=== PATIENT | female | born 1955 | race Caucasian/White ===

== ENCOUNTER 2020-09-29 21:40 | Emergency (ER) | payer MEDICARE, SELFPAY ==
--- NOTE | ~2020-09-29 | CT_ITS ---
EXAMINATION: CT ABDOMEN AND PELVIS WITHOUT CONTRAST CLINICAL INFORMATION: Lower abdominal pain. Review of prior studies indicates the history of ovarian cancer. COMPARISON: 01/20/2012. TECHNIQUE: Contiguous axial thin section helical images of the abdomen and pelvis were performed without oral or IV contrast. The data set was reformatted in the coronal and sagittal planes and reviewed on an independent workstation. DLP: 343 mGy-cm. FINDINGS: The visualized lung bases are clear. The visualized portions of the heart are unremarkable. The liver is of normal size and attenuation without focal lesions nor intrahepatic biliary ductal dilation. The patient is status post cholecystectomy. Surgical clips are present. The spleen, pancreas, adrenal glands are unremarkable. Both kidneys are of normal size and attenuation without hydronephrosis or nephrolithiasis. There is no abdominal free fluid. There is no retroperitoneal lymphadenopathy. Within the lower mesentery, there is an approximately 19 x 9 mm oval soft tissue focus. Within the lower quadrant just adjacent to the ascending colon, there is a similar appearing 14 by 8mm oval soft tissue focus. There is sigmoid diverticulosis without evidence of diverticulitis; otherwise, unremarkable unopacified loops of small and large bowel are identified. There is no pelvic free fluid. The urinary bladder is unremarkable. There is neither pelvic nor inguinal lymphadenopathy. Bone windows: Neither sclerotic nor lytic bone lesions are identified. CT/CT abdomen pelvis wo con IMPRESSION: Hydronephrosis nor nephrolithiasis. Two oval soft tissue lesions within the mesentery as stated above. The appearance could be enrollment representative of mesenteric adenitis, though these lesions are nonspecific. In consideration of the stated history of ovarian cancer, the appearance cannot be excluded as being enrollment representative of metastatic disease. Recommendation is for correlation with PET/CT for further tissue characterization. Automated exposure control (Care Dose) Adjustment of the mA and/or kv according to patient size (this includes techniques or standardized protocols for targeted exams where dose is matched to indication / reason for exam; i.e. extremities or head).
[2020-09-29 22:20] VITALS: BP 148/51; PULSE 84; RESP 18; TEMP 36.6; O2SAT 99; BMI 21.9
[2020-09-29 23:29] LABS: Glucose Urine UA 500 MG/DL (NEG); Leukocyte Esterase Urine NEG (NEG); Nitrite Urine NEG (NEG); PH 5.5 (5.0-8.0); Specific Gravity - Urine 1.025 (1.005-1.025); Urine Blood 3+ (NEG); Urine Ketones NEG (NEG); Urine Protein 2+ MG/DL (NEG-TRACE)
[2020-09-29 23:33] LABS: Appearance Urine TURBID; Color Urine RED
[2020-09-29 23:47] LABS: RBC Urine TNTC /HPF (0); Squamous Epithelial Cell Urine TRACE /LPF; WBC Urine 0-2 /HPF (0-4)
--- NOTE | 2020-09-30 00:47 | PC.NURSE ---
PT TO ROOM WITH C/O DIFFICULTY URINATING WITH PELVIC PAIN. PT CHG INTO GOWN AND MD AT BEDSIDE WITH PT. AWAITING FURTHER ORDERS.
--- NOTE | 2020-09-30 01:12 | ED.FEMALEGU ---
HPI - Female Genitourinary General Chief complaint: Urogenital-Female Stated complaint: trouble urinating Time Seen by Provider: 09/30/20 00:34 Source: patient Mode of arrival: ambulatory History of Present Illness HPI Narrative: This is a 65-year-old female with history of diabetes and ovarian cancer (2013) who states that she was recently told that she may have recurrence of her cancer and was scheduled to start chemotherapy this coming . She states that she has had a decrease in appetite and fatigue but denies any fevers, chills, nausea, vomiting, diarrhea, but then started having lower pelvic discomfort with an inability to pass urine this afternoon. She then states that when she did urinate it was ?all blood?. She says that earlier in the day she had spoken with her ?cancer doctor? in [place] but at that time she was not having the urinary symptoms that developed later. Related Data Allergies Allergy/AdvReac Type Severity Reaction Status Date / Time Iodinated Contrast Media Allergy Severe DIFF.BREATH Unverified 05/04/20 16:02 [IV Dye, Iodine Containing] ING Penicillins AdvReac Mild PASSED OUT Unverified 05/04/20 16:02 Environmental Allergy Mild ITCHY Uncoded 05/04/20 16:02 EYES/RUNNY NOSE DYE Allergy Unknown Uncoded 11/24/18 00:00 PENICILLIN G Allergy Unknown Uncoded 11/24/18 00:00 Review of Systems Review of Systems: Pertinent positives and negatives as stated in HPI and 10 point review of systems is otherwise negative. PMFSH Past Medical History Source: nursing notes reviewed Medical History Arthritis Diabetes Osteoporosis Pelvic cancer Surgical History History of colon resection Hx of cholecystectomy Social History Social History Advance Directives: No Physical Exam Vital Signs: Vital Signs: Last Vital Signs Temp 97.8 F 09/29/20 22:20 Pulse 75 09/30/20 02:00 Resp 18 09/30/20 02:00 BP 116/48 L 09/30/20 02:00 Pulse Ox 98 09/30/20 02:00 Body Mass Index 21.9 VITAL SIGNS: Reviewed. GENERAL: Well developed, well nourished, in no acute distress. HEAD: Normocephalic/atraumatic, EYES: PERRLA, EOMI OROPHARYNX: no oral lesions noted, posterior pharynx clear NECK: Supple, no adenopathy LUNGS: Normal breath sounds. SpO2<99> CARDIOVASCULAR: Regular rate and rhythm without noted murmurs ABDOMEN: Soft, tenderness along lower abdomen without rebound, non-distended with bowel sounds. NEUROLOGIC: Alert and oriented x 4. Course Course Course Narrative: This is a 65-year-old female with history and clinical presentation of recurrent cancer and now developing significant lower abdominal/pelvic pain with difficulty urinating and gross hematuria. On review of all investigations there are no acute findings as comparison lab work is from 2019. Although there is a noted anemia it is normocytic in nature. CT scan reported unremarkable bladder, however IV contrast was not used. Given that there was no evidence of hydronephrosis patient's stated complaint of an inability to urinate was likely secondary to not having a full bladder. On re-evaluation patient denies any further gross hematuria. She was discharged home in stable condition with strict instructions to follow-up with her primary care provider and discuss a referral to Urology as indicated. MDM - Female Genitourinary Lab Data Result diagrams: 09/30/20 00:58 09/30/20 00:58 Labs: Lab Results 09/29/20 09/30/20 09/30/20 Range/Units 22:32 00:58 00:58 WBC 8.1 (4.8-10.8) X10*3/uL RBC 4.09 L (4.20-5.50) X10*6/uL Hgb 11.5 L (12.0-16.0) g/dl Hct 35.2 L (37-47) % MCV 86.1 (80-98) fL MCH 28.1 (27.0-33.0) pg MCHC 32.7 (31.0-35.0) g/dl RDW 13.2 (11.0-16.0) % Plt Count 230 (160-400) X10*3/uL MPV 11.8 (9.4-12.3) fL Immature Gran % (Auto) 0.2 (0.0-0.4) % Neut % (Auto) 47.7 (45-73) % Lymph % (Auto) 42.7 H (20-40) % [place] % (Auto) 8.3 (2-11) % Eos % (Auto) 0.7 (0-4) % Baso % (Auto) 0.4 (0-2) % Lymph # (Auto) 3.4 (1.2-4.9) X10*3/uL [place] # (Auto) 0.7 (0.1-1.2) X10*3/uL Eos # (Auto) 0.1 (0.0-0.4) X10*3/uL Baso # (Auto) 0.0 (0.0-0.2) X10*3/uL Abs Immat Gran (auto) 0.02 (0.00-0.03) X10*3/uL Absolute Neuts (auto) 3.8 (2.0-8.3) X10*3/uL Absolute Nucleated RBC 0.000 (0.0-0.012) X10*3/uL Nucleated RBC % (auto) 0.0 (0.0-0.2) /100WBC Sodium 140 (135-145) mmol/L Potassium 4.0 (3.3-5.1) mmol/L Chloride 104 (96-108) mmol/L Carbon Dioxide 29 (22-29) mmol/L Anion Gap 11 L (12-20) BUN 11 (9-16) mg/dL Creatinine 0.69 (0.5-1.4) mg/dL Estim Creat Clear Calc 58.3 Estimated GFR > 60 Random Glucose 124 H (60-115) mg/dL Calcium 8.4 (8.4-10.2) mg/dL Total Bilirubin 0.3 (0.0-1.0) mg/dL AST 15 (5-31) U/L ALT 17 (0-31) U/L Alkaline Phosphatase 73 (39-117) U/L Total Protein 7.2 (6.5-8.0) g/dL Albumin 3.9 (3.5-5.0) g/dL Urine Color RED Urine Appearance TURBID Urine pH 5.5 (5.0-8.0) Ur Specific [place] 1.025 (1.005-1.025) Urine Protein 2+ H (NEG-TRACE) MG/DL Urine Glucose (UA) 500 H (NEG) MG/DL Urine Ketones NEG (NEG) MG/DL Urine Blood 3+ H (NEG) Urine Nitrite NEG (NEG) Ur Leukocyte Esterase NEG (NEG) Urine RBC TNTC H (0) /HPF Urine WBC 0-2 (0-4) /HPF Ur Squamous Epith Cells TRACE /LPF Urine Bacteria NONE /LPF Discharge Plan Discharge Clinical Impression: Acute urinary retention Hematuria Qualifiers: Hematuria type: gross Qualified Code(s): R31.0 - Gross hematuria Patient Disposition: Home, Self-Care Instructions: Hematuria (ED), Acute Urinary Retention in Women (ED) Additional Instructions: 1. Reanude todos los medicamentos caseros seg?n lo prescrito. 2. Lalito un seguimiento con dwyer proveedor de atenci?n primaria y analice alphonse posible derivaci?n a Urolog?a para dwyer hematuria. 3. Incrementar la hidrataci?n de los fluidos especialmente con agua. Regrese al departamento de emergencias si experimenta un empeoramiento vinnie de ej s?ntomas. Referrals: Katalina Larson MD [Primary Care Provider] - 2 days (For evaluation after seen in the emergency department for hematuria.)
--- NOTE | 2020-09-30 01:23 | PC.NURSE ---
BLADDER SCAN REVEALED 20ML OF URINE IN BLADDER, MD AWARE. IV PLACED TO LAC, LABS DRAWN TO LAB. NS UP AND RUNNING W/O, SITE INTACT. WILL CONTINUE TO MONITOR PT.
[2020-09-30] MEDS: 0.9 % Sodium Chloride 2,000 ML 999 ML IV (01:35)
[2020-09-30 01:37] LABS: Basophils Percent Auto 0.4 % (0-2); Eosinophils Absolute Auto 0.1 X10*3/uL (0.0-0.4); Eosinophils Percent Auto 0.7 % (0-4); Hematocrit 35.2 % (37-47); Hemoglobin 11.5 g/dl (12.0-16.0); Imm Gran Abs Auto 0.02 X10*3/uL (0.00-0.03); Imm Gran Pct Auto 0.2 % (0.0-0.4); Lymphocytes Absolute Auto 3.4 X10*3/uL (1.2-4.9); Lymphocytes Percent Auto 42.7 % (20-40); MANUAL DIFF FLAG NO; Mean Corpuscular HGB Conc 32.7 g/dl (31.0-35.0); Mean Corpuscular Hemoglobin 28.1 pg (27.0-33.0); Mean Corpuscular Volume 86.1 fL (80-98); Mean Platelet Volume 11.8 fL (9.4-12.3); Monocytes Absolute Auto 0.7 X10*3/uL (0.1-1.2); Monocytes Percent Auto 8.3 % (2-11); Neutrophils Absolute Auto 3.8 X10*3/uL (2.0-8.3); Neutrophils Percent Auto 47.7 % (45-73); Platelet Count 230 X10*3/uL (160-400); Red Blood Count 4.09 X10*6/uL (4.20-5.50); Red Cell Distribution Width 13.2 % (11.0-16.0); White Blood Count 8.1 X10*3/uL (4.8-10.8)
[2020-09-30 02:00] VITALS: BP 116/48; PULSE 75; RESP 18; O2SAT 98
[2020-09-30 02:19] LABS: Alanine Aminotransferase 17 U/L (0-31); Albumin Level 3.9 g/dL (3.5-5.0); Alkaline Phosphatase 73 U/L (39-117); Anion Gap 11 (12-20); Aspartate Amino Transferase 15 U/L (5-31); Bilirubin Total 0.3 mg/dL (0.0-1.0); Blood Urea Nitrogen 11 mg/dL (9-16); Calcium 8.4 mg/dL (8.4-10.2); Carbon Dioxide 29 mmol/L (22-29); Chloride 104 mmol/L (96-108); Creatinine Clr Calc Pharmacy 58.3; Estimated Glomerular Filt Rate > 60; Glucose Random 124 mg/dL (60-115); Sodium 140 mmol/L (135-145); Total Protein 7.2 g/dL (6.5-8.0)
[2020-09-30 05:16] LABS: Glucose Urine UA NEG (NEG); Leukocyte Esterase Urine NEG (NEG); Nitrite Urine NEG (NEG); Specific Gravity - Urine 1.015 (1.005-1.025); Urine Blood 1+ (NEG); Urine Ketones NEG (NEG); Urine Protein NEG (NEG-TRACE)
[2020-09-30 05:17] LABS: Appearance Urine CLEAR; Color Urine COLORLESS
[2020-09-30 05:40] LABS: Bacteria Urine TRACE /LPF; Squamous Epithelial Cell Urine TRACE /LPF; WBC Urine 0-2 /HPF (0-4)
== END 2020-09-30 05:14 | disposition home or self-care (01) ==
PROVIDERS: Emergency Provider Student in an Organized Health Care Education/Training Program; PCP Pediatrics
DX: R33.9 Retention of urine, unspecified (principal); R31.0 Gross hematuria; C76.3 Malignant neoplasm of pelvis; E11.9 Type 2 diabetes mellitus without complications; Z90.49 Acquired absence of other specified parts of digestive tract
CPT/HCPCS: 36415; 51798; 74176; 80053; 81001; 85025; 96360; 99284

== ENCOUNTER 2021-03-18 10:00 | Emergency (ER) | payer MEDICARE, SELFPAY ==
--- NOTE | ~2021-03-18 | CT_ITS ---
EXAMINATION: CT ABDOMEN AND PELVIS WITHOUT CONTRAST CLINICAL INFORMATION: Abdominal pain, on feeding tube COMPARISON: 09/30/2020 TECHNIQUE: Multidetector volumetric imaging was performed from the superior aspect of the liver through the pubic symphysis. Sagittal and coronal reformatted images were obtained on the technologist's workstation. This CT examination was performed using dose optimization techniques as appropriate, variously including the following: *Automated exposure control *Adjustment of mA and/or kV according to patient size (this includes techniques or standardized protocols for targeted exams where dose is matched to indication/reason for exam; i.e. extremities or head) *Use of iterative reconstruction technique DLP: 274 mGy-cm FINDINGS: LUNG BASES: Small, 0.3 cm noncalcified nodule in the posterior right lower lobe is new compared to 09/30/2020 (image 43, series 4). No pulmonary consolidation or pleural effusion at either lung base. LIVER: Mild, diffuse steatosis of the liver. No focal hepatic lesions are detected on this noncontrast examination. GALLBLADDER AND BILIARY TREE: Gallbladder is surgically absent. No intrahepatic or extrahepatic bile duct dilatation. PANCREAS: Normal. No edema, pancreatic ductal dilatation or mass. SPLEEN: Normal. ADRENAL GLANDS: Normal. KIDNEYS AND URETERS: The kidneys have normal size and cortical thickness. No mass or perinephric fluid collection. No urolithiasis or hydroureteronephrosis. BLADDER: Urinary bladder is nearly completely empty and suboptimally evaluated. No bladder calculi. BOWEL AND PERITONEUM: Stomach is underdistended. No dilated bowel loops. The evaluation of bowel is limited on this examination performed without either oral or intravenous contrast. Compared to 09/30/2020, there has been interval surgery of small bowel with new anastomotic suture lines seen along small bowel in the lower abdomen/pelvis. The loop of bowel extending between the region of anastomoses is collapsed and appears to have a thickened wall, and there is surrounding mesenteric fat stranding. However, no evidence of an organized fluid collection/abscess or pneumoperitoneum. No evidence of a hyperdense hematoma in the mesentery in this area. There is an intact anastomosis of the sigmoid colon in the left lower pelvis. ABDOMINAL WALL: Mild haziness around tissues of the midline postoperative wound of the abdominal wall. No abdominal wall fluid collection or hernia. VASCULATURE: Mild atherosclerosis of the abdominal aorta without aneurysm. LYMPH NODES: No pathologic sized lymph nodes in the abdomen or pelvis. No inguinal lymphadenopathy. PELVIC VISCERA: The uterus is absent. No adnexal mass or pelvic free fluid. SKELETAL: Bones are diffusely osteopenic. No suspicious osseous lesions. CT/CT abdomen pelvis wo con IMPRESSION: * Small, 0.3 cm nodule in the posterior right lower lobe is new compared to 09/30/2020. Based on Fleischner Society guidelines, follow-up is not recommended in a low-risk patient and would be considered optional at 12 months in a high risk patient. However, if the patient has history of carcinoma, then noncontrast study chest CT follow up at a shorter time interval may be warranted. * Diffuse hepatic steatosis. * Findings are suspicious for a focal enteritis, however, correlation with details from recent surgery would be helpful. There is mesenteric fat stranding in the area of small bowel surgery. The bowel lundberg in the region of surgery appear to be thickened, inflamed, and there is a collapsed segment of small bowel extending between the areas of bowel anastomosis. However, no abnormally dilated loops. No bowel obstruction. There is no mesenteric abscess. Note that evaluation of bowel is suboptimal due to the noncontrast nature of this test.
[2021-03-18 10:05] VITALS: BP 108/66; BP 111/52; PULSE 101; PULSE 110; TEMP 36.6; O2SAT 100; O2SAT 98; BMI 18.3
--- NOTE | 2021-03-18 10:44 | ED.FEMALEGU ---
HPI - Female Genitourinary General Chief complaint: Urogenital-Female Stated complaint: BLOOD IN URINE,ABD PAIN H/O OVARIAN CANCER Time Seen by Provider: 03/18/21 10:17 Source: patient Mode of arrival: ambulatory Limitations: no limitations History of Present Illness HPI Narrative: 66-year-old female status post hist and ovarian removal patient on chemotherapy has been having hematuria and clots with her urine. Patient complaining of belly pain. Patient has been able eat for the past 2 months she gets all her care at [facility] but states that when she was there recently she had surgery the closed up and then they did nothing for her. Patient denies fevers falls she denies nausea vomiting or diarrhea. Related Data Previous Rx's Medication Instructions Recorded levofloxacin 500 mg tablet 500 mg PO DAILY #7 tab 03/18/21 metronidazole 500 mg tablet 500 mg PO TID #30 tab 03/18/21 Allergies Allergy/AdvReac Type Severity Reaction Status Date / Time Iodinated Contrast Media Allergy Severe DIFF.BREATH Unverified 05/04/20 16:02 [IV Dye, Iodine Containing] ING Penicillins AdvReac Mild PASSED OUT Unverified 05/04/20 16:02 Environmental Allergy Mild ITCHY Uncoded 05/04/20 16:02 EYES/RUNNY NOSE DYE Allergy Unknown Uncoded 11/24/18 00:00 PENICILLIN G Allergy Unknown Uncoded 11/24/18 00:00 Review of Systems Review of Systems: Review of systems: General: Patient denies any fever chills recent illness or falls Musculoskeletal: Denies back pain or body aches or other injuries HEENT: denies headache, runny nose, ear pain Respiratory: denies shortness of breath, cough Cardiovascular: no chest pain or palpitations : Passing blood clots hematuria denies dysuria, frequency Abdomen: no nausea vomiting she does have generalized abdominal pain Extremities: no swelling, no pain Skin: no diaphoresis Yes all other systems are reviewed and are negative PMFSH Past Medical History Medical History Arthritis Diabetes Osteoporosis Pelvic cancer Surgical History History of colon resection Hx of cholecystectomy Social History Social History Advance Directives: No Advance Directives Information Provided: No Patient : No Physical Exam Vital Signs: Vital Signs: Last Vital Signs Temp 97.8 F 03/18/21 10:05 Pulse 88 03/18/21 12:09 BP 111/38 L 03/18/21 12:12 Pulse Ox 100 03/18/21 12:09 Body Mass Index 18.3 General: Well-appearing well-nourished in no signs of distress HEENT: Normocephalic atraumatic Neck: No signs of JVD, no masses no tenderness or lymphadenopathy Cardiovascular: Regular rate and rhythm Respiratory: Clear to auscultation bilaterally Abdomen: Soft tender all over the belly she has got a healing but recent surgical scar to her mid abdomen Extremities: Normal pedal pulses no signs of edema Skin: Dry warm no rashes Back: No tenderness full ROM MDM - Female Genitourinary MDM Narrative Medical decision making narrative: Concern for postsurgical issue versus UTI patient also having blood clots could be cancer. 1258 patient required anything for pain urine does not show any bacteria just blood. Also the patient antibiotics to see if this is inflammation that is will benefit from antibiotics initially to follow-up with urology. I did explain this to her and her daughter. CT scan does not show anything surgical that just this was nonspecific enteritis at the site she has follow-up with her surgeon on Friday not think this patient needs to be admitted for this I will start the patient on levoflaxacin and flagyl Lab Data Result diagrams: 03/18/21 11:21 03/18/21 11:21 Labs: Lab Results 03/18/21 03/18/21 03/18/21 Range/Units 11: 11:21 11:21 WBC 10.9 H (4.8-10.8) X10*3/uL RBC 4.31 (4.20-5.50) X10*6/uL Hgb 10.6 L (12.0-16.0) g/dl Hct 34.1 L (37-47) % MCV 79.1 L (80-98) fL MCH 24.6 L (27.0-33.0) pg MCHC 31.1 (31.0-35.0) g/dl RDW 16.1 H (11.0-16.0) % Plt Count 410 H D (160-400) X10*3/uL MPV 11.2 (9.4-12.3) fL Immature Gran % (Auto) 0.5 H (0.0-0.4) % Neut % (Auto) 62.0 (45-73) % Lymph % (Auto) 26.4 (20-40) % Day % (Auto) 9.7 (2-11) % Eos % (Auto) 1.0 (0-4) % Baso % (Auto) 0.4 (0-2) % Lymph # (Auto) 2.9 (1.2-4.9) X10*3/uL Day # (Auto) 1.1 (0.1-1.2) X10*3/uL Eos # (Auto) 0.1 (0.0-0.4) X10*3/uL Baso # (Auto) 0.0 (0.0-0.2) X10*3/uL Abs Immat Gran (auto) 0.05 H (0.00-0.03) X10*3/uL Absolute Neuts (auto) 6.8 (2.0-8.3) X10*3/uL Absolute Nucleated RBC 0.000 (0.0-0.012) X10*3/uL Nucleated RBC % (auto) 0.0 (0.0-0.2) /100WBC Sodium 138 (135-145) mmol/L Potassium 3.9 (3.3-5.1) mmol/L Chloride 104 (96-108) mmol/L Carbon Dioxide 24 (22-29) mmol/L Anion Gap 14 (12-20) BUN 9 (9-16) mg/dL Creatinine 0.56 (0.5-1.4) mg/dL Estim Creat Clear Calc 66.5 Estimated GFR > 60 Random Glucose 160 H (60-115) mg/dL Calcium 8.8 (8.4-10.2) mg/dL Total Bilirubin 0.2 (0.0-1.0) mg/dL Direct Bilirubin < 0.2 (0.0-0.5) mg/dL AST 12 (5-31) U/L ALT 11 (0-31) U/L Alkaline Phosphatase 101 D (39-117) U/L Total Protein 7.6 (6.5-8.0) g/dL Albumin 3.4 L (3.5-5.0) g/dL Urine Color PINK Urine Appearance HAZY Urine pH 5.5 (5.0-8.0) Ur Specific [place] 1.010 (1.005-1.025) Urine Protein 1+ H (NEG-TRACE) MG/DL Urine Glucose (UA) NEG (NEG) MG/DL Urine Ketones NEG (NEG) MG/DL Urine Blood 3+ H (NEG) Urine Nitrite NEG (NEG) Ur Leukocyte Esterase NEG (NEG) Urine RBC TNTC H (0) /HPF Urine WBC 1-4 (0-4) /HPF Ur Squamous Epith Cells 1+ /LPF Urine Bacteria NONE /LPF Urine Mucus 1+ /LPF Discharge Plan Discharge Clinical Impression: Urinary tract infection, Enteritis Patient Disposition: Home, Self-Care Instructions: Urinary Tract Infection in Women (ED), Hematuria (ED), Enteritis (ED) Additional Instructions: Please keep your appointment for Friday. Please describe the pain you are having. If you hav any other concerns please return to the ED. Prescriptions: New levofloxacin 500 mg tablet 500 mg PO DAILY Qty: 7 RF: 0 metronidazole 500 mg tablet 500 mg PO TID Qty: 30 RF: 0
[2021-03-18] MEDS: 0.9 % Sodium Chloride 500 ML 999 ML IV (10:55)
[2021-03-18 11:26] LABS: MANUAL DIFF FLAG NO
[2021-03-18 11:29] LABS: Basophils Percent Auto 0.4 % (0-2); Eosinophils Absolute Auto 0.1 X10*3/uL (0.0-0.4); Hematocrit 34.1 % (37-47); Hemoglobin 10.6 g/dl (12.0-16.0); Imm Gran Abs Auto 0.05 X10*3/uL (0.00-0.03); Imm Gran Pct Auto 0.5 % (0.0-0.4); Lymphocytes Absolute Auto 2.9 X10*3/uL (1.2-4.9); Lymphocytes Percent Auto 26.4 % (20-40); Mean Corpuscular HGB Conc 31.1 g/dl (31.0-35.0); Mean Corpuscular Hemoglobin 24.6 pg (27.0-33.0); Mean Corpuscular Volume 79.1 fL (80-98); Mean Platelet Volume 11.2 fL (9.4-12.3); Monocytes Absolute Auto 1.1 X10*3/uL (0.1-1.2); Monocytes Percent Auto 9.7 % (2-11); Neutrophils Absolute Auto 6.8 X10*3/uL (2.0-8.3); Platelet Count 410 X10*3/uL (160-400); Red Blood Count 4.31 X10*6/uL (4.20-5.50); Red Cell Distribution Width 16.1 % (11.0-16.0); White Blood Count 10.9 X10*3/uL (4.8-10.8)
[2021-03-18 11:32] LABS: Glucose Urine UA NEG (NEG); Leukocyte Esterase Urine NEG (NEG); Nitrite Urine NEG (NEG); PH 5.5 (5.0-8.0); UACC Culture Trigger NO; Urine Blood 3+ (NEG); Urine Ketones NEG (NEG); Urine Protein 1+ MG/DL (NEG-TRACE)
[2021-03-18 11:50] LABS: Appearance Urine HAZY; Color Urine PINK
[2021-03-18 11:52] LABS: Mucus Urine 1+ /LPF; RBC Urine TNTC /HPF (0); Squamous Epithelial Cell Urine 1+ /LPF
[2021-03-18 11:55] LABS: Alanine Aminotransferase 11 U/L (0-31); Albumin Level 3.4 g/dL (3.5-5.0); Alkaline Phosphatase 101 U/L (39-117); Anion Gap 14 (12-20); Aspartate Amino Transferase 12 U/L (5-31); Bilirubin Direct < 0.2 mg/dL (0.0-0.5); Bilirubin Total 0.2 mg/dL (0.0-1.0); Blood Urea Nitrogen 9 mg/dL (9-16); Calcium 8.8 mg/dL (8.4-10.2); Carbon Dioxide 24 mmol/L (22-29); Chloride 104 mmol/L (96-108); Creatinine Clr Calc Pharmacy 66.5; Estimated Glomerular Filt Rate > 60; Glucose Random 160 mg/dL (60-115); Potassium 3.9 mmol/L (3.3-5.1); Sodium 138 mmol/L (135-145); Total Protein 7.6 g/dL (6.5-8.0)
[2021-03-18 12:09] VITALS: BP 114/30; PULSE 88; O2SAT 100
[2021-03-18 12:12] VITALS: BP 111/38
[2021-03-18] MEDS: metroNIDAZOLE 500 MG TABLET PO (13:26)
[2021-03-18] MEDS: levoFLOXacin 500 MG TABLET PO (13:26)
--- NOTE | 2021-03-18 13:53 | PC.NURSE ---
Pt request to flush picc line at home.
== END 2021-03-18 13:55 | disposition home or self-care (01) ==
PROVIDERS: Emergency Provider Student in an Organized Health Care Education/Training Program; PCP Pediatrics
DX: N39.0 Urinary tract infection, site not specified (principal); K52.9 Noninfective gastroenteritis and colitis, unspecified; C56.9 Malignant neoplasm of unspecified ovary; R31.9 Hematuria, unspecified; Z79.899 Other long term (current) drug therapy
CPT/HCPCS: 36415; 74176; 80048; 80076; 81001; 85025; 96360; 96361; 99284

== ENCOUNTER 2021-05-03 15:48 | Inpatient (IN) | payer MEDICARE, SELFPAY ==
--- NOTE | ~2021-05-03 | CT_ITS ---
EXAMINATION: CT ABDOMEN AND PELVIS WITHOUT CONTRAST CLINICAL INFORMATION: Abdominal and pelvic pain. COMPARISON: CT abdomen pelvis 03/18/2021 TECHNIQUE: Multidetector volumetric imaging was performed from the superior aspect of the liver through the pubic symphysis. Sagittal and coronal reformatted images were obtained on the technologist's workstation. This CT examination was performed using dose optimization techniques as appropriate, variously including the following: *Automated exposure control *Adjustment of mA and/or kV according to patient size (this includes techniques or standardized protocols for targeted exams where dose is matched to indication/reason for exam; i.e. extremities or head) *Use of iterative reconstruction technique DLP: 293 mGy-cm FINDINGS: LUNG BASES: There is are several right lower lobe pulmonary nodules. A 5 mm nodule right lower lobe axial image 13/7, a 6 7 nodule right lower lobe image 12/7, 2 nodule right lower lobe axial image 10/7, slightly ill-defined 9 mm nodule right lower lobe axial image 6/7. On the last exam only one nodule is seen in this region. Scratch that LIVER, GALLBLADDER, AND BILIARY TREE: The liver is normal in size, shape, and attenuation. No focal hepatic lesion or biliary ductal dilatation is present. The gallbladder has been surgically removed. PANCREAS: Unremarkable. SPLEEN: Unremarkable. ADRENAL GLANDS: Unremarkable. KIDNEYS AND URETERS: The kidneys are normal in size, shape, and attenuation. No hydronephrosis, hydroureter, or calculi seen. No perinephric stranding. BLADDER: Unremarkable. GASTROINTESTINAL TRACT: The stomach is nondistended and appears unremarkable. There is anastomotic suture line involving segments of small bowel loop in the midabdomen. There are multiple dilated small bowel loops with air-fluid level extending to the right midabdomen quadrant on axial image 46/3 where a second suture line is noted. Beyond this line there appears to be normal caliber small bowel loops. This may represent the site of narrowing. There is postsurgical mesenteric edema and scarring in this region. There is scattered diverticuli seen throughout the colon without any diverticulitis. No free air or free fluid seen. ABDOMINAL WALL: Postsurgical changes are seen along the anterior midline abdominal wall from surgical intervention. There is no evidence of hernia. LYMPH NODES: Normal. VASCULAR: Unremarkable. PELVIC VISCERA: The uterus is likely surgically removed. No adnexal mass or free fluid seen. No abnormal pelvic lymph nodes. OSSEOUS STRUCTURES: No lytic or sclerotic process seen. CT/CT abdomen pelvis wo con IMPRESSION: There are 2 areas of anastomotic suture line involving the small bowel loops in midabdomen. At one of the midline suture line there are several moderately dilated small bowel loops with moderate to large air-fluid level extending to the second suture level on axial image 46/3. This is likely cause of obstruction suspected. It could be secondary to adhesions or stricture or narrowing at the suture site. The small bowel loops beyond this segment are normal. Colonic diverticulosis without diverticulitis. No free air or free fluid. Multiple new nodules seen in the right lower lobe worrisome for metastatic disease.
--- NOTE | ~2021-05-03 | XR_ITS ---
EXAMINATION: XR ABDOMEN KUB CLINICAL INDICATION: Abdominal pain COMPARISON: CT scan and pelvis May 03, 2021 TECHNIQUE: AP view of the abdomen. FINDINGS: The bowel gas pattern is normal with no evidence of ileus or obstruction. Small to moderate volume of stool in colon. No unusual soft tissue calcifications are noted. Surgical clips right upper quadrant of abdomen. Surgical sutures in the mid and lower abdomen pelvis. Mild degenerative spondylosis of the lumbar spine. Moderate degenerative joint disease of hips bilateral. EKG leads and a catheter overlie the abdomen. XR/XR KUB IMPRESSION: No acute abnormality.
[2021-05-03 16:31] VITALS: BP 94/47; PULSE 96; RESP 18; TEMP 37.4; O2SAT 100; BMI 19.4
[2021-05-03 17:37] VITALS: BP 108/52; PULSE 95; RESP 20; TEMP 36.5; O2SAT 95
[2021-05-03 17:53] LABS: Appearance Urine CLEAR; Color Urine YELLOW; Glucose Urine UA NEG (NEG); Leukocyte Esterase Urine NEG (NEG); Nitrite Urine POS (NEG); UACC Culture Trigger YES; Urine Blood 2+ (NEG); Urine Ketones NEG (NEG); Urine Protein 1+ MG/DL (NEG-TRACE)
--- NOTE | 2021-05-03 17:57 | ED_ITS ---
HPI - Abdominal Pain General Chief Complaint: Abdominal Pain Stated Complaint: fever, abd pain Time Seen by Provider: 05/03/21 17:57 Source: patient Mode of arrival: ambulatory Limitations: no limitations History of Present Illness HPI narrative: 66-year-old female with past medical history of diabetes and ovarian cancer is here today for complaining of pelvic pain and bilateral flank pain. Patient reports that she had surgery at [facility] in her urologist office ? Cystoscopy. Patient had no urinary tract infection, was seen here in the beginning of March for abdominal pain and was discharged home with enteritis and blood in her urine. Patient reports chills and fever started yesterday. Denies any vomiting, diarrhea or constipation. Patient reports that she does have trouble passing urine, patient denies any other symptoms. Related Data Home Medications Medication Instructions Recorded Confirmed fluticasone propionate 50 1 spray INTRANASAL DAILY PRN 05/03/21 05/03/21 mcg/actuation nasal spray,suspension melatonin 5 mg tablet 1 tab PO BEDTIME 05/03/21 05/03/21 metformin 1,000 mg tablet 1 tab PO BID 05/03/21 05/03/21 sennosides 8.6 mg-docusate sodium 2 tab PO DAILY PRN 05/03/21 05/03/21 50 mg tablet (Senexon-S) Allergies Allergy/AdvReac Type Severity Reaction Status Date / Time Iodinated Contrast Media Allergy Severe DIFF.BREATH Verified 05/03/21 16:31 [IV Dye, Iodine Containing] ING Penicillins AdvReac Mild PASSED OUT Verified 05/03/21 16:31 Environmental Allergy Mild ITCHY Uncoded 05/04/20 16:02 EYES/RUNNY NOSE DYE Allergy Unknown Unknown Uncoded 05/03/21 16:31 PENICILLIN G Allergy Unknown Unknown Uncoded 05/03/21 16:31 Review of Systems Review of Systems Constitutional : No Weight loss, No Fever, No Chills, No Night Sweats, No Fatigue, No Malaise ENT/Mouth : No Hearing loss, No Ear Pain, No Nasal Congestion, No Sinus Pain, No Hoarseness, No sore throat, No Rhinorrhea, No Swallowing Difficulty Eyes: No Eye Pain, No Swelling, No Redness, No Foreign Body, No Discharge, No Vision Changes Cardiovascular : No Chest Pain, No SOB, No Dyspnea on Exertion, No Orthopnea, No Edema, No Palpitations Respiratory : No Cough, No Sputum, No Wheezing, No Smoke Exposure, No Dyspnea Gastrointestinal : No Nausea, No Vomiting, No Diarrhea, No Constipation, abdominal Pain, No Hematochezia, No Melena Genitourinary : no irregular bleeding, No Dysuria, Urinary Frequency, No Hematuria, No Urinary Incontinence, Urgency, No Flank Pain, Urinary Flow Changes, No Hesitancy Musculoskeletal : No joint pain, No Myalgias, No Joint Swelling Skin : No Skin Lesions, No rash Neuro : No Weakness, No Numbness, No Paresthesias, No Loss of Consciousness, No Dizziness, No Headache Psych : No Anxiety/Panic, No Depression, No SI/HI/AH/VH, No Social Issues, Heme/Lymph: No Bruising, No Bleeding,No Lymphadenopathy Endocrine : No Polyuria, No Polydipsia, No Temperature Intolerance Yes all other systems are reviewed and are negative Physical Exam Vital Signs: Vital Signs: Last Vital Signs Temp 99.1 F 05/03/21 19:50 Pulse 100 05/03/21 19:50 Resp 18 05/03/21 19:50 BP 110/37 L 05/03/21 19:50 Pulse Ox 98 05/03/21 19:50 Body Mass Index 19.4 Const: General: healthy appearing, no acute distress and well developed Nutritional Appearance: well nourished Orientation/consciousness: patient oriented x3 Neck: Neck: Yes normal visual inspection, Yes full ROM and Yes trachea midline Thyroid: Thyroid normal Resp: Auscultation: clear to auscultation bilaterally Cardio: Rate: regular rate Rhythm: regular rhythm GI: Inspection: Yes normal to inspection and No distended Palpation (GI): Soft to palpation, Tenderness to palpation present (GI) (Lower mid abdomen and pelvic area), Guarding due to palpation present (GI) in the LLQ and other (CVA tenderness), No hepatosplenomegaly present and Bladder palpation abnormal (Tenderness over bladder region) Auscultation: normal bowel sounds : General: Yes Bladder palpation abnormal (Tenderness over bladder region) and Yes CVA tenderness Back/Spine/Pelvis: Back: CVA tenderness Skin: General skin exam: elasticity normal, turgor normal and dry skin Neuro: General: patient oriented x3 Course Course Course Narrative: 66 years old female with past medical history of diabetes and ovarian cancer is here today for complaints of fever, chills, pelvic and flank pain. Patient had procedure at [facility] with her urologist 2 days ago and started with fevers and chills yesterday. Patient reports pain and burning with urination, urgency. Patient denies nausea, vomiting, diarrhea. Patient denies any melena, hematochezia, unintentional weight loss or ribbon like stools. Patient denies dysphagia, dyspepsia or odynophagia. Patient has a history of metastatic bladder CA in September with procedure and removal in November. Patient started with hematuria and had procedure 2 days ago at [facility] to correct the bleeding. Today patient presents with lower pelvic and abdominal discomfort. Patient is receiving special TPN infusion and she is NPO? Patient denies nausea, dyspepsia, vomiting. Low blood pressure in triage, will older CBC, CMP, fluids, antibiotics, lactic acid and blood cultures. Urinalysis shows nitrate, RBC and bacteria. Reevaluation(s) Reevaluation #1: White count 19.3, H&H 8.6 and 27.2. Will order levofloxacin, abdominal CT still pending. Will admit to hospital for antibiotic therapy with bacteremia Reevaluation #2: Spoke with Dr. Flores who will see patient tomorrow. Spoke with surgeon as well Dr. Berger who will be reviewing the CT scan Reevaluation #3: Patient has metastatic bowel disease. Spoke to surgery will do NG tube. Spoke with Urology will place Moses catheter to decompress the bladder. Patient will be admitted to hospitalist services. Tried calling [facility] for transferred as patient is receiving care there and unable to do so. Patient is agreeable to stay here. Call placed to medical records to receive records from [facility], awaiting fax report MDM - Abdominal Pain Lab Data Result diagrams: 05/03/21 18:22 05/03/21 18:22 Labs: Lab Results 05/03/21 05/03/21 05/03/21 Range/Units 17:43 18:22 18:22 WBC 19.3 H (4.8-10.8) X10*3/uL RBC 3.74 L (4.20-5.50) X10*6/uL Hgb 8.6 L (12.0-16.0) g/dl Hct 27.2 L D (37-47) % MCV 72.7 L (80-98) fL MCH 23.0 L (27.0-33.0) pg MCHC 31.6 (31.0-35.0) g/dl RDW 16.3 H (11.0-16.0) % Plt Count 528 H D (160-400) X10*3/uL MPV 10.1 (9.4-12.3) fL Immature Gran % (Auto) 0.6 H (0.0-0.4) % Neut % (Auto) 72.7 (45-73) % Lymph % (Auto) 19.6 L (20-40) % [place] % (Auto) 6.3 (2-11) % Eos % (Auto) 0.5 (0-4) % Baso % (Auto) 0.3 (0-2) % Lymph # (Auto) 3.8 (1.2-4.9) X10*3/uL [place] # (Auto) 1.2 (0.1-1.2) X10*3/uL Eos # (Auto) 0.1 (0.0-0.4) X10*3/uL Baso # (Auto) 0.1 (0.0-0.2) X10*3/uL Abs Immat Gran (auto) 0.11 H (0.00-0.03) X10*3/uL Absolute Neuts (auto) 14.0 H (2.0-8.3) X10*3/uL Absolute Nucleated RBC 0.000 (0.0-0.012) X10*3/uL Nucleated RBC % (auto) 0.0 (0.0-0.2) /100WBC Sodium 134 L (135-145) mmol/L Potassium 4.1 (3.3-5.1) mmol/L Chloride 103 (96-108) mmol/L Carbon Dioxide 25 (22-29) mmol/L Anion Gap 10 L (12-20) BUN 10 (9-16) mg/dL Creatinine 0.52 (0.5-1.4) mg/dL Estim Creat Clear Calc 75.7 Estimated GFR > 60 Random Glucose 134 H (60-115) mg/dL Lactic Acid (0.5-2.0) mmol/L Calcium 8.5 (8.4-10.2) mg/dL Total Bilirubin 0.3 (0.0-1.0) mg/dL AST 13 (5-31) U/L ALT 14 (0-31) U/L Alkaline Phosphatase 107 (39-117) U/L Total Protein 7.3 (6.5-8.0) g/dL Albumin 3.3 L (3.5-5.0) g/dL Urine Color YELLOW Urine Appearance CLEAR Urine pH 6.0 (5.0-8.0) Ur Specific [place] 1.020 (1.005-1.025) Urine Protein 1+ H (NEG-TRACE) MG/DL Urine Glucose (UA) NEG (NEG) MG/DL Urine Ketones NEG (NEG) MG/DL Urine Blood 2+ H (NEG) Urine Nitrite POS H (NEG) Ur Leukocyte Esterase NEG (NEG) Urine RBC 5-9 H (0) /HPF Urine WBC 0 (0-4) /HPF Ur Squamous Epith Cells NONE /LPF Urine Bacteria 1+ /LPF Urine Yeast /HPF COVID-19 ([facility]ULLEN) (Negative) COVID-19 Clin Com 05/03/21 05/03/21 05/03/21 Range/Units 18:22 18:23 20:11 WBC (4.8-10.8) X10*3/uL RBC (4.20-5.50) X10*6/uL Hgb (12.0-16.0) g/dl Hct (37-47) % MCV (80-98) fL MCH (27.0-33.0) pg MCHC (31.0-35.0) g/dl RDW (11.0-16.0) % Plt Count (160-400) X10*3/uL MPV (9.4-12.3) fL Immature Gran % (Auto) (0.0-0.4) % Neut % (Auto) (45-73) % Lymph % (Auto) (20-40) % [place] % (Auto) (2-11) % Eos % (Auto) (0-4) % Baso % (Auto) (0-2) % Lymph # (Auto) (1.2-4.9) X10*3/uL [place] # (Auto) (0.1-1.2) X10*3/uL Eos # (Auto) (0.0-0.4) X10*3/uL Baso # (Auto) (0.0-0.2) X10*3/uL Abs Immat Gran (auto) (0.00-0.03) X10*3/uL Absolute Neuts (auto) (2.0-8.3) X10*3/uL Absolute Nucleated RBC (0.0-0.012) X10*3/uL Nucleated RBC % (auto) (0.0-0.2) /100WBC Sodium (135-145) mmol/L Potassium (3.3-5.1) mmol/L Chloride (96-108) mmol/L Carbon Dioxide (22-29) mmol/L Anion Gap (12-20) BUN (9-16) mg/dL Creatinine (0.5-1.4) mg/dL Estim Creat Clear Calc Estimated GFR Random Glucose (60-115) mg/dL Lactic Acid 1.1 (0.5-2.0) mmol/L Calcium (8.4-10.2) mg/dL Total Bilirubin (0.0-1.0) mg/dL AST (5-31) U/L ALT (0-31) U/L Alkaline Phosphatase (39-117) U/L Total Protein (6.5-8.0) g/dL Albumin (3.5-5.0) g/dL Urine Color YELLOW Urine Appearance HAZY Urine pH 6.0 (5.0-8.0) Ur Specific [place] 1.025 (1.005-1.025) Urine Protein 1+ H (NEG-TRACE) MG/DL Urine Glucose (UA) NEG (NEG) MG/DL Urine Ketones NEG (NEG) MG/DL Urine Blood 3+ H (NEG) Urine Nitrite POS H (NEG) Ur Leukocyte Esterase NEG (NEG) Urine RBC 15-29 H (0) /HPF Urine WBC 0 (0-4) /HPF Ur Squamous Epith Cells 1+ /LPF Urine Bacteria 1+ /LPF Urine Yeast TRACE /HPF COVID-19 ([facility]EN) Negative (Negative) COVID-19 Clin Com See Note Imaging Data CT scan - abdomen: Radiologist's impression: FINDINGS: LUNG BASES: There is are several right lower lobe pulmonary nodules. A 5 mm nodule right lower lobe axial image 13/7, a 6 7 nodule right lower lobe image 12/7, 2 nodule right lower lobe axial image 10/7, slightly ill-defined 9 mm nodule right lower lobe axial image 6/7. On the last exam only one nodule is seen in this region. Scratch that LIVER, GALLBLADDER, AND BILIARY TREE: The liver is normal in size, shape, and attenuation. No focal hepatic lesion or biliary ductal dilatation is present. The gallbladder has been surgically removed.? PANCREAS: Unremarkable.? SPLEEN: Unremarkable.? ADRENAL GLANDS: Unremarkable.? KIDNEYS AND URETERS: The kidneys are normal in size, shape, and attenuation. No hydronephrosis, hydroureter, or calculi seen. No perinephric stranding. ? BLADDER: Unremarkable.? GASTROINTESTINAL TRACT: The stomach is nondistended and appears unremarkable. There is anastomotic suture line involving segments of small bowel loop in the midabdomen. There are multiple dilated small bowel loops with air-fluid level extending to the right midabdomen quadrant on axial image 46/3 where a second suture line is noted. Beyond this line there appears to be normal caliber small bowel loops. This may represent the site of narrowing. There is postsurgical mesenteric edema and scarring in this region. There is scattered diverticuli seen throughout the colon without any diverticulitis. No free air or free fluid seen. ABDOMINAL WALL: Postsurgical changes are seen along the anterior midline abdominal wall from surgical intervention. There is no evidence of hernia.? LYMPH NODES: Normal. VASCULAR: Unremarkable. PELVIC VISCERA: The uterus is likely surgically removed. No adnexal mass or free fluid seen. No abnormal pelvic lymph nodes.? OSSEOUS STRUCTURES: No lytic or sclerotic process seen.? Discharge Plan Discharge Clinical Impression: Bacteremia, Acute UTI Abdominal pain Qualifiers: Abdominal location: lower abdomen, unspecified Qualified Code(s): R10.30 - Lower abdominal pain, unspecified Patient Disposition: Admitted As Inpatient [facility] Past Medical History Medical History Arthritis Diabetes Osteoporosis Pelvic cancer Surgical History History of colon resection Hx of cholecystectomy Social History Social History Alcohol intake: never Patient Tobacco Use Status: Never used Tobacco Use of substances other than those prescribed or required for medical reasons: No Advance Directives: No Advance Directives Information Provided: No
[2021-05-03 18:02] LABS: WBC Urine 0 /HPF (0-4)
[2021-05-03 18:03] LABS: Bacteria Urine 1+ /LPF
[2021-05-03 18:30] LABS: MANUAL DIFF FLAG NO
[2021-05-03] MEDS: ondansetron HCL 4 MG/2 ML VIAL IVPUSH (18:32)
[2021-05-03] MEDS: Morphine Sulfate 2 MG/ML CARTRIDGE IVPUSH (18:32)
[2021-05-03 18:37] LABS: Appearance Urine HAZY; Color Urine YELLOW; Glucose Urine UA NEG (NEG); Leukocyte Esterase Urine NEG (NEG); Nitrite Urine POS (NEG); Specific Gravity - Urine 1.025 (1.005-1.025); UACC Culture Trigger YES; Urine Blood 3+ (NEG); Urine Ketones NEG (NEG); Urine Protein 1+ MG/DL (NEG-TRACE)
--- NOTE | 2021-05-03 18:37 | PC.NURSE ---
patient a&ox3, c/o abd pain 03/27, labs drawn, pt medicated for nausea and pain, will continue to monitor.
[2021-05-03 18:42] LABS: Basophils Absolute Auto 0.1 X10*3/uL (0.0-0.2); Basophils Percent Auto 0.3 % (0-2); Eosinophils Absolute Auto 0.1 X10*3/uL (0.0-0.4); Eosinophils Percent Auto 0.5 % (0-4); Hematocrit 27.2 % (37-47); Hemoglobin 8.6 g/dl (12.0-16.0); Imm Gran Abs Auto 0.11 X10*3/uL (0.00-0.03); Imm Gran Pct Auto 0.6 % (0.0-0.4); Lymphocytes Absolute Auto 3.8 X10*3/uL (1.2-4.9); Lymphocytes Percent Auto 19.6 % (20-40); Mean Corpuscular HGB Conc 31.6 g/dl (31.0-35.0); Mean Corpuscular Volume 72.7 fL (80-98); Mean Platelet Volume 10.1 fL (9.4-12.3); Monocytes Absolute Auto 1.2 X10*3/uL (0.1-1.2); Monocytes Percent Auto 6.3 % (2-11); Neutrophils Percent Auto 72.7 % (45-73); Platelet Count 528 X10*3/uL (160-400); Red Blood Count 3.74 X10*6/uL (4.20-5.50); Red Cell Distribution Width 16.3 % (11.0-16.0); White Blood Count 19.3 X10*3/uL (4.8-10.8)
[2021-05-03 18:46] LABS: Lactic Acid 1.1 mmol/L (0.5-2.0)
[2021-05-03 18:50] LABS: Alanine Aminotransferase 14 U/L (0-31); Albumin Level 3.3 g/dL (3.5-5.0); Alkaline Phosphatase 107 U/L (39-117); Anion Gap 10 (12-20); Aspartate Amino Transferase 13 U/L (5-31); Bilirubin Total 0.3 mg/dL (0.0-1.0); Blood Urea Nitrogen 10 mg/dL (9-16); Calcium 8.5 mg/dL (8.4-10.2); Carbon Dioxide 25 mmol/L (22-29); Chloride 103 mmol/L (96-108); Creatinine Clr Calc Pharmacy 75.7; Estimated Glomerular Filt Rate > 60; Glucose Random 134 mg/dL (60-115); Potassium 4.1 mmol/L (3.3-5.1); Sodium 134 mmol/L (135-145); Total Protein 7.3 g/dL (6.5-8.0)
[2021-05-03 18:50] LABS: Bacteria Urine 1+ /LPF; Squamous Epithelial Cell Urine 1+ /LPF; WBC Urine 0 /HPF (0-4)
[2021-05-03] MEDS: levoFLOXacin/D5W 500 MG/100 ML PIGGYBACK 100 MG IV (19:45)
[2021-05-03] MEDS: 0.9 % Sodium Chloride 1,000 ML 999 ML IV (19:45)
[2021-05-03 19:50] VITALS: BP 110/37; PULSE 100; RESP 18; TEMP 37.3; O2SAT 98
--- NOTE | 2021-05-03 19:53 | PC.NURSE ---
patient a&ox3, vss, pt medicated per order, will continue to monitor.
[2021-05-03 20:34] LABS: COVID-19 Test Negative (Negative); IDNOW Serial# 9DD0AD1C
--- NOTE | 2021-05-03 20:46 | PHA.MEDREC ---
Pharmacy Consult ? Medication Reconciliation Pharmacy has completed the medication reconciliation.
--- NOTE | 2021-05-03 20:46 | HE.PHANOTE ---
Addendum entered by Karolina Burton, [facility] 05/04/21 14:41: sodium chloride 92 MEQ/L (not 98 meq/L) Original Note: RE: Patient Home TPN Patient IM receives lifelong 3-1 TPN s/p colon resection from [facility]. They deliver 7 bags every Friday to be infused via a specialized pump over 20 hours each day. Prior to her arrival in the ED, her stopped her TPN. I noted about 75% of the bag remaining. Since her arrival, she is receiving IV fluid therapy and IV antibiotics from the only access available, and therefore the TPN has stopped. I discussed this with the provider and it was determined that she will not be getting the rest of her 05/03 TPN tonight. Pharmacy will contact the infusion center to determine whether the specific TPN can be acquired and delivered. Of note, the is more than happy to bring in the TPN daily during the patient's admission. Brianna (Contact from [facility]): [phone] [facility]: [phone] Kwadwo (daughter): [phone] : [phone] TPN 3-1: TOTAL VOLUME: 1660ML, VOLUME TO BE INFUSED: 1560ML OVER 20 HOURS ONCE EVERY 24 HOURS VIA CURLIN PUMP Base Formula Amount/day AMOUNT/LITER Dextrose 70% 156.002 gm 100.001 gm travasol 10% 70.000 gm 44.872 gm SMOFlipid 20% 45.000 gm 28.846 gm Water for Inj 318.940 ml 240.449 ml Electrolytes MGSO4 22.005 MEQ 14.106 meq NACL 145 MEQ 98.949 meq CA GLUCONATE 7.998 MEQ 5.127 meq KCL 45.000 MEQ 28.846 meq Na Acetate 15 meq 9.615 meq Na Phos 9.990 mM 6.404 nM Tralament 1 ml 0.641 ml Admixture contains 1560ml plus 100 ml overfill. Osmolarity: 1291.5 mOsm/l Thanks Oxana De Jesus Pharm.D
--- NOTE | 2021-05-03 21:19 | PC.NURSE ---
ivf continue to run slowly.
[2021-05-03 21:21] VITALS: BP 114/42; PULSE 107; RESP 18; TEMP 37.2; O2SAT 98
--- NOTE | 2021-05-03 21:53 | PC.NURSE ---
patient was not tolerating NG tube and pulled it out, hospitalist was at bedside immediately after patient pulled out ng tube and stated that he will hold off on placing another ng tube and will cancel the order.
[2021-05-03] MEDS: Lidocaine HCl 4 % Laryng-O-Jet 4 ML 1 APPL TOPICAL (22:01)
--- NOTE | 2021-05-03 22:04 | PC.NURSE ---
per hospitalist pt does not need a diaz and he will dc the order for the diaz and ng tube
--- NOTE | 2021-05-03 22:14 | PM.IMHP ---
History of Present Illness Date of Service: 05/03/21 Chief Complaint: Abdominal pain 66-year-old female with a past medical history of diabetes, history of ovarian on chemo; recent presentation to [facility] for hematuria status post cystoscopy on last Friday; has been having feeding difficulties, reduced oral intake; patient is on TPN via midline [facility]; plan for abdominal surgery; presented today with a chief complaint abdominal pain Patient reports that she has been having abdominal discomfort/pain over past couple days; associated nausea; denies any diarrhea; reports that she is passing gas; denies any vomiting. Denies any fever chills cough. Denies any chest pain palpitations lightheadedness or dizziness. Complains of burning while urinating Review of all other systems is negative except mentioned above ER course: Per ER team patient exam is mildly tender diffusely; CT abdomen showed concerns for possible obstruction; ER team discussed with Dr. mahmood from Urology who mentioned admit to medicine service be evaluated in the morning; also spoke muscle from General surgery who mentioned the patient is probably non recommended admission to Medicine service conservative management. ER team tried to place NG tube on the patient patient did not tolerate it and does not vomited anymore. Patient was also reportedly having bacteremia ER team also tried to transfer the patient to [facility] given patient had all the procedures done at [facility]; [facility] reported now hospital day available. Subsequently admitted to the medicine team. COUNTS INCLUDE 234 BEDS AT THE [facility] Medical History (Updated 05/03/21 @ 22:15 by Jose J Rai MD) Arthritis Diabetes Osteoporosis Pelvic cancer Surgical History History of colon resection Hx of cholecystectomy Social History Alcohol intake: never Patient Tobacco Use Status: Never used Tobacco Use of substances other than those prescribed or required for medical reasons: No Advance Directives: No Advance Directives Information Provided: No Meds Allergies Allergy/AdvReac Type Severity Reaction Status Date / Time Iodinated Contrast Media Allergy Severe DIFF.BREATH Verified 05/03/21 16:31 [IV Dye, Iodine Containing] ING Penicillins AdvReac Mild PASSED OUT Verified 05/03/21 16:31 Environmental Allergy Mild ITCHY Uncoded 05/04/20 16:02 EYES/RUNNY NOSE DYE Allergy Unknown Unknown Uncoded 05/03/21 16:31 PENICILLIN G Allergy Unknown Unknown Uncoded 05/03/21 16:31 Active Medications: Current Medications Generic Name Dose Route Start Last Admin Trade Name Sandhya PRN Reason Stop Dose Admin Dextrose 25 gm 05/03/21 21:21 Dextrose 50 % 25 Gm/50 Ml Vial IVPUSH Q15M PRN per Hypoglycemia Standing Ord. Protocol Glucose 15 gm 05/03/21 21:21 Glucose Gel 15 Gm Gel..Gram. PO Q15M PRN per Hypoglycemia Standing Ord. Protocol Dextrose/Sodium Chloride 1,000 mls @ 100 mls/hr 05/03/21 21:30 D51/2ns IVCONT .Q10H MARY Levofloxacin 500 mg in 100 mls @ 100 mls/hr 05/04/21 20:00 Levaquin IV Q24H MARY Insulin Human Lispro 0 unit 05/04/21 07:30 Insulin Lispro 100 Unit/Ml 3 Ml Vial SUBCUT QIDACHS [facility] Protocol Melatonin 6 mg 05/03/21 21:21 Melatonin 3 Mg Tablet PO BEDTIME PRN Insomnia Pharmacy Consult 1 each 05/03/21 19:31 Consult Rx Perform Med Rec MISCELLANE ONCE PRN Consult order Sodium Chloride 3 ml 05/04/21 00:00 0.9 % Sodium Chloride Flush 3 Ml Syringe IVFLUSH QSHIFT [facility] Home Medications Medication Instructions Recorded Confirmed Last Taken Type fluticasone propionate 50 1 spray INTRANASAL DAILY PRN 05/03/21 05/03/21 Unknown History mcg/actuation nasal spray,suspension melatonin 5 mg tablet 1 tab PO BEDTIME 05/03/21 05/03/21 05/02/21 History metformin 1,000 mg tablet 1 tab PO BID 05/03/21 05/03/21 05/03/21 History sennosides 8.6 mg-docusate sodium 2 tab PO DAILY PRN 05/03/21 05/03/21 Unknown History 50 mg tablet (Senexon-S) Physical Exam Vital Signs and Narrative: Vital Signs: Last Vital Signs Temp 99.1 F 05/03/21 19:50 Pulse 100 05/03/21 19:50 Resp 18 05/03/21 19:50 BP 110/37 L 05/03/21 19:50 Pulse Ox 98 05/03/21 19:50 Body Mass Index 19.4 Gen: Appears be in no acute distress HEENT: NCAT, Moist mucosa. Pulmonary: Vesicular breath sounds, fair air entry CVS: Normal S1-S2 Abdomen: BS+, Soft, Nontender; midline abdominal scar noted; mildly tender diffusely; no guarding no rigidity Extremities: Warm well perfused Neuro: Alert and awake. Results Labs CBC and Chem 7: 05/03/21 18:22 05/03/21 18:22 Labs: Laboratory Results - last 24 hr 05/03/21 05/03/21 05/03/21 17:43 18:22 18:22 MCV 72.7 L MCH 23.0 L MCHC 31.6 RDW 16.3 H Plt Count 528 H D MPV 10.1 Immature Gran % (Auto) 0.6 H Neut % (Auto) 72.7 Lymph % (Auto) 19.6 L [place] % (Auto) 6.3 Eos % (Auto) 0.5 Baso % (Auto) 0.3 Lymph # (Auto) 3.8 [place] # (Auto) 1.2 Eos # (Auto) 0.1 Baso # (Auto) 0.1 Abs Immat Gran (auto) 0.11 H Absolute Neuts (auto) 14.0 H Absolute Nucleated RBC 0.000 Nucleated RBC % (auto) 0.0 Anion Gap 10 L Estim Creat Clear Calc 75.7 Estimated GFR > 60 Random Glucose 134 H Lactic Acid Calcium 8.5 Total Bilirubin 0.3 AST 13 ALT 14 Alkaline Phosphatase 107 Total Protein 7.3 Albumin 3.3 L Urine Color YELLOW Urine Appearance CLEAR Urine pH 6.0 Ur Specific [place] 1.020 Urine Protein 1+ H Urine Glucose (UA) NEG Urine Ketones NEG Urine Blood 2+ H Urine Nitrite POS H Ur Leukocyte Esterase NEG Urine RBC 5-9 H Urine WBC 0 Ur Squamous Epith Cells NONE Urine Bacteria 1+ Urine Yeast COVID-19 ([facility]) COVID-19 Clin Com 05/03/21 05/03/21 05/03/21 18:22 18:23 20:11 MCV MCH MCHC RDW Plt Count MPV Immature Gran % (Auto) Neut % (Auto) Lymph % (Auto) [place] % (Auto) Eos % (Auto) Baso % (Auto) Lymph # (Auto) [place] # (Auto) Eos # (Auto) Baso # (Auto) Abs Immat Gran (auto) Absolute Neuts (auto) Absolute Nucleated RBC Nucleated RBC % (auto) Anion Gap Estim Creat Clear Calc Estimated GFR Random Glucose Lactic Acid 1.1 Calcium Total Bilirubin AST ALT Alkaline Phosphatase Total Protein Albumin Urine Color YELLOW Urine Appearance HAZY Urine pH 6.0 Ur Specific [place] 1.025 Urine Protein 1+ H Urine Glucose (UA) NEG Urine Ketones NEG Urine Blood 3+ H Urine Nitrite POS H Ur Leukocyte Esterase NEG Urine RBC 15-29 H Urine WBC 0 Ur Squamous Epith Cells 1+ Urine Bacteria 1+ Urine Yeast TRACE COVID-19 ([facility]) Negative COVID-19 Clin Com See Note Imaging Radiologist's Impressions: Impressions Abdomen/Pelvis CT 05/03/21 18:05 IMPRESSION: There are 2 areas of anastomotic suture line involving the small bowel loops in midabdomen. At one of the midline suture line there are several moderately dilated small bowel loops with moderate to large air-fluid level extending to the second suture level on axial image 46/3. This is likely cause of obstruction suspected. It could be secondary to adhesions or stricture or narrowing at the suture site. The small bowel loops beyond this segment are normal. Colonic diverticulosis without diverticulitis. No free air or free fluid. Multiple new nodules seen in the right lower lobe worrisome for metastatic disease. Assessment and Plan (1) Abdominal pain: Qualifiers: Abdominal location: lower abdomen, unspecified Qualified Code(s): R10.30 - Lower abdominal pain, unspecified Status: Acute (2) Bacteremia: Status: Acute (3) Acute UTI: Status: Acute (4) Diabetes: Status: Acute (5) Pelvic cancer: Status: Acute (6) On total parenteral nutrition: Status: Acute 66-year-old female with a past medical history of diabetes, history of ovarian on chemo; recent presentation to [facility] for hematuria status post cystoscopy on last Friday; has been having feeding difficulties, reduced oral intake; patient is on TPN via midline [facility]; plan for abdominal surgery; presented today with a chief complaint abdominal pain. CT abdomen showed possible obstruction Intestinal obstruction: Patient having nausea. Denies any vomiting. Could not tolerate NG tube. Supportive care. General surgery aware of the patient. Patient reports that she is passing gas. NPO for now. Gentle IV fluids. UTI/bacteremia: Continue Levaquin. Will defer to the a.m. team to obtain records from [facility]. Urology consult aware of the patient Id consult. Patient currently denies any hematuria Diabetes: Insulin sliding scale Diet: Patient on TPN. Nutrition consult. DVT prophylaxis SCD boots (hold pharmacologic agent given concerns repeat hematuria) Code status: Full Code pts Daughter -JIM-> ph [id number] Quality Stroke Does the patient have a stroke diagnosis?: No VTE Prior VTE?: No VTE Risk Level:: Medical - moderate - high VTE Device Contraindication: N/A - Device Ordered VTE Drug Contraindication: Treatment Not Indicated
[2021-05-03] MEDS: Dextrose 5 % and 0.45 % NaCl 1,000 ML 100 ML IVCONT (22:16)
--- NOTE | 2021-05-03 22:18 | PC.NURSE ---
patient a&ox3, tour escort applied sinus tach, ivf running per order, as previously stated pt will not have a repeat NG tube or a diaz cath as she is able to make her needs known to toilet- okd by hospitalist, will continue to monitor.
--- NOTE | 2021-05-04 01:36 | PC.NURSE ---
pt is sleeping at this time. no sign of distress.
[2021-05-04 01:50] VITALS: BP 102/49; PULSE 90; RESP 16; TEMP 37.1; O2SAT 96
--- NOTE | 2021-05-04 03:18 | PC.NURSE ---
pt a&O, denies any sob or chest pain. pt is resting at this time. pt place on bedpan and yancy care completed. pt denies any distress at this time. Will continue to monitor.
[2021-05-04 05:08] VITALS: BP 106/64; PULSE 84; RESP 16; TEMP 36.5; O2SAT 98
--- NOTE | 2021-05-04 05:15 | PC.NURSE ---
pt was able to void several time during the course of the evening without any distress. purewick in place and functioning.
[2021-05-04 06:27] LABS: MANUAL DIFF FLAG NO
[2021-05-04 06:32] LABS: Basophils Percent Auto 0.2 % (0-2); Eosinophils Absolute Auto 0.1 X10*3/uL (0.0-0.4); Eosinophils Percent Auto 0.5 % (0-4); Hematocrit 25.9 % (37-47); Imm Gran Abs Auto 0.05 X10*3/uL (0.00-0.03); Imm Gran Pct Auto 0.4 % (0.0-0.4); Lymphocytes Absolute Auto 3.1 X10*3/uL (1.2-4.9); Lymphocytes Percent Auto 27.6 % (20-40); Mean Corpuscular HGB Conc 30.9 g/dl (31.0-35.0); Mean Corpuscular Hemoglobin 22.5 pg (27.0-33.0); Mean Corpuscular Volume 72.8 fL (80-98); Mean Platelet Volume 9.8 fL (9.4-12.3); Monocytes Absolute Auto 1.1 X10*3/uL (0.1-1.2); Neutrophils Absolute Auto 6.9 X10*3/uL (2.0-8.3); Neutrophils Percent Auto 61.3 % (45-73); Platelet Count 493 X10*3/uL (160-400); Red Blood Count 3.56 X10*6/uL (4.20-5.50); White Blood Count 11.3 X10*3/uL (4.8-10.8)
[2021-05-04 06:55] LABS: Anion Gap 9 (12-20); Blood Urea Nitrogen 6 mg/dL (9-16); Calcium 8.4 mg/dL (8.4-10.2); Carbon Dioxide 26 mmol/L (22-29); Chloride 103 mmol/L (96-108); Creatinine Clr Calc Pharmacy 71.6; Estimated Glomerular Filt Rate > 60; Glucose Random 167 mg/dL (60-115); Potassium 4.1 mmol/L (3.3-5.1); Sodium 134 mmol/L (135-145)
[2021-05-04 06:59] VITALS: BP 112/61; PULSE 81; RESP 14; TEMP 37.1; O2SAT 98
[2021-05-04 07:08] LABS: Glucose, Whole Blood 166 mg/dL (60-115)
--- NOTE | 2021-05-04 07:13 | PM.CNGS ---
History of Present Illness Consult details Consult date: 05/04/21 Reason for consult: abdominal pain Narrative: 66-year-old female patient presenting with complaints of pelvic pain found on CT to have dilated small bowel loops suggestive of a small-bowel obstruction. The patient's past medical history is extensive and includes a prior history of ovarian cancer treated in 2013 with chemotherapy. She apparently developed a recurrence and was due to start chemotherapy again however because of her poor nutrition she was started on TPN she has been treated at both [facility] and [place], the records of which are not available at the time of this dictation. Patient apparently underwent a urologic procedure, apparently a cystoscopy, for possible bladder tumor several days ago at [facility]. This was for evaluation of blood in her urine. No records are available as to the operative findings or pathologic results. She subsequently developed increased pelvic pain and return to the emergency department here at [facility]. CT of the abdomen and pelvis reveals several bowel anastomoses with staple lines evident. There are loops of dilated bowel suggestive of a bowel obstruction however there is also apparent thickened bowel wall. A CT of the in September 2020 ?revealed 2 oval soft tissue lesions within the mesentery appearance which could represent a mesenteric adenitis of these lesions are nonspecific. In consideration of the stated history of ovarian cancer, the appearance cannot be excluded as being registration representative of metastatic disease.? Patient does report fever and chills was noted to have a markedly elevated WBC. She denied nausea, vomiting, diarrhea, or constipation. She is having difficulty passing urine with reports of continued hematuria. She is uncertain why she will need additional chemotherapy. Review of Systems Review of Systems: Yes all other systems are reviewed and are negative Cardiovascular: Cardiovascular: Denies chest pain, Denies rapid heart rate and Denies irregular heart rhythm Gastrointestinal: Gastrointestinal: Reports as per HPI Musculoskeletal: Musculoskeletal: Reports no additional musculoskeletal complaints Hematologic/Lymphatic: Hematologic/Lymphatic: Denies lymphadenopathy PMFSH Past Medical History Medical History Arthritis Diabetes Osteoporosis Pelvic cancer Surgical History Surgical History History of colon resection Hx of cholecystectomy Social History Social History Alcohol intake: never Patient Tobacco Use Status: Never used Tobacco Use of substances other than those prescribed or required for medical reasons: No Advance Directives: No Advance Directives Information Provided: No Meds Allergies Allergy/AdvReac Type Severity Reaction Status Date / Time Iodinated Contrast Media Allergy Severe DIFF.BREATH Verified 05/03/21 16:31 [IV Dye, Iodine Containing] ING Penicillins AdvReac Mild PASSED OUT Verified 05/03/21 16:31 Environmental Allergy Mild ITCHY Uncoded 05/04/20 16:02 EYES/RUNNY NOSE DYE Allergy Unknown Unknown Uncoded 05/03/21 16:31 PENICILLIN G Allergy Unknown Unknown Uncoded 05/03/21 16:31 Active Medications: Current Medications Generic Name Dose Route Start Last Admin Trade Name Freq PRN Reason Stop Dose Admin Dextrose 25 gm 05/03/21 21:21 Dextrose 50 % 25 Gm/50 Ml Vial IVPUSH Q15M PRN per Hypoglycemia Standing Ord. Protocol Glucose 15 gm 05/03/21 21:21 Glucose Gel 15 Gm Gel..Gram. PO Q15M PRN per Hypoglycemia Standing Ord. Protocol Dextrose/Sodium Chloride 1,000 mls @ 100 mls/hr 05/03/21 21:30 05/03/21 22:16 D51/2ns IVCONT 100 mls/hr .Q10H MARY Administration Levofloxacin 500 mg in 100 mls @ 100 mls/hr 05/04/21 20:00 Levaquin IV Q24H [facility] Insulin Human Lispro 0 unit 05/04/21 07:30 05/04/21 07:03 Insulin Lispro 100 Unit/Ml 3 Ml Vial SUBCUT Not Given QIDACHS [facility] Protocol Melatonin 6 mg 05/03/21 21:21 Melatonin 3 Mg Tablet PO BEDTIME PRN Insomnia Pharmacy Consult 1 each 05/03/21 19:31 Consult Rx Perform Med Rec MISCELLANE ONCE PRN Consult order Sodium Chloride 3 ml 05/04/21 00:00 05/04/21 07:03 0.9 % Sodium Chloride Flush 3 Ml Syringe [facility]FLUSH [facility] Medications Medication Instructions Recorded Confirmed Last Taken Type fluticasone propionate 50 1 spray INTRANASAL DAILY PRN 05/03/21 05/03/21 Unknown History mcg/actuation nasal spray,suspension melatonin 5 mg tablet 1 tab PO BEDTIME 05/03/21 05/03/21 05/02/21 History metformin 1,000 mg tablet 1 tab PO BID 05/03/21 05/03/21 05/03/21 History sennosides 8.6 mg-docusate sodium 2 tab PO DAILY PRN 05/03/21 05/03/21 Unknown History 50 mg tablet (Senexon-S) Physical Exam Vital Signs: Vital Signs: Last Vital Signs Temp 98.7 F 05/04/21 06:59 Pulse 81 05/04/21 06:59 Resp 14 05/04/21 06:59 BP 112/61 05/04/21 06:59 Pulse Ox 98 05/04/21 06:59 Body Mass Index 19.4 Const: General: no acute distress and alert Nutritional Appearance: thin Orientation/consciousness: patient oriented x3 Limitations: no limitations HENMT: Head: Yes normocephalic and Yes atraumatic Ears: hearing grossly normal bilaterally Eyes: Sclerae: sclerae normal EOM: EOMs intact bilaterally Resp: Effort & Inspection: normal respiratory effort, no audible wheezes and no respiratory distress Auscultation: clear to auscultation bilaterally GI: Palpation (GI): Soft to palpation, Tenderness to palpation present (GI) in the LLQ, no guarding and not rigid Auscultation: Absent bowel sounds Rectal Exam - Female: deferred Skin: General skin exam: no rashes or lesions noted Neuro: General: patient oriented x3 Extrem: General: Yes no clubbing, cyanosis or edema Results Labs Result diagrams: 05/04/21 06:17 05/04/21 06:17 Labs: Abnormal lab results 05/03/21 05/03/21 05/03/21 Range/Units 17:43 18:22 18:22 WBC 19.3 H (4.8-10.8) X10*3/uL RBC 3.74 L (4.20-5.50) X10*6/uL Hgb 8.6 L (12.0-16.0) g/dl Hct 27.2 L D (37-47) % MCV 72.7 L (80-98) fL MCH 23.0 L (27.0-33.0) pg MCHC (31.0-35.0) g/dl RDW 16.3 H (11.0-16.0) % Plt Count 528 H D (160-400) X10*3/uL Immature Gran % (Auto) 0.6 H (0.0-0.4) % Lymph % (Auto) 19.6 L (20-40) % Abs Immat Gran (auto) 0.11 H (0.00-0.03) X10*3/uL Absolute Neuts (auto) 14.0 H (2.0-8.3) X10*3/uL Sodium 134 L (135-145) mmol/L Anion Gap 10 L (12-20) BUN (9-16) mg/dL POC Glucose (60-115) mg/dL Random Glucose 134 H (60-115) mg/dL Albumin 3.3 L (3.5-5.0) g/dL Urine Protein 1+ H (NEG-TRACE) MG/DL Urine Blood 2+ H (NEG) Urine Nitrite POS H (NEG) Urine RBC 5-9 H (0) /HPF 05/03/21 05/04/21 05/04/21 Range/Units 18:23 06:17 06:17 WBC 11.3 H (4.8-10.8) X10*3/uL RBC 3.56 L (4.20-5.50) X10*6/uL Hgb 8.0 L (12.0-16.0) g/dl Hct 25.9 L (37-47) % MCV 72.8 L (80-98) fL MCH 22.5 L (27.0-33.0) pg MCHC 30.9 L (31.0-35.0) g/dl RDW (11.0-16.0) % Plt Count 493 H (160-400) X10*3/uL Immature Gran % (Auto) (0.0-0.4) % Lymph % (Auto) (20-40) % Abs Immat Gran (auto) 0.05 H (0.00-0.03) X10*3/uL Absolute Neuts (auto) (2.0-8.3) X10*3/uL Sodium 134 L (135-145) mmol/L Anion Gap 9 L (12-20) BUN 6 L (9-16) mg/dL POC Glucose (60-115) mg/dL Random Glucose 167 H (60-115) mg/dL Albumin (3.5-5.0) g/dL Urine Protein 1+ H (NEG-TRACE) MG/DL Urine Blood 3+ H (NEG) Urine Nitrite POS H (NEG) Urine RBC 15-29 H (0) /HPF 05/04/21 Range/Units 07:02 WBC (4.8-10.8) X10*3/uL RBC (4.20-5.50) X10*6/uL Hgb (12.0-16.0) g/dl Hct (37-47) % MCV (80-98) fL MCH (27.0-33.0) pg MCHC (31.0-35.0) g/dl RDW (11.0-16.0) % Plt Count (160-400) X10*3/uL Immature Gran % (Auto) (0.0-0.4) % Lymph % (Auto) (20-40) % Abs Immat Gran (auto) (0.00-0.03) X10*3/uL Absolute Neuts (auto) (2.0-8.3) X10*3/uL Sodium (135-145) mmol/L Anion Gap (12-20) BUN (9-16) mg/dL POC Glucose 166 H (60-115) mg/dL Random Glucose (60-115) mg/dL Albumin (3.5-5.0) g/dL Urine Protein (NEG-TRACE) MG/DL Urine Blood (NEG) Urine Nitrite (NEG) Urine RBC (0) /HPF Short CBC 05/03/21 05/04/21 Range/Units 18:22 06:17 WBC 19.3 H 11.3 H (4.8-10.8) X10*3/uL Hgb 8.6 L 8.0 L (12.0-16.0) g/dl Hct 27.2 L D 25.9 L (37-47) % Plt Count 528 H D 493 H (160-400) X10*3/uL BMP 05/03/21 05/04/21 18:22 06:17 Sodium 134 L 134 L Potassium 4.1 4.1 Chloride 103 103 Carbon Dioxide 25 26 BUN 10 6 L Creatinine 0.52 0.55 Calcium 8.5 8.4 Liver Function 05/03/21 Range/Units 18:22 Total Bilirubin 0.3 (0.0-1.0) mg/dL AST 13 (5-31) U/L ALT 14 (0-31) U/L Alkaline Phosphatase 107 (39-117) U/L Albumin 3.3 L (3.5-5.0) g/dL Urine 05/03/21 05/03/21 Range/Units 17:43 18:23 Urine Color YELLOW YELLOW Urine Appearance CLEAR HAZY Urine pH 6.0 6.0 (5.0-8.0) Ur Specific [place] 1.020 1.025 (1.005-1.025) Urine Protein 1+ H 1+ H (NEG-TRACE) MG/DL Urine Glucose (UA) NEG NEG (NEG) MG/DL All other labs normal. Assessment and Plan (1) Pelvic cancer: Status: Acute (2) Abdominal pain: Qualifiers: Abdominal location: lower abdomen, unspecified Qualified Code(s): R10.30 - Lower abdominal pain, unspecified Status: Acute 66-year-old female patient presenting with abdominal/pelvic pain found to have dilated loops of small bowel. Patient has a prior history of ovarian cancer and apparently is being evaluated for a recurrent tumor or bladder tumor resulting in hematuria. Patient's previous workup apparently was performed at [facility] and recently underwent surgery at this institution as well. I am concerned about possibility of carcinomatosis given the appearance on CT. This would not be amenable to surgical intervention. Will await medical records. Ideally the patient should be transferred to [facility] for further evaluation and treatment. Procedures Date of Service Date of Service: 05/04/21
[2021-05-04] MEDS: Dextrose 5 % and 0.45 % NaCl 1,000 ML 100 ML IVCONT (07:23)
--- NOTE | 2021-05-04 10:11 | MHC.CM.PN ---
Attempted to meet with patient in regards to discharge planning. Patient currently sleeping. Spoke with patient's /HCP Abdoul via telephone at [phone] with the help of the day care teacher. Patient was discharged from [facility] in February with [facility] and TPN. Patient is active with [facility] for correction and [facility] for TPN. Patient ambulates with a cane. PCP verified. Copy of HCP verified to be on file. IMM explained and left bedside. T/W discussed Dr Alfonso's recommendation to transfer patient back to [facility]. Abdoul is not happy with this plan because he feels like they didn't fix anything. Carolina Serna, vocational case manager will speak to Dr Smiley during rounds about this. Continue to monitor for d/c needs.
[2021-05-04 11:07] LABS: Magnesium 1.6 mg/dL (1.6-2.6); Phosphorus 4.3 mg/dL (2.7-4.5); Triglycerides 140 mg/dL
[2021-05-04 11:25] VITALS: BMI 19.4
--- NOTE | 2021-05-04 11:29 | MHC.CLN ---
RE: CONSULT PT IS ON [facility] TPN R/T COLON RESECTION RECOMMEND D10AA4.25 AT 65ML/HR WITH 10ML OF 20% LIPIDS (X24HRS) TO PROVIDE 1276 TOTAL KCALS (28KCALS/KG), 66G PROTEIN (1.5G/KG) DISCUSSED WITH PHARMACY REPLETE LYTES NEEDED, MONITOR TRIGS SEE ALSO CLINICAL NUTRITION ASSESSMENT
[2021-05-04 11:57] LABS: Glucose, Whole Blood 150 mg/dL (60-115)
[2021-05-04 13:39] VITALS: BP 103/33; PULSE 79; RESP 15; TEMP 36.8; O2SAT 98
--- NOTE | 2021-05-04 13:39 | HO.PM.IMPN ---
Subjective Subjective Date of Service: 05/04/21 Interval History: presented with abdominal pain and hematuria which has since resolved Cardiovascular Cardiovascular: Reports no additional cardiovascular complaints Respiratory Respiratory: Reports no additional respiratory complaints Physical Exam Vital Signs: Vital Signs: Last Vital Signs Temp 98.7 F 05/04/21 06:59 Pulse 81 05/04/21 06:59 Resp 14 05/04/21 06:59 BP 112/61 05/04/21 06:59 Pulse Ox 98 05/04/21 06:59 Body Mass Index 19.4 General: AO X 3, no acute distress, frail appearing Resp: CTA bilateral, no accessory muscles used CVS: S1,S2,RRR GI: soft, non tender, non distended, decreased bowel sounds Neuro: motor grossly intact, alert Psych: appropriate affect, appropriate insight Objective Data Active Medications Dextrose (Dextrose 50 % 25 Gm/50 Ml Vial) 25 gm IVPUSH Q15M PRN; Protocol PRN Reason: per Hypoglycemia Standing Ord. Glucose (Glucose Gel 15 Gm Gel..Gram.) 15 gm PO Q15M PRN; Protocol PRN Reason: per Hypoglycemia Standing Ord. Dextrose/Sodium Chloride (D51/2ns) 1,000 mls @ 100 mls/hr IVCONT .Q10H [facility] Last Admin: 05/04/21 07:23 Dose: 100 mls/hr Documented by: MISA Levofloxacin (Levaquin) 500 mg in 100 mls @ 100 mls/hr IV Q24H MARY Insulin Human Lispro (Insulin Lispro 100 Unit/Ml 3 Ml Vial) 0 unit SUBCUT QIDACHS [facility]; Protocol Last Admin: 05/04/21 12:57 Dose: Not Given Documented by: [place] Non-Admin Reason: NPO Melatonin (Melatonin 3 Mg Tablet) 6 mg PO BEDTIME PRN PRN Reason: Insomnia Pharmacy Consult (Consult Rx Perform Med Rec) 1 each MISCELLANE ONCE PRN PRN Reason: Consult order Sodium Chloride (0.9 % Sodium Chloride Flush 3 Ml Syringe) 3 ml IVFLUSH QSHIFT [facility] Last Admin: 05/04/21 07:03 Dose: Not Given Documented by: MISA Non-Admin Reason: IV Running Labs CBC & Chem 7: 05/04/21 06:17 05/04/21 06:17 Labs: Laboratory Results - last 24 hr 05/03/21 05/03/21 05/03/21 17:43 18:22 18:22 MCV 72.7 L MCH 23.0 L MCHC 31.6 RDW 16.3 H Plt Count 528 H D MPV 10.1 Immature Gran % (Auto) 0.6 H Neut % (Auto) 72.7 Lymph % (Auto) 19.6 L [place] % (Auto) 6.3 Eos % (Auto) 0.5 Baso % (Auto) 0.3 Lymph # (Auto) 3.8 [place] # (Auto) 1.2 Eos # (Auto) 0.1 Baso # (Auto) 0.1 Abs Immat Gran (auto) 0.11 H Absolute Neuts (auto) 14.0 H Absolute Nucleated RBC 0.000 Nucleated RBC % (auto) 0.0 Anion Gap 10 L Estim Creat Clear Calc 75.7 Estimated GFR > 60 POC Glucose Random Glucose 134 H Lactic Acid Calcium 8.5 Phosphorus Magnesium Total Bilirubin 0.3 AST 13 ALT 14 Alkaline Phosphatase 107 Total Protein 7.3 Albumin 3.3 L Triglycerides Urine Color YELLOW Urine Appearance CLEAR Urine pH 6.0 Ur Specific [place] 1.020 Urine Protein 1+ H Urine Glucose (UA) NEG Urine Ketones NEG Urine Blood 2+ H Urine Nitrite POS H Ur Leukocyte Esterase NEG Urine RBC 5-9 H Urine WBC 0 Ur Squamous Epith Cells NONE Urine Bacteria 1+ Urine Yeast COVID-19 ([facility]) COVID-19 Clin Com 05/03/21 05/03/21 05/03/21 18:22 18:23 20:11 MCV MCH MCHC RDW Plt Count MPV Immature Gran % (Auto) Neut % (Auto) Lymph % (Auto) [place] % (Auto) Eos % (Auto) Baso % (Auto) Lymph # (Auto) [place] # (Auto) Eos # (Auto) Baso # (Auto) Abs Immat Gran (auto) Absolute Neuts (auto) Absolute Nucleated RBC Nucleated RBC % (auto) Anion Gap Estim Creat Clear Calc Estimated GFR POC Glucose Random Glucose Lactic Acid 1.1 Calcium Phosphorus Magnesium Total Bilirubin AST ALT Alkaline Phosphatase Total Protein Albumin Triglycerides Urine Color YELLOW Urine Appearance HAZY Urine pH 6.0 Ur Specific [place] 1.025 Urine Protein 1+ H Urine Glucose (UA) NEG Urine Ketones NEG Urine Blood 3+ H Urine Nitrite POS H Ur Leukocyte Esterase NEG Urine RBC 15-29 H Urine WBC 0 Ur Squamous Epith Cells 1+ Urine Bacteria 1+ Urine Yeast TRACE COVID-19 ([facility]) Negative COVID-19 Clin Com See Note 05/04/21 05/04/21 05/04/21 06:17 06:17 07:02 MCV 72.8 L MCH 22.5 L MCHC 30.9 L RDW 16.0 Plt Count 493 H MPV 9.8 Immature Gran % (Auto) 0.4 Neut % (Auto) 61.3 Lymph % (Auto) 27.6 [place] % (Auto) 10.0 Eos % (Auto) 0.5 Baso % (Auto) 0.2 Lymph # (Auto) 3.1 [place] # (Auto) 1.1 Eos # (Auto) 0.1 Baso # (Auto) 0.0 Abs Immat Gran (auto) 0.05 H Absolute Neuts (auto) 6.9 Absolute Nucleated RBC 0.000 Nucleated RBC % (auto) 0.0 Anion Gap 9 L Estim Creat Clear Calc 71.6 Estimated GFR > 60 POC Glucose 166 H Random Glucose 167 H Lactic Acid Calcium 8.4 Phosphorus 4.3 Magnesium 1.6 Total Bilirubin AST ALT Alkaline Phosphatase Total Protein Albumin 3.0 L Triglycerides 140 Urine Color Urine Appearance Urine pH Ur Specific [place] Urine Protein Urine Glucose (UA) Urine Ketones Urine Blood Urine Nitrite Ur Leukocyte Esterase Urine RBC Urine WBC Ur Squamous Epith Cells Urine Bacteria Urine Yeast COVID-19 ([facility]) COVID-19 Clin Com 05/04/21 11:53 MCV MCH MCHC RDW Plt Count MPV Immature Gran % (Auto) Neut % (Auto) Lymph % (Auto) [place] % (Auto) Eos % (Auto) Baso % (Auto) Lymph # (Auto) [place] # (Auto) Eos # (Auto) Baso # (Auto) Abs Immat Gran (auto) Absolute Neuts (auto) Absolute Nucleated RBC Nucleated RBC % (auto) Anion Gap Estim Creat Clear Calc Estimated GFR POC Glucose 150 H Random Glucose Lactic Acid Calcium Phosphorus Magnesium Total Bilirubin AST ALT Alkaline Phosphatase Total Protein Albumin Triglycerides Urine Color Urine Appearance Urine pH Ur Specific [place] Urine Protein Urine Glucose (UA) Urine Ketones Urine Blood Urine Nitrite Ur Leukocyte Esterase Urine RBC Urine WBC Ur Squamous Epith Cells Urine Bacteria Urine Yeast COVID-19 ([facility]) COVID-19 Clin Com Microbiology Microbiology Results: Microbiology 05/03/21 17:54 Urine Culture - Preliminary Urine clean catch - Urine antoine top No growth to date. 05/03/21 18:22 Blood Culture - Preliminary Blood - Venous Assessment and Plan (1) On total parenteral nutrition: Status: Acute (2) Abdominal pain: Status: Acute (3) Acute UTI: Status: Acute (4) Bacteremia: Status: Resolved (5) Bacteremia: Status: Acute Assessment and Plan: ?66-year-old female with a past medical history of diabetes, history of ovarian on chemo; recent presentation to [facility] for hematuria status post cystoscopy on last Friday; has been having feeding difficulties, reduced oral intake; patient is on TPN via [facility]; plan for abdominal surgery; presented with a chief complaint abdominal pain.? CT abdomen showed possible obstruction SBO in setting of metastatic disease reports improvement, check KUB, will restart po diet if improved, patient on TPN for improved nutrition UTI/bacteremia:? Continue Levaquin.? Urology, Id consult. GPC bacteremia, ?significance, follow up Diabetes Insulin sliding scale DVT prophylaxis SCD boots (hold pharmacologic agent given concerns repeat hematuria) Quality Stroke Does the patient have a stroke diagnosis?: No VTE Prior VTE?: No VTE Risk Level:: Medical - moderate - high VTE Device Contraindication: N/A - Device Ordered VTE Drug Contraindication: Treatment Not Tolerated
--- NOTE | 2021-05-04 15:48 | P.CNID_ITS ---
History of Present Illness Data of Consult Service Date: 05/04/21 Requesting physician: Harish Smiley Primary Care Provider: Katalina Larson MD [facility] Reason for consult: abdominal pain Patient presents with 4/10 abdominal pain,epigastic She has no nausea or vomiting Blood culture 1/2 Gram positive cocci may be contaminant She has had UTI in past Review of Systems Review of Systems: Yes all other systems are reviewed and are negative PMFSH Past Medical History Medical History Arthritis Diabetes Osteoporosis Pelvic cancer Surgical History Surgical History History of colon resection Hx of cholecystectomy Social History Social History Household Members: Spouse Housing: House Do you presently have visiting nurse or other home services: Yes (comes every day) Alcohol intake: never Patient Tobacco Use Status: Never used Tobacco Advance Directives Date on File: 05/04/21 service: No Current occupational status: retired Meds Allergies Allergy/AdvReac Type Severity Reaction Status Date / Time Iodinated Contrast Media Allergy Severe DIFF.BREATH Verified 05/03/21 16:31 [IV Dye, Iodine Containing] ING Penicillins AdvReac Mild PASSED OUT Verified 05/03/21 16:31 Environmental Allergy Mild ITCHY Uncoded 05/04/20 16:02 EYES/RUNNY NOSE DYE Allergy Unknown Unknown Uncoded 05/03/21 16:31 PENICILLIN G Allergy Unknown Unknown Uncoded 05/03/21 16:31 Active Medications: Current Medications Dextrose (Dextrose 50 % 25 Gm/50 Ml Vial) 25 gm IVPUSH Q15M PRN; Protocol PRN Reason: per Hypoglycemia Standing Ord. Glucose (Glucose Gel 15 Gm Gel..Gram.) 15 gm PO Q15M PRN; Protocol PRN Reason: per Hypoglycemia Standing Ord. Dextrose/Sodium Chloride (D51/2ns) 1,000 mls @ 100 mls/hr IVCONT .Q10H [facility] Last Admin: 05/04/21 07:23 Dose: 100 mls/hr Documented by: Levofloxacin (Levaquin) 500 mg in 100 mls @ 100 mls/hr IV Q24H [facility] Potassium Chloride 56 meq/Sodium Chloride 184 meq/Magnesium Sulfate 28 meq/Calcium Gluconate 10 meq/Sodium Acetate 20 meq/ Sodium Phosphate 12 mmol/Multivitamins 15 ml/ Trace Metals 1.5 ml/ Amino Acids/Dextrose 1,320 mls @ 55 mls/hr IVCONT DAILY@1800 [facility] Stop: 05/05/21 17:59 Fat Emulsion Intravenous (Intralipid) 156 mls @ 13 mls/hr IVCONT DAILY@1800 [facility] Stop: 05/05/21 05:59 Insulin Human Lispro (Insulin Lispro 100 Unit/Ml 3 Ml Vial) 0 unit SUBCUT QIDACHS [facility]; Protocol Last Admin: 05/04/21 12:57 Dose: Not Given Documented by: Melatonin (Melatonin 3 Mg Tablet) 6 mg PO BEDTIME PRN PRN Reason: Insomnia Pharmacy Consult (Consult Rx Perform Med Rec) 1 each MISCELLANE ONCE PRN PRN Reason: Consult order Sodium Chloride (0.9 % Sodium Chloride Flush 3 Ml Syringe) 3 ml IVFLUSH [facility] Last Admin: 05/04/21 15:24 Dose: Not Given Documented by: Home Medications Medication Instructions Recorded Confirmed Last Taken Type fluticasone propionate 50 1 spray INTRANASAL DAILY PRN 05/03/21 05/03/21 Unknown History mcg/actuation nasal spray,suspension melatonin 5 mg tablet 1 tab PO BEDTIME 05/03/21 05/03/21 05/02/21 History metformin 1,000 mg tablet 1 tab PO BID 05/03/21 05/03/21 05/03/21 History sennosides 8.6 mg-docusate sodium 2 tab PO DAILY PRN 05/03/21 05/03/21 Unknown History 50 mg tablet (Senexon-S) Physical Exam Vital Signs: Vital Signs: Last Vital Signs Temp 98.3 F 05/04/21 13:39 Pulse 79 05/04/21 13:39 Resp 15 05/04/21 13:39 BP 103/33 L 05/04/21 13:39 Pulse Ox 98 05/04/21 13:39 Body Mass Index 19.4 Const: General: cooperative HENMT: Head: Yes normal to inspection Mouth: Normal oral and palatal mucosa present Eyes: General: appearance normal, both eyes and all related structures Resp: Effort & Inspection: normal respiratory effort Cardio: Rate: regular rate Rhythm: regular rhythm GI: Palpation (GI): Soft to palpation and Tenderness to palpation present (GI) periumbilically Skin: General skin exam: no rashes or lesions noted Results Labs CBC & Chem 7: 05/09/21 05:47 05/14/21 08:56 Labs: Short CBC 05/03/21 05/04/21 Range/Units 18:22 06:17 WBC 19.3 H 11.3 H (4.8-10.8) X10*3/uL Hgb 8.6 L 8.0 L (12.0-16.0) g/dl Hct 27.2 L D 25.9 L (37-47) % Plt Count 528 H D 493 H (160-400) X10*3/uL BMP 05/03/21 05/04/21 18:22 06:17 Sodium 134 L 134 L Potassium 4.1 4.1 Chloride 103 103 Carbon Dioxide 25 26 BUN 10 6 L Creatinine 0.52 0.55 Calcium 8.5 8.4 Liver Function 05/03/21 05/04/21 Range/Units 18:22 06:17 Total Bilirubin 0.3 (0.0-1.0) mg/dL AST 13 (5-31) U/L ALT 14 (0-31) U/L Alkaline Phosphatase 107 (39-117) U/L Albumin 3.3 L 3.0 L (3.5-5.0) g/dL Urine 05/03/21 05/03/21 Range/Units 17:43 18:23 Urine Color YELLOW YELLOW Urine Appearance CLEAR HAZY Urine pH 6.0 6.0 (5.0-8.0) Ur Specific [place] 1.020 1.025 (1.005-1.025) Urine Protein 1+ H 1+ H (NEG-TRACE) MG/DL Urine Glucose (UA) NEG NEG (NEG) MG/DL Microbiology Microbiology Results: Microbiology 05/03/21 17:54 Urine clean catch - Urine antoine top Urine Culture - Preliminary No growth to date. 05/03/21 18:22 Blood - Venous Blood Culture - Preliminary Assessment and Plan (1) Pelvic cancer: Status: Acute (2) On total parenteral nutrition: Status: Acute (3) Diabetes: Status: Acute (4) Abdominal pain: Qualifiers: Abdominal location: lower abdomen, unspecified Qualified Code(s): R10.30 - Lower abdominal pain, unspecified Status: Acute She has probable urinary pathology Gram positive cocci blood may be contaminant (5) Acute UTI: Status: Acute Continue Levaquin Likely 10 days Levaquin and change to po when improved Await final blood culture
[2021-05-04 17:19] VITALS: BP 109/41; PULSE 84; RESP 20; O2SAT 98
[2021-05-04 17:58] LABS: Glucose, Whole Blood 143 mg/dL (60-115)
[2021-05-04] MEDS: Fat Emulsions 20% 250 ML 13 ML IVCONT (18:10)
[2021-05-04 20:00] VITALS: BP 107/55; PULSE 80; RESP 18; TEMP 37; O2SAT 97
[2021-05-04 20:51] LABS: Glucose, Whole Blood 224 mg/dL (60-115)
[2021-05-04 21:00] VITALS: BMI 19.3
[2021-05-04] MEDS: Insulin Lispro 100 UNIT/ML 3 ML VIAL SUBCUT (21:14)
[2021-05-04] MEDS: 0.9 % Sodium Chloride Flush 3 ML SYRINGE IVFLUSH (21:15)
[2021-05-05] VITALS (7 sets, daily range): BP systolic 95–108; BP diastolic 42–54; PULSE 79–93; RESP 14–20; TEMP 36.1–37.1; O2SAT 98–100
[2021-05-05 06:30] LABS: Hematocrit 28.2 % (37-47); Hemoglobin 8.6 g/dl (12.0-16.0); Mean Corpuscular HGB Conc 30.5 g/dl (31.0-35.0); Mean Corpuscular Hemoglobin 22.4 pg (27.0-33.0); Mean Corpuscular Volume 73.4 fL (80-98); Mean Platelet Volume 10.1 fL (9.4-12.3); Platelet Count 569 X10*3/uL (160-400); Red Blood Count 3.84 X10*6/uL (4.20-5.50); Red Cell Distribution Width 16.2 % (11.0-16.0); White Blood Count 7.5 X10*3/uL (4.8-10.8)
[2021-05-05 07:15] LABS: Anion Gap 10 (12-20); Blood Urea Nitrogen 10 mg/dL (9-16); Calcium 8.2 mg/dL (8.4-10.2); Carbon Dioxide 28 mmol/L (22-29); Chloride 103 mmol/L (96-108); Creatinine Clr Calc Pharmacy 63.3; Estimated Glomerular Filt Rate > 60; Glucose Fasting 282 mg/dL (60-99); Potassium 4.5 mmol/L (3.3-5.1); Sodium 136 mmol/L (135-145)
[2021-05-05 07:27] LABS: Glucose, Whole Blood 231 mg/dL (60-115)
[2021-05-05] MEDS: Insulin Lispro 100 UNIT/ML 3 ML VIAL SUBCUT ×3 (07:55→16:41)
--- NOTE | 2021-05-05 08:24 | PHA.PROG ---
Admission Date/Time: May 03, 2021 21:21 Indication: BACTEREMIA Weight in k kg Adjusted body weight in Kg: [place] body weight in Kg: Obesity Dosing Indication % IBW: Serum Creatinine - Last 168 Hours 05/03/21 05/04/21 05/05/21 18:22 06:17 06:19 Creatinine 0.52 0.55 0.62 Estimated CrCl and GFR - Last 168 Hours 05/03/21 05/04/21 05/05/21 18:22 06:17 06:19 Estim Creat Clear Calc 75.7 71.6 63.3 Estimated GFR > 60 > 60 > 60 Vancomycin Loading Dose: Current Vancomycin Dosing Regimen: 1000 MG Q12H Vancomycin Monitoring using AUC goal of 400 - 600 range with trough as surrogate marker: AUC 518, WILL BE IN RANGE AFTER 3 DOSES Date and Time for next Vancomycin Level to be drawn: 05/06 @1930 Pharmacist Comments on Vancomycin Plan: BASED ON THE PATIENTS WEIGHT, AGE AND SCR, I DECIDED TO START WITHOUT A LOADING DOSE BECAUSE WITH THE CURRENT REGIMEN OF 1000 MG Q12H WILL GET THE PATIENT INTO A THERAPEUTIC RANGE AFTER 3 DOSES WITH AN EXPECTED TROUGH OF 14.2. Vancomycin dosing will take advantage of ugichem as a clinical decision support tool that uses Bayesian modeling to calculate individual patient's pharmacokinetic parameters and forecast the patient's drug concentration time course with the target goal AUC 24 range of 400 - 600 mg/L/hr.
[2021-05-05] MEDS: vancomycin HCL 1,000 MG in 0.9 % Sodium Chloride 250 ML 270 MG IV ×2 (09:08→22:24)
[2021-05-05 10:10] LABS: Albumin Level 2.9 g/dL (3.5-5.0); Magnesium 1.9 mg/dL (1.6-2.6); Phosphorus 4.2 mg/dL (2.7-4.5); Triglycerides 153 mg/dL
--- NOTE | 2021-05-05 10:21 | P.PNGS_ITS ---
Subjective Subjective Date of Service: 05/05/21 Interval history: Has been passing flatus Had BMs A little pain on the abdomen No nausea or vomiting Physical Exam Vital Signs: Vital Signs: Last Vital Signs Temp 98.4 F 05/05/21 07:04 Pulse 85 05/05/21 07:04 Resp 20 05/05/21 07:04 BP 101/44 L 05/05/21 07:04 Pulse Ox 99 05/05/21 07:04 Body Mass Index 19.3 Chemistry 05/03/21 05/04/21 05/05/21 18:22 06:17 06:19 Sodium 134 L 134 L 136 Potassium 4.1 4.1 4.5 Carbon Dioxide 25 26 28 BUN 10 6 L 10 D Creatinine 0.52 0.55 0.62 Calcium 8.5 8.4 8.2 L Phosphorus 4.3 4.2 Hematology 05/03/21 05/04/21 05/05/21 18:22 06:17 06:19 WBC 19.3 H 11.3 H 7.5 Hgb 8.6 L 8.0 L 8.6 L Plt Count 528 H D 493 H 569 H Urinalysis 05/03/21 05/03/21 17:43 18:23 Urine Color YELLOW YELLOW Urine Appearance CLEAR HAZY Urine pH 6.0 6.0 Ur Specific Gravit y 1.020 1.025 Urine Protein 1+ H 1+ H Urine Glucose (UA) NEG NEG Urine Ketones NEG NEG Urine Blood 2+ H 3+ H Urine Nitrite POS H POS H Ur Leukocyte April ase NEG NEG Urine RBC 5-9 H 15-29 H Urine WBC 0 0 Ur Squamous Epith Cells NONE 1+ Const: Other: Looks well General: comfortable and no acute distress Resp: Effort & Inspection: normal respiratory effort GI: Inspection: No distended Palpation (GI): Soft to palpation, not firm, Tenderness to palpation present (GI) (Minimal tenderness, mostly lower abdomen) and no guarding Procedures Date of Service Date of Service: 05/05/21 Progress Note: A&P Assessment and plan (1) Abdominal pain: Status: Acute Assessment and Plan: CT scan suspicious for recurrent disease from ovarian cancer Also likely carcinomatosis Currently not clinically obstructed Okay to restart clear liquids and advance diet slowly as tolerated Looks well Fall Risk Details Current Medications: Current Medications Dextrose (Dextrose 50 % 25 Gm/50 Ml Vial) 25 gm IVPUSH Q15M PRN; Protocol PRN Reason: per Hypoglycemia Standing Ord. Glucose (Glucose Gel 15 Gm Gel..Gram.) 15 gm PO Q15M PRN; Protocol PRN Reason: per Hypoglycemia Standing Ord. Levofloxacin (Levaquin) 500 mg in 100 mls @ 100 mls/hr IV Q24H [facility] Last Admin: 05/04/21 19:04 Dose: Not Given Documented by: Potassium Chloride 56 meq/Sodium Chloride 184 meq/Magnesium Sulfate 28 meq/Calcium Gluconate 10 meq/Sodium Acetate 20 meq/ Sodium Phosphate 12 mmol/Multivitamins 15 ml/ Trace Metals 1.5 ml/ Amino Acids/Dextrose 1,320 mls @ 55 mls/hr IVCONT DAILY@1800 [facility] Stop: 05/05/21 17:59 Last Admin: 05/04/21 18:15 Dose: 55 mls/hr Documented by: Vancomycin HCl 1,000 mg/ (Sodium Chloride) 270 mls @ 270 mls/hr IV Q12H [facility] Last Infusion: 05/05/21 10:15 Dose: Infused Documented by: Insulin Human Lispro (Insulin Lispro 100 Unit/Ml 3 Ml Vial) 0 unit SUBCUT QIDACHS [facility]; Protocol Last Admin: 05/05/21 07:55 Dose: 4 unit Documented by: Melatonin (Melatonin 3 Mg Tablet) 6 mg PO BEDTIME PRN PRN Reason: Insomnia Pharmacy Consult (Consult Rx Perform Med Rec) 1 each MISCELLANE ONCE PRN PRN Reason: Consult order Pharmacy Consult (Consult Rx Vancomycin Dosing) 1 each MISCELLANE DAILY PRN PRN Reason: Consult order Sodium Chloride (0.9 % Sodium Chloride Flush 3 Ml Syringe) 3 ml IVFLUSH QSHIFT [facility] Last Admin: 05/05/21 07:56 Dose: Not Given Documented by: Time Spent With Patient Time: Total time spent is greater than 50% in coordination of care (as documented) at patient's floor/unit and/or counseling patient: Time with patient: 15 - 24 minutes Quality Stroke Does the patient have a stroke diagnosis?: No VTE Prior VTE?: No VTE Risk Level:: Medical - moderate - high VTE Device Contraindication: N/A - Device Ordered VTE Drug Contraindication: Treatment Not Tolerated
[2021-05-05 10:58] LABS: Glucose, Whole Blood 179 mg/dL (60-115)
--- NOTE | 2021-05-05 12:30 | HO.PM.IMPN ---
Subjective Subjective Date of Service: 05/05/21 Interval History: cc: abdominal pain interval history: pain resolved yesterday, started on liquids, reports toelrating well, but also reporting recurrence of abdominal pain, has been having BMs Cardiovascular Cardiovascular: Reports no additional cardiovascular complaints Respiratory Respiratory: Reports no additional respiratory complaints Physical Exam Vital Signs: Vital Signs: Last Vital Signs Temp 98.6 F 05/05/21 11:23 Pulse 93 05/05/21 11:23 Resp 18 05/05/21 11:23 BP 102/54 L 05/05/21 11:23 Pulse Ox 100 05/05/21 11:23 Body Mass Index 19.3 General: AO X 3, no acute distress Resp: CTA bilateral, no accessory muscles used CVS: S1,S2,RRR GI: soft, tender midabdomen, non distended Neuro: motor grossly intact, alert Psych: appropriate affect, appropriate insight Objective Data Active Medications Acetaminophen (Acetaminophen 325 Mg Tablet) 650 mg PO Q6H PRN PRN Reason: pain Dextrose (Dextrose 50 % 25 Gm/50 Ml Vial) 25 gm IVPUSH Q15M PRN; Protocol PRN Reason: per Hypoglycemia Standing Ord. Glucose (Glucose Gel 15 Gm Gel..Gram.) 15 gm PO Q15M PRN; Protocol PRN Reason: per Hypoglycemia Standing Ord. Levofloxacin (Levaquin) 500 mg in 100 mls @ 100 mls/hr IV Q24H [facility] Last Admin: 05/04/21 19:04 Dose: Not Given Documented by: SAKSHI Non-Admin Reason: Previously Administered Potassium Chloride 56 meq/Sodium Chloride 184 meq/Magnesium Sulfate 28 meq/Calcium Gluconate 10 meq/Sodium Acetate 20 meq/ Sodium Phosphate 12 mmol/Multivitamins 15 ml/ Trace Metals 1.5 ml/ Amino Acids/Dextrose 1,320 mls @ 55 mls/hr IVCONT DAILY@1800 [facility] Stop: 05/05/21 17:59 Last Admin: 05/04/21 18:15 Dose: 55 mls/hr Documented by: [place] Vancomycin HCl 1,000 mg/ (Sodium Chloride) 270 mls @ 270 mls/hr IV Q12H [facility] Last Infusion: 05/05/21 10:15 Dose: 0 mls/hr Documented by: ROSE Potassium Chloride 56 meq/Sodium Chloride 184 meq/Magnesium Sulfate 28 meq/Calcium Gluconate 10 meq/Sodium Acetate 20 meq/ Sodium Phosphate 12 mmol/Multivitamins 15 ml/ Trace Metals 1.5 ml/ Amino Acids/Dextrose 1,320 mls @ 55 mls/hr IVCONT DAILY@1800 [facility] Stop: 05/06/21 17:59 Fat Emulsion Intravenous (Intralipid) 156 mls @ 13 mls/hr IVCONT DAILY@1800 [facility] Stop: 05/06/21 05:59 Insulin Human Lispro (Insulin Lispro 100 Unit/Ml 3 Ml Vial) 0 unit SUBCUT QIDACHS [facility]; Protocol Last Admin: 05/05/21 11:11 Dose: 2 unit Documented by: ROSE Melatonin (Melatonin 3 Mg Tablet) 6 mg PO BEDTIME PRN PRN Reason: Insomnia Pharmacy Consult (Consult Rx Perform Med Rec) 1 each MISCELLANE ONCE PRN PRN Reason: Consult order Pharmacy Consult (Consult Rx Vancomycin Dosing) 1 each MISCELLANE DAILY PRN PRN Reason: Consult order Sodium Chloride (0.9 % Sodium Chloride Flush 3 Ml Syringe) 3 ml IVFLUSH [facility] Last Admin: 05/05/21 07:56 Dose: Not Given Documented by: ROSE Non-Admin Reason: IV Running Labs CBC & Chem 7: 05/05/21 06:19 05/05/21 06:19 Labs: Laboratory Results - last 24 hr 05/04/21 05/04/21 05/05/21 17:54 20:44 06:19 MCV 73.4 L MCH 22.4 L MCHC 30.5 L RDW 16.2 H Plt Count 569 H MPV 10.1 Absolute Nucleated RBC 0.000 Nucleated RBC % (auto) 0.0 Anion Gap Estim Creat Clear Calc Estimated GFR POC Glucose 143 H 224 H Fasting Glucose Calcium Phosphorus Magnesium Albumin Triglycerides 05/05/21 05/05/21 05/05/21 06:19 07:08 10:53 MCV MCH MCHC RDW Plt Count MPV Absolute Nucleated RBC Nucleated RBC % (auto) Anion Gap 10 L Estim Creat Clear Calc 63.3 Estimated GFR > 60 POC Glucose 231 H 179 H Fasting Glucose 282 H Calcium 8.2 L Phosphorus 4.2 Magnesium 1.9 Albumin 2.9 L Triglycerides 153 Microbiology Microbiology Results: Microbiology 05/03/21 17:54 Urine Culture - Final Urine clean catch - Urine antoine top 05/03/21 18:22 Blood Culture - Preliminary Blood - Venous Staphylococcus species 05/03/21 19:24 Blood Culture - Preliminary Blood - Venous Staphylococcus species Assessment and Plan (1) On total parenteral nutrition: Status: Acute (2) Abdominal pain: Status: Acute (3) Acute UTI: Status: Acute (4) Bacteremia: Status: Resolved (5) Bacteremia: Status: Acute Assessment and Plan: ?66-year-old female with a past medical history of diabetes, history of ovarian on chemo; recent presentation to [facility] for hematuria status post cystoscopy on last Friday; has been having feeding difficulties, reduced oral intake; patient is on TPN via midline [facility]; plan for abdominal surgery; presented with a chief complaint abdominal pain.? CT abdomen showed possible obstruction SBO appears to have resolved continue liquids, if tolerates will advance to solids, continue TPN staph bacteremia:? now /, species still pending, started vanco, check repeat, ID following ovarian cancer with metastatic disease outpatient follow up at [facility] Diabetes Insulin sliding scale DVT prophylaxis SCD boots (hold pharmacologic agent given concerns repeat hematuria) Quality Stroke Does the patient have a stroke diagnosis?: No VTE Prior VTE?: No VTE Risk Level:: Medical - moderate - high VTE Device Contraindication: N/A - Device Ordered VTE Drug Contraindication: Treatment Not Tolerated
[2021-05-05] MEDS: Phenazopyridine HCL 100 MG TABLET PO (14:11)
[2021-05-05] MEDS: Acetaminophen 325 MG TABLET 650 MG PO (14:14)
[2021-05-05 16:32] LABS: Glucose, Whole Blood 247 mg/dL (60-115)
[2021-05-05] MEDS: Fat Emulsions 20% 250 ML 13 ML IVCONT (18:31)
[2021-05-05 20:45] LABS: Glucose, Whole Blood 132 mg/dL (60-115)
[2021-05-05] MEDS: levoFLOXacin/D5W 500 MG/100 ML PIGGYBACK 100 MG IV (21:13)
[2021-05-05] MEDS: 0.9 % Sodium Chloride Flush 3 ML SYRINGE IVFLUSH (22:24)
[2021-05-05] MEDS: Benzonatate 100 MG CAPSULE PO (23:31)
[2021-05-06 04:00] VITALS: BP 95/53; PULSE 85; RESP 18; TEMP 37; O2SAT 98
[2021-05-06 07:00] LABS: Hematocrit 29.2 % (37-47); Hemoglobin 8.7 g/dl (12.0-16.0); Mean Corpuscular HGB Conc 29.8 g/dl (31.0-35.0); Mean Corpuscular Volume 73.9 fL (80-98); Platelet Count 583 X10*3/uL (160-400); Red Blood Count 3.95 X10*6/uL (4.20-5.50); Red Cell Distribution Width 15.9 % (11.0-16.0); White Blood Count 6.2 X10*3/uL (4.8-10.8)
[2021-05-06 07:06] VITALS: BP 98/55; PULSE 83; RESP 20; TEMP 36.6; O2SAT 99
[2021-05-06 07:26] LABS: Anion Gap 11 (12-20); Blood Urea Nitrogen 10 mg/dL (9-16); Calcium 8.6 mg/dL (8.4-10.2); Carbon Dioxide 27 mmol/L (22-29); Chloride 104 mmol/L (96-108); Creatinine Clr Calc Pharmacy 65.5; Estimated Glomerular Filt Rate > 60; Glucose Fasting 261 mg/dL (60-99); Potassium 4.6 mmol/L (3.3-5.1); Sodium 137 mmol/L (135-145)
[2021-05-06 07:29] LABS: Glucose, Whole Blood 229 mg/dL (60-115)
[2021-05-06] MEDS: 0.9 % Sodium Chloride Flush 3 ML SYRINGE IVFLUSH ×2 (07:48→21:30)
[2021-05-06] MEDS: Insulin Lispro 100 UNIT/ML 3 ML VIAL SUBCUT ×4 (07:48→21:29)
[2021-05-06] MEDS: vancomycin HCL 1,000 MG in 0.9 % Sodium Chloride 250 ML 270 MG IV (07:48)
[2021-05-06 08:28] LABS: Albumin Level 3.1 g/dL (3.5-5.0); Magnesium 1.9 mg/dL (1.6-2.6); Phosphorus 3.1 mg/dL (2.7-4.5); Triglycerides 153 mg/dL
--- NOTE | 2021-05-06 10:07 | HO.PM.IMPN ---
Subjective Subjective Date of Service: 05/06/21 Interval History: cc: abd pain interval history: abd pain has been coming and going, now improved again. Cardiovascular Cardiovascular: Reports no additional cardiovascular complaints Respiratory Respiratory: Reports no additional respiratory complaints Physical Exam Vital Signs: Vital Signs: Last Vital Signs Temp 97.9 F 05/06/21 07:06 Pulse 83 05/06/21 07:06 Resp 20 05/06/21 07:06 BP 98/55 L 05/06/21 07:06 Pulse Ox 99 05/06/21 07:06 Body Mass Index 19.3 General: AO X 3, no acute distress Resp:? CTA bilateral, no accessory muscles used CVS: S1,S2,RRR GI: soft, non tender, non distended Neuro:? motor grossly intact, alert Psych: appropriate affect, appropriate insight? Objective Data Active Medications Acetaminophen (Acetaminophen 325 Mg Tablet) 650 mg PO Q6H PRN PRN Reason: pain Last Admin: 05/05/21 14:14 Dose: 650 mg Documented by: ROSE Benzonatate (Benzonatate 100 Mg Capsule) 100 mg PO TID PRN PRN Reason: Cough Last Admin: 05/05/21 23:31 Dose: 100 mg Documented by: PARDEEP Dextrose (Dextrose 50 % 25 Gm/50 Ml Vial) 25 gm IVPUSH Q15M PRN; Protocol PRN Reason: per Hypoglycemia Standing Ord. Glucose (Glucose Gel 15 Gm Gel..Gram.) 15 gm PO Q15M PRN; Protocol PRN Reason: per Hypoglycemia Standing Ord. Levofloxacin (Levaquin) 500 mg in 100 mls @ 100 mls/hr IV Q24H [facility] Last Infusion: 05/05/21 22:24 Dose: 0 mls/hr Documented by: PARDEEP Vancomycin HCl 1,000 mg/ (Sodium Chloride) 270 mls @ 270 mls/hr IV Q12H [facility] Last Infusion: 05/06/21 09:07 Dose: 0 mls/hr Documented by: ROSE Potassium Chloride 56 meq/Sodium Chloride 184 meq/Magnesium Sulfate 28 meq/Calcium Gluconate 10 meq/Sodium Acetate 20 meq/ Sodium Phosphate 12 mmol/Multivitamins 15 ml/ Trace Metals 1.5 ml/ Amino Acids/Dextrose 1,320 mls @ 55 mls/hr IVCONT DAILY@1800 [facility] Stop: 05/06/21 17:59 Last Admin: 05/05/21 18:31 Dose: 55 mls/hr Documented by: ROSE Potassium Chloride 56 meq/Sodium Chloride 184 meq/Magnesium Sulfate 28 meq/Calcium Gluconate 10 meq/Sodium Acetate 20 meq/ Sodium Phosphate 12 mmol/Multivitamins 15 ml/ Trace Metals 1.5 ml/ Amino Acids/Dextrose 1,320 mls @ 55 mls/hr IVCONT DAILY@1800 [facility] Stop: 05/07/21 17:59 Fat Emulsion Intravenous (Intralipid) 156 mls @ 13 mls/hr IVCONT DAILY@1800 [facility] Stop: 05/07/21 05:59 Insulin Human Lispro (Insulin Lispro 100 Unit/Ml 3 Ml Vial) 0 unit SUBCUT QIDACHS [facility]; Protocol Last Admin: 05/06/21 07:48 Dose: 4 unit Documented by: ROSE Melatonin (Melatonin 3 Mg Tablet) 6 mg PO BEDTIME PRN PRN Reason: Insomnia Pharmacy Consult (Consult Rx Perform Med Rec) 1 each MISCELLANE ONCE PRN PRN Reason: Consult order Pharmacy Consult (Consult Rx Vancomycin Dosing) 1 each MISCELLANE DAILY PRN PRN Reason: Consult order Phenazopyridine HCl (Phenazopyridine Hcl 100 Mg Tablet) 100 mg PO TIDWM PRN PRN Reason: pain Stop: 05/07/21 14:02 Last Admin: 05/05/21 14:11 Dose: 100 mg Documented by: ROSE Sodium Chloride (0.9 % Sodium Chloride Flush 3 Ml Syringe) 3 ml IVFSH [facility] Last Admin: 05/06/21 07:48 Dose: 3 ml Documented by: ROSE Labs CBC & Chem 7: 05/06/21 06:33 05/06/21 06:34 Labs: Laboratory Results - last 24 hr 05/05/21 05/05/21 05/05/21 06:19 10:53 16:13 MCV MCH MCHC RDW Plt Count MPV Absolute Nucleated RBC Nucleated RBC % (auto) Anion Gap Estim Creat Clear Calc Estimated GFR POC Glucose 179 H 247 H Fasting Glucose Calcium Phosphorus 4.2 Magnesium 1.9 Albumin 2.9 L Triglycerides 153 05/05/21 05/06/21 05/06/21 20:41 06:33 06:34 MCV 73.9 L MCH 22.0 L MCHC 29.8 L RDW 15.9 Plt Count 583 H MPV 10.0 Absolute Nucleated RBC 0.000 Nucleated RBC % (auto) 0.0 Anion Gap 11 L Estim Creat Clear Calc 65.5 Estimated GFR > 60 POC Glucose 132 H Fasting Glucose 261 H Calcium 8.6 Phosphorus 3.1 Magnesium 1.9 Albumin 3.1 L Triglycerides 153 05/06/21 07:04 MCV MCH MCHC RDW Plt Count MPV Absolute Nucleated RBC Nucleated RBC % (auto) Anion Gap Estim Creat Clear Calc Estimated GFR POC Glucose 229 H Fasting Glucose Calcium Phosphorus Magnesium Albumin Triglycerides Microbiology Microbiology Results: Microbiology 05/03/21 19:24 Blood Culture - Preliminary Blood - Venous Staphylococcus species 05/03/21 18:22 Blood Culture - Preliminary Blood - Venous Staphylococcus species 05/03/21 17:54 Urine Culture - Final Urine clean catch - Urine antoine top Assessment and Plan (1) On total parenteral nutrition: Status: Acute (2) Abdominal pain: Status: Acute (3) Acute UTI: Status: Acute (4) Bacteremia: Status: Resolved (5) Bacteremia: Status: Acute Assessment and Plan: ?66-year-old female with a past medical history of diabetes, history of ovarian on chemo; recent presentation to [facility] for hematuria status post cystoscopy on last Friday; has been having feeding difficulties, reduced oral intake; patient is on TPN via midline [facility]; plan for abdominal surgery; presented with a chief complaint abdominal pain.? CT abdomen showed possible obstruction SBO appears to have resolved, but high risk for recurrence continue liquids, continue TPN staph bacteremia:? now 2/2, staph species, started vanco, check repeat, ID following ovarian cancer with metastatic disease outpatient follow up at [facility] Diabetes Insulin sliding scale DVT prophylaxis SCD boots (hold pharmacologic agent given concerns repeat hematuria) Quality Stroke Does the patient have a stroke diagnosis?: No VTE Prior VTE?: No VTE Risk Level:: Medical - moderate - high VTE Device Contraindication: N/A - Device Ordered VTE Drug Contraindication: Treatment Not Tolerated
[2021-05-06 10:56] LABS: Glucose, Whole Blood 242 mg/dL (60-115)
[2021-05-06 11:30] VITALS: BP 101/50; PULSE 91; RESP 20; TEMP 36.9; O2SAT 99
--- NOTE | 2021-05-06 11:51 | PM.PNGS ---
Subjective Subjective Date of Service: 05/06/21 Interval history: Says she feels better Good flatus, has BMs No nausea or vomiting Minimal tenderness on the abdomen Physical Exam Vital Signs: Vital Signs: Last Vital Signs Temp 98.5 F 05/06/21 11:30 Pulse 91 05/06/21 11:30 Resp 20 05/06/21 11:30 BP 101/50 L 05/06/21 11:30 Pulse Ox 99 05/06/21 11:30 Body Mass Index 19.3 Const: General: comfortable and no acute distress Resp: Effort & Inspection: normal respiratory effort GI: Palpation (GI): Soft to palpation, not firm, nontender and no guarding Procedures Date of Service Date of Service: 05/06/21 Progress Note: A&P Assessment and plan (1) Abdominal pain: Status: Acute Assessment and Plan: Has flatus and bowel movements Diet as tolerated Abdominal exam benign CT scan shows likely recurrence of pelvic cancer, carcinomatosis Fall Risk Details Current Medications: Current Medications Acetaminophen (Acetaminophen 325 Mg Tablet) 650 mg PO Q6H PRN PRN Reason: pain Last Admin: 05/05/21 14:14 Dose: 650 mg Documented by: Benzonatate (Benzonatate 100 Mg Capsule) 100 mg PO TID PRN PRN Reason: Cough Last Admin: 05/05/21 23:31 Dose: 100 mg Documented by: Dextrose (Dextrose 50 % 25 Gm/50 Ml Vial) 25 gm IVPUSH Q15M PRN; Protocol PRN Reason: per Hypoglycemia Standing Ord. Glucose (Glucose Gel 15 Gm Gel..Gram.) 15 gm PO Q15M PRN; Protocol PRN Reason: per Hypoglycemia Standing Ord. Levofloxacin (Levaquin) 500 mg in 100 mls @ 100 mls/hr IV Q24H [facility] Last Infusion: 05/05/21 22:24 Dose: Infused Documented by: Vancomycin HCl 1,000 mg/ (Sodium Chloride) 270 mls @ 270 mls/hr IV Q12H [facility] Last Infusion: 05/06/21 09:07 Dose: Infused Documented by: Potassium Chloride 56 meq/Sodium Chloride 184 meq/Magnesium Sulfate 28 meq/Calcium Gluconate 10 meq/Sodium Acetate 20 meq/ Sodium Phosphate 12 mmol/Multivitamins 15 ml/ Trace Metals 1.5 ml/ Amino Acids/Dextrose 1,320 mls @ 55 mls/hr IVCONT DAILY@1800 [facility] Stop: 05/06/21 17:59 Last Admin: 05/05/21 18:31 Dose: 55 mls/hr Documented by: Potassium Chloride 56 meq/Sodium Chloride 184 meq/Magnesium Sulfate 28 meq/Calcium Gluconate 10 meq/Sodium Acetate 20 meq/ Sodium Phosphate 12 mmol/Multivitamins 15 ml/ Trace Metals 1.5 ml/ Amino Acids/Dextrose 1,320 mls @ 55 mls/hr IVCONT DAILY@1800 [facility] Stop: 05/07/21 17:59 Fat Emulsion Intravenous (Intralipid) 156 mls @ 13 mls/hr IVCONT DAILY@1800 [facility] Stop: 05/07/21 05:59 Insulin Human Lispro (Insulin Lispro 100 Unit/Ml 3 Ml Vial) [facility] Protocol Last Admin: 05/06/21 10:57 Dose: 4 unit Documented by: Melatonin (Melatonin 3 Mg Tablet) 6 mg PO BEDTIME PRN PRN Reason: Insomnia Pharmacy Consult (Consult Rx Perform Med Rec) 1 each MISCELLANE ONCE PRN PRN Reason: Consult order Pharmacy Consult (Consult Rx Vancomycin Dosing) 1 each MISCELLANE DAILY PRN PRN Reason: Consult order Phenazopyridine HCl (Phenazopyridine Hcl 100 Mg Tablet) 100 mg PO TIDWM PRN PRN Reason: pain Stop: 05/07/21 14:02 Last Admin: 05/05/21 14:11 Dose: 100 mg Documented by: Sodium Chloride (0.9 % Sodium Chloride Flush 3 Ml Syringe) 3 ml [facility] [place] Admin: 05/06/21 07:48 Dose: 3 ml Documented by: Time Spent With Patient Time: Total time spent is greater than 50% in coordination of care (as documented) at patient's floor/unit and/or counseling patient: Time with patient: 15 - 24 minutes Quality Stroke Does the patient have a stroke diagnosis?: No VTE Prior VTE?: No VTE Risk Level:: Medical - moderate - high VTE Device Contraindication: N/A - Device Ordered VTE Drug Contraindication: Treatment Not Tolerated
[2021-05-06 16:00] VITALS: BP 118/55; PULSE 106; RESP 20; TEMP 36.6; O2SAT 100
[2021-05-06 16:20] LABS: Glucose, Whole Blood 161 mg/dL (60-115)
[2021-05-06] MEDS: Fat Emulsions 20% 250 ML 13 ML IVCONT (17:10)
[2021-05-06 20:00] VITALS: BP 116/86; PULSE 86; RESP 18; TEMP 37.2; O2SAT 100
[2021-05-06 20:12] LABS: Vancomycin Trough 7.6 mcg/mL (10.0-20.0)
--- NOTE | 2021-05-06 20:21 | PHA.PROG ---
Admission Date/Time: May 03, 2021 21:21 Indication: Bactermia Weight in k kg Adjusted body weight in K.3 [place] body weight in K.5 Serum Creatinine - Last 168 Hours 05/03/21 05/04/21 05/05/21 18:22 06:17 06:19 Creatinine 0.52 0.55 0.62 05/06/21 06:34 Creatinine 0.60 Estimated CrCl and GFR - Last 168 Hours 05/03/21 05/04/21 05/05/21 18:22 06:17 06:19 Estim Creat Clear Calc 75.7 71.6 63.3 Estimated GFR > 60 > 60 > 60 05/06/21 06:34 Estim Creat Clear Calc 65.5 Estimated GFR > 60 Vancomycin Loading Dose: N/A Current Vancomycin Dosing Regimen: 1000 mg Q12H Date and Time for next Vancomycin Level to be drawn: 05/08 @ 0800 Vancomycin Trough 7.6 mcg/mL (10.0-20.0) L 05/06/21 19:37 Pharmacist Comments on Vancomycin Plan: Due to subtheraputic trough, increase vanco dose to 1250 mg Q12H. Expect AUC 521 with a trough of 12.6 Next trough 05/08 @ 0800 Will continue to monitor SCr daily, and adjust accordingly Vancomycin dosing will take advantage of [employer] as a clinical decision support tool that uses Bayesian modeling to calculate individual patient's pharmacokinetic parameters and forecast the patient's drug concentration time course with the target goal AUC 24 range of 400 - 600 mg/L/hr.
[2021-05-06 21:17] LABS: Glucose, Whole Blood 201 mg/dL (60-115)
[2021-05-06] MEDS: levoFLOXacin/D5W 500 MG/100 ML PIGGYBACK 100 MG IV (21:30)
[2021-05-06] MEDS: vancomycin HCL 1,250 MG in 0.9 % Sodium Chloride 250 ML 166.67 MG IV (22:42)
[2021-05-07] VITALS: BP 114/49; PULSE 90; RESP 90; TEMP 36.2; O2SAT 98
[2021-05-07 03:26] VITALS: BP 111/56; PULSE 84; RESP 18; TEMP 36.6
[2021-05-07 07:07] VITALS: BP 100/54; PULSE 88; RESP 20; TEMP 36.1; O2SAT 98
[2021-05-07 07:36] LABS: Glucose, Whole Blood 250 mg/dL (60-115)
[2021-05-07] MEDS: 0.9 % Sodium Chloride Flush 3 ML SYRINGE IVFLUSH ×3 (08:00→21:22)
[2021-05-07] MEDS: vancomycin HCL 1,250 MG in 0.9 % Sodium Chloride 250 ML 166.67 MG IV ×2 (08:00→22:45)
[2021-05-07] MEDS: Insulin Lispro 100 UNIT/ML 3 ML VIAL SUBCUT ×4 (08:00→21:22)
[2021-05-07] MEDS: Phenazopyridine HCL 100 MG TABLET PO ×2 (08:06→13:22)
[2021-05-07 09:57] LABS: Hematocrit 29.2 % (37-47); Mean Corpuscular HGB Conc 30.8 g/dl (31.0-35.0); Mean Corpuscular Hemoglobin 22.7 pg (27.0-33.0); Mean Corpuscular Volume 73.7 fL (80-98); Mean Platelet Volume 9.7 fL (9.4-12.3); Platelet Count 505 X10*3/uL (160-400); Red Blood Count 3.96 X10*6/uL (4.20-5.50); Red Cell Distribution Width 15.9 % (11.0-16.0); White Blood Count 12.1 X10*3/uL (4.8-10.8)
[2021-05-07 10:10] LABS: Anion Gap 14 (12-20); Blood Urea Nitrogen 10 mg/dL (9-16); Calcium 8.5 mg/dL (8.4-10.2); Carbon Dioxide 23 mmol/L (22-29); Chloride 104 mmol/L (96-108); Creatinine Clr Calc Pharmacy 65.5; Estimated Glomerular Filt Rate > 60; Glucose Fasting 171 mg/dL (60-99); Potassium 4.5 mmol/L (3.3-5.1); Sodium 136 mmol/L (135-145)
[2021-05-07 10:59] VITALS: BP 90/50; PULSE 95; RESP 20; TEMP 36.6; O2SAT 96
[2021-05-07 11:30] LABS: Glucose, Whole Blood 154 mg/dL (60-115)
[2021-05-07 12:34] LABS: Magnesium 1.9 mg/dL (1.6-2.6); Phosphorus 2.7 mg/dL (2.7-4.5)
--- NOTE | 2021-05-07 12:51 | HO.PM.IMPN ---
Subjective Subjective Date of Service: 05/07/21 Interval History: cc: abd pain interval history: pain better today, but comes and goes Cardiovascular Cardiovascular: Reports no additional cardiovascular complaints Respiratory Respiratory: Reports no additional respiratory complaints Physical Exam Vital Signs: Vital Signs: Last Vital Signs Temp 98 F 05/07/21 10:59 Pulse 95 05/07/21 10:59 Resp 20 05/07/21 10:59 BP 90/50 L 05/07/21 10:59 Pulse Ox 96 05/07/21 10:59 Body Mass Index 19.3 General: AO X 3, no acute distress Resp:? CTA bilateral, no accessory muscles used CVS: S1,S2,RRR GI: soft, non tender, non distended Neuro:? motor grossly intact, alert Psych: appropriate affect, appropriate insight? Objective Data Active Medications Acetaminophen (Acetaminophen 325 Mg Tablet) 650 mg PO Q6H PRN PRN Reason: pain Last Admin: 05/05/21 14:14 Dose: 650 mg Documented by: ROSE Benzonatate (Benzonatate 100 Mg Capsule) 100 mg PO TID PRN PRN Reason: Cough Last Admin: 05/05/21 23:31 Dose: 100 mg Documented by: PARDEEP Dextrose (Dextrose 50 % 25 Gm/50 Ml Vial) 25 gm IVPUSH Q15M PRN; Protocol PRN Reason: per Hypoglycemia Standing Ord. Glucose (Glucose Gel 15 Gm Gel..Gram.) 15 gm PO Q15M PRN; Protocol PRN Reason: per Hypoglycemia Standing Ord. Levofloxacin (Levaquin) 500 mg in 100 mls @ 100 mls/hr IV Q24H [facility] Last Infusion: 05/06/21 22:43 Dose: 0 mls/hr Documented by: ALANNA Potassium Chloride 56 meq/Sodium Chloride 184 meq/Magnesium Sulfate 28 meq/Calcium Gluconate 10 meq/Sodium Acetate 20 meq/ Sodium Phosphate 12 mmol/Multivitamins 15 ml/ Trace Metals 1.5 ml/ Amino Acids/Dextrose 1,320 mls @ 55 mls/hr IVCONT DAILY@1800 [facility] Stop: 05/07/21 17:59 Last Admin: 05/06/21 17:10 Dose: 55 mls/hr Documented by: ROSE Vancomycin HCl 1,250 mg/ (Sodium Chloride) 250 mls @ 166.667 mls/hr IV Q12H [facility] Last Infusion: 05/07/21 10:42 Dose: 0 mls/hr Documented by: ELIANA Potassium Chloride 56 meq/Sodium Chloride 184 meq/Magnesium Sulfate 28 meq/Calcium Gluconate 10 meq/Sodium Acetate 20 meq/ Sodium Phosphate 12 mmol/Multivitamins 15 ml/ Trace Metals 1.5 ml/ Amino Acids/Dextrose 1,320 mls @ 55 mls/hr IVCONT DAILY@1800 [facility] Stop: 05/08/21 17:59 Fat Emulsion Intravenous (Intralipid) 156 mls @ 13 mls/hr IVCONT DAILY@1800 [facility] Stop: 05/08/21 05:59 Insulin Human Lispro (Insulin Lispro 100 Unit/Ml 3 Ml Vial) 0 unit SUBCUT QIDACHS [facility]; Protocol Last Admin: 05/07/21 08:00 Dose: 4 unit Documented by: ELIANA Melatonin (Melatonin 3 Mg Tablet) 6 mg PO BEDTIME PRN PRN Reason: Insomnia Pharmacy Consult (Consult Rx Perform Med Rec) 1 each MISCELLANE ONCE PRN PRN Reason: Consult order Pharmacy Consult (Consult Rx Vancomycin Dosing) 1 each MISCELLANE DAILY PRN PRN Reason: Consult order Phenazopyridine HCl (Phenazopyridine Hcl 100 Mg Tablet) 100 mg PO TIDWM PRN PRN Reason: pain Stop: 05/07/21 14:02 Last Admin: 05/07/21 08:06 Dose: 100 mg Documented by: ELIANA Sodium Chloride (0.9 % Sodium Chloride Flush 3 Ml Syringe) [facility] Last Admin: 05/07/21 08:00 Dose: 3 ml Documented by: ELIANA Labs CBC & Chem 7: 05/07/21 09:43 05/07/21 09:43 Labs: Laboratory Results - last 24 hr 05/06/21 05/06/21 05/06/21 16:15 19:37 21:13 MCV MCH MCHC RDW Plt Count MPV Absolute Nucleated RBC Nucleated RBC % (auto) Anion Gap Estim Creat Clear Calc Estimated GFR POC Glucose 161 H 201 H Fasting Glucose Calcium Phosphorus Magnesium Vancomycin Trough 7.6 L 05/07/21 05/07/21 05/07/21 07:07 09:43 09:43 MCV 73.7 L MCH 22.7 L MCHC 30.8 L RDW 15.9 Plt Count 505 H MPV 9.7 Absolute Nucleated RBC 0.000 Nucleated RBC % (auto) 0.0 Anion Gap 14 Estim Creat Clear Calc 65.5 Estimated GFR > 60 POC Glucose 250 H Fasting Glucose 171 H Calcium 8.5 Phosphorus 2.7 Magnesium 1.9 Vancomycin Trough 05/07/21 11:26 MCV MCH MCHC RDW Plt Count MPV Absolute Nucleated RBC Nucleated RBC % (auto) Anion Gap Estim Creat Clear Calc Estimated GFR POC Glucose 154 H Fasting Glucose Calcium Phosphorus Magnesium Vancomycin Trough Microbiology Microbiology Results: Microbiology 05/06/21 06:36 Blood Culture - Preliminary Blood - Venous Prelim: GPC Gram Stain only 05/06/21 06:33 Blood Culture - Preliminary Blood - Venous Prelim: GPC Gram Stain only 05/03/21 19:24 Blood Culture - Final Blood - Venous Staphylococcus lugdunensis Staphylococcus epidermidis 05/03/21 18:22 Blood Culture - Final Blood - Venous Staphylococcus lugdunensis Staphylococcus epidermidis Assessment and Plan (1) On total parenteral nutrition: Status: Acute (2) Abdominal pain: Status: Acute (3) Acute UTI: Status: Acute (4) Bacteremia: Status: Resolved (5) Bacteremia: Status: Acute Assessment and Plan: ?66-year-old female with a past medical history of diabetes, history of ovarian on chemo; recent presentation to [facility] for hematuria status post cystoscopy on last Friday; has been having feeding difficulties, reduced oral intake; patient is on TPN via midline [facility]; plan for abdominal surgery; presented with a chief complaint abdominal pain.? CT abdomen showed possible obstruction SBO appears to have resolved, but high risk for recurrence continue liquids, continue TPN, monitor electrolytes staph bacteremia now 2/2, staph lugdunesis and epidermidisi, with next set 05/06 positive gram stain 2/2 GPC, cotninue vanco, check repeat, ID follow up ? need to remove picc ?echo ovarian cancer with metastatic disease outpatient follow up [facility] Diabetes Insulin sliding scale, monitor poc DVT prophylaxis SCD boots (hold pharmacologic agent given concerns repeat hematuria) Quality Stroke Does the patient have a stroke diagnosis?: No VTE Prior VTE?: No VTE Risk Level:: Medical - moderate - high VTE Device Contraindication: N/A - Device Ordered VTE Drug Contraindication: Treatment Not Tolerated
--- NOTE | 2021-05-07 14:39 | MHC.CLN ---
Addendum entered by Isabel Painting, IDA 05/07/21 14:42: RE: WT LOSS PREVIOUS WT HX REVEAL 115# 11/18/2018. PT WITH 14% WT CHANGE X 2 YEARS-NOT SIGNIFICANT AT THIS TIME. PT ALSO WITH HX OVARAIAN CA WITH CHEMO AND MAY BE CONTRIBUTOR TO WT CHANGE Original Note: RE: CONSULT FORMULA SWITCHED TO D15AA5 ON 05/04 PER MD PT RECEIVING D10AA4.25 AT 55ML/HR WITH 13ML OF 20% LIPIDS (X12HRS) TO PROVIDE 1249 TOTAL KCALS (28KCALS/KG), 66G PROTEIN (1.5G/KG) DISCUSSED WITH PHARMACY REPLETE LYTES NEEDED, MONITOR TRIGS
[2021-05-07 16:00] VITALS: BP 106/51; PULSE 102; RESP 18; TEMP 38.3; O2SAT 98
--- NOTE | 2021-05-07 16:28 | PM.IDPN ---
Subjective Subjective Date of Service: 05/07/21 Critical Care Time (minutes): 15 Comment: she feels well and has no complaints Objective Data Labs CBC & Chem 7: 05/09/21 05:47 05/14/21 08:56 Labs: Laboratory Results - last 24 hr 05/06/21 05/06/21 05/07/21 19:37 21:13 07:07 WBC RBC Hgb Hct MCV MCH MCHC RDW Plt Count MPV Absolute Nucleated RBC Nucleated RBC % (auto) Sodium Potassium Chloride Carbon Dioxide Anion Gap BUN Creatinine Estim Creat Clear Calc Estimated GFR POC Glucose 201 H 250 H Fasting Glucose Calcium Phosphorus Magnesium Vancomycin Trough 7.6 L 05/07/21 05/07/21 05/07/21 09:43 09:43 11:26 WBC 12.1 H RBC 3.96 L Hgb 9.0 L Hct 29.2 L MCV 73.7 L MCH 22.7 L MCHC 30.8 L RDW 15.9 Plt Count 505 H MPV 9.7 Absolute Nucleated RBC 0.000 Nucleated RBC % (auto) 0.0 Sodium 136 Potassium 4.5 Chloride 104 Carbon Dioxide 23 Anion Gap 14 BUN 10 Creatinine 0.60 Estim Creat Clear Calc 65.5 Estimated GFR > 60 POC Glucose 154 H Fasting Glucose 171 H Calcium 8.5 Phosphorus 2.7 Magnesium 1.9 Vancomycin Trough Microbiology Microbiology Results: Microbiology 05/06/21 06:36 Blood - Venous Blood Culture - Preliminary Prelim: GPC Gram Stain only 05/06/21 06:33 Blood - Venous Blood Culture - Preliminary Prelim: GPC Gram Stain only 05/03/21 19:24 Blood - Venous Blood Culture - Final Staphylococcus lugdunensis Staphylococcus epidermidis 05/03/21 18:22 Blood - Venous Blood Culture - Final Staphylococcus lugdunensis Staphylococcus epidermidis 05/03/21 17:54 Urine clean catch - Urine antoine top Urine Culture - Final Physical Exam Vital Signs: Vital Signs: Last Vital Signs Temp 101.0 F H 05/07/21 16:00 Pulse 102 H 05/07/21 16:00 Resp 18 05/07/21 16:00 BP 106/51 L 05/07/21 16:00 Pulse Ox 98 05/07/21 16:00 Body Mass Index 19.3 Const: General: cooperative HENMT: Head: Yes normal to inspection Mouth: Normal oral and palatal mucosa present Eyes: General: appearance normal, both eyes and all related structures Resp: Effort & Inspection: normal respiratory effort Cardio: Rate: regular rate Rhythm: regular rhythm GI: Palpation (GI): Soft to palpation and nontender Skin: Other: PICC line looks clear Assessment and Plan Assessment and plan Assessment and Plan: [place] but[place]anensis bacteremia She has PICC line likely source Would pull PICC line 4 weeks IV Vancomycin Time Spent With Patient Time: Total time spent is greater than 50% in coordination of care (as documented) at patient's floor/unit and/or counseling patient: Time with patient: less than 15 minutes
[2021-05-07 16:42] LABS: Glucose, Whole Blood 238 mg/dL (60-115)
[2021-05-07] MEDS: Acetaminophen 325 MG TABLET 650 MG PO (17:05)
[2021-05-07] MEDS: Fat Emulsions 20% 250 ML 13 ML IVCONT (18:55)
[2021-05-07 19:32] VITALS: BP 107/54; PULSE 89; RESP 19; TEMP 37.2; O2SAT 95
[2021-05-07 19:43] LABS: Lactic Acid 1.2 mmol/L (0.5-2.0)
[2021-05-07 21:20] LABS: Glucose, Whole Blood 187 mg/dL (60-115)
[2021-05-07] MEDS: levoFLOXacin/D5W 500 MG/100 ML PIGGYBACK 100 MG IV (21:21)
[2021-05-08] VITALS (7 sets, daily range): BP systolic 90–118; BP diastolic 42–54; PULSE 83–94; RESP 18–19; TEMP 36.4–36.9; O2SAT 97–100; BMI 22.1
[2021-05-08 06:22] LABS: Hematocrit 27.3 % (37-47); Hemoglobin 8.4 g/dl (12.0-16.0); Mean Corpuscular HGB Conc 30.8 g/dl (31.0-35.0); Mean Corpuscular Hemoglobin 22.5 pg (27.0-33.0); Mean Corpuscular Volume 73.2 fL (80-98); Mean Platelet Volume 11.3 fL (9.4-12.3); Platelet Count 426 X10*3/uL (160-400); Red Blood Count 3.73 X10*6/uL (4.20-5.50); Red Cell Distribution Width 15.9 % (11.0-16.0); White Blood Count 6.4 X10*3/uL (4.8-10.8)
[2021-05-08 06:31] LABS: Anion Gap 10 (12-20); Blood Urea Nitrogen 11 mg/dL (9-16); Calcium 8.3 mg/dL (8.4-10.2); Carbon Dioxide 25 mmol/L (22-29); Chloride 106 mmol/L (96-108); Creatinine Clr Calc Pharmacy 67.3; Estimated Glomerular Filt Rate > 60; Glucose Fasting 255 mg/dL (60-99); Potassium 4.2 mmol/L (3.3-5.1); Sodium 137 mmol/L (135-145)
[2021-05-08 07:16] LABS: Glucose, Whole Blood 250 mg/dL (60-115)
[2021-05-08 08:31] LABS: Magnesium 1.9 mg/dL (1.6-2.6); Phosphorus 3.2 mg/dL (2.7-4.5)
[2021-05-08 09:23] LABS: Vancomycin Trough 15.7 mcg/mL (10.0-20.0)
--- NOTE | 2021-05-08 09:57 | HE.PHANOTE ---
Pharmacy Note- Vancomycin Dosing Addendum Decreased dose since trough jumped from 7.6 to 15.7 after only 3 doses. Patient has a lower cr, potentially could be due to being on chronic TPN. Loading dose was likely necessary to achieve an adequate trough, will decrease dose to 1000 mg q12 and repeat level in two doses. Sarah Saldana PharmD
[2021-05-08] MEDS: Insulin Lispro 100 UNIT/ML 3 ML VIAL SUBCUT ×3 (09:59→20:57)
[2021-05-08] MEDS: 0.9 % Sodium Chloride Flush 3 ML SYRINGE IVFLUSH ×3 (10:00→21:04)
[2021-05-08] MEDS: vancomycin HCL 1,000 MG in 0.9 % Sodium Chloride 250 ML 270 MG IV ×2 (10:42→22:02)
--- NOTE | 2021-05-08 11:00 | MHC.CLN ---
Addendum entered by Isabel Painting, RD 05/08/21 14:46: PICC TO BE REMOVED TODAY R/T QUESTION OF INFECTION RECOMMEND PPN; D10AA4.25 AT 65ML/HR WITH 10ML OF 20% LIPIDS (X24HRS) TO PROVIDE 1276KCALS (28KCALS/KG), 66G PROTEIN (1.5G/KG) DISCUSSED PPN WITH PHARMACY Original Note: F/U DIET RX: F/L-WILL ADD ENSURE TO INCREASE KCALS PT RECEIVING D15AA5 AT 55ML/HR WITH 13ML OF 20% LIPIDS (X12HRS) PROVIDES 1249 TOTAL KCALS (28KCALS/KG), 66G PROTEIN (1.5G/KG) REVIEWED LABS; DISCUSSED WITH PHARMACY REPLETE LYTES NEEDED, MONITOR TRIGS
[2021-05-08 11:21] LABS: Glucose, Whole Blood 268 mg/dL (60-115)
--- NOTE | 2021-05-08 12:02 | HO.PM.IMPN ---
Subjective Subjective Date of Service: 05/08/21 Interval History: the patient was seen and evaluated this morning Laying in bed, feels some improvement but still complaining of weakness Denies any fever, chills or chest pain Still complaining of abdominal pain on and of No reported other overnight events. Systemic review: No fever, chills but reports generalized weakness No chest pain, palpitation No shortness of breath or coughing Abdominal pain with no associated nausea or vomiting No urinary symptoms No any rash or wounds Physical Exam Vital Signs: Vital Signs: Last Vital Signs Temp 98 F 05/08/21 11:03 Pulse 91 05/08/21 11:03 Resp 18 05/08/21 11:03 BP 109/49 L 05/08/21 11:03 Pulse Ox 97 05/08/21 11:03 Body Mass Index 22.1 Const: Other: Constitutional : Alert, oriented, not in distress Neck : Normal inspection, Supple Cardiovascular : RRR, S1 S2, no lower extremity edema, RUE PICC line in place with no surrounding erythema or drainage Respiratory : Good bilateral air entry, no crackles, wheezes or rhonchi Gastrointestinal: soft, lax, Normal bowel sounds, mild generalized tenderness with palpation Skin : Warm, Dry Neurological : Alert & oriented x3, No focal deficit Objective Data Active Medications Acetaminophen (Acetaminophen 325 Mg Tablet) 650 mg PO Q6H PRN PRN Reason: pain Last Admin: 05/07/21 17:05 Dose: 650 mg Documented by: CHICOIC Benzonatate (Benzonatate 100 Mg Capsule) 100 mg PO TID PRN PRN Reason: Cough Last Admin: 05/05/21 23:31 Dose: 100 mg Documented by: ANDALLYSON Dextrose (Dextrose 50 % 25 Gm/50 Ml Vial) 25 gm IVPUSH Q15M PRN; Protocol PRN Reason: per Hypoglycemia Standing Ord. Glucose (Glucose Gel 15 Gm Gel..Gram.) 15 gm PO Q15M PRN; Protocol PRN Reason: per Hypoglycemia Standing Ord. Levofloxacin (Levaquin) 500 mg in 100 mls @ 100 mls/hr IV Q24H [facility] Last Infusion: 05/07/21 22:45 Dose: 0 mls/hr Documented by: ANTOIC Potassium Chloride 28 meq/Sodium Chloride 92 meq/Magnesium Sulfate 14 meq/Calcium Gluconate 5 meq/Sodium Acetate 10 meq/ Sodium Phosphate 6 mmol/Multivitamins 10 ml/ Trace Metals 1 ml/ Amino Acids/Dextrose 1,069.2526 mls @ 55 mls/hr IVCONT DAILY@1800 [facility] Stop: 05/08/21 13:27 Last Admin: 05/07/21 18:55 Dose: 55 mls/hr Documented by: ELIANA Potassium Chloride 28 meq/Sodium Chloride 92 meq/Magnesium Sulfate 14 meq/Calcium Gluconate 5 meq/Sodium Acetate 10 meq/ Sodium Phosphate 6 mmol/ Amino Acids/Dextrose 248 mls @ 55 mls/hr IVCONT DAILY@1800 [facility] Stop: 05/08/21 17:59 Vancomycin HCl 1,000 mg/ (Sodium Chloride) 270 mls @ 270 mls/hr IV Q12H [facility] Last Admin: 05/08/21 10:42 Dose: 270 mls/hr Documented by: SHOBHA Insulin Human Lispro (Insulin Lispro 100 Unit/Ml 3 Ml Vial) 0 unit SUBCUT QIDACHS [facility]; Protocol Last Admin: 05/08/21 09:59 Dose: 4 unit Documented by: ELIANA Melatonin (Melatonin 3 Mg Tablet) 6 mg PO BEDTIME PRN PRN Reason: Insomnia Pharmacy Consult (Consult Rx Perform Med Rec) 1 each MISCELLANE ONCE PRN PRN Reason: Consult order Pharmacy Consult (Consult Rx Vancomycin Dosing) 1 each MISCELLANE DAILY PRN PRN Reason: Consult order Sodium Chloride (0.9 % Sodium Chloride Flush 3 Ml Syringe) 3 ml IVFLUSH QSHIFT [facility] Last Admin: 05/08/21 10:00 Dose: 3 ml Documented by: ELIANA Labs CBC & Chem 7: 05/08/21 05:40 05/08/21 05:40 Labs: Laboratory Results - last 24 hr 05/07/21 05/07/21 05/07/21 09:43 16:38 19:19 MCV MCH MCHC RDW Plt Count MPV Absolute Nucleated RBC Nucleated RBC % (auto) Anion Gap Estim Creat Clear Calc Estimated GFR POC Glucose 238 H Fasting Glucose Lactic Acid 1.2 Calcium Phosphorus 2.7 Magnesium 1.9 Albumin Vancomycin Trough 05/07/21 05/08/21 05/08/21 21:16 05:40 05:40 MCV 73.2 L MCH 22.5 L MCHC 30.8 L RDW 15.9 Plt Count 426 H MPV 11.3 Absolute Nucleated RBC 0.000 Nucleated RBC % (auto) 0.0 Anion Gap 10 L Estim Creat Clear Calc 67.3 Estimated GFR > 60 POC Glucose 187 H Fasting Glucose 255 H Lactic Acid Calcium 8.3 L Phosphorus 3.2 Magnesium 1.9 Albumin 3.0 L Vancomycin Trough 05/08/21 05/08/21 05/08/21 06:55 07:58 11:07 MCV MCH MCHC RDW Plt Count MPV Absolute Nucleated RBC Nucleated RBC % (auto) Anion Gap Estim Creat Clear Calc Estimated GFR POC Glucose 250 H 268 H Fasting Glucose Lactic Acid Calcium Phosphorus Magnesium Albumin Vancomycin Trough 15.7 Microbiology Microbiology Results: Microbiology 05/06/21 06:36 Blood Culture - Preliminary Blood - Venous Gram positive cocci 05/06/21 06:33 Blood Culture - Preliminary Blood - Venous Gram positive cocci 05/03/21 19:24 Blood Culture - Final Blood - Venous Staphylococcus lugdunensis Staphylococcus epidermidis 05/03/21 18:22 Blood Culture - Final Blood - Venous Staphylococcus lugdunensis Staphylococcus epidermidis Assessment and Plan (1) Bacteremia: Status: Acute (2) On total parenteral nutrition: Status: Acute Assessment and Plan: ?66-year-old female with a past medical history of diabetes, history of ovarian on chemo; recent presentation to [facility] for hematuria status post cystoscopy on last Friday; has been having feeding difficulties, reduced oral intake; patient is on TPN via midline [facility]; plan for abdominal surgery; presented with a chief complaint abdominal pain.? CT abdomen showed possible obstruction Abdominal pain 2/2 SBO resolved, but high risk for recurrence CT scan shows likely recurrence of pelvic cancer, carcinomatosis continue liquids, continue TPN, monitor electrolytes staph bacteremia now 2/2, staph lugdunesis and epidermidisi Repeat blood cultures cotninue vanco to remove picc today Id input appreciated, removed take and treated with 4 weeks of IV vancomycin Might need ECHO if repeat +ve after removal of PICC ovarian cancer with metastatic disease outpatient follow up at [facility] Diabetes Insulin sliding scale, monitor poc DVT prophylaxis SCD boots (hold pharmacologic agent given concerns repeat hematuria) Quality Stroke Does the patient have a stroke diagnosis?: No VTE Prior VTE?: No VTE Risk Level:: Medical - moderate - high VTE Device Contraindication: N/A - Device Ordered VTE Drug Contraindication: Treatment Not Tolerated
[2021-05-08 16:23] LABS: Glucose, Whole Blood 98 mg/dL (60-115)
[2021-05-08] MEDS: Fat Emulsions 20% 250 ML 10 ML IVCONT (17:54)
[2021-05-08 20:51] LABS: Glucose, Whole Blood 198 mg/dL (60-115)
[2021-05-08] MEDS: levoFLOXacin/D5W 500 MG/100 ML PIGGYBACK 100 MG IV (20:58)
[2021-05-09 03:18] VITALS: BP 103/45; PULSE 80; RESP 18; TEMP 36.5; O2SAT 99
[2021-05-09 06:00] VITALS: BMI 20.7
[2021-05-09] MEDS: Fat Emulsions 20% 250 ML 10 ML IVCONT ×2 (06:17→17:42)
[2021-05-09 06:40] LABS: Hematocrit 26.3 % (37-47); Hemoglobin 8.1 g/dl (12.0-16.0); Mean Corpuscular HGB Conc 30.8 g/dl (31.0-35.0); Mean Corpuscular Hemoglobin 22.3 pg (27.0-33.0); Mean Corpuscular Volume 72.5 fL (80-98); Mean Platelet Volume 10.3 fL (9.4-12.3); Platelet Count 471 X10*3/uL (160-400); Red Blood Count 3.63 X10*6/uL (4.20-5.50); Red Cell Distribution Width 15.9 % (11.0-16.0); White Blood Count 9.3 X10*3/uL (4.8-10.8)
[2021-05-09 06:42] LABS: Anion Gap 12 (12-20); Blood Urea Nitrogen 10 mg/dL (9-16); Calcium 8.4 mg/dL (8.4-10.2); Carbon Dioxide 24 mmol/L (22-29); Chloride 103 mmol/L (96-108); Creatinine Clr Calc Pharmacy 67.3; Estimated Glomerular Filt Rate > 60; Glucose Random 230 mg/dL (60-115); Potassium 4.4 mmol/L (3.3-5.1); Sodium 135 mmol/L (135-145)
[2021-05-09 07:51] VITALS: BP 109/44; PULSE 88; RESP 18; TEMP 37.3; O2SAT 98
[2021-05-09 07:58] LABS: Glucose, Whole Blood 226 mg/dL (60-115)
[2021-05-09] MEDS: vancomycin HCL 1,000 MG in 0.9 % Sodium Chloride 250 ML 270 MG IV (08:14)
[2021-05-09] MEDS: Insulin Lispro 100 UNIT/ML 3 ML VIAL SUBCUT ×3 (08:14→22:15)
[2021-05-09] MEDS: 0.9 % Sodium Chloride Flush 3 ML SYRINGE IVFLUSH ×2 (08:14→17:06)
[2021-05-09 08:18] LABS: Magnesium 1.7 mg/dL (1.6-2.6); Triglycerides 201 mg/dL
[2021-05-09] MEDS: Acetaminophen 325 MG TABLET 650 MG PO ×2 (08:21→17:33)
[2021-05-09 10:32] LABS: Vancomycin Trough 47.4 mcg/mL (10.0-20.0)
[2021-05-09 11:12] VITALS: BP 94/48; PULSE 87; RESP 18; TEMP 36.1; O2SAT 99
[2021-05-09 11:22] LABS: Glucose, Whole Blood 230 mg/dL (60-115)
--- NOTE | 2021-05-09 11:22 | MHC.CM.PN ---
Per ROUNDS discussion, Patient is not yet medically cleared for dc (TPN, IV Vanco, cultures still positive).Home/resume services is the goal for dc and CM will follow for possible need to adjust the dc plan.
--- NOTE | 2021-05-09 11:23 | MHC.CLN ---
F/U PT CONTINUES TO RECEIVE PPN; D10AA4.25 AT 65ML/HR WITH 10ML OF 20% LIPIDS (X24HRS) TO PROVIDE 1276KCALS (28KCALS/KG), 66G PROTEIN (1.5G/KG) REPLETE LYTES NEEDED; DISCUSSED PPN WITH PHARMACY DIET RX: F/L-APPROPRIATE PT ALSO RECEIVING ENSURE TID PROVIDES 1020KCALS, 60G PROTEIN WITH 100% ACCEPTANCE/INTAKE MONITOR PO INTAKE CLOSELY
[2021-05-09 15:55] VITALS: BP 91/40; PULSE 88; RESP 18; TEMP 37; O2SAT 95
[2021-05-09 16:22] LABS: Glucose, Whole Blood 143 mg/dL (60-115)
--- NOTE | 2021-05-09 16:23 | P.PNIM_ITS ---
Subjective Subjective Date of Service: 05/09/21 Interval History: the patient was seen and evaluated this morning Laying in bed, reports mild improvement but overall still weak and tired Denies any fever, chills or chest pain Still complaining of abdominal pain No reported other overnight events. Systemic review: No fever, chills but reports generalized weakness No chest pain, palpitation No shortness of breath or coughing Abdominal pain with no associated nausea or vomiting No urinary symptoms No any rash or wounds Physical Exam Vital Signs: Vital Signs: Last Vital Signs Temp 98.6 F 05/09/21 15:55 Pulse 88 05/09/21 15:55 Resp 18 05/09/21 15:55 BP 91/40 L 05/09/21 15:55 Pulse Ox 95 05/09/21 15:55 Body Mass Index 20.7 Const: Other: Constitutional : Alert, oriented, not in distress Neck : Normal inspection, Supple Cardiovascular : RRR, S1 S2, no lower extremity edema, no erythema at the side of removed PICC line Respiratory : Good bilateral air entry, no crackles, wheezes or rhonchi Gastrointestinal: soft, lax, Normal bowel sounds, mild generalized tenderness with palpation Skin : Warm, Dry Neurological : Alert & oriented x3, No focal deficit Objective Data Active Medications Acetaminophen (Acetaminophen 325 Mg Tablet) 650 mg PO Q6H PRN PRN Reason: pain Last Admin: 05/09/21 08:21 Dose: 650 mg Documented by: JOEY Benzonatate (Benzonatate 100 Mg Capsule) 100 mg PO TID PRN PRN Reason: Cough Last Admin: 05/05/21 23:31 Dose: 100 mg Documented by: PARDEEP Dextrose (Dextrose 50 % 25 Gm/50 Ml Vial) 25 gm IVPUSH Q15M PRN; Protocol PRN Reason: per Hypoglycemia Standing Ord. Glucose (Glucose Gel 15 Gm Gel..Gram.) 15 gm PO Q15M PRN; Protocol PRN Reason: per Hypoglycemia Standing Ord. Vancomycin HCl 1,000 mg/ (Sodium Chloride) 270 mls @ 270 mls/hr IV Q12H [facility] Last Infusion: 05/09/21 11:40 Dose: 0 mls/hr Documented by: JOEY Multivitamins 10 ml/ Trace Metals 1 ml/ Amino Acids/Electrolytes/Dextrose 1,560 mls @ 65 mls/hr IV DAILY@1800 [facility] Stop: 05/09/21 17:59 Last Infusion: 05/08/21 23:06 Dose: 65 mls/hr Documented by: SAM Fat Emulsion Intravenous (Intralipid) 120 mls @ 10 mls/hr IVCONT BID@0600,1800 [facility] Stop: 05/09/21 17:59 Last Admin: 05/09/21 06:17 Dose: 10 mls/hr Documented by: ARINA Multivitamins 10 ml/ Trace Metals 1 ml/ Amino Acids/Electrolytes/Dextrose 1,560 mls @ 65 mls/hr IV DAILY@1800 [facility] Stop: 05/10/21 17:59 Fat Emulsion Intravenous (Intralipid) 120 mls @ 10 mls/hr IVCONT BID@0600,1800 [facility] Stop: 05/10/21 17:59 Insulin Human Lispro (Insulin Lispro 100 Unit/Ml 3 Ml Vial) [facility] Protocol Last Admin: 05/09/21 12:25 Dose: 4 unit Documented by: JOEY Melatonin (Melatonin 3 Mg Tablet) 6 mg PO BEDTIME PRN PRN Reason: Insomnia Pharmacy Consult (Consult Rx Perform Med Rec) 1 each MISCELLANE ONCE PRN PRN Reason: Consult order Pharmacy Consult (Consult Rx Vancomycin Dosing) 1 each MISCELLANE DAILY PRN PRN Reason: Consult order Sodium Chloride (0.9 % Sodium Chloride Flush 3 Ml Syringe) 3 ml IVFLUSH [facility] Last Admin: 05/09/21 08:14 Dose: 3 ml Documented by: JOEY Labs CBC & Chem 7: 05/09/21 05:47 05/09/21 05:47 Labs: Laboratory Results - last 24 hr 05/08/21 05/08/21 05/09/21 16:16 20:46 05:47 MCV 72.5 L MCH 22.3 L MCHC 30.8 L RDW 15.9 Plt Count 471 H MPV 10.3 Absolute Nucleated RBC 0.000 Nucleated RBC % (auto) 0.0 Anion Gap Estim Creat Clear Calc Estimated GFR POC Glucose 98 198 H Random Glucose Calcium Phosphorus Magnesium Albumin Triglycerides Vancomycin Trough 05/09/21 05/09/21 05/09/21 05:47 07:53 09:26 MCV MCH MCHC RDW Plt Count MPV Absolute Nucleated RBC Nucleated RBC % (auto) Anion Gap 12 Estim Creat Clear Calc 67.3 Estimated GFR > 60 POC Glucose 226 H Random Glucose 230 H Calcium 8.4 Phosphorus 4.0 Magnesium 1.7 Albumin 3.0 L Triglycerides 201 Vancomycin Trough 47.4 H* 05/09/21 05/09/21 11:12 16:18 MCV MCH MCHC RDW Plt Count MPV Absolute Nucleated RBC Nucleated RBC % (auto) Anion Gap Estim Creat Clear Calc Estimated GFR POC Glucose 230 H 143 H Random Glucose Calcium Phosphorus Magnesium Albumin Triglycerides Vancomycin Trough Microbiology Microbiology Results: Microbiology 05/06/21 06:33 Blood Culture - Preliminary Blood - Venous Coag negative Staphylococcus 05/08/21 05:40 Blood Culture - Preliminary Blood - Venous Prelim: GPC Gram Stain only 05/08/21 05:40 Blood Culture - Preliminary Blood - Venous Prelim: GPC Gram Stain only 05/06/21 06:36 Blood Culture - Preliminary Blood - Venous Coag negative Staphylococcus Assessment and Plan (1) Bacteremia: Status: Acute (2) Abdominal pain: Status: Acute Assessment and Plan: ?66-year-old female with a past medical history of diabetes, history of ovarian on chemo; recent presentation to [facility] for hematuria status post cystoscopy on last Friday; has been having feeding difficulties, reduced oral intake; patient is on TPN via midline [facility]; plan for abdominal surgery; presented with a chief complaint abdominal pain.? CT abdomen showed possible obstruction Abdominal pain 2/2 SBO resolved, but high risk for recurrence CT scan shows likely recurrence of pelvic cancer, carcinomatosis continue liquids, continue TPN, monitor electrolytes staph bacteremia now 2/2, staph lugdunesis and epidermidisi Repeat blood cultures positive, sent new one fermin vanco PICC removed Id input appreciated, removed take and treated with 4 weeks of IV vancomycin Might need ECHO if repeat +ve after removal of PICC ovarian cancer with metastatic disease outpatient [facility] Diabetes Insulin sliding scale, monitor poc DVT prophylaxis SCD boots (hold pharmacologic agent given concerns repeat hematuria) Quality Stroke Does the patient have a stroke diagnosis?: No VTE Prior VTE?: No VTE Risk Level:: Medical - moderate - high VTE Device Contraindication: N/A - Device Ordered VTE Drug Contraindication: Treatment Not Tolerated
[2021-05-09 20:00] VITALS: BP 98/48; PULSE 95; RESP 18; TEMP 36.6; O2SAT 97
[2021-05-09 20:35] LABS: Glucose, Whole Blood 281 mg/dL (60-115)
[2021-05-09 21:28] LABS: Vancomycin Trough 8.6 mcg/mL (10.0-20.0)
[2021-05-09] MEDS: vancomycin HCL 1,250 MG in 0.9 % Sodium Chloride 250 ML 166.67 MG IV (22:16)
[2021-05-09 23:44] VITALS: BP 96/45; PULSE 84; RESP 18; TEMP 36.9; O2SAT 98
[2021-05-10 04:00] VITALS: BP 97/46; PULSE 86; RESP 18; TEMP 531.8; TEMP 989.3; O2SAT 94
[2021-05-10 06:00] VITALS: BMI 20.9
--- NOTE | 2021-05-10 06:50 | PC.NURSE ---
IV site to right forearm noted to be occluded and surrounding tissue reddened. IV removed and ice pack placed on site. New 20G inserted to left forearm.?
[2021-05-10 07:23] LABS: Glucose, Whole Blood 234 mg/dL (60-115)
[2021-05-10 07:43] VITALS: BP 102/49; PULSE 88; RESP 18; TEMP 37; O2SAT 100
[2021-05-10] MEDS: Insulin Lispro 100 UNIT/ML 3 ML VIAL SUBCUT ×3 (07:55→22:42)
[2021-05-10] MEDS: Fat Emulsions 20% 250 ML 10 ML IVCONT ×2 (07:55→18:52)
[2021-05-10 09:32] LABS: Creatinine Clr Calc Pharmacy 65.1; Estimated Glomerular Filt Rate > 60
[2021-05-10] MEDS: vancomycin HCL 1,250 MG in 0.9 % Sodium Chloride 250 ML 166.67 MG IV (10:51)
[2021-05-10] MEDS: Phenazopyridine HCL 100 MG TABLET PO ×2 (10:51→16:02)
[2021-05-10 10:55] LABS: Glucose, Whole Blood 159 mg/dL (60-115)
[2021-05-10 11:25] VITALS: BP 111/52; PULSE 90; RESP 18; TEMP 36.7; O2SAT 98
[2021-05-10 12:05] LABS: Anion Gap 15 (12-20); Blood Urea Nitrogen 12 mg/dL (9-16); Calcium 8.8 mg/dL (8.4-10.2); Carbon Dioxide 24 mmol/L (22-29); Chloride 101 mmol/L (96-108); Glucose Random 271 mg/dL (60-115); Potassium 4.7 mmol/L (3.3-5.1); Sodium 135 mmol/L (135-145); Triglycerides 168 mg/dL
--- NOTE | 2021-05-10 12:18 | MHC.CLN ---
F/U PT CONTINUES TO RECEIVE PPN; D10AA4.25 AT 65ML/HR WITH 10ML OF 20% LIPIDS (X24HRS) TO PROVIDE 1276KCALS (28KCALS/KG), 66G PROTEIN (1.5G/KG) REPLETE LYTES NEEDED; REVIEWED LABS AND DISCUSSED WITH PHARMACY DIET RX: F/L-APPROPRIATE PT ALSO RECEIVING ENSURE TID PROVIDES 1020KCALS, 60G PROTEIN (WITH 100% ACCEPTANCE/INTAKE) MONITOR PO INTAKE CLOSELY
--- NOTE | 2021-05-10 14:34 | HO.PM.IMPN ---
Subjective Subjective Date of Service: 05/10/21 Interval History: the patient was seen and evaluated this morning Laying in bed, reports mild improvement but overall still weak Denies any fever, chills or chest pain complaining of abdominal pain No reported other overnight events. Systemic review: No fever, chills but reports generalized weakness No chest pain, palpitation No shortness of breath or coughing Abdominal pain with no associated nausea or vomiting No urinary symptoms No any rash or wounds Physical Exam Vital Signs: Vital Signs: Last Vital Signs Temp 98.0 F 05/10/21 11:25 Pulse 90 05/10/21 11:25 Resp 18 05/10/21 11:25 BP 111/52 L 05/10/21 11:25 Pulse Ox 98 05/10/21 11:25 Body Mass Index 20.9 Const: Other: Constitutional : Alert, oriented, not in distress Neck : Normal inspection, Supple Cardiovascular : RRR, S1 S2, no lower extremity edema, no erythema at the side of removed PICC line Respiratory : Good bilateral air entry, no crackles, wheezes or rhonchi Gastrointestinal: soft, lax, Normal bowel sounds, mild generalized tenderness with palpation Skin : Warm, Dry Neurological : Alert & oriented x3, No focal deficit Objective Data Active Medications Acetaminophen (Acetaminophen 325 Mg Tablet) 650 mg PO Q6H PRN PRN Reason: pain Last Admin: 05/09/21 17:33 Dose: 650 mg Documented by: JOEY Benzonatate (Benzonatate 100 Mg Capsule) 100 mg PO TID PRN PRN Reason: Cough Last Admin: 05/05/21 23:31 Dose: 100 mg Documented by: PARDEEP Dextrose (Dextrose 50 % 25 Gm/50 Ml Vial) 25 gm IVPUSH Q15M PRN; Protocol PRN Reason: per Hypoglycemia Standing Ord. Glucose (Glucose Gel 15 Gm Gel..Gram.) 15 gm PO Q15M PRN; Protocol PRN Reason: per Hypoglycemia Standing Ord. Multivitamins 10 ml/ Trace Metals 1 ml/ Amino Acids/Electrolytes/Dextrose 1,560 mls @ 65 mls/hr IV DAILY@1800 [facility] Stop: 05/10/21 17:59 Last Infusion: 05/10/21 12:06 Dose: 0 mls/hr Documented by: KYRA Fat Emulsion Intravenous (Intralipid) 120 mls @ 10 mls/hr IVCONT BID@0600,1800 [facility] Stop: 05/10/21 17:59 Last Infusion: 05/10/21 12:06 Dose: 0 mls/hr Documented by: KYRA Vancomycin HCl 1,250 mg/ (Sodium Chloride) 250 mls @ 166.667 mls/hr IV Q12H [facility] Last Infusion: 05/10/21 11:09 Dose: 0 mls/hr Documented by: KYRA Multivitamins 10 ml/ Trace Metals 1 ml/ Amino Acids/Electrolytes/Dextrose 1,560 mls @ 65 mls/hr IV DAILY@1800 [facility] Stop: 05/11/21 17:59 Fat Emulsion Intravenous (Intralipid) 120 mls @ 10 mls/hr IVCONT BID@0600,1800 [facility] Stop: 05/11/21 17:59 Insulin Human Lispro (Insulin Lispro 100 Unit/Ml 3 Ml Vial) 0 unit SUBCUT QIDACHS [facility]; Protocol Last Admin: 05/10/21 12:01 Dose: 2 unit Documented by: KYRA Melatonin (Melatonin 3 Mg Tablet) 6 mg PO BEDTIME PRN PRN Reason: Insomnia Pharmacy Consult (Consult Rx Perform Med Rec) 1 each MISCELLANE ONCE PRN PRN Reason: Consult order Pharmacy Consult (Consult Rx Vancomycin Dosing) 1 each MISCELLANE DAILY PRN PRN Reason: Consult order Phenazopyridine HCl (Phenazopyridine Hcl 100 Mg Tablet) 100 mg PO TIDWM [facility] Stop: 05/11/21 17:01 Last Admin: 05/10/21 10:51 Dose: 100 mg Documented by: KYRA Sodium Chloride (0.9 % Sodium Chloride Flush 3 Ml Syringe) [facility] Last Admin: 05/10/21 08:06 Dose: Not Given Documented by: KYRA Non-Admin Reason: IV Running Labs CBC & Chem 7: 05/09/21 05:47 05/10/21 09:05 Labs: Laboratory Results - last 24 hr 05/09/21 05/09/21 05/09/21 16:18 20:22 20:56 Anion Gap Estim Creat Clear Calc Estimated GFR POC Glucose 143 H 281 H Random Glucose Calcium Triglycerides Vancomycin Trough 8.6 L 05/10/21 05/10/21 05/10/21 07:20 09:05 09:05 Anion Gap 15 Cancelled Estim Creat Clear Calc 65.1 Cancelled Estimated GFR > 60 Cancelled POC Glucose 234 H Random Glucose 271 H Cancelled Calcium 8.8 Cancelled Triglycerides 168 Cancelled Vancomycin Trough 05/10/21 10:51 Anion Gap Estim Creat Clear Calc Estimated GFR POC Glucose 159 H Random Glucose Calcium Triglycerides Vancomycin Trough Microbiology Microbiology Results: Microbiology 05/08/21 05:40 Blood Culture - Preliminary Blood - Venous Staphylococcus species 05/08/21 05:40 Blood Culture - Preliminary Blood - Venous Staphylococcus species 05/09/21 09:27 Blood Culture - Preliminary Blood - Venous No growth after 24 hours. 05/09/21 09:25 Blood Culture - Preliminary Blood - Venous No growth after 24 hours. 05/06/21 06:36 Blood Culture - Final Blood - Venous Staphylococcus epidermidis 05/06/21 06:33 Blood Culture - Final Blood - Venous Staphylococcus epidermidis Assessment and Plan (1) Bacteremia: Status: Acute (2) On total parenteral nutrition: Status: Acute Assessment and Plan: ?66-year-old female with a past medical history of diabetes, history of ovarian on chemo; recent presentation to [facility] for hematuria status post cystoscopy on last Friday; has been having feeding difficulties, reduced oral intake; patient is on TPN via midline [facility]; plan for abdominal surgery; presented with a chief complaint abdominal pain.? CT abdomen showed possible obstruction Abdominal pain 2/2 SBO resolved, but high risk for recurrence CT scan shows likely recurrence of pelvic cancer, carcinomatosis continue liquids, continue TPN, monitor electrolytes staph bacteremia now 2/2, staph lugdunesis and epidermidisi Repeat blood cultures positive, sent new one fermin coopero PICC removed Id input appreciated, removed take and treated with 4 weeks of IV vancomycin Might need ECHO if repeat +ve after removal of PICC ovarian cancer with metastatic disease outpatient follow up at [facility] Diabetes Insulin sliding scale, monitor poc DVT prophylaxis SCD boots (hold pharmacologic agent given concerns repeat hematuria) Quality Stroke Does the patient have a stroke diagnosis?: No VTE Prior VTE?: No VTE Risk Level:: Medical - moderate - high VTE Device Contraindication: N/A - Device Ordered VTE Drug Contraindication: Treatment Not Tolerated
[2021-05-10 15:33] VITALS: BP 100/44; PULSE 93; RESP 18; TEMP 36.6; O2SAT 99
[2021-05-10 16:01] LABS: Glucose, Whole Blood 90 mg/dL (60-115)
[2021-05-10] MEDS: 0.9 % Sodium Chloride Flush 3 ML SYRINGE IVFLUSH (16:03)
[2021-05-10 19:32] VITALS: BP 98/46; PULSE 90; RESP 16; TEMP 37.1; O2SAT 95
[2021-05-10 20:27] LABS: Glucose, Whole Blood 199 mg/dL (60-115)
[2021-05-10] MEDS: vancomycin HCL 1,250 MG in 0.9 % Sodium Chloride 250 ML 166.6 MG IV (22:42)
[2021-05-10] MEDS: Acetaminophen 325 MG TABLET 650 MG PO (23:09)
[2021-05-11] VITALS (7 sets, daily range): BP systolic 98–112; BP diastolic 45–54; PULSE 84–94; RESP 18–20; TEMP 36.1–37.2; O2SAT 95–99; BMI 21.3
[2021-05-11] MEDS: Fat Emulsions 20% 250 ML 10 ML IVCONT (06:14)
[2021-05-11 07:14] LABS: Glucose, Whole Blood 206 mg/dL (60-115)
[2021-05-11] MEDS: Insulin Lispro 100 UNIT/ML 3 ML VIAL SUBCUT ×2 (08:17→11:27)
[2021-05-11] MEDS: 0.9 % Sodium Chloride Flush 3 ML SYRINGE IVFLUSH ×3 (08:17→21:01)
[2021-05-11] MEDS: Phenazopyridine HCL 100 MG TABLET PO ×3 (08:18→18:28)
[2021-05-11 09:11] LABS: Anion Gap 13 (12-20); Blood Urea Nitrogen 11 mg/dL (9-16); Calcium 8.5 mg/dL (8.4-10.2); Carbon Dioxide 26 mmol/L (22-29); Chloride 103 mmol/L (96-108); Creatinine Clr Calc Pharmacy 66.2; Estimated Glomerular Filt Rate > 60; Glucose Random 290 mg/dL (60-115); Potassium 4.4 mmol/L (3.3-5.1); Sodium 138 mmol/L (135-145)
[2021-05-11 09:52] LABS: Albumin Level 3.2 g/dL (3.5-5.0); Magnesium 1.7 mg/dL (1.6-2.6); Phosphorus 3.9 mg/dL (2.7-4.5); Triglycerides 159 mg/dL
[2021-05-11 09:58] LABS: Vancomycin Trough 15.4 mcg/mL (10.0-20.0)
[2021-05-11 11:12] LABS: Glucose, Whole Blood 197 mg/dL (60-115)
--- NOTE | 2021-05-11 11:23 | HO.PM.IMPN ---
Subjective Subjective Date of Service: 05/11/21 Interval History: Seen in f/u for staph bacteremia, Systemic review: No fever, chills but reports generalized weakness No chest pain, palpitation No shortness of breath or coughing Abdominal pain with no associated nausea or vomiting No urinary symptoms No any rash or wounds Physical Exam Vital Signs: Vital Signs: Last Vital Signs Temp 97 F 05/11/21 11:06 Pulse 90 05/11/21 11:06 Resp 18 05/11/21 11:06 BP 102/50 L 05/11/21 11:06 Pulse Ox 99 05/11/21 11:06 Body Mass Index 21.3 Const: Other: Constitutional : Alert, oriented, not in distress Neck : Normal inspection, Supple Cardiovascular : RRR, S1 S2, no lower extremity edema, no erythema at the side of removed PICC line Respiratory : Good bilateral air entry, no crackles, wheezes or rhonchi Gastrointestinal: soft, lax, Normal bowel sounds, mild generalized tenderness with palpation Skin : Warm, Dry Neurological : Alert & oriented x3, No focal deficit Objective Data Active Medications Acetaminophen (Acetaminophen 325 Mg Tablet) 650 mg PO Q6H PRN PRN Reason: pain Last Admin: 05/10/21 23:09 Dose: 650 mg Documented by: JUAN Benzonatate (Benzonatate 100 Mg Capsule) 100 mg PO TID PRN PRN Reason: Cough Last Admin: 05/05/21 23:31 Dose: 100 mg Documented by: PARDEEP Dextrose (Dextrose 50 % 25 Gm/50 Ml Vial) 25 gm IVPUSH Q15M PRN; Protocol PRN Reason: per Hypoglycemia Standing Ord. Glucose (Glucose Gel 15 Gm Gel..Gram.) 15 gm PO Q15M PRN; Protocol PRN Reason: per Hypoglycemia Standing Ord. Vancomycin HCl 1,250 mg/ (Sodium Chloride) 250 mls @ 166.667 mls/hr IV Q12H [facility] Last Infusion: 05/11/21 00:15 Dose: 166.67 mls/hr Documented by: JUAN Multivitamins 10 ml/ Trace Metals 1 ml/ Amino Acids/Electrolytes/Dextrose 1,560 mls @ 65 mls/hr IV DAILY@1800 [facility] Stop: 05/11/21 17:59 Last Admin: 05/10/21 18:52 Dose: 65 mls/hr Documented by: KYRA Fat Emulsion Intravenous (Intralipid) 120 mls @ 10 mls/hr IVCONT BID@0600,1800 [facility] Stop: 05/11/21 17:59 Last Admin: 05/11/21 06:14 Dose: 10 mls/hr Documented by: JUAN Multivitamins 10 ml/ Trace Metals 1 ml/ Amino Acids/Electrolytes/Dextrose 1,560 mls @ 65 mls/hr IV DAILY@1800 [facility] Stop: 05/12/21 17:59 Fat Emulsion Intravenous (Intralipid) 120 mls @ 10 mls/hr IVCONT BID@0600,1800 [facility] Stop: 05/12/21 17:59 Insulin Human Lispro (Insulin Lispro 100 Unit/Ml 3 Ml Vial) [facility]; Protocol Last Admin: 05/11/21 08:17 Dose: 4 unit Documented by: KYRA Melatonin (Melatonin 3 Mg Tablet) 6 mg PO BEDTIME PRN PRN Reason: Insomnia Pharmacy Consult (Consult Rx Perform Med Rec) 1 each MISCELLANE ONCE PRN PRN Reason: Consult order Pharmacy Consult (Consult Rx Vancomycin Dosing) 1 each MISCELLANE DAILY PRN PRN Reason: Consult order Phenazopyridine HCl (Phenazopyridine Hcl 100 Mg Tablet) 100 mg PO TIDWM [facility] Stop: 05/11/21 17:01 Last Admin: 05/11/21 08:18 Dose: 100 mg Documented by: KYRA Sodium Chloride (0.9 % Sodium Chloride Flush 3 Ml Syringe) 3 ml IVFSH [facility] Last Admin: 05/11/21 08:17 Dose: 3 ml Documented by: KYRA Labs CBC & Chem 7: 05/09/21 05:47 05/11/21 08:51 Microbiology Microbiology Results: Microbiology 05/08/21 05:40 Blood Culture - Final Blood - Venous Staphylococcus epidermidis 05/08/21 05:40 Blood Culture - Final Blood - Venous Staphylococcus epidermidis 05/06/21 06:33 Blood Culture - Final Blood - Venous Staphylococcus epidermidis 05/09/21 09:27 Blood Culture - Preliminary Blood - Venous No growth after 24 hours. 05/09/21 09:25 Blood Culture - Preliminary Blood - Venous No growth after 24 hours. 05/06/21 06:36 Blood Culture - Final Blood - Venous Staphylococcus epidermidis Assessment and Plan (1) Bacteremia: Status: Acute (2) On total parenteral nutrition: Status: Acute Assessment and Plan: ?66-year-old female with a past medical history of diabetes, history of ovarian on chemo; recent presentation to [facility] for hematuria status post cystoscopy on last Friday; has been having feeding difficulties, reduced oral intake; patient is on TPN via midline [facility]; plan for abdominal surgery; presented with a chief complaint abdominal pain.? CT abdomen showed possible obstruction Abdominal pain d/t SBO that is now resolved, but high risk for recurrence CT scan shows likely recurrence of pelvic cancer, carcinomatosis continue liquids, continue TPN, monitor electrolytes staph bacteremia now 2/2, staph lugdunesis and epidermidisi Repeat blood cultures positive, has been receiving IV vanco and was to get a Picc line for this but declined this morning ovarian cancer with metastatic disease outpatient follow up at [facility] Diabetes Insulin sliding scale, monitor poc DVT prophylaxis SCD boots (hold pharmacologic agent given concerns repeat hematuria) Quality Stroke Does the patient have a stroke diagnosis?: No VTE Prior VTE?: No VTE Risk Level:: Medical - moderate - high VTE Device Contraindication: N/A - Device Ordered VTE Drug Contraindication: Treatment Not Tolerated
[2021-05-11] MEDS: vancomycin HCL 1,250 MG in 0.9 % Sodium Chloride 250 ML 166.67 MG IV (11:39)
--- NOTE | 2021-05-11 13:46 | MHC.CM.PN ---
Patient is not yet medically cleared for dc (TPN, IVABT). Home/resume home TPN and new IV ABT is the goal and CM will follow for possible need to adjust the dc plan.
--- NOTE | 2021-05-11 14:10 | MHC.CLN ---
F/U PT CONTINUES TO RECEIVE PPN; D10AA4.25 AT 65ML/HR WITH 10ML OF 20% LIPIDS (X24HRS) TO PROVIDE 1276KCALS (28KCALS/KG), 66G PROTEIN (1.5G/KG) REPLETE LYTES NEEDED; REVIEWED LABS AND DISCUSSED WITH PHARMACY DIET RX: F/L-APPROPRIATE VARIABLE PO INTAKE ON F/L PT ALSO RECEIVING ENSURE TID PROVIDES 1020KCALS, 60G PROTEIN (WITH 100% ACCEPTANCE/INTAKE) CONTINUE TO MONITOR PO INTAKE CLOSELY
--- NOTE | 2021-05-11 14:41 | MHC.CM.PN ---
Received message from [facility] re: TPN delivery on a weekend. Vendor is not able to deliver TPN this weekend. Pt is not medically cleared to d/c today per MD: D/C plans will be revisited on Friday, 05/14. Scripts and formulation for TPN may need to be updated on Friday. MD aware of plan. CM to follow for finalization of d/c plans
[2021-05-11 16:09] LABS: Glucose, Whole Blood 184 mg/dL (60-115)
--- NOTE | 2021-05-11 17:52 | P.PICC_ITS ---
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 Following completion of [place] Protocol the skin and soft tissues were anesthetized with 1% Lidocaine plain. Using ultrasound guidance, CEPHALIC vein access was obtained IN SINGLE ATTEMPT BY THIS RN. Over an 0.018 wire through peel-away sheath, a DOUBLE LUMEN, PASV, 5-PARAGUAYAN PICC line was positioned. Catheter length is 40 CM internal length, 0 CM external length, for a total trimmed length of 40 CM. The procedure was performed in [facility]. Tip verification was performed by Daysi Gonzalez with Sherladarius 3CG. Tip located in SVC. Ultrasound was used to document vein patency and for needle entry. A formal ultrasound picture and cardiac rhythm strip was recorded. Vascular Hand Endband Cutter has released the line for use and it is currently dressed with a StatLock, Tegaderm, and CHG disc. Verification has been performed for blood return and line patency. Arm Circumference: 25 CM Equipment: GEOLID POWERPICC SOLO Catheter Type: DOUBLE LUMEN, 5-PARAGUAYAN, PASV Lot #: [id number]
[2021-05-11 20:27] LABS: Glucose, Whole Blood 141 mg/dL (60-115)
[2021-05-11] MEDS: Acetaminophen 325 MG TABLET 650 MG PO (21:00)
[2021-05-11] MEDS: Melatonin 3 MG TABLET 6 MG PO (21:01)
[2021-05-11] MEDS: vancomycin HCL 1,250 MG in 0.9 % Sodium Chloride 250 ML 166.7 MG IV (21:06)
[2021-05-12 03:34] VITALS: BP 105/56; PULSE 85; RESP 16; TEMP 36.1; O2SAT 96
[2021-05-12 06:00] VITALS: BMI 21.5
[2021-05-12 06:59] VITALS: BP 99/50; PULSE 85; RESP 18; TEMP 35.5; O2SAT 96
[2021-05-12 07:24] LABS: Glucose, Whole Blood 103 mg/dL (60-115)
--- NOTE | 2021-05-12 09:07 | HO.PM.IMPN ---
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 Vanco associated nausea or vomiting No urinary symptoms No any rash or wounds Review of Systems No fever, chills but reports generalized weakness No chest pain, palpitation No shortness of breath or coughing Abdominal pain with no Physical Exam Vital Signs: Vital Signs: Last Vital Signs Temp 96 F L 05/12/21 06:59 Pulse 85 05/12/21 06:59 Resp 18 05/12/21 06:59 BP 99/50 L 05/12/21 06:59 Pulse Ox 96 05/12/21 06:59 Body Mass Index 21.5 Const: Other: Constitutional : Alert, oriented, not in distress Neck : Normal inspection, Supple Cardiovascular : RRR, S1 S2, no lower extremity edema, no erythema at the side of removed PICC line Respiratory : Good bilateral air entry, no crackles, wheezes or rhonchi Gastrointestinal: soft, lax, Normal bowel sounds, mild generalized tenderness with palpation Skin : Warm, Dry Neurological : Alert & oriented x3, No focal deficit Objective Data Active Medications Acetaminophen (Acetaminophen 325 Mg Tablet) 650 mg PO Q6H PRN PRN Reason: pain Last Admin: 05/11/21 21:00 Dose: 650 mg Documented by: LEISA Benzonatate (Benzonatate 100 Mg Capsule) 100 mg PO TID PRN PRN Reason: Cough Last Admin: 05/05/21 23:31 Dose: 100 mg Documented by: PARDEEP Dextrose (Dextrose 50 % 25 Gm/50 Ml Vial) 25 gm IVPUSH Q15M PRN; Protocol PRN Reason: per Hypoglycemia Standing Ord. Glucose (Glucose Gel 15 Gm Gel..Gram.) 15 gm PO Q15M PRN; Protocol PRN Reason: per Hypoglycemia Standing Ord. Vancomycin HCl 1,250 mg/ (Sodium Chloride) 250 mls @ 166.667 mls/hr IV Q12H [facility] Last Infusion: 05/11/21 22:40 Dose: 0 mls/hr Documented by: LEISA Insulin Human Lispro (Insulin Lispro 100 Unit/Ml 3 Ml Vial) 0 unit SUBCUT QIDACHS [facility]; Protocol Last Admin: 05/12/21 08:19 Dose: Not Given Documented by: JEFF Non-Admin Reason: No Insulin Coverage Melatonin (Melatonin 3 Mg Tablet) 6 mg PO BEDTIME PRN PRN Reason: Insomnia Last Admin: 05/11/21 21:01 Dose: 6 mg Documented by: LEISA Pharmacy Consult (Consult Rx Perform Med Rec) 1 each MISCELLANE ONCE PRN PRN Reason: Consult order Sodium Chloride (0.9 % Sodium Chloride Flush 3 Ml Syringe) 3 ml IVFLUSH QSHIFT MARY Last Admin: 05/11/21 21:01 Dose: 3 ml Documented by: LEISA Labs CBC & Chem 7: 05/09/21 05:47 05/11/21 08:51 Labs: Laboratory Results - last 24 hr 05/11/21 05/11/21 05/11/21 08:51 08:51 11:05 Anion Gap 13 Estim Creat Clear Calc 66.2 Estimated GFR > 60 POC Glucose 197 H Random Glucose 290 H Calcium 8.5 Phosphorus 3.9 Magnesium 1.7 Albumin 3.2 L Triglycerides 159 Vancomycin Trough 15.4 05/11/21 05/11/21 05/12/21 16:01 20:24 07:00 Anion Gap Estim Creat Clear Calc Estimated GFR POC Glucose 184 H 141 H 103 Random Glucose Calcium Phosphorus Magnesium Albumin Triglycerides Vancomycin Trough Microbiology Microbiology Results: Microbiology 05/09/21 09:27 Blood Culture - Preliminary Blood - Venous No growth after 48 hours. 05/09/21 09:25 Blood Culture - Preliminary Blood - Venous No growth after 48 hours. 05/08/21 05:40 Blood Culture - Final Blood - Venous Staphylococcus epidermidis 05/08/21 05:40 Blood Culture - Final Blood - Venous Staphylococcus epidermidis 05/06/21 06:33 Blood Culture - Final Blood - Venous Staphylococcus epidermidis Assessment and Plan (1) Bacteremia: Status: Acute (2) On total parenteral nutrition: Status: Acute Assessment and Plan: ?66-year-old female with a past medical history of diabetes, history of ovarian cancer on chemo; recent presentation to [facility] for hematuria status post cystoscopy; has been having feeding difficulties, reduced oral intake; patient was on TPN via midline from [facility]; plan for abdominal surgery later; presented here with abdominal pain.? CT abdomen showed possible obstruction Abdominal pain d/t SBO that is now resolved, but high risk for recurrence CT scan also shows likely recurrence of pelvic cancer, carcinomatosis -For now avoiding solid food -continue liquid diet - continue TPN, monitor electrolytes Staph Epi and Staph Lugdunensis bacteremia, positive samples from 05/03, 05/06 and . Sample from 05/09 negative, source likely prior picc line (removed) -ID advises [facility]ci IV Vanco, she was initially refusing IV Abx but now agreable. -New picc line inserted on 05/11 ovarian cancer with metastatic disease outpatient follow up at the [facility] Diabetes Insulin sliding scale, monitor poc DVT prophylaxis SCD boots (hold pharmacologic agent given concerns repeat hematuria) CM--making discharge arrangement with home infusion, She cannot get TPN at home until friday Quality Stroke Does the patient have a stroke diagnosis?: No VTE Prior VTE?: No VTE Risk Level:: Medical - moderate - high VTE Device Contraindication: N/A - Device Ordered VTE Drug Contraindication: Treatment Not Tolerated
[2021-05-12] MEDS: vancomycin HCL 1,250 MG in 0.9 % Sodium Chloride 250 ML 166.67 MG IV (09:09)
[2021-05-12] MEDS: 0.9 % Sodium Chloride Flush 3 ML SYRINGE IVFLUSH (09:09)
[2021-05-12 11:05] VITALS: BP 98/52; PULSE 84; RESP 18; TEMP 35.5; O2SAT 98
[2021-05-12 11:21] LABS: Glucose, Whole Blood 105 mg/dL (60-115)
[2021-05-12 15:57] VITALS: BP 95/55; PULSE 85; RESP 18; TEMP 37.2; O2SAT 98
[2021-05-12 16:30] LABS: Glucose, Whole Blood 80 mg/dL (60-115)
[2021-05-12] MEDS: Fat Emulsions 20% 250 ML 10 ML IVCONT (18:46)
[2021-05-12 19:58] VITALS: BP 98/60; PULSE 85; RESP 18; TEMP 37.2; O2SAT 98
[2021-05-12 21:14] LABS: Glucose, Whole Blood 160 mg/dL (60-115)
[2021-05-12 21:18] LABS: Creatinine Clr Calc Pharmacy 72.3; Estimated Glomerular Filt Rate > 60
[2021-05-12] MEDS: vancomycin HCL 1,000 MG in 0.9 % Sodium Chloride 250 ML 270 MG IV (22:48)
[2021-05-12] MEDS: Insulin Lispro 100 UNIT/ML 3 ML VIAL SUBCUT (22:52)
[2021-05-12 23:06] VITALS: BP 93/51; PULSE 92; RESP 18; TEMP 36.3; O2SAT 98
[2021-05-13] MEDS: 0.9 % Sodium Chloride Flush 3 ML SYRINGE IVFLUSH ×3 (00:49→20:01)
[2021-05-13 03:21] VITALS: BP 104/50; PULSE 89; RESP 18; TEMP 36.3; O2SAT 98
[2021-05-13 06:00] VITALS: BMI 20.7
[2021-05-13] MEDS: Fat Emulsions 20% 250 ML 10 ML IVCONT ×2 (06:23→17:11)
[2021-05-13 07:17] VITALS: BP 92/50; PULSE 92; RESP 18; TEMP 36.6; O2SAT 97
[2021-05-13 07:24] LABS: Glucose, Whole Blood 206 mg/dL (60-115)
[2021-05-13] MEDS: Insulin Lispro 100 UNIT/ML 3 ML VIAL SUBCUT ×4 (08:08→21:37)
[2021-05-13] MEDS: vancomycin HCL 1,000 MG in 0.9 % Sodium Chloride 250 ML 270 MG IV ×2 (08:09→21:38)
[2021-05-13 08:14] LABS: Anion Gap 13 (12-20); Blood Urea Nitrogen 10 mg/dL (9-16); Calcium 8.2 mg/dL (8.4-10.2); Carbon Dioxide 23 mmol/L (22-29); Chloride 104 mmol/L (96-108); Creatinine Clr Calc Pharmacy 66.2; Estimated Glomerular Filt Rate > 60; Glucose Random 203 mg/dL (60-115); Magnesium 1.8 mg/dL (1.6-2.6); Phosphorus 4.2 mg/dL (2.7-4.5); Potassium 4.4 mmol/L (3.3-5.1); Sodium 136 mmol/L (135-145)
[2021-05-13 11:10] VITALS: BP 98/52; PULSE 85; RESP 16; TEMP 36.6; O2SAT 99
[2021-05-13 11:32] LABS: Glucose, Whole Blood 203 mg/dL (60-115)
[2021-05-13 15:51] VITALS: BP 103/55; PULSE 91; RESP 18; TEMP 37.1; O2SAT 100
[2021-05-13 16:14] LABS: Glucose, Whole Blood 166 mg/dL (60-115)
--- NOTE | 2021-05-13 16:21 | P.PNIM_ITS ---
Subjective Subjective Date of Service: 05/13/21 Interval History: No acute medical issues overnight Review of Systems Denies chest pain Denies shortness of breath Denies nausea vomiting diarrhea Physical Exam Vital Signs: Vital Signs: Last Vital Signs Temp 98.8 F 05/13/21 15:51 Pulse 91 05/13/21 15:51 Resp 18 05/13/21 15:51 BP 103/55 L 05/13/21 15:51 Pulse Ox 100 05/13/21 15:51 Body Mass Index 20.7 Const: General: well developed HENMT: Other: Membranes moist; oropharynx clear Resp: Auscultation: clear to auscultation bilaterally, no rales, no rhonchi and no wheezes Cardio: Rate: regular rate Rhythm: regular rhythm Heart sounds: S1 normal heart sound present, S2 normal heart sound present and no murmurs GI: Other: Soft nontender nondistended with normoactive bowel sounds. There is no peritoneal signs Neuro: Other: Age-appropriate nonfocal Extrem: General: Yes normal to inspection Objective Data Active Medications Acetaminophen (Acetaminophen 325 Mg Tablet) 650 mg PO Q6H PRN PRN Reason: pain Last Admin: 05/11/21 21:00 Dose: 650 mg Documented by: LEISA Benzonatate (Benzonatate 100 Mg Capsule) 100 mg PO TID PRN PRN Reason: Cough Last Admin: 05/05/21 23:31 Dose: 100 mg Documented by: PARDEEP Dextrose (Dextrose 50 % 25 Gm/50 Ml Vial) 25 gm IVPUSH Q15M PRN; Protocol PRN Reason: per Hypoglycemia Standing Ord. Glucose (Glucose Gel 15 Gm Gel..Gram.) 15 gm PO Q15M PRN; Protocol PRN Reason: per Hypoglycemia Standing Ord. Multivitamins 10 ml/ Trace Metals 1 ml/ Amino Acids/Electrolytes/Dextrose 1,560 mls @ 65 mls/hr IV DAILY@1800 MARY Stop: 05/13/21 17:59 Last Admin: 05/12/21 17:22 Dose: 65 mls/hr Documented by: JEFF Fat Emulsion Intravenous (Intralipid) 120 mls @ 10 mls/hr IVCONT BID@0600,1800 MARY Stop: 05/13/21 17:59 Last Admin: 05/13/21 06:23 Dose: 10 mls/hr Documented by: LEISA Vancomycin HCl 1,000 mg/ (Sodium Chloride) 270 mls @ 270 mls/hr IV Q12H [facility] Last Infusion: 05/13/21 09:13 Dose: 0 mls/hr Documented by: JEFF Multivitamins 10 ml/ Trace Metals 1 ml/ Amino Acids/Electrolytes/Dextrose 1,560 mls @ 65 mls/hr IV DAILY@1800 [facility] Stop: 05/14/21 17:59 Fat Emulsion Intravenous (Intralipid) 120 mls @ 10 mls/hr IVCONT BID@0600,1800 [facility] Stop: 05/14/21 17:59 Insulin Human Lispro (Insulin Lispro 100 Unit/Ml 3 Ml Vial) 0 unit SUBCUT QIDACHS [facility]; Protocol Last Admin: 05/13/21 11:50 Dose: 4 unit Documented by: JEFF Melatonin (Melatonin 3 Mg Tablet) 6 mg PO BEDTIME PRN PRN Reason: Insomnia Last Admin: 05/11/21 21:01 Dose: 6 mg Documented by: LEISA Pharmacy Consult (Consult Rx Perform Med Rec) 1 each MISCELLANE ONCE PRN PRN Reason: Consult order Sodium Chloride (0.9 % Sodium Chloride Flush 3 Ml Syringe) 3 ml IVFLUSH QSHIFT [facility] Last Admin: 05/13/21 15:56 Dose: Not Given Documented by: JEFF Non-Admin Reason: IV Running Labs CBC & Chem 7: 05/09/21 05:47 05/13/21 06:58 Labs: Laboratory Results - last 24 hr 05/12/21 05/12/21 05/12/21 16:25 20:59 20:59 Anion Gap Estim Creat Clear Calc 72.3 Estimated GFR > 60 POC Glucose 80 Random Glucose Calcium Phosphorus Magnesium Vancomycin Trough 17.0 05/12/21 05/13/21 05/13/21 21:10 06:58 07:17 Anion Gap 13 Estim Creat Clear Calc 66.2 Estimated GFR > 60 POC Glucose 160 H 206 H Random Glucose 203 H Calcium 8.2 L Phosphorus 4.2 Magnesium 1.8 Vancomycin Trough 05/13/21 05/13/21 11:09 16:11 Anion Gap Estim Creat Clear Calc Estimated GFR POC Glucose 203 H 166 H Random Glucose Calcium Phosphorus Magnesium Vancomycin Trough Assessment and Plan (1) Abdominal pain: Status: Acute Assessment and Plan: ?66-year-old female with a past medical history of diabetes, history of ovarian cancer on chemo; recent presentation to [facility] for hematuria status post cystoscopy; has been having feeding difficulties, reduced oral intake; patient was on TPN via midline from [facility]; plan for abdominal surgery later; presented here with abdominal pain.? CT abdomen showed possible obstruction 1.Abdominal pain d/t SBO that is now resolved, but high risk for recurrence -For now avoiding solid food -continue liquid diet - continue TPN, monitor electrolytes 2.Staph Epi and Staph Lugdunensis bacteremia, positive samples from 05/03, 05/06 and . Sample from 05/09 negative, source likely prior picc line (removed) -ID advises correction IV Vanco, . -New picc line inserted on 05/11 ovarian cancer with metastatic disease outpatient follow up at [facility] Diabetes Insulin sliding scale, monitor poc DVT prophylaxis SCD boots (hold pharmacologic agent given concerns repeat hematuria) Quality Stroke Does the patient have a stroke diagnosis?: No VTE Prior VTE?: No VTE Risk Level:: Medical - moderate - high VTE Device Contraindication: N/A - Device Ordered VTE Drug Contraindication: Treatment Not Tolerated
[2021-05-13] MEDS: Acetaminophen 325 MG TABLET 650 MG PO (17:18)
[2021-05-13 19:34] VITALS: BP 112/42; PULSE 100; RESP 20; TEMP 37.1; O2SAT 95
[2021-05-13] MEDS: oxyCODONE HCl Immed Release 5 MG TABLET PO (20:00)
[2021-05-13 20:22] LABS: Glucose, Whole Blood 203 mg/dL (60-115)
[2021-05-14] VITALS (8 sets, daily range): BP systolic 97–146; BP diastolic 44–88; PULSE 80–98; RESP 18; TEMP 35.8–37.6; O2SAT 96–99; BMI 19.7
[2021-05-14] MEDS: Fat Emulsions 20% 250 ML 10 ML IVCONT (06:11)
[2021-05-14 07:23] LABS: Glucose, Whole Blood 174 mg/dL (60-115)
[2021-05-14] MEDS: Insulin Lispro 100 UNIT/ML 3 ML VIAL SUBCUT ×4 (07:42→20:39)
[2021-05-14 09:26] LABS: Anion Gap 11 (12-20); Blood Urea Nitrogen 12 mg/dL (9-16); Calcium 8.5 mg/dL (8.4-10.2); Carbon Dioxide 27 mmol/L (22-29); Chloride 102 mmol/L (96-108); Creatinine Clr Calc Pharmacy 68.5; Estimated Glomerular Filt Rate > 60; Glucose Random 191 mg/dL (60-115); Potassium 4.4 mmol/L (3.3-5.1); Sodium 136 mmol/L (135-145)
[2021-05-14 09:35] LABS: Vancomycin Trough 9.7 mcg/mL (10.0-20.0)
--- NOTE | 2021-05-14 10:23 | MHC.CLN ---
F/U PT RECEIVED PPN; D10AA4.25 AT 65ML/HR WITH 10ML OF 20% LIPIDS (X24HRS) PROVIDED 1276KCALS (28KCALS/KG), 66G PROTEIN (1.5G/KG) DIET RX: F/L-APPROPRIATE PO INTAKE: 50% AVG. ON F/L PT ALSO RECEIVING ENSURE TID PROVIDES 1020KCALS, 60G PROTEIN (WITH 100% ACCEPTANCE/INTAKE) CONTINUE TO MONITOR PO INTAKE CLOSELY PT RECEIVED NEW PICC LINE PLACED 05/11 RECOMMEND SWITCHING TO TPN D15AA5% AT 55ML/HR WITH 13ML OF 20% LIPIDS X 12 HRS TO PROVIDE 1249KCALS TOTAL (28KCALS/KG), 66G PROTEIN (1.5G/KG) REPLETE LYTES NEEDED; REVIEWED LABS AND DISCUSSED WITH PHARMACY
[2021-05-14 10:30] LABS: Magnesium 1.7 mg/dL (1.6-2.6); Phosphorus 3.5 mg/dL (2.7-4.5)
[2021-05-14] MEDS: vancomycin HCL 1,250 MG in 0.9 % Sodium Chloride 250 ML 166.67 MG IV ×2 (10:41→22:07)
[2021-05-14 11:19] LABS: Glucose, Whole Blood 216 mg/dL (60-115)
--- NOTE | 2021-05-14 13:30 | HO.PM.IMPN ---
Subjective Subjective Date of Service: 05/14/21 Interval History: No acute medical issues overnight. Appetite improving Review of Systems Denies chest pain Denies shortness of breath Denies nausea vomiting diarrhea Physical Exam Vital Signs: Vital Signs: Last Vital Signs Temp 97.9 F 05/14/21 11:15 Pulse 97 05/14/21 11:15 Resp 18 05/14/21 11:15 BP 106/52 L 05/14/21 11:15 Pulse Ox 97 05/14/21 11:15 Body Mass Index 19.7 Const: General: well developed HENMT: Other: Membranes moist; oropharynx clear Resp: Auscultation: clear to auscultation bilaterally, no rales, no rhonchi and no wheezes Cardio: Rate: regular rate Rhythm: regular rhythm Heart sounds: S1 normal heart sound present, S2 normal heart sound present and no murmurs GI: Other: Soft nontender nondistended with normoactive bowel sounds. There is no peritoneal signs Neuro: Other: Age-appropriate nonfocal Extrem: General: Yes normal to inspection Objective Data Active Medications Acetaminophen (Acetaminophen 325 Mg Tablet) 650 mg PO Q6H PRN PRN Reason: pain Last Admin: 05/13/21 17:18 Dose: 650 mg Documented by: JEFF Benzonatate (Benzonatate 100 Mg Capsule) 100 mg PO TID PRN PRN Reason: Cough Last Admin: 05/05/21 23:31 Dose: 100 mg Documented by: PARDEEP Dextrose (Dextrose 50 % 25 Gm/50 Ml Vial) 25 gm IVPUSH Q15M PRN; Protocol PRN Reason: per Hypoglycemia Standing Ord. Glucose (Glucose Gel 15 Gm Gel..Gram.) 15 gm PO Q15M PRN; Protocol PRN Reason: per Hypoglycemia Standing Ord. Multivitamins 10 ml/ Trace Metals 1 ml/ Amino Acids/Electrolytes/Dextrose 1,560 mls @ 65 mls/hr IV DAILY@1800 MARY Stop: 05/14/21 17:59 Last Admin: 05/13/21 17:11 Dose: 65 mls/hr Documented by: JEFF Fat Emulsion Intravenous (Intralipid) 120 mls @ 10 mls/hr IVCONT BID@0600,1800 MARY Stop: 05/14/21 17:59 Last Admin: 05/14/21 06:11 Dose: 10 mls/hr Documented by: RAMANDEEP Vancomycin HCl 1,250 mg/ (Sodium Chloride) 250 mls @ 166.667 mls/hr IV Q12H [facility] Last Infusion: 05/14/21 12:15 Dose: 0 mls/hr Documented by: RK Multivitamins 10 ml/ Trace Metals 1 ml/ Amino Acids/Electrolytes 1,320 mls @ 55 mls/hr IV DAILY@1800 [facility] Stop: 05/15/21 17:59 Fat Emulsion Intravenous (Intralipid) 156 mls @ 13 mls/hr IV DAILY@1800 [facility] Stop: 05/15/21 05:59 Insulin Human Lispro (Insulin Lispro 100 Unit/Ml 3 Ml Vial) 0 unit SUBCUT QIDACHS [facility]; Protocol Last Admin: 05/14/21 11:26 Dose: 4 unit Documented by: RK Melatonin (Melatonin 3 Mg Tablet) 6 mg PO BEDTIME PRN PRN Reason: Insomnia Last Admin: 05/11/21 21:01 Dose: 6 mg Documented by: LEISA Pharmacy Consult (Consult Rx Perform Med Rec) 1 each MISCELLANE ONCE PRN PRN Reason: Consult order Sodium Chloride (0.9 % Sodium Chloride Flush 3 Ml Syringe) 3 ml IVFLUSH QSHIFT [facility] Last Admin: 05/14/21 07:43 Dose: Not Given Documented by: RK Non-Admin Reason: picc Labs CBC & Chem 7: 05/09/21 05:47 05/14/21 08:56 Labs: Laboratory Results - last 24 hr 05/13/21 05/13/21 05/14/21 16:11 20:12 07:18 Anion Gap Estim Creat Clear Calc Estimated GFR POC Glucose 166 H 203 H 174 H Random Glucose Calcium Phosphorus Magnesium Vancomycin Trough 05/14/21 05/14/21 05/14/21 08:56 08:56 11:14 Anion Gap 11 L Estim Creat Clear Calc 68.5 Estimated GFR > 60 POC Glucose 216 H Random Glucose 191 H Calcium 8.5 Phosphorus 3.5 Magnesium 1.7 Vancomycin Trough 9.7 L Microbiology Microbiology Results: Microbiology 05/09/21 09:27 Blood Culture - Final Blood - Venous No growth after 5 days. 05/09/21 09:25 Blood Culture - Final Blood - Venous No growth after 5 days. Assessment and Plan (1) Pelvic cancer: Status: Acute (2) Bacteremia: Status: Acute Assessment and Plan: ?66-year-old female with a past medical history of diabetes, history of ovarian cancer on chemo; recent presentation to [facility] for hematuria status post cystoscopy; has been having feeding difficulties, reduced oral intake; patient was on TPN via midline from [facility]; plan for abdominal surgery later; presented here with abdominal pain.? CT abdomen showed possible obstruction. No acute issues 1.Abdominal pain d/t SBO that is now resolved, but high risk for recurrence -For now avoiding solid food -continue liquid diet - continue TPN, monitor electrolytes; arrange outpatient therapies 2.Staph Epi and Staph Lugdunensis bacteremia, positive samples from 05/03, 05/06 and . Sample from 05/09 negative, source likely prior picc line (removed) -ID advises half-way IV Vanco, 4 weeks total. -New picc line inserted on 05/11 ovarian cancer with metastatic disease outpatient follow up at [facility] Diabetes Insulin sliding scale, monitor poc DVT prophylaxis SCD boots (hold pharmacologic agent given concerns repeat hematuria) Quality Stroke Does the patient have a stroke diagnosis?: No VTE Prior VTE?: No VTE Risk Level:: Medical - moderate - high VTE Device Contraindication: N/A - Device Ordered VTE Drug Contraindication: Treatment Not Tolerated
--- NOTE | 2021-05-14 15:19 | MHC.CM.PN ---
IMM 05/14/21 Female 66 DP home with [facility]. The Pt will continue to require TPN. Patient will also receive Vanco IV at home. She has a DBL luman PICC line. Discharge is planned for tomorrow.
[2021-05-14 15:59] LABS: Glucose, Whole Blood 218 mg/dL (60-115)
[2021-05-14] MEDS: Fat Emulsions 20% 250 ML 13 ML IV (18:05)
[2021-05-14 20:02] LABS: Glucose, Whole Blood 187 mg/dL (60-115)
[2021-05-14] MEDS: Acetaminophen 325 MG TABLET 650 MG PO (20:39)
[2021-05-15 04:00] VITALS: BP 138/66; PULSE 70; RESP 18; TEMP 36.7; O2SAT 98
[2021-05-15 06:00] VITALS: BMI 20.6
[2021-05-15 07:14] LABS: Glucose, Whole Blood 224 mg/dL (60-115)
[2021-05-15 07:22] LABS: Anion Gap 12 (12-20); Blood Urea Nitrogen 11 mg/dL (9-16); Carbon Dioxide 24 mmol/L (22-29); Chloride 104 mmol/L (96-108); Estimated Glomerular Filt Rate > 60; Glucose Random 210 mg/dL (60-115); Potassium 4.1 mmol/L (3.3-5.1); Sodium 136 mmol/L (135-145)
[2021-05-15] MEDS: Insulin Lispro 100 UNIT/ML 3 ML VIAL SUBCUT ×2 (07:23→11:26)
[2021-05-15 07:36] VITALS: BP 103/53; PULSE 88; RESP 16; O2SAT 97
[2021-05-15 09:02] LABS: Magnesium 1.7 mg/dL (1.6-2.6); Phosphorus 3.3 mg/dL (2.7-4.5); Triglycerides 250 mg/dL
--- NOTE | 2021-05-15 10:08 | MHC.CLN ---
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
[2021-05-15] MEDS: vancomycin HCL 1,250 MG in 0.9 % Sodium Chloride 250 ML 166.67 MG IV (10:48)
[2021-05-15 11:07] LABS: Glucose, Whole Blood 173 mg/dL (60-115)
[2021-05-15 11:26] VITALS: BP 104/54; PULSE 89; RESP 18; O2SAT 99
--- NOTE | 2021-05-15 12:25 | MHC.CM.PN ---
IMM 05/15/21 Female 66 DX UTI. She is discharged to home today. [facility] will resume services. The patient is discharged on VANCO IV Q12 Hours. [facility] has performed bedside teaching with Pt and . He will administer 2nd dose of IV Vanco. Transportation home is provided by Pts Spouse.
--- NOTE | 2021-05-15 13:01 | PM.DS ---
DS: Providers Provider Date of Service: 05/15/21 Date of admission: 05/03/21 21:21 Date of discharge: 05/15/21 Primary care physician: Katalina Larson MD Consults: 05/03/21 22:18 Consult to General Surgery Routine Consulting Provider: Zhen Alfonso Reason for consultation: abd pain/obstruction Consult to Infectious Diseases Routine Consulting Provider: Luiza Pizarro Reason for consultation: bacteremia Consult to Urology Routine Consulting Provider: Shreyas Deutsch Reason for consultation: UTI; recent hematuria s/p urologic procedure DS: Diagnosis Discharge Diagnosis (1) Pelvic cancer: Status: Acute (2) On total parenteral nutrition: Status: Acute (3) Diabetes: Status: Acute (4) Abdominal pain: Status: Acute (5) Acute UTI: Status: Acute DS: Summary Hospital Course Hospital Course: 66-year-old female with past medical history of diabetes history of ovarian cancer status post chemo presented to [facility] for hematuria after cystoscopy. She has been having feeding difficulties on and off and was started on TPN via midline for [facility]; plan was for future abdominal surgery. She presented to [facility] with complaints of abdominal pain. Admitting Ct demonstrated small bowel obstruction. She was kept NPO on TPN with ultimate resolution of her SB 0. On 05/09, blood cultures grew out Staph epi and Staph Lugdunensis sensitive to vancomycin. She was seen in consultation by Infectious Disease and recommended IV vancomycin for total of 4 weeks. New PICC line was inserted on 05/11/2021 date her sugars have been controlled with a sliding scale at this point in time she is acceptable for discharge home to continue TPN and complete her course of vancomycin. Physical exam Awake alert oriented x3 no acute distress vital signs stable Oropharynx clear; membranes moist Chest clear; no rales rhonchi or wheezes Cardiovascular: No S4 positive S1-S2 no S3 without murmurs rubs or gallops Abdomen: Soft nontender nondistended with normoactive bowel sounds. No peritoneal signs Extremities: No edema bilaterally Status at Discharge Cognitive/behavioral status at discharge: Cognition intact. Ambulatory with minimal assist Time Spent with Patient Time attestation: Total time spent providing and/or coordinating discharge services: Discharge coordination time: Greater than 30 minutes Quality: Stroke Does the patient have a stroke diagnosis?: No Physical Exam Vital Signs: Vital Signs: Last Vital Signs Temp 98.0 F 05/15/21 04:00 Pulse 89 05/15/21 11:26 Resp 18 05/15/21 11:26 BP 104/54 L 05/15/21 11:26 Pulse Ox 99 05/15/21 11:26 Body Mass Index 20.6 DS: Data Data Completed and Pending Labs on day of discharge: Laboratory Results - last 24 hr 05/14/21 05/14/21 05/15/21 15:54 19:56 05:35 Sodium 136 Potassium 4.1 Chloride 104 Carbon Dioxide 24 Anion Gap 12 BUN 11 Creatinine 0.56 Estim Creat Clear Calc 71.0 Estimated GFR > 60 POC Glucose 218 H 187 H Random Glucose 210 H Calcium 8.0 L Phosphorus 3.3 Magnesium 1.7 Albumin 3.0 L Triglycerides 250 05/15/21 05/15/21 07:11 11:03 Sodium Potassium Chloride Carbon Dioxide Anion Gap BUN Creatinine Estim Creat Clear Calc Estimated GFR POC Glucose 224 H 173 H Random Glucose Calcium Phosphorus Magnesium Albumin Triglycerides Additional Comments Additional comments: Patient will be followed by outpatient [facility] who will be straight TPN and vancomycin. Follow up with PCP as scheduled along with surgery Discharge Plan Discharge Patient Disposition: Home Health Service Discharge Diagnosis: Resolving SBO Referrals: Katalina Larson MD [Primary Care Provider] - 1 Week Baljit Davies DO [Physician] - 1 Week Discharge Medications: New vancomycin 1.25 gram recon soln 1.25 g IV Q12H Qty: 28 RF: 0 Continued sennosides-docusate sodium [Senexon-S] 8.6-50 mg tablet 2 tab PO DAILY PRN (Reason: Constipation) RF: 0 fluticasone propionate 50 mcg/actuation spray,suspension 1 spray intranasal DAILY PRN (Reason: Allergy Symptoms) RF: 0 melatonin 5 mg tablet 1 tab PO BEDTIME RF: 0 Discontinued metformin 1,000 mg tablet 1 tab PO BID RF: 0 Discharge Orders: Discharge Order (Routine); Ordered 05/15/21 Ordered By: Baljit Davies Diet: other Activity on Discharge: As tolerated Stand Alone Forms: Patient Portal Discharge page Care Plan Goals: Continue TPN and advance diet as per surgery Health Concerns: Recurrent SBO Plan of Treatment: TPN/complete course of Vanco Assessment: Improved upon discharge
[2021-05-15] MEDS: Acetaminophen 325 MG TABLET 650 MG PO (14:54)
[2021-05-15] MEDS: Heparin Sodium,Porcine Flush 50 UNITS, 0.9 % Sodium Chloride Flush 5 ML IVFLUSH (15:07)
== END 2021-05-15 15:39 | disposition home health service (06) | DRG 315 ==
LOC: HO.ED 19:28 → HO.EDOVER 05-04 00:17 → HO.IMC 05-04 18:32
PROVIDERS: Anesthesiology; Internal Medicine; Nurse Practitioner Family; Student in an Organized Health Care Education/Training Program; Admitting Provider Hospitalist; Emergency Provider Emergency Medicine; PCP Pediatrics; Visit Provider Hospitalist
DX: T80.211A Bloodstream infection due to central venous catheter, initial encounter (principal); N39.0 Urinary tract infection, site not specified; K56.609 Unspecified intestinal obstruction, unspecified as to partial versus complete obstruction; R78.81 Bacteremia; C56.9 Malignant neoplasm of unspecified ovary; C80.0 Disseminated malignant neoplasm, unspecified; C76.3 Malignant neoplasm of pelvis; R31.9 Hematuria, unspecified; B95.7 Other staphylococcus as the cause of diseases classified elsewhere; Z20.822 Contact with and (suspected) exposure to COVID-19; E11.9 Type 2 diabetes mellitus without complications; Z23 Encounter for immunization; Z88.0 Allergy status to penicillin; Z79.51 Long term (current) use of inhaled steroids; Z79.899 Other long term (current) drug therapy
CPT/HCPCS: 36415; 36573; 74018; 74176; 80048; 80053; 80202; 81001; 82040; 82565; 82947; 83605; 83735; 84100; 84478; 85025; 85027; 87040; 87077; 87086; 87186; 87205; 87635; 90686; 96365; 96375; 99285; C1751; J0610; J1642; J1956; J2270; J2405; J3370; J3475

== ENCOUNTER 2021-05-17 08:36 | Emergency (ER) | payer MEDICARE, SELFPAY ==
--- NOTE | ~2021-05-17 | US_ITS ---
EXAMINATION: US VENOUS WITH DOPPLER UPPER EXTREMITY, LEFT CLINICAL INFORMATION: Pain and swelling COMPARISON: None TECHNIQUE: Ultrasound of the upper extremity is performed using compression sonography and color and pulse Doppler flow with assessment of augmentation of flow. There is also imaging and Doppler assessment of the jugular and subclavian veins. Spectral analysis with color-flow imaging is performed. FINDINGS: Respiratory variation, normal compression, and augmented flow are noted throughout the upper extremity including the axillary, brachial, cubital, and radial and ulnar veins. There is normal flow in the internal jugular and subclavian veins. There is no visible deep or superficial thrombophlebitis. The basilic vein is not seen. There is a PICC line in the mid and distal cephalic vein with veins not visualized. If the patient's symptoms progress, a followup ultrasound in 5 -7 days might be of value to exclude proximal propagation from a nonvisualized distal arm vein. US/US venous duplex UE LT IMPRESSION: No DVT demonstrated in the left lower extremity.
--- NOTE | ~2021-05-17 | CT_ITS ---
EXAMINATION: CT ABDOMEN AND PELVIS WITHOUT CONTRAST CLINICAL INFORMATION: Abdominal pain. History of recent is DL. COMPARISON: CT abdomen pelvis 05/03/2021 TECHNIQUE: Multidetector volumetric imaging was performed from the superior aspect of the liver through the pubic symphysis. Sagittal and coronal reformatted images were obtained on the technologist's workstation. This CT examination was performed using dose optimization techniques as appropriate, variously including the following: *Automated exposure control *Adjustment of mA and/or kV according to patient size (this includes techniques or standardized protocols for targeted exams where dose is matched to indication/reason for exam; i.e. extremities or head) *Use of iterative reconstruction technique DLP: 291 mGy-cm FINDINGS: LUNG BASES: There is focal atelectatic changes left lung base. There are several nodules in the right lower lobe. Largest measuring 6 fluid in right lower lobe image 6/3 LIVER, GALLBLADDER, AND BILIARY TREE: The liver is normal in size, shape, and attenuation. No focal hepatic lesion or biliary ductal dilatation is present. The gallbladder has been surgically removed. PANCREAS: Unremarkable. SPLEEN: Unremarkable. ADRENAL GLANDS: Unremarkable. KIDNEYS AND URETERS: The kidneys are normal in size, shape, and attenuation. No hydronephrosis, hydroureter, or calculi seen. No perinephric stranding. BLADDER: Unremarkable. GASTROINTESTINAL TRACT: There are 2 postsurgical sites the mid 1 dilated anastomotic segment in the midline with air-fluid level visualized on axial 47/3. It is dilated measuring approximately 6.8 cm in AP and 8.3 cm in transverse dimension. The smaller anastomotic segment to the right on axial image 45/3 has a proximal nondilated segment extending into a distended first anastomotic segment. The second site of surgery could be abnormal. There is mild haziness in the surrounding peritoneum. No free air seen. Multiple dilated small bowel loops are present in the lower abdomen and pelvis. Is mild colonic diverticulosis without diverticulitis. Likely occurred anastomotic site is suspected in the lower pelvis involving the sigmoid colon. ABDOMINAL WALL: No significant hernia is appreciated. LYMPH NODES: Normal. VASCULAR: Unremarkable. PELVIC VISCERA: Unremarkable. OSSEOUS STRUCTURES: No lytic or sclerotic process seen CT/CT abdomen pelvis wo con IMPRESSION: Abnormal CT abdomen and pelvic exam. There are 3 surgical sites the midline anastomotic site is distended with air-fluid level and small bowel loops proximal that are distended as well. The first anastomotic suture line in the right of the abdomen is likely cause of obstruction where the small bowel loop dilates into a larger anastomotic loop with fecal/food residue segment on axial image 45/3. Similar findings were present on the previous exam 05/03/2021. The anastomotic site in left sigmoid colon appears patent. Colonic diverticulosis without diverticulitis. There is no free fluid or free air. Evidence of previous cholecystectomy. Stable multiple right lung nodules.
[2021-05-17 08:47] VITALS: BP 100/49; PULSE 100; RESP 12; TEMP 35.9; O2SAT 100; BMI 19.1
--- NOTE | 2021-05-17 09:01 | ED.GENADULT ---
HPI - General Adult General Chief complaint: General Medical Stated complaint: rule out blood clot, arm pain Time Seen by Provider: 05/17/21 09:01 Source: patient Mode of arrival: ambulatory Limitations: no limitations History of Present Illness HPI narrative: 66 y/o female with history of ovarian cancer s/p chemotherapy, history of multiple abdominal surgeries with chronic abdominal pain on TPN x 5 months, diabetes, [place] [facility] [place] Staph epi bacterermia. She was discharged home on IV vanco x4 weeks via left UE PICC on 05/15. She was sent in for evaluation of left upper extremity pain concern for blood clot per visiting nurse. Patient reports pain proximal to her PICC. The area is tender. She also reports ongoing abdominal pain, but denies vomiting or diarrhea. She denies fevers at home. She last ate some oatmeal this morning and has been having worsening pain since. MD complaint: LUE pain @ PICC site Onset (ago): hour(s) Location: left and upper extremity Radiation: non-radiation Severity: moderate Severity scale (1-10): 5 Quality: aching Pain Consistency: constant Relieving factors: none Exacerbating factors: movement and other (palpation ) Treatments prior to arrival: none Related Data Home Medications Medication Instructions Recorded Confirmed fluticasone propionate 50 1 spray INTRANASAL DAILY PRN 05/03/21 05/03/21 mcg/actuation nasal spray,suspension melatonin 5 mg tablet 1 tab PO BEDTIME 05/03/21 05/03/21 sennosides 8.6 mg-docusate sodium 2 tab PO DAILY PRN 05/03/21 05/03/21 50 mg tablet (Senexon-S) Previous Rx's Medication Instructions Recorded vancomycin 1.25 gram intravenous 1.25 g IV Q12H #28 ea 05/14/21 solution Allergies Allergy/AdvReac Type Severity Reaction Status Date / Time Iodinated Contrast Media Allergy Severe DIFF.BREATH Verified 05/03/21 16:31 [IV Dye, Iodine Containing] ING Penicillins AdvReac Mild PASSED OUT Verified 05/03/21 16:31 Environmental Allergy Mild ITCHY Uncoded 05/04/20 16:02 EYES/RUNNY NOSE DYE Allergy Unknown Unknown Uncoded 05/03/21 16:31 PENICILLIN G Allergy Unknown Unknown Uncoded 05/03/21 16:31 Review of Systems Review of Systems: Constitutional: No Fever, No Chills ENT/Mouth: No sore throat, No Rhinorrhea, No Swallowing Difficulty Eyes: No Eye Pain, No Swelling, No Redness Cardiovascular: No Chest Pain, No SOB, No Orthopnea, No Edema Respiratory: No Cough, No Sputum, No Wheezing, No dyspnea Gastrointestinal: No Nausea, No Vomiting, No Diarrhea, No abdominal Pain, No Hematochezia, No Melena Genitourinary: No Dysuria, No Urinary Frequency, No Hematuria Musculoskeletal: No joint pain, No Myalgias Skin: No Skin Lesions, No rash Neuro: No Weakness, No Numbness, No Dizziness, No Headache Psych: No Anxiety/Panic, No Depression Heme/Lymph: No Bruising, No Lymphadenopathy Endocrine: No Polyuria, No Polydipsia [facility] Past Medical History Medical History Arthritis Diabetes Osteoporosis Pelvic cancer Surgical History History of colon resection Hx of cholecystectomy Social History Social History Household Members: Spouse Housing: House Do you presently have visiting nurse or other home services: Yes (comes every day) Alcohol intake: never Patient Tobacco Use Status: Never used Tobacco Advance Directives Date on File: 05/04/21 service: No Current occupational status: retired Physical Exam Vital Signs: Vital Signs: Last Vital Signs Temp 98.1 F 05/17/21 09:04 Pulse 85 05/17/21 11:39 Resp 17 05/17/21 11:39 BP 115/54 L 05/17/21 11:39 Pulse Ox 99 05/17/21 11:39 Body Mass Index 19.1 Appearance: Alert. Oriented X3. No acute distress. Eyes: Pupils equal, round and reactive to light. ENT: Pharynx normal. Neck: Normal inspection. Neck supple. CVS: Normal heart rate and rhythm. Pulses normal. Respiratory: No respiratory distress. Breath sounds normal. Abdomen: Soft with moderate diffuse tenderness, decreased but present +BS x4. guarding present Skin: Skin warm and dry. Normal skin color. Normal skin turgor. No rashes. Extremities: No lower extremity edema. Left upper extremity with PICC line in place, no surrounding erythema. Proximal to insertion site there is soft tissue tenderness, slightly firm but no fluctunace, no ecchymosis, no warmth. Neuro: Oriented X 3. No motor deficit. No sensory deficit. Course Course Course Narrative: 66 y/o female presenting for evaluation of left arm pain and abdominal pain. PICC site does not appear to be infected but she has some tenderness proximally, most likely some superficial thrombophlebitis. Will get US to rule out deeper clot. Both lumens of her PICC flush well, only one draws back. Will get basic labs, surveillence blood cultures and CT abd/pelvis given her tenderness on exam and hx SBO. Reevaluation(s) Reevaluation #1: CT scan showing Abnormal CT abdomen and pelvic exam. ? There are 3 surgical sites the midline anastomotic site is distended with air-fluid level and small bowel loops proximal that are distended as well. The first anastomotic suture line in the right of the abdomen is likely cause of obstruction where the small bowel loop dilates into a larger anastomotic loop with fecal/food residue segment on axial image 45/3. Similar findings were present on the previous exam 05/03/2021. ? The anastomotic site in left sigmoid colon appears patent. Colonic diverticulosis without diverticulitis. ? There is no free fluid or free air. ? Evidence of previous cholecystectomy. ? Stable multiple right lung nodules. Will discuss with Surgery. Reevaluation #2: Case discussed with Dr. Cuello - given patient's history recommending conservative management - strict NPO, continue TPN and follow up with her doctors at [facility]. She is not vomiting and does not require admission at this time. She did not tolerate NG tube last admission. She has VNA services at home and gets IV vanco q12. She has good follow up and agrees with the plan. She will call her doctor today to set up appointment, although is expressing want for a new surgeon. Asking for [facility] Surgeon - general surgery office number provided. Medical Decision Making Lab Data Result diagrams: 05/17/21 10:00 05/17/21 10:00 Labs: Lab Results 05/17/21 05/17/21 05/17/21 Range/Units 10:00 10:00 10:00 WBC 8.0 (4.8-10.8) X10*3/uL RBC 4.03 L (4.20-5.50) X10*6/uL Hgb 8.8 L (12.0-16.0) g/dl Hct 29.1 L (37-47) % MCV 72.2 L (80-98) fL MCH 21.8 L (27.0-33.0) pg MCHC 30.2 L (31.0-35.0) g/dl RDW 16.0 (11.0-16.0) % Plt Count 369 (160-400) X10*3/uL MPV 10.3 (9.4-12.3) fL Immature Gran % (Auto) 0.4 (0.0-0.4) % Neut % (Auto) 57.8 (45-73) % Lymph % (Auto) 25.8 (20-40) % [place] % (Auto) 13.4 H (2-11) % Eos % (Auto) 2.1 (0-4) % Baso % (Auto) 0.5 (0-2) % Lymph # (Auto) 2.1 (1.2-4.9) X10*3/uL [place] # (Auto) 1.1 (0.1-1.2) X10*3/uL Eos # (Auto) 0.2 (0.0-0.4) X10*3/uL Baso # (Auto) 0.0 (0.0-0.2) X10*3/uL Abs Immat Gran (auto) 0.03 (0.00-0.03) X10*3/uL Absolute Neuts (auto) 4.6 (2.0-8.3) X10*3/uL Absolute Nucleated RBC 0.000 (0.0-0.012) X10*3/uL Nucleated RBC % (auto) 0.0 (0.0-0.2) /100WBC Sodium 137 (135-145) mmol/L Potassium 4.4 (3.3-5.1) mmol/L Chloride 106 (96-108) mmol/L Carbon Dioxide 21 L (22-29) mmol/L Anion Gap 14 (12-20) BUN 12 (9-16) mg/dL Creatinine 0.59 (0.5-1.4) mg/dL Estim Creat Clear Calc 65.8 Estimated GFR > 60 Random Glucose 230 H (60-115) mg/dL Lactic Acid 2.6 H* (0.5-2.0) mmol/L Lactic Acid Fup @ 2Hr (0.5-2.0) mmol/L Calcium 8.4 (8.4-10.2) mg/dL Magnesium 1.9 (1.6-2.6) mg/dL Total Bilirubin < 0.2 (0.0-1.0) mg/dL Direct Bilirubin < 0.2 (0.0-0.5) mg/dL AST 15 (5-31) U/L ALT 10 (0-31) U/L Alkaline Phosphatase 111 (39-117) U/L Total Protein 7.2 (6.5-8.0) g/dL Albumin 3.2 L (3.5-5.0) g/dL Vancomycin Trough (10.0-20.0) mcg/mL 05/17/21 05/17/21 Range/Units 10:00 12:34 WBC (4.8-10.8) X10*3/uL RBC (4.20-5.50) X10*6/uL Hgb (12.0-16.0) g/dl Hct (37-47) % MCV (80-98) fL MCH (27.0-33.0) pg MCHC (31.0-35.0) g/dl RDW (11.0-16.0) % Plt Count (160-400) X10*3/uL MPV (9.4-12.3) fL Immature Gran % (Auto) (0.0-0.4) % Neut % (Auto) (45-73) % Lymph % (Auto) (20-40) % [place] % (Auto) (2-11) % Eos % (Auto) (0-4) % Baso % (Auto) (0-2) % Lymph # (Auto) (1.2-4.9) X10*3/uL [place] # (Auto) (0.1-1.2) X10*3/uL Eos # (Auto) (0.0-0.4) X10*3/uL Baso # (Auto) (0.0-0.2) X10*3/uL Abs Immat Gran (auto) (0.00-0.03) X10*3/uL Absolute Neuts (auto) (2.0-8.3) X10*3/uL Absolute Nucleated RBC (0.0-0.012) X10*3/uL Nucleated RBC % (auto) (0.0-0.2) /100WBC Sodium (135-145) mmol/L Potassium (3.3-5.1) mmol/L Chloride (96-108) mmol/L Carbon Dioxide (22-29) mmol/L Anion Gap (12-20) BUN (9-16) mg/dL Creatinine (0.5-1.4) mg/dL Estim Creat Clear Calc Estimated GFR Random Glucose (60-115) mg/dL Lactic Acid (0.5-2.0) mmol/L Lactic Acid Fup @ 2Hr 1.2 (0.5-2.0) mmol/L Calcium (8.4-10.2) mg/dL Magnesium (1.6-2.6) mg/dL Total Bilirubin (0.0-1.0) mg/dL Direct Bilirubin (0.0-0.5) mg/dL AST (5-31) U/L ALT (0-31) U/L Alkaline Phosphatase (39-117) U/L Total Protein (6.5-8.0) g/dL Albumin (3.5-5.0) g/dL Vancomycin Trough 8.4 L (10.0-20.0) mcg/mL Critical Care Time Critical Care Time Critical Care Time: No Discharge Plan Discharge Clinical Impression: SBO (small bowel obstruction) Patient Disposition: Home, Self-Care Instructions: Bowel Obstruction (ED) Additional Instructions: Recommend STRICT NOTHING BY MOUTH Continue your TPN at home Continue your IV antibiotics You need to be seen by your Surgical doctors at [facility] If you develop new or worsening symptoms call 911 or come back to the ER for further evaluation. Recomendar NADA ESTRICTO POR BOCA Contin?e dwyer TPN en casa Contin?e con ej antibi?ticos intravenosos Debe ser atendido por ej m?dicos cirujanos en [facility] lo antes posible. Si presenta s?ntomas nuevos o que empeoran, llame al 911 o regrese a la nidhi de emergencias para alphonse evaluaci?n adicional. [facility] Surgery Prescriptions: No Action sennosides-docusate sodium [Senexon-S] 8.6-50 mg tablet 2 tab PO DAILY PRN (Reason: Constipation) RF: 0 fluticasone propionate 50 mcg/actuation spray,suspension 1 spray intranasal DAILY PRN (Reason: Allergy Symptoms) RF: 0 melatonin 5 mg tablet 1 tab PO BEDTIME RF: 0 vancomycin 1.25 gram recon soln 1.25 g IV Q12H Qty: 28 RF: 0 Print Language: Colombian
[2021-05-17 09:04] VITALS: BP 116/57; PULSE 94; RESP 18; TEMP 36.7; O2SAT 100
[2021-05-17] MEDS: Acetaminophen 325 MG TABLET 975 MG PO (09:46)
[2021-05-17 10:05] LABS: MANUAL DIFF FLAG NO
[2021-05-17 10:07] LABS: Basophils Percent Auto 0.5 % (0-2); Eosinophils Absolute Auto 0.2 X10*3/uL (0.0-0.4); Eosinophils Percent Auto 2.1 % (0-4); Hematocrit 29.1 % (37-47); Hemoglobin 8.8 g/dl (12.0-16.0); Imm Gran Abs Auto 0.03 X10*3/uL (0.00-0.03); Imm Gran Pct Auto 0.4 % (0.0-0.4); Lymphocytes Absolute Auto 2.1 X10*3/uL (1.2-4.9); Lymphocytes Percent Auto 25.8 % (20-40); Mean Corpuscular HGB Conc 30.2 g/dl (31.0-35.0); Mean Corpuscular Hemoglobin 21.8 pg (27.0-33.0); Mean Corpuscular Volume 72.2 fL (80-98); Mean Platelet Volume 10.3 fL (9.4-12.3); Monocytes Absolute Auto 1.1 X10*3/uL (0.1-1.2); Monocytes Percent Auto 13.4 % (2-11); Neutrophils Absolute Auto 4.6 X10*3/uL (2.0-8.3); Neutrophils Percent Auto 57.8 % (45-73); Platelet Count 369 X10*3/uL (160-400); Red Blood Count 4.03 X10*6/uL (4.20-5.50)
[2021-05-17 10:20] LABS: Lactic Acid 2.6 mmol/L (0.5-2.0)
[2021-05-17 10:26] LABS: Alanine Aminotransferase 10 U/L (0-31); Albumin Level 3.2 g/dL (3.5-5.0); Alkaline Phosphatase 111 U/L (39-117); Anion Gap 14 (12-20); Aspartate Amino Transferase 15 U/L (5-31); Bilirubin Direct < 0.2 mg/dL (0.0-0.5); Bilirubin Total < 0.2 mg/dL (0.0-1.0); Blood Urea Nitrogen 12 mg/dL (9-16); Calcium 8.4 mg/dL (8.4-10.2); Carbon Dioxide 21 mmol/L (22-29); Chloride 106 mmol/L (96-108); Creatinine Clr Calc Pharmacy 65.8; Estimated Glomerular Filt Rate > 60; Glucose Random 230 mg/dL (60-115); Magnesium 1.9 mg/dL (1.6-2.6); Potassium 4.4 mmol/L (3.3-5.1); Sodium 137 mmol/L (135-145); Total Protein 7.2 g/dL (6.5-8.0)
--- NOTE | 2021-05-17 10:30 | PC.NURSE ---
Pt alert and oriented x3, vss. Pt has a PICC line in her left upper arm. Pt getting Vancomycin and TPN through her PICC. She has a visiting nurse who takes care of her PICC line. She states this morning her visiting nurse attempted to do blood draw from one of her lines but did not get any blood return. The visiting nurse was able to flush the line however the pt states it was painful when she flushed it. She states the nurse both flushed and got blood return from the other line without difficulty. This greeting card writer flushed both lines but only got blood return from one. There is some swelling and redness noted to the area of discomfort. Pt also c/o of abdominal pain which she states is chronic and her PCP is aware.
[2021-05-17 10:41] LABS: Vancomycin Trough 8.4 mcg/mL (10.0-20.0)
--- NOTE | 2021-05-17 10:45 | PC.NURSE ---
Critical Lactic 2.6. Fluids infusing without difficulty through PICC line. Pt tolerating well. Redraw in 2 hours.
[2021-05-17] MEDS: 0.9 % Sodium Chloride 1,000 ML 999 ML IVCONT (10:46)
[2021-05-17 11:39] VITALS: BP 115/54; PULSE 85; RESP 17; O2SAT 99
[2021-05-17 12:03] LABS: Reflex Lactate? Lactic Acid Added
[2021-05-17 12:53] LABS: ~Lactic Acid-LAB USE ONLY 1.2 mmol/L (0.5-2.0)
== END 2021-05-17 14:19 | disposition home or self-care (01) ==
PROVIDERS: Physician Assistant; Emergency Provider Emergency Medicine Emergency Medical Services; PCP Pediatrics
DX: K56.609 Unspecified intestinal obstruction, unspecified as to partial versus complete obstruction (principal); M79.602 Pain in left arm; R60.0 Localized edema; Z79.899 Other long term (current) drug therapy
CPT/HCPCS: 36415; 74176; 80048; 80076; 80202; 83605; 83735; 85025; 87040; 93971; 96360; 99284

== ENCOUNTER → 2021-05-30 10:34 | Outpatient (BNVA) | payer MEDICARE, SELFPAY | PROVIDERS: Visit Provider Internal Medicine ==

== ENCOUNTER 2021-06-11 13:10 | Outpatient (REF) | payer MEDICARE, SELFPAY | END 2021-06-11 13:11 | disposition home or self-care (01) | LOC: HO.LAB 13:10 | PROVIDERS: PCP Pediatrics; Visit Provider Internal Medicine | DX: R78.81 Bacteremia (principal) | CPT/HCPCS: 87040; 99212 ==

== ENCOUNTER 2021-06-26 10:29 | Outpatient (REF) | payer MEDICARE, SELFPAY ==
--- NOTE | ~2021-06-26 | MM_ITS ---
EXAMINATION: MM SCREENING DIGITAL BREAST TOMOSYNTHESIS, BILATERAL CLINICAL INFORMATION: Screening. Asymptomatic. The lifetime risk of breast cancer based on the Tyrer-Cuzick Model is 4.5%. COMPARISON: Mammography: April 17, 2020 and studies dating back to September 29, 2013 TECHNIQUE: Digital breast tomosynthesis is performed in both the craniocaudal and mediolateral oblique views along with computer-aided detection (CAD). Synthesized 2D images are generated from the tomosynthesis. Bilateral exaggerated craniocaudal views performed. FINDINGS: There are scattered areas of fibroglandular density (ACR BI-RADS breast composition Category b). There are no significant masses, abnormal calcifications, or other abnormalities. MM/MM tomosynthesis screening BI IMPRESSION: There are no significant changes from prior study. ASSESSMENT: BI-RADS 1: Negative RECOMMENDATION: Routine annual mammography screening. This patient's information was entered into a reminder system with a target due date for their next mammogram.
== END 2021-06-26 10:30 | disposition home or self-care (01) ==
LOC: HO.MAMMO 10:29
PROVIDERS: Visit Provider Pediatrics
DX: Z12.31 Encounter for screening mammogram for malignant neoplasm of breast (principal)
CPT/HCPCS: 77063; 77067

== ENCOUNTER 2021-09-23 19:27 | Emergency (ER) | payer MEDICARE, SELFPAY ==
--- NOTE | 2021-09-23 | ECG_ITS ---
Test Reason : CP WEAKNESS Blood Pressure : / mmHG Vent. Rate : 116 BPM Atrial Rate : 116 BPM P-R Int : 096 ms QRS Dur : 066 ms QT Int : 314 ms P-R-T Axes : 072 -08 059 degrees QTc Int : 436 ms Sinus tachycardia with short HI Otherwise normal ECG When compared to the previous EKG of No significant changes seen Referred By: Generic ED Physician Electronically Signed By:Charles Castelan
--- NOTE | ~2021-09-23 | XR_ITS ---
EXAMINATION: XR CHEST CLINICAL INFORMATION: Chest pain, shortness of breath. COMPARISON: 06/09/2019 TECHNIQUE: Frontal view of the chest was obtained. FINDINGS: Nodular foci of pleural parenchymal scarring are again seen in the upper halves of both hemithoraces. No consolidation, pneumothorax, or pleural effusion. Cardiac and mediastinal contours are normal. Trachea is midline. Bones are osteopenic. Osteoarthritis is present in the acromioclavicular and glenohumeral joints. XR/XR chest 1V IMPRESSION: No acute pulmonary findings.
[2021-09-23 19:31] VITALS: BP 102/56; PULSE 120; RESP 18; TEMP 36.7; O2SAT 95; BMI 14.9
--- NOTE | 2021-09-23 20:09 | ED_ITS ---
HPI - Weakness General Chief complaint: Weakness Stated complaint: fatigue, low pulse, low bp Time Seen by Provider: 09/23/21 19:53 Source: patient, family and customer advocacy manager Mode of arrival: ambulatory Limitations: no limitations History of Present Illness HPI Narrative: 66-year-old female with a history of ovarian cancer s/p chemotherapy (no longer on treatment), hx recurrent SBO and multiple abdominal surgeries on previously on TPN, rectovaginal fistula, history of Staph bacteremia due to PICC line infection, diabetes who presents to the ER from home with generalized weakness, fatigue, shortness of breath, and intermittent squeezing chest tightness for the last 3-4 days. History taken from family and patient with staff services manager. She has been going to a facility in [place] for IV fluids every 3 days for hydration. She has chronic diarrhea, up to 20 times per day. She is off TPN and on a full liquid diet. She vomited once yesterday, denies any abdominal pain. MD Complaint: generalized weakness and lack of energy Onset (ago): day(s) Duration: constant Location: generalized Migration: none Severity: moderate Quality: aching Relieving factors: none Exacerbating factors: exertion Context: history of similar Associated symptoms: chest pain, nausea/vomiting and shortness of breath Related Data Home Medications Medication Instructions Recorded Confirmed fluticasone propionate 50 1 spray INTRANASAL DAILY 05/03/21 05/03/21 PRN mcg/actuation nasal spray,suspension melatonin 5 mg tablet 1 tab PO BEDTIME 05/03/21 05/03/21 sennosides 8.6 mg-docusate 2 tab PO DAILY PRN 05/03/21 05/03/21 sodium 50 mg tablet (Senexon-S) Previous Rx's Medication Instructions Recorded vancomycin 1.25 gram intravenous 1.25 g IV Q12H #28 ea 05/14/21 solution fluconazole 150 mg tablet 150 mg PO ONCE #1 tab 05/23/21 (Diflucan) cefuroxime axetil 250 mg tablet 250 mg PO BID 7 Days #14 tab 09/24/21 Allergies Allergy/AdvReac Type Severity Reaction Status Date / Time Iodinated Contrast Allergy Severe DIFF.BREATH Verified 06/11/21 13:16 Media [IV Dye, Iodine ING Containing] Penicillins AdvReac Mild PASSED OUT Verified 06/11/21 13:16 Environmental Allergy Mild ITCHY Uncoded 05/04/20 16:02 EYES/RUNNY NOSE DYE Allergy Unknown Unknown Uncoded 05/03/21 16:31 PENICILLIN G Allergy Unknown Unknown Uncoded 05/03/21 16:31 Review of Systems Verdana 4l Review of Systems: Verdana 4d Verdana 4d Constitutional: No Fever, No Chills ENT/Mouth: No sore throat, No Rhinorrhea, No Swallowing Difficulty Cardiovascular: +Chest Pain, + SOB, No Orthopnea, No Edema Respiratory: No Cough, No Sputum, No Wheezing, No dyspnea GastrointestinalGastrointestinal: No Nausea, No Vomiting, + Diarrhea, No abdominal Pain, No Hematochezia, No Melena Genitourinary: No Dysuria, No Urinary Frequency, No Hematuria Musculoskeletal: No joint pain, No Myalgias Skin: No Skin Lesions, No rash Neuro: + Weakness, No Numbness, No Dizziness, No Headache Psych: No Anxiety/Panic, No Depression Heme/Lymph: No Bruising, No Lymphadenopathy Endocrine: No Polyuria, No Polydipsia [facility] Past Medical History Medical History (Updated 09/24/21 @ 00:14 by AALIYAH Jones) Acute UTI Arthritis Bacteremia Diabetes On total parenteral nutrition Osteoporosis Pelvic cancer Rectovaginal fistula Surgical History History of colon resection Hx of cholecystectomy Social History Social History Household Members: Spouse Housing: House Do you presently have visiting nurse or other home services: Yes (comes every day) Alcohol intake: never Patient Tobacco Use Status: Never used Tobacco Use of substances other than those prescribed or required for medical reasons: No Advance Directives: Yes Advance Directives on File: Yes Advance Directives Date on File: 05/04/21 service: No Current occupational status: retired Physical Exam Verdana 4l Vital Signs: Verdana 4d Verdana 4d Vital Signs: Verdana 4d Verdana 4Bd Last Vital Signs Verdana 4d Cap Maker New 4d Cap Maker New 4d Temp 98.1 F 09/23/21 19:31 Cap Maker New 4d Pulse 97 09/23/21 23:33 Cap Maker New 4d Resp 18 09/23/21 23:33 BP 97/50 L 09/23/21 23:33 Pulse Ox 98 09/23/21 23:33 BMI result Body Mass Index 14.9 Appearance: Alert, elderly and frail female who appears older than stated age. Oriented X3. No acute distress. Eyes: Pupils equal, round and reactive to light. ENT: Pharynx normal. Neck: Normal inspection. Neck supple. CVS: Tachycardic, regular rhythm. Pulses normal. Respiratory: No respiratory distress. Breath sounds normal. Abdomen: Soft with mild diffuse tenderness throughout. normal +BS x4 Skin: Skin warm and dry. Normal skin color. Poor skin turgor. No rashes. Extremities: No lower extremity edema. Thin and frail Neuro: Oriented X 3. No motor deficit. No sensory deficit. Course Course Course Narrative: 66-year-old female with a history of aggressive ovarian cancer, no longer on treatment, history of recurrent SBO and multiple abdominal surgeries on a liquid diet, history of previously being on TPN on having a PICC line infection who presents to the ER with generalized weakness, fatigue intermittent chest pains for the last few days. She also reports shortness of breath with any exertion. She has had 20+ bowel movements per day which is acute on chronic. She is at rectovaginal fistula and recently was treated for UTI with antibiotics. Discussion had with a members at the bedside about their appointment with hospice tomorrow. There to the impression that they were able to continue to get IV fluids and would like to transition this to home rather than having to travel. They are interested in a full lab workup today to see if she has an infection or anything going on for heart. They do not wish to transition to hospice at this time. Will get full septic workup and treat her with IV fluids. Her tachycardia could be driven by dehydration or infection. Reevaluation(s) Reevaluation #1: Labs with stable chronic anemia, no leukocytosis. CXR clear. Lactic acid mildly elevated 2.2, possibly due to dehydration. Getting IVF. BP soft but stable with MAP >65. Getting 2nd liter bolus now. HR improved. Tech performed straight cath for urine and brown sludge returned, no urine. Most consistent with stool and vesiculorectal fistula. Family reports history of rectovaginal fistula. Given her aggressive cancer history, now off treatment and no longer a candidate for treatment, general clinical decline and plan for hospice for evaluation tomorrow will hold off on perusing any further imaging for this. Will empirically treat for UTI with Rocephin. She is not septic at this time. Lactic acid repeat is pending, planning for d/c home. Plan d/w family at the bedside. MDM - Weakness Medical Records Attestation: I reviewed the patient's medical records. Lab Data Attestation: I reviewed the patient's lab results. Result diagrams: 09/23/21 22:17 09/23/21 22:17 Labs: Lab Results 09/23/21 09/23/21 09/23/21 Range/Units 22:17 22:17 22:17 WBC 6.7 (4.8-10.8) X10*3/uL RBC 3.68 L (4.20-5.50) X10*6/uL Hgb 8.1 L (12.0-16.0) g/dl Hct 26.5 L (37.0-47.0) % MCV 72.0 L (80.0-98.0) fL MCH 22.0 L (27.0-33.0) pg MCHC 30.6 L (31.0-35.0) g/dl RDW 20.2 H (11.0-16.0) % Plt Count 552 H (160-400) X10*3/uL MPV 8.8 L (9.4-12.3) fL Immature Gran % (Auto) 0.1 (0.0-0.4) % Neut % (Auto) 37.9 L (45-73) % Lymph % (Auto) 40.7 H (20-40) % [place] % (Auto) 19.5 H (2-11) % Eos % (Auto) 1.2 (0-4) % Baso % (Auto) 0.6 (0-2) % Lymph # (Auto) 2.7 (1.2-4.9) X10*3/uL [place] # (Auto) 1.3 H (0.1-1.2) X10*3/uL Eos # (Auto) 0.1 (0.0-0.4) X10*3/uL Baso # (Auto) 0.0 (0.0-0.2) X10*3/uL Abs Immat Gran (auto) 0.01 (0.00-0.03) X10*3/uL Absolute Neuts (auto) 2.5 (2.0-8.3) x10*3/uL Absolute Nucleated RBC 0.000 (0.0-0.012) X10*3/uL Nucleated RBC % (auto) 0.0 (0.0-0.2) /100WBC Sodium 134 L (135-145) mmol/L Potassium 4.5 (3.3-5.1) mmol/L Chloride 101 (96-108) mmol/L Carbon Dioxide 27 (22-29) mmol/L Anion Gap 11 L (12-20) BUN 13 (9-16) mg/dL Creatinine 0.64 (0.5-1.4) mg/dL Estim Creat Clear Calc 47.3 Estimated GFR > 60 Random Glucose 99 (60-115) mg/dL Lactic Acid 2.2 H* (0.5-2.0) mmol/L Calcium 8.0 L (8.4-10.2) mg/dL Magnesium 1.8 (1.6-2.6) mg/dL Total Bilirubin 0.3 (0.0-1.0) mg/dL Direct Bilirubin < 0.2 (0.0-0.5) mg/dL AST 20 (5-31) U/L ALT 7 (0-31) U/L Alkaline Phosphatase 184 H D (39-117) U/L Troponin I High Sens (<3.5-17.0) ng/L B-Natriuretic Peptide (<100) pg/mL Total Protein 6.9 (6.5-8.0) g/dL Albumin 2.4 L D (3.5-5.0) g/dL Urine Color Urine Appearance Urine pH (5.0-8.0) Ur Specific [place] (1.005-1.025) Urine Protein (NEG-TRACE) MG/DL Urine Glucose (UA) (NEG) MG/DL Urine Ketones (NEG) MG/DL Urine Blood (NEG) Urine Nitrite (NEG) Ur Leukocyte Esterase (NEG) Urine RBC (0) /HPF Urine WBC (0-4) /HPF Urine WBC Clumps Ur Squamous Epith Cells /LPF Ur Renal Epithelial Cell [place] Biurate Crystals Calcium Carbonate Cryst Calcium Phosphate Cryst Calcium Oxalate Crystal Leucine Crystals Cystine Crystals Uric Acid Crystals Triple Phos Crystals Talc Crystals Tyrosine Crystals Other Crystals Amorphous Sediment Urine Bacteria /LPF Epithelial Casts Fatty Casts Hyaline Casts Granular Casts Waxy Casts RBC Casts WBC Casts Other Casts Urine Mucus /LPF Urine Trichomonas Urine Yeast /HPF Urine Sperm Ur Oval Fat Bodies C. difficile Tox B Gene (Negative) COVID-19 ([facility]) (Negative) COVID-19 Clin Com 09/23/21 09/23/21 09/23/21 Range/Units 22:17 22:17 22:17 WBC (4.8-10.8) X10*3/uL RBC (4.20-5.50) X10*6/uL Hgb (12.0-16.0) g/dl Hct (37.0-47.0) % MCV (80.0-98.0) fL MCH (27.0-33.0) pg MCHC (31.0-35.0) g/dl RDW (11.0-16.0) % Plt Count (160-400) X10*3/uL MPV (9.4-12.3) fL Immature Gran % (Auto) (0.0-0.4) % Neut % (Auto) (45-73) % Lymph % (Auto) (20-40) % [place] % (Auto) (2-11) % Eos % (Auto) (0-4) % Baso % (Auto) (0-2) % Lymph # (Auto) (1.2-4.9) X10*3/uL [place] # (Auto) (0.1-1.2) X10*3/uL Eos # (Auto) (0.0-0.4) X10*3/uL Baso # (Auto) (0.0-0.2) X10*3/uL Abs Immat Gran (auto) (0.00-0.03) X10*3/uL Absolute Neuts (auto) (2.0-8.3) x10*3/uL Absolute Nucleated RBC (0.0-0.012) X10*3/uL Nucleated RBC % (auto) (0.0-0.2) /100WBC Sodium (135-145) mmol/L Potassium (3.3-5.1) mmol/L Chloride (96-108) mmol/L Carbon Dioxide (22-29) mmol/L Anion Gap (12-20) BUN (9-16) mg/dL Creatinine (0.5-1.4) mg/dL Estim Creat Clear Calc Estimated GFR Random Glucose (60-115) mg/dL Lactic Acid (0.5-2.0) mmol/L Calcium (8.4-10.2) mg/dL Magnesium (1.6-2.6) mg/dL Total Bilirubin (0.0-1.0) mg/dL Direct Bilirubin (0.0-0.5) mg/dL AST (5-31) U/L ALT (0-31) U/L Alkaline Phosphatase (39-117) U/L Troponin I High Sens < 3.5 (<3.5-17.0) ng/L B-Natriuretic Peptide 13 (<100) pg/mL Total Protein (6.5-8.0) g/dL Albumin (3.5-5.0) g/dL Urine Color Urine Appearance Urine pH (5.0-8.0) Ur Specific [place] (1.005-1.025) Urine Protein (NEG-TRACE) MG/DL Urine Glucose (UA) (NEG) MG/DL Urine Ketones (NEG) MG/DL Urine Blood (NEG) Urine Nitrite (NEG) Ur Leukocyte Esterase (NEG) Urine RBC (0) /HPF Urine WBC (0-4) /HPF Urine WBC Clumps Ur Squamous Epith Cells /LPF Ur Renal Epithelial Cell [place] Biurate Crystals Calcium Carbonate Cryst Calcium Phosphate Cryst Calcium Oxalate Crystal Leucine Crystals Cystine Crystals Uric Acid Crystals Triple Phos Crystals Talc Crystals Tyrosine Crystals Other Crystals Amorphous Sediment Urine Bacteria /LPF Epithelial Casts Fatty Casts Hyaline Casts Granular Casts Waxy Casts RBC Casts WBC Casts Other Casts Urine Mucus /LPF Urine Trichomonas Urine Yeast /HPF Urine Sperm Ur Oval Fat Bodies C. difficile Tox B Gene (Negative) COVID-19 ([facility]) Negative (Negative) COVID-19 Clin Com See Note 09/23/21 09/23/21 Range/Units 22:43 22:43 WBC (4.8-10.8) X10*3/uL RBC (4.20-5.50) X10*6/uL Hgb (12.0-16.0) g/dl Hct (37.0-47.0) % MCV (80.0-98.0) fL MCH (27.0-33.0) pg MCHC (31.0-35.0) g/dl RDW (11.0-16.0) % Plt Count (160-400) X10*3/uL MPV (9.4-12.3) fL Immature Gran % (Auto) (0.0-0.4) % Neut % (Auto) (45-73) % Lymph % (Auto) (20-40) % [place] % (Auto) (2-11) % Eos % (Auto) (0-4) % Baso % (Auto) (0-2) % Lymph # (Auto) (1.2-4.9) X10*3/uL [place] # (Auto) (0.1-1.2) X10*3/uL Eos # (Auto) (0.0-0.4) X10*3/uL Baso # (Auto) (0.0-0.2) X10*3/uL Abs Immat Gran (auto) (0.00-0.03) X10*3/uL Absolute Neuts (auto) (2.0-8.3) x10*3/uL Absolute Nucleated RBC (0.0-0.012) X10*3/uL Nucleated RBC % (auto) (0.0-0.2) /100WBC Sodium (135-145) mmol/L Potassium (3.3-5.1) mmol/L Chloride (96-108) mmol/L Carbon Dioxide (22-29) mmol/L Anion Gap (12-20) BUN (9-16) mg/dL Creatinine (0.5-1.4) mg/dL Estim Creat Clear Calc Estimated GFR Random Glucose (60-115) mg/dL Lactic Acid (0.5-2.0) mmol/L Calcium (8.4-10.2) mg/dL Magnesium (1.6-2.6) mg/dL Total Bilirubin (0.0-1.0) mg/dL Direct Bilirubin (0.0-0.5) mg/dL AST (5-31) U/L ALT (0-31) U/L Alkaline Phosphatase (39-117) U/L Troponin I High Sens (<3.5-17.0) ng/L B-Natriuretic Peptide (<100) pg/mL Total Protein (6.5-8.0) g/dL Albumin (3.5-5.0) g/dL Urine Color ORANGE A Urine Appearance TURBID Urine pH 6.5 (5.0-8.0) Ur Specific [place] >= 1.030 H (1.005-1.025) Urine Protein 2+ H (NEG-TRACE) MG/DL Urine Glucose (UA) 250 H (NEG) MG/DL Urine Ketones 5 (NEG) MG/DL Urine Blood 3+ H (NEG) Urine Nitrite POS H (NEG) Ur Leukocyte Esterase 2+ H (NEG) Urine RBC 10-14 H (0) /HPF Urine WBC 1-4 (0-4) /HPF Urine WBC Clumps Cancelled Ur Squamous Epith Cells NONE /LPF Ur Renal Epithelial Cell Cancelled [place] Biurate Crystals Cancelled Calcium Carbonate Cryst Cancelled Calcium Phosphate Cryst Cancelled Calcium Oxalate Crystal Cancelled Leucine Crystals Cancelled Cystine Crystals Cancelled Uric Acid Crystals Cancelled Triple Phos Crystals Cancelled Talc Crystals Cancelled Tyrosine Crystals Cancelled Other Crystals Cancelled Amorphous Sediment Cancelled Urine Bacteria 4+ /LPF Epithelial Casts Cancelled Fatty Casts Cancelled Hyaline Casts Cancelled Granular Casts Cancelled Waxy Casts Cancelled RBC Casts Cancelled WBC Casts Cancelled Other Casts Cancelled Urine Mucus 2+ /LPF Urine Trichomonas Cancelled Urine Yeast TRACE /HPF Urine Sperm Cancelled Ur Oval Fat Bodies Cancelled C. difficile Tox B Gene NEGATIVE (Negative) COVID-19 ([facility]) (Negative) COVID-19 Clin Com ABG Data Attestation: I personally reviewed and interpreted this ABG as follows: ECG Data Attestation: I personally reviewed and interpreted this ECG as follows: ECG interpretation date: 09/23/21 ECG interpretation time: 22:10 Prior ECG tracings: available for review Interpretation: Sinus tachycardia, heart rate 116 beats per minute, NE interval short, 96 MS, normal QTC, no ST segment elevations or depressions Critical Care Time Critical Care Time Critical Care Time: Yes Total Critical Care Time: 36 Attestation: I have personally provided critical care time exclusive of time spent on separately billable procedures. Time includes review of lab data, radiology results, lengthy discussion at the bedside re: goals of care, frequent bedside reassessments, and monitoring for potential decompensation. Intervention performed as documented. Discharge Plan Discharge Clinical Impression: Acute UTI Patient Disposition: Still a Patient Instructions: Urinary Tract Infection in Women (DC) Additional Instructions: Your workup today showed you have a UTI. Take the prescribed antibiotic starting tomorrow. Follow up with the Hospice team tomorrow as planned Recommend Imodium 2 mg after eat loose stool with a maximum of 16 mg per day. If you develop new or worsening symptoms call 911 or come back to the ER for further evaluation. Prescriptions: New cefuroxime axetil 250 mg tablet 250 mg PO BID 7 Days Qty: 14 0RF No Action fluconazole [Diflucan] 150 mg tablet 150 mg PO ONCE Qty: 1 0RF sennosides-docusate sodium [Senexon-S] 8.6-50 mg tablet 2 tab PO DAILY PRN (Reason: Constipation) 0RF fluticasone propionate 50 mcg/actuation spray,suspension 1 spray intranasal DAILY PRN (Reason: Allergy Symptoms) 0RF melatonin 5 mg tablet 1 tab PO BEDTIME 0RF vancomycin 1.25 gram recon soln 1.25 g IV Q12H Qty: 28 0RF
[2021-09-23 22:22] LABS: MANUAL DIFF FLAG NO
[2021-09-23 22:24] LABS: Basophils Percent Auto 0.6 % (0-2); Eosinophils Absolute Auto 0.1 X10*3/uL (0.0-0.4); Eosinophils Percent Auto 1.2 % (0-4); Hematocrit 26.5 % (37.0-47.0); Hemoglobin 8.1 g/dl (12.0-16.0); Imm Gran Abs Auto 0.01 X10*3/uL (0.00-0.03); Imm Gran Pct Auto 0.1 % (0.0-0.4); Lymphocytes Absolute Auto 2.7 X10*3/uL (1.2-4.9); Lymphocytes Percent Auto 40.7 % (20-40); Mean Corpuscular HGB Conc 30.6 g/dl (31.0-35.0); Mean Platelet Volume 8.8 fL (9.4-12.3); Monocytes Absolute Auto 1.3 X10*3/uL (0.1-1.2); Monocytes Percent Auto 19.5 % (2-11); Neutrophils Absolute Auto 2.5 x10*3/uL (2.0-8.3); Neutrophils Percent Auto 37.9 % (45-73); Platelet Count 552 X10*3/uL (160-400); Red Blood Count 3.68 X10*6/uL (4.20-5.50); Red Cell Distribution Width 20.2 % (11.0-16.0); White Blood Count 6.7 X10*3/uL (4.8-10.8)
[2021-09-23 22:40] LABS: COVID-19 Test Negative (Negative)
[2021-09-23 22:44] LABS: Alanine Aminotransferase 7 U/L (0-31); Albumin Level 2.4 g/dL (3.5-5.0); Alkaline Phosphatase 184 U/L (39-117); Anion Gap 11 (12-20); Aspartate Amino Transferase 20 U/L (5-31); Bilirubin Direct < 0.2 mg/dL (0.0-0.5); Bilirubin Total 0.3 mg/dL (0.0-1.0); Blood Urea Nitrogen 13 mg/dL (9-16); Carbon Dioxide 27 mmol/L (22-29); Chloride 101 mmol/L (96-108); Creatinine Clr Calc Pharmacy 47.3; Estimated Glomerular Filt Rate > 60; Glucose Random 99 mg/dL (60-115); Magnesium 1.8 mg/dL (1.6-2.6); Potassium 4.5 mmol/L (3.3-5.1); Sodium 134 mmol/L (135-145); Total Protein 6.9 g/dL (6.5-8.0)
[2021-09-23 22:46] LABS: B Type Natriuretic Peptide 13 pg/mL (<100)
[2021-09-23 22:47] LABS: Troponin-I High Sensitivity < 3.5 ng/L (<3.5-17.0)
[2021-09-23 22:51] VITALS: BP 92/40; PULSE 108; O2SAT 95
[2021-09-23] MEDS: 0.9 % Sodium Chloride 1,000 ML 999 ML IVCONT (22:52)
[2021-09-23 22:57] LABS: Lactic Acid 2.2 mmol/L (0.5-2.0)
[2021-09-23 23:15] LABS: Appearance Urine TURBID; PH 6.5 (5.0-8.0); UACC Culture Trigger YES
[2021-09-23 23:33] VITALS: BP 97/50; PULSE 97; RESP 18; O2SAT 98
[2021-09-23 23:33] LABS: Color Urine ORANGE; Glucose Urine UA 250 MG/DL (NEG); Leukocyte Esterase Urine 2+ (NEG); Nitrite Urine POS (NEG); Specific Gravity - Urine >= 1.030 (1.005-1.025); Urine Blood 3+ (NEG); Urine Ketones 5 MG/DL (NEG); Urine Protein 2+ MG/DL (NEG-TRACE)
[2021-09-23 23:35] LABS: Bacteria Urine 4+ /LPF; Mucus Urine 2+ /LPF
[2021-09-23] MEDS: cefTRIAXone sodium 1 GM in 0.9 % Sodium Chloride 50 ML IV (23:37)
[2021-09-23] MEDS: Lactated Ringers 1,000 ML 999 ML IV (23:38)
[2021-09-23 23:42] LABS: CDiff Gene PCR NEGATIVE (Negative)
--- NOTE | 2021-09-23 23:44 | PC.NURSE ---
Pt resting on stretcher in NAD, breathing with ease on RA, VSS with soft BP. Pt aaox4, denies pain/discomfort. Pt medicated per MAR, aware and agreeable to plan for abx and additional fluids. Pt stretcher in low locked position, rails raised, call mcadams within reach, awaiting dispo.
[2021-09-23] MEDS: Loperamide HCl 2 MG CAPSULE 4 MG PO (23:50)
[2021-09-24 00:41] LABS: Reflex Lactate? Lactic Acid Added
[2021-09-24 01:18] VITALS: BP 110/45; PULSE 93; RESP 17; O2SAT 96
[2021-09-24 01:21] LABS: ~Lactic Acid-LAB USE ONLY 1.5 mmol/L (0.5-2.0)
== END 2021-09-24 01:48 | disposition home or self-care (01) ==
PROVIDERS: Physician Assistant; Emergency Provider Internal Medicine
DX: N39.0 Urinary tract infection, site not specified (principal); R07.89 Other chest pain; R11.2 Nausea with vomiting, unspecified; R06.02 Shortness of breath; Z20.822 Contact with and (suspected) exposure to COVID-19; Z79.899 Other long term (current) drug therapy
CPT/HCPCS: 36415; 71045; 80048; 80076; 81001; 81003; 83605; 83735; 83880; 84484; 85025; 87040; 87086; 87493; 87635; 93005; 96360; 96361; 99284; J0696

== ENCOUNTER 2021-10-01 16:10 | Inpatient (IN) | payer MEDICARE, SELFPAY ==
--- NOTE | ~2021-10-01 | CT_ITS ---
EXAMINATION: CT ABDOMEN AND PELVIS WITHOUT CONTRAST CLINICAL INFORMATION: Lower abdominal pain. Question of colovesicular fistula. COMPARISON: 05.17.2021 TECHNIQUE: Multidetector volumetric imaging was performed from the superior aspect of the liver through the pubic symphysis. Sagittal and coronal reformatted images were obtained on the technologist's workstation. This CT examination was performed using dose optimization techniques as appropriate, variously including the following: *Automated exposure control *Adjustment of mA and/or kV according to patient size (this includes techniques or standardized protocols for targeted exams where dose is matched to indication/reason for exam; i.e. extremities or head) *Use of iterative reconstruction technique DLP: 256 mGy-cm FINDINGS: LUNG BASES: Increasing size of subcentimeter nodules within the bilateral lower lobes (see jordan images). Similar appearing subpleural nodules within the right lower lobe posteriorly. LIVER, GALLBLADDER, AND BILIARY TREE: Multiple new hepatic metastases are present, largest within the lateral segment measures 4.7 cm. No intra or extrahepatic biliary dilatation. Cholecystectomy. PANCREAS: Unremarkable. SPLEEN: Unremarkable. ADRENAL GLANDS: Unremarkable. KIDNEYS AND URETERS: Mild right hydronephrosis and left pelvocaliectasis is new from prior. Mild right hydroureter. Left ureter normal in course and caliber. BLADDER: Contains a Moses catheter, which appears to extend through the bladder into a loop of small bowel GASTROINTESTINAL TRACT: Again seen is a small bowel obstruction with transition point in the region of a distal anastomosis within the right hemiabdomen. The small bowel is dilated and thick walled leading to a [id number] anastomosis, and approximately, similar in configuration to the prior examination. ABDOMINAL WALL: Incision within the lower abdominal wall now contains incisional malignant implants measuring up to 1.3 cm. There is also a conglomerate peritoneal implants anterosuperior to the bladder inseparable from the ventral abdominal wall. LYMPH NODES: Numerous pathologically enlarged mesenteric lymph nodes and peritoneal implants increase in size and number from the prior. Increasing size of numerous retroperitoneal, bilateral iliac chain and right inguinal lymph nodes. VASCULAR: Aorta is atherosclerotic but normal caliber. PELVIC VISCERA: Hysterectomy and bilateral oophorectomy. OSSEOUS STRUCTURES: No acute or suspicious osseous abnormalities. CT/CT abdomen pelvis wo con IMPRESSION: * Moses catheter within the bladder extends into a loop of small bowel within the pelvis, confirming an enterovesicular fistula. This does not appear to involve the colon. * Similar appearance of the dilated loops of small bowel within the lower abdomen beginning at the distal most enteroenteric anastomosis extending through a side to side enteroenteric anastomosis. The patient is not obstructed clinically, therefore this may represent more of an ileus than a partial mechanical obstruction. * Extensive mesenteric implants and worsening abdominal pelvic adenopathy. * New peritoneal implants anterosuperior to the bladder contiguous with the ventral abdominal wall and incisional implants within the ventral subcutaneous fat. * Numerous new hepatic metastases. * Increasing size and number of numerous pulmonary nodules. This critical result was discussed with Dr Shubham Azul at 10/02/2021 2:09 AM and it was ascertained that the content and urgency of the report was understood at the time of direct communication.
[2021-10-01 16:24] VITALS: BP 99/49; PULSE 99; RESP 18; TEMP 36.7; O2SAT 99; BMI 17.1
[2021-10-01 20:24] VITALS: BP 99/48; PULSE 104; RESP 18; TEMP 36.9; O2SAT 92
--- NOTE | 2021-10-01 23:06 | ED_ITS ---
HPI - Female Genitourinary General Chief complaint: Urogenital-Female Stated complaint: uti Time Seen by Provider: 10/01/21 23:06 Source: patient and family History of Present Illness HPI Narrative: Patient's history of ovarian cancer with pelvic carcinomatosis with history of small-bowel obstruction and recto vaginal fistula, history of staff epidermidis and staph lugdunesis bacteremia in 05/08 comes here for 3 weeks of increasing pain passing feces in the urine pain got worse in last 1 week nauseated and vomited 2 days ago having good appetite but complaining of lower pelvic pain no fever no chills no abdominal distention Related Data Home Medications Medication Instructions Recorded Confirmed fluticasone propionate 50 1 spray INTRANASAL DAILY PRN 05/03/21 05/03/21 mcg/actuation nasal spray,suspension melatonin 5 mg tablet 1 tab PO BEDTIME 05/03/21 05/03/21 sennosides 8.6 mg-docusate sodium 2 tab PO DAILY PRN 05/03/21 05/03/21 50 mg tablet (Senexon-S) Previous Rx's Medication Instructions Recorded vancomycin 1.25 gram intravenous 1.25 g IV Q12H #28 ea 05/14/21 solution fluconazole 150 mg tablet 150 mg PO ONCE #1 tab 05/23/21 (Diflucan) cefuroxime axetil 250 mg tablet 250 mg PO BID 7 Days #14 tab 09/24/21 Allergies Allergy/AdvReac Type Severity Reaction Status Date / Time Iodinated Contrast Media Allergy Severe DIFF.BREATH Verified 06/11/21 13:16 [IV Dye, Iodine Containing] ING Penicillins AdvReac Mild PASSED OUT Verified 06/11/21 13:16 Environmental Allergy Mild ITCHY Uncoded 05/04/20 16:02 EYES/RUNNY NOSE DYE Allergy Unknown Unknown Uncoded 05/03/21 16:31 PENICILLIN G Allergy Unknown Unknown Uncoded 05/03/21 16:31 Review of Systems Review of Systems: Yes all other systems are reviewed and are negative [facility] Past Medical History Medical History Acute UTI Arthritis Bacteremia Diabetes On total parenteral nutrition Osteoporosis Pelvic cancer Rectovaginal fistula Surgical History History of colon resection Hx of cholecystectomy Social History Social History Household Members: Spouse Housing: House Do you presently have visiting nurse or other home services: Yes (comes every day) Alcohol intake: never Patient Tobacco Use Status: Never used Tobacco Advance Directives: Yes Advance Directives on File: Yes Advance Directives Date on File: 05/04/21 service: No Current occupational status: retired Physical Exam Vital Signs: Vital Signs: Last Vital Signs Temp 98.5 F 10/02/21 01:04 Pulse 93 10/02/21 01:04 Resp 15 10/02/21 01:28 BP 109/45 L 10/02/21 01:04 Pulse Ox 96 10/02/21 01:04 BMI result Body Mass Index 17.1 Appearance: Alert. Oriented X3. Thin emaciated in mild distress Eyes: Pallor+ ENT: Pharynx normal. Oral Mucosa moist Neck: Normal inspection. Neck supple. CVS: Normal heart rate and rhythm. Pulses normal. Respiratory: No respiratory distress. Equal air entry bilateral, no wheezing/rales/rhonchi Abdomen: Soft, diffuse pelvic tenderness, with guarding no rebound tenderness, Bowel sounds are present, no mass palpable, no CVA tenderness Skin: Skin warm and dry. Normal skin color. Normal skin turgor. Extremities: No lower extremity edema. No calf tenderness Neuro: Oriented X 3. No motor deficit. MDM - Female Genitourinary MDM Narrative Medical decision making narrative: 66-year-old female with a history of ovarian cancer s/p chemotherapy (no longer on treatment), hx recurrent SBO and multiple abdominal surgeries on previously on TPN, rectovaginal fistula, history of Staph bacteremia was seen here on 09/23 and decided to go for hospice care and plan was to get IV hydration at home came here for increased abdominal pain and worsening of her current condition at this time patient if refusing the hospice care says that did not come home and did give her any IV fluids would like supportive treatment and admission at this time patient would like to have supportive treatment and like to be admitted Lab Data Attestation: I reviewed the patient's lab results. Result diagrams: 10/01/21 23:18 10/01/21 23:18 Labs: Lab Results 02/14/22 02/14/22 02/14/22 Range/Units 23:18 23:18 23:18 WBC 9.6 (4.8-10.8) X10*3/uL RBC 3.68 L (4.20-5.50) X10*6/uL Hgb 8.1 L (12.0-16.0) g/dl Hct 27.9 L (37.0-47.0) % MCV 75.8 L (80.0-98.0) fL MCH 22.0 L (27.0-33.0) pg MCHC 29.0 L (31.0-35.0) g/dl RDW 20.2 H (11.0-16.0) % Plt Count 418 H (160-400) X10*3/uL MPV 9.6 (9.4-12.3) fL Immature Gran % (Auto) 0.4 (0.0-0.4) % Neut % (Auto) 60.8 (45-73) % Lymph % (Auto) 26.2 (20-40) % [place] % (Auto) 11.1 H (2-11) % Eos % (Auto) 1.0 (0-4) % Baso % (Auto) 0.5 (0-2) % Lymph # (Auto) 2.5 (1.2-4.9) X10*3/uL [place] # (Auto) 1.1 (0.1-1.2) X10*3/uL Eos # (Auto) 0.1 (0.0-0.4) X10*3/uL Baso # (Auto) 0.1 (0.0-0.2) X10*3/uL Abs Immat Gran (auto) 0.04 H (0.00-0.03) X10*3/uL Absolute Neuts (auto) 5.8 (2.0-8.3) x10*3/uL Absolute Nucleated RBC 0.000 (0.0-0.012) X10*3/uL Nucleated RBC % (auto) 0.0 (0.0-0.2) /100WBC Sodium 138 (135-145) mmol/L Potassium 5.0 (3.3-5.1) mmol/L Chloride 105 (96-108) mmol/L Carbon Dioxide 26 (22-29) mmol/L Anion Gap 12 (12-20) BUN 13 (9-16) mg/dL Creatinine 0.68 (0.5-1.4) mg/dL Estim Creat Clear Calc 51.1 Estimated GFR > 60 Random Glucose 122 H (60-115) mg/dL Lactic Acid 3.0 H* (0.5-2.0) mmol/L Calcium 7.6 L (8.4-10.2) mg/dL Total Bilirubin < 0.2 (0.0-1.0) mg/dL AST 31 D (5-31) U/L ALT 10 (0-31) U/L Alkaline Phosphatase 189 H (39-117) U/L Total Protein 6.8 (6.5-8.0) g/dL Albumin 2.2 L (3.5-5.0) g/dL Discharge Plan Discharge Clinical Impression: Abdominal pain, UTI (urinary tract infection), Disseminated ovarian cancer Patient Disposition: Admitted As Inpatient
[2021-10-01 23:31] LABS: MANUAL DIFF FLAG NO
[2021-10-01 23:32] LABS: Basophils Absolute Auto 0.1 X10*3/uL (0.0-0.2); Basophils Percent Auto 0.5 % (0-2); Eosinophils Absolute Auto 0.1 X10*3/uL (0.0-0.4); Hematocrit 27.9 % (37.0-47.0); Hemoglobin 8.1 g/dl (12.0-16.0); Imm Gran Abs Auto 0.04 X10*3/uL (0.00-0.03); Imm Gran Pct Auto 0.4 % (0.0-0.4); Lymphocytes Absolute Auto 2.5 X10*3/uL (1.2-4.9); Lymphocytes Percent Auto 26.2 % (20-40); Mean Corpuscular Volume 75.8 fL (80.0-98.0); Mean Platelet Volume 9.6 fL (9.4-12.3); Monocytes Absolute Auto 1.1 X10*3/uL (0.1-1.2); Monocytes Percent Auto 11.1 % (2-11); Neutrophils Absolute Auto 5.8 x10*3/uL (2.0-8.3); Neutrophils Percent Auto 60.8 % (45-73); Platelet Count 418 X10*3/uL (160-400); Red Blood Count 3.68 X10*6/uL (4.20-5.50); Red Cell Distribution Width 20.2 % (11.0-16.0); White Blood Count 9.6 X10*3/uL (4.8-10.8)
[2021-10-01 23:48] LABS: Alanine Aminotransferase 10 U/L (0-31); Albumin Level 2.2 g/dL (3.5-5.0); Alkaline Phosphatase 189 U/L (39-117); Anion Gap 12 (12-20); Aspartate Amino Transferase 31 U/L (5-31); Bilirubin Total < 0.2 mg/dL (0.0-1.0); Blood Urea Nitrogen 13 mg/dL (9-16); Calcium 7.6 mg/dL (8.4-10.2); Carbon Dioxide 26 mmol/L (22-29); Chloride 105 mmol/L (96-108); Creatinine Clr Calc Pharmacy 51.1; Estimated Glomerular Filt Rate > 60; Glucose Random 122 mg/dL (60-115); Sodium 138 mmol/L (135-145); Total Protein 6.8 g/dL (6.5-8.0)
[2021-10-01] MEDS: 0.9 % Sodium Chloride 1,000 ML 999 ML IV (23:54)
[2021-10-02] VITALS (16 sets, daily range): BP systolic 91–161; BP diastolic 41–105; PULSE 84–102; RESP 12–20; TEMP 36.3–37; O2SAT 91–100
[2021-10-02] MEDS: Morphine Sulfate 2 MG/ML CARTRIDGE IVPUSH (01:28)
[2021-10-02 01:29] LABS: Reflex Lactate? Lactic Acid Added
[2021-10-02] MEDS: ondansetron HCL 4 MG/2 ML VIAL IVPUSH ×2 (01:35→10:23)
[2021-10-02] MEDS: vancomycin HCL 1,000 MG in 0.9 % Sodium Chloride 250 ML 270 MG IV (01:49)
[2021-10-02] MEDS: levoFLOXacin/D5W 500 MG/100 ML PIGGYBACK 100 MG IV (01:50)
[2021-10-02 02:11] LABS: Appearance Urine TURBID; Color Urine YELLOW; Glucose Urine UA NEG (NEG); Leukocyte Esterase Urine 2+ (NEG); Nitrite Urine POS (NEG); Specific Gravity - Urine >= 1.030 (1.005-1.025); UACC Culture Trigger YES; Urine Blood 3+ (NEG); Urine Ketones NEG (NEG); Urine Protein 2+ MG/DL (NEG-TRACE)
[2021-10-02 02:29] LABS: Bacteria Urine 4+ /LPF; Mucus Urine 2+ /LPF; Squamous Epithelial Cell Urine 2+ /LPF
[2021-10-02 02:35] LABS: Calcium Oxalate Crystals Urine 2+ /LPF
[2021-10-02 02:36] LABS: Granular Casts Urine 0-2 /LPF
--- NOTE | 2021-10-02 02:54 | PC.NURSE ---
Patient's results of CAT Scan confirmed worsening liver cancer with mets to lungs. Also diaz catheter extended up in small bowel which confirmed enterovesicular fistula. Catheter was pulled down to get it out of small bowel.
--- NOTE | 2021-10-02 04:12 | PM.IMHP ---
History of Present Illness Date of Service: 10/02/21 Chief Complaint: abd Pain ? 66-year-old female with a past medical history of diabetes, history of ovarian ca, hx Enterovesical Fistula; Wears diapers; has Fecal contents in urine p/w Burning/redness of Labia and Burning urination/Abd pain for couple days Patient reports that she has been having lower abdominal discomfort, burning urination, burning sensation in the vaginal area; denies any chest pain or palpitations. Denies any fevers. Reports that she has been passing gas. Denies any nausea. Reports he has been having decreased oral intake for the past couple days. Denies any numbness tingling or focal weakness. Review of all other systems is negative except mentioned above ER course: For ER team patient noted to have fecal swelling in the private area, Moses catheter was placed; urinalysis abnormal consistent with UTI. Given antibiotics. Also had CT abdomen pelvis done which showed chronic findings along with PDS and intravesical fistula. Admitted for further management. [facility] Medical History Acute UTI Arthritis Bacteremia Diabetes On total parenteral nutrition Osteoporosis Pelvic cancer Rectovaginal fistula Pertinent family history: Reviewed Surgical History History of colon resection Hx of cholecystectomy Social History Household Members: Spouse Housing: House Do you presently have visiting nurse or other home services: Yes (comes every day) Alcohol intake: never Patient Tobacco Use Status: Never used Tobacco Use of substances other than those prescribed or required for medical reasons: No Advance Directives: Yes Advance Directives on File: Yes Advance Directives Date on File: 05/04/21 Patient : No service: No Current occupational status: retired Meds Allergies Allergy/AdvReac Type Severity Reaction Status Date / Time Iodinated Contrast Media Allergy Severe DIFF.BREATH Verified 06/11/21 13:16 [IV Dye, Iodine Containing] ING Penicillins AdvReac Mild PASSED OUT Verified 06/11/21 13:16 Environmental Allergy Mild ITCHY Uncoded 05/04/20 16:02 EYES/RUNNY NOSE DYE Allergy Unknown Unknown Uncoded 05/03/21 16:31 PENICILLIN G Allergy Unknown Unknown Uncoded 05/03/21 16:31 Active Medications: Current Medications Acetaminophen (Acetaminophen 325 Mg Tablet) 650 mg PO Q6H PRN PRN Reason: Pain, Mild (Pain Scale 1-3) Famotidine (Famotidine 20 Mg Tablet) 20 mg PO BID PRN PRN Reason: heartburn Fentanyl (Fentanyl 25 Mcg Patch.Td72) mcg TRANSDERMA Q3D [facility] Heparin Sodium (Porcine) (Heparin Sodium,Porcine 5,000 Unit/Ml Vial) 5,000 unit SUBCUT Q8H [facility] Dextrose/Sodium Chloride (D51/2ns) 1,000 mls @ 75 mls/hr IVCONT .[id number] [facility] Melatonin (Melatonin 3 Mg Tablet) 6 mg PO BEDTIME PRN PRN Reason: Insomnia Pharmacy Consult (Consult Rx Vancomycin Dosing) 1 each MISCELLANE DAILY PRN PRN Reason: Consult order Senna/Docusate Sodium (Sennosides/Docusate Sodium Tablet) 2 tab PO DAILY [facility] Sodium Chloride (0.9 % Sodium Chloride Flush 3 Ml Syringe) 3 ml IVFLUSH QSHIFT [facility] Home Medications Medication Instructions Recorded Confirmed Last Taken Type melatonin 5 mg tablet 1 tab PO BEDTIME 05/03/21 10/02/21 05/02/21 History acetaminophen 325 mg tablet 3 tab PO Q6H PRN 10/02/21 10/02/21 Unknown History famotidine 20 mg tablet 1 tab PO BID PRN 10/02/21 10/02/21 Unknown History fentanyl 25 mcg/hr transdermal 1 patch TOPICAL Q3D 10/02/21 10/02/21 Unknown History patch metformin 1,000 mg tablet 1 tab PO BID 10/02/21 10/02/21 Unknown History ondansetron 4 mg disintegrating 1 tab PO Q6H 10/02/21 10/02/21 Unknown History tablet sennosides 8.6 mg-docusate sodium 2 tab PO DAILY 10/02/21 10/02/21 Unknown History 50 mg tablet (Senna Plus) Physical Exam Vital Signs and Narrative: Vital Signs: Last Vital Signs Temp 98.3 F 10/02/21 04:06 Pulse 91 10/02/21 04:06 Resp 12 10/02/21 04:06 BP 104/44 L 10/02/21 04:06 Pulse Ox 95 10/02/21 04:06 BMI result Body Mass Index 17.1 Gen: Appears be in no acute distress HEENT: NCAT, Moist mucosa. Pulmonary: Vesicular breath sounds, fair air entry CVS: Normal S1-S2 Abdomen: BS+, Soft, Nontender Extremities: Warm well perfused Neuro: Alert and awake. Genitourinary: Examined along with the female veterinary technician assistant. Patient noted to have fecal soiling in the private area, Moses in place, mild erythema of the labia majora noted Results Labs CBC and Chem 7: 10/02/21 06:00 10/02/21 04:31 Labs: Laboratory Results - last 24 hr 10/01/21 10/01/21 10/01/21 23:18 23:18 23:18 MCV 75.8 L MCH 22.0 L MCHC 29.0 L RDW 20.2 H Plt Count 418 H MPV 9.6 Immature Gran % (Auto) 0.4 Neut % (Auto) 60.8 Lymph % (Auto) 26.2 [place] % (Auto) 11.1 H Eos % (Auto) 1.0 Baso % (Auto) 0.5 Lymph # (Auto) 2.5 [place] # (Auto) 1.1 Eos # (Auto) 0.1 Baso # (Auto) 0.1 Abs Immat Gran (auto) 0.04 H Absolute Neuts (auto) 5.8 Absolute Nucleated RBC 0.000 Nucleated RBC % (auto) 0.0 Anion Gap 12 Estim Creat Clear Calc 51.1 Estimated GFR > 60 Random Glucose 122 H Lactic Acid 3.0 H* Calcium 7.6 L Total Bilirubin < 0.2 AST 31 D ALT 10 Alkaline Phosphatase 189 H Total Protein 6.8 Albumin 2.2 L Urine Color Urine Appearance Urine pH Ur Specific [place] Urine Protein Urine Glucose (UA) Urine Ketones Urine Blood Urine Nitrite Ur Leukocyte Esterase Urine RBC Urine WBC Ur Squamous Epith Cells Calcium Oxalate Crystal Urine Bacteria Granular Casts Urine Mucus 10/02/21 02:00 MCV MCH MCHC RDW Plt Count MPV Immature Gran % (Auto) Neut % (Auto) Lymph % (Auto) [place] % (Auto) Eos % (Auto) Baso % (Auto) Lymph # (Auto) [place] # (Auto) Eos # (Auto) Baso # (Auto) Abs Immat Gran (auto) Absolute Neuts (auto) Absolute Nucleated RBC Nucleated RBC % (auto) Anion Gap Estim Creat Clear Calc Estimated GFR Random Glucose Lactic Acid Calcium Total Bilirubin AST ALT Alkaline Phosphatase Total Protein Albumin Urine Color YELLOW Urine Appearance TURBID Urine pH 6.0 Ur Specific [place] >= 1.030 H Urine Protein 2+ H Urine Glucose (UA) NEG Urine Ketones NEG Urine Blood 3+ H Urine Nitrite POS H Ur Leukocyte Esterase 2+ H Urine RBC 5-9 H Urine WBC 15-29 H Ur Squamous Epith Cells 2+ Calcium Oxalate Crystal 2+ Urine Bacteria 4+ Granular Casts 0-2 Urine Mucus 2+ Imaging Radiologist's Impressions: Impressions Abdomen/Pelvis CT 10/02/21 01:35 IMPRESSION: * Moses catheter within the bladder extends into a loop of small bowel within the pelvis, confirming an enterovesicular fistula. This does not appear to involve the colon. * Similar appearance of the dilated loops of small bowel within the lower abdomen beginning at the distal most enteroenteric anastomosis extending through a side to side enteroenteric anastomosis. The patient is not obstructed clinically, therefore this may represent more of an ileus than a partial mechanical obstruction. * Extensive mesenteric implants and worsening abdominal pelvic adenopathy. * New peritoneal implants anterosuperior to the bladder contiguous with the ventral abdominal wall and incisional implants within the ventral subcutaneous fat. * Numerous new hepatic metastases. * Increasing size and number of numerous pulmonary nodules. This critical result was discussed with Dr Shubham Azul at 10/02/2021 2:09 AM and it was ascertained that the content and urgency of the report was understood at the time of direct communication. Assessment and Plan Plan 66-year-old female with a past medical history of diabetes, history of ovarian ca, hx Enterovesical Fistula; Wears diapers; has Fecal contents in urine p/w Burning/redness of Labia and Burning urination/Abd pain for couple days; noted UTI/Labial cellulits; CT abdomen showed possible Ileus; Enterovesical Fistula. Admitted for following. Abd pain/ILeus:? NPO IV fluids General surgery consult. Supportive care.? fluids. UTI/Labial Cellulitis:? Continue Levaquin.? ID consult. Moses cath placed in ER for Hygeine/Prevent soiling. Moses catheter within the bladder extends into a loop of small bowelwithin the pelvis, confirming an enterovesicular fistula--> Later Moses cath was withdrawn a little in ER. hx Ovarian Ca: oncology Follow up. Anemia: basline Hgb around 8.0; AM CBC showed Hgb of 6.6; Specimen hemloyzed; pt denies active signs of bleeding. Repeat STAT CBC. Diabetes:? Insulin sliding scale Diet:NPO DVT prophylaxis : [facility] Code status:? Full Code Quality Stroke Does the patient have a stroke diagnosis?: No VTE Prior VTE?: No VTE Risk Level:: Medical - moderate - high VTE Device Contraindication: Treatment Not Indicated VTE Drug Contraindication: N/A - Med Ordered
[2021-10-02] MEDS: Dextrose 5 % and 0.45 % NaCl 1,000 ML 75 ML IVCONT (04:22)
[2021-10-02 04:46] LABS: ~Lactic Acid-LAB USE ONLY 1.7 mmol/L (0.5-2.0)
[2021-10-02 04:54] LABS: Anion Gap 9 (12-20); Blood Urea Nitrogen 11 mg/dL (9-16); Calcium 6.9 mg/dL (8.4-10.2); Carbon Dioxide 22 mmol/L (22-29); Chloride 110 mmol/L (96-108); Creatinine Clr Calc Pharmacy 62.1; Estimated Glomerular Filt Rate > 60; Glucose Random 77 mg/dL (60-115); Potassium 4.2 mmol/L (3.3-5.1); Sodium 137 mmol/L (135-145)
[2021-10-02 06:04] LABS: Basophils Percent Auto 0.6 % (0-2); Eosinophils Absolute Auto 0.1 X10*3/uL (0.0-0.4); Eosinophils Percent Auto 1.5 % (0-4); Hematocrit 21.1 % (37.0-47.0); Imm Gran Abs Auto 0.03 X10*3/uL (0.00-0.03); Imm Gran Pct Auto 0.4 % (0.0-0.4); Lymphocytes Absolute Auto 1.8 X10*3/uL (1.2-4.9); Lymphocytes Percent Auto 26.2 % (20-40); Mean Corpuscular HGB Conc 30.8 g/dl (31.0-35.0); Mean Corpuscular Hemoglobin 22.4 pg (27.0-33.0); Mean Corpuscular Volume 72.8 fL (80.0-98.0); Mean Platelet Volume 8.8 fL (9.4-12.3); Monocytes Absolute Auto 0.9 X10*3/uL (0.1-1.2); Monocytes Percent Auto 13.6 % (2-11); Neutrophils Absolute Auto 3.9 x10*3/uL (2.0-8.3); Neutrophils Percent Auto 57.7 % (45-73); Platelet Count 323 X10*3/uL (160-400); Red Cell Distribution Width 19.9 % (11.0-16.0); White Blood Count 6.7 X10*3/uL (4.8-10.8)
[2021-10-02 06:23] LABS: Hemoglobin 6.5 g/dl (12.0-16.0); MANUAL DIFF FLAG NO
[2021-10-02 06:46] LABS: MANUAL DIFF FLAG NO
[2021-10-02 06:48] LABS: Basophils Percent Auto 0.3 % (0-2); Eosinophils Absolute Auto 0.1 X10*3/uL (0.0-0.4); Eosinophils Percent Auto 1.3 % (0-4); Hematocrit 22.3 % (37.0-47.0); Imm Gran Abs Auto 0.03 X10*3/uL (0.00-0.03); Imm Gran Pct Auto 0.4 % (0.0-0.4); Lymphocytes Absolute Auto 2.2 X10*3/uL (1.2-4.9); Mean Corpuscular Hemoglobin 22.1 pg (27.0-33.0); Mean Corpuscular Volume 73.6 fL (80.0-98.0); Mean Platelet Volume 9.1 fL (9.4-12.3); Monocytes Percent Auto 13.1 % (2-11); Neutrophils Absolute Auto 4.1 x10*3/uL (2.0-8.3); Neutrophils Percent Auto 54.9 % (45-73); Platelet Count 336 X10*3/uL (160-400); Red Blood Count 3.03 X10*6/uL (4.20-5.50); Red Cell Distribution Width 19.9 % (11.0-16.0); White Blood Count 7.4 X10*3/uL (4.8-10.8)
[2021-10-02 07:13] LABS: Hemoglobin 6.7 g/dl (12.0-16.0)
[2021-10-02 08:59] LABS: Glucose, Whole Blood 77 mg/dL (60-115)
[2021-10-02] MEDS: Acetaminophen 325 MG TABLET 650 MG PO ×2 (09:05→21:05)
[2021-10-02] MEDS: Heparin Sodium,Porcine 5,000 UNIT/ML VIAL 5000 UNIT SUBCUT ×3 (09:07→21:04)
[2021-10-02] MEDS: 0.9 % Sodium Chloride Flush 3 ML SYRINGE IVFLUSH ×2 (09:10→21:04)
--- NOTE | 2021-10-02 09:38 | P.CONGS_ITS ---
History of Present Illness Consult details Consult date: 10/02/21 Narrative: 66-year-old female, with known history of ovarian cancer with carcinomatosis, admitted last night because of hypotension with signs of sepsis.She was diagnosed to have a urinary tract infection She had stated that she has had pain on the lower abdomen for over a week now. She describes burning with urination. She has bowel movements as well as flatus . Her CAT scan however shows what appears to be an enterovesical fistula with a Moses catheter tip entering an adjacent small bowel loop. This also shows extensive carcinomatosis. She actually had been admitted last April 2021 here in the hospital for nausea and vomiting as well and at that time, she also had a CAT scan showing this carcinomatosis, with advanced disease in the pelvis from her ovarian cancer. She was scheduled to undergo additional chemotherapy at that time as well. Review of Systems Constitutional: Constitutional: Denies fever(s), Reports lethargy and Reports malaise Cardiovascular: Cardiovascular: Denies chest pain Respiratory: Respiratory: Denies cough Gastrointestinal: Gastrointestinal: Reports abdominal pain Genitourinary: Genitourinary: Reports dysuria Musculoskeletal: Musculoskeletal: Reports muscle weakness Neurologic: Denies Abnormal speech present [facility] Past Medical History Medical History (Updated 10/02/21 @ 09:48 by Curry Lyn MD) Acute UTI Arthritis Bacteremia Diabetes Enterovesical fistula On total parenteral nutrition Osteoporosis Pelvic cancer Rectovaginal fistula Surgical History Surgical History History of colon resection Hx of cholecystectomy Social History Social History Household Members: Spouse Housing: House Do you presently have visiting nurse or other home services: Yes (comes every day) Alcohol intake: never Patient Tobacco Use Status: Never used Tobacco Use of substances other than those prescribed or required for medical reasons: No Advance Directives: Yes Advance Directives on File: Yes Advance Directives Date on File: 05/04/21 Patient : No service: No Current occupational status: retired Meds Allergies Allergy/AdvReac Type Severity Reaction Status Date / Time Iodinated Contrast Media Allergy Severe DIFF.BREATH Verified 06/11/21 13:16 [IV Dye, Iodine Containing] ING Penicillins AdvReac Mild PASSED OUT Verified 06/11/21 13:16 Environmental Allergy Mild ITCHY Uncoded 05/04/20 16:02 EYES/RUNNY NOSE DYE Allergy Unknown Unknown Uncoded 05/03/21 16:31 PENICILLIN G Allergy Unknown Unknown Uncoded 05/03/21 16:31 Active Medications: Current Medications Acetaminophen (Acetaminophen 325 Mg Tablet) 650 mg PO Q6H PRN PRN Reason: Pain, Mild (Pain Scale 1-3) Last Admin: 10/02/21 09:05 Dose: 650 mg Documented by: Dextrose (Dextrose 50 % 25 Gm/50 Ml Syringe) 25 gm IVPUSH Q15M PRN; Protocol PRN Reason: per Hypoglycemia Standing Ord. Famotidine (Famotidine 20 Mg Tablet) 20 mg PO BID PRN PRN Reason: heartburn Fentanyl (Fentanyl 25 Mcg Patch.Td72) 25 mcg TRANSDERMA Q3D [facility] Last Admin: 10/02/21 06:30 Dose: Not Given Documented by: Glucose (Glucose Gel 15 Gm Gel..Gram.) 15 gm PO Q15M PRN; Protocol PRN Reason: per Hypoglycemia Standing Ord. Heparin Sodium (Porcine) (Heparin Sodium,Porcine 5,000 Unit/Ml Vial) 5,000 unit SUBCUT Q8H [facility] Last Admin: 10/02/21 09:07 Dose: 5,000 unit Documented by: Dextrose/Sodium Chloride (D51/2ns) 1,000 mls @ 75 mls/hr IVCONT .[id number] [facility] Last Admin: 10/02/21 04:22 Dose: 75 mls/hr Documented by: Levofloxacin (Levaquin) 750 mg in 150 mls @ 100 mls/hr IV Q24H [facility] Insulin Human Lispro (Insulin Lispro 100 Unit/Ml 3 Ml Vial) 0 unit SUBCUT QIDACHS [facility]; Protocol Last Admin: 10/02/21 09:08 Dose: Not Given Documented by: Melatonin (Melatonin 3 Mg Tablet) 6 mg PO BEDTIME PRN PRN Reason: Insomnia Morphine Sulfate (Morphine Sulfate 4 Mg/Ml Cartridge) 3 mg IVPUSH Q3H PRN; Protocol PRN Reason: Pain, Mild (Pain Scale 1-3) Ondansetron HCl (Ondansetron Hcl 4 Mg/2 Ml Vial) 4 mg IVPUSH Q4H PRN PRN Reason: Nausea and Vomiting Senna/Docusate Sodium (Sennosides/Docusate Sodium Tablet) 2 tab PO DAILY [facility] Last Admin: 10/02/21 09:06 Dose: 2 tab Documented by: Sodium Chloride (0.9 % Sodium Chloride Flush 3 Ml Syringe) 3 ml IVFLUSH QSHIFT [facility] Last Admin: 10/02/21 09:10 Dose: 3 ml Documented by: Home Medications Medication Instructions Recorded Confirmed Last Taken Type melatonin 5 mg tablet 1 tab PO BEDTIME PRN 05/03/21 10/02/21 05/02/21 History acetaminophen 325 mg tablet 3 tab PO Q6H PRN 10/02/21 10/02/21 Unknown History famotidine 20 mg tablet 1 tab PO BID PRN 10/02/21 10/02/21 Unknown History fentanyl 25 mcg/hr transdermal 1 patch TOPICAL Q3D 10/02/21 10/02/21 09/28/21 History patch ondansetron 4 mg disintegrating 1 tab PO Q6H 10/02/21 10/02/21 Unknown History tablet sennosides 8.6 mg-docusate sodium 2 tab PO DAILY PRN 10/02/21 10/02/21 Unknown History 50 mg tablet (Senna Plus) Physical Exam Vital Signs: Vital Signs: Last Vital Signs Temp 98.3 F 10/02/21 07:10 Pulse 102 H 10/02/21 07:10 Resp 16 10/02/21 07:10 BP 95/50 L 10/02/21 07:10 Pulse Ox 91 L 10/02/21 07:10 BMI result Body Mass Index 17.1 Const: Other: Says she is in some discomfort, looks frail answers questions Resp: Effort & Inspection: normal respiratory effort Cardio: Rhythm: regular rhythm GI: Other: tender on the lower abdomen no rebound Inspection: No distended Palpation (GI): Soft to palpation and no guarding Neuro: Speech: No Abnormal speech present Results Labs Result diagrams: 10/02/21 06:42 10/02/21 04:31 Labs: Abnormal lab results 10/01/21 10/01/21 10/01/21 Range/Units 23:18 23:18 23:18 RBC 3.68 L (4.20-5.50) X10*6/uL Hgb 8.1 L (12.0-16.0) g/dl Hct 27.9 L (37.0-47.0) % MCV 75.8 L (80.0-98.0) fL MCH 22.0 L (27.0-33.0) pg MCHC 29.0 L (31.0-35.0) g/dl RDW 20.2 H (11.0-16.0) % Plt Count 418 H (160-400) X10*3/uL MPV (9.4-12.3) fL [place] % (Auto) 11.1 H (2-11) % Abs Immat Gran (auto) 0.04 H (0.00-0.03) X10*3/uL Chloride (96-108) mmol/L Anion Gap (12-20) Random Glucose 122 H (60-115) mg/dL Lactic Acid 3.0 H* (0.5-2.0) mmol/L Calcium 7.6 L (8.4-10.2) mg/dL Alkaline Phosphatase 189 H (39-117) U/L Albumin 2.2 L (3.5-5.0) g/dL Ur Specific [place] (1.005-1.025) Urine Protein (NEG-TRACE) MG/DL Urine Blood (NEG) Urine Nitrite (NEG) Ur Leukocyte Esterase (NEG) Urine RBC (0) /HPF Urine WBC (0-4) /HPF 10/02/21 10/02/21 10/02/21 Range/Units 02:00 04:31 06:00 RBC 2.90 L D (4.20-5.50) X10*6/uL Hgb 6.5 L* (12.0-16.0) g/dl Hct 21.1 L D (37.0-47.0) % MCV 72.8 L (80.0-98.0) fL MCH 22.4 L (27.0-33.0) pg MCHC 30.8 L (31.0-35.0) g/dl RDW 19.9 H (11.0-16.0) % Plt Count (160-400) X10*3/uL MPV 8.8 L (9.4-12.3) fL [place] % (Auto) 13.6 H (2-11) % Abs Immat Gran (auto) (0.00-0.03) X10*3/uL Chloride 110 H (96-108) mmol/L Anion Gap 9 L (12-20) Random Glucose (60-115) mg/dL Lactic Acid (0.5-2.0) mmol/L Calcium 6.9 L D (8.4-10.2) mg/dL Alkaline Phosphatase (39-117) U/L Albumin (3.5-5.0) g/dL Ur Specific [place] >= 1.030 H (1.005-1.025) Urine Protein 2+ H (NEG-TRACE) MG/DL Urine Blood 3+ H (NEG) Urine Nitrite POS H (NEG) Ur Leukocyte Esterase 2+ H (NEG) Urine RBC 5-9 H (0) /HPF Urine WBC 15-29 H (0-4) /HPF 10/02/21 Range/Units 06:42 RBC 3.03 L (4.20-5.50) X10*6/uL Hgb 6.7 L* (12.0-16.0) g/dl Hct 22.3 L (37.0-47.0) % MCV 73.6 L (80.0-98.0) fL MCH 22.1 L (27.0-33.0) pg MCHC 30.0 L (31.0-35.0) g/dl RDW 19.9 H (11.0-16.0) % Plt Count (160-400) X10*3/uL MPV 9.1 L (9.4-12.3) fL [place] % (Auto) 13.1 H (2-11) % Abs Immat Gran (auto) (0.00-0.03) X10*3/uL Chloride (96-108) mmol/L Anion Gap (12-20) Random Glucose (60-115) mg/dL Lactic Acid (0.5-2.0) mmol/L Calcium (8.4-10.2) mg/dL Alkaline Phosphatase (39-117) U/L Albumin (3.5-5.0) g/dL Ur Specific [place] (1.005-1.025) Urine Protein (NEG-TRACE) MG/DL Urine Blood (NEG) Urine Nitrite (NEG) Ur Leukocyte Esterase (NEG) Urine RBC (0) /HPF Urine WBC (0-4) /HPF Short CBC 02/14/22 02/15/22 02/15/22 Range/Units 23:18 06:00 06:42 WBC 9.6 6.7 7.4 (4.8-10.8) X10*3/uL Hgb 8.1 L 6.5 L* 6.7 L* (12.0-16.0) g/dl Hct 27.9 L 21.1 L D 22.3 L (37.0-47.0) % Plt Count 418 H 323 336 (160-400) X10*3/uL BMP 10/01/21 10/02/21 23:18 04:31 Sodium 138 137 Potassium 5.0 4.2 Chloride 105 110 H Carbon Dioxide 26 22 BUN 13 11 Creatinine 0.68 0.56 Calcium 7.6 L 6.9 L D Liver Function 10/01/21 Range/Units 23:18 Total Bilirubin < 0.2 (0.0-1.0) mg/dL AST 31 D (5-31) U/L ALT 10 (0-31) U/L Alkaline Phosphatase 189 H (39-117) U/L Albumin 2.2 L (3.5-5.0) g/dL Urine 10/02/21 Range/Units 02:00 Urine Color YELLOW Urine Appearance TURBID Urine pH 6.0 (5.0-8.0) Ur Specific [place] >= 1.030 H (1.005-1.025) Urine Protein 2+ H (NEG-TRACE) MG/DL Urine Glucose (UA) NEG (NEG) MG/DL All other labs normal. Imaging Abdomen CT scan report/results: report reviewed and image reviewed CT scan - pelvis: report reviewed and image reviewed Assessment and Plan (1) Enterovesical fistula: Status: Acute I have reviewed her CAT scan and this does show appears to be at enterovesical fistula, with the Moses catheter tip appearing to be with in a loop of small bowel adjacent to the pelvis. She has carcinomatosis and extensive disease pelvis as well from her ovarian cancer. She has multiple peritoneal implants, worsening pulmonary nodules, and metastatic disease in the liver. With the extent of her disease, she is a candidate for surgical intervention. It will be reasonable to discuss with her goals of care at this time. Her short-term prognosis is grim as well. In the meantime, I agree with IV antibiotic treatment to treat her urosepsis, and resuscitation with IV fluids. I have discussed the above with the hospitalist service. Procedures Date of Service Date of Service: 10/02/21
--- NOTE | 2021-10-02 09:42 | PM.EVENT ---
Event Note Date of Service: 10/02/21 Event Note: 66-year-old female with a past medical history of diabetes, history of ovarian ca, hx Enterovesical Fistula; Wears diapers; has Fecal contents in urine p/w Burning/redness of Labia and Burning urination/Abd pain for couple days; noted UTI/Labial cellulits; CT abdomen showed possible Ileus; Enterovesical Fistula. Admitted for following. Abd pain/ILeus, No SBO NPO for now IV fluids General surgery following, not a surgical candidate due to extensive cancer Supportive care.?? UTI/Labial Cellulitis, secondary to stool leaking out of the bladder from fistula start Zosyn .?? ID following follow cx . Moses catheter within the bladder extends into a loop of small bowel within the pelvis, confirming an enterovesicular fistula, not draining, will remove Hx Ovarian Ca Now with peritoneal carcinomatosis extensive spread now to liver, peritoneum and pulmonary nodules Anemia baseline Hgb around 8.0; AM CBC showed Hgb of 6.6 I unit PRBC ordered pt denies active signs of bleeding. check CBC post transfusion Diabetes Insulin sliding scale Discussed case with family, patient remaines full code despite poor prognosis and fistula. See advance care planning note DVT prophylaxis : [facility] Code status:? Full Code Attending Dr. Freitas
[2021-10-02] MEDS: oxyCODONE HCl Immed Release 5 MG TABLET PO (10:23)
--- NOTE | 2021-10-02 10:46 | MHC.CM.PN ---
CM MET WITH PT AND DAUGHTER WHO WAS AT BEDSIDE. PT LIVES AT HOME WITH HER AND HAS DAILY [employer]IL [employer] DAUGHTER REPORTS THE PT WAS GOING TO HAVE VNA HOWEVER THEY HAVE NOT YET STARTED PT DOES HAVE A CANE AT HOME BUT PRIMARILY REMAINS IN BED. THEY CONFIRMS PTS PCP IS CHARU PAUL AND SHE HAS A HCP ON FILE PT IS NOT VACCINATED AGAINST COVID-19 IMM DELIVERED, ORIGINAL AT BEDSIDE, COPY SENT TO [facility] CURRENTLY DCP IS TBD PT/FAMILY WILL CONSIDER HOSPICE VS HOME WITH RESUMPTION OF SERVICES PENDING TREATMENT RECOMMENDATIONS/PLAN FAMILY TO TRANSPORT VS CHAIR VAN
[2021-10-02 11:21] LABS: COVID-19 Test Negative (Negative); IDNOW Serial# 08D9AD1C
--- NOTE | 2021-10-02 11:36 | P.CNHO_ITS ---
Subjective - Subjective Chief complaint: Abdominal pain Patient: new to practice Consult date: 10/02/21 Requesting Physician: Deborah Johnson NP Primary Care Provider: Katalina Larson MD HPI - Consult Narrative Reason for consult: Advanced ovarian cancer, goals of care Narrative: Emani Turner is a 66 year old female with advanced metastatic ovarian cancer who is currently admitted for UTI/sepsis and colo vesical fistula. She is being treated for advanced ovarian cancer both at [facility] and [facility] [place] since 2013. Her last visit with her oncologist Dr. Calhoun was in July 2021. She has not received any chemotherapy since 2019. On current admission patient is found to have ileus/partial bowel obstruction, UTI and severe anemia. She is being treated with IV antibiotics. She has been seen by surgery for the colovesical fistula and has been deemed not to be a surgical candidate. Review of Systems - Constitutional Reports as per HPI, Reports poor appetite, Reports weight loss - Gastrointestinal Reports abdominal pain - Neurologic Denies abnormal speech [facility] Medical History: Medical History (Last Updated 10/02/21 @ 09:48 by Curry Lyn MD) Acute UTI Arthritis Bacteremia Diabetes Enterovesical fistula On total parenteral nutrition Osteoporosis Pelvic cancer Rectovaginal fistula Surgical History: Surgical History (Last Reviewed 10/02/21 @ 00:32 by Lior Niño MD) History of colon resection Hx of cholecystectomy Social History: Social History (Last Reviewed 10/02/21 @ 00:32 by Lior Niño MD) Living Situation History: Household Members: Spouse Housing: House Do you presently have visiting nurse or other home services: Yes Do you presently have visiting nurse or other home services comment: comes every day Tobacco History: Patient Tobacco Use Status: Never used Tobacco Substance Use History: Use of substances other than those prescribed or required for medical reasons : No Advance Directives: Advance Directives: Yes Advance Directives on File: Yes Advance Directives Date on File: 05/04/21 Nutrition Assessment: Patient : No Occupation Assessmet: service: No Current occupational status: retired Home Medications and Allergies Current Medications: Current Medications Acetaminophen (Acetaminophen 325 Mg Tablet) 650 mg PO Q6H PRN PRN Reason: Pain, Mild (Pain Scale 1-3) Last Admin: 10/02/21 09:05 Dose: 650 mg Documented by: Dextrose (Dextrose 50 % 25 Gm/50 Ml Syringe) 25 gm IVPUSH Q15M PRN; Protocol PRN Reason: per Hypoglycemia Standing Ord. Famotidine (Famotidine 20 Mg Tablet) 20 mg PO BID PRN PRN Reason: heartburn Fentanyl (Fentanyl 25 Mcg Patch.Td72) 25 mcg TRANSDERMA Q3D [facility] Last Admin: 10/02/21 06:30 Dose: Not Given Documented by: Glucose (Glucose Gel 15 Gm Gel..Gram.) 15 gm PO Q15M PRN; Protocol PRN Reason: per Hypoglycemia Standing Ord. Heparin Sodium (Porcine) (Heparin Sodium,Porcine 5,000 Unit/Ml Vial) 5,000 unit SUBCUT Q8H [facility] Last Admin: 10/02/21 09:07 Dose: 5,000 unit Documented by: Dextrose/Sodium Chloride (D51/2ns) 1,000 mls @ 75 mls/hr IVCONT .[id number] [facility] Last Admin: 10/02/21 04:22 Dose: 75 mls/hr Documented by: Levofloxacin (Levaquin) 750 mg in 150 mls @ 100 mls/hr IV Q24H [facility] Insulin Human Lispro (Insulin Lispro 100 Unit/Ml 3 Ml Vial) 0 unit SUBCUT QIDACHS [facility]; Protocol Last Admin: 10/02/21 09:08 Dose: Not Given Documented by: Melatonin (Melatonin 3 Mg Tablet) 6 mg PO BEDTIME PRN PRN Reason: Insomnia Morphine Sulfate (Morphine Sulfate 4 Mg/Ml Cartridge) 3 mg IVPUSH Q3H PRN; Protocol PRN Reason: Pain, Mild (Pain Scale 1-3) Ondansetron HCl (Ondansetron Hcl 4 Mg/2 Ml Vial) 4 mg IVPUSH Q4H PRN PRN Reason: Nausea and Vomiting Last Admin: 10/02/21 10:23 Dose: 4 mg Documented by: Oxycodone HCl (Oxycodone Hcl Immed Release 5 Mg Tablet) 5 mg PO Q4H PRN PRN Reason: Pain, Mild (Pain Scale 1-3) Last Admin: 10/02/21 10:23 Dose: 5 mg Documented by: Senna/Docusate Sodium (Sennosides/Docusate Sodium Tablet) 2 tab PO DAILY [facility] Last Admin: 10/02/21 10:47 Dose: Not Given Documented by: Sodium Chloride (0.9 % Sodium Chloride Flush 3 Ml Syringe) 3 ml IVFLUSH QSHIFT [facility] Last Admin: 10/02/21 09:10 Dose: 3 ml Documented by: Home Medications Medication Instructions Recorded Confirmed Type melatonin 5 mg tablet 1 tab PO BEDTIME PRN 05/03/21 10/02/21 History acetaminophen 325 mg tablet 3 tab PO Q6H PRN 10/02/21 10/02/21 History famotidine 20 mg tablet 1 tab PO BID PRN 10/02/21 10/02/21 History fentanyl 25 mcg/hr transdermal 1 patch TOPICAL Q3D 10/02/21 10/02/21 History patch ondansetron 4 mg disintegrating 1 tab PO Q6H 10/02/21 10/02/21 History tablet sennosides 8.6 mg-docusate sodium 2 tab PO DAILY PRN 10/02/21 10/02/21 History 50 mg tablet (Senna Plus) Allergies Allergy/AdvReac Type Severity Reaction Status Date / Time Iodinated Contrast Media Allergy Severe DIFF.BREATH Verified 06/11/21 13:16 [IV Dye, Iodine Containing] ING Penicillins AdvReac Mild PASSED OUT Verified 06/11/21 13:16 Environmental Allergy Mild ITCHY Uncoded 05/04/20 16:02 EYES/RUNNY NOSE DYE Allergy Unknown Unknown Uncoded 05/03/21 16:31 PENICILLIN G Allergy Unknown Unknown Uncoded 05/03/21 16:31 Physical Exam Vital signs: Vital Signs Temp 98.3 F 10/02/21 07:10 Pulse 102 H 10/02/21 07:10 Resp 16 10/02/21 07:10 BP 95/50 L 10/02/21 07:10 Pulse Ox 91 L 10/02/21 07:10 Intake & Output 10/01/21 10/02/21 10/02/21 18:59 06:59 18:59 Intake Total 1370 / 1370 Balance 1370 / 1370 Intake: Intake, IV Amount 1370 / 1370 0.9 % Sodium Chloride 1,000 ml 1000 / 1000 @ 999 mls/hr IV .Q1H1M ONE Rx#: [id number] levoFLOXacin/D5W 500 mg In 100 100 / 100 ml @ 100 mls/hr IV ONCE ONE Rx# :[id number] vancomycin HCL 1,000 mg In 0.9 270 / 270 % Sodium Chloride 250 ml @ 270 mls/hr IV ONCE ONE Rx#: [id number] Other: Weight 39.826 kg Weight 39.826 kg - Constitutional Present: mild distress, chronically ill appearing - Routine HEENT Exam Head: Present: atraumatic Eye: Present: conjunctivae pale - Routine Neck Exam Present: supple - Routine Respiratory Exam Present: CTAB - Routine Cardiovascular Exam Cardiovascular: Present: S1, S2 - Routine Abdominal Exam Present: tenderness Hem/Onc Consult Result - Labs CBC & Chem 7: 10/02/21 06:42 10/02/21 04:31 Labs: Short CBC 10/01/21 10/02/21 10/02/21 Range/Units 23:18 06:00 06:42 WBC 9.6 6.7 7.4 (4.8-10.8) X10*3/uL Hgb 8.1 L 6.5 L* 6.7 L* (12.0-16.0) g/dl Hct 27.9 L 21.1 L D 22.3 L (37.0-47.0) % Plt Count 418 H 323 336 (160-400) X10*3/uL BMP 10/01/21 10/02/21 23:18 04:31 Sodium 138 137 Potassium 5.0 4.2 Chloride 105 110 H Carbon Dioxide 26 22 BUN 13 11 Creatinine 0.68 0.56 Calcium 7.6 L 6.9 L D Liver Function 10/01/21 Range/Units 23:18 Total Bilirubin < 0.2 (0.0-1.0) mg/dL AST 31 D (5-31) U/L ALT 10 (0-31) U/L Alkaline Phosphatase 189 H (39-117) U/L Albumin 2.2 L (3.5-5.0) g/dL Urine 10/02/21 Range/Units 02:00 Urine Color YELLOW Urine Appearance TURBID Urine pH 6.0 (5.0-8.0) Ur Specific [place] >= 1.030 H (1.005-1.025) Urine Protein 2+ H (NEG-TRACE) MG/DL Urine Glucose (UA) NEG (NEG) MG/DL Assessment and Plan Patient Active problem list reviewed?: Yes (1) Disseminated ovarian cancer Status: Chronic Assessment and plan: 1. This is a 66-year-old woman with advanced ovarian cancer currently admitted for UTI and small bowel obstruction. CT abdomen/pelvis performed 10/02/2021 show s Moses catheter within bladder extending into loop of small bowel confirming intravesicular fistula. Dilated loops of small bowel, extensive mesenteric and abdominal pelvic lymphadenopathy, new peritoneal implants, numerous new hepatic metastasis as well as increasing size and number of numerous pulmonary nodules. I have reviewed information from her primary oncologist, Dr. Calhoun at [facility] as well as Dr. Bob at [facility] [place]. Her initial treatment for ovarian cancer with surgery and chemotherapy was in 2013. She developed a recurrence in 2016 and has been receiving intermittent chemotherapy until 2019. In 2019 she was noted to have progression and developed enterovesical fistula. She was admitted in December 2020 when she underwent repair of colovesical fistula, laparotomy and small-bowel resection and bladder repair. 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 In July 2021 her oncologist discussed DNR/DNI status and hospice care with the patient as she had significant progression of her cancer and her performance status had declined significantly. She was felt not to be a candidate for further chemotherapy. However, patient was not willing for hospice care. She was supposed to meet with Dr. Calhoun in August to discuss further management but it appears to not have happened. Reviewing all the clinical information and her current clinical status, I recommend discussion about hospice care. Patient is no longer a candidate for palliative chemotherapy. For her iron deficiency anemia, recommend blood transfusion for now. I thank you for this consultation. - Time Spent With Patient Time Spent with Patient (in minutes): 20
--- NOTE | 2021-10-02 11:50 | PHA.MEDREC ---
Pharmacy Consult ? Medication Reconciliation Pharmacy has completed the medication reconciliation.
--- NOTE | 2021-10-02 12:33 | MHC.CM.PN ---
Received telephone call from Ashley at [facility]. Patient's PCP is Dr Hinkle. Patient receives HISTORY TUTOR services through [facility]. [facility] has tried to make hospice referrals. However, anytime there has meet a family meeting planned, family has cancelled or not followed through with appointment. Continue to monitor for d/c needs.
[2021-10-02 12:47] LABS: Glucose, Whole Blood 70 mg/dL (60-115)
[2021-10-02] MEDS: Morphine Sulfate 4 MG/ML CARTRIDGE 3 MG IVPUSH (13:47)
--- NOTE | 2021-10-02 14:17 | PM.EVENT ---
Event Note Date of Service: 10/05/21 Event Note: Multiple discussions with daughter and son today The are both very resistant to hospice for I[place] I had explained to them the multiple times that the patient has extensive disease loading in the pelvis aside from metastatic disease Surgical intervention would be futile at this time As per son, the patient had been already been seen in multiple other hospitals and hospice had been recommended to them many times but they have resisted this, stating that the patient has continued to stay alive despite prognosis I did talk to the patient herself and she had stated that she did not want any intubation or any artificial life support She is more resected towards the idea of hospice care at this point
--- NOTE | 2021-10-02 14:28 | MHC.CM.PN ---
Received notification from CHARLEE Cabrera that patient's prognosis is quite poor due to extensive cancer mets. Deborah has long conversation with patient's son, Abdoul. Abdoul is not interested in hospice for patient. He is interested in patient returning home with VNA and being able to receive IV fluid when she needs it. Patient is active with [facility]. T/W spoke with Ashley at [facility]. Patient is active with their palliative team. At this time, their palliative team is not able to offer in home resources. Ashley is agreeable to referral to [facility] Palliative team. Referral made via [employer]. Per Carolina at [facility], IVF will need to be ordered through an infusion company. Deborah DESHPANDE aware. Continue to monitor for d/c needs.
--- NOTE | 2021-10-02 15:12 | W.MHC.ACPN ---
Advanced Care Planning Note Advanced Care Planning Note Time spent (in minutes): 60 Narrative: Discussed with patient, her spouse, her son Abdoul regarding patients condition. The family does not want hospice and dose not want their mother to be a DNR. The patient was in agreement and stated that she would do what the family wants. Dr. Lyn was also present for a part of the discussion with the patients son, Abdoul. It was explained to Abdoul that surgery was not an option for the patient due to her extensive cancer and she is not a surgical candidate at this time. He was also made aware that the patient was also seen by the oncologist and at this point there is no further chemotherapeutic options for her. The son believes that she could recover from this and he will be pursuing another opinion. The patient remains a full code and will be treated with empiric zosyn and IV fluids for now. She will be discharged with VNA when medically ready. Problems Discussed (1) Disseminated ovarian cancer:
[2021-10-02] MEDS: Piperacillin Sodium/Tazobactam 3.375 GM in 0.9 % Sodium Chloride 50 ML IV ×2 (15:50→21:03)
--- NOTE | 2021-10-02 15:55 | W.PM.IDCN ---
History of Present Illness Data of Consult Service Date: 10/02/21 Requesting physician: Deborah Johnson Primary Care Provider: Katalina Larson MD HPI Reason for consult: labial cellulitis,UTI She has h/o malignancy and enterovesicular fistula. She has seen Oncology and not candidate for chemotherapy or Surgery. She has sool in vagina and concern over fistula. Review of Systems Review of Systems: Yes Unobtainable due to mental condition PMFSH Past Medical History Medical History Acute UTI Arthritis Bacteremia Diabetes Enterovesical fistula On total parenteral nutrition Osteoporosis Pelvic cancer Rectovaginal fistula Family History Family history: reviewed and not pertinent Surgical History Surgical History History of colon resection Hx of cholecystectomy Social History Social History Household Members: Spouse Housing: House Do you presently have visiting nurse or other home services: Yes Alcohol intake: never Patient Tobacco Use Status: Never used Tobacco Advance Directives Date on File: 05/04/21 service: No Current occupational status: retired Meds Allergies Allergy/AdvReac Type Severity Reaction Status Date / Time Iodinated Contrast Media Allergy Severe DIFF.BREATH Verified 06/11/21 13:16 [IV Dye, Iodine Containing] ING Penicillins AdvReac Mild PASSED OUT Verified 06/11/21 13:16 Environmental Allergy Mild ITCHY Uncoded 05/04/20 16:02 EYES/RUNNY NOSE DYE Allergy Unknown Unknown Uncoded 05/03/21 16:31 PENICILLIN G Allergy Unknown Unknown Uncoded 05/03/21 16:31 Active Medications: Current Medications Acetaminophen (Acetaminophen 325 Mg Tablet) 650 mg PO Q6H PRN PRN Reason: Pain, Mild (Pain Scale 1-3) Last Admin: 10/02/21 09:05 Dose: 650 mg Documented by: Dextrose (Dextrose 50 % 25 Gm/50 Ml Syringe) 25 gm IVPUSH Q15M PRN; Protocol PRN Reason: per Hypoglycemia Standing Ord. Famotidine (Famotidine 20 Mg Tablet) 20 mg PO BID PRN PRN Reason: heartburn Fentanyl (Fentanyl 25 Mcg Patch.Td72) 25 mcg TRANSDERMA Q3D [facility] Last Admin: 10/02/21 06:30 Dose: Not Given Documented by: Glucose (Glucose Gel 15 Gm Gel..Gram.) 15 gm PO Q15M PRN; Protocol PRN Reason: per Hypoglycemia Standing Ord. Heparin Sodium (Porcine) (Heparin Sodium,Porcine 5,000 Unit/Ml Vial) 5,000 unit SUBCUT Q8H [facility] Last Admin: 10/02/21 09:07 Dose: 5,000 unit Documented by: Dextrose/Sodium Chloride (D51/2ns) 1,000 mls @ 100 mls/hr IVCONT .Q10H [facility] Last Admin: 10/02/21 04:22 Dose: 75 mls/hr Documented by: Piperacillin Sod/Tazobactam (Sod 3.375 gm/ Sodium Chloride) 50 mls @ 100 mls/hr IV Q6H [facility] Insulin Human Lispro (Insulin Lispro 100 Unit/Ml 3 Ml Vial) 0 unit SUBCUT QIDACHS [facility]; Protocol Last Admin: 10/02/21 12:46 Dose: Not Given Documented by: Melatonin (Melatonin 3 Mg Tablet) 6 mg PO BEDTIME PRN PRN Reason: Insomnia Morphine Sulfate (Morphine Sulfate 4 Mg/Ml Cartridge) 3 mg IVPUSH Q3H PRN; Protocol PRN Reason: Pain, Mild (Pain Scale 1-3) Last Admin: 10/02/21 13:47 Dose: 3 mg Documented by: Ondansetron HCl (Ondansetron Hcl 4 Mg/2 Ml Vial) 4 mg IVPUSH Q4H PRN PRN Reason: Nausea and Vomiting Last Admin: 10/02/21 10:23 Dose: 4 mg Documented by: Oxycodone HCl (Oxycodone Hcl Immed Release 5 Mg Tablet) 5 mg PO Q4H PRN PRN Reason: Pain, Mild (Pain Scale 1-3) Last Admin: 10/02/21 10:23 Dose: 5 mg Documented by: Senna/Docusate Sodium (Sennosides/Docusate Sodium Tablet) 2 tab PO DAILY [facility] Last Admin: 10/02/21 10:47 Dose: Not Given Documented by: Sodium Chloride (0.9 % Sodium Chloride Flush 3 Ml Syringe) 3 ml IVFLUSH QSHIFT [facility] Last Admin: 10/02/21 09:10 Dose: 3 ml Documented by: Home Medications Medication Instructions Recorded Confirmed Last Taken Type melatonin 5 mg tablet 1 tab PO BEDTIME PRN 05/03/21 10/02/21 05/02/21 History acetaminophen 325 mg tablet 3 tab PO Q6H PRN 10/02/21 10/02/21 Unknown History famotidine 20 mg tablet 1 tab PO BID PRN 10/02/21 10/02/21 Unknown History fentanyl 25 mcg/hr transdermal 1 patch TOPICAL Q3D 10/02/21 10/02/21 09/28/21 History patch ondansetron 4 mg disintegrating 1 tab PO Q6H 10/02/21 10/02/21 Unknown History tablet sennosides 8.6 mg-docusate sodium 2 tab PO DAILY PRN 10/02/21 10/02/21 Unknown History 50 mg tablet (Senna Plus) Physical Exam Vital Signs: Vital Signs: Last Vital Signs Temp 98.3 F 10/02/21 15:43 Pulse 86 10/02/21 15:43 Resp 17 10/02/21 15:43 BP 104/44 L 10/02/21 15:43 Pulse Ox 100 10/02/21 15:43 BMI result Body Mass Index 17.1 Const: General: cooperative HENMT: Head: Yes normal to inspection Mouth: Normal oral and palatal mucosa present Resp: Effort & Inspection: normal respiratory effort Cardio: Rate: regular rate Rhythm: regular rhythm GI: Other: appears to be in some discomfort Results Labs CBC & Chem 7: 10/08/21 06:14 10/08/21 06:14 Labs: Short CBC 10/01/21 10/02/21 10/02/21 Range/Units 23:18 06:00 06:42 WBC 9.6 6.7 7.4 (4.8-10.8) X10*3/uL Hgb 8.1 L 6.5 L* 6.7 L* (12.0-16.0) g/dl Hct 27.9 L 21.1 L D 22.3 L (37.0-47.0) % Plt Count 418 H 323 336 (160-400) X10*3/uL BMP 10/01/21 10/02/21 23:18 04:31 Sodium 138 137 Potassium 5.0 4.2 Chloride 105 110 H Carbon Dioxide 26 22 BUN 13 11 Creatinine 0.68 0.56 Calcium 7.6 L 6.9 L D Liver Function 10/01/21 Range/Units 23:18 Total Bilirubin < 0.2 (0.0-1.0) mg/dL AST 31 D (5-31) U/L ALT 10 (0-31) U/L Alkaline Phosphatase 189 H (39-117) U/L Albumin 2.2 L (3.5-5.0) g/dL Urine 10/02/21 Range/Units 02:00 Urine Color YELLOW Urine Appearance TURBID Urine pH 6.0 (5.0-8.0) Ur Specific [place] >= 1.030 H (1.005-1.025) Urine Protein 2+ H (NEG-TRACE) MG/DL Urine Glucose (UA) NEG (NEG) MG/DL Assessment and Plan (1) Enterovesical fistula: Status: Acute She has chronic soiling of periarea and urinary area There is no MRSA (2) UTI (urinary tract infection): Status: Acute Plan Zosyn for now continue and possibly Augmentin outpatient 10d
--- NOTE | 2021-10-02 16:19 | PC.NURSE ---
removed diaz catheter as is was becoming blocked due to pts fistula. Elan polo
[2021-10-02] MEDS: Dextrose 5 % and 0.45 % NaCl 1,000 ML 100 ML IVCONT (16:22)
[2021-10-02 18:15] LABS: Glucose, Whole Blood 66 mg/dL (60-115)
[2021-10-02 18:44] LABS: Glucose, Whole Blood 81 mg/dL (60-115)
[2021-10-02 20:04] LABS: Glucose, Whole Blood 90 mg/dL (60-115)
[2021-10-02] MEDS: Melatonin 3 MG TABLET 6 MG PO (21:05)
[2021-10-03] MEDS: Dextrose 5 % and 0.45 % NaCl 1,000 ML 100 ML IVCONT ×3 (01:28→22:49)
[2021-10-03] MEDS: Piperacillin Sodium/Tazobactam 3.375 GM in 0.9 % Sodium Chloride 50 ML IV ×4 (03:04→22:12)
[2021-10-03 03:42] VITALS: BP 103/51; PULSE 78; RESP 16; TEMP 36.1; O2SAT 95
[2021-10-03 05:56] LABS: Hematocrit 29.2 % (37.0-47.0); Hemoglobin 9.3 g/dl (12.0-16.0); Mean Corpuscular HGB Conc 31.8 g/dl (31.0-35.0); Mean Corpuscular Hemoglobin 24.3 pg (27.0-33.0); Mean Corpuscular Volume 76.4 fL (80.0-98.0); Mean Platelet Volume 9.6 fL (9.4-12.3); Platelet Count 345 X10*3/uL (160-400); Red Blood Count 3.82 X10*6/uL (4.20-5.50); Red Cell Distribution Width 20.6 % (11.0-16.0); White Blood Count 6.8 X10*3/uL (4.8-10.8)
[2021-10-03 06:16] LABS: Anion Gap 8 (12-20); Blood Urea Nitrogen 7 mg/dL (9-16); Calcium 7.3 mg/dL (8.4-10.2); Carbon Dioxide 27 mmol/L (22-29); Chloride 106 mmol/L (96-108); Creatinine Clr Calc Pharmacy 59.9; Estimated Glomerular Filt Rate > 60; Glucose Random 82 mg/dL (60-115); Sodium 137 mmol/L (135-145)
[2021-10-03 06:59] VITALS: BP 95/52; PULSE 84; RESP 18; TEMP 36.1; O2SAT 100
[2021-10-03 07:13] LABS: Glucose, Whole Blood 70 mg/dL (60-115)
[2021-10-03] MEDS: Heparin Sodium,Porcine 5,000 UNIT/ML VIAL 5000 UNIT SUBCUT ×3 (09:36→23:44)
[2021-10-03] MEDS: Sennosides/Docusate Sodium TABLET 2 TAB PO (09:37)
[2021-10-03] MEDS: oxyCODONE HCl Immed Release 5 MG TABLET PO (09:38)
[2021-10-03] MEDS: 0.9 % Sodium Chloride Flush 3 ML SYRINGE IVFLUSH ×3 (09:41→23:43)
--- NOTE | 2021-10-03 09:58 | P.PNIM_ITS ---
Subjective Subjective Date of Service: 10/03/21 Review of Systems Follow up abdominal pain appetite getting better feels better overall Physical Exam Vital Signs: Vital Signs: Last Vital Signs Temp 97 F 10/03/21 06:59 Pulse 84 10/03/21 06:59 Resp 18 10/03/21 06:59 BP 95/52 L 10/03/21 06:59 Pulse Ox 100 10/03/21 06:59 BMI result Body Mass Index 17.1 Appearing in no acute distress lung sounds are clear to auscultation heart regular rate rhythm, clear S1, S2 positive bowel sounds, abdomen is soft, nontender neuro patient is alert x3, no focal deficits Stool coming from urether Objective Data Active Medications Acetaminophen (Acetaminophen 325 Mg Tablet) 650 mg PO Q6H PRN PRN Reason: Pain, Mild (Pain Scale 1-3) Last Admin: 10/02/21 21:05 Dose: 650 mg Documented by: TRACEY Dextrose (Dextrose 50 % 25 Gm/50 Ml Syringe) 25 gm IVPUSH Q15M PRN; Protocol PRN Reason: per Hypoglycemia Standing Ord. Famotidine (Famotidine 20 Mg Tablet) 20 mg PO BID PRN PRN Reason: heartburn Fentanyl (Fentanyl 25 Mcg Patch.Td72) 25 mcg TRANSDERMA Q3D [facility] Last Admin: 10/02/21 06:30 Dose: Not Given Documented by: SAKSHI Non-Admin Reason: Med Not Available Glucose (Glucose Gel 15 Gm Gel..Gram.) 15 gm PO Q15M PRN; Protocol PRN Reason: per Hypoglycemia Standing Ord. Heparin Sodium (Porcine) (Heparin Sodium,Porcine 5,000 Unit/Ml Vial) 5,000 unit SUBCUT Q8H [facility] Last Admin: 10/03/21 09:36 Dose: 5,000 unit Documented by: KAMI Dextrose/Sodium Chloride (D51/2ns) 1,000 mls @ 100 mls/hr IVCONT .Q10H [facility] Last Admin: 10/03/21 01:28 Dose: 100 mls/hr Documented by: TRACEY Piperacillin Sod/Tazobactam (Sod 3.375 gm/ Sodium Chloride) 50 mls @ 100 mls/hr IV Q6H [facility] Last Admin: 10/03/21 09:37 Dose: 100 mls/hr Documented by: KAMI Insulin Human Lispro (Insulin Lispro 100 Unit/Ml 3 Ml Vial) 0 unit SUBCUT QIDACHS [facility]; Protocol Last Admin: 10/03/21 07:36 Dose: Not Given Documented by: KAMI Non-Admin Reason: No Insulin Coverage Melatonin (Melatonin 3 Mg Tablet) 6 mg PO BEDTIME PRN PRN Reason: Insomnia Last Admin: 10/02/21 21:05 Dose: 6 mg Documented by: TRACEY Morphine Sulfate (Morphine Sulfate 4 Mg/Ml Cartridge) 3 mg IVPUSH Q3H PRN; Protocol PRN Reason: Pain, Mild (Pain Scale 1-3) Last Admin: 10/02/21 13:47 Dose: 3 mg Documented by: CRISTIAN Ondansetron HCl (Ondansetron Hcl 4 Mg/2 Ml Vial) 4 mg IVPUSH Q4H PRN PRN Reason: Nausea and Vomiting Last Admin: 10/02/21 10:23 Dose: 4 mg Documented by: CRISTIAN Oxycodone HCl (Oxycodone Hcl Immed Release 5 Mg Tablet) 5 mg PO Q4H PRN PRN Reason: Pain, Mild (Pain Scale 1-3) Last Admin: 10/03/21 09:38 Dose: 5 mg Documented by: KAMI Senna/Docusate Sodium (Sennosides/Docusate Sodium Tablet) 2 tab PO DAILY [facility] Last Admin: 10/03/21 09:37 Dose: 2 tab Documented by: KAMI Sodium Chloride (0.9 % Sodium Chloride Flush 3 Ml Syringe) [facility] Last Admin: 10/03/21 09:41 Dose: 3 ml Documented by: KAMI Labs CBC & Chem 7: 10/03/21 05:29 10/03/21 05:29 Labs: Laboratory Results - last 24 hr 10/02/21 10/02/21 10/02/21 10:03 10:36 12:43 MCV MCH MCHC RDW Plt Count MPV Absolute Nucleated RBC Nucleated RBC % (auto) Anion Gap Estim Creat Clear Calc Estimated GFR POC Glucose 70 Random Glucose Calcium COVID-19 ([facility]) Negative COVID-19 Clin Com See Note Blood Type O Positive Antibody Screen NEGATIVE Crossmatch See Detail 10/02/21 10/02/21 10/02/21 18:10 18:41 19:49 MCV MCH MCHC RDW Plt Count MPV Absolute Nucleated RBC Nucleated RBC % (auto) Anion Gap Estim Creat Clear Calc Estimated GFR POC Glucose 66 81 90 Random Glucose Calcium COVID-19 ([facility]) COVID-19 Clin Com Blood Type Antibody Screen Crossmatch 10/03/21 10/03/21 10/03/21 05:29 05:29 06:59 MCV 76.4 L MCH 24.3 L MCHC 31.8 RDW 20.6 H Plt Count 345 MPV 9.6 Absolute Nucleated RBC 0.000 Nucleated RBC % (auto) 0.0 Anion Gap 8 L Estim Creat Clear Calc 59.9 Estimated GFR > 60 POC Glucose 70 Random Glucose 82 Calcium 7.3 L COVID-19 ([facility]) COVID-19 Clin Com Blood Type Antibody Screen Crossmatch Microbiology Microbiology Results: Microbiology 10/02/21 00:15 Blood Culture - Preliminary Blood - Venous No growth after 24 hours. 10/02/21 00:20 Blood Culture - Preliminary Blood - Venous No growth after 24 hours. Assessment and Plan (1) Enterovesical fistula: Status: Acute Plan 66-year-old female with a past medical history of diabetes, history of ovarian ca, hx Enterovesical Fistula; Wears diapers; has Fecal contents in urine p/w Burning/redness of Labia and Burning urination/Abd pain for couple days; noted UTI/Labial cellulits; CT abdomen showed possible Ileus; Enterovesical Fistula. Admitted for following. Abd pain/ILeus, No SBO advance diet IV fluids General surgery following, not a surgical candidate due to extensive cancer Supportive care.?? UTI/Labial Cellulitis, secondary to stool leaking out of the bladder from fistula? start Zosyn .?? ID following follow cx Moses catheter within the bladder extends into a loop of small bowel within the pelvis, confirming an enterovesicular fistula, not draining, will remove, patient feeling better after removal Hx Ovarian Ca Now with peritoneal carcinomatosis extensive spread now to liver, peritoneum and pulmonary nodules?noted Anemia baseline Hgb around 8.0; AM CBC showed Hgb of 6.6 I unit PRBC tx pt denies active signs of bleeding. Diabetes Insulin sliding scale Discussed case with family, patient remains full code despite poor prognosis and fistula. See advance care planning note DVT prophylaxis : [facility] Code status:? Full Code Attending Dr. Freitas Quality Stroke Does the patient have a stroke diagnosis?: No VTE Prior VTE?: No VTE Risk Level:: Medical - moderate - high VTE Device Contraindication: Treatment Not Indicated VTE Drug Contraindication: N/A - Med Ordered
[2021-10-03 11:24] VITALS: BP 95/50; PULSE 96; RESP 18; TEMP 36.4; O2SAT 96
[2021-10-03 11:29] LABS: Glucose, Whole Blood 102 mg/dL (60-115)
--- NOTE | 2021-10-03 11:38 | P.CDIC_ITS ---
CDI Concurrent Query Documentation Clarification: PHYSICIAN'S DOCUMENTATION REQUEST Date of Query: 10/03/21 1138 Patient Name: Emani Turner Admit Date: 10/02/21 Dear Doctor, A review of the medical record indicates additional documentation may be needed. Please review below and update the documentation accordingly. 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 Based on the above, could you clarify in the Progress Notes the appropriate diagnosis, if significant, that supports the above abnormalities and additional evaluation, monitoring, and/or treatment rendered: * Malnutrition, mild, moderate or severe * Failure to thrive * Underweight due to cancer * Cachectic * Other (please specify) * Unable to determine Use of terms such as suspected, likely, concern for, or probable (associated with a specific diagnosis that is being evaluated, monitored, or treated as if it exists) are acceptable and can be coded in the inpatient setting, when documented at the time of discharge. Thank you, Carmen Goldberg [facility], CDIS Extension: [phone] Please use your independent medical judgment in providing your response. THIS QUERY IS PART OF THE PERMANENT MEDICAL RECORD
[2021-10-03] MEDS: ondansetron HCL 4 MG/2 ML VIAL IVPUSH (12:00)
--- NOTE | 2021-10-03 12:56 | P.PNGS_ITS ---
Subjective Subjective Date of Service: 10/03/21 Interval history: Feels better Does admit to pelvic pain Stool from urethra Physical Exam 2 Vital Signs: Vital Signs: Last Vital Signs Temp 97.5 F 10/03/21 11:24 Pulse 96 10/03/21 11:24 Resp 18 10/03/21 11:24 BP 95/50 L 10/03/21 11:24 Pulse Ox 96 10/03/21 11:24 BMI result Body Mass Index 17.1 Const: General: comfortable and no acute distress Resp: Effort & Inspection: normal respiratory effort GI: Palpation (GI): Soft to palpation, not firm and Tenderness to palpation present (GI) (On lower abdomen, pelvic area) Objective Data Active Medications Acetaminophen (Acetaminophen 325 Mg Tablet) 650 mg PO Q6H PRN PRN Reason: Pain, Mild (Pain Scale 1-3) Last Admin: 10/02/21 21:05 Dose: 650 mg Documented by: TRACEY Dextrose (Dextrose 50 % 25 Gm/50 Ml Syringe) 25 gm IVPUSH Q15M PRN; Protocol PRN Reason: per Hypoglycemia Standing Ord. Famotidine (Famotidine 20 Mg Tablet) 20 mg PO BID PRN PRN Reason: heartburn Fentanyl (Fentanyl 25 Mcg Patch.Td72) 25 mcg TRANSDERMA Q3D [facility] Last Admin: 10/02/21 06:30 Dose: Not Given Documented by: SAKSHI Non-Admin Reason: Med Not Available Glucose (Glucose Gel 15 Gm Gel..Gram.) 15 gm PO Q15M PRN; Protocol PRN Reason: per Hypoglycemia Standing Ord. Heparin Sodium (Porcine) (Heparin Sodium,Porcine 5,000 Unit/Ml Vial) 5,000 unit SUBCUT Q8H [facility] Last Admin: 10/03/21 09:36 Dose: 5,000 unit Documented by: KAMI Dextrose/Sodium Chloride (D51/2ns) 1,000 mls @ 100 mls/hr IVCONT .Q10H [facility] Last Admin: 10/03/21 10:37 Dose: 100 mls/hr Documented by: KAMI Piperacillin Sod/Tazobactam (Sod 3.375 gm/ Sodium Chloride) 50 mls @ 100 mls/hr IV Q6H [facility] Last Infusion: 10/03/21 10:39 Dose: 0 mls/hr Documented by: KAMI Insulin Human Lispro (Insulin Lispro 100 Unit/Ml 3 Ml Vial) 0 unit SUBCUT QIDACHS [facility]; Protocol Last Admin: 10/03/21 12:19 Dose: Not Given Documented by: KAMI Non-Admin Reason: No Insulin Coverage Melatonin (Melatonin 3 Mg Tablet) 6 mg PO BEDTIME PRN PRN Reason: Insomnia Last Admin: 10/02/21 21:05 Dose: 6 mg Documented by: TRACEY Morphine Sulfate (Morphine Sulfate 4 Mg/Ml Cartridge) 3 mg IVPUSH Q3H PRN; Protocol PRN Reason: Pain, Mild (Pain Scale 1-3) Last Admin: 10/02/21 13:47 Dose: 3 mg Documented by: CRISTIAN Ondansetron HCl (Ondansetron Hcl 4 Mg/2 Ml Vial) 4 mg IVPUSH Q4H PRN PRN Reason: Nausea and Vomiting Last Admin: 10/03/21 12:00 Dose: 4 mg Documented by: KAMI Oxycodone HCl (Oxycodone Hcl Immed Release 5 Mg Tablet) 5 mg PO Q4H PRN PRN Reason: Pain, Mild (Pain Scale 1-3) Last Admin: 10/03/21 09:38 Dose: 5 mg Documented by: KAMI Senna/Docusate Sodium (Sennosides/Docusate Sodium Tablet) 2 tab PO DAILY [facility] Last Admin: 10/03/21 09:37 Dose: 2 tab Documented by: KAMI Sodium Chloride (0.9 % Sodium Chloride Flush 3 Ml Syringe) [facility] Last Admin: 10/03/21 09:41 Dose: 3 ml Documented by: KAMI Labs CBC & Chem 7: 10/03/21 05:29 10/03/21 05:29 Labs: Laboratory Results - last 24 hr 10/02/21 10/02/21 10/02/21 10:03 18:10 18:41 MCV MCH MCHC RDW Plt Count MPV Absolute Nucleated RBC Nucleated RBC % (auto) Anion Gap Estim Creat Clear Calc Estimated GFR POC Glucose 66 81 Random Glucose Calcium Blood Type O Positive Antibody Screen NEGATIVE Crossmatch See Detail 10/02/21 10/03/21 10/03/21 19:49 05:29 05:29 MCV 76.4 L MCH 24.3 L MCHC 31.8 RDW 20.6 H Plt Count 345 MPV 9.6 Absolute Nucleated RBC 0.000 Nucleated RBC % (auto) 0.0 Anion Gap 8 L Estim Creat Clear Calc 59.9 Estimated GFR > 60 POC Glucose 90 Random Glucose 82 Calcium 7.3 L Blood Type Antibody Screen Crossmatch 10/03/21 10/03/21 06:59 11:24 MCV MCH MCHC RDW Plt Count MPV Absolute Nucleated RBC Nucleated RBC % (auto) Anion Gap Estim Creat Clear Calc Estimated GFR POC Glucose 70 102 Random Glucose Calcium Blood Type Antibody Screen Crossmatch Microbiology Microbiology Results: Microbiology 10/02/21 10:36 Urine Culture - Preliminary Urine Catheterized - Straight Catheter Gram negative tess Gram positive cocci 10/02/21 00:15 Blood Culture - Preliminary Blood - Venous No growth after 24 hours. 10/02/21 00:20 Blood Culture - Preliminary Blood - Venous No growth after 24 hours. Procedures Date of Service Date of Service: 10/03/21 Progress Note: A&P Assessment and plan (1) Enterovesical fistula: Status: Acute Assessment and Plan: With advanced recurrent ovarian cancer Also with distant Mets Carcinomatosis, studding on CT Patient not a candidate for surgical intervention at this point Hospice care recommended Explained this to family again at bedside Fall Risk Details Current Medications: Current Medications Acetaminophen (Acetaminophen 325 Mg Tablet) 650 mg PO Q6H PRN PRN Reason: Pain, Mild (Pain Scale 1-3) Last Admin: 10/02/21 21:05 Dose: 650 mg Documented by: Dextrose (Dextrose 50 % 25 Gm/50 Ml Syringe) 25 gm IVPUSH Q15M PRN; Protocol PRN Reason: per Hypoglycemia Standing Ord. Famotidine (Famotidine 20 Mg Tablet) 20 mg PO BID PRN PRN Reason: heartburn Fentanyl (Fentanyl 25 Mcg Patch.Td72) 25 mcg TRANSDERMA Q3D [facility] Last Admin: 10/02/21 06:30 Dose: Not Given Documented by: Glucose (Glucose Gel 15 Gm Gel..Gram.) 15 gm PO Q15M PRN; Protocol PRN Reason: per Hypoglycemia Standing Ord. Heparin Sodium (Porcine) (Heparin Sodium,Porcine 5,000 Unit/Ml Vial) 5,000 unit SUBCUT Q8H [facility] Last Admin: 10/03/21 09:36 Dose: 5,000 unit Documented by: Dextrose/Sodium Chloride (D51/2ns) 1,000 mls @ 100 mls/hr IVCONT .Q10H [facility] Last Admin: 10/03/21 10:37 Dose: 100 mls/hr Documented by: Piperacillin Sod/Tazobactam (Sod 3.375 gm/ Sodium Chloride) 50 mls @ 100 mls/hr IV Q6H [facility] Last Infusion: 10/03/21 10:39 Dose: Infused Documented by: Insulin Human Lispro (Insulin Lispro 100 Unit/Ml 3 Ml Vial) 0 unit SUBCUT QIDACHS [facility]; Protocol Last Admin: 10/03/21 12:19 Dose: Not Given Documented by: Melatonin (Melatonin 3 Mg Tablet) 6 mg PO BEDTIME PRN PRN Reason: Insomnia Last Admin: 10/02/21 21:05 Dose: 6 mg Documented by: Morphine Sulfate (Morphine Sulfate 4 Mg/Ml Cartridge) 3 mg IVPUSH Q3H PRN; Protocol PRN Reason: Pain, Mild (Pain Scale 1-3) Last Admin: 10/02/21 13:47 Dose: 3 mg Documented by: Ondansetron HCl (Ondansetron Hcl 4 Mg/2 Ml Vial) 4 mg IVPUSH Q4H PRN PRN Reason: Nausea and Vomiting Last Admin: 10/03/21 12:00 Dose: 4 mg Documented by: Oxycodone HCl (Oxycodone Hcl Immed Release 5 Mg Tablet) 5 mg PO Q4H PRN PRN Reason: Pain, Mild (Pain Scale 1-3) Last Admin: 10/03/21 09:38 Dose: 5 mg Documented by: Senna/Docusate Sodium (Sennosides/Docusate Sodium Tablet) 2 tab PO DAILY [facility] Last Admin: 10/03/21 09:37 Dose: 2 tab Documented by: Sodium Chloride (0.9 % Sodium Chloride Flush 3 Ml Syringe) 3 ml IVFLUSH QSHIFT [facility] Last Admin: 10/03/21 09:41 Dose: 3 ml Documented by: Time Spent With Patient Time: Total time spent is greater than 50% in coordination of care (as documented) at patient's floor/unit and/or counseling patient: Time with patient: 15 - 24 minutes Quality Stroke Does the patient have a stroke diagnosis?: No VTE Prior VTE?: No VTE Risk Level:: Medical - moderate - high VTE Device Contraindication: Treatment Not Indicated VTE Drug Contraindication: N/A - Med Ordered
[2021-10-03 14:06] VITALS: BMI 17.1
--- NOTE | 2021-10-03 14:16 | MHC.CLN ---
NUTRITION CONSULT FOR SKIN REDNESS. DOES NOT APPEAR TO BE PRESSURE INJURY. DIET=REGULAR. ADDING ENSURE BID (700 KCAL, 40 G PROTEIN). PATIENT REPORTS THAT TAKES ENSURE AT HOME AND WOULD LIKE TWICE DAILY. SUSPECTS WEIGHT LOSS, BUT UNABLE TO PROVIDE ADDITIONAL INFORMATION. REPORTS RECENT DECLINE IN INTAKE. FOLLOW FOR DIET TOLERANCE AND INTAKE.
[2021-10-03 15:51] VITALS: BP 121/59; PULSE 88; RESP 18; TEMP 36.9; O2SAT 96
--- NOTE | 2021-10-03 16:10 | MHC.CM.PN ---
EMR REVIEWED, PT W/ENTEROVESICULAR OAVARIAN FISTULA AND EXTENSIVE SPREAD TO LIVER, PERITNEUM AND LUNG NODULES, PER SURGICAL PT NOT A CANDIDATE FOR SURGERY AND THEY RECOMMEND HOSPICE HOWEVER PT'S FAMILY DOES NOT WANT HOSPICE AND WANT A SECOND OPINION, PER HOSPITALIST PT TO BE DISCHARGED HOME W/[facility] ONCE MEDICALY STABLE, REFERRAL PLACED TO [facility]. CM WILL CONT TO FOLLOW D/C NEEDS.
[2021-10-03] MEDS: Morphine Sulfate 4 MG/ML CARTRIDGE 3 MG IVPUSH ×2 (16:13→22:22)
[2021-10-03 16:54] LABS: Glucose, Whole Blood 156 mg/dL (60-115)
[2021-10-03 20:00] VITALS: BP 98/55; PULSE 85; RESP 16; TEMP 37.4; O2SAT 97
[2021-10-03 20:30] LABS: Glucose, Whole Blood 141 mg/dL (60-115)
[2021-10-03] MEDS: Melatonin 3 MG TABLET 6 MG PO (22:22)
[2021-10-04] VITALS (7 sets, daily range): BP systolic 90–108; BP diastolic 41–54; PULSE 60–82; RESP 16–18; TEMP 36–36.7; O2SAT 96–98
[2021-10-04] MEDS: Piperacillin Sodium/Tazobactam 3.375 GM in 0.9 % Sodium Chloride 50 ML IV ×4 (03:40→21:17)
[2021-10-04 06:03] LABS: Hematocrit 27.6 % (37.0-47.0); Hemoglobin 8.8 g/dl (12.0-16.0); Mean Corpuscular HGB Conc 31.9 g/dl (31.0-35.0); Mean Corpuscular Hemoglobin 24.3 pg (27.0-33.0); Mean Corpuscular Volume 76.2 fL (80.0-98.0); Mean Platelet Volume 9.1 fL (9.4-12.3); Platelet Count 334 X10*3/uL (160-400); Red Blood Count 3.62 X10*6/uL (4.20-5.50); Red Cell Distribution Width 20.8 % (11.0-16.0); White Blood Count 6.8 X10*3/uL (4.8-10.8)
[2021-10-04 06:26] LABS: Anion Gap 8 (12-20); Blood Urea Nitrogen 8 mg/dL (9-16); Calcium 7.2 mg/dL (8.4-10.2); Carbon Dioxide 25 mmol/L (22-29); Chloride 108 mmol/L (96-108); Estimated Glomerular Filt Rate > 60; Glucose Random 82 mg/dL (60-115); Potassium 3.6 mmol/L (3.3-5.1); Sodium 137 mmol/L (135-145)
[2021-10-04] MEDS: Heparin Sodium,Porcine 5,000 UNIT/ML VIAL 5000 UNIT SUBCUT ×3 (06:32→22:54)
[2021-10-04 07:15] LABS: Glucose, Whole Blood 71 mg/dL (60-115)
[2021-10-04] MEDS: Morphine Sulfate 4 MG/ML CARTRIDGE 3 MG IVPUSH ×2 (09:11→19:37)
[2021-10-04] MEDS: 0.9 % Sodium Chloride Flush 3 ML SYRINGE IVFLUSH ×2 (09:13→14:48)
[2021-10-04] MEDS: Lactated Ringers 1,000 ML 100 ML IVCONT ×2 (09:13→21:15)
[2021-10-04 11:18] LABS: Glucose, Whole Blood 93 mg/dL (60-115)
--- NOTE | 2021-10-04 11:33 | P.PNIM_ITS ---
Subjective Subjective Date of Service: 10/04/21 Interval History: seen and examined this morning at bedside also spoke with daughter on the phone at time of exam reporting abdominal discomfort, no vomiting denies fever, chills Review of Systems Review of Systems: Yes all other systems are reviewed and are negative Constitutional Constitutional: Denies chills and Denies fever(s) Cardiovascular Cardiovascular: Denies palpitations and Denies dyspnea Respiratory Respiratory: Denies dyspnea Gastrointestinal Gastrointestinal: Reports abdominal pain Endocrine Endocrine: Denies palpitations Physical Exam Vital Signs: Vital Signs: Last Vital Signs Temp 97 F 10/04/21 11:03 Pulse 68 10/04/21 11:03 Resp 18 10/04/21 11:03 BP 108/54 L 10/04/21 11:03 Pulse Ox 96 10/04/21 11:03 BMI result Body Mass Index 17.1 Const: General: cooperative, comfortable, no acute distress, alert and awake Nutritional Appearance: thin Eyes: Pupils: Equal, round and reactive pupils present Resp: Effort & Inspection: normal respiratory effort and able to speak in complete sentences Cardio: Rate: regular rate Heart sounds: S1 normal heart sound present and S2 normal heart sound present GI: Other: abdomen soft, tender on palpation, non-distended Palpation (GI): Soft to palpation Neuro: Cranial nerves: Yes Equal, round and reactive pupils present Objective Data Active Medications Acetaminophen (Acetaminophen 325 Mg Tablet) 650 mg PO Q6H PRN PRN Reason: Pain, Mild (Pain Scale 1-3) Last Admin: 10/02/21 21:05 Dose: 650 mg Documented by: TRACEY Dextrose (Dextrose 50 % 25 Gm/50 Ml Syringe) 25 gm IVPUSH Q15M PRN; Protocol PRN Reason: per Hypoglycemia Standing Ord. Famotidine (Famotidine 20 Mg Tablet) 20 mg PO BID PRN PRN Reason: heartburn Fentanyl (Fentanyl 25 Mcg Patch.Td72) 25 mcg TRANSDERMA Q3D [facility] Last Admin: 10/02/21 06:30 Dose: Not Given Documented by: SAKSHI Non-Admin Reason: Med Not Available Glucose (Glucose Gel 15 Gm Gel..Gram.) 15 gm PO Q15M PRN; Protocol PRN Reason: per Hypoglycemia Standing Ord. Heparin Sodium (Porcine) (Heparin Sodium,Porcine 5,000 Unit/Ml Vial) 5,000 unit SUBCUT Q8H [facility] Last Admin: 10/04/21 06:32 Dose: 5,000 unit Documented by: STEPHANIE Piperacillin Sod/Tazobactam (Sod 3.375 gm/ Sodium Chloride) 50 mls @ 100 mls/hr IV Q6H [facility] Last Infusion: 10/04/21 10:02 Dose: 0 mls/hr Documented by: NANY Lactated Ringer's (Lr) 1,000 mls @ 100 mls/hr IVCONT .Q10H [facility] Last Admin: 10/04/21 09:13 Dose: 100 mls/hr Documented by: NANY Insulin Human Lispro (Insulin Lispro 100 Unit/Ml 3 Ml Vial) 0 unit SUBCUT QIDACHS [facility]; Protocol Last Admin: 10/04/21 07:40 Dose: Not Given Documented by: NANY Non-Admin Reason: No Insulin Coverage Melatonin (Melatonin 3 Mg Tablet) 6 mg PO BEDTIME PRN PRN Reason: Insomnia Last Admin: 10/03/21 22:22 Dose: 6 mg Documented by: TRACEY Morphine Sulfate (Morphine Sulfate 4 Mg/Ml Cartridge) 3 mg IVPUSH Q3H PRN; Protocol PRN Reason: Pain, Mild (Pain Scale 1-3) Last Admin: 10/04/21 09:11 Dose: 3 mg Documented by: NANY Ondansetron HCl (Ondansetron Hcl 4 Mg/2 Ml Vial) 4 mg IVPUSH Q4H PRN PRN Reason: Nausea and Vomiting Last Admin: 10/03/21 12:00 Dose: 4 mg Documented by: KAMI Oxycodone HCl (Oxycodone Hcl Immed Release 5 Mg Tablet) 5 mg PO Q4H PRN PRN Reason: Pain, Mild (Pain Scale 1-3) Last Admin: 10/03/21 09:38 Dose: 5 mg Documented by: KAMI Senna/Docusate Sodium (Sennosides/Docusate Sodium Tablet) 2 tab PO DAILY [facility] Last Admin: 10/04/21 09:19 Dose: Not Given Documented by: NANY Non-Admin Reason: Patient Refused Sodium Chloride (0.9 % Sodium Chloride Flush 3 Ml Syringe) 3 ml IVFLUSH QSHIFT [facility] Last Admin: 10/04/21 09:13 Dose: 3 ml Documented by: NANY Labs CBC & Chem 7: 10/04/21 05:38 10/04/21 05:38 Labs: Laboratory Results - last 24 hr 10/03/21 10/03/21 10/04/21 16:51 20:18 05:38 MCV 76.2 L MCH 24.3 L MCHC 31.9 RDW 20.8 H Plt Count 334 MPV 9.1 L Absolute Nucleated RBC 0.000 Nucleated RBC % (auto) 0.0 Anion Gap Estim Creat Clear Calc Estimated GFR POC Glucose 156 H 141 H Random Glucose Calcium 10/04/21 10/04/21 10/04/21 05:38 07:11 11:02 MCV MCH MCHC RDW Plt Count MPV Absolute Nucleated RBC Nucleated RBC % (auto) Anion Gap 8 L Estim Creat Clear Calc 58.0 Estimated GFR > 60 POC Glucose 71 93 Random Glucose 82 Calcium 7.2 L Microbiology Microbiology Results: Microbiology 10/02/21 10:36 Urine Culture - Preliminary Urine Catheterized - Straight Catheter Gram negative tess Gram positive cocci 10/02/21 00:15 Blood Culture - Preliminary Blood - Venous No growth after 48 hours. 10/02/21 00:20 Blood Culture - Preliminary Blood - Venous No growth after 48 hours. Assessment and Plan (1) Enterovesical fistula: Status: Acute (2) UTI (urinary tract infection): Status: Acute (3) Disseminated ovarian cancer: Status: Chronic Plan 66-year-old female with a past medical history of diabetes, history of ovarian ca, hx Enterovesical Fistula; Wears diapers; has Fecal contents in urine p/w Burning/redness of Labia and Burning urination/Abd pain for couple days; noted UTI/Labial cellulits; CT abdomen showed possible Ileus; Enterovesical Fistula. Admitted for following. Abd pain/ILeus, No SBO tolerating regular diet IV fluids General surgery following, not a surgical candidate due to extensive cancer Supportive care.?? UTI/Labial Cellulitis, secondary to stool leaking out of the bladder from fistula? continue Zosyn?? Seen by ID, rec continue zosyn for now Moses catheter within the bladder extends into a loop of small bowel within the pelvis, confirming an enterovesicular fistula, not draining, will remove, patient feeling better after removal UCx growing GNR, gram positive cocci, follow final sensitivities BCx negative to date Ovarian Ca Now with peritoneal carcinomatosis extensive spread now to liver, peritoneum, bladder and pulmonary nodules?noted Seen by oncology, no longer candidate for palliative chemotherapy, recommend hospice care Previous ACP discussion with family, continues to be full code Continue pain management Iron Deficiency Anemia baseline Hgb around 8.0; AM CBC showed Hgb of 6.6 s/p 1 unit PRBC follow CBC. Diabetes Insulin sliding scale Discussed case with family, patient remains full code despite poor prognosis and fistula. See advance care planning note DVT prophylaxis : [facility] Code status:? Full Code Attending Dr. Freitas Quality Stroke Does the patient have a stroke diagnosis?: No VTE Prior VTE?: No VTE Risk Level:: Medical - moderate - high VTE Device Contraindication: Treatment Not Indicated VTE Drug Contraindication: N/A - Med Ordered
[2021-10-04] MEDS: oxyCODONE HCl Immed Release 5 MG TABLET PO (14:47)
--- NOTE | 2021-10-04 15:32 | MHC.CM.PN ---
NURSE SENIOR MAINTENANCE TECHNICIAN NOTE ELECTRONIC MEDICAL REOCRD REVIEWED ALONG WITH CASE DISCUSSED ON MULTIPLE DISCIPLIANRY ROUNDS, INIATIAL REFERRAL TO [facility] GIVERS FOR [facility] DECLINED UINABLE TO ACCEPT PATIENT. 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
[2021-10-04 16:35] LABS: Glucose, Whole Blood 105 mg/dL (60-115)
[2021-10-04] MEDS: ondansetron HCL 4 MG/2 ML VIAL IVPUSH (19:32)
[2021-10-04 21:13] LABS: Glucose, Whole Blood 116 mg/dL (60-115)
[2021-10-05] VITALS (7 sets, daily range): BP systolic 90–116; BP diastolic 50–58; PULSE 63–95; RESP 17–18; TEMP 36.1–37.2; O2SAT 95–98
[2021-10-05] MEDS: Piperacillin Sodium/Tazobactam 3.375 GM in 0.9 % Sodium Chloride 50 ML IV ×4 (03:52→20:57)
[2021-10-05] MEDS: Heparin Sodium,Porcine 5,000 UNIT/ML VIAL 5000 UNIT SUBCUT ×3 (06:00→23:36)
[2021-10-05 06:15] LABS: Hematocrit 30.3 % (37.0-47.0); Hemoglobin 9.1 g/dl (12.0-16.0); Mean Corpuscular Hemoglobin 23.8 pg (27.0-33.0); Mean Corpuscular Volume 79.3 fL (80.0-98.0); Mean Platelet Volume 9.4 fL (9.4-12.3); Platelet Count 318 X10*3/uL (160-400); Red Blood Count 3.82 X10*6/uL (4.20-5.50); Red Cell Distribution Width 21.8 % (11.0-16.0); White Blood Count 7.7 X10*3/uL (4.8-10.8)
[2021-10-05 07:28] LABS: Glucose, Whole Blood 59 mg/dL (60-115)
[2021-10-05] MEDS: Morphine Sulfate 4 MG/ML CARTRIDGE 3 MG IVPUSH (07:39)
[2021-10-05] MEDS: Lactated Ringers 1,000 ML 100 ML IVCONT ×2 (07:40→21:35)
[2021-10-05 08:16] LABS: Glucose, Whole Blood 82 mg/dL (60-115)
--- NOTE | 2021-10-05 08:35 | PM.PNGS ---
Subjective Subjective Date of Service: 10/05/21 Interval history: states she is okay with vaginal drainage some lower abdominal pain although not worse says she has oral intake Physical Exam Vital Signs: Vital Signs: Last Vital Signs Temp 98 F 10/05/21 07:03 Pulse 75 10/05/21 07:03 Resp 18 10/05/21 07:03 BP 90/50 L 10/05/21 07:03 Pulse Ox 95 10/05/21 07:03 BMI result Body Mass Index 17.1 Const: Other: appears very frail answers questions General: no acute distress Resp: Effort & Inspection: normal respiratory effort GI: Palpation (GI): Soft to palpation, not firm, no guarding and not rigid Objective Data Active Medications Acetaminophen (Acetaminophen 325 Mg Tablet) 650 mg PO Q6H PRN PRN Reason: Pain, Mild (Pain Scale 1-3) Last Admin: 10/02/21 21:05 Dose: 650 mg Documented by: CASTILJed Dextrose (Dextrose 50 % 25 Gm/50 Ml Syringe) 25 gm IVPUSH Q15M PRN; Protocol PRN Reason: per Hypoglycemia Standing Ord. Famotidine (Famotidine 20 Mg Tablet) 20 mg PO BID PRN PRN Reason: heartburn Fentanyl (Fentanyl 25 Mcg Patch.Td72) 25 mcg TRANSDERMA Q3D [facility] Last Admin: 10/05/21 06:06 Dose: Not Given Documented by: CASEY Non-Admin Reason: pt refused, reports it makes her nauseous Glucose (Glucose Gel 15 Gm Gel..Gram.) 15 gm PO Q15M PRN; Protocol PRN Reason: per Hypoglycemia Standing Ord. Heparin Sodium (Porcine) (Heparin Sodium,Porcine 5,000 Unit/Ml Vial) 5,000 unit SUBCUT Q8H [facility] Last Admin: 10/05/21 06:00 Dose: 5,000 unit Documented by: CASEY Piperacillin Sod/Tazobactam (Sod 3.375 gm/ Sodium Chloride) 50 mls @ 100 mls/hr IV Q6H [facility] Last Infusion: 10/05/21 04:25 Dose: 0 mls/hr Documented by: CASEY Lactated Ringer's (Lr) 1,000 mls @ 100 mls/hr IVCONT .Q10H [facility] Last Admin: 10/05/21 07:40 Dose: 100 mls/hr Documented by: NANY Insulin Human Lispro (Insulin Lispro 100 Unit/Ml 3 Ml Vial) 0 unit SUBCUT QIDACHS [facility]; Protocol Last Admin: 10/05/21 07:40 Dose: Not Given Documented by: NANY Non-Admin Reason: No Insulin Coverage Melatonin (Melatonin 3 Mg Tablet) 6 mg PO BEDTIME PRN PRN Reason: Insomnia Last Admin: 10/03/21 22:22 Dose: 6 mg Documented by: CASTILJed Morphine Sulfate (Morphine Sulfate 4 Mg/Ml Cartridge) 3 mg IVPUSH Q3H PRN; Protocol PRN Reason: Pain, Mild (Pain Scale 1-3) Last Admin: 10/05/21 07:39 Dose: 3 mg Documented by: NANY Ondansetron HCl (Ondansetron Hcl 4 Mg/2 Ml Vial) 4 mg IVPUSH Q4H PRN PRN Reason: Nausea and Vomiting Last Admin: 10/04/21 19:32 Dose: 4 mg Documented by: NANY Oxycodone HCl (Oxycodone Hcl Immed Release 5 Mg Tablet) 5 mg PO Q4H PRN PRN Reason: Pain, Mild (Pain Scale 1-3) Last Admin: 10/04/21 14:47 Dose: 5 mg Documented by: NANY Senna/Docusate Sodium (Sennosides/Docusate Sodium Tablet) 2 tab PO DAILY [facility] Last Admin: 10/04/21 09:19 Dose: Not Given Documented by: NANY Non-Admin Reason: Patient Refused Sodium Chloride (0.9 % Sodium Chloride Flush 3 Ml Syringe) 3 ml IVFLUSH QSMDFT [facility] Last Admin: 10/05/21 07:40 Dose: Not Given Documented by: NANY Non-Admin Reason: IV Running Labs CBC & Chem 7: 10/05/21 05:47 10/04/21 05:38 Labs: Laboratory Results - last 24 hr 10/04/21 10/04/21 10/04/21 11:02 16:17 21:08 MCV MCH MCHC RDW Plt Count MPV Absolute Nucleated RBC Nucleated RBC % (auto) POC Glucose 93 105 116 H 10/05/21 10/05/21 10/05/21 05:47 07:03 08:13 MCV 79.3 L MCH 23.8 L MCHC 30.0 L RDW 21.8 H Plt Count 318 MPV 9.4 Absolute Nucleated RBC 0.000 Nucleated RBC % (auto) 0.0 POC Glucose 59 L* 82 Microbiology Microbiology Results: Microbiology 10/02/21 10:36 Urine Culture - Preliminary Urine Catheterized - Straight Catheter Gram negative tess Gram positive cocci Procedures Date of Service Date of Service: 10/05/21 Progress Note: A&P Assessment and plan (1) Enterovesical fistula: Status: Acute Assessment and Plan: has extensive metastatic ovarian cancer with malignant enterovesical fistula multiple discussions with family - surgical intervention will not provide significant benefit, with high perioperative risks prognosis grim hospice care had been recommended in the past - family apparently still resistant to this Fall Risk Details Current Medications: Current Medications Acetaminophen (Acetaminophen 325 Mg Tablet) 650 mg PO Q6H PRN PRN Reason: Pain, Mild (Pain Scale 1-3) Last Admin: 10/02/21 21:05 Dose: 650 mg Documented by: Dextrose (Dextrose 50 % 25 Gm/50 Ml Syringe) 25 gm IVPUSH Q15M PRN; Protocol PRN Reason: per Hypoglycemia Standing Ord. Famotidine (Famotidine 20 Mg Tablet) 20 mg PO BID PRN PRN Reason: heartburn Fentanyl (Fentanyl 25 Mcg Patch.Td72) 25 mcg TRANSDERMA Q3D [facility] Last Admin: 10/05/21 06:06 Dose: Not Given Documented by: Glucose (Glucose Gel 15 Gm Gel..Gram.) 15 gm PO Q15M PRN; Protocol PRN Reason: per Hypoglycemia Standing Ord. Heparin Sodium (Porcine) (Heparin Sodium,Porcine 5,000 Unit/Ml Vial) 5,000 unit SUBCUT Q8H [facility] Last Admin: 10/05/21 06:00 Dose: 5,000 unit Documented by: Piperacillin Sod/Tazobactam (Sod 3.375 gm/ Sodium Chloride) 50 mls @ 100 mls/hr IV Q6H [facility] Last Infusion: 10/05/21 04:25 Dose: Infused Documented by: Lactated Ringer's (Lr) 1,000 mls @ 100 mls/hr IVCONT .Q10H [facility] Last Admin: 10/05/21 07:40 Dose: 100 mls/hr Documented by: Insulin Human Lispro (Insulin Lispro 100 Unit/Ml 3 Ml Vial) 0 unit SUBCUT QIDACHS [facility]; Protocol Last Admin: 10/05/21 07:40 Dose: Not Given Documented by: Melatonin (Melatonin 3 Mg Tablet) 6 mg PO BEDTIME PRN PRN Reason: Insomnia Last Admin: 10/03/21 22:22 Dose: 6 mg Documented by: Morphine Sulfate (Morphine Sulfate 4 Mg/Ml Cartridge) 3 mg IVPUSH Q3H PRN; Protocol PRN Reason: Pain, Mild (Pain Scale 1-3) Last Admin: 10/05/21 07:39 Dose: 3 mg Documented by: Ondansetron HCl (Ondansetron Hcl 4 Mg/2 Ml Vial) 4 mg IVPUSH Q4H PRN PRN Reason: Nausea and Vomiting Last Admin: 10/04/21 19:32 Dose: 4 mg Documented by: Oxycodone HCl (Oxycodone Hcl Immed Release 5 Mg Tablet) 5 mg PO Q4H PRN PRN Reason: Pain, Mild (Pain Scale 1-3) Last Admin: 10/04/21 14:47 Dose: 5 mg Documented by: Senna/Docusate Sodium (Sennosides/Docusate Sodium Tablet) 2 tab PO DAILY [facility] Last Admin: 10/04/21 09:19 Dose: Not Given Documented by: Sodium Chloride (0.9 % Sodium Chloride Flush 3 Ml Syringe) 3 ml IVFLUSH [facility] Last Admin: 10/05/21 07:40 Dose: Not Given Documented by: Time Spent With Patient Time: Total time spent is greater than 50% in coordination of care (as documented) at patient's floor/unit and/or counseling patient: Time with patient: 15 - 24 minutes Quality Stroke Does the patient have a stroke diagnosis?: No VTE Prior VTE?: No VTE Risk Level:: Medical - moderate - high VTE Device Contraindication: Treatment Not Indicated VTE Drug Contraindication: N/A - Med Ordered
--- NOTE | 2021-10-05 08:39 | P.CDIC_ITS ---
CDI Concurrent Query Documentation Clarification: PHYSICIAN'S DOCUMENTATION REQUEST Date of Query: 10/05/21 0840 Patient Name: Emani Turner Admit Date: 10/02/21 Dear Doctor, A review of the medical record indicates additional documentation may be needed. Please review below and update the documentation accordingly. Risk Factors/Clinical Indicators/Treatments Nutrition notes 10/03- patient underweight with BMI 17.1 Ensure BID Advanced ovarian cancer with mets. If possible, please provide an associated diagnosis related to the abnormal BMI, such as: For a BMI <= 19: * Underweight * Weight loss * Cachexia * Anorexia * Malnutrition, mild, moderate etc Or: * BMI is not significant * Other (please specify) * Unable to determine Use of terms such as suspected, likely, concern for, or probable (associated with a specific diagnosis that is being evaluated, monitored, or treated as if it exists) are acceptable and can be coded in the inpatient setting, when documented at the time of discharge. Thank you, Carmen Goldberg [facility], CDIS Extension: [phone] Please use your independent medical judgment in providing your response. THIS QUERY IS PART OF THE PERMANENT MEDICAL RECORD Provider Response: Moderate Protein-Calorie Malnutrition
[2021-10-05] MEDS: ondansetron HCL 4 MG/2 ML VIAL IVPUSH ×2 (08:57→15:08)
--- NOTE | 2021-10-05 11:17 | MHC.CM.PN ---
EMR REVIEWED, PT REMAINS ON IVF, PLAN TO WEAN PT OFF IVF AND IV MORPHINE, ANTIC D/C IN 1-2 DAYS HOME W/[facility] PALLIATIVE CARE W/RESUMP [employer] MEDICAID HRS AND [facility] PALLIATIVE CARE W/FAMILY FOR TRASNPORT.
[2021-10-05 11:25] LABS: Glucose, Whole Blood 112 mg/dL (60-115)
--- NOTE | 2021-10-05 12:09 | MHC.SLORD ---
Speech Language Pathology Order Status: Interviewed patient and Nurse regarding medication discomfort. We reviewed the fact that the patient is tolerating all po at bedside but has some measure of globus when swallowing pills. This is a mary ann discussion to have with the patient's MD, nursing and the patient, as the VALVER can not identify the correct way to pass medication for ease or comfort or which medications could best suit the patient to decrease presumed sensation of globus. No follow-up needed by the VALVER but certainly could take a phone call for clarification if need be.
--- NOTE | 2021-10-05 12:16 | HO.PM.IMPN ---
Subjective Subjective Date of Service: 10/05/21 Interval History: seen and examined this morning follow up for UTI having some abdominal pain, no nausea at this time no fevers, chills Review of Systems Review of Systems: Yes all other systems are reviewed and are negative Constitutional Constitutional: Denies chills and Denies fever(s) Cardiovascular Cardiovascular: Denies dyspnea Respiratory Respiratory: Denies dyspnea Gastrointestinal Gastrointestinal: Reports abdominal pain, Denies nausea and Denies vomiting Physical Exam Vital Signs: Vital Signs: Last Vital Signs Temp 97 F 10/05/21 11:18 Pulse 81 10/05/21 11:18 Resp 18 10/05/21 11:18 BP 116/58 L 10/05/21 11:18 Pulse Ox 98 10/05/21 11:18 BMI result Body Mass Index 17.1 Const: General: cooperative, comfortable, no acute distress, alert and awake Nutritional Appearance: thin Eyes: Pupils: Equal, round and reactive pupils present Resp: Effort & Inspection: normal respiratory effort and able to speak in complete sentences Cardio: Rate: regular rate Heart sounds: S1 normal heart sound present and S2 normal heart sound present GI: Other: abdomen soft, tender on palpation, non-distended Palpation (GI): Soft to palpation Neuro: Cranial nerves: Yes Equal, round and reactive pupils present Objective Data Active Medications Acetaminophen (Acetaminophen 325 Mg Tablet) 650 mg PO Q6H PRN PRN Reason: Pain, Mild (Pain Scale 1-3) Last Admin: 10/02/21 21:05 Dose: 650 mg Documented by: TRACEY Dextrose (Dextrose 50 % 25 Gm/50 Ml Syringe) 25 gm IVPUSH Q15M PRN; Protocol PRN Reason: per Hypoglycemia Standing Ord. Famotidine (Famotidine 20 Mg Tablet) 20 mg PO BID PRN PRN Reason: heartburn Fentanyl (Fentanyl 25 Mcg Patch.Td72) 25 mcg TRANSDERMA Q3D [facility] Last Admin: 10/05/21 06:06 Dose: Not Given Documented by: CASEY Non-Admin Reason: pt refused, reports it makes her nauseous Glucose (Glucose Gel 15 Gm Gel..Gram.) 15 gm PO Q15M PRN; Protocol PRN Reason: per Hypoglycemia Standing Ord. Heparin Sodium (Porcine) (Heparin Sodium,Porcine 5,000 Unit/Ml Vial) 5,000 unit SUBCUT Q8H [facility] Last Admin: 10/05/21 06:00 Dose: 5,000 unit Documented by: CASEY Piperacillin Sod/Tazobactam (Sod 3.375 gm/ Sodium Chloride) 50 mls @ 100 mls/hr IV Q6H [facility] Last Infusion: 10/05/21 09:45 Dose: 0 mls/hr Documented by: NANY Lactated Ringer's (Lr) 1,000 mls @ 100 mls/hr IVCONT .Q10H [facility] Last Admin: 10/05/21 07:40 Dose: 100 mls/hr Documented by: NANY Insulin Human Lispro (Insulin Lispro 100 Unit/Ml 3 Ml Vial) 0 unit SUBCUT QIDACHS [facility]; Protocol Last Admin: 10/05/21 07:40 Dose: Not Given Documented by: NANY Non-Admin Reason: No Insulin Coverage Melatonin (Melatonin 3 Mg Tablet) 6 mg PO BEDTIME PRN PRN Reason: Insomnia Last Admin: 10/03/21 22:22 Dose: 6 mg Documented by: TRACEY Morphine Sulfate (Morphine Sulfate 4 Mg/Ml Cartridge) 2 mg IVPUSH Q4H PRN; Protocol PRN Reason: Pain, Severe (Pain Scale 7-10) Ondansetron HCl (Ondansetron Hcl 4 Mg/2 Ml Vial) 4 mg IVPUSH Q4H PRN PRN Reason: Nausea and Vomiting Last Admin: 10/05/21 08:57 Dose: 4 mg Documented by: NANY Oxycodone HCl (Oxycodone Hcl Immed Release 5 Mg Tablet) 5 mg PO Q4H PRN PRN Reason: Pain, Mild (Pain Scale 1-3) Last Admin: 10/04/21 14:47 Dose: 5 mg Documented by: NANY Senna/Docusate Sodium (Sennosides/Docusate Sodium Tablet) 2 tab PO DAILY [facility] Last Admin: 10/05/21 08:59 Dose: Not Given Documented by: NANY Non-Admin Reason: Patient Refused Sodium Chloride (0.9 % Sodium Chloride Flush 3 Ml Syringe) 3 ml IVFLUSH QSHIFT [facility] Last Admin: 10/05/21 07:40 Dose: Not Given Documented by: NANY Non-Admin Reason: IV Running Labs CBC & Chem 7: 10/05/21 05:47 10/04/21 05:38 Labs: Laboratory Results - last 24 hr 10/04/21 10/04/21 10/05/21 16:17 21:08 05:47 MCV 79.3 L MCH 23.8 L MCHC 30.0 L RDW 21.8 H Plt Count 318 MPV 9.4 Absolute Nucleated RBC 0.000 Nucleated RBC % (auto) 0.0 POC Glucose 105 116 H 10/05/21 10/05/21 10/05/21 07:03 08:13 11:18 MCV MCH MCHC RDW Plt Count MPV Absolute Nucleated RBC Nucleated RBC % (auto) POC Glucose 59 L* 82 112 Microbiology Microbiology Results: Microbiology 10/02/21 10:36 Urine Culture - Preliminary Urine Catheterized - Straight Catheter Enterobacter cloacae Enterococcus faecium Assessment and Plan (1) Enterovesical fistula: Status: Acute (2) UTI (urinary tract infection): Status: Acute (3) Disseminated ovarian cancer: Status: Chronic Plan 66-year-old female with a past medical history of diabetes, history of ovarian ca, hx Enterovesical Fistula; Wears diapers; has Fecal contents in urine p/w Burning/redness of Labia and Burning urination/Abd pain for couple days; noted UTI/Labial cellulits; CT abdomen showed possible Ileus; Enterovesical Fistula. Admitted for following. Abd pain/ILeus, No SBO tolerating regular diet IV fluids General surgery following, not a surgical candidate due to extensive cancer Supportive care.?? UTI/Labial Cellulitis, secondary to stool leaking out of the bladder from fistula?? Seen by ID Moses catheter within the bladder extends into a loop of small bowel within the pelvis, confirming an enterovesicular fistula, not draining, will remove, patient feeling better after removal UCx growing enterobacter cloacae, enterococcus faecium; sensitivities for enterobacter sent to reference laboratory for susceptibility testing Will continue IV zosyn for now BCx negative to date Ovarian Ca Now with peritoneal carcinomatosis extensive spread now to liver, peritoneum, bladder and pulmonary nodules?noted Seen by oncology, no longer candidate for palliative chemotherapy, recommend hospice care Previous ACP discussion with family, continues to be full code start weaning IV pain meds Iron Deficiency Anemia baseline Hgb around 8.0; AM CBC showed Hgb of 6.6 s/p 1 unit PRBC H/H stable Diabetes episode of asymptomatic hypoglycemia this am likely from decreased po intake Insulin sliding scale Discussed case with family, patient remains full code despite poor prognosis and fistula. See advance care planning note DVT prophylaxis : [facility] Code status:? Full Code Attending Dr. Freitas Quality Stroke Does the patient have a stroke diagnosis?: No VTE Prior VTE?: No VTE Risk Level:: Medical - moderate - high VTE Device Contraindication: Treatment Not Indicated VTE Drug Contraindication: N/A - Med Ordered
--- NOTE | 2021-10-05 13:13 | MHC.CLN ---
F/U DIET=REGULAR. ENSURE BID (700 KCAL, 40 G PROTEIN) TO PROVIDE ADDITIONAL NUTRITION AND PER PATIENT PREFERENCE. CURRENT INTAKE APPEARS FAIR TO GOOD. CONTINUE TO FOLLOW FOR DIET TOLERANCE AND INTAKE.
[2021-10-05] MEDS: Morphine Sulfate 4 MG/ML CARTRIDGE 2 MG IVPUSH ×2 (14:07→17:54)
[2021-10-05 15:59] LABS: Glucose, Whole Blood 140 mg/dL (60-115)
[2021-10-05 19:58] LABS: Glucose, Whole Blood 119 mg/dL (60-115)
[2021-10-05] MEDS: 0.9 % Sodium Chloride Flush 3 ML SYRINGE IVFLUSH (23:35)
[2021-10-06] VITALS (8 sets, daily range): BP systolic 88–102; BP diastolic 49–58; PULSE 75–85; RESP 15–18; TEMP 36.2–36.8; O2SAT 94–96
[2021-10-06] MEDS: Piperacillin Sodium/Tazobactam 3.375 GM in 0.9 % Sodium Chloride 50 ML IV ×4 (03:20→20:32)
[2021-10-06 07:47] LABS: Glucose, Whole Blood 77 mg/dL (60-115)
[2021-10-06] MEDS: Lactated Ringers 1,000 ML 100 ML IVCONT ×2 (07:57→18:50)
[2021-10-06] MEDS: 0.9 % Sodium Chloride Flush 3 ML SYRINGE IVFLUSH (07:59)
[2021-10-06] MEDS: Heparin Sodium,Porcine 5,000 UNIT/ML VIAL 5000 UNIT SUBCUT ×2 (07:59→14:56)
--- NOTE | 2021-10-06 09:19 | PC.NURSE ---
Pt on Piperacillin Sodium/Tazobactam , she is allergic to penicillin. Verified with pharmacy, they state ok to give as pt has had it over the past few days and tolerated well.
[2021-10-06 12:10] LABS: Glucose, Whole Blood 82 mg/dL (60-115)
--- NOTE | 2021-10-06 12:25 | P.PNIM_ITS ---
Subjective Subjective Date of Service: 10/06/21 Review of Systems seen and examined this morning follow up for UTI Feeling weak and dizzy today no fevers, chills Physical Exam Vital Signs: Vital Signs: Last Vital Signs Temp 98.0 F 10/06/21 12:00 Pulse 82 10/06/21 12:00 Resp 18 10/06/21 12:00 BP 92/52 L 10/06/21 12:00 Pulse Ox 95 10/06/21 12:00 BMI result Body Mass Index 17.1 Appearing in no acute distress lung sounds are clear to auscultation heart regular rate rhythm, clear S1, S2 positive bowel sounds, abdomen is soft, nontender neuro patient is alert x3, no focal deficits Objective Data Active Medications Acetaminophen (Acetaminophen 325 Mg Tablet) 650 mg PO Q6H PRN PRN Reason: Pain, Mild (Pain Scale 1-3) Last Admin: 10/02/21 21:05 Dose: 650 mg Documented by: TRACEY Dextrose (Dextrose 50 % 25 Gm/50 Ml Syringe) 25 gm IVPUSH Q15M PRN; Protocol PRN Reason: per Hypoglycemia Standing Ord. Famotidine (Famotidine 20 Mg Tablet) 20 mg PO BID PRN PRN Reason: heartburn Fentanyl (Fentanyl 25 Mcg Patch.Td72) 25 mcg TRANSDERMA Q3D [facility] Last Admin: 10/05/21 06:06 Dose: Not Given Documented by: CASEY Non-Admin Reason: pt refused, reports it makes her nauseous Glucose (Glucose Gel 15 Gm Gel..Gram.) 15 gm PO Q15M PRN; Protocol PRN Reason: per Hypoglycemia Standing Ord. Heparin Sodium (Porcine) (Heparin Sodium,Porcine 5,000 Unit/Ml Vial) 5,000 unit SUBCUT Q8H [facility] Last Admin: 10/06/21 07:59 Dose: 5,000 unit Documented by: CASEY Piperacillin Sod/Tazobactam (Sod 3.375 gm/ Sodium Chloride) 50 mls @ 100 mls/hr IV Q6H [facility] Last Infusion: 10/06/21 09:45 Dose: 0 mls/hr Documented by: CASEY Lactated Ringer's (Lr) 1,000 mls @ 100 mls/hr IVCONT .Q10H [facility] Last Admin: 10/06/21 12:02 Dose: Not Given Documented by: CASEY Non-Admin Reason: IV Running Insulin Human Lispro (Insulin Lispro 100 Unit/Ml 3 Ml Vial) 0 unit SUBCUT [facility]; Protocol Last Admin: 10/06/21 12:14 Dose: Not Given Documented by: CASEY Non-Admin Reason: No Insulin Coverage Melatonin (Melatonin 3 Mg Tablet) 6 mg PO BEDTIME PRN PRN Reason: Insomnia Last Admin: 10/03/21 22:22 Dose: 6 mg Documented by: JAKILJed Morphine Sulfate (Morphine Sulfate 4 Mg/Ml Cartridge) 2 mg IVPUSH Q4H PRN; Protocol PRN Reason: Pain, Severe (Pain Scale 7-10) Last Admin: 10/05/21 17:54 Dose: 2 mg Documented by: NANY Ondansetron HCl (Ondansetron Hcl 4 Mg/2 Ml Vial) 4 mg IVPUSH Q4H PRN PRN Reason: Nausea and Vomiting Last Admin: 10/05/21 15:08 Dose: 4 mg Documented by: NANY Oxycodone HCl (Oxycodone Hcl Immed Release 5 Mg Tablet) 5 mg PO Q4H PRN PRN Reason: Pain, Mild (Pain Scale 1-3) Last Admin: 10/04/21 14:47 Dose: 5 mg Documented by: NANY Senna/Docusate Sodium (Sennosides/Docusate Sodium Tablet) 2 tab PO DAILY [facility] Last Admin: 10/06/21 08:02 Dose: Not Given Documented by: CASEY Non-Admin Reason: Patient Refused Sodium Chloride (0.9 % Sodium Chloride Flush 3 Ml Syringe) 3 ml [facility]FLUSH [facility] Last Admin: 10/06/21 07:59 Dose: 3 ml Documented by: CASEY Labs CBC & Chem 7: 10/05/21 05:47 10/04/21 05:38 Labs: Laboratory Results - last 24 hr 10/05/21 10/05/21 10/06/21 15:31 19:42 07:36 POC Glucose 140 H 119 H 77 10/06/21 11:58 POC Glucose 82 Microbiology Microbiology Results: Microbiology 10/02/21 10:36 Urine Culture - Preliminary Urine Catheterized - Straight Catheter Enterobacter cloacae Enterococcus faecium Assessment and Plan (1) Enterovesical fistula: Status: Acute (2) UTI (urinary tract infection): Status: Acute (3) Disseminated ovarian cancer: Status: Chronic Plan 66-year-old female with a past medical history of diabetes, history of ovarian ca, hx Enterovesical Fistula; Wears diapers; has Fecal contents in urine p/w Burning/redness of Labia and Burning urination/Abd pain for couple days; noted UTI/Labial cellulits; CT abdomen showed possible Ileus; Enterovesical Fistula. Admitted for following. Hypotension. multifactorial from infection vs chronic, poor reserve continue IV fluids Monitor discussed with [employer], no need for ICU at this time. Abd pain/ILeus, No SBO tolerating regular diet IV fluids General surgery following, not a surgical candidate due to extensive cancer Supportive care.?? UTI/Labial Cellulitis, secondary to stool leaking out of the bladder from fistula?? Seen by ID UCx growing enterobacter cloacae, enterococcus faecium; sensitivities for ent erobacter sent to reference laboratory for susceptibility testing Will continue IV zosyn for now, can give Levaquin at discharge BCx negative to date Ovarian Ca Now with peritoneal carcinomatosis extensive spread now to liver, peritoneum, bladder and pulmonary nodules?noted Seen by oncology, no longer candidate for palliative chemotherapy, recommend hospice care, family declines Iron Deficiency Anemia s/p 1 unit PRBC H/H stable Diabetes Insulin sliding scale moderate protein calorie malnutrition as evidenced by loss of muscle mass and subcutaneous fat, BMI 17.1 and albumin 2.2 supplements ordered Discussed case with family, patient remains full code despite poor prognosis and fistula. See advance care planning note DVT prophylaxis : [facility] Code status:? Full Code Attending Dr. Freitas Quality Stroke Does the patient have a stroke diagnosis?: No VTE Prior VTE?: No VTE Risk Level:: Medical - moderate - high VTE Device Contraindication: Treatment Not Indicated VTE Drug Contraindication: N/A - Med Ordered
--- NOTE | 2021-10-06 14:33 | MHC.CM.PN ---
THIS IT SERVICE CONTINUITY SUPERVISOR MET WITH PATIENT AND SPOUSE (WITH PERMISSION) WITH ASSISTANCE OF [employer] SPEAKING STAFF MEMBER (PER PATIENT REQUEST, SHE IS FAMILIAR WITH THIS PERSON) THIS IT SERVICE CONTINUITY SUPERVISOR DID MAKE THREE CALLS TO DATA STORAGE SPECIALIST WITH NO ANSWER. (NO VOICEMAIL LEFT ) PATIENT AGREES THAT SON SOCORRO CORBETT ([phone]) AND DAUGHTER ATIYA ([phone]) ARE THE CHOSEN HCP AGENTS, IN THAT ORDER. HCP COMPLETED. PATIENT AKS THAT HER SPOUSE SOCORRO SIGN ON HER BEHALF, SHE IS EXPERIENCING HIGH LEVELS OF PAIN EVIDENCED BY PATIENT CRYING AND ASKING FOR MEDICATION. HCP COPIED, FAXED INTO [employer], AND PLACED IN [facility]ART [facility] IMM COMPLETED PER REQUEST SPOUSE NOW HAS ORIGINAL HCPS
[2021-10-06] MEDS: ondansetron HCL 4 MG/2 ML VIAL IVPUSH ×2 (14:46→18:57)
[2021-10-06] MEDS: Morphine Sulfate 4 MG/ML CARTRIDGE 2 MG IVPUSH ×2 (14:46→18:57)
--- NOTE | 2021-10-06 14:52 | MHC.CM.PN ---
CURRENTLY, [facility] IS ONLY AGENCY WILLING TO OFFER BUT CANNOT START CARE UNTIL Friday10/11/21. CASE MANAGEMENT TO UPDATE AGENCY, PATIENT COULD DC HOME EARLY Friday10/07/21. HOSPITALIST AWARE OF [facility]'S START OF CARE (POTENTIAL)
[2021-10-06 16:35] LABS: Glucose, Whole Blood 108 mg/dL (60-115)
[2021-10-06 19:57] LABS: Glucose, Whole Blood 143 mg/dL (60-115)
[2021-10-07] VITALS (7 sets, daily range): BP systolic 91–110; BP diastolic 50–59; PULSE 78–98; RESP 15–18; TEMP 36–37; O2SAT 93–98
[2021-10-07] MEDS: ondansetron HCL 4 MG/2 ML VIAL IVPUSH ×2 (00:01→08:54)
[2021-10-07] MEDS: Heparin Sodium,Porcine 5,000 UNIT/ML VIAL 5000 UNIT SUBCUT ×4 (00:02→21:32)
[2021-10-07] MEDS: Piperacillin Sodium/Tazobactam 3.375 GM in 0.9 % Sodium Chloride 50 ML IV (03:38)
[2021-10-07] MEDS: Lactated Ringers 1,000 ML 100 ML IVCONT (04:36)
[2021-10-07 06:20] LABS: Hematocrit 29.9 % (37.0-47.0); Hemoglobin 9.1 g/dl (12.0-16.0); Mean Corpuscular HGB Conc 30.4 g/dl (31.0-35.0); Mean Corpuscular Hemoglobin 23.7 pg (27.0-33.0); Mean Corpuscular Volume 77.9 fL (80.0-98.0); Mean Platelet Volume 9.2 fL (9.4-12.3); Platelet Count 379 X10*3/uL (160-400); Red Blood Count 3.84 X10*6/uL (4.20-5.50); Red Cell Distribution Width 21.4 % (11.0-16.0); White Blood Count 8.6 X10*3/uL (4.8-10.8)
[2021-10-07 07:15] LABS: Anion Gap 12 (12-20); Blood Urea Nitrogen 7 mg/dL (9-16); Calcium 7.6 mg/dL (8.4-10.2); Carbon Dioxide 27 mmol/L (22-29); Chloride 104 mmol/L (96-108); Creatinine Clr Calc Pharmacy 62.1; Estimated Glomerular Filt Rate > 60; Glucose Random 60 mg/dL (60-115); Potassium 4.7 mmol/L (3.3-5.1); Sodium 137 mmol/L (135-145)
[2021-10-07 07:46] LABS: Glucose, Whole Blood 60 mg/dL (60-115)
--- NOTE | 2021-10-07 08:10 | P.PNIM_ITS ---
Subjective Subjective Date of Service: 10/07/21 Review of Systems seen and examined this morning follow up for UTI Feeling better today no fevers, chills Physical Exam Vital Signs: Vital Signs: Last Vital Signs Temp 98.1 F 10/07/21 07:38 Pulse 86 10/07/21 07:38 Resp 16 10/07/21 03:49 BP 91/50 L 10/07/21 07:38 Pulse Ox 94 10/07/21 07:38 BMI result Body Mass Index 17.1 Appearing in no acute distress lung sounds are clear to auscultation heart regular rate rhythm, clear S1, S2 positive bowel sounds, abdomen is soft, nontender neuro patient is alert x3, no focal deficits Objective Data Active Medications Acetaminophen (Acetaminophen 325 Mg Tablet) 650 mg PO Q6H PRN PRN Reason: Pain, Mild (Pain Scale 1-3) Last Admin: 10/02/21 21:05 Dose: 650 mg Documented by: JAKILJed Dextrose (Dextrose 50 % 25 Gm/50 Ml Syringe) 25 gm IVPUSH Q15M PRN; Protocol PRN Reason: per Hypoglycemia Standing Ord. Famotidine (Famotidine 20 Mg Tablet) 20 mg PO BID PRN PRN Reason: heartburn Fentanyl (Fentanyl 25 Mcg Patch.Td72) 25 mcg TRANSDERMA Q3D [facility] Last Admin: 10/05/21 06:06 Dose: Not Given Documented by: CASEY Non-Admin Reason: pt refused, reports it makes her nauseous Glucose (Glucose Gel 15 Gm Gel..Gram.) 15 gm PO Q15M PRN; Protocol PRN Reason: per Hypoglycemia Standing Ord. Heparin Sodium (Porcine) (Heparin Sodium,Porcine 5,000 Unit/Ml Vial) 5,000 unit SUBCUT Q8H [facility] Last Admin: 10/07/21 06:10 Dose: 5,000 unit Documented by: KATARZYNA Lactated Ringer's (Lr) 1,000 mls @ 100 mls/hr IVCONT .Q10H [facility] Last Admin: 10/07/21 04:36 Dose: 100 mls/hr Documented by: KATARZYNA Insulin Human Lispro (Insulin Lispro 100 Unit/Ml 3 Ml Vial) 0 unit SUBCUT QIDACHS [facility]; Protocol Last Admin: 10/07/21 08:03 Dose: Not Given Documented by: CASEY Non-Admin Reason: No Insulin Coverage Levofloxacin (Levofloxacin 500 Mg Tablet) 500 mg PO Q24H [facility] Melatonin (Melatonin 3 Mg Tablet) 6 mg PO BEDTIME PRN PRN Reason: Insomnia Last Admin: 10/03/21 22:22 Dose: 6 mg Documented by: TRACEY Ondansetron HCl (Ondansetron Hcl 4 Mg/2 Ml Vial) 4 mg IVPUSH Q4H PRN PRN Reason: Nausea and Vomiting Last Admin: 10/07/21 00:01 Dose: 4 mg Documented by: KATARZYNA Oxycodone HCl (Oxycodone Hcl Immed Release 5 Mg Tablet) 5 mg PO Q4H PRN PRN Reason: Pain, Mild (Pain Scale 1-3) Last Admin: 10/04/21 14:47 Dose: 5 mg Documented by: NANY Senna/Docusate Sodium (Sennosides/Docusate Sodium Tablet) 2 tab PO DAILY [facility] Last Admin: 10/06/21 08:02 Dose: Not Given Documented by: CASEY Non-Admin Reason: Patient Refused Sodium Chloride (0.9 % Sodium Chloride Flush 3 Ml Syringe) 3 ml IVFLUSH QSHIFT [facility] Last Admin: 10/07/21 00:02 Dose: Not Given Documented by: KATARZYNA Non-Admin Reason: IV Running Labs CBC & Chem 7: 10/07/21 05:44 10/07/21 05:44 Labs: Laboratory Results - last 24 hr 10/06/21 10/06/21 10/06/21 11:58 16:28 19:48 MCV MCH MCHC RDW Plt Count MPV Absolute Nucleated RBC Nucleated RBC % (auto) Anion Gap Estim Creat Clear Calc Estimated GFR POC Glucose 82 108 143 H Random Glucose Calcium 10/07/21 10/07/21 10/07/21 05:44 05:44 07:38 MCV 77.9 L MCH 23.7 L MCHC 30.4 L RDW 21.4 H Plt Count 379 MPV 9.2 L Absolute Nucleated RBC 0.000 Nucleated RBC % (auto) 0.0 Anion Gap 12 Estim Creat Clear Calc 62.1 Estimated GFR > 60 POC Glucose 60 Random Glucose 60 Calcium 7.6 L Microbiology Microbiology Results: Microbiology 10/02/21 00:15 Blood Culture - Final Blood - Venous No growth after 5 days. 10/02/21 00:20 Blood Culture - Final Blood - Venous No growth after 5 days. Assessment and Plan (1) Enterovesical fistula: Status: Acute (2) UTI (urinary tract infection): Status: Acute (3) Disseminated ovarian cancer: Status: Chronic Plan 66-year-old female with a past medical history of diabetes, history of ovarian ca, hx Enterovesical Fistula; Wears diapers; has Fecal contents in urine p/w Burning/redness of Labia and Burning urination/Abd pain for couple days; noted UTI/Labial cellulits; CT abdomen showed possible Ileus; Enterovesical Fistula. Admitted for following. Hypotension. multifactorial from infection vs chronic also poor reserve Seems like low BP is her baseline, stable at this point Stop IV fluids Monitor Enterovesicular fistula Stool leaking from through urethra General surgery following, not a surgical candidate due to extensive cancer/peritoneal carcinomatosis Abd pain/ILeus. Clinically improving tolerating regular diet Supportive care.?? UTI/Labial Cellulitis, secondary to stool leaking out of the bladder from fistula?? Seen by ID, abhisheksyn stopped will continue Levaquin for 5 more days UCx growing enterobacter cloacae, enterococcus faecium Ovarian Ca Now with extensive peritoneal carcinomatosis, spread now to liver, peritoneum, bladder and pulmonary nodules?noted Seen by oncology, no longer candidate for palliative chemotherapy, recommend hospice care, family declines Iron Deficiency Anemia s/p 1 unit PRBC H/H stable Diabetes blood sugars 60-150's Insulin sliding scale moderate protein calorie malnutrition as evidenced by loss of muscle mass and subcutaneous fat, BMI 17.1 and albumin 2.2 supplements ordered DISPO plan for dc in am with VNA Discussed case with family, patient remains full code despite poor prognosis and fistula. See advance care planning note DVT prophylaxis : SQH Code status:? Full Code Attending Dr. Correa Quality Stroke Does the patient have a stroke diagnosis?: No VTE Prior VTE?: No VTE Risk Level:: Medical - moderate - high VTE Device Contraindication: Treatment Not Indicated VTE Drug Contraindication: N/A - Med Ordered
[2021-10-07 08:29] LABS: Glucose, Whole Blood 65 mg/dL (60-115)
[2021-10-07] MEDS: levoFLOXacin 500 MG TABLET PO (08:45)
[2021-10-07 08:51] LABS: Glucose, Whole Blood 105 mg/dL (60-115)
[2021-10-07] MEDS: oxyCODONE HCl Immed Release 5 MG TABLET PO (11:10)
[2021-10-07] MEDS: Metoclopramide HCl 10 MG/2 ML VIAL 5 MG IVPUSH (11:10)
[2021-10-07 11:52] LABS: Glucose, Whole Blood 62 mg/dL (60-115)
[2021-10-07 12:36] LABS: Glucose, Whole Blood 112 mg/dL (60-115)
[2021-10-07] MEDS: Midodrine HCl 2.5 MG TABLET PO ×2 (14:09→21:32)
[2021-10-07] MEDS: Lidocaine 4 % Patch ADH..PATCH 1 PATCH TRANSDERMA (14:10)
[2021-10-07 16:31] LABS: Glucose, Whole Blood 89 mg/dL (60-115)
[2021-10-07] MEDS: 0.9 % Sodium Chloride Flush 3 ML SYRINGE IVFLUSH ×2 (17:12→21:35)
[2021-10-07 20:32] LABS: Glucose, Whole Blood 133 mg/dL (60-115)
[2021-10-08 03:47] VITALS: BP 90/44; PULSE 83; RESP 15; TEMP 36.7; O2SAT 96
[2021-10-08] MEDS: Heparin Sodium,Porcine 5,000 UNIT/ML VIAL 5000 UNIT SUBCUT (06:28)
[2021-10-08] MEDS: fentaNYL 25 MCG PATCH.TD72 TRANSDERMA (06:29)
[2021-10-08 07:04] LABS: Hematocrit 32.8 % (37.0-47.0); Hemoglobin 9.9 g/dl (12.0-16.0); Mean Corpuscular HGB Conc 30.2 g/dl (31.0-35.0); Mean Corpuscular Hemoglobin 24.3 pg (27.0-33.0); Mean Corpuscular Volume 80.6 fL (80.0-98.0); Mean Platelet Volume 10.1 fL (9.4-12.3); Platelet Count 141 X10*3/uL (160-400); Red Blood Count 4.07 X10*6/uL (4.20-5.50); Red Cell Distribution Width 22.5 % (11.0-16.0); White Blood Count 9.2 X10*3/uL (4.8-10.8)
[2021-10-08 07:30] LABS: Anion Gap 13 (12-20); Blood Urea Nitrogen 8 mg/dL (9-16); Calcium 7.8 mg/dL (8.4-10.2); Carbon Dioxide 22 mmol/L (22-29); Chloride 104 mmol/L (96-108); Estimated Glomerular Filt Rate > 60; Glucose Random 91 mg/dL (60-115); Potassium 5.1 mmol/L (3.3-5.1); Sodium 134 mmol/L (135-145)
--- NOTE | 2021-10-08 07:58 | PC.NURSE ---
Skin assessment completed. patient has redness and tenderness in yancy area around vulva. Z-guard applied to area. No other skin issues noted at this time.
[2021-10-08 07:59] VITALS: BP 100/48; PULSE 91; RESP 18; TEMP 36.4; O2SAT 95
[2021-10-08 08:08] LABS: Glucose, Whole Blood 89 mg/dL (60-115)
[2021-10-08] MEDS: levoFLOXacin 500 MG TABLET PO (08:35)
[2021-10-08] MEDS: Midodrine HCl 2.5 MG TABLET PO (08:35)
[2021-10-08] MEDS: Lidocaine 4 % Patch ADH..PATCH 1 PATCH TRANSDERMA (08:35)
[2021-10-08] MEDS: 0.9 % Sodium Chloride Flush 3 ML SYRINGE IVFLUSH (08:36)
--- NOTE | 2021-10-08 10:43 | P.DS_ITS ---
DS: Providers Provider Date of Service: 10/08/21 Date of admission: 10/02/21 04:06 Primary care physician: Katalina Larson MD Consults: 10/02/21 04:09 Consult to General Surgery Routine Consulting Provider: Curry Lyn Reason for consultation: hx enterovesicular fistula. p/w abd pain; Ileus Consult to Infectious Diseases Routine Consulting Provider: Luiza Pizarro Reason for consultation: labial cellulitis; uti; hx enterovesicular fistula. 10/02/21 09:41 Consult to Hematology / Oncology Routine Consulting Provider: Iliana Duenas Reason for consultation: recurrent ovarian cancer with new fistual and hepatic lesions Has provider been notified: No Attending physician on discharge: Harish Smiley Discharging clinician: Deborah Johnson DS: Diagnosis Discharge Diagnosis (1) Enterovesical fistula: Status: Acute (2) UTI (urinary tract infection): Status: Acute (3) Disseminated ovarian cancer: Status: Chronic DS: Summary Hospital Course Hospital Course: HP as per admitting provider 66-year-old female with a past medical history of diabetes, history of ovarian ca, hx Enterovesical Fistula; Wears diapers; has Fecal contents in urine p/w Burning/redness of Labia and Burning urination/Abd pain for couple days. Patient reports that she has been having lower abdominal discomfort, burning urination, burning sensation in the vaginal area; denies any chest pain or palpitations.? Denies any fevers.? Reports that she has been passing gas.? Denies any nausea.? Reports he has been having decreased oral intake for the past couple days.?Denies any numbness tingling or focal weakness.?Review of all other systems is negative except mentioned above, ER course: For ER team patient noted to have fecal swelling in the private area, Moses catheter was placed; urinalysis abnormal consistent with UTI.? Given antibiotics.? Also had CT abdomen pelvis done which showed chronic findings along with PDS and intravesical fistula.? Admitted for further management . Hypotension. Multifactorial from infection vs chronic also poor reserve. Initially with some dizziness but now resolved. Seems like low BP is her baseline, stable at this point. Midodrine 2.5 mg daily added. Monitor BP carefully. Enterovesicular fistula. Stool leaking from through urethra. Seen and examined by general surgery not a surgical candidate due to extensive cancer/peritoneal carcinomatosis. Steming from Ovarian Ca that she has had for the last 7 years. She has had visits to [facility] as well as [facility] and apparently the recommendations have been against surgery. Now with extensive peritoneal carcinomatosis, spread now to liver, peritoneum, bladder and pulmonary nodules?noted. Seen by oncology, no longer candidate for palliative chemotherapy, recommend hospice care, family declines. She family is wishing to seek further medical opinions regarding the patients cancer. UTI/Labial Cellulitis, secondary to stool leaking out of the bladder from fistula. Seen by ID, Initally treated with zosyn. UCx growing enterobacter cloacae, enterococcus faecium sensitive to Levaquin. Complete course of abx. Iron Deficiency Anemia, s/p 1 unit PRBC, H/H stable moderate protein calorie malnutrition, as evidenced by loss of muscle mass and subcutaneous fat, BMI 17.1 and albumin 2.2, ensure supplements ordered while inpatient, may continue at home. Time Spent with Patient Time attestation: Total time spent providing and/or coordinating discharge services: Discharge coordination time: Greater than 30 minutes Quality: Stroke Does the patient have a stroke diagnosis?: No Physical Exam Vital Signs: Vital Signs: Last Vital Signs Temp 97.6 F 10/08/21 07:59 Pulse 91 10/08/21 07:59 Resp 18 10/08/21 07:59 BP 100/48 L 10/08/21 07:59 Pulse Ox 95 10/08/21 07:59 BMI result Body Mass Index 17.1 Appearing in no acute distress head is normocephalic atraumatic eyes pupils are PERRLA sclera is anicteric mouth throat mucous membranes are intact and moist neck is supple no lymphadenopathy, no JVD noted lung sounds are clear to auscultation heart regular rate rhythm, clear S1, S2 positive bowel sounds, abdomen is soft, nontender neuro patient is alert x3, no focal deficits DS: Data Data Completed and Pending Completed studies during hospitalization [Text1]: Procedures Insertion of Infusion Device into Superior Vena Cava, Percutaneous Approach (05/03/21) Labs on day of discharge: Laboratory Results - last 24 hr 10/07/21 10/07/21 10/07/21 11:20 12:30 16:16 WBC RBC Hgb Hct MCV MCH MCHC RDW Plt Count MPV Absolute Nucleated RBC Nucleated RBC % (auto) Sodium Potassium Chloride Carbon Dioxide Anion Gap BUN Creatinine Estim Creat Clear Calc Estimated GFR POC Glucose 62 112 89 Random Glucose Calcium 10/07/21 10/08/21 10/08/21 19:53 06:14 06:14 WBC 9.2 RBC 4.07 L Hgb 9.9 L Hct 32.8 L MCV 80.6 MCH 24.3 L MCHC 30.2 L RDW 22.5 H Plt Count 141 L D MPV 10.1 Absolute Nucleated RBC 0.000 Nucleated RBC % (auto) 0.0 Sodium 134 L Potassium 5.1 Chloride 104 Carbon Dioxide 22 Anion Gap 13 BUN 8 L Creatinine 0.57 Estim Creat Clear Calc 61.0 Estimated GFR > 60 POC Glucose 133 H Random Glucose 91 Calcium 7.8 L 10/08/21 07:57 WBC RBC Hgb Hct MCV MCH MCHC RDW Plt Count MPV Absolute Nucleated RBC Nucleated RBC % (auto) Sodium Potassium Chloride Carbon Dioxide Anion Gap BUN Creatinine Estim Creat Clear Calc Estimated GFR POC Glucose 89 Random Glucose Calcium Preliminary micro results at discharge 10/02/21 10:36 Urine Culture - Preliminary Urine Catheterized - Straight Catheter Enterobacter cloacae Enterococcus faecium Discharge Plan Discharge Anticipated Discharge Date/Time: 10/08/21 10:35 Patient Disposition: Home Health Service Discharge Diagnosis: Enterovesicular fistula Referrals: [facility] [Outside] - 1 Week Katalina Larson MD [Primary Care Provider] - 1 Week Discharge Medications: New lidocaine [Lidocaine Pain Relief] 4 % Adhesive Patch,Medicated 1 patch transdermal DAILY Qty: 30 0RF Protocol: Apply to: Apply to: mid abd midodrine 2.5 mg Tablet 2.5 mg PO DAILY Qty: 15 0RF levofloxacin 500 mg Tablet 500 mg PO Q24H Qty: 4 0RF oxycodone 5 mg Tablet 5 mg PO Q4H PRN (Reason: Pain, Mild (Pain Scale 1-3)) Qty: 24 0RF Continued melatonin 5 mg tablet 1 tab PO BEDTIME PRN (Reason: Insomnia) 0RF acetaminophen 325 mg tablet 3 tab PO Q6H PRN (Reason: mild pain) 0RF sennosides-docusate sodium [Senna Plus] 8.6-50 mg tablet 2 tab PO DAILY PRN (Reason: Constipation) 0RF Label Comments: PER PATIENT: DOES NOT TAKE REGULARLY famotidine 20 mg tablet 1 tab PO BID PRN (Reason: heartburn) 0RF fentanyl 25 mcg/hr patch 72 hour 1 patch topical Q3D 0RF Label Comments: per patient: removed patch yesterday. no patch currently on ondansetron 4 mg tablet,disintegrating 1 tab PO Q6H 0RF Discharge Orders: Discharge Order (Routine); Ordered 10/08/21 Ordered By: Deborah Johnson Diet: advance to usual diet Activity on Discharge: As tolerated Stand Alone Forms: Patient Portal Discharge page Care Plan Goals: pain management Health Concerns: Enterovesicular fistula Abdominal paim Plan of Treatment: continue antibiotics as prescribed Follow-up with her primary care provider within 1-2 weeks for medication refills Monitor blood pressure on midodrine Assessment: See discharge summary
--- NOTE | 2021-10-08 10:51 | MHC.CM.PN ---
PT TO DC HOME TODAY WITH RESUMPTION OF DIRECTOR ACUTE/FAMILY CARE AND NEW [facility]
[2021-10-08 11:46] VITALS: BP 110/63; PULSE 127; RESP 18; TEMP 36.5; O2SAT 98
[2021-10-08 12:05] LABS: Glucose, Whole Blood 106 mg/dL (60-115)
== END 2021-10-08 13:50 | disposition home health service (06) | DRG 699 ==
LOC: HO.ED 10-02 01:16 → HO.EDOVER 10-02 04:12 → HO.S3 10-02 15:35
PROVIDERS: Physician Assistant Medical; Admitting Provider Hospitalist; Emergency Provider Internal Medicine; PCP Pediatrics; Visit Provider Nurse Practitioner Acute Care
DX: N32.1 Vesicointestinal fistula (principal); N39.0 Urinary tract infection, site not specified; K56.7 Ileus, unspecified; C78.7 Secondary malignant neoplasm of liver and intrahepatic bile duct; C78.6 Secondary malignant neoplasm of retroperitoneum and peritoneum; C56.9 Malignant neoplasm of unspecified ovary; E44.0 Moderate protein-calorie malnutrition; Z68.1 Body mass index [BMI] 19.9 or less, adult; I95.9 Hypotension, unspecified; D50.9 Iron deficiency anemia, unspecified; E11.649 Type 2 diabetes mellitus with hypoglycemia without coma; D63.0 Anemia in neoplastic disease; N76.2 Acute vulvitis; Z20.822 Contact with and (suspected) exposure to COVID-19; Z88.0 Allergy status to penicillin; Z91.041 Radiographic dye allergy status; Z79.899 Other long term (current) drug therapy
CPT/HCPCS: 36415; 74176; 80048; 80053; 81001; 82947; 83605; 85025; 85027; 86850; 86900; 86901; 86923; 87040; 87086; 87088; 87186; 87635; 96361; 96365; 96375; 97162; 99285; 99498; J1956; J2270; J2405; J2543; J2765; J3370; P9016

== ENCOUNTER 2021-11-08 08:30 | Outpatient (REF) | payer MEDICARE, SELFPAY ==
--- NOTE | 2021-11-08 11:36 | P.PICC_ITS ---
[facility] Diagnosis: [Disseminated ovarian cancer and enterovesicular fistula] Indication: [IV fluids] Pertinent Labs: [reviewed] Technique: Following informed consent including risks, benefits and alternatives and using sterile technique including cap and mask, sterile gown, glove and drape, the [right] arm was prepped and draped in the usual sterile fashion of full barrier technique with CHG. Following completion of [place] Protocol the skin and soft tissues were anesthetized with 1% Lidocaine plain. Using ultrasound guidance, [right brachial] vein access was obtained with [address] Miller. Over an 0.018 wire through peel-away sheath, a [4 fr single lumen PASV] PICC line was positioned. Catheter length is [33 cm] internal length, [0 cm] external length, for a total trimmed length of [33 cm]. The procedure was performed in [S272]. Tip verification was performed by Daysi Gonzalez with Sherlock 3CG. Tip located in SVC. Ultrasound was used to document vein patency and for needle entry. A formal ultrasound picture and cardiac rhythm strip was recorded. [facility] [employer] has released the line for use and it is currently dressed with a StatLock, Tegaderm, and CHG disc. Verification has been performed for blood return and line patency. Arm Circumference: [22 cm] Equipment: [Pigito] Catheter Type: [4 fr single lumen PASV PICC] Lot #: [[id number]]
== END 2021-11-08 08:31 | disposition home or self-care (01) ==
LOC: HO.RADIR 08:30
PROVIDERS: PCP Pediatrics; Visit Provider Pediatrics
DX: C56.9 Malignant neoplasm of unspecified ovary (principal); N32.1 Vesicointestinal fistula
CPT/HCPCS: 36573; C1751

== ENCOUNTER 2022-01-19 11:41 | Inpatient (IN) | payer OTHER, SELFPAY ==
--- NOTE | ~2022-01-19 | CT_ITS ---
EXAMINATION: CT CHEST, ABDOMEN AND PELVIS WITHOUT CONTRAST CLINICAL INFORMATION: Fall with pain and pain in left clavicle COMPARISON: CT abdomen and pelvis 10/02/2021 images are not available for review at time of this interpretation. CT abdomen pelvis 05/03/2021 available for review. TECHNIQUE: Multidetector volumetric imaging was performed from the thoracic inlet through the pubic symphysis. Sagittal and coronal reformatted images were obtained on the technologist's workstation. Axial MIP volume rendering provided. This CT examination was performed using dose optimization techniques as appropriate, variously including the following: *Automated exposure control *Adjustment of mA and/or kV according to patient size (this includes techniques or standardized protocols for targeted exams where dose is matched to indication/reason for exam; i.e. extremities or head) *Use of iterative reconstruction technique DLP: 439 mGy-cm FINDINGS: CHEST: Lungs: 2.3 x 2 cm lobulated pulmonary nodule in the right lower lobe on series 12 image 303. Numerous relatively small pulmonary nodules seen scattered throughout all 5 lobes of both lungs, largest in the medial left lower lobe measuring approximately 1.4 x 1 cm on image 335. No pneumothorax. Central airways are clear. Symmetric biapical pleural parenchymal thickening/scarring. No airspace consolidation. Normal right basilar subsegmental atelectasis. Mediastinum: Normal heart size. No cardiomegaly. Right-sided PICC line tip terminates in the distal SVC at the cavoatrial junction. Mild coronary calcifications. No thoracic aortic aneurysm. Normal caliber central pulmonary trunk. Enlarged subcarinal lymph node with low density possible central necrosis measuring 1.6 cm in short axis fullness of micheline tissue in the right interlobar region. No other mediastinal or hilar lymphadenopathy. Pericardium/Pleura: There is no significant effusion. No pleural mass or thickening. Chest Wall/Axilla: No axillary lymphadenopathy. There are no enlarged supraclavicular lymph nodes measuring 1.6 and 1.5 cm in short axis. ABDOMEN/PELVIS: Liver, Gallbladder, Biliary Tree: Hepatic hypoattenuation compatible with underlying steatosis. Innumerable hepatic masses compatible with metastasis, one of the largest discrete lesions measuring approximate 5.5 cm in size in segment 8 on image 10 of series 6. No biliary ductal dilation. Status post cholecystectomy. Pancreas: Atrophic. No pancreatic lesion or peripancreatic inflammatory change. Spleen: Unremarkable. Adrenal Glands: Unremarkable. Kidneys and Ureters: Small 1.2 cm low-density cyst in the anterior right mid to lower pole is unchanged. No other renal lesions. Mild left hydroureteronephrosis. No significant dilation the right renal collecting system. Mild right ureterectasis. Bladder: Irregularly diffusely thick-walled containing gas and fluid. Gastrointestinal Tract: Status post prior sigmoid resection and anastomosis. Thick-walled appearance of the rectosigmoid adjacent to the level of the suture material. Patulous loop is small bowel in the lower ventral abdomen the site of a anastomotic suture. Additional suture material in the right lower quadrant. No dilated bowel loops. No intra-abdominal free air. Trace free fluid in the right paracolic gutter. Approximately 2 x 1.6 cm nodule adjacent to the proximal ascending colon/cecum on image 54 suspicious for peritoneal metastasis. Abdominal Wall: Mild diffuse body wall edema. Midline incision. Nodular thickening of the lower incision in the pelvis with small adjacent subcutaneous nodules suspicious for malignancy. There is lobulated soft tissue extending from the ventral surface of the bladder and multiple adjacent bowel loops in the ventral pelvis through the ventral abdominal wall suspicious for malignancy/tumor. Lymphovascular Structures: Lymph nodes: No flow. Enlarged bilateral inguinal lymph nodes measuring approximately 1.3 and 1.4 cm in short axis. Para-aortic retroperitoneal lymphadenopathy, largest approximately 1.7 cm in size on series 6 image 28. Mesenteric lymphadenopathy with largest node or conglomerate nodes measuring 1.1 cm on series 6 image 37. Vascular: Moderate vascular calcifications. No abdominal aortic aneurysm. Pelvic Viscera: Status post hysterectomy. There is 2.9 x 2.5 cm low-density soft tissue mass along the right margin of the vagina on image 71 suspicious for tumor. Perivesicular presacral edema/fat stranding. OSSEOUS STRUCTURES: Mild sclerosis of the lateral 8 and ninth ribs compatible with remote healed fractures are small sclerotic lesions. No other suspicious osseous lesion. Subtle linear lucency and cortical step-off obliquely through the manubrium suspicious for nondisplaced fracture. Correlate with pain referable to this location on exam. No additional acute fracture identified. CT/CT abdomen pelvis wo con IMPRESSION: 1. Subtle lucency and cortical step-off in the manubrium suspicious for nondisplaced manubrial fracture. Correlate with clinical tenderness on exam. No other acute fracture identified. 2. Findings compatible with extensive metastatic malignancy with numerous bilateral pulmonary nodules including a dominant nodule in the right lower lobe, extensive hepatic metastasis, micheline metastasis above and below the diaphragm and left supraclavicular chain, suspected peritoneal metastasis and ill-defined soft tissue masses in the pelvis and extending through the ventral lower abdominal wall incision site. Correlate with known malignancy. 3. Findings compatible with enterovesicular fistula. 4. Mild left hydroureteronephrosis and mild right ureterectasis.
--- NOTE | ~2022-01-19 | CT_ITS ---
EXAMINATION: HEAD CT WITHOUT CONTRAST CERVICAL SPINE CT WITHOUT CONTRAST CLINICAL INFORMATION: Fall COMPARISON: CT head 12/21/2014 TECHNIQUE: Contiguous axial imaging of the head was performed without the administration of IV contrast. Axial multidetector volumetric images were also performed through the cervical spine without contrast. Multiplanar reconstructed images in coronal and sagittal orientations were submitted. DOSE: 1063 mGy-cm FINDINGS: HEAD: There are areas of subcortical increased densities especially in the superior aspect of the imaged brain, likely related to motion artifact/beam hardening artifact, limiting evaluation. In the nonobscured portion of the brain, there is no evidence of acute intracranial hemorrhage or territorial infarction. No abnormal mass-effect or midline shift. No extra-axial fluid collections. Dowell to white matter differentiation is well preserved. The sulci and ventricles appear age appropriate. No acute calvarial fracture. The sinuses and mastoid air cells are clear. CERVICAL SPINE: Cervical spondylosis present. This includes multilevel disc degenerative changes, with more prominent changes of moderate disc degeneration at C5-C6, C6-C7, with anterior osteophytes. There are degenerative changes at the articulation of the dens and the anterior arch of C1. Craniocervical and atlantoaxial articulations are maintained. Vertebral body heights are maintained. No acute fracture is identified. Nonunited posterior arch of C1, appearing chronic/developmental. No significant prevertebral soft tissue swelling. No suspicious thyroid findings. Prominent airspace opacities in the lung apices bilaterally, could reflect pleuroparenchymal scarring.. CT/CT cervical spine wo con IMPRESSION: 1. Study limited by motion artifact/beam hardening artifact with resulting subcortical densities in the superior aspect of the brain. Repeat CT scan for further evaluation as clinically warranted. 2. In the nonobscured areas of the brain, no acute intracranial hemorrhage or edematous territorial infarction is seen. 3. No CT evidence of acute cervical spine fracture. 4. Cervical spondylosis. 5. Additional findings and details as above.
[2022-01-19 11:52] VITALS: BP 106/54; BP 112/78; PULSE 107; RESP 18; TEMP 36.7; O2SAT 100; O2SAT 97; BMI 16.2
--- NOTE | 2022-01-19 12:14 | ECG_ITS ---
Test Reason : CP Blood Pressure : / mmHG Vent. Rate : 099 BPM Atrial Rate : 099 BPM P-R Int : 094 ms QRS Dur : 062 ms QT Int : 344 ms P-R-T Axes : 085 -35 -01 degrees QTc Int : 441 ms Sinus rhythm with short OK with Premature supraventricular complexes Left axis deviation Abnormal ECG When compared with ECG of 23-SEP-2021 19:50, Premature supraventricular complexes are now Present Nonspecific T wave abnormality now evident in Inferior leads Referred By: Miriam Young Electronically Signed By:GHADA PENA MD
--- NOTE | 2022-01-19 13:40 | ED_ITS ---
HPI - Fall General Chief Complaint: Fall Stated Complaint: FALL W/STERNUM PAIN PER EMS Time Seen by Provider: 01/19/22 12:13 Source: patient and family Mode of arrival: EMS History of Present Illness HPI Narrative: 66F brought in by EMS for persistent clavicle/sternal pain after a fall last night when she was getting up off of the toilet and hit her chest. She denies head strike or LOC and currently has metastatic ovarian ca. Related Data Home Medications Medication Instructions Recorded Confirmed melatonin 5 mg tablet 1 tab PO BEDTIME PRN 05/03/21 10/02/21 acetaminophen 325 mg tablet 3 tab PO Q6H PRN 10/02/21 10/02/21 famotidine 20 mg tablet 1 tab PO BID PRN 10/02/21 10/02/21 fentanyl 25 mcg/hr transdermal 1 patch TOPICAL Q3D 10/02/21 10/02/21 patch ondansetron 4 mg disintegrating 1 tab PO Q6H 10/02/21 10/02/21 tablet sennosides 8.6 mg-docusate sodium 2 tab PO DAILY PRN 10/02/21 10/02/21 50 mg tablet (Senna Plus) Previous Rx's Medication Instructions Recorded levofloxacin 500 mg tablet 500 mg PO Q24H #4 tab 10/08/21 lidocaine 4 % topical patch 1 patch TRANSDERMAL DAILY #30 ea 10/08/21 (Lidocaine Pain Relief) midodrine 2.5 mg tablet 2.5 mg PO DAILY #15 tab 10/08/21 oxycodone 5 mg tablet 5 mg PO Q4H PRN #24 tab 10/08/21 Allergies Allergy/AdvReac Type Severity Reaction Status Date / Time Iodinated Contrast Media Allergy Severe DIFF.BREATH Verified 06/11/21 13:16 [IV Dye, Iodine Containing] ING Penicillins AdvReac Mild PASSED OUT Verified 06/11/21 13:16 Environmental Allergy Mild ITCHY Uncoded 05/04/20 16:02 EYES/RUNNY NOSE DYE Allergy Unknown Unknown Uncoded 05/03/21 16:31 PENICILLIN G Allergy Unknown Unknown Uncoded 05/03/21 16:31 Review of Systems Review of Systems: Pertinent positives and negativesas per HPI and 10pt ROS is otherwise negative. PMFSH Past Medical History Source: nursing notes reviewed Medical History Acute UTI Arthritis Bacteremia Diabetes Enterovesical fistula On total parenteral nutrition Osteoporosis Pelvic cancer Rectovaginal fistula Surgical History History of colon resection Hx of cholecystectomy Social History Social History Household Members: Spouse Housing: House Do you presently have visiting nurse or other home services: Yes Alcohol intake: never Patient Tobacco Use Status: Never used Tobacco Advance Directives: No Advance Directives Information Provided: No Advance Directives Date on File: 05/04/21 service: No Current occupational status: retired Physical Exam Vital Signs: Vital Signs: Last Vital Signs Temp 99.6 F 01/19/22 19:34 Pulse 102 H 01/19/22 19:34 Resp 16 01/19/22 19:34 BP 110/47 L 01/19/22 19:34 Pulse Ox 95 01/19/22 19:34 BMI result Body Mass Index 16.2 VS Reviewed. HEENT: atraumatic, PERRLA, EOMI NECK: no midline cervical spine ttp or step-offs PULM: CTAB CHEST WALL: sternal ttp as well as left prox clavicle without obvious deformity. CVS: RRR, pulses palpable ABD: not distended, masses palpated and patient ttp diffusely : Significant excoriation along labia and introitus EXT: no deformities noted GEN: cachectic Course Course Course Narrative: 66F with history and clinical presentation c/w likely fracture. Pt provided with pain medication and on review of all imaging there is a lucency suspicious for non-displaced manubrium fracture. Abd/pelvis demonstrate findings c/w current metastatic ovarian ca. I discussed the case with the inpatient hospitalist who accepts admission for pain control. MDM - Fall Lab Data Result diagrams: 01/19/22 14:08 01/19/22 14:08 Labs: Lab Results 01/19/22 01/19/22 01/19/22 Range/Units 14:08 14:08 14:08 WBC 10.5 (4.8-10.8) X10*3/uL RBC 3.69 L (4.20-5.50) X10*6/uL Hgb 10.5 L (12.0-16.0) g/dl Hct 33.0 L (37.0-47.0) % MCV 89.4 (80.0-98.0) fL MCH 28.5 (27.0-33.0) pg MCHC 31.8 (31.0-35.0) g/dl RDW 19.9 H (11.0-16.0) % Plt Count 405 H D (160-400) X10*3/uL MPV 9.0 L (9.4-12.3) fL Immature Gran % (Auto) 0.6 H (0.0-0.4) % Neut % (Auto) 77.5 H (45-73) % Lymph % (Auto) 14.5 L (20-40) % [place] % (Auto) 6.8 (2-11) % Eos % (Auto) 0.3 (0-4) % Baso % (Auto) 0.3 (0-2) % Lymph # (Auto) 1.5 (1.2-4.9) X10*3/uL [place] # (Auto) 0.7 (0.1-1.2) X10*3/uL Eos # (Auto) 0.0 (0.0-0.4) X10*3/uL Baso # (Auto) 0.0 (0.0-0.2) X10*3/uL Abs Immat Gran (auto) 0.06 H (0.00-0.03) X10*3/uL Absolute Neuts (auto) 8.1 (2.0-8.3) x10*3/uL Absolute Nucleated RBC 0.000 (0.0-0.012) X10*3/uL Nucleated RBC % (auto) 0.0 (0.0-0.2) /100WBC PT 13.7 H (9.9-13.0) SEC INR 1.2 H (0.9-1.1) Sodium 135 (135-145) mmol/L Potassium 4.2 (3.3-5.1) mmol/L Chloride 102 (96-108) mmol/L Carbon Dioxide 26 (22-29) mmol/L Anion Gap 11 L (12-20) BUN 9 (9-16) mg/dL Creatinine 0.67 (0.5-1.4) mg/dL Estim Creat Clear Calc 49.0 Estimated GFR > 60 Random Glucose 72 (60-115) mg/dL Lactic Acid (0.5-2.0) mmol/L Calcium 7.5 L (8.4-10.2) mg/dL Total Bilirubin 0.3 (0.0-1.0) mg/dL AST 73 H (5-31) U/L ALT 20 (0-31) U/L Alkaline Phosphatase 1441 H D (39-117) U/L Total Protein 7.6 (6.5-8.0) g/dL Albumin 1.9 L (3.5-5.0) g/dL 01/19/22 Range/Units 14:08 WBC (4.8-10.8) X10*3/uL RBC (4.20-5.50) X10*6/uL Hgb (12.0-16.0) g/dl Hct (37.0-47.0) % MCV (80.0-98.0) fL MCH (27.0-33.0) pg MCHC (31.0-35.0) g/dl RDW (11.0-16.0) % Plt Count (160-400) X10*3/uL MPV (9.4-12.3) fL Immature Gran % (Auto) (0.0-0.4) % Neut % (Auto) (45-73) % Lymph % (Auto) (20-40) % [place] % (Auto) (2-11) % Eos % (Auto) (0-4) % Baso % (Auto) (0-2) % Lymph # (Auto) (1.2-4.9) X10*3/uL [place] # (Auto) (0.1-1.2) X10*3/uL Eos # (Auto) (0.0-0.4) X10*3/uL Baso # (Auto) (0.0-0.2) X10*3/uL Abs Immat Gran (auto) (0.00-0.03) X10*3/uL Absolute Neuts (auto) (2.0-8.3) x10*3/uL Absolute Nucleated RBC (0.0-0.012) X10*3/uL Nucleated RBC % (auto) (0.0-0.2) /100WBC PT (9.9-13.0) SEC INR (0.9-1.1) Sodium (135-145) mmol/L Potassium (3.3-5.1) mmol/L Chloride (96-108) mmol/L Carbon Dioxide (22-29) mmol/L Anion Gap (12-20) BUN (9-16) mg/dL Creatinine (0.5-1.4) mg/dL Estim Creat Clear Calc Estimated GFR Random Glucose (60-115) mg/dL Lactic Acid 2.7 H* (0.5-2.0) mmol/L Calcium (8.4-10.2) mg/dL Total Bilirubin (0.0-1.0) mg/dL AST (5-31) U/L ALT (0-31) U/L Alkaline Phosphatase (39-117) U/L Total Protein (6.5-8.0) g/dL Albumin (3.5-5.0) g/dL ECG Data Attestation: I personally reviewed and interpreted this ECG as follows: Prior ECG tracings: available for review Interpretation: Sinus rhythm with short NM (consistent with prior EKG), HR-99, no STEMI, NM/QRS/QTC are within normal limits. Discharge Plan Discharge Clinical Impression: Fall, Disseminated ovarian cancer, Enterovesical fistula, Closed fracture of manubrium Patient Disposition: Admitted As Inpatient Prescriptions: No Action melatonin 5 mg tablet 1 tab PO BEDTIME PRN (Reason: Insomnia) 0RF acetaminophen 325 mg tablet 3 tab PO Q6H PRN (Reason: mild pain) 0RF sennosides-docusate sodium [Senna Plus] 8.6-50 mg tablet 2 tab PO DAILY PRN (Reason: Constipation) 0RF Label Comments: PER PATIENT: DOES NOT TAKE REGULARLY famotidine 20 mg tablet 1 tab PO BID PRN (Reason: heartburn) 0RF fentanyl 25 mcg/hr patch 72 hour 1 patch topical Q3D 0RF Label Comments: per patient: removed patch yesterday. no patch currently on ondansetron 4 mg tablet,disintegrating 1 tab PO Q6H 0RF lidocaine [Lidocaine Pain Relief] 4 % Adhesive Patch,Medicated 1 patch transdermal DAILY Qty: 30 0RF Protocol: Apply to: Apply to: mid abd midodrine 2.5 mg Tablet 2.5 mg PO DAILY Qty: 15 0RF levofloxacin 500 mg Tablet 500 mg PO Q24H Qty: 4 0RF oxycodone 5 mg Tablet 5 mg PO Q4H PRN (Reason: Pain, Mild (Pain Scale 1-3)) Qty: 24 0RF
[2022-01-19 14:00] VITALS: BP 116/62; PULSE 98; RESP 18; O2SAT 100
[2022-01-19] MEDS: fentaNYL citrate/PF 100 MCG/2 ML VIAL 25 MCG IVPUSH ×2 (14:07→18:40)
[2022-01-19] MEDS: 0.9 % Sodium Chloride 1,000 ML 999 ML IV (14:09)
[2022-01-19 14:15] LABS: MANUAL DIFF FLAG NO
[2022-01-19 14:17] LABS: Basophils Percent Auto 0.3 % (0-2); Eosinophils Percent Auto 0.3 % (0-4); Hemoglobin 10.5 g/dl (12.0-16.0); Imm Gran Abs Auto 0.06 X10*3/uL (0.00-0.03); Imm Gran Pct Auto 0.6 % (0.0-0.4); Lymphocytes Absolute Auto 1.5 X10*3/uL (1.2-4.9); Lymphocytes Percent Auto 14.5 % (20-40); Mean Corpuscular HGB Conc 31.8 g/dl (31.0-35.0); Mean Corpuscular Hemoglobin 28.5 pg (27.0-33.0); Mean Corpuscular Volume 89.4 fL (80.0-98.0); Monocytes Absolute Auto 0.7 X10*3/uL (0.1-1.2); Monocytes Percent Auto 6.8 % (2-11); Neutrophils Absolute Auto 8.1 x10*3/uL (2.0-8.3); Neutrophils Percent Auto 77.5 % (45-73); Platelet Count 405 X10*3/uL (160-400); Red Blood Count 3.69 X10*6/uL (4.20-5.50); Red Cell Distribution Width 19.9 % (11.0-16.0); White Blood Count 10.5 X10*3/uL (4.8-10.8)
[2022-01-19 14:21] LABS: INTERNATIONAL NORM RATIO 1.2 (0.9-1.1); Prothrombin Time 13.7 SEC (9.9-13.0)
[2022-01-19 14:28] LABS: Lactic Acid 2.7 mmol/L (0.5-2.0)
--- NOTE | 2022-01-19 14:36 | PC.NURSE ---
Inc care provided, cream applied to vaginal area. Call mcadams within reach. Will continue to monitor.
[2022-01-19 15:05] LABS: Alanine Aminotransferase 20 U/L (0-31); Albumin Level 1.9 g/dL (3.5-5.0); Alkaline Phosphatase 1441 U/L (39-117); Anion Gap 11 (12-20); Aspartate Amino Transferase 73 U/L (5-31); Bilirubin Total 0.3 mg/dL (0.0-1.0); Blood Urea Nitrogen 9 mg/dL (9-16); Calcium 7.5 mg/dL (8.4-10.2); Carbon Dioxide 26 mmol/L (22-29); Chloride 102 mmol/L (96-108); Estimated Glomerular Filt Rate > 60; Glucose Random 72 mg/dL (60-115); Potassium 4.2 mmol/L (3.3-5.1); Sodium 135 mmol/L (135-145); Total Protein 7.6 g/dL (6.5-8.0)
[2022-01-19 16:13] LABS: Reflex Lactate? Lactic Acid Added
[2022-01-19 19:34] VITALS: BP 110/47; PULSE 102; RESP 16; TEMP 37.6; O2SAT 95
--- NOTE | 2022-01-19 20:18 | PHA.MEDREC ---
Pharmacy Consult ? Medication Reconciliation Pharmacy has completed the medication reconciliation.
[2022-01-19 20:27] LABS: COVID-19 Test Negative (Negative)
[2022-01-19 20:44] LABS: ~Lactic Acid-LAB USE ONLY 3.9 mmol/L (0.5-2.0)
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
[2022-01-19] MEDS: ondansetron HCL 4 MG/2 ML VIAL IVPUSH (21:41)
[2022-01-19] MEDS: Heparin Sodium,Porcine 5,000 UNIT/ML VIAL 5000 UNIT SUBCUT (21:41)
[2022-01-19 21:49] LABS: Reflex Lactate? 2 Y
[2022-01-19] MEDS: cefTRIAXone sodium 1 GM in 0.9 % Sodium Chloride 50 ML IV (22:01)
[2022-01-19 22:20] LABS: Appearance Urine CLOUDY; Color Urine YELLOW; Glucose Urine UA NEG (NEG); Leukocyte Esterase Urine 3+ (NEG); Nitrite Urine POS (NEG); PH 7.5 (5.0-8.0); UACC Culture Trigger YES; Urine Blood 3+ (NEG); Urine Ketones NEG (NEG); Urine Protein 1+ MG/DL (NEG-TRACE)
[2022-01-19] MEDS: 0.9 % Sodium Chloride 1,000 ML 100 ML IVCONT (22:46)
[2022-01-19 22:49] LABS: Bacteria Urine 3+ /LPF; Mucus Urine 2+ /LPF; Squamous Epithelial Cell Urine 2+ /LPF; WBC Clumps Urine NOTED
[2022-01-19 22:51] LABS: ~Lactic Acid-LAB USE ONLY 2.9 mmol/L (0.5-2.0)
[2022-01-19] MEDS: traZODone HCL 50 MG TABLET PO (23:10)
[2022-01-19] MEDS: oxyCODONE HCl Immed Release 5 MG TABLET 10 MG PO (23:10)
[2022-01-19 23:21] VITALS: BP 123/69; RESP 18; TEMP 36.8; O2SAT 97
[2022-01-20] VITALS (7 sets, daily range): BP systolic 99–122; BP diastolic 50–56; PULSE 99–129; RESP 18–20; TEMP 36.1–37.4; O2SAT 96–99; BMI 18.1
[2022-01-20] MEDS: HYDROmorphone HCl 1 MG/ML SYRINGE 0.5 MG IVPUSH ×3 (04:04→20:23)
[2022-01-20] MEDS: oxyCODONE HCl Immed Release 5 MG TABLET 10 MG PO ×3 (05:39→22:11)
--- NOTE | 2022-01-20 05:58 | PC.NURSE ---
Assumed care at around 4am, pt came from the ED to rm [id number] via stretcher, pt was slid to bed, pt was moaning for pain upon arrival but settled when in bed, care rendered, noted also with incontinence of urine and stool mixed together, perineal care rendered, seen with red and raw area on the perineal area, protective cream applied, has PICC line 1 lumen on the right UE with IVF NSS going at 100 ml/hr, cachectic, weak and frail, fentanyl patch seen on the left shoulder, callbell in reach, needs met, bed alarm on.
[2022-01-20] MEDS: levoFLOXacin/D5W 750 MG/150 ML PIGGYBACK 100 MG IV (06:29)
[2022-01-20 08:45] LABS: MANUAL DIFF FLAG NO
[2022-01-20 08:48] LABS: Basophils Percent Auto 0.3 % (0-2); Eosinophils Percent Auto 0.3 % (0-4); Hematocrit 24.2 % (37.0-47.0); Hemoglobin 7.8 g/dl (12.0-16.0); Imm Gran Abs Auto 0.06 X10*3/uL (0.00-0.03); Imm Gran Pct Auto 0.6 % (0.0-0.4); Lymphocytes Absolute Auto 1.8 X10*3/uL (1.2-4.9); Lymphocytes Percent Auto 17.7 % (20-40); Mean Corpuscular HGB Conc 32.2 g/dl (31.0-35.0); Mean Corpuscular Hemoglobin 28.5 pg (27.0-33.0); Mean Corpuscular Volume 88.3 fL (80.0-98.0); Mean Platelet Volume 9.4 fL (9.4-12.3); Monocytes Absolute Auto 1.3 X10*3/uL (0.1-1.2); Monocytes Percent Auto 12.2 % (2-11); Neutrophils Percent Auto 68.9 % (45-73); Platelet Count 344 X10*3/uL (160-400); Red Blood Count 2.74 X10*6/uL (4.20-5.50); Red Cell Distribution Width 20.2 % (11.0-16.0); White Blood Count 10.2 X10*3/uL (4.8-10.8)
[2022-01-20 09:21] LABS: Anion Gap 9 (12-20); Blood Urea Nitrogen 8 mg/dL (9-16); Calcium 6.8 mg/dL (8.4-10.2); Carbon Dioxide 25 mmol/L (22-29); Chloride 103 mmol/L (96-108); Creatinine Clr Calc Pharmacy 61.1; Estimated Glomerular Filt Rate > 60; Glucose Random 57 mg/dL (60-115); Sodium 133 mmol/L (135-145)
[2022-01-20] MEDS: Heparin Sodium,Porcine 5,000 UNIT/ML VIAL 5000 UNIT SUBCUT ×2 (09:47→22:13)
[2022-01-20] MEDS: fentaNYL 25 MCG PATCH.TD72 TRANSDERMA (09:47)
[2022-01-20] MEDS: ondansetron HCL 4 MG/2 ML VIAL IVPUSH (09:48)
[2022-01-20] MEDS: 0.9 % Sodium Chloride 1,000 ML 100 ML IVCONT ×3 (09:49→20:29)
[2022-01-20] MEDS: Nystatin Cream 15 GM TUBE 1 APPL TOPICAL ×2 (10:18→22:13)
[2022-01-20] MEDS: Mineral Oil/Petrolatum,White 106 GM Tube 1 APPL TOPICAL ×2 (10:18→22:12)
[2022-01-20] MEDS: Fluticasone Propionate Nasal 16 GM SPRAY 1 SPRAY NOSTRIL-B (10:18)
[2022-01-20 10:20] LABS: Estimated Average Glucose 97 mg/dL
[2022-01-20 12:40] LABS: Glucose, Whole Blood 61 mg/dL (60-115)
--- NOTE | 2022-01-20 13:02 | MHC.CM.PN ---
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 PT DENIES HAVING HAD ANY COVID VACCINE, PT EDUCATED ON AND DECLINES HCP AND VERIFIES PCP CHARU PAUL. CM DISCUSSED POSSIBLE STR W/PT AND FAMILY AND THEY PREFER HOME W/RESUMP OF SERVICES NOT STR, PT MAY NEED BLS TRANSPORT HOME
[2022-01-20 14:10] LABS: Hematocrit 30.3 % (37.0-47.0); Hemoglobin 9.6 g/dl (12.0-16.0); Mean Corpuscular HGB Conc 31.7 g/dl (31.0-35.0); Mean Corpuscular Hemoglobin 28.9 pg (27.0-33.0); Mean Corpuscular Volume 91.3 fL (80.0-98.0); Mean Platelet Volume 10.3 fL (9.4-12.3); PLT CLUMP 1; Red Blood Count 3.32 X10*6/uL (4.20-5.50)
[2022-01-20 14:30] LABS: Platelet Count 291 X10*3/uL (160-400); White Blood Count 9.6 X10*3/uL (4.8-10.8)
[2022-01-20] MEDS: Lidocaine 4 % Patch ADH..PATCH 1 PATCH TRANSDERMA (14:37)
--- NOTE | 2022-01-20 15:18 | P.PNIM_ITS ---
Subjective Subjective Date of Service: 01/20/22 Interval History: Seen and examined this morning Follow-up for fall, manubrium fracture, UTI, enterovesicular fistula having pain at sternum, left shoulder Review of Systems Review of Systems: Yes all other systems are reviewed and are negative Constitutional Constitutional: Denies chills and Denies fever(s) Cardiovascular Cardiovascular: Denies chest pain, Denies palpitations and Denies dyspnea Respiratory Respiratory: Denies cough and Denies dyspnea Gastrointestinal Gastrointestinal: Denies abdominal pain and Denies diarrhea Endocrine Endocrine: Denies palpitations Physical Exam Vital Signs: Vital Signs: Last Vital Signs Temp 98.6 F 01/20/22 15:13 Pulse 105 H 01/20/22 15:13 Resp 18 01/20/22 15:13 BP 112/54 L 01/20/22 15:13 Pulse Ox 98 01/20/22 15:13 BMI result Body Mass Index 18.1 Const: General: cooperative, alert and awake Nutritional Appearance: thin and underweight Orientation/consciousness: patient oriented x3 Chest: Other: tender to palpation upper sternal area Resp: Effort & Inspection: normal respiratory effort and able to speak in complete sentences Cardio: Rate: regular rate Heart sounds: S1 normal heart sound present and S2 normal heart sound present GI: Inspection: No distended Palpation (GI): Soft to palpation Neuro: General: patient oriented x3 Extrem: Other: b/l leg edema; LUE ROM limited by pain Objective Data Active Medications Acetaminophen (Acetaminophen 325 Mg Tablet) 650 mg PO Q6H PRN PRN Reason: Pain, Mild (Pain Scale 1-3) Dextrose (Dextrose 50 % 25 Gm/50 Ml Syringe) 25 gm IVPUSH Q15M PRN; Protocol PRN Reason: per Hypoglycemia Standing Ord. Docusate Sodium (Docusate Sodium 100 Mg Capsule) 100 mg PO DAILY PRN PRN Reason: Constipation Fentanyl (Fentanyl 25 Mcg Patch.Td72) 25 mcg TRANSDERMA Q3D [facility] Last Admin: 01/20/22 09:47 Dose: 25 mcg Documented by: NANY Fluticasone Propionate (Fluticasone Propionate Nasal 16 Gm [place]) 1 spray NOSTRIL-B DAILY [facility] Last Admin: 01/20/22 10:18 Dose: 1 spray Documented by: NANY Glucose (Glucose Gel 15 Gm Gel..Gram.) 15 gm PO Q15M PRN; Protocol PRN Reason: per Hypoglycemia Standing Ord. Heparin Sodium (Porcine) (Heparin Sodium,Porcine 5,000 Unit/Ml Vial) 5,000 unit SUBCUT Q12H [facility] Last Admin: 01/20/22 09:47 Dose: 5,000 unit Documented by: NANY Hydromorphone HCl (Hydromorphone Hcl 1 Mg/Ml Syringe) 0.5 mg IVPUSH Q4H PRN; Protocol PRN Reason: Pain, Severe (Pain Scale 7-10) Last Admin: 01/20/22 04:04 Dose: 0.5 mg Documented by: JELLY Sodium Chloride (Ns) 1,000 mls @ 100 mls/hr IVCONT .Q10H [facility] Last Admin: 01/20/22 09:49 Dose: 100 mls/hr Documented by: NANY Levofloxacin (Levaquin) 750 mg in 150 mls @ 100 mls/hr IV Q24H [facility] Last Infusion: 01/20/22 09:01 Dose: 0 mls/hr Documented by: NANY Lidocaine (Lidocaine 4 % Patch Adh..Patch) 1 patch TRANSDERMA DAILY [facility]; Protocol Last Admin: 01/20/22 14:37 Dose: 1 patch Documented by: NNAY Melatonin (Melatonin 3 Mg Tablet) 6 mg PO BEDTIME PRN PRN Reason: Insomnia Multi-Ingred Cream/Lotion/Oil/Oint (Mineral Oil/Petrolatum,White 106 Gm Tube) 1 appl TOPICAL BID MARY; Protocol Last Admin: 01/20/22 10:18 Dose: 1 appl Documented by: NANY Multivitamins/Vitamin C (Multivitamin Tablet) 1 tab PO DAILY [facility] Last Admin: 01/20/22 10:02 Dose: Not Given Documented by: NANY Non-Admin Reason: pt difficulties with po Nystatin (Nystatin Cream 15 Gm Tube) 1 appl TOPICAL BID MARY; Protocol Last Admin: 01/20/22 10:18 Dose: 1 appl Documented by: NANY Ondansetron HCl (Ondansetron Hcl 4 Mg/2 Ml Vial) 4 mg IVPUSH Q8H PRN PRN Reason: Nausea and Vomiting Last Admin: 01/20/22 09:48 Dose: 4 mg Documented by: NANY Oxybutynin Chloride (Oxybutynin Chloride Er 5 Mg Tab.Er.24) 10 mg PO DAILY [facility] Last Admin: 01/20/22 09:47 Dose: 10 mg Documented by: NANY Oxycodone HCl (Oxycodone Hcl Immed Release 5 Mg Tablet) 10 mg PO Q8H [facility] Last Admin: 01/20/22 13:18 Dose: 10 mg Documented by: NANY Pharmacy Consult (Consult Rx Perform Med Rec) 1 each MISCELLANE ONCE PRN PRN Reason: Consult order Senna/Docusate Sodium (Sennosides/Docusate Sodium Tablet) 2 tab PO DAILY PRN PRN Reason: Constipation Sodium Chloride (0.9 % Sodium Chloride Flush 3 Ml Syringe) 3 ml IVFLUSH QSHIFT [facility] Last Admin: 01/20/22 08:13 Dose: Not Given Documented by: NANY Non-Admin Reason: IV Running Thiamine HCl (Thiamine Hcl 100 Mg Tablet) 100 mg PO DAILY [facility] Last Admin: 01/20/22 10:01 Dose: Not Given Documented by: NANY Non-Admin Reason: difficulty with po Trazodone HCl (Trazodone Hcl 50 Mg Tablet) 50 mg PO BEDTIME [facility] Last Admin: 01/19/22 23:10 Dose: 50 mg Documented by: JELLY Labs CBC & Chem 7: 01/20/22 13:35 01/20/22 08:26 Labs: Laboratory Results - last 24 hr 01/19/22 01/19/22 01/19/22 19:45 19:45 21:53 MCV MCH MCHC RDW Plt Count MPV Immature Gran % (Auto) Neut % (Auto) Lymph % (Auto) [place] % (Auto) Eos % (Auto) Baso % (Auto) Lymph # (Auto) [place] # (Auto) Eos # (Auto) Baso # (Auto) Abs Immat Gran (auto) Absolute Neuts (auto) Absolute Nucleated RBC Nucleated RBC % (auto) Anion Gap Estim Creat Clear Calc Estimated GFR POC Glucose Random Glucose Estimat Average Glucose Hemoglobin A1c % Lactic Acid F/U @ 2Hr 3.9 H* Lactic Acid F/U @ 4Hr Calcium Urine Color YELLOW Urine Appearance CLOUDY Urine pH 7.5 Ur Specific [place] 1.010 Urine Protein 1+ H Urine Glucose (UA) NEG Urine Ketones NEG Urine Blood 3+ H Urine Nitrite POS H Ur Leukocyte Esterase 3+ H Urine RBC 10-14 H Urine WBC 10-14 H Urine WBC Clumps NOTED Ur Squamous Epith Cells 2+ Urine Bacteria 3+ Urine Mucus 2+ Urine Yeast TRACE COVID-19 ([facility]) Negative COVID-19 Clin Com See Note 01/19/22 01/20/22 01/20/22 22:20 08:26 08:26 MCV 88.3 MCH 28.5 MCHC 32.2 RDW 20.2 H Plt Count 344 MPV 9.4 Immature Gran % (Auto) 0.6 H Neut % (Auto) 68.9 Lymph % (Auto) 17.7 L [place] % (Auto) 12.2 H Eos % (Auto) 0.3 Baso % (Auto) 0.3 Lymph # (Auto) 1.8 [place] # (Auto) 1.3 H Eos # (Auto) 0.0 Baso # (Auto) 0.0 Abs Immat Gran (auto) 0.06 H Absolute Neuts (auto) 7.0 Absolute Nucleated RBC 0.000 Nucleated RBC % (auto) 0.0 Anion Gap 9 L Estim Creat Clear Calc 61.1 Estimated GFR > 60 POC Glucose Random Glucose 57 L* Estimat Average Glucose Hemoglobin A1c % Lactic Acid F/U @ 2Hr Lactic Acid F/U @ 4Hr 2.9 H* Calcium 6.8 L D Urine Color Urine Appearance Urine pH Ur Specific [place] Urine Protein Urine Glucose (UA) Urine Ketones Urine Blood Urine Nitrite Ur Leukocyte Esterase Urine RBC Urine WBC Urine WBC Clumps Ur Squamous Epith Cells Urine Bacteria Urine Mucus Urine Yeast COVID-19 ([facility]) COVID-19 Clin Com 01/20/22 01/20/22 01/20/22 08:26 12:31 13:35 MCV 91.3 MCH 28.9 MCHC 31.7 RDW 20.0 H Plt Count 291 MPV 10.3 Immature Gran % (Auto) Neut % (Auto) Lymph % (Auto) [place] % (Auto) Eos % (Auto) Baso % (Auto) Lymph # (Auto) [place] # (Auto) Eos # (Auto) Baso # (Auto) Abs Immat Gran (auto) Absolute Neuts (auto) Absolute Nucleated RBC 0.000 Nucleated RBC % (auto) 0.0 Anion Gap Estim Creat Clear Calc Estimated GFR POC Glucose 61 Random Glucose Estimat Average Glucose 97 Hemoglobin A1c % 5.0 Lactic Acid F/U @ 2Hr Lactic Acid F/U @ 4Hr Calcium Urine Color Urine Appearance Urine pH Ur Specific [place] Urine Protein Urine Glucose (UA) Urine Ketones Urine Blood Urine Nitrite Ur Leukocyte Esterase Urine RBC Urine WBC Urine WBC Clumps Ur Squamous Epith Cells Urine Bacteria Urine Mucus Urine Yeast COVID-19 ([facility]) COVID-19 Clin Com Microbiology Microbiology Results: Microbiology 01/19/22 21:53 Urine Culture - Preliminary Urine clean catch - Urine antoine top Culture too young to evaluate. Assessment and Plan (1) Syncope: Status: Acute (2) UTI (urinary tract infection): Status: Acute Plan 66-year-old female with past medical history of metastatic ovarian cancer, intravesicular fistula, presents to the hospital with complaints of syncopal episode and intractable midsternal pain. Found to have manubrium fracture as well as UTI UTI no evidence of sepsis - has history of Enterobacter cloacae and Enterococcus faecium species sensitive to Levaquin - patient started on IV antibiotics - follow cultures labia cellulitis no significant erythema today - probably secondary to the the anterior enterovesical fistula - continue Levaquin syncope pt reports falling off the commode unable to tolerate orthostatic vitals - continue IV fluids - tele monitoring manubrium fracture - secondary to fall - pain control h/o DM No longer on medication, HbA1c 5.0 Hypoglycemia this morning Likely due to decreased p.o. intake will follow POCs elevated lactic acid ?secondary to liver dysfunction r/t liver mets vs dehydration continue IVF enterovesical fistula evaluated by surgery in the past, found to not be a surgical candidate due to advance cancer - will apply barrier cream as well as nystatin around vaginal labia normocytic anemia H/H dropped this morning but repeat shows improvement. A.m. labs likely error no evidence of bleeding Metastatic ovarian cancer Imaging shows extensive metastases and lung, lymph nodes, liver, pelvis Has been recommended for palliative care/hospice in the past, this was discussed again and patient/family continues to decline DVT prophylaxis: Heparin subQ Attending - dr. orozco Quality Stroke Does the patient have a stroke diagnosis?: No VTE Prior VTE?: No VTE Risk Level:: Medical - moderate - high VTE Device Contraindication: Treatment Not Indicated VTE Drug Contraindication: N/A - Med Ordered
[2022-01-20 16:07] LABS: Glucose, Whole Blood 118 mg/dL (60-115)
--- NOTE | 2022-01-20 19:19 | PC.NURSE ---
This nurse removed fentanyl patch on left upper outer arm on patient this morning that she had on admission, Luz CHINO witnessed disposal of used fentanyl patch. This nurse applied new fentanyl patch this morning that was prescribed.
[2022-01-20 20:06] LABS: Glucose, Whole Blood 89 mg/dL (60-115)
[2022-01-20] MEDS: traZODone HCL 50 MG TABLET PO (22:12)
[2022-01-21] MEDS: HYDROmorphone HCl 1 MG/ML SYRINGE 0.5 MG IVPUSH ×4 (02:44→18:02)
[2022-01-21 03:30] VITALS: BP 103/53; PULSE 125; RESP 18; TEMP 37.4; O2SAT 93
[2022-01-21] MEDS: oxyCODONE HCl Immed Release 5 MG TABLET 10 MG PO ×3 (05:21→20:42)
[2022-01-21] MEDS: 0.9 % Sodium Chloride 1,000 ML 100 ML IVCONT (05:25)
[2022-01-21] MEDS: levoFLOXacin/D5W 750 MG/150 ML PIGGYBACK 100 MG IV (06:24)
[2022-01-21 07:27] VITALS: BP 101/61; PULSE 100; RESP 16; TEMP 38; O2SAT 95
[2022-01-21 07:45] LABS: Glucose, Whole Blood 91 mg/dL (60-115)
[2022-01-21] MEDS: Lidocaine 4 % Patch ADH..PATCH 1 PATCH TRANSDERMA (07:50)
[2022-01-21] MEDS: Thiamine HCL 100 MG TABLET PO (07:50)
[2022-01-21] MEDS: Fluticasone Propionate Nasal 16 GM SPRAY 1 SPRAY NOSTRIL-B (07:51)
[2022-01-21] MEDS: Multivitamin TABLET 1 TAB PO (07:51)
[2022-01-21] MEDS: Nystatin Cream 15 GM TUBE 1 APPL TOPICAL ×2 (07:51→20:51)
[2022-01-21] MEDS: Mineral Oil/Petrolatum,White 106 GM Tube 1 APPL TOPICAL ×2 (07:51→20:50)
[2022-01-21 08:30] LABS: Anion Gap 9 (12-20); Blood Urea Nitrogen 6 mg/dL (9-16); Calcium 6.7 mg/dL (8.4-10.2); Carbon Dioxide 24 mmol/L (22-29); Chloride 105 mmol/L (96-108); Creatinine Clr Calc Pharmacy 59.2; Estimated Glomerular Filt Rate > 60; Glucose Random 89 mg/dL (60-115); Potassium 3.6 mmol/L (3.3-5.1); Sodium 134 mmol/L (135-145)
--- NOTE | 2022-01-21 09:32 | HO.PM.IMPN ---
Subjective Subjective Date of Service: 01/21/22 Review of Systems Follow up fall having pain to her right flank pain to chest area where she fell poor appetite feeling weak Physical Exam Vital Signs: Vital Signs: Last Vital Signs Temp 100.4 F 01/21/22 07:27 Pulse 100 01/21/22 07:27 Resp 16 01/21/22 07:27 BP 101/61 01/21/22 07:27 Pulse Ox 95 01/21/22 07:27 BMI result Body Mass Index 18.1 Appearing in no acute distress, thin and frail appearing lung sounds are clear to auscultation heart regular rate rhythm, clear S1, S2 positive bowel sounds, abdomen is soft, nontender neuro patient is alert x3, no focal deficits Objective Data Active Medications Acetaminophen (Acetaminophen 325 Mg Tablet) 650 mg PO Q6H PRN PRN Reason: Pain, Mild (Pain Scale 1-3) Dextrose (Dextrose 50 % 25 Gm/50 Ml Syringe) 25 gm IVPUSH Q15M PRN; Protocol PRN Reason: per Hypoglycemia Standing Ord. Docusate Sodium (Docusate Sodium 100 Mg Capsule) 100 mg PO DAILY PRN PRN Reason: Constipation Fentanyl (Fentanyl 25 Mcg Patch.Td72) 25 mcg TRANSDERMA Q3D [facility] Last Admin: 01/20/22 09:47 Dose: 25 mcg Documented by: NANY Fluticasone Propionate (Fluticasone Propionate Nasal 16 Gm [place]) 1 spray NOSTRIL-B DAILY [facility] Last Admin: 01/21/22 07:51 Dose: 1 spray Documented by: NANY Glucose (Glucose Gel 15 Gm Gel..Gram.) 15 gm PO Q15M PRN; Protocol PRN Reason: per Hypoglycemia Standing Ord. Heparin Sodium (Porcine) (Heparin Sodium,Porcine 5,000 Unit/Ml Vial) 5,000 unit SUBCUT Q12H [facility] Last Admin: 01/20/22 22:13 Dose: 5,000 unit Documented by: [place] Hydromorphone HCl (Hydromorphone Hcl 1 Mg/Ml Syringe) 0.5 mg IVPUSH Q4H PRN; Protocol PRN Reason: Pain, Severe (Pain Scale 7-10) Last Admin: 01/21/22 07:54 Dose: 0.5 mg Documented by: NANY Sodium Chloride (Ns) 1,000 mls @ 100 mls/hr IVCONT .Q10H [facility] Last Infusion: 01/21/22 05:25 Dose: 100 mls/hr Documented by: [place] Levofloxacin (Levaquin) 750 mg in 150 mls @ 100 mls/hr IV Q24H [facility] Last Infusion: 01/21/22 08:00 Dose: 0 mls/hr Documented by: NANY Lidocaine (Lidocaine 4 % Patch Adh..Patch) 1 patch TRANSDERMA DAILY [facility]; Protocol Last Admin: 01/21/22 07:50 Dose: 1 patch Documented by: NANY Melatonin (Melatonin 3 Mg Tablet) 6 mg PO BEDTIME PRN PRN Reason: Insomnia Multi-Ingred Cream/Lotion/Oil/Oint (Mineral Oil/Petrolatum,White 106 Gm Tube) 1 appl TOPICAL BID [facility]; Protocol Last Admin: 01/21/22 07:51 Dose: 1 appl Documented by: NANY Multivitamins/Vitamin C (Multivitamin Tablet) 1 tab PO DAILY [facility] Last Admin: 01/21/22 07:51 Dose: 1 tab Documented by: NANY Nystatin (Nystatin Cream 15 Gm Tube) 1 appl TOPICAL BID [facility]; Protocol Last Admin: 01/21/22 07:51 Dose: 1 appl Documented by: NANY Ondansetron HCl (Ondansetron Hcl 4 Mg/2 Ml Vial) 4 mg IVPUSH Q8H PRN PRN Reason: Nausea and Vomiting Last Admin: 01/20/22 09:48 Dose: 4 mg Documented by: NANY Oxybutynin Chloride (Oxybutynin Chloride Er 5 Mg Tab.Er.24) 10 mg PO DAILY [facility] Last Admin: 01/21/22 07:50 Dose: 10 mg Documented by: NANY Oxycodone HCl (Oxycodone Hcl Immed Release 5 Mg Tablet) 10 mg PO Q8H [facility] Last Admin: 01/21/22 05:21 Dose: 10 mg Documented by: [place] Pharmacy Consult (Consult Rx Perform Med Rec) 1 each MISCELLANE ONCE PRN PRN Reason: Consult order Senna/Docusate Sodium (Sennosides/Docusate Sodium Tablet) 2 tab PO DAILY PRN PRN Reason: Constipation Sodium Chloride (0.9 % Sodium Chloride Flush 3 Ml Syringe) 3 ml IVFLUSH QSHIFT [facility] Last Admin: 01/21/22 08:05 Dose: Not Given Documented by: NANY Non-Admin Reason: IV Running Thiamine HCl (Thiamine Hcl 100 Mg Tablet) 100 mg PO DAILY [facility] Last Admin: 01/21/22 07:50 Dose: 100 mg Documented by: NANY Trazodone HCl (Trazodone Hcl 50 Mg Tablet) 50 mg PO BEDTIME [facility] Last Admin: 01/20/22 22:12 Dose: 50 mg Documented by: [place] Labs CBC & Chem 7: 01/20/22 13:35 01/21/22 07:49 Labs: Laboratory Results - last 24 hr 01/20/22 01/20/22 01/20/22 08:26 12:31 13:35 MCV 91.3 MCH 28.9 MCHC 31.7 RDW 20.0 H Plt Count 291 MPV 10.3 Absolute Nucleated RBC 0.000 Nucleated RBC % (auto) 0.0 Anion Gap Estim Creat Clear Calc Estimated GFR POC Glucose 61 Random Glucose Estimat Average Glucose 97 Hemoglobin A1c % 5.0 Calcium 01/20/22 01/20/22 01/21/22 15:11 19:17 07:29 MCV MCH MCHC RDW Plt Count MPV Absolute Nucleated RBC Nucleated RBC % (auto) Anion Gap Estim Creat Clear Calc Estimated GFR POC Glucose 118 H 89 91 Random Glucose Estimat Average Glucose Hemoglobin A1c % Calcium 01/21/22 07:49 MCV MCH MCHC RDW Plt Count MPV Absolute Nucleated RBC Nucleated RBC % (auto) Anion Gap 9 L Estim Creat Clear Calc 59.2 Estimated GFR > 60 POC Glucose Random Glucose 89 Estimat Average Glucose Hemoglobin A1c % Calcium 6.7 L Microbiology Microbiology Results: Microbiology 01/19/22 21:53 Urine Culture - Final Urine clean catch - Urine antoine top 01/19/22 14:11 Blood Culture - Preliminary Blood - Venous No growth after 24 hours. 01/19/22 14:08 Blood Culture - Preliminary Blood - Venous No growth after 24 hours. Assessment and Plan (1) Syncope: Status: Acute (2) UTI (urinary tract infection): Status: Acute Plan 66-year-old female with past medical history of metastatic ovarian cancer, intravesicular fistula, presents to the hospital with complaints of syncopal episode and intractable midsternal pain. Found to have manubrium fracture as well as UTI UTI no evidence of sepsis has history of Enterobacter cloacae and Enterococcus faecium species sensitive to Levaquin follow cultures labia cellulitis no significant erythema today probably secondary to the the anterior enterovesical fistula continue Levaquin syncope pt reports falling off the commode, states that she has had multiple falls more recently due to weakness unable to tolerate orthostatic vitals continue IV fluids tele monitoring PT consult manubrium fracture secondary to fall pain control sipportive care DM II No longer on medication, HbA1c 5.0 Hypoglycemia this morning Likely due to decreased p.o. intake will follow POCs elevated lactic acid ?secondary to liver dysfunction r/t liver mets vs dehydration continue IVF enterovesical fistula evaluated by surgery in the past, found to not be a surgical candidate due to advance cancer will apply barrier cream as well as nystatin around vaginal labia normocytic anemia stable no evidence of bleeding Metastatic ovarian cancer Imaging shows extensive metastases and lung, lymph nodes, liver, pelvis Has been recommended for palliative care/hospice in the past, this was discussed again and patient/family continues to decline DVT prophylaxis: Heparin subQ Attending - Dr. Freitas Full code Patient requires continued hospitalization for treatment of urinary tract infection, urine cultures are pending and pain management requiring IV pain medication Quality Stroke Does the patient have a stroke diagnosis?: No VTE Prior VTE?: No VTE Risk Level:: Medical - moderate - high VTE Device Contraindication: Treatment Not Indicated VTE Drug Contraindication: N/A - Med Ordered
[2022-01-21 11:38] LABS: Glucose, Whole Blood 81 mg/dL (60-115)
[2022-01-21 11:47] VITALS: BP 98/49; PULSE 107; RESP 17; TEMP 37.4; O2SAT 98
--- NOTE | 2022-01-21 11:49 | MHC.SL.SWA ---
Speech Pathologist Impression: Oral phase dysphagia Risk of Aspiration Due to: Medically Fragile Dysphasia Diet Status: No change to existing diet Liquid Consistency and Strategies for Safe Swallow: Liquid Intake Recommendation: Thin Liquid Intake Strategies: Small Sips Solid Food Consistency: Dietary Recommendations: Regular Additional Modifications to Solid Foods: Order placed for ROAD DRIVER consult after patient complained of difficulty swallowing pills. Per RN, patient wanted to swallow pills with gingerale. Patient reportedly tolerated pills w/ liquid this morning. Patient seen for bedside swallow evaluation. Patient was able to feed herself. Patient w/ no top teeth, bottom teeth were in adequate condition for mastication. Oral phase was mildly prolonged but with good oral clearance. Patient tolerated regular texture solids. No clinical signs of aspiration when drinking thin liquid by cup. Recommend patient continue with regular solids and thin liquids. Pills whole in PUREE or LIQUID per tolerance, w/ non-carbonated liquids. Recommend patient to avoid tough, difficult to chew solids. Moisten food with sauce/gravy as needed. Alternate bites of food with sips of liquid. Ensure aspiration precautions. ROAD DRIVER to f/u 1x time to ensure tolerance. Oral Medication Intake: Whole with Liquid Please contact the pharmacy regarding appropriate crushable or liquid drug formulations that are available whenever modified delivery is recommended. Compensatory Strategies and Precautions to be Taken for Safe Swallow: Sitting Upright (90 deg) Small Bites and Sips Alternate Liquids/Solids Rate of Ingestion Change Avoid Specific Foods Supervision While Eating and Drinking for Safe Swallow: Total Supervision (1:1) Foods to Avoid: Tough, difficult to chew solids Swallowing Recommended Treatments: Compens. Strategy Educat. Recommendation for Speech: Inpatient Speech Therapy Comment: 1 f/u Balance Wheel Arm Burnisher Clinican/Clinical Fellow: No Supervisory Statement: I have reviewed and agree with the student/clinical fellow's documentation: N/A Speech Language Pathologist: Yoly Figueroa M.A., [facility]-ROAD DRIVER
--- NOTE | 2022-01-21 12:55 | HO.WOUNDCONS ---
History of Present Illness Data of Consult Service Date: 01/21/22 Requesting physician: Cary Jerez Primary Care Provider: Katalina Larson MD HPI Reason for consult: labia cellulitis [id number]: 66-year-old female with metastatic ovarian cancer presents to hospital after syncopal episode and fall. Has manubrium fracture and UTI. Has a vaginal fistula and chronic wet stool incontinence presumably through the fistula. Asked to evaluate for labia cellulitis which is not within the scope of the wound care clinic, but inclined to take a look to see if we can be helpful. Review of Systems Review of Systems: reports vulvar pain PMFSH Medical History Acute UTI Arthritis Bacteremia Diabetes Enterovesical fistula On total parenteral nutrition Osteoporosis Pelvic cancer Rectovaginal fistula Family History (Updated 01/20/22 @ 06:22 by Maribel Edward MD) Other No family history of coronary artery disease Surgical History History of colon resection Hx of cholecystectomy Social History Household Members: Spouse Housing: House Do you presently have visiting nurse or other home services: Yes Alcohol intake: never Patient Tobacco Use Status: Never used Tobacco Advance Directives Date on File: 05/04/21 service: No Current occupational status: unemployed and retired Meds Allergies Allergy/AdvReac Type Severity Reaction Status Date / Time Iodinated Contrast Media Allergy Severe DIFF.BREATH Verified 06/11/21 13:16 [IV Dye, Iodine Containing] ING Penicillins AdvReac Mild PASSED OUT Verified 06/11/21 13:16 Environmental Allergy Mild ITCHY Uncoded 05/04/20 16:02 EYES/RUNNY NOSE DYE Allergy Unknown Unknown Uncoded 05/03/21 16:31 PENICILLIN G Allergy Unknown Unknown Uncoded 05/03/21 16:31 Active Medications: Current Medications Acetaminophen (Acetaminophen 325 Mg Tablet) 650 mg PO Q6H PRN PRN Reason: Pain, Mild (Pain Scale 1-3) Dextrose (Dextrose 50 % 25 Gm/50 Ml Syringe) 25 gm IVPUSH Q15M PRN; Protocol PRN Reason: per Hypoglycemia Standing Ord. Docusate Sodium (Docusate Sodium 100 Mg Capsule) 100 mg PO DAILY PRN PRN Reason: Constipation Fentanyl (Fentanyl 25 Mcg Patch.Td72) 25 mcg TRANSDERMA Q3D [facility] [place] Last Admin: 01/20/22 09:47 Dose: 25 mcg Documented by: Fluticasone Propionate (Fluticasone Propionate Nasal 16 Gm [place]) 1 spray NOSTRIL-B DAILY [facility] [place] Last Admin: 01/21/22 07:51 Dose: 1 spray Documented by: Glucose (Glucose Gel 15 Gm Gel..Gram.) 15 gm PO Q15M PRN; Protocol PRN Reason: per Hypoglycemia Standing Ord. Heparin Sodium (Porcine) (Heparin Sodium,Porcine 5,000 Unit/Ml Vial) 5,000 unit SUBCUT Q12H [facility] [place] Last Admin: 01/21/22 10:48 Dose: Not Given Documented by: Hydromorphone HCl (Hydromorphone Hcl 1 Mg/Ml Syringe) 0.5 mg IVPUSH Q4H PRN; Protocol PRN Reason: Pain, Severe (Pain Scale 7-10) Last Admin: 01/21/22 12:05 Dose: 0.5 mg Documented by: Sodium Chloride (Ns) 1,000 mls @ 100 mls/hr IVCONT .Q10H [facility] [place] Last Admin: 01/21/22 05:25 Dose: 100 mls/hr Documented by: Levofloxacin (Levaquin) 750 mg in 150 mls @ 100 mls/hr IV Q24H [facility] [place] Last Infusion: 01/21/22 08:00 Dose: Infused Documented by: Lidocaine (Lidocaine 4 % Patch Adh..Patch) 1 patch TRANSDERMA DAILY [facility] [place]; Protocol Last Admin: 01/21/22 07:50 Dose: 1 patch Documented by: Melatonin (Melatonin 3 Mg Tablet) 6 mg PO BEDTIME PRN PRN Reason: Insomnia Multi-Ingred Cream/Lotion/Oil/Oint (Mineral Oil/Petrolatum,White 106 Gm Tube) 1 appl TOPICAL BID [facility] [place]; Protocol Last Admin: 01/21/22 07:51 Dose: 1 appl Documented by: Multivitamins/Vitamin C (Multivitamin Tablet) 1 tab PO DAILY [facility] [place] Last Admin: 01/21/22 07:51 Dose: 1 tab Documented by: Nystatin (Nystatin Cream 15 Gm Tube) 1 appl TOPICAL BID [facility] [place]; Protocol Last Admin: 01/21/22 07:51 Dose: 1 appl Documented by: Ondansetron HCl (Ondansetron Hcl 4 Mg/2 Ml Vial) 4 mg IVPUSH Q8H PRN PRN Reason: Nausea and Vomiting Last Admin: 01/20/22 09:48 Dose: 4 mg Documented by: Oxybutynin Chloride (Oxybutynin Chloride Er 5 Mg Tab.Er.24) 10 mg PO DAILY [facility] [place] Last Admin: 01/21/22 07:50 Dose: 10 mg Documented by: Oxycodone HCl (Oxycodone Hcl Immed Release 5 Mg Tablet) 10 mg PO Q8H [facility] [place] Last Admin: 01/21/22 05:21 Dose: 10 mg Documented by: Pharmacy Consult (Consult Rx Perform Med Rec) 1 each MISCELLANE ONCE PRN PRN Reason: Consult order Senna/Docusate Sodium (Sennosides/Docusate Sodium Tablet) 2 tab PO DAILY PRN PRN Reason: Constipation Sodium Chloride (0.9 % Sodium Chloride Flush 3 Ml Syringe) 3 ml IVFLUSH QSHIFT [facility] [place] Last Admin: 01/21/22 08:05 Dose: Not Given Documented by: Thiamine HCl (Thiamine Hcl 100 Mg Tablet) 100 mg PO DAILY [facility] [place] Last Admin: 01/21/22 07:50 Dose: 100 mg Documented by: Trazodone HCl (Trazodone Hcl 50 Mg Tablet) 50 mg PO BEDTIME [facility] [place] Last Admin: 01/20/22 22:12 Dose: 50 mg Documented by: Home Medications Medication Instructions Recorded Confirmed Last Taken Type melatonin 5 mg tablet 1 tab PO BEDTIME PRN 05/03/21 01/19/22 05/02/21 History acetaminophen 325 mg tablet 3 tab PO Q6H PRN 10/02/21 01/19/22 Unknown History fentanyl 25 mcg/hr transdermal 1 patch TOPICAL Q3D 10/02/21 01/19/22 09/28/21 History patch sennosides 8.6 mg-docusate sodium 2 tab PO DAILY PRN 10/02/21 01/19/22 Unknown History 50 mg tablet (Senna Plus) fentanyl 12 mcg/hr transdermal 1 patch TOPICAL Q3D 01/19/22 01/19/22 Unknown History patch fluticasone propionate 50 1 spray INTRANASAL DAILY 01/19/22 01/19/22 Unknown History mcg/actuation nasal spray,suspension multivitamin with folic acid 400 1 tab PO DAILY 01/19/22 01/19/22 Unknown History mcg tablet (Daily-Ebltran (with folic acid)) naloxone 4 mg/actuation nasal spray 1 spray INTRANASAL Q5M PRN 01/19/22 01/19/22 Unknown History oxybutynin chloride 10 mg 1 tab PO DAILY 01/19/22 01/19/22 Unknown History tablet,extended release 24 hr oxycodone 10 mg tablet 10 mg PO Q8H 01/19/22 01/19/22 Unknown History oxycodone 5 mg tablet 5 mg PO DAILY PRN 01/19/22 01/19/22 Unknown History thiamine HCl (vitamin B1) 100 mg 1 tab DAILY 01/19/22 01/19/22 Unknown History tablet trazodone 50 mg tablet 50 mg PO BEDTIME 01/19/22 01/19/22 Unknown History Physical Exam Vital Signs and Narrative: Vital Signs: Last Vital Signs Temp 99.3 F 01/21/22 11:47 Pulse 107 H 01/21/22 11:47 Resp 17 01/21/22 11:47 BP 98/49 L 01/21/22 11:47 Pulse Ox 98 01/21/22 11:47 BMI result Body Mass Index 18.1 Patient agrees to and accepts the limited exam. She has an indurated, reddened area below the umbilicus less of unclear etiology. This is not an open wound. It is not particularly painful. He does not surrounded by any erythema or edema to suggest active infection at the site. When the patient is examined. She has had a recent bout of liquid stool which coats the vulva, saturates the chucks and coats the buttocks. Vulva not particularly reddened. No streaking or warmth. Skin breakdown is superficial, does not seem to involve deeper sensitive structures. Bimanual exam is not appropriate and therefore not performed. Results Labs CBC and Chem 7: 01/20/22 13:35 01/21/22 07:49 Labs: Laboratory Results - last 24 hr 01/20/22 01/20/22 01/20/22 13:35 15:11 19:17 MCV 91.3 MCH 28.9 MCHC 31.7 RDW 20.0 H Plt Count 291 MPV 10.3 Absolute Nucleated RBC 0.000 Nucleated RBC % (auto) 0.0 Anion Gap Estim Creat Clear Calc Estimated GFR POC Glucose 118 H 89 Random Glucose Calcium 01/21/22 01/21/22 01/21/22 07:29 07:49 11:33 MCV MCH MCHC RDW Plt Count MPV Absolute Nucleated RBC Nucleated RBC % (auto) Anion Gap 9 L Estim Creat Clear Calc 59.2 Estimated GFR > 60 POC Glucose 91 81 Random Glucose 89 Calcium 6.7 L Assessment and Plan (1) Rectovaginal fistula: Status: Acute Plan 66-year-old female with metastatic ovarian cancer and enterovaginal fistula involving stool incontinence from the vagina which has become a bit burden some for the family. Additionally, it is causing maceration of the vulva. Not much to offer here in terms of wound care strategies. Containment devices are not appropriate. Zinc oxide is the best approach for barrier protection of the vulva. I would avoid petroleum products unless they afford better relief of discomfort. A topical Lidocaine dressing might be helpful. Discussed with nursing as to whether bulking of the stools may help with incontinence but likely not practical and largely unhelpful. I do not see any signs of acute cellulitis. Might consider conversation with surgery colleagues for other ideas.
--- NOTE | 2022-01-21 13:06 | MHC.CM.PN ---
nurse lining caser note electronic medical record reviewed alonmg with case diascussed with hosptialsit , (per docunetnation patient with histroy of mestatic ovarian canecer, intravesicular fistula came to hospitla with compliants of syncopal episode and intractable midsternal pain found to have a manubriumk fracture and uti n pTIENT HAS BEEN SEEN BY SURGEON AND NOT CANDIADATE FOR SURGICAL INTERVCENTION. ) PLEASE SEE IMAGING SHOWINF EXTENSICE METASTASES, PALATIVE CARE .HOSPICE ARE DISCUSSED BY THE HOSPITLAIST AND PATIENTS FAMILY CONITNUES TO [place] [facility] CASE MNAAGER TO MENDEL OT FOLLOW FOR DISCHARGE NEEDS ? 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
[2022-01-21 13:30] VITALS: BMI 18.1
[2022-01-21 15:18] VITALS: BP 109/55; PULSE 105; RESP 18; TEMP 37.2; O2SAT 98
[2022-01-21 15:51] LABS: Glucose, Whole Blood 134 mg/dL (60-115)
[2022-01-21] MEDS: Zinc Oxide 20% Ointment 28.35 GM TUBE 1 APPL TOPICAL ×2 (18:08→20:51)
[2022-01-21 19:39] VITALS: BP 92/46; PULSE 100; RESP 18; TEMP 37.2; O2SAT 96
[2022-01-21 19:51] LABS: Glucose, Whole Blood 165 mg/dL (60-115)
[2022-01-21] MEDS: traZODone HCL 50 MG TABLET PO (20:42)
[2022-01-21] MEDS: Heparin Sodium,Porcine 5,000 UNIT/ML VIAL 5000 UNIT SUBCUT (20:43)
[2022-01-21 20:53] VITALS: BP 95/45
[2022-01-21 21:01] LABS: Glucose, Whole Blood 168 mg/dL (60-115)
[2022-01-22] VITALS (7 sets, daily range): BP systolic 93–106; BP diastolic 47–54; PULSE 85–103; RESP 16–18; TEMP 36.3–37.3; O2SAT 93–98
[2022-01-22] MEDS: oxyCODONE HCl Immed Release 5 MG TABLET 10 MG PO ×5 (05:21→23:03)
[2022-01-22 06:13] LABS: Hematocrit 29.5 % (37.0-47.0); Hemoglobin 9.2 g/dl (12.0-16.0); Mean Corpuscular HGB Conc 31.2 g/dl (31.0-35.0); Mean Corpuscular Hemoglobin 28.3 pg (27.0-33.0); Mean Corpuscular Volume 90.8 fL (80.0-98.0); Mean Platelet Volume 10.2 fL (9.4-12.3); Platelet Count 279 X10*3/uL (160-400); Red Blood Count 3.25 X10*6/uL (4.20-5.50); Red Cell Distribution Width 19.8 % (11.0-16.0); White Blood Count 10.1 X10*3/uL (4.8-10.8)
[2022-01-22 06:27] LABS: Anion Gap 9 (12-20); Blood Urea Nitrogen 6 mg/dL (9-16); Calcium 6.8 mg/dL (8.4-10.2); Carbon Dioxide 25 mmol/L (22-29); Chloride 105 mmol/L (96-108); Creatinine Clr Calc Pharmacy 58.2; Estimated Glomerular Filt Rate > 60; Glucose Random 65 mg/dL (60-115); Potassium 4.2 mmol/L (3.3-5.1); Sodium 135 mmol/L (135-145)
[2022-01-22] MEDS: levoFLOXacin/D5W 750 MG/150 ML PIGGYBACK 100 MG IV (06:41)
[2022-01-22] MEDS: Lidocaine 4 % Patch ADH..PATCH 1 PATCH TRANSDERMA (07:26)
[2022-01-22] MEDS: Thiamine HCL 100 MG TABLET PO (07:29)
[2022-01-22] MEDS: 0.9 % Sodium Chloride Flush 3 ML SYRINGE IVFLUSH ×2 (07:33→20:21)
[2022-01-22] MEDS: Fluticasone Propionate Nasal 16 GM SPRAY 1 SPRAY NOSTRIL-B (07:33)
[2022-01-22] MEDS: Mineral Oil/Petrolatum,White 106 GM Tube 1 APPL TOPICAL ×2 (07:33→20:21)
[2022-01-22 07:42] LABS: Glucose, Whole Blood 110 mg/dL (60-115)
--- NOTE | 2022-01-22 08:56 | HO.PM.IMPN ---
Subjective Subjective Date of Service: 01/22/22 Review of Systems Follow up fall having pain to her right flank pain to chest area where manubrium fracture is located poor appetite, some nausea feeling weak Physical Exam Vital Signs: Vital Signs: Last Vital Signs Temp 99.2 F 01/22/22 07:16 Pulse 99 01/22/22 07:16 Resp 17 01/22/22 07:16 BP 93/47 L 01/22/22 07:16 Pulse Ox 93 01/22/22 07:16 BMI result Body Mass Index 18.1 In no acute distress, thin and frail appearing lung sounds are clear to auscultation heart regular rate rhythm, clear S1, S2 positive bowel sounds, abdomen is soft, nontender neuro patient is alert x3, no focal deficits Objective Data Active Medications Acetaminophen (Acetaminophen 325 Mg Tablet) 650 mg PO Q6H PRN PRN Reason: Pain, Mild (Pain Scale 1-3) Dextrose (Dextrose 50 % 25 Gm/50 Ml Syringe) 25 gm IVPUSH Q15M PRN; Protocol PRN Reason: per Hypoglycemia Standing Ord. Docusate Sodium (Docusate Sodium 100 Mg Capsule) 100 mg PO DAILY PRN PRN Reason: Constipation Fentanyl (Fentanyl 25 Mcg Patch.Td72) 25 mcg TRANSDERMA Q3D REPLACED BY [facility] Last Admin: 01/20/22 09:47 Dose: 25 mcg Documented by: NANY Fluticasone Propionate (Fluticasone Propionate Nasal 16 Gm [place]) 1 spray NOSTRIL-B DAILY REPLACED BY [facility] Last Admin: 01/22/22 07:33 Dose: 1 spray Documented by: [place] Glucose (Glucose Gel 15 Gm Gel..Gram.) 15 gm PO Q15M PRN; Protocol PRN Reason: per Hypoglycemia Standing Ord. Heparin Sodium (Porcine) (Heparin Sodium,Porcine 5,000 Unit/Ml Vial) 5,000 unit SUBCUT Q12H REPLACED BY [facility] Last Admin: 01/21/22 20:43 Dose: 5,000 unit Documented by: [place] Hydromorphone HCl (Hydromorphone Hcl 1 Mg/Ml Syringe) 0.5 mg IVPUSH Q4H PRN; Protocol PRN Reason: Pain, Severe (Pain Scale 7-10) Last Admin: 01/21/22 18:02 Dose: 0.5 mg Documented by: NANY Levofloxacin (Levaquin) 750 mg in 150 mls @ 100 mls/hr IV Q24H REPLACED BY [facility] Last Infusion: 01/22/22 08:30 Dose: 0 mls/hr Documented by: [place] Lidocaine (Lidocaine 4 % Patch Adh..Patch) 1 patch TRANSDERMA DAILY [facility]PLACED BY [facility]; Protocol Last Admin: 01/22/22 07:26 Dose: 1 patch Documented by: [place] Melatonin (Melatonin 3 Mg Tablet) 6 mg PO BEDTIME PRN PRN Reason: Insomnia Multi-Ingred Cream/Lotion/Oil/Oint (Mineral Oil/Petrolatum,White 106 Gm Tube) 1 appl TOPICAL BID REPLACED BY [facility]; Protocol Last Admin: 01/22/22 07:33 Dose: 1 appl Documented by: [place] Multivitamins/Vitamin C (Multivitamin Tablet) 1 tab PO DAILY REPLACED BY [facility] Last Admin: 01/22/22 07:34 Dose: Not Given Documented by: [place] Non-Admin Reason: Patient Refused Nystatin (Nystatin Cream 15 Gm Tube) 1 appl TOPICAL BID REPLACED BY [facility]; Protocol Last Admin: 01/21/22 20:51 Dose: 1 appl Documented by: [place] Ondansetron HCl (Ondansetron Hcl 4 Mg/2 Ml Vial) 4 mg IVPUSH Q8H PRN PRN Reason: Nausea and Vomiting Last Admin: 01/20/22 09:48 Dose: 4 mg Documented by: NANY Oxybutynin Chloride (Oxybutynin Chloride Er 5 Mg Tab.Er.24) 10 mg PO DAILY REPLACED BY [facility] Last Admin: 01/22/22 07:29 Dose: 10 mg Documented by: [place] Oxycodone HCl (Oxycodone Hcl Immed Release 5 Mg Tablet) 10 mg PO Q8H REPLACED BY [facility] Last Admin: 01/22/22 05:21 Dose: 10 mg Documented by: [place] Pharmacy Consult (Consult Rx Perform Med Rec) 1 each MISCELLANE ONCE PRN PRN Reason: Consult order Senna/Docusate Sodium (Sennosides/Docusate Sodium Tablet) 2 tab PO DAILY PRN PRN Reason: Constipation Sodium Chloride (0.9 % Sodium Chloride Flush 3 Ml Syringe) 3 ml IVFLUSH QSHIFT REPLACED BY [facility] Last Admin: 01/22/22 07:33 Dose: 3 ml Documented by: [place] Thiamine HCl (Thiamine Hcl 100 Mg Tablet) 100 mg PO DAILY REPLACED BY [facility] Last Admin: 01/22/22 07:29 Dose: 100 mg Documented by: [place] Trazodone HCl (Trazodone Hcl 50 Mg Tablet) 50 mg PO BEDTIME REPLACED BY [facility] Last Admin: 01/21/22 20:42 Dose: 50 mg Documented by: [place] Zinc Oxide (Zinc Oxide 20% Ointment 28.35 Gm Tube) 1 appl TOPICAL TID REPLACED BY [facility]; Protocol Last Admin: 01/21/22 20:51 Dose: 1 appl Documented by: [place] Labs CBC & Chem 7: 01/22/22 05:15 01/22/22 05:15 Labs: Laboratory Results - last 24 hr 01/21/22 01/21/22 01/21/22 11:33 15:16 19:43 MCV MCH MCHC RDW Plt Count MPV Absolute Nucleated RBC Nucleated RBC % (auto) Anion Gap Estim Creat Clear Calc Estimated GFR POC Glucose 81 134 H 165 H Random Glucose Calcium 01/21/22 01/22/22 01/22/22 20:56 05:15 05:15 MCV 90.8 MCH 28.3 MCHC 31.2 RDW 19.8 H Plt Count 279 MPV 10.2 Absolute Nucleated RBC 0.000 Nucleated RBC % (auto) 0.0 Anion Gap 9 L Estim Creat Clear Calc 58.2 Estimated GFR > 60 POC Glucose 168 H Random Glucose 65 Calcium 6.8 L 01/22/22 07:20 MCV MCH MCHC RDW Plt Count MPV Absolute Nucleated RBC Nucleated RBC % (auto) Anion Gap Estim Creat Clear Calc Estimated GFR POC Glucose 110 Random Glucose Calcium Microbiology Microbiology Results: Microbiology 01/19/22 14:11 Blood Culture - Preliminary Blood - Venous No growth after 48 hours. 01/19/22 14:08 Blood Culture - Preliminary Blood - Venous No growth after 48 hours. 01/19/22 21:53 Urine Culture - Final Urine clean catch - Urine antoine top Assessment and Plan (1) Syncope: Status: Acute (2) UTI (urinary tract infection): Status: Acute Plan 66-year-old female with past medical history of metastatic ovarian cancer, intravesicular fistula, presents to the hospital with complaints of syncopal episode and intractable midsternal pain. Found to have manubrium fracture as well as UTI Failure to thrive weakness, poor appetite, pain low BMI add D5NS (in light of hypoglycemia also and poor po intake, watch POC) manubrium fracture. Still with significant pain as well as abdominal pain secondary to fall pain control, scheduled tylenol and oxycodone, adjust frequency of other pain medications as needed monitor for sedation supportive care labial cellulitis no significant erythema today, no open wound, seen by wound care provider probably secondary to the the anterior enterovesical fistula stop abx UTI no evidence of sepsis has history of Enterobacter cloacae and Enterococcus faecium species sensitive to Levaquin cx showing mixed bella will stop abx syncope pt reports falling off the commode, states that she has had multiple falls more recently due to weakness unable to tolerate orthostatic vitals continue IV fluids tele monitoring PT consult rec home with 24 hour care DM II No longer on medication, HbA1c 5.0 Hypoglycemia this morning Likely due to decreased p.o. intake will follow POCs elevated lactic acid ?secondary to liver dysfunction r/t liver mets vs dehydration continue IVF enterovesical fistula evaluated by surgery in the past, found to not be a surgical candidate due to advance cancer will apply barrier cream as well as nystatin around vaginal labia normocytic anemia stable no evidence of bleeding Metastatic ovarian cancer Imaging shows extensive metastases and lung, lymph nodes, liver, pelvis Has been recommended for palliative care/hospice in the past, this was discussed again and patient/family continues to decline Severe protein calorie malnutrition. BMI 18.1 Add Protein to diet, supplements DVT prophylaxis: Heparin subQ Attending - Dr. Freitas Full code Patient requires continued hospitalization for treatment for intractable pain and nausea requiring IV pain medication and IV fluids for failure to thrive with poor p.o. intake Quality Stroke Does the patient have a stroke diagnosis?: No VTE Prior VTE?: No VTE Risk Level:: Medical - moderate - high VTE Device Contraindication: Treatment Not Indicated VTE Drug Contraindication: N/A - Med Ordered
[2022-01-22] MEDS: Acetaminophen 325 MG TABLET 650 MG PO ×2 (09:28→20:16)
[2022-01-22] MEDS: Heparin Sodium,Porcine 5,000 UNIT/ML VIAL 5000 UNIT SUBCUT ×2 (09:30→20:17)
[2022-01-22] MEDS: Dextrose 5 % and 0.9 % NaCl 1,000 ML 80 ML IVCONT (09:34)
[2022-01-22] MEDS: Zinc Oxide 20% Ointment 28.35 GM TUBE 1 APPL TOPICAL ×3 (09:36→20:33)
--- NOTE | 2022-01-22 10:00 | MHC.SL.SWA ---
Speech Pathologist Impression: Risk of Aspiration Due to: Medically Fragile Dysphasia Diet Status: REGULAR foods with THIN liquids, PILLS Whole w/ liquid. Avoid tough/difficult to chew solids due to missing upper teeth. Due to appetite issues, pt may benefit from more frequent smaller meals. Liquid Consistency and Strategies for Safe Swallow: Liquid Intake Recommendation: Thin Liquid Intake Strategies: Small Sips Solid Food Consistency: Dietary Recommendations: Regular Additional Modifications to Solid Foods: Patient w/ no top teeth, bottom teeth were in adequate condition for mastication. . Recommend patient continue with regular solids and thin liquids. Pills whole in PUREE or LIQUID per tolerance, w/ non-carbonated liquids. Recommend patient to avoid tough, difficult to chew solids. Moisten food with sauce/gravy as needed. Alternate bites of food with sips of liquid. Ensure aspiration precautions. . Oral Medication Intake: Whole with Liquid Please contact the pharmacy regarding appropriate crushable or liquid drug formulations that are available whenever modified delivery is recommended. Compensatory Strategies and Precautions to be Taken for Safe Swallow: Sitting Upright (90 deg) Small Bites and Sips Alternate Liquids/Solids Rate of Ingestion Change Avoid Specific Foods Supervision While Eating and Drinking for Safe Swallow: Intermittent Supervision Foods to Avoid: Tough, difficult to chew solids Swallowing Recommended Treatments: Compens. Strategy Educat. Recommendation for Speech: Inpatient Speech Therapy Comment: Pt seen this a.m. for follow up/toleration of diet. Pt was lying in bed on side, w/ head of bed only marginally elevated, picking at food from tray which was at bedside. Pt agreed to have head of bed elevated for eating, but winced with pain when it was raised to 80 degrees, so it was lowered to 60 degrees which she found comfortable. Pt had eaten one of the [place] toasts on the tray, some of the fruit salad, some of the proctor and some of the juice and Ensure. Pt reported no difficult with eating but stated that she didn't have much of an appetite this morning. Observed PT taking sip of Ensure shake with swallow phases WFL. Recommended Pt try to finish shake to supplement her nutrition, due to her low appetite. Recommend Pt continue on current diet of REGULAR foods with THIN liquids, PILLS WHOLE w/ liquid. I would recommend that Pt be provided with some assistance at start of meal to assure that she is seated properly, and the tray is set up for her so that she can readily access it. Recommend discharge from speech at this time as swallow is WFL and pt is tolerating diet consistencies (but may have low appetite). Frequency/Duration: Date Range for Service Req: Timeline to reassess: Hydraulic Barker Operator Clinican/Clinical Fellow: No Supervisory Statement: I have reviewed and agree with the student/clinical fellow's documentation: N/A Speech Language Pathologist: Lupe Mccall M.A., CCC-MUFFLER TENDER
[2022-01-22] MEDS: HYDROmorphone HCl 0.5 MG/0.5 ML SYRINGE IVPUSH ×2 (10:30→20:16)
[2022-01-22 11:09] LABS: Glucose, Whole Blood 105 mg/dL (60-115)
[2022-01-22 16:19] LABS: Glucose, Whole Blood 88 mg/dL (60-115)
[2022-01-22 19:42] LABS: Glucose, Whole Blood 146 mg/dL (60-115)
[2022-01-22] MEDS: traZODone HCL 50 MG TABLET PO (20:14)
[2022-01-22] MEDS: Nystatin Oral Susp 500,000 UNIT/5 ML ORAL.SUSP 200000 UNIT PO (20:15)
[2022-01-22] MEDS: Nystatin Cream 15 GM TUBE 1 APPL TOPICAL (20:23)
[2022-01-23] MEDS: HYDROmorphone HCl 0.5 MG/0.5 ML SYRINGE IVPUSH ×3 (01:37→10:40)
[2022-01-23] MEDS: Acetaminophen 325 MG TABLET 650 MG PO ×2 (03:04→09:50)
[2022-01-23 03:31] VITALS: BP 101/48; PULSE 112; RESP 18; TEMP 36.6; O2SAT 97
[2022-01-23] MEDS: oxyCODONE HCl Immed Release 5 MG TABLET 10 MG PO ×2 (05:20→12:51)
[2022-01-23 07:31] LABS: Glucose, Whole Blood 74 mg/dL (60-115)
[2022-01-23] MEDS: 0.9 % Sodium Chloride Flush 3 ML SYRINGE IVFLUSH (07:46)
[2022-01-23 08:00] VITALS: BP 94/52; PULSE 99; RESP 18; TEMP 37.4; O2SAT 94
[2022-01-23] MEDS: Thiamine HCL 100 MG TABLET PO (08:08)
[2022-01-23] MEDS: Lidocaine 4 % Patch ADH..PATCH 1 PATCH TRANSDERMA (08:09)
[2022-01-23] MEDS: Nystatin Oral Susp 500,000 UNIT/5 ML ORAL.SUSP 200000 UNIT PO ×2 (08:09→12:52)
[2022-01-23] MEDS: ondansetron HCL 4 MG/2 ML VIAL IVPUSH (08:15)
[2022-01-23] MEDS: fentaNYL 25 MCG PATCH.TD72 TRANSDERMA (09:48)
[2022-01-23] MEDS: Fluticasone Propionate Nasal 16 GM SPRAY 1 SPRAY NOSTRIL-B (09:53)
[2022-01-23] MEDS: Zinc Oxide 20% Ointment 28.35 GM TUBE 1 APPL TOPICAL (09:53)
[2022-01-23] MEDS: Mineral Oil/Petrolatum,White 106 GM Tube 1 APPL TOPICAL (09:53)
[2022-01-23] MEDS: Heparin Sodium,Porcine 5,000 UNIT/ML VIAL 5000 UNIT SUBCUT (11:02)
--- NOTE | 2022-01-23 11:03 | HO.PM.IMPN ---
Subjective Subjective Date of Service: 01/23/22 Interval History: cc: syncope interval history:diffuse pain Cardiovascular Cardiovascular: Reports no additional cardiovascular complaints Respiratory Respiratory: Reports no additional respiratory complaints Physical Exam Vital Signs: Vital Signs: Last Vital Signs Temp 99.3 F 01/23/22 08:00 Pulse 99 01/23/22 08:00 Resp 18 01/23/22 08:00 BP 94/52 L 01/23/22 08:00 Pulse Ox 94 01/23/22 08:00 O2 Del Method 01/23/22 08:00 BMI result Body Mass Index 18.1 General: AO X 3, frail, in pain Resp: diminished bilateral, no accessory muscles used CVS: S1,S2,RRR GI: soft, non tender, non distended Neuro: motor grossly intact, alert Psych: appropriate affect, appropriate insight Objective Data Active Medications Acetaminophen (Acetaminophen 325 Mg Tablet) 650 mg PO Q6H [facility] Last Admin: 01/23/22 09:50 Dose: 650 mg Documented By: CAROLINA Dextrose (Dextrose 50 % 25 Gm/50 Ml Syringe) 25 gm IVPUSH Q15M PRN; Protocol PRN Reason: per Hypoglycemia Standing Ord. Diphenhydramine HCl (Diphenhydramine Hcl 25 Mg Tablet) 25 mg PO Q4H PRN PRN Reason: Allergic Reaction Docusate Sodium (Docusate Sodium 100 Mg Capsule) 100 mg PO DAILY PRN PRN Reason: Constipation Fentanyl (Fentanyl 25 Mcg Patch.Td72) 25 mcg TRANSDERMA Q3D [facility] Last Admin: 01/23/22 09:48 Dose: 25 mcg Documented By: CAROLINA Fluticasone Propionate (Fluticasone Propionate Nasal 16 Gm [place]) 1 spray NOSTRIL-B DAILY [facility] Last Admin: 01/23/22 09:53 Dose: 1 spray Documented By: CAROLINA Glucose (Glucose Gel 15 Gm Gel..Gram.) 15 gm PO Q15M PRN; Protocol PRN Reason: per Hypoglycemia Standing Ord. Heparin Sodium (Porcine) (Heparin Sodium,Porcine 5,000 Unit/Ml Vial) 5,000 unit SUBCUT Q12H [facility] Last Admin: 01/22/22 20:17 Dose: 5,000 unit Documented By: MORRINL Hydromorphone HCl (Hydromorphone Hcl 0.5 Mg/0.5 Ml Syringe) 0.5 mg IVPUSH Q3H PRN; Protocol PRN Reason: Pain, Severe (Pain Scale 7-10) Last Admin: 01/23/22 10:40 Dose: 0.5 mg Documented By: CAROLINA Lidocaine (Lidocaine 4 % Patch Adh..Patch) 1 patch TRANSDERMA DAILY [facility]; Protocol Last Admin: 01/23/22 08:09 Dose: 1 patch Documented By: URMILA Melatonin (Melatonin 3 Mg Tablet) 6 mg PO BEDTIME PRN PRN Reason: Insomnia Multi-Ingred Cream/Lotion/Oil/Oint (Mineral Oil/Petrolatum,White 106 Gm Tube) 1 appl TOPICAL BID [facility]; Protocol Last Admin: 01/23/22 09:53 Dose: 1 appl Documented By: CAROLINA Multivitamins/Vitamin C (Multivitamin Tablet) 1 tab PO DAILY [facility] Last Admin: 01/23/22 08:31 Dose: Not Given Documented By: URMILA Non-Admin Reason: Patient Refused Nystatin (Nystatin Cream 15 Gm Tube) 1 appl TOPICAL BID [facility]; Protocol Last Admin: 01/23/22 09:53 Dose: Not Given Documented By: CAROLINA Non-Admin Reason: Med Not Available Nystatin (Nystatin Oral Susp 500,000 Unit/5 Ml Oral.Susp) 200,000 unit PO QID [facility]; Protocol Last Admin: 01/23/22 08:09 Dose: 200,000 unit Documented By: URMILA Ondansetron HCl (Ondansetron Hcl 4 Mg/2 Ml Vial) 4 mg IVPUSH Q8H PRN PRN Reason: Nausea and Vomiting Last Admin: 01/23/22 08:15 Dose: 4 mg Documented By: URMILA Oxybutynin Chloride (Oxybutynin Chloride Er 5 Mg Tab.Er.24) 10 mg PO DAILY [facility] Last Admin: 01/23/22 08:07 Dose: 10 mg Documented By: URMILA Oxycodone HCl (Oxycodone Hcl Immed Release 5 Mg Tablet) 10 mg PO Q6H [facility] Last Admin: 01/23/22 05:20 Dose: 10 mg Documented By: NAYELI Pharmacy Consult (Consult Rx Perform Med Rec) 1 each MISCELLANE ONCE PRN PRN Reason: Consult order Senna/Docusate Sodium (Sennosides/Docusate Sodium Tablet) 2 tab PO DAILY PRN PRN Reason: Constipation Sodium Chloride (0.9 % Sodium Chloride Flush 3 Ml Syringe) 3 ml IVFLUSH QSHIFT [facility] Last Admin: 01/23/22 07:46 Dose: 3 ml Documented By: CAROLINA Thiamine HCl (Thiamine Hcl 100 Mg Tablet) 100 mg PO DAILY [facility] Last Admin: 01/23/22 08:08 Dose: 100 mg Documented By: ALONDRA-KLEIC Trazodone HCl (Trazodone Hcl 50 Mg Tablet) 50 mg PO BEDTIME [facility] Last Admin: 01/22/22 20:14 Dose: 50 mg Documented By: MORRINL Zinc Oxide (Zinc Oxide 20% Ointment 28.35 Gm Tube) 1 appl TOPICAL TID [facility]; Protocol Last Admin: 01/23/22 09:53 Dose: 1 appl Documented By: CAROLINA Labs CBC & Chem 7: 01/22/22 05:15 01/22/22 05:15 Labs: Laboratory Results - last 24 hr 01/22/22 01/22/22 01/22/22 10:45 15:10 19:15 POC Glucose 105 88 146 H 01/23/22 07:09 POC Glucose 74 Assessment and Plan (1) Syncope: Status: Acute Plan 66-year-old female with past medical history of metastatic ovarian cancer, enterovesicular fistula, presents to the hospital with complaints of syncopal episode and intractable midsternal pain. Found to have manubrium fracture Failure to thrive, syncope, severe protein calorie malnutrition due to metastatic ovarian cancer complicated by manubrium fracture and enterovesicular fistula fentayl patch, oxycodone, iv dilaudid for breakthrough pain barrier cream for fistula and labial irritation (not cellulitis), non operative not on chemotherapy, family not interested in hospice at this time pyuria, bacturia no evidence of sepsis has history of Enterobacter cloacae and Enterococcus faecium species sensitive to Levaquin cx showing mixed bella stopped abx DM II complicated by hypoglycemia No longer on medication, HbA1c 5.0 Likely due to decreased p.o. intake will follow POCs elevated lactic acid ?secondary to liver dysfunction r/t liver mets vs dehydration no sepsis normocytic anemia stable no evidence of bleeding DVT prophylaxis: Heparin subQ Full code Patient requires continued hospitalization: treating pain, safe dispo planning Quality Stroke Does the patient have a stroke diagnosis?: No VTE Prior VTE?: No VTE Risk Level:: Medical - moderate - high VTE Device Contraindication: Treatment Not Indicated VTE Drug Contraindication: N/A - Med Ordered
[2022-01-23 11:11] VITALS: BP 104/47; PULSE 140; RESP 17; TEMP 36; O2SAT 97
[2022-01-23 11:12] LABS: Glucose, Whole Blood 98 mg/dL (60-115)
[2022-01-23 12:00] VITALS: PULSE 101; RESP 16
--- NOTE | 2022-01-23 12:39 | MHC.CLN ---
F/U DIET=REGULAR WITH ENSURE BID. ENSURE PROVIDES ADDITIONAL 700 KCALS, 40 G PROTEIN. ACCEPTS SUPPLEMENT. INTAKE APPEARS VARIABLE, BUT USUALLY GOOD. PER ROUNDS, FAMILY DECLINES HOSPICE CARE. CONTINUE CURRENT DIET AND SUPPLEMENT. MONITOR PO INTAKE CLOSELY.
--- NOTE | 2022-01-23 13:20 | P.DS_ITS ---
DS: Providers Provider Date of Service: 01/23/22 Date of admission: 01/19/22 21:18 Primary care physician: Katalina Larson MD Consults: 01/21/22 06:16 Consult to Wound Care Routine Consulting Provider: Cary Jerez Reason for consultation: redness to yancy area Has provider been notified: No DS: Diagnosis Discharge Diagnosis (1) Syncope: Status: Acute DS: Summary Hospital Course Hospital Course: from initial hpi: Chief Complaint: pain, fall This is a 63-year-old female with past medical history of diabetes, history of uterine cancer with advanced metastasis, inter vesicular fistula,With fecal contents in urine who presents to the hospital after a fall.? Patient reports that she fell out of bed, loss consciousness for few seconds but does not remember anything surrounding the episode.? According to her son she fell on his arms her loss of consciousness lasts seconds and she came about with no confusion, no seizure-like activity.? Patient is complaining of midsternal 10/10 chest pain, left shoulder pain, as well as suprapubic pain.? The mid sternal pain as well as shoulder pain started after a fall.? She has had suprapubic pain for past 1 week.? She reports urinary incontinence, Stool in urine reports burning on urination.? And excruciating and swelling labia. Patient denies any fever but feels chills, denies any shortness of breath, no cough, no headache or change in vision, no abdominal pain nausea, no vomiting or diarrhea.? No constipation. On arrival to the ED patient hemodynamically stable Labs are significant for WBC count of 10.5, hemoglobin of 10.5, lactic acid of 2.7, albumin of 1.9, UA positive for nitrites, leukocyte Estrace, WBC.? Abdominal CT shows subtle lucency in cortical step-off in the manubrium suspicious for nondisplaced mandibular fracture.? Extensive metastatic malignancy with numeral bilateral pulmonary nodules, hepatic metastasis, metastasis on the left supraclavicular chain, suspected peritoneal metastasis and ill-defined soft tissue masses in the pelvis extending through the ventral lower abdomen wall incision site.? Findings of anterior fascicular fistula. On review of previous discharge, was noted that patient was not a surgical date for correction of the anterior fascicular fistula Patient has had intractable pain despite multiple round and medications. Patient will be admitted for further management and pain control hospital course: Patient was admitted with syncope, failure to thrive, severe protein calorie malnutrition due to metastatic ovarian cancer complicated by manubrium fracture after the fall and enterovesicular fistula. Initially she was start antibiotics for pyuria bacteriuria, however culture grew mixed bella antibiotics were discontinued. She was evaluated for her labial irritation which was felt not to be cellulitis, rather chemical irritation, barrier cream was recommended. Her pain was controlled with fentanyl, oxycodone, IV Dilaudid which will be converted to p.o. on discharge. Patient is not actively following with Oncology and due to advanced disease considered and not likely to benefit from disease directed treatment, hospice was recommended, however, family not interested at this time as they would like to continue coming to the hospital for treatment for dehydration or infection that may come up. Patient will be discharged home with VNA services. Time Spent with Patient Time attestation: Total time spent providing and/or coordinating discharge services: Discharge coordination time: Greater than 30 minutes Quality: Safe Use of Opioids Does Pt have an Active Cancer Diagnosis on the Problem List?: Yes Opioid Measure Date for [facility] Report: 12/24/21 Opioid Measure Time for [facility] Report: 13:20 Quality: Stroke Does the patient have a stroke diagnosis?: No Physical Exam Vital Signs: Vital Signs: Last Vital Signs Temp 96.8 F 01/23/22 11:11 Pulse 101 H 01/23/22 12:00 Resp 16 01/23/22 12:00 BP 104/47 L 01/23/22 11:11 Pulse Ox 97 01/23/22 11:11 O2 Del Method 01/23/22 11:11 BMI result Body Mass Index 18.1 General: AO X 3, frail, in pain Resp: diminished bilateral, no accessory muscles used CVS: S1,S2,RRR GI: soft, non tender, non distended Neuro: motor grossly intact, alert Psych: appropriate affect, appropriate insight DS: Data Data Completed and Pending Completed studies during hospitalization [Text1]: Procedures Insertion of Infusion Device into Superior Vena Cava, Percutaneous Approach (05/03/21) Transfusion of Nonautologous Red Blood Cells into Peripheral Vein, Percutaneous Approach (10/02/21) Labs on day of discharge: Laboratory Results - last 24 hr 01/22/22 01/22/22 01/23/22 15:10 19:15 07:09 POC Glucose 88 146 H 74 01/23/22 11:05 POC Glucose 98 Preliminary micro results at discharge 01/19/22 14:11 Blood Culture - Preliminary Blood - Venous No growth after 48 hours. 01/19/22 14:08 Blood Culture - Preliminary Blood - Venous No growth after 48 hours. Discharge Plan Discharge Patient Disposition: Home Health Service Discharge Diagnosis: malnutrition Referrals: Katalina Larson MD [Primary Care Provider] - 1 Week Discharge Medications: New Dermacerin Cream 1 appl topical BID Qty: 454 0RF Protocol: Apply to: Apply to: vaginal area zinc oxide 20 % Ointment 1 appl topical TID Qty: 425 0RF Protocol: Apply to: Apply to: groin hydromorphone 2 mg tablet 2 mg PO Q6H PRN (Reason: severe pain (scale score 7-10)) Qty: 30 0RF Rx Instructions: Partial Fill upon patient request. Continued melatonin 5 mg tablet 1 tab PO BEDTIME PRN (Reason: Insomnia) acetaminophen 325 mg tablet 3 tab PO Q6H PRN (Reason: mild pain) sennosides-docusate sodium [Senna Plus] 8.6-50 mg tablet 2 tab PO DAILY PRN (Reason: Constipation) Label Comments: PER PATIENT: DOES NOT TAKE REGULARLY fentanyl 25 mcg/hr patch 72 hour 1 patch topical Q3D Label Comments: per patient: removed patch yesterday. no patch currently on trazodone 50 mg tablet 50 mg PO BEDTIME oxybutynin chloride 10 mg tablet extended release 24 hr 1 tab PO DAILY thiamine HCl (vitamin B1) 100 mg tablet 1 tab DAILY fluticasone propionate 50 mcg/actuation spray,suspension 1 spray intranasal DAILY oxycodone 5 mg tablet 5 mg PO DAILY PRN (Reason: Pain, Mild) fentanyl 12 mcg/hr patch 72 hour 1 patch topical Q3D oxycodone 10 mg tablet 10 mg PO Q8H multivitamin with folic acid [Daily-Beltran (with folic acid)] 400 mcg tablet 1 tab PO DAILY naloxone 4 mg/actuation spray,non-aerosol 1 spray INTRANASAL Q5M PRN (Reason: Opioid Overdose) Discharge Orders: Discharge Order (Routine); Ordered 01/23/22 Ordered By: Harish Smiley Diet: advance to usual diet Activity on Discharge: As tolerated Stand Alone Forms: Patient Portal Discharge page Care Plan Goals: avoid hospitalizations Health Concerns: advanced metastatic ovarian cancer with severe protein calorie malnutrition Plan of Treatment: barrier cream, pain meds as needed, consider palliative care Assessment: see above
--- NOTE | 2022-01-23 13:34 | MHC.CM.PN ---
CASE DISCUSSED W/NURSING AND HOSPITALIST, PT CONT TO DECLINE HOSPICE HOWEVER ARE OPEN TO PALLIATIVE CARE, PT ACTIVE W/HVNA AND HVNA UPDATED VIA [facility], D/C HOME W/RESUMPTION OF SERVICES AND ANTIC NEW PALLIATIVE CARE, TRANSPORT HOME BLS VIA [facility].
== END 2022-01-23 15:09 | disposition home health service (06) | DRG 564 ==
LOC: HO.ED 19:51 → HO.EDOVER 21:31 → HO.S3 01-20 03:37
PROVIDERS: Nurse Practitioner Acute Care; Physician Assistant Medical; Admitting Provider Internal Medicine; Emergency Provider Student in an Organized Health Care Education/Training Program; PCP Pediatrics; Visit Provider Internal Medicine
DX: S22.21XA Fracture of manubrium, initial encounter for closed fracture (principal); E43 Unspecified severe protein-calorie malnutrition; Z68.1 Body mass index [BMI] 19.9 or less, adult; N32.1 Vesicointestinal fistula; C56.9 Malignant neoplasm of unspecified ovary; C78.02 Secondary malignant neoplasm of left lung; C78.01 Secondary malignant neoplasm of right lung; C78.7 Secondary malignant neoplasm of liver and intrahepatic bile duct; C77.0 Secondary and unspecified malignant neoplasm of lymph nodes of head, face and neck; C79.51 Secondary malignant neoplasm of bone; W06.XXXA Fall from bed, initial encounter; D63.0 Anemia in neoplastic disease; R62.7 Adult failure to thrive; E11.649 Type 2 diabetes mellitus with hypoglycemia without coma; E86.0 Dehydration; Z20.822 Contact with and (suspected) exposure to COVID-19; Z91.041 Radiographic dye allergy status; Z88.0 Allergy status to penicillin; Z79.51 Long term (current) use of inhaled steroids; Z79.899 Other long term (current) drug therapy
CPT/HCPCS: 36415; 70450; 71250; 72125; 74176; 80048; 80053; 81001; 82947; 83036; 83605; 85025; 85027; 85610; 87040; 87086; 87635; 92526; 92610; 93005; 96361; 96374; 96376; 97163; 97530; 99284; 99285; J0696; J1170; J1956; J2405; J3010

== ENCOUNTER 2022-02-04 13:53 | Inpatient (IN) | payer OTHER, SELFPAY ==
--- NOTE | 2022-02-04 | ECG_ITS ---
Test Reason : weakness/ hypertention Blood Pressure : / mmHG Vent. Rate : 126 BPM Atrial Rate : 126 BPM P-R Int : 096 ms QRS Dur : 060 ms QT Int : 286 ms P-R-T Axes : 067 006 -61 degrees QTc Int : 414 ms Sinus tachycardia with short DC Low voltage QRS Septal infarct , age undetermined Abnormal ECG When compared with ECG of 19-JAN-2022 13:28, Premature supraventricular complexes are no longer Present Nonspecific T wave abnormality, worse in Anterolateral leads Referred By: Generic ED Physician Electronically Signed By:GHADA PENA MD
--- NOTE | ~2022-02-04 | CT_ITS ---
EXAMINATION: CT ABDOMEN AND PELVIS WITHOUT CONTRAST CLINICAL INFORMATION: Right lower quadrant abdominal pain. Prior reports indicate history of ovarian cancer. COMPARISON: Previous CT of the abdomen and pelvis January 2022 TECHNIQUE: Multidetector volumetric imaging was performed from the superior aspect of the liver through the pubic symphysis. Sagittal and coronal reformatted images were obtained on the technologist's workstation. This CT examination was performed using dose optimization techniques as appropriate, variously including the following: *Automated exposure control *Adjustment of mA and/or kV according to patient size (this includes techniques or standardized protocols for targeted exams where dose is matched to indication/reason for exam; i.e. extremities or head) *Use of iterative reconstruction technique DLP: 385 mGy-cm FINDINGS: LUNG BASES: Small bilateral pleural effusions. LIVER, GALLBLADDER, AND BILIARY TREE: The liver is enlarged. There are multiple liver lesions suggestive of metastatic disease. This does not appear appreciably changed. The gallbladder has been removed. There is no biliary duct dilatation. PANCREAS: Unremarkable. SPLEEN: Unremarkable. ADRENAL GLANDS: Unremarkable. KIDNEYS AND URETERS: There is left-sided hydronephrosis and ureteral dilatation. This does not appear appreciably changed. There is a stable 2 cm right renal cyst. BLADDER: Bladder is thick-walled and contains air. This is unchanged from previous exam. The posterior wall of the bladder cannot be from the uterus. The anterior wall of the bladder cannot be with multiple abdominal wall soft tissue masses. This is unchanged. GASTROINTESTINAL TRACT: There are postsurgical changes to the sigmoid colon. There is increased soft tissue at the surgical staple line. This is inseparable from the air in the vagina. There is diverticulosis of the colon. There are postsurgical changes to the small bowel. The small bowel distention Comparison. Fluid-filled. This is unchanged. All amount of ascites. ABDOMINAL WALL: There are postsurgical changes to the abdominal wall. There are multiple abdominal wall soft tissue masses suggestive of metastatic disease. Largest the anterior wall of the bladder. LYMPH NODES: There are enlarged retroperitoneal lymph nodes in the abdomen that appear unchanged. Largest lymph node is a level of the left kidney and measures 2 cm. There are enlarged bilateral inguinal lymph nodes. This appears unchanged. VASCULAR: There is evidence of atherosclerotic disease. PELVIC VISCERA: The uterus has been removed. There is air in the vagina. Posterior wall of the bladder is inseparable from the anterior wall of the vagina and again possible fistula should be considered. OSSEOUS STRUCTURES: There are degenerative changes of the spine. CT/CT abdomen pelvis wo con IMPRESSION: Stable findings from 01/19/2022. Enlarged liver and extensive metastatic disease. Enlarged retroperitoneal and bilateral inguinal lymph nodes. Left hydronephrosis. Abnormal appearing bladder which is thick-walled and contains air. Posterior wall of the bladder is continuous with the anterior wall of the vagina which also contains air. Anterior wall of the bladder is continuous with anterior abdominal wall soft tissue masses. Again, neoplasm and possible fistula should be considered. Small amount of ascites. Fleischner guidelines were followed.
--- NOTE | ~2022-02-04 | US_ITS ---
EXAMINATION: US VENOUS ULTRASOUND WITH DOPPLER LOWER EXTREMITY, BILATERAL CLINICAL INFORMATION: Swelling. COMPARISON: None TECHNIQUE: Ultrasound of the deep veins is performed from the hip to the calf with compression sonography and color and pulse Doppler assessment. Spectral analysis with color-flow imaging is performed. FINDINGS: Exam limited by pitting edema and lymphadenopathy. There are enlarged lymph nodes in both the right and left groin. Largest lymph node in left groin measuring 1.5 cm in short axis diameter. Largest lymph node in the right groin also measures 1.5 cm in short axis diameter. RIGHT: Partial vascular flow with partial thrombus in the common femoral vein into the proximal superficial femoral vein. No vascular flow present in the greater saphenous vein. Normal vascular flow in the distal femoral vein, popliteal vein as well as vascular flow in the posterior tibial vein and peroneal vein of the calf. LEFT: There is normal venous compression and respiratory variation and augmented flow. The visualized common femoral vein, superficial femoral vein, profunda femoral vein, popliteal vein, and the trifurcation region shows no evidence of deep venous thrombosis. Popliteal fossa cyst in the left measuring 2.7 x 2.2 cm. If the patient's symptoms persist, followup ultrasound in 5 days 7 days might be of value to exclude proximal propagation from a non-visualized calf vein. US/US venous duplex LE BI IMPRESSION: 1. Right lower extremity. Partial thrombus in the common femoral vein extending into the superficial femoral vein. Thrombus of the greater saphenous vein. 2. Left lower extremity: No evidence of deep vein thrombosis. 3. Lymphadenopathy in the groin bilaterally. This critical result was discussed with Dr Light on 02/07/2022, 5:05 PM and it was ascertained that the content and urgency of the report was understood at the time of direct communication.
--- NOTE | ~2022-02-04 | CT_ITS ---
EXAMINATION: CT CHEST WITHOUT CONTRAST CLINICAL INFORMATION: Diminished breath sounds. Failure to thrive. COMPARISON: Previous chest CT most recent 01/19/2022 TECHNIQUE: Multidetector volumetric CT imaging of the chest was done. Axial MIP volume rendering provided. Sagittal and coronal reformatted images were obtained. This CT examination was performed using dose optimization techniques as appropriate, variously including the following: *Automated exposure control *Adjustment of mA and/or kV according to patient size (this includes techniques or standardized protocols for targeted exams where dose is matched to indication/reason for exam; i.e. extremities or head) *Use of iterative reconstruction technique DLP: 163 mGy-cm FINDINGS: DIRECTIONAL DRILLER: Increasing right lower lobe nodule LUNGS: There are innumerable bilateral pulmonary nodules. Largest pulmonary nodule in the right lower lobe measures 1.7 x 2.4 cm may be slightly increased from 1.5 x 2 cm 01/19/2022 exam. MEDIASTINUM: There or enlarged left lower cervical or supraclavicular lymph nodes that appear stable. Largest lymph node measures 1.9 x 2.8 cm. There are is an enlarged subcarinal mediastinal lymph node that appears stable. Conglomerate micheline mass measures approximately 2 x 3 cm. The heart size is normal. There is no pericardial effusion. There is coronary artery calcification. There is a right upper extremity PICC line with tip projecting over the SVC. PLEURA: There are new or increasing bilateral pleural effusions. AXILLA: No lymphadenopathy. UPPER ABDOMEN: Unremarkable. OSSEOUS STRUCTURES: There are degenerative changes of the spine. There is question of a nondisplaced fracture of the superior manubrium. This is similar to previous exam. CT/CT chest wo con IMPRESSION: Bilateral pulmonary nodules. Largest pulmonary nodule in the right lower lobe is slightly increased in size from exam from earlier this month. New small bilateral pleural effusions. Stable left lower cervical or supraclavicular and mediastinal lymphadenopathy. Stable question nondisplaced fracture of the superior manubrium. Fleischner guidelines were followed.
[2022-02-04 14:04] VITALS: BP 189/140; PULSE 127; RESP 20; TEMP 37.6; O2SAT 97; BMI 15.5
[2022-02-04 14:26] LABS: MANUAL DIFF FLAG NO
[2022-02-04 14:41] LABS: Anion Gap 11 (12-20); Blood Urea Nitrogen 8 mg/dL (9-16); Calcium 7.1 mg/dL (8.4-10.2); Carbon Dioxide 27 mmol/L (22-29); Chloride 100 mmol/L (96-108); Creatinine Clr Calc Pharmacy 50.8; Estimated Glomerular Filt Rate > 60; Glucose Random 74 mg/dL (60-115); Potassium 4.5 mmol/L (3.3-5.1); Sodium 133 mmol/L (135-145)
[2022-02-04 14:48] LABS: Basophils Percent Auto 0.3 % (0-2); Hematocrit 25.9 % (37.0-47.0); Hemoglobin 8.2 g/dl (12.0-16.0); Imm Gran Abs Auto 0.06 X10*3/uL (0.00-0.03); Imm Gran Pct Auto 0.4 % (0.0-0.4); Lymphocytes Absolute Auto 1.6 X10*3/uL (1.2-4.9); Lymphocytes Percent Auto 11.7 % (20-40); Mean Corpuscular HGB Conc 31.7 g/dl (31.0-35.0); Mean Corpuscular Hemoglobin 27.4 pg (27.0-33.0); Mean Corpuscular Volume 86.6 fL (80.0-98.0); Mean Platelet Volume 9.7 fL (9.4-12.3); Monocytes Absolute Auto 1.1 X10*3/uL (0.1-1.2); Monocytes Percent Auto 8.1 % (2-11); Neutrophils Absolute Auto 10.8 x10*3/uL (2.0-8.3); Neutrophils Percent Auto 79.5 % (45-73); Platelet Count 510 X10*3/uL (160-400); Red Blood Count 2.99 X10*6/uL (4.20-5.50); Red Cell Distribution Width 19.5 % (11.0-16.0); White Blood Count 13.5 X10*3/uL (4.8-10.8)
--- NOTE | 2022-02-04 15:31 | ED_ITS ---
HPI - General Adult General Chief complaint: General Medical Stated complaint: hasn't eatten in three days Time Seen by Provider: 02/04/22 15:31 Source: family Mode of arrival: ambulatory Limitations: no limitations History of Present Illness HPI narrative: 67-year-old female with a history of ovarian cancer s/p chemotherapy (no longer on treatment), hx recurrent SBO and multiple abdominal surgeries on previously on TPN, rectovaginal fistula, history of Staph bacteremia due to PICC line infection, diabetes who presents? With her with complaints that patient has not been eating or drinking over the past 2 days. Also tells me that he noticed that patient has sores in her mouth. In a rash in her perineal area. He tells me she has been altered in not acting her usual self. Patient is unable to provide any history due to mental status, has been tells me that this is her normal mental status she is usually sleepy, minimally responsive. Unable to obtain an accurate review of systems from patient. Related Data Home Medications Medication Instructions Recorded Confirmed melatonin 5 mg tablet 1 tab PO BEDTIME PRN Insomnia 05/03/21 01/19/22 acetaminophen 325 mg tablet 3 tab PO Q6H PRN mild pain 10/02/21 01/19/22 fentanyl 25 mcg/hr transdermal 1 patch topical Q3D 10/02/21 01/19/22 patch sennosides 8.6 mg-docusate sodium 2 tab PO DAILY PRN Constipation 10/02/21 01/19/22 50 mg tablet (Senna Plus) fentanyl 12 mcg/hr transdermal 1 patch topical Q3D 01/19/22 01/19/22 patch fluticasone propionate 50 1 spray intranasal DAILY 01/19/22 01/19/22 mcg/actuation nasal spray,suspension multivitamin with folic acid 400 1 tab PO DAILY 01/19/22 01/19/22 mcg tablet (Daily-Beltran (with folic acid)) naloxone 4 mg/actuation nasal spray 1 spray intranasal Q5M PRN Opioid 01/19/22 01/19/22 Overdose oxybutynin chloride 10 mg 1 tab PO DAILY 01/19/22 01/19/22 tablet,extended release 24 hr oxycodone 10 mg tablet 10 mg PO Q8H 01/19/22 01/19/22 oxycodone 5 mg tablet 5 mg PO DAILY PRN Pain, Mild 01/19/22 01/19/22 thiamine HCl (vitamin B1) 100 mg 1 tab DAILY 01/19/22 01/19/22 tablet trazodone 50 mg tablet 50 mg PO BEDTIME insomnia 01/19/22 01/19/22 Previous Rx's Medication Instructions Recorded hydromorphone 2 mg tablet 2 mg PO Q6H PRN severe pain (scale 01/23/22 score 7-10) #30 tabs white petrolatum-mineral oil 1 appl topical BID #454 grams 01/23/22 topical cream (Dermacerin) zinc oxide 20 % topical ointment 1 appl topical TID #425 grams 01/23/22 Allergies Allergy/AdvReac Type Severity Reaction Status Date / Time Iodinated Contrast Media Allergy Severe DIFF.BREATH Verified 06/11/21 13:16 [IV Dye, Iodine Containing] ING Penicillins AdvReac Mild PASSED OUT Verified 06/11/21 13:16 Environmental Allergy Mild ITCHY Uncoded 05/04/20 16:02 EYES/RUNNY NOSE DYE Allergy Unknown Unknown Uncoded 05/03/21 16:31 PENICILLIN G Allergy Unknown Unknown Uncoded 05/03/21 16:31 Review of Systems Review of Systems: Yes Unobtainable due to mental status [facility] Past Medical History Attestation statement: The following information was validated with the patient. Source: old records reviewed and nursing notes reviewed Medical History Acute UTI Arthritis Bacteremia Diabetes Enterovesical fistula On total parenteral nutrition Osteoporosis Pelvic cancer Rectovaginal fistula Surgical History History of colon resection Hx of cholecystectomy Family History Family History (Updated 01/20/22 @ 06:22 by Maribel Edward MD) Other No family history of coronary artery disease Social History Social History Household Members: Spouse Housing: House Do you presently have visiting nurse or other home services: Yes Alcohol intake: never Patient Tobacco Use Status: Never used Tobacco Advance Directives: Yes Advance Directives Information Provided: No Advance Directives on File: No Advance Directives Date on File: 05/04/21 service: No Current occupational status: unemployed and retired Physical Exam ED Vital Signs: Vital Signs - 24 hr 02/04/22 14:04 02/04/22 15:55 02/04/22 18:16 Temperature 99.6 F 99.9 F 99 F Pulse Rate 127 H 108 H 106 H Respiratory Rate 20 18 20 Blood Pressure 189/140 H 109/55 L 116/50 L Pulse Oximetry 97 98 100 Oxygen Delivery Method Room Air Room Air Room Air 02/04/22 21:38 02/04/22 23:10 Temperature Pulse Rate 94 92 Respiratory Rate 18 18 Blood Pressure 105/52 L 101/47 L Pulse Oximetry 95 97 Oxygen Delivery Method Room Air Room Air BMI result Body Mass Index 15.5 so patient is noted to be hypertensive, tachycardic with a low-grade fever Appearance: Alert to verbal stimuli.? No acute distress.?Frail appearing. Head: Normocephalic, atraumatic, no step-offs or deformities Eyes: Pupils equal, round and reactive to light.? ENT: Pharynx normal.? Neck: Normal inspection.? Neck supple.? CVS: Normal heart rate and rhythm.? Pulses normal.? Respiratory: No respiratory distress.? Breath sounds diminished b/l.? Abdomen: Soft and + tender diffusely worse in RLQ .? Skin: Skin warm and dry.? Normal skin color.? Normal skin turgor.?Diaphoretic Extremities: No lower extremity edema.? No calf ttp. 5/5 strength to bilateral upper and lower extremities Back: No midline tenderness, no C-spine tenderness, full range of motion, no CVA tenderness bilaterally Neuro: Alert to verbal stimuli. No motor deficit.? No sensory deficit Course Reevaluation(s) Reevaluation #1: Patient noted to have a slight leukocytosis, a baseline anemia that does not require intervention, platelets slightly elevated 510. chemistry with a slightly low sodium 133, no other electrolyte abnormalities requiring intervention, Calcium 7.1. Time: 17:11 Reevaluation #2: patient is noted to be hypotensive, tachycardic, at this time infection is suspected. Fluids as well as ceftriaxone empiric antibiotics will be ordered. Time: 17:18 Reevaluation #3: Patient is noted to have a low albumin likely secondary to poor p.o. intake. Patient's alk-phos is noted to be significantly elevated, patient does have a history of malignancy, this could signify metastasis to bone. Patient is also noted to have lactic acidosis, she is being covered with fluids and empiric antibiotics Time: 17:58 Additional Reevaluation(s): 2100 Will be admited to the hospitalist team for evaluation for failure to thrive, physical deconditioning, hypoalbuminemia, possible metastasis to bones. Medical Decision Making [facility] Narrative Medical decision making narrative: 1536 67-year-old female presents with poor p.o. intake, failure to thrive, altered mental status, ulcerations within the mouth and rash to the perineal area x2 days. Physical examination significant for apthous ulcers on the tongue, lips, angular chelitis, diminished breath sounds bilaterally, regular rate and rhythm, neuro exam with patient awake to verbal stimuli. Patient appears frail, thin. Plan at this time is to obtain CT scans of the chest, abdomen and pelvis, basic laboratory studies, EKG. Medical Records Medical records reviewed: Yes I reviewed the patient's medical records. Lab Data Lab results reviewed: Yes I reviewed the patient's lab results. Result diagrams: 02/04/22 14:19 02/04/22 14:19 Labs: Lab Results 02/04/22 02/04/22 02/04/22 Range/Units 14:19 14:19 17:35 WBC 13.5 H (4.8-10.8) X10*3/uL RBC 2.99 L (4.20-5.50) X10*6/uL Hgb 8.2 L (12.0-16.0) g/dl Hct 25.9 L (37.0-47.0) % MCV 86.6 (80.0-98.0) fL MCH 27.4 (27.0-33.0) pg MCHC 31.7 (31.0-35.0) g/dl RDW 19.5 H (11.0-16.0) % Plt Count 510 H D (160-400) X10*3/uL MPV 9.7 (9.4-12.3) fL Immature Gran % (Auto) 0.4 (0.0-0.4) % Neut % (Auto) 79.5 H (45-73) % Lymph % (Auto) 11.7 L (20-40) % [place] % (Auto) 8.1 (2-11) % Eos % (Auto) 0.0 (0-4) % Baso % (Auto) 0.3 (0-2) % Lymph # (Auto) 1.6 (1.2-4.9) X10*3/uL [place] # (Auto) 1.1 (0.1-1.2) X10*3/uL Eos # (Auto) 0.0 (0.0-0.4) X10*3/uL Baso # (Auto) 0.0 (0.0-0.2) X10*3/uL Abs Immat Gran (auto) 0.06 H (0.00-0.03) X10*3/uL Absolute Neuts (auto) 10.8 H (2.0-8.3) x10*3/uL Absolute Nucleated RBC 0.000 (0.0-0.012) X10*3/uL Nucleated RBC % (auto) 0.0 (0.0-0.2) /100WBC Sodium 133 L (135-145) mmol/L Potassium 4.5 (3.3-5.1) mmol/L Chloride 100 (96-108) mmol/L Carbon Dioxide 27 (22-29) mmol/L Anion Gap 11 L (12-20) BUN 8 L (9-16) mg/dL Creatinine 0.63 (0.5-1.4) mg/dL Estim Creat Clear Calc 50.8 Estimated GFR > 60 Random Glucose 74 (60-115) mg/dL Lactic Acid 2.1 H* (0.5-2.0) mmol/L Calcium 7.1 L (8.4-10.2) mg/dL Total Bilirubin 0.5 (0.0-1.0) mg/dL Direct Bilirubin 0.4 (0.0-0.5) mg/dL AST 65 H (5-31) U/L ALT 15 (0-31) U/L Alkaline Phosphatase 1410 H (39-117) U/L Total Protein 7.0 (6.5-8.0) g/dL Albumin 1.5 L D (3.5-5.0) g/dL ECG Data Attestation: I personally reviewed and interpreted this ECG as follows: Prior ECG tracings: available for review Interpretation: Ventricular rate of 126, DC normal, QRS normal, QT / QTC normal. EKG shows sinus tachycardia, no ST elevations or inversions concerning for ischemia. No significant changes when compared to EKG of January 2022 Critical Care Time Critical Care Time Critical Care Time: No Discharge Plan Discharge Clinical Impression: Physical deconditioning, Weakness, Hypoalbuminemia Patient Disposition: Admitted As Inpatient
[2022-02-04 15:55] VITALS: BP 109/55; PULSE 108; RESP 18; TEMP 37.7; O2SAT 98
[2022-02-04 16:04] LABS: Alanine Aminotransferase 15 U/L (0-31); Albumin Level 1.5 g/dL (3.5-5.0); Alkaline Phosphatase 1410 U/L (39-117); Aspartate Amino Transferase 65 U/L (5-31); Bilirubin Direct 0.4 mg/dL (0.0-0.5); Bilirubin Total 0.5 mg/dL (0.0-1.0)
[2022-02-04] MEDS: Morphine Sulfate 4 MG/ML CARTRIDGE IVPUSH (17:25)
[2022-02-04] MEDS: 0.9 % Sodium Chloride 1,000 ML 999 ML IV ×2 (17:28→21:37)
[2022-02-04 17:56] LABS: Lactic Acid 2.1 mmol/L (0.5-2.0)
[2022-02-04] MEDS: cefTRIAXone sodium 1 GM in 0.9 % Sodium Chloride 50 ML IV (18:01)
[2022-02-04 18:16] VITALS: BP 116/50; PULSE 106; RESP 20; TEMP 37.2; O2SAT 100
[2022-02-04 19:40] LABS: Reflex Lactate? Lactic Acid Added
[2022-02-04] MEDS: Albumin Human 25 % 100 ML IV ×2 (19:48→21:36)
--- NOTE | 2022-02-04 20:37 | PC.NURSE ---
Daughter (Noemy) left @20:40. Phone #: . Wants updates on pt's status
[2022-02-04 21:38] VITALS: BP 105/52; PULSE 94; RESP 18; O2SAT 95
--- NOTE | 2022-02-04 21:40 | PC.NURSE ---
Pt medicated per MAR Pt tolerating albumin and IVF. 2nd IVF infusing Pt very hard stick. Unable to get 2nd blood cultures. Dr. Walter made aware and ok with just 1 set of culture in lab. Will continue to monitor
[2022-02-04 23:10] VITALS: BP 101/47; PULSE 92; RESP 18; O2SAT 97
--- NOTE | 2022-02-04 23:21 | P.HPHOSP_ITS ---
History of Present Illness Date of Service: 02/04/22 Chief Complaint: Poor oral intake 67-year-old female with a past medical history of diabetes, ovarian cancer with metastasis, history of enterovesical fistula, recurrent UTIs, history of SBO, severe protein calorie malnutrition, recent admission to the hospital for adult failure to thrive/fall; presented to the hospital today with a chief complaint of generalized weakness/not feeling well. Most of the history provided with the patient and patient's family at bedside. Reportedly patient has been not doing well over the past 2 days. Also mentioned patient has decreased oral intake and has not be eating well. Mentions she has difficulty swallowing secondary to pain in the mouth. Patient also reports having abdominal discomfort, denies any nausea vomiting or diarrhea. Reports subjective fevers. Patient's daughter mentioned that patient was planned to be on chronic suppressive antibiotics but has not been started yet. Review of all other systems is negative except mentioned above ER course: Per ER team patient on presentation noted to have low-grade temperature 9 informed right, mild abdominal tenderness; CT scan of the abdomen showed no acute change in her chronic intra-abdominal findings. Urinalysis was pending. Patient noted to have tachycardia and mild leukocytosis; patient was empirically given ceftriaxone. Also noted to have albumin 1.5-> received IV albumin, severely elevated [id number] to be worsening cancer. Admitted to the hospital for further management. [facility] Medical History (Updated 03/22/22 @ 23:13 by Jose J Rai MD) Acute UTI Anemia Arthritis Bacteremia Diabetes DVT (deep venous thrombosis) Enterovesical fistula Hypoalbuminemia On total parenteral nutrition Osteoporosis Pelvic cancer Physical deconditioning Rectovaginal fistula Weakness Family History Other No family history of coronary artery disease Surgical History History of colon resection Hx of cholecystectomy Social History Household Members: Spouse Housing: Apartment Do you presently have visiting nurse or other home services: Yes (3x/wk) Alcohol intake: never Patient Tobacco Use Status: Never used Tobacco Advance Directives Date on File: 05/04/21 service: No Current occupational status: unemployed and retired Meds Allergies Allergy/AdvReac Type Severity Reaction Status Date / Time Iodinated Contrast Media Allergy Severe DIFF.BREATH Verified 03/02/22 05:07 [IV Dye, Iodine Containing] ING Penicillins AdvReac Mild PASSED OUT Verified 03/02/22 05:07 Environmental Allergy Mild ITCHY Uncoded 03/02/22 05:07 EYES/RUNNY NOSE PENICILLIN G Allergy Unknown Unknown Uncoded 03/02/22 05:07 Active Medications: Current Medications Heparin Sodium (Porcine) (Heparin Sodium,Porcine 5,000 Unit/Ml Vial) 5,000 unit SUBCUT Q12H MARY Hydromorphone HCl (Hydromorphone Hcl 0.5 Mg/0.5 Ml Syringe) 0.25 mg IVPUSH Q4H PRN; Protocol PRN Reason: Breakthrough Pain Dextrose/Sodium Chloride (D5ns) 1,000 mls @ 75 mls/hr IVCONT .[id number] MARY Melatonin (Melatonin 3 Mg Tablet) 6 mg PO BEDTIME PRN PRN Reason: Insomnia Nystatin (Nystatin Oral Susp 500,000 Unit/5 Ml Oral.Susp) 400,000 unit PO QID MARY; Protocol Sodium Chloride (0.9 % Sodium Chloride Flush 3 Ml Syringe) 3 ml IVFLUSH QSHIFT MARY Home Medications Medication Instructions Recorded Confirmed Last Taken Type fentanyl 25 mcg/hr transdermal 1 patch topical Q3D 10/02/21 03/02/22 02/02/22 History patch sennosides 8.6 mg-docusate sodium 2 tab PO DAILY PRN Constipation 10/02/21 03/02/22 Unknown History 50 mg tablet (Senna Plus) fluticasone propionate 50 1 spray intranasal DAILY 01/19/22 03/02/22 Unknown History mcg/actuation nasal spray,suspension oxybutynin chloride 10 mg 1 tab PO DAILY 01/19/22 03/02/22 Unknown History tablet,extended release 24 hr thiamine HCl (vitamin B1) 100 mg 1 tab DAILY 01/19/22 03/02/22 Unknown History tablet trazodone 50 mg tablet 50 mg PO BEDTIME insomnia 01/19/22 03/02/22 Unknown History zinc oxide-cod liver oil topical 1 ea topical TID 02/05/22 03/02/22 Unknown History ointment (Pediatric Ointment (with cod liver oil)) fentanyl 12 mcg/hr transdermal 1 patch topical Q3D 03/02/22 03/02/22 Unknown History patch melatonin 5 mg tablet 1 tab PO BEDTIME 03/02/22 03/02/22 Unknown History multivitamin with folic acid 400 1 tab PO DAILY 03/02/22 03/02/22 Unknown History mcg tablet (Daily-Beltran (with folic acid)) omeprazole magnesium 10 mg oral 20 mg PO DAILY@0630 03/02/22 03/02/22 Unknown History suspension,delayed release (Prilosec) ondansetron HCl 4 mg tablet 1 tab PO Q8H PRN Nausea 03/02/22 03/02/22 Unknown History oxycodone 10 mg tablet 1 tab PO Q8H 03/02/22 03/02/22 Unknown History Physical Exam Vital Signs and Narrative: Vital Signs: Last Vital Signs Temp 99 F 02/04/22 18:16 Pulse 92 02/04/22 23:10 Resp 18 02/04/22 23:10 BP 101/47 L 02/04/22 23:10 Pulse Ox 97 02/04/22 23:10 O2 Del Method 02/04/22 23:10 BMI result Body Mass Index 15.5 Gen: Appears be in no acute distress HEENT: NCAT, Moist mucosa. Posterior pharyngeal wall appears clear; noted to have whitish plaques on the lateral side of the tongue. Pulmonary: Vesicular breath sounds, fair air entry CVS: Normal S1-S2 Abdomen: BS+, Soft, mildly tender in the lower quadrants. Extremities: Warm well perfused Neuro: Alert and awake. Grossly nonfocal Results Labs CBC and Chem 7: 02/09/22 05:21 02/15/22 05:36 Labs: Laboratory Results - last 24 hr 02/04/22 02/04/22 02/04/22 14:19 14:19 17:35 MCV 86.6 MCH 27.4 MCHC 31.7 RDW 19.5 H Plt Count 510 H D MPV 9.7 Immature Gran % (Auto) 0.4 Neut % (Auto) 79.5 H Lymph % (Auto) 11.7 L Taylor % (Auto) 8.1 Eos % (Auto) 0.0 Baso % (Auto) 0.3 Lymph # (Auto) 1.6 Taylor # (Auto) 1.1 Eos # (Auto) 0.0 Baso # (Auto) 0.0 Abs Immat Gran (auto) 0.06 H Absolute Neuts (auto) 10.8 H Absolute Nucleated RBC 0.000 Nucleated RBC % (auto) 0.0 Anion Gap 11 L Estim Creat Clear Calc 50.8 Estimated GFR > 60 Random Glucose 74 Lactic Acid 2.1 H* Calcium 7.1 L Total Bilirubin 0.5 Direct Bilirubin 0.4 AST 65 H ALT 15 Alkaline Phosphatase 1410 H Total Protein 7.0 Albumin 1.5 L D Imaging Radiologist's Impressions: Impressions Abdomen/Pelvis CT 02/04/22 16:21 IMPRESSION: Stable findings from 01/19/2022. Enlarged liver and extensive metastatic disease. Enlarged retroperitoneal and bilateral inguinal lymph nodes. Left hydronephrosis. Abnormal appearing bladder which is thick-walled and contains air. Posterior wall of the bladder is continuous with the anterior wall of the vagina which also contains air. Anterior wall of the bladder is continuous with anterior abdominal wall soft tissue masses. Again, neoplasm and possible fistula should be considered. Small amount of ascites. Fleischner guidelines were followed. Chest CT 02/04/22 16:21 IMPRESSION: Bilateral pulmonary nodules. Largest pulmonary nodule in the right lower lobe is slightly increased in size from exam from earlier this month. New small bilateral pleural effusions. Stable left lower cervical or supraclavicular and mediastinal lymphadenopathy. Stable question nondisplaced fracture of the superior manubrium. Fleischner guidelines were followed. Assessment and Plan (1) General weakness: Status: Acute Plan 67-year-old female with a past medical history of diabetes, ovarian cancer with metastasis, history of enterovesical fistula, recurrent UTIs, history of SBO, severe protein calorie malnutrition, recent admission to the hospital for adult failure to thrive/fall; presented to the hospital today with a chief complaint of generalized weakness/not feeling well. Admitted for following Generalized weakness: Likely in setting of poor oral intake/dehydration secondary to possible oral thrush. Patient also reported subjective fevers and had low-grade temperatures in the ER associated with mild leukocytosis and tachycardia. Empirically given ceftriaxone. Patient has history of recurrent UTIs, recent admission noted to have mixed bella in the urine. Patient probably chronically colonized because of intravesical fistula. Will consult ID for further recommendations Severe protein calorie malnutrition: Patient albumin on presentation noted to be 1.5. Nutrition consult. Protein supplementation once able to tolerate p.o.. Oral thrush: Continue nystatin q.i.d.. History of ovarian cancer with metastasis: Noted to have worsening alk-phos. Hematology-Oncology follow-up. Dysphagia: Speech and swallow eval. Goals of care discussion: Spoke to the patient's family at bedside including patient's and daughter; mentioned understood about the patient's current health condition. Currently wanted to keep her full code. DVT prophylaxis: Subcu heparin Code status: Full code Quality Stroke Does the patient have a stroke diagnosis?: No VTE Prior VTE?: No VTE Risk Level:: Medical - moderate - high VTE Device Contraindication: Treatment Not Indicated VTE Drug Contraindication: N/A - Med Ordered
[2022-02-05] VITALS (13 sets, daily range): BP systolic 97–123; BP diastolic 47–58; PULSE 84–101; RESP 14–18; TEMP 36.4–37.6; O2SAT 94–99; BMI 19.5
[2022-02-05 00:09] LABS: COVID-19 Test Negative (Negative)
[2022-02-05] MEDS: Heparin Sodium,Porcine 5,000 UNIT/ML VIAL 5000 UNIT SUBCUT ×3 (00:12→23:42)
[2022-02-05] MEDS: Dextrose 5 % and 0.9 % NaCl 1,000 ML 75 ML IVCONT (00:13)
[2022-02-05 00:14] LABS: ~Lactic Acid-LAB USE ONLY 1.3 mmol/L (0.5-2.0)
[2022-02-05 05:53] LABS: MANUAL DIFF FLAG NO
[2022-02-05 06:01] LABS: Basophils Percent Auto 0.4 % (0-2); Eosinophils Absolute Auto 0.6 X10*3/uL (0.0-0.4); Eosinophils Percent Auto 5.4 % (0-4); Imm Gran Abs Auto 0.07 X10*3/uL (0.00-0.03); Imm Gran Pct Auto 0.7 % (0.0-0.4); Lymphocytes Absolute Auto 1.2 X10*3/uL (1.2-4.9); Lymphocytes Percent Auto 11.1 % (20-40); Mean Corpuscular HGB Conc 32.7 g/dl (31.0-35.0); Mean Corpuscular Hemoglobin 28.6 pg (27.0-33.0); Mean Corpuscular Volume 87.6 fL (80.0-98.0); Mean Platelet Volume 9.4 fL (9.4-12.3); Monocytes Percent Auto 9.3 % (2-11); Neutrophils Absolute Auto 7.7 x10*3/uL (2.0-8.3); Neutrophils Percent Auto 73.1 % (45-73); Platelet Count 370 X10*3/uL (160-400); Red Blood Count 2.34 X10*6/uL (4.20-5.50); Red Cell Distribution Width 19.7 % (11.0-16.0); White Blood Count 10.5 X10*3/uL (4.8-10.8)
[2022-02-05 06:20] LABS: Alanine Aminotransferase 9 U/L (0-31); Albumin Level 2.1 g/dL (3.5-5.0); Alkaline Phosphatase 947 U/L (39-117); Aspartate Amino Transferase 49 U/L (5-31); Bilirubin Direct 0.3 mg/dL (0.0-0.5); Bilirubin Total 0.5 mg/dL (0.0-1.0); Total Protein 5.9 g/dL (6.5-8.0)
[2022-02-05 06:21] LABS: Hematocrit 20.5 % (37.0-47.0); Hemoglobin 6.7 g/dl (12.0-16.0)
[2022-02-05 06:23] LABS: Anion Gap 9 (12-20); Blood Urea Nitrogen 7 mg/dL (9-16); Carbon Dioxide 26 mmol/L (22-29); Chloride 106 mmol/L (96-108); Creatinine Clr Calc Pharmacy 68.6; Estimated Glomerular Filt Rate > 60; Sodium 137 mmol/L (135-145)
[2022-02-05 06:27] LABS: Glucose Random 57 mg/dL (60-115)
[2022-02-05] MEDS: Dextrose 50 % 25 GM/50 ML SYRINGE IVPUSH (06:35)
--- NOTE | 2022-02-05 06:42 | PC.NURSE ---
at 0613 Pt had a critical hemoglobin=6.7 and hematocrit =20.5, no bleed noted, vitals WNL, pt has no apparent changes, Dr. Rai was made aware, ordered repeat stat CBC to confirm, phleb notified, at 0623 lab called for critical glucose=57, Dr. Rai was made aware, D50 ml 25gm IVpush given at 0630, repeat POC at 7936=001, repeat STAT CBC drawn, result came at 0653 with critical hemoglobin=6.4, hematocrit=20.0, Dr. Rai was made aware.
[2022-02-05 06:46] LABS: Glucose, Whole Blood 143 mg/dL (60-115)
[2022-02-05 06:49] LABS: MANUAL DIFF FLAG NO
[2022-02-05 06:52] LABS: Basophils Percent Auto 0.2 % (0-2); Eosinophils Percent Auto 0.1 % (0-4); Imm Gran Abs Auto 0.08 X10*3/uL (0.00-0.03); Imm Gran Pct Auto 0.8 % (0.0-0.4); Lymphocytes Percent Auto 9.8 % (20-40); Mean Corpuscular Hemoglobin 28.1 pg (27.0-33.0); Mean Corpuscular Volume 87.7 fL (80.0-98.0); Mean Platelet Volume 9.2 fL (9.4-12.3); Monocytes Absolute Auto 0.8 X10*3/uL (0.1-1.2); Monocytes Percent Auto 7.8 % (2-11); Neutrophils Absolute Auto 8.2 x10*3/uL (2.0-8.3); Neutrophils Percent Auto 81.3 % (45-73); Platelet Count 331 X10*3/uL (160-400); Red Blood Count 2.28 X10*6/uL (4.20-5.50); Red Cell Distribution Width 19.8 % (11.0-16.0); White Blood Count 10.1 X10*3/uL (4.8-10.8)
[2022-02-05 06:54] LABS: Hemoglobin 6.4 g/dl (12.0-16.0)
--- NOTE | 2022-02-05 07:51 | PHA.MEDREC ---
Pharmacy Consult ? Medication Reconciliation Pharmacy has reviewed the medication reconciliation completed by Zeyad. Oxybutynin, senna, thiamine and multivitamin are now confirmed. Patient reports she is only on the 25 mcg fentanyl patch and no long the 12.5 mcg patch (previously on the both). Patient also reports she does not take Oxycodone 10 mg tablets, she only use the 5 mg tablets. Lorie Macdonald, AdinaD
[2022-02-05 08:21] LABS: Immature Retic Fraction 30.8 % (3.0-15.9); Retic HGB Equivalent 30.2 pg (30.0-35.0); Reticulocyte Percent 2.6 % (0.5-1.8); Reticulocytes Absolute 0.063 X10*6/uL (0.026-0.095)
[2022-02-05 08:29] LABS: Glucose, Whole Blood 88 mg/dL (60-115)
[2022-02-05 08:37] LABS: Lactate Dehydrogenase 911 U/L (122-220)
[2022-02-05 08:58] LABS: Ferritin 295 ng/mL (10-250)
[2022-02-05] MEDS: oxyCODONE HCl Immed Release 5 MG TABLET PO (09:03)
[2022-02-05] MEDS: Thiamine HCL 100 MG TABLET PO (09:03)
[2022-02-05] MEDS: Nystatin Oral Susp 500,000 UNIT/5 ML ORAL.SUSP 400000 UNIT PO (09:04)
[2022-02-05] MEDS: Multivitamin TABLET 1 TAB PO (09:04)
[2022-02-05 09:15] LABS: Folate 15.6 ng/mL (> or = 4.0); Vitamin B12 1972 pg/mL (200-900)
--- NOTE | 2022-02-05 09:57 | MHC.CM.PN ---
Addendum entered by Rebecca Holloway 02/05/22 11:16: PT IS ACTIVE [facility], THEY WILL FOLLOW FOR DISCHARGE INFORMATION. 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
[2022-02-05] MEDS: fentaNYL 25 MCG PATCH.TD72 TRANSDERMA (10:24)
[2022-02-05 10:54] LABS: Glucose, Whole Blood 65 mg/dL (60-115)
--- NOTE | 2022-02-05 11:51 | MHC.SL.SWA ---
Speech Pathologist Impression: Risk of Aspiration Due to: Poor PO Intake Dysphasia Diet Status: Liquid Consistency and Strategies for Safe Swallow: Liquid Intake Recommendation: Thin Liquid Intake Strategies: Small Sips Solid Food Consistency: Dietary Recommendations: Pureed (NDD1) Additional Modifications to Solid Foods: Due to extensive report of oral pain by patient, she may be reluctant to take food/liquid orally at this time, and only take small amounts at any presentation of a meal. Pt will need supervision during meals to assure that she is able to tolerate eating due to currently level of reported oral pain. Would recommend providing smaller, more frequent meals to encourage PO intake. Oral Medication Intake: Crushed with Puree Please contact the pharmacy regarding appropriate crushable or liquid drug formulations that are available whenever modified delivery is recommended. Compensatory Strategies and Precautions to be Taken for Safe Swallow: Sitting Upright (90 deg) Small Bites and Sips Alternate Liquids/Solids Rate of Ingestion Change Supervision While Eating and Drinking for Safe Swallow: Total Supervision (1:1) Foods to Avoid: Difficulty to chew solids. Swallowing Recommended Treatments: Compens. Strategy Educat. Recommendation for Speech: Inpatient Speech Therapy Comment: Pt presents with extensive oral pain in jaw, lips, tongue and throat which was evident on trials of food and liquid today. Pt was able to tolerate only small amounts of thin liquid and tsps of pudding on evaluation, with evident reduced jaw opening, and pain with presence of food and liquid in mouth, pain on swallow. Due to oral pain, limited movement of jaw, limited dentition, would recommend starting patient on PUREE diet (NDD1) with THIN liquid, with Pills CRUSHED in PUREE. Note that this is significant change from baseline assessed earlier this month of Regular solids w/ thin liquids. Would recommend referral to ENT or further assessment to determine source of oral pain. MD, Dragger Out, nursing notified of recommendation by secure text. LOSS CONTROL CONSULTANT will continue to follow. Frequency/Duration: Date Range for Service Req: Timeline to reassess: Construction Project Administrator Clinican/Clinical Fellow: No Supervisory Statement: I have reviewed and agree with the student/clinical fellow's documentation: N/A Speech Language Pathologist: Lupe Mccall M.A., [facility]-LOSS CONTROL CONSULTANT
--- NOTE | 2022-02-05 12:43 | HO.PM.IMPN ---
Subjective Subjective Date of Service: 02/05/22 Interval History: This history was taken in Croatian from the patient. Pt c/o dysphagia + odynophagia. On fentanyl patch, oxycodone + hydromorphone for chronic CA pain. Consents to transfusion. Hb 6.4. Review of Systems Review of Systems: Yes all other systems are reviewed and are negative Physical Exam Vital Signs: Vital Signs: Last Vital Signs Temp 97.6 F 02/05/22 12:08 Pulse 92 02/05/22 12:08 Resp 16 02/05/22 12:08 BP 106/53 L 02/05/22 12:08 Pulse Ox 98 02/05/22 07:20 O2 Del Method 02/05/22 07:20 BMI result Body Mass Index 19.5 Gen: frail, cachectic HEENT: sclera anicteric, thrush on tongue Neck: supple Lungs: clear to auscultation bilaterally Heart: regular rate and rhythm, no murmurs Abd: soft, tender Ext: no edema Skin: warm/well-perfused Neuro: alert and oriented x3, no focal findings Psych: appropriate affect Objective Data Active Medications Dextrose (Dextrose 50 % 25 Gm/50 Ml Syringe) 25 gm IVPUSH Q15M PRN; Protocol PRN Reason: per Hypoglycemia Standing Ord. Last Admin: 02/05/22 06:35 Dose: 25 gm Documented By: TRACEY Fentanyl (Fentanyl 25 Mcg Patch.Td72) 25 mcg TRANSDERMA Q3D [facility] Last Admin: 02/05/22 10:24 Dose: 25 mcg Documented By: AMY Fluticasone Propionate (Fluticasone Propionate Nasal 16 Gm [place]) 1 spray NOSTRIL-B DAILY [facility] Glucose (Glucose Gel 15 Gm Gel..Gram.) 15 gm PO Q15M PRN; Protocol PRN Reason: per Hypoglycemia Standing Ord. Heparin Sodium (Porcine) (Heparin Sodium,Porcine 5,000 Unit/Ml Vial) 5,000 unit SUBCUT Q12H [facility] Last Admin: 02/05/22 10:24 Dose: 5,000 unit Documented By: AMY Hydromorphone HCl (Hydromorphone Hcl 0.5 Mg/0.5 Ml Syringe) 0.25 mg IVPUSH Q4H PRN; Protocol PRN Reason: Breakthrough Pain Hydromorphone HCl (Hydromorphone Hcl 2 Mg Tablet) 2 mg PO Q6H PRN PRN Reason: severe pain (scale score 7-10) Dextrose/Sodium Chloride (D5ns) 1,000 mls @ 75 mls/hr IVCONT .[id number] [facility] Last Admin: 02/05/22 00:13 Dose: 75 mls/hr Documented By: NATIVIDAD Fluconazole 100 mg/ IV (Miscellaneous Supplies) 50 mls @ 50 mls/hr IV Q24H [facility] Melatonin (Melatonin 3 Mg Tablet) 6 mg PO BEDTIME PRN PRN Reason: Insomnia Multivitamins/Vitamin C (Multivitamin Tablet) 1 tab PO DAILY [facility] Last Admin: 02/05/22 09:04 Dose: 1 tab Documented By: AMY Nystatin (Nystatin Oral Susp 500,000 Unit/5 Ml Oral.Susp) 400,000 unit PO QID [facility]; Protocol Last Admin: 02/05/22 09:04 Dose: 400,000 unit Documented By: AMY Oxybutynin Chloride (Oxybutynin Chloride Er 5 Mg Tab.Er.24) 10 mg PO DAILY [facility] Last Admin: 02/05/22 09:03 Dose: 10 mg Documented By: AMY Oxycodone HCl (Oxycodone Hcl Immed Release 5 Mg Tablet) 5 mg PO DAILY PRN PRN Reason: Pain, Mild Last Admin: 02/05/22 09:03 Dose: 5 mg Documented By: AMY Senna/Docusate Sodium (Sennosides/Docusate Sodium Tablet) 2 tab PO DAILY PRN PRN Reason: Constipation Sodium Chloride (0.9 % Sodium Chloride Flush 3 Ml Syringe) 3 ml IVFLUSH QSHIFT [facility] Last Admin: 02/05/22 08:52 Dose: Not Given Documented By: AMY Non-Admin Reason: IV Running Thiamine HCl (Thiamine Hcl 100 Mg Tablet) 100 mg PO DAILY [facility] Last Admin: 02/05/22 09:03 Dose: 100 mg Documented By: AMY Trazodone HCl (Trazodone Hcl 50 Mg Tablet) 50 mg PO BEDTIME [facility] Labs CBC & Chem 7: 02/05/22 06:44 02/05/22 05:48 Labs: Laboratory Results - last 24 hr 02/04/22 02/04/22 02/04/22 14:19 14:19 17:35 MCV 86.6 MCH 27.4 MCHC 31.7 RDW 19.5 H Plt Count 510 H D MPV 9.7 Immature Gran % (Auto) 0.4 Neut % (Auto) 79.5 H Lymph % (Auto) 11.7 L [place] % (Auto) 8.1 Eos % (Auto) 0.0 Baso % (Auto) 0.3 Lymph # (Auto) 1.6 [place] # (Auto) 1.1 Eos # (Auto) 0.0 Baso # (Auto) 0.0 Abs Immat Gran (auto) 0.06 H Absolute Neuts (auto) 10.8 H Absolute Nucleated RBC 0.000 Nucleated RBC % (auto) 0.0 Absolute Retic Percent Retic Immature Retic Fraction Retic Hgb Equivalent Anion Gap 11 L Estim Creat Clear Calc 50.8 Estimated GFR > 60 POC Glucose Random Glucose 74 Lactic Acid 2.1 H* Lactic Acid F/U @ 2Hr Calcium 7.1 L Ferritin Total Bilirubin 0.5 Direct Bilirubin 0.4 AST 65 H ALT 15 Alkaline Phosphatase 1410 H Lactate Dehydrogenase Total Protein 7.0 Albumin 1.5 L D Vitamin B12 Folate COVID-19 ([facility]) COVID-19 Clin Com Blood Type Antibody Screen Crossmatch 02/04/22 02/04/22 02/05/22 23:43 23:50 05:48 MCV 87.6 MCH 28.6 MCHC 32.7 RDW 19.7 H Plt Count 370 D MPV 9.4 Immature Gran % (Auto) 0.7 H Neut % (Auto) 73.1 H Lymph % (Auto) 11.1 L [place] % (Auto) 9.3 Eos % (Auto) 5.4 H Baso % (Auto) 0.4 Lymph # (Auto) 1.2 [place] # (Auto) 1.0 Eos # (Auto) 0.6 H Baso # (Auto) 0.0 Abs Immat Gran (auto) 0.07 H Absolute Neuts (auto) 7.7 Absolute Nucleated RBC 0.000 Nucleated RBC % (auto) 0.0 Absolute Retic 0.063 Percent Retic 2.6 H Immature Retic Fraction 30.8 H Retic Hgb Equivalent 30.2 Anion Gap Estim Creat Clear Calc Estimated GFR POC Glucose Random Glucose Lactic Acid Lactic Acid F/U @ 2Hr 1.3 Calcium Ferritin Total Bilirubin Direct Bilirubin AST ALT Alkaline Phosphatase Lactate Dehydrogenase Total Protein Albumin Vitamin B12 Folate COVID-19 ([facility]) Negative COVID-19 [employer] Com See Note Blood Type Antibody Screen Crossmatch 02/05/22 02/05/22 02/05/22 05:48 05:48 05:48 MCV MCH MCHC RDW Plt Count MPV Immature Gran % (Auto) Neut % (Auto) Lymph % (Auto) [place] % (Auto) Eos % (Auto) Baso % (Auto) Lymph # (Auto) [place] # (Auto) Eos # (Auto) Baso # (Auto) Abs Immat Gran (auto) Absolute Neuts (auto) Absolute Nucleated RBC Nucleated RBC % (auto) Absolute Retic Percent Retic Immature Retic Fraction Retic Hgb Equivalent Anion Gap 9 L Estim Creat Clear Calc 68.6 Estimated GFR > 60 POC Glucose Random Glucose 57 L* Lactic Acid Lactic Acid F/U @ 2Hr Calcium 7.0 L Ferritin 295 H Total Bilirubin 0.5 Direct Bilirubin 0.3 AST 49 H ALT 9 Alkaline Phosphatase 947 H D Lactate Dehydrogenase 911 H Total Protein 5.9 L Albumin 2.1 L D Vitamin B12 1972 H Folate 15.6 COVID-19 ([facility]) COVID-19 Clin Com Blood Type Antibody Screen Crossmatch 02/05/22 02/05/22 02/05/22 06:41 06:44 08:24 MCV 87.7 MCH 28.1 MCHC 32.0 RDW 19.8 H Plt Count 331 MPV 9.2 L Immature Gran % (Auto) 0.8 H Neut % (Auto) 81.3 H Lymph % (Auto) 9.8 L [place] % (Auto) 7.8 Eos % (Auto) 0.1 Baso % (Auto) 0.2 Lymph # (Auto) 1.0 L [place] # (Auto) 0.8 Eos # (Auto) 0.0 Baso # (Auto) 0.0 Abs Immat Gran (auto) 0.08 H Absolute Neuts (auto) 8.2 Absolute Nucleated RBC 0.000 Nucleated RBC % (auto) 0.0 Absolute Retic Percent Retic Immature Retic Fraction Retic Hgb Equivalent Anion Gap Estim Creat Clear Calc Estimated GFR POC Glucose 143 H 88 Random Glucose Lactic Acid Lactic Acid F/U @ 2Hr Calcium Ferritin Total Bilirubin Direct Bilirubin AST ALT Alkaline Phosphatase Lactate Dehydrogenase Total Protein Albumin Vitamin B12 Folate COVID-19 ([facility]) COVID-19 [employer] Com Blood Type Antibody Screen Crossmatch 02/05/22 02/05/22 08:48 10:50 MCV MCH MCHC RDW Plt Count MPV Immature Gran % (Auto) Neut % (Auto) Lymph % (Auto) [place] % (Auto) Eos % (Auto) Baso % (Auto) Lymph # (Auto) [place] # (Auto) Eos # (Auto) Baso # (Auto) Abs Immat Gran (auto) Absolute Neuts (auto) Absolute Nucleated RBC Nucleated RBC % (auto) Absolute Retic Percent Retic Immature Retic Fraction Retic Hgb Equivalent Anion Gap Estim Creat Clear Calc Estimated GFR POC Glucose 65 Random Glucose Lactic Acid Lactic Acid F/U @ 2Hr Calcium Ferritin Total Bilirubin Direct Bilirubin AST ALT Alkaline Phosphatase Lactate Dehydrogenase Total Protein Albumin Vitamin B12 Folate COVID-19 ([facility]) COVID-19 [employer] Com Blood Type O Positive Antibody Screen NEGATIVE Crossmatch See Detail Microbiology Microbiology Results: Microbiology 02/04/22 15:57 Blood Culture - Final Blood - Venous Assessment and Plan (1) Candidiasis: Status: Acute Plan hospital d#2 67yo F with 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 given 1 dose of ceftriaxone in ED + ID consult pending. # candidiasis, oral and suspected esophageal - fluconazole 200 mg once, then 100 mg daily x 10d - [employer] consult re dysphagia. give NDD 1 solids. # severe protein-calorie malnutrition - Ensure 1 can tid # metastatic ovarian CA - not on treatment. per discussion with pt, , and daughter Jaquelin via phone, goals of care are palliation of symptoms at this point; however, she is not interested in hospice care. - continue fentanyl patch with hydromorphone + oxycodone prn breakthrough pain as per home regimen # VTE ppx - UFH # dispo - anticipate home when improved In my clinical judgment, the patient requires continued hospitalization for the following reasons: transfusion Quality Stroke Does the patient have a stroke diagnosis?: No VTE Prior VTE?: No VTE Risk Level:: Medical - moderate - high VTE Device Contraindication: Treatment Not Indicated VTE Drug Contraindication: N/A - Med Ordered
--- NOTE | 2022-02-05 14:28 | P.CNID_ITS ---
History of Present Illness Data of Consult Service Date: 02/05/22 Requesting physician: Britt Light Primary Care Provider: Katalina Larson MD HPI Reason for consult: failure to thrive She has ovarian cancer with enterovesicular fistula and has had dysphagia last two weeks. She has no fever or chills. She has sore tongue as well. She denies urinary symptoms Review of Systems Review of Systems: Yes all other systems are reviewed and are negative PMFSH Past Medical History Medical History Acute UTI Arthritis Bacteremia On total parenteral nutrition Osteoporosis Family History Family History Other No family history of coronary artery disease Family history: reviewed and not pertinent Surgical History Surgical History History of colon resection Hx of cholecystectomy Social History Social History Household Members: Spouse Housing: House Do you presently have visiting nurse or other home services: No Alcohol intake: never Patient Tobacco Use Status: Never used Tobacco Use of substances other than those prescribed or required for medical reasons: No Currently Displaying Signs/Symptoms of Drug Intoxication Withdrawal: No Have you been hit, kicked, punched, or otherwise hurt by someone within the past year? If so, by whom?: No Do you feel safe in your current relationship?: No Is there a partner from a previous relationship who is making you feel unsafe now?: No Advance Directives: Yes Advance Directives Information Provided: No Advance Directives on File: No Advance Directives Date on File: 05/04/21 Do you have thoughts of harming others: None Do you have a plan to hurt others: No Plan Recently lost weight without trying: Yes How much weight loss: Unsure Eating poorly because of decreased appetite: Yes Nutrition screen score: 5 Nutrition Risks: Dental problems and Difficulty swallowing Patient : No : No Poor oral hygiene: No service: No Current occupational status: unemployed and retired Meds Allergies Allergy/AdvReac Type Severity Reaction Status Date / Time Iodinated Contrast Media Allergy Severe DIFF.BREATH Verified 06/11/21 13:16 [IV Dye, Iodine Containing] ING Penicillins AdvReac Mild PASSED OUT Verified 06/11/21 13:16 Environmental Allergy Mild ITCHY Uncoded 05/04/20 16:02 EYES/RUNNY NOSE DYE Allergy Unknown Unknown Uncoded 05/03/21 16:31 PENICILLIN G Allergy Unknown Unknown Uncoded 05/03/21 16:31 Active Medications: Current Medications Dextrose (Dextrose 50 % 25 Gm/50 Ml Syringe) 25 gm IVPUSH Q15M PRN; Protocol PRN Reason: per Hypoglycemia Standing Ord. Last Admin: 02/05/22 06:35 Dose: 25 gm Fentanyl (Fentanyl 25 Mcg Patch.Td72) 25 mcg TRANSDERMA Q3D [facility] Last Admin: 02/05/22 10:24 Dose: 25 mcg Fluticasone Propionate (Fluticasone Propionate Nasal 16 Gm [place]) 1 spray NOSTR [place]-B DAILY [facility] Glucose (Glucose Gel 15 Gm Gel..Gram.) 15 gm PO Q15M PRN; Protocol PRN Reason: per Hypoglycemia Standing Ord. Heparin Sodium (Porcine) (Heparin Sodium,Porcine 5,000 Unit/Ml Vial) 5,000 unit SUBCUT Q12H [facility] Last Admin: 02/05/22 10:24 Dose: 5,000 unit Hydromorphone HCl (Hydromorphone Hcl 0.5 Mg/0.5 Ml Syringe) 0.25 mg IVPUSH Q4H PRN; Protocol PRN Reason: Breakthrough Pain Hydromorphone HCl (Hydromorphone Hcl 2 Mg Tablet) 2 mg PO Q6H PRN PRN Reason: severe pain (scale score 7-10) Fluconazole 100 mg/ IV (Miscellaneous Supplies) 50 mls @ 50 mls/hr IV Q24H [facility] Melatonin (Melatonin 3 Mg Tablet) 6 mg PO BEDTIME PRN PRN Reason: Insomnia Multivitamins/Vitamin C (Multivitamin Tablet) 1 tab PO DAILY [facility] Last Admin: 02/05/22 09:04 Dose: 1 tab Oxybutynin Chloride (Oxybutynin Chloride Er 5 Mg Tab.Er.24) 10 mg PO DAILY [facility] Last Admin: 02/05/22 09:03 Dose: 10 mg Oxycodone HCl (Oxycodone Hcl Immed Release 5 Mg Tablet) 5 mg PO DAILY PRN PRN Reason: Pain, Mild Last Admin: 02/05/22 09:03 Dose: 5 mg Senna/Docusate Sodium (Sennosides/Docusate Sodium Tablet) 2 tab PO DAILY PRN PRN Reason: Constipation Sodium Chloride (0.9 % Sodium Chloride Flush 3 Ml Syringe) 3 ml IVFLUSH QSHIFT [facility] Last Admin: 02/05/22 08:52 Dose: Not Given Thiamine HCl (Thiamine Hcl 100 Mg Tablet) 100 mg PO DAILY [facility] Last Admin: 02/05/22 09:03 Dose: 100 mg Trazodone HCl (Trazodone Hcl 50 Mg Tablet) 50 mg PO BEDTIME [facility] Home Medications Medication Instructions Recorded Confirmed Last Taken Type melatonin 5 mg tablet 1 tab PO BEDTIME PRN Insomnia 05/03/21 02/05/22 05/02/21 History fentanyl 25 mcg/hr transdermal 1 patch topical Q3D 10/02/21 02/05/22 02/02/22 History patch sennosides 8.6 mg-docusate sodium 2 tab PO DAILY PRN Constipation 10/02/21 02/05/22 Unknown History 50 mg tablet (Senna Plus) fluticasone propionate 50 1 spray intranasal DAILY 01/19/22 02/05/22 Unknown History mcg/actuation nasal spray,suspension multivitamin with folic acid 400 1 tab PO DAILY 01/19/22 02/05/22 Unknown History mcg tablet (Daily-[place]an (with folic acid)) oxybutynin chloride 10 mg 1 tab PO DAILY 01/19/22 02/05/22 Unknown History tablet,extended release 24 hr oxycodone 5 mg tablet 5 mg PO DAILY PRN Pain, Mild 01/19/22 02/05/22 Unknown History thiamine HCl (vitamin B1) 100 mg 1 tab DAILY 01/19/22 02/05/22 Unknown History tablet trazodone 50 mg tablet 50 mg PO BEDTIME insomnia 01/19/22 02/05/22 Unknown History zinc oxide-cod liver oil topical 1 ea topical TID 02/05/22 02/05/22 Unknown History ointment (Pediatric Oint (cod liver oil)) Physical Exam Vital Signs: Vital Signs: Last Vital Signs Temp 98.4 F 02/05/22 13:45 Pulse 88 02/05/22 13:45 Resp 17 02/05/22 13:45 BP 104/51 L 02/05/22 13:45 Pulse Ox 99 02/05/22 13:45 O2 Del Method 02/05/22 13:45 BMI result Body Mass Index 19.5 Const: General: cooperative HEENT: Head: Yes normal to inspection Mouth: Normal oral and palatal mucosa present (oral mucosa ulcerative lesion tongue) Resp: Effort & Inspection: normal respiratory effort Cardio: Rate: regular rate Rhythm: regular rhythm GI: Palpation (GI): Soft to palpation and nontender Skin: General skin exam: no rashes or lesions noted Results Labs CBC & Chem 7: 02/05/22 06:44 02/05/22 05:48 Labs: Short CBC 02/04/22 02/05/22 02/05/22 Range/Units 14:19 05:48 06:44 WBC 13.5 H 10.5 10.1 (4.8-10.8) X10*3/uL Hgb 8.2 L 6.7 L* 6.4 L* (12.0-16.0) g/dl Hct 25.9 L 20.5 L* D 20.0 L* (37.0-47.0) % Plt Count 510 H D 370 D 331 (160-400) X10*3/uL BMP 02/04/22 02/05/22 14:19 05:48 Sodium 133 L 137 Potassium 4.5 4.0 Chloride 100 106 Carbon Dioxide 27 26 BUN 8 L 7 L Creatinine 0.63 0.59 Calcium 7.1 L 7.0 L Liver Function 02/04/22 02/05/22 Range/Units 14:19 05:48 Total Bilirubin 0.5 0.5 (0.0-1.0) mg/dL Direct Bilirubin 0.4 0.3 (0.0-0.5) mg/dL AST 65 H 49 H (5-31) U/L ALT 15 9 (0-31) U/L Alkaline Phosphatase 1410 H 947 H D (39-117) U/L Albumin 1.5 L D 2.1 L D (3.5-5.0) g/dL Microbiology Microbiology Results: Microbiology 02/04/22 15:57 Blood - Venous Blood Culture - Final Assessment and Plan (1) Weakness: Status: Acute (2) Dysphagia: Status: Acute possible HSV with ulcers Do not see heidy but may be further down Plan Diflucan Acyclovir 5 mg/kg/day IV
[2022-02-05 16:19] LABS: Glucose, Whole Blood 59 mg/dL (60-115)
[2022-02-05 16:41] LABS: Glucose, Whole Blood 73 mg/dL (60-115)
[2022-02-05] MEDS: 0.9 % Sodium Chloride Flush 3 ML SYRINGE IVFLUSH (17:07)
[2022-02-05] MEDS: Fluconazole in NaCl,Iso-Osm 200 MG/100 ML PIGGYBACK 100 MG IV (17:07)
[2022-02-05] MEDS: HYDROmorphone HCl 2 MG TABLET PO (17:13)
--- NOTE | 2022-02-05 18:53 | PC.NURSE ---
Alert and oriented. C/O sore throat/mouth pain and abd pain, medicated per MAR with effect. VSS, afebrile, no acute resp. distress noted. Started IV diflucan. Infused with 2 units or PRBCs, no adverse reaction noted, tolerated it well. Family at bedside, updated of plan of care. Repositioned as needed for comfort. Skin and fall precautions maintained. Will continue to monitor and treat per plan of care.
[2022-02-05 19:11] LABS: Hematocrit 38.5 % (37.0-47.0); Hemoglobin 12.4 g/dl (12.0-16.0)
[2022-02-05 20:20] LABS: Glucose, Whole Blood 65 mg/dL (60-115)
[2022-02-05] MEDS: HYDROmorphone HCl 0.5 MG/0.5 ML SYRINGE 0.25 MG IVPUSH (20:34)
[2022-02-05] MEDS: traZODone HCL 50 MG TABLET PO (20:36)
[2022-02-06] VITALS (7 sets, daily range): BP systolic 113–134; BP diastolic 50–62; PULSE 83–104; RESP 17–20; TEMP 36–37.3; O2SAT 94–100; BMI 19.5
[2022-02-06] MEDS: HYDROmorphone HCl 0.5 MG/0.5 ML SYRINGE 0.25 MG IVPUSH ×3 (03:59→17:12)
[2022-02-06] MEDS: 0.9 % Sodium Chloride Flush 3 ML SYRINGE IVFLUSH ×3 (04:51→17:12)
[2022-02-06 06:41] LABS: Hematocrit 34.4 % (37.0-47.0); Hemoglobin 11.3 g/dl (12.0-16.0); Mean Corpuscular HGB Conc 32.8 g/dl (31.0-35.0); Mean Corpuscular Hemoglobin 28.2 pg (27.0-33.0); Mean Corpuscular Volume 85.8 fL (80.0-98.0); Mean Platelet Volume 9.5 fL (9.4-12.3); Platelet Count 321 X10*3/uL (160-400); Red Blood Count 4.01 X10*6/uL (4.20-5.50); Red Cell Distribution Width 17.3 % (11.0-16.0); White Blood Count 11.5 X10*3/uL (4.8-10.8)
[2022-02-06 07:07] LABS: Alanine Aminotransferase 8 U/L (0-31); Alkaline Phosphatase 1099 U/L (39-117); Anion Gap 10 (12-20); Aspartate Amino Transferase 53 U/L (5-31); Blood Urea Nitrogen 6 mg/dL (9-16); Calcium 7.3 mg/dL (8.4-10.2); Carbon Dioxide 25 mmol/L (22-29); Chloride 104 mmol/L (96-108); Creatinine Clr Calc Pharmacy 65.3; Estimated Glomerular Filt Rate > 60; Glucose Random 58 mg/dL (60-115); Sodium 135 mmol/L (135-145); Total Protein 6.6 g/dL (6.5-8.0)
[2022-02-06 08:27] LABS: Glucose, Whole Blood 47 mg/dL (60-115)
[2022-02-06] MEDS: Dextrose 5 % and 0.45 % NaCl 1,000 ML 80 ML IVCONT (09:50)
[2022-02-06] MEDS: HYDROmorphone HCl 2 MG TABLET PO (09:54)
[2022-02-06] MEDS: Thiamine HCL 100 MG TABLET PO (09:54)
[2022-02-06] MEDS: Heparin Sodium,Porcine 5,000 UNIT/ML VIAL 5000 UNIT SUBCUT (09:55)
[2022-02-06] MEDS: Fluticasone Propionate Nasal 16 GM SPRAY 1 SPRAY NOSTRIL-B (09:55)
[2022-02-06] MEDS: Multivitamin TABLET 1 TAB PO (09:55)
--- NOTE | 2022-02-06 09:57 | P.PNIM_ITS ---
Subjective Subjective Date of Service: 02/06/22 Interval History: This history was taken in Mongolian from the patient. tolerated transfusion feels less fatigued but still very weak still c/o dysphagia + odynophagia abd/back pain well-controlled Review of Systems Review of Systems: Yes all other systems are reviewed and are negative Physical Exam Vital Signs: Vital Signs: Last Vital Signs Temp 96.8 F 02/06/22 07:39 Pulse 84 02/06/22 07:39 Resp 18 02/06/22 07:39 BP 119/52 L 02/06/22 07:39 Pulse Ox 96 02/06/22 07:39 O2 Del Method 02/06/22 07:39 O2 Flow Rate 2 02/06/22 03:48 BMI result Body Mass Index 19.5 Gen: frail, cachectic HEENT: sclera anicteric, thrush on tongue, angular cheilitis Neck: supple Lungs: clear to auscultation bilaterally Heart: regular rate and rhythm, no murmurs Abd: soft, tender Ext: no edema Skin: warm/well-perfused Neuro: alert and oriented x3, no focal findings Psych: appropriate affect Objective Data Active Medications Dextrose (Dextrose 50 % 25 Gm/50 Ml Syringe) 25 gm IVPUSH Q15M PRN; Protocol PRN Reason: per Hypoglycemia Standing Ord. Last Admin: 02/05/22 06:35 Dose: 25 gm Documented By: TRACEY Fentanyl (Fentanyl 25 Mcg Patch.Td72) 25 mcg TRANSDERMA Q3D [facility] Last Admin: 02/05/22 10:24 Dose: 25 mcg Documented By: AMY Fluticasone Propionate (Fluticasone Propionate Nasal 16 Gm [place]) 1 spray NOSTRIL-B DAILY [facility] Last Admin: 02/06/22 09:55 Dose: 1 spray Documented By: AMY Glucose (Glucose Gel 15 Gm Gel..Gram.) 15 gm PO Q15M PRN; Protocol PRN Reason: per Hypoglycemia Standing Ord. Heparin Sodium (Porcine) (Heparin Sodium,Porcine 5,000 Unit/Ml Vial) 5,000 unit SUBCUT Q12H [facility] Last Admin: 02/06/22 09:55 Dose: 5,000 unit Documented By: AMY Hydromorphone HCl (Hydromorphone Hcl 0.5 Mg/0.5 Ml Syringe) 0.25 mg IVPUSH Q4H PRN; Protocol PRN Reason: Breakthrough Pain Last Admin: 02/06/22 03:59 Dose: 0.25 mg Documented By: RIAN Hydromorphone HCl (Hydromorphone Hcl 2 Mg Tablet) 2 mg PO Q6H PRN PRN Reason: severe pain (scale score 7-10) Last Admin: 02/06/22 09:54 Dose: 2 mg Documented By: AMY Fluconazole 100 mg/ IV (Miscellaneous Supplies) 50 mls @ 50 mls/hr IV Q24H [facility] Acyclovir Sodium 235 mg/ (Sodium Chloride) 104.7 mls @ 104.7 mls/hr IV Q8H [facility] Last Admin: 02/06/22 09:38 Dose: 104.7 mls/hr Documented By: AMY Dextrose/Sodium Chloride (D51/2ns) 1,000 mls @ 80 mls/hr IVCONT .[id number] [facility] Last Admin: 02/06/22 09:50 Dose: 80 mls/hr Documented By: AMY Melatonin (Melatonin 3 Mg Tablet) 6 mg PO BEDTIME PRN PRN Reason: Insomnia Multivitamins/Vitamin C (Multivitamin Tablet) 1 tab PO DAILY [facility] Last Admin: 02/06/22 09:55 Dose: 1 tab Documented By: AMY Oxybutynin Chloride (Oxybutynin Chloride Er 5 Mg Tab.Er.24) 10 mg PO DAILY [facility] Last Admin: 02/06/22 09:54 Dose: 10 mg Documented By: AMY Oxycodone HCl (Oxycodone Hcl Immed Release 5 Mg Tablet) 5 mg PO DAILY PRN PRN Reason: Pain, Mild Last Admin: 02/05/22 09:03 Dose: 5 mg Documented By: AMY Senna/Docusate Sodium (Sennosides/Docusate Sodium Tablet) 2 tab PO DAILY PRN PRN Reason: Constipation Sodium Chloride (0.9 % Sodium Chloride Flush 3 Ml Syringe) 3 ml IVFLUSH QSHIFT [facility] Last Admin: 02/06/22 09:43 Dose: 3 ml Documented By: AMY Thiamine HCl (Thiamine Hcl 100 Mg Tablet) 100 mg PO DAILY [facility] Last Admin: 02/06/22 09:54 Dose: 100 mg Documented By: AMY Trazodone HCl (Trazodone Hcl 50 Mg Tablet) 50 mg PO BEDTIME [facility] Last Admin: 02/05/22 20:36 Dose: 50 mg Documented By: RIAN Labs CBC & Chem 7: 02/06/22 06:14 02/06/22 06:14 Labs: Laboratory Results - last 24 hr 02/05/22 02/05/22 02/05/22 08:48 10:50 16:14 MCV MCH MCHC RDW Plt Count MPV Absolute Nucleated RBC Nucleated RBC % (auto) Anion Gap Estim Creat Clear Calc Estimated GFR POC Glucose 65 59 L* Random Glucose Calcium Total Bilirubin AST ALT Alkaline Phosphatase Total Protein Albumin Blood Type O Positive Antibody Screen NEGATIVE Crossmatch See Detail 02/05/22 02/05/22 02/06/22 16:37 20:12 06:14 MCV 85.8 MCH 28.2 MCHC 32.8 RDW 17.3 H Plt Count 321 MPV 9.5 Absolute Nucleated RBC 0.000 Nucleated RBC % (auto) 0.0 Anion Gap Estim Creat Clear Calc Estimated GFR POC Glucose 73 65 Random Glucose Calcium Total Bilirubin AST ALT Alkaline Phosphatase Total Protein Albumin Blood Type Antibody Screen Crossmatch 02/06/22 02/06/22 06:14 07:37 MCV MCH MCHC RDW Plt Count MPV Absolute Nucleated RBC Nucleated RBC % (auto) Anion Gap 10 L Estim Creat Clear Calc 65.3 Estimated GFR > 60 POC Glucose 47 L* Random Glucose 58 L* Calcium 7.3 L Total Bilirubin 1.0 AST 53 H ALT 8 Alkaline Phosphatase 1099 H Total Protein 6.6 Albumin 2.0 L Blood Type Antibody Screen Crossmatch Microbiology Microbiology Results: Microbiology 02/04/22 17:35 Blood Culture - Preliminary Blood - Venous No growth after 24 hours. 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 given 1 dose of ceftriaxone in ED. no symptoms; per ID no UTI # candidiasis, oral and suspected esophageal - fluconazole 200 mg once 02/05, then 100 mg daily d#08/26 - [facility] consulted re dysphagia. give NDD 1 solids, thin liquids # possible oral HSV - acyclovir 5 mg/kg q8h per ID d#1 # severe protein-calorie malnutrition - Ensure 1 can tid # metastatic ovarian CA - not on treatment. per discussion with pt, , and daughter Jaquelin via phone, goals of care are palliation of symptoms at this point; however, she is not interested in hospice care. - continue fentanyl patch with hydromorphone + oxycodone prn breakthrough pain as per home regimen # VTE ppx - UFH # dispo - anticipate home when improved In my clinical judgment, the patient requires continued hospitalization for the following reasons: IV fluids, IV antifungal/antiviral Quality Stroke Does the patient have a stroke diagnosis?: No VTE Prior VTE?: No VTE Risk Level:: Medical - moderate - high VTE Device Contraindication: Treatment Not Indicated VTE Drug Contraindication: N/A - Med Ordered
[2022-02-06] MEDS: Fluconazole in NaCl,Iso-Osm 100 MG in Container,Empty 0 ML 50 MG IV (11:38)
[2022-02-06 11:58] LABS: Glucose, Whole Blood 106 mg/dL (60-115)
[2022-02-06 12:48] LABS: OBS Int Ctl Valid YES; OBS1 NEGATIVE (NEGATIVE)
--- NOTE | 2022-02-06 14:47 | MHC.CM.PN ---
Pt currently on IV antibiotic. Discharge plan is home with 24/7 care.
--- NOTE | 2022-02-06 15:30 | PC.NURSE ---
Alert and responsive. C/O ABD pain, medicated per MAR with effect. VSS, afebrile, no acute resp. distress noted. Continue on antifungal/antiviral therapy, no adverse reactions noted. Fasting finger stick critically low this morning (58). MD updated, started D5/0.45% NS at 80ml/hr. Repositioned as needed for comfort. Family at bedside,. OB stool collected, results pending. updated of plan of care. Will continue to monitor and treat per plan of care.
[2022-02-06 15:42] LABS: Glucose, Whole Blood 108 mg/dL (60-115)
--- NOTE | 2022-02-06 16:36 | MHC.CLN ---
NUTRITION CONSULT FOR POOR ORAL INTAKE. 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 DYSPHAGIA X 2 WEEKS. USUALLY EATS SMALL AMOUNTS AT HOME. DIET=PUREE. ENSURE TID PROVIDES ADDITIONAL 1050 KCALS, 60 G PROTEIN. SEE CLINICAL NUTRITION ASSESSMENT 02/06.
[2022-02-06 20:03] LABS: Glucose, Whole Blood 97 mg/dL (60-115)
[2022-02-06] MEDS: traZODone HCL 50 MG TABLET PO (20:34)
[2022-02-06] MEDS: oxyCODONE HCl Immed Release 5 MG TABLET PO (20:41)
[2022-02-07] MEDS: Heparin Sodium,Porcine 5,000 UNIT/ML VIAL 5000 UNIT SUBCUT (00:58)
[2022-02-07] MEDS: HYDROmorphone HCl 0.5 MG/0.5 ML SYRINGE 0.25 MG IVPUSH ×2 (01:04→22:09)
[2022-02-07] MEDS: Dextrose 5 % and 0.45 % NaCl 1,000 ML 80 ML IVCONT ×2 (01:08→21:58)
[2022-02-07 03:38] VITALS: BP 101/53; PULSE 102; RESP 18; TEMP 37.1; O2SAT 94
[2022-02-07 07:47] VITALS: BP 100/49; PULSE 90; RESP 18; TEMP 36.7; O2SAT 95
[2022-02-07 07:53] LABS: Glucose, Whole Blood 90 mg/dL (60-115)
[2022-02-07] MEDS: Thiamine HCL 100 MG TABLET PO (09:32)
[2022-02-07] MEDS: Multivitamin TABLET 1 TAB PO (09:33)
[2022-02-07] MEDS: Fluconazole in NaCl,Iso-Osm 100 MG in Container,Empty 0 ML 50 MG IV (09:34)
[2022-02-07] MEDS: oxyCODONE HCl Immed Release 5 MG TABLET PO ×2 (09:40→18:46)
[2022-02-07] MEDS: Fluticasone Propionate Nasal 16 GM SPRAY 1 SPRAY NOSTRIL-B (10:03)
[2022-02-07] MEDS: 0.9 % Sodium Chloride Flush 3 ML SYRINGE IVFLUSH ×2 (10:03→17:15)
--- NOTE | 2022-02-07 10:23 | MHC.CM.PN ---
Addendum entered by Jaycee Lucas 02/07/22 11:46: CURRENT PLAN IS HOME WITH [facility] AND FAMILY Friday02/08/22 Original Note: WENDY LANGSTONA UPDATED IN [employer] NO PLAN FOR DC OF THIS NOTE
[2022-02-07 11:30] VITALS: BP 98/45; PULSE 91; RESP 16; TEMP 36.7; O2SAT 96
[2022-02-07] MEDS: Mag&Al/Sim/Diphenhyd/Lidocaine 10 ML ORAL.SUSP PO ×3 (11:48→18:46)
[2022-02-07 11:57] LABS: Glucose, Whole Blood 106 mg/dL (60-115)
--- NOTE | 2022-02-07 12:02 | HO.PM.IMPN ---
Subjective Subjective Date of Service: 02/07/22 Interval History: This history was taken in [place] from the patient. still c/o mouth pain/swallowing pain but slowly improving Review of Systems Review of Systems: Yes all other systems are reviewed and are negative Physical Exam Vital Signs: Vital Signs: Last Vital Signs Temp 98.1 F 02/07/22 11:30 Pulse 91 02/07/22 11:30 Resp 16 02/07/22 11:30 BP 98/45 L 02/07/22 11:30 Pulse Ox 96 02/07/22 11:30 O2 Del Method 02/07/22 11:30 O2 Flow Rate 2 02/06/22 03:48 BMI result Body Mass Index 19.5 Gen: frail, cachectic HEENT: sclera anicteric, thrush on tongue, angular cheilitis Neck: supple Lungs: clear to auscultation bilaterally Heart: regular rate and rhythm, no murmurs Abd: soft, tender Ext: no edema Skin: warm/well-perfused Neuro: alert and oriented x3, no focal findings Psych: appropriate affect Objective Data Active Medications Dextrose (Dextrose 50 % 25 Gm/50 Ml Syringe) 25 gm IVPUSH Q15M PRN; Protocol PRN Reason: per Hypoglycemia Standing Ord. Last Admin: 02/05/22 06:35 Dose: 25 gm Documented By: TRACEY Fentanyl (Fentanyl 25 Mcg Patch.Td72) 25 mcg TRANSDERMA Q3D [facility] Last Admin: 02/05/22 10:24 Dose: 25 mcg Documented By: AMY Fluticasone Propionate (Fluticasone Propionate Nasal 16 Gm [place]) 1 spray NOSTRIL-B DAILY [facility] Last Admin: 02/07/22 10:03 Dose: 1 spray Documented By: BENTON Glucose (Glucose Gel 15 Gm Gel..Gram.) 15 gm PO Q15M PRN; Protocol PRN Reason: per Hypoglycemia Standing Ord. Heparin Sodium (Porcine) (Heparin Sodium,Porcine 5,000 Unit/Ml Vial) 5,000 unit SUBCUT Q12H [facility] Last Admin: 02/07/22 09:51 Dose: Not Given Documented By: BENTON Non-Admin Reason: Patient Refused Hydromorphone HCl (Hydromorphone Hcl 0.5 Mg/0.5 Ml Syringe) 0.25 mg IVPUSH Q4H PRN; Protocol PRN Reason: Breakthrough Pain Last Admin: 02/07/22 01:04 Dose: 0.25 mg Documented By: [place] Fluconazole 100 mg/ IV (Miscellaneous Supplies) 50 mls @ 50 mls/hr IV Q24H [facility] Last Infusion: 02/07/22 11:53 Dose: 0 mls/hr Documented By: BENTON Acyclovir Sodium 235 mg/ (Sodium Chloride) 104.7 mls @ 104.7 mls/hr IV Q8H [facility] Last Admin: 02/07/22 11:35 Dose: 104.7 mls/hr Documented By: BENTON Dextrose/Sodium Chloride (D51/2ns) 1,000 mls @ 80 mls/hr IVCONT .[id number] [facility] Last Admin: 02/07/22 01:08 Dose: 80 mls/hr Documented By: [place] Lidocaine/Diphenhydr/Alum/Mg/Simeth (Mag&Al/Sim/Diphenhyd/Lidocaine 10 Ml Oral.Susp) 10 ml PO Q4H [facility]; Protocol Last Admin: 02/07/22 11:48 Dose: 10 ml Documented By: BENTON Melatonin (Melatonin 3 Mg Tablet) 6 mg PO BEDTIME PRN PRN Reason: Insomnia Multivitamins/Vitamin C (Multivitamin Tablet) 1 tab PO DAILY [facility] Last Admin: 02/07/22 09:33 Dose: 1 tab Documented By: BENTON Oxybutynin Chloride (Oxybutynin Chloride Er 5 Mg Tab.Er.24) 10 mg PO DAILY [facility] Last Admin: 02/07/22 09:33 Dose: 10 mg Documented By: BENTON Oxycodone HCl (Oxycodone Hcl Immed Release 5 Mg Tablet) 5 mg PO Q4H PRN PRN Reason: Pain, breakthrough Senna/Docusate Sodium (Sennosides/Docusate Sodium Tablet) 2 tab PO DAILY PRN PRN Reason: Constipation Sodium Chloride (0.9 % Sodium Chloride Flush 3 Ml Syringe) 3 ml IVFLUSH QSHIFT [facility] Last Admin: 02/07/22 10:03 Dose: 3 ml Documented By: BENTON Thiamine HCl (Thiamine Hcl 100 Mg Tablet) 100 mg PO DAILY [facility] Last Admin: 02/07/22 09:32 Dose: 100 mg Documented By: BENTON Trazodone HCl (Trazodone Hcl 50 Mg Tablet) 50 mg PO BEDTIME [facility] Last Admin: 02/06/22 20:34 Dose: 50 mg Documented By: LATRICE Labs CBC & Chem 7: 02/06/22 06:14 02/06/22 06:14 Labs: Laboratory Results - last 24 hr 02/06/22 02/06/22 02/06/22 11:05 15:37 19:59 POC Glucose 108 97 Stool Occult Blood NEGATIVE 02/07/22 02/07/22 07:47 11:28 POC Glucose 90 106 Stool Occult Blood Microbiology Microbiology Results: Microbiology 02/04/22 17:35 Blood Culture - Preliminary Blood - Venous No growth after 48 hours. 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 given 1 dose of ceftriaxone in ED. no symptoms; per ID no UTI # candidiasis, oral and suspected esophageal - fluconazole 200 mg once 02/05, then 100 mg daily d#09/26 - IMPLEMENTATION ARCHITECT consulted re dysphagia. give NDD 1 solids, thin liquids # possible oral HSV - acyclovir 5 mg/kg q8h per ID d#2 # severe protein-calorie malnutrition - Ensure 1 can tid # metastatic ovarian CA - not on treatment. per discussion with pt, , and daughter Jaquelin via phone, goals of care are palliation of symptoms at this point; however, she is not interested in hospice care. - continue fentanyl patch with oxycodone prn breakthrough pain # VTE ppx - UFH # dispo - anticipate home when improved In my clinical judgment, the patient requires continued hospitalization for the following reasons: IV fluids, IV antifungal/antiviral Quality Stroke Does the patient have a stroke diagnosis?: No VTE Prior VTE?: No VTE Risk Level:: Medical - moderate - high VTE Device Contraindication: Treatment Not Indicated VTE Drug Contraindication: N/A - Med Ordered
[2022-02-07 15:20] VITALS: BP 107/54; PULSE 86; RESP 18; TEMP 36.8; O2SAT 98
--- NOTE | 2022-02-07 15:49 | P.CNGI_ITS ---
History of Present Illness Data of Consult Service Date: 02/07/22 Requesting physician: Britt Light Primary Care Provider: Katalina Larson MD HPI Reason for consult: Dysphagia, Anemia, rectal bleeding 67 YF with a DM, ovarian cancer with metastasis, history of enterovesical fistula, recurrent UTIs, history of SBO, severe protein calorie malnutrition with recent hospitalization for failure to thrive/fall; She was being treated for advanced ovarian cancer both at [facility] and [facility] since 2013.? Her last visit with her oncologist Dr. Calhoun was in July 2021. She has not received any chemotherapy since 2019.? She was admitted in December 2020 when she underwent repair of colovesical fistula, laparotomy and small-bowel resection and bladder repair. 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 In July 2021 her oncologist discussed DNR/DNI status and hospice care with the patient as she had significant progression of her cancer and her performance status had declined significantly.? She was felt not to be a candidate for further chemotherapy.? However, patient was not willing for hospice care.? She has been seen by surgery for the colovesical fistula during a previous admission and has been deemed not to be a surgical candidate. Patient is not actively following with Oncology due to advanced disease and considered not likely to benefit from disease directed treatment, Hospice was recommended during her last hospitalization, however, family was interested as they would like to continue coming to the hospital for treatment for dehydration or infection that may come up.? Patient was discharged home with VNA services. Pt was admitted to [facility] on 02/04/22 with generalized weakness/not feeling well.? Most of the history provided with the patient and patient's family at bedside.? Reportedly patient has been not doing well over the past 2 days.? Also mentioned patient has decreased oral intake and has not be eating well.? Mentions she has difficulty swallowing secondary to pain in the mouth. Patient also reports having abdominal discomfort, denies any nausea vomiting or diarrhea.? Reports subjective fevers.? Patient's daughter mentioned that patient was planned to be on chronic suppressive antibiotics but has not been started yet.? Pt is status post laparoscopic sigmoid colectomy in 2009 for recurrent diverticulitis. 02/04/[address] SCAN SHOWED (PERSONALLY REVIEWED): Stable findings from 01/19/2022. Enlarged liver and extensive metastatic disease. Enlarged retroperitoneal and bilateral inguinal lymph nodes. Left hydronephrosis. Abnormal appearing bladder which is thick-walled and contains air. Posterior wall of the bladder is continuous with the anterior wall of the vagina which also contains air. Anterior wall of the bladder is continuous with anterior abdominal wall soft tissue masses. Again, neoplasm and possible fistula should be considered. Small amount of ascites. ER course: Per ER team patient on presentation noted to have low-grade temperature 9 in formed right, mild abdominal tenderness; CT scan of the abdomen showed no acute change in her chronic intra-abdominal findings.? Patient noted to have tachycardia and mild leukocytosis; patient was empirically given ceftriaxone.? Also noted to have albumin 1.5-> received IV albumin, severely elevated [id number] to be worsening cancer.? Pt was admitted and given IVF and IV Ceftriaxone for UTI. She was started on PO fluconazone for oral and suspected esophageal candiddiasis. She was transfused 2 U PRBC with improvement in anemia to H & H 12.4 & 38.5 Repeat labs on 02/07/22 showed H & H of 11.3 & 34.4 Pt returned to the floor at 2 pm today after a Duplex US and noted by nursing staff to have small tiny blood clots with streaks of blood in the diaper. No skin breaks were noted. Source of bleeding attributed to rectal bleeding . Review of Systems Constitutional: Constitutional: Reports fatigue, Reports weakness and Reports weight loss ENT: Reports dysphagia Cardiovascular: Cardiovascular: Denies chest pain Gastrointestinal: Gastrointestinal: Reports abdominal pain, Reports hematochezia and Reports dysphagia Neurologic: Reports weakness Endocrine: Endocrine: Reports fatigue [facility] Past Medical History Medical History Acute UTI Arthritis Bacteremia On total parenteral nutrition Osteoporosis Family History Family History Other No family history of coronary artery disease Family history: reviewed and not pertinent Surgical History Surgical History History of colon resection Hx of cholecystectomy Social History Social History Household Members: Spouse Housing: House Do you presently have visiting nurse or other home services: No Alcohol intake: never Patient Tobacco Use Status: Never used Tobacco Use of substances other than those prescribed or required for medical reasons: No Currently Displaying Signs/Symptoms of Drug Intoxication Withdrawal: No Have you been hit, kicked, punched, or otherwise hurt by someone within the past year? If so, by whom?: No Do you feel safe in your current relationship?: No Is there a partner from a previous relationship who is making you feel unsafe now?: No Advance Directives: Yes Advance Directives Information Provided: No Advance Directives on File: No Advance Directives Date on File: 05/04/21 Do you have thoughts of harming others: None Do you have a plan to hurt others: No Plan Recently lost weight without trying: Yes How much weight loss: Unsure Eating poorly because of decreased appetite: Yes Nutrition screen score: 5 Nutrition Risks: Dental problems and Difficulty swallowing Patient : No : No Poor oral hygiene: No service: No Current occupational status: unemployed and retired Meds Allergies Allergy/AdvReac Type Severity Reaction Status Date / Time Iodinated Contrast Media Allergy Severe DIFF.BREATH Verified 06/11/21 13:16 [IV Dye, Iodine Containing] ING Penicillins AdvReac Mild PASSED OUT Verified 06/11/21 13:16 Environmental Allergy Mild ITCHY Uncoded 05/04/20 16:02 EYES/RUNNY NOSE DYE Allergy Unknown Unknown Uncoded 05/03/21 16:31 PENICILLIN G Allergy Unknown Unknown Uncoded 05/03/21 16:31 Active Medications: Current Medications Dextrose (Dextrose 50 % 25 Gm/50 Ml Syringe) 25 gm IVPUSH Q15M PRN; Protocol PRN Reason: per Hypoglycemia Standing Ord. Last Admin: 02/05/22 06:35 Dose: 25 gm Fentanyl (Fentanyl 25 Mcg Patch.Td72) 25 mcg TRANSDERMA Q3D [facility] Last Admin: 02/05/22 10:24 Dose: 25 mcg Fluticasone Propionate (Fluticasone Propionate Nasal 16 Gm [place]) 1 spray NOSTRIL-B DAILY [facility] Last Admin: 02/07/22 10:03 Dose: 1 spray Glucose (Glucose Gel 15 Gm Gel..Gram.) 15 gm PO Q15M PRN; Protocol PRN Reason: per Hypoglycemia Standing Ord. Heparin Sodium (Porcine) (Heparin Sodium,Porcine 5,000 Unit/Ml Vial) 5,000 unit SUBCUT Q12H [facility] Last Admin: 02/07/22 09:51 Dose: Not Given Hydromorphone HCl (Hydromorphone Hcl 0.5 Mg/0.5 Ml Syringe) 0.25 mg IVPUSH Q4H PRN; Protocol PRN Reason: Breakthrough Pain Last Admin: 02/07/22 01:04 Dose: 0.25 mg Fluconazole 100 mg/ IV (Miscellaneous Supplies) 50 mls @ 50 mls/hr IV Q24H [facility] Last Infusion: 02/07/22 11:53 Dose: Infused Acyclovir Sodium 235 mg/ (Sodium Chloride) 104.7 mls @ 104.7 mls/hr IV Q8H [facility] Last Infusion: 02/07/22 12:49 Dose: Infused Dextrose/Sodium Chloride (D51/2ns) 1,000 mls @ 80 mls/hr IVCONT .[id number] [facility] Last Admin: 02/07/22 01:08 Dose: 80 mls/hr Lidocaine/Diphenhydr/Alum/Mg/Simeth (Mag&Al/Sim/Diphenhyd/Lidocaine 10 Ml Oral.Susp) 10 ml PO Q4H [facility]; Protocol Last Admin: 02/07/22 11:48 Dose: 10 ml Melatonin (Melatonin 3 Mg Tablet) 6 mg PO BEDTIME PRN PRN Reason: Insomnia Multivitamins/Vitamin C (Multivitamin Tablet) 1 tab PO DAILY [facility] Last Admin: 02/07/22 09:33 Dose: 1 tab Ondansetron HCl (Ondansetron Hcl 4 Mg/2 Ml Vial) 4 mg IVPUSH Q4H PRN PRN Reason: nausea;vomting Oxybutynin Chloride (Oxybutynin Chloride Er 5 Mg Tab.Er.24) 10 mg PO DAILY [facility] Last Admin: 02/07/22 09:33 Dose: 10 mg Oxycodone HCl (Oxycodone Hcl Immed Release 5 Mg Tablet) 5 mg PO Q4H PRN PRN Reason: Pain, breakthrough Senna/Docusate Sodium (Sennosides/Docusate Sodium Tablet) 2 tab PO DAILY PRN PRN Reason: Constipation Sodium Chloride (0.9 % Sodium Chloride Flush 3 Ml Syringe) 3 ml IVFLUSH QSHIFT [facility] Last Admin: 02/07/22 10:03 Dose: 3 ml Thiamine HCl (Thiamine Hcl 100 Mg Tablet) 100 mg PO DAILY [facility] Last Admin: 02/07/22 09:32 Dose: 100 mg Trazodone HCl (Trazodone Hcl 50 Mg Tablet) 50 mg PO BEDTIME [facility] Last Admin: 02/06/22 20:34 Dose: 50 mg Home Medications Medication Instructions Recorded Confirmed Last Taken Type melatonin 5 mg tablet 1 tab PO BEDTIME PRN Insomnia 05/03/21 02/05/22 05/02/21 History fentanyl 25 mcg/hr transdermal 1 patch topical Q3D 10/02/21 02/05/22 02/02/22 History patch sennosides 8.6 mg-docusate sodium 2 tab PO DAILY PRN Constipation 10/02/21 02/05/22 Unknown History 50 mg tablet (Senna Plus) fluticasone propionate 50 1 spray intranasal DAILY 01/19/22 02/05/22 Unknown History mcg/actuation nasal spray,suspension multivitamin with folic acid 400 1 tab PO DAILY 01/19/22 02/05/22 Unknown History mcg tablet (Daily-Beltran (with folic acid)) oxybutynin chloride 10 mg 1 tab PO DAILY 01/19/22 02/05/22 Unknown History tablet,extended release 24 hr oxycodone 5 mg tablet 5 mg PO DAILY PRN Pain, Mild 01/19/22 02/05/22 Unknown History thiamine HCl (vitamin B1) 100 mg 1 tab DAILY 01/19/22 02/05/22 Unknown History tablet trazodone 50 mg tablet 50 mg PO BEDTIME insomnia 01/19/22 02/05/22 Unknown History zinc oxide-cod liver oil topical 1 ea topical TID 02/05/22 02/05/22 Unknown History ointment (Pediatric Oint (cod liver oil)) Physical Exam Vital Signs: Vital Signs: Last Vital Signs Temp 98.3 F 02/07/22 15:20 Pulse 86 02/07/22 15:20 Resp 18 02/07/22 15:20 BP 107/54 L 02/07/22 15:20 Pulse Ox 98 02/07/22 15:20 O2 Del Method 02/07/22 15:20 O2 Flow Rate 2 02/06/22 03:48 BMI result Body Mass Index 19.5 Const: General: no acute distress and ill appearing Nutritional Appearance: cachectic and malnourished Orientation/consciousness: patient oriented x3 Limitations: no limitations HEENT: Head: Yes normal to inspection Ears: hearing grossly normal bilaterally Mouth: Abnormal oral and palatal mucosa present (dry mucous membranes with erythematous appearing oral mucosa) Eyes: Sclerae: sclerae normal Pupils: Equal, round and reactive pupils present Neck: Neck: Yes normal visual inspection Chest: Chest palpation & inspection: normal inspection of the chest Resp: Effort & Inspection: normal respiratory effort Auscultation: clear to auscultation bilaterally Cardio: Palpation: normal PMI Rate: regular rate Rhythm: regular rhythm Heart sounds: S1 normal heart sound present, S2 normal heart sound present and no murmurs GI: Palpation (GI): Soft to palpation, nontender and No hepatosplenomegaly present Auscultation: normal bowel sounds Rectal Exam - Female: deferred Skin: General skin exam: no rashes or lesions noted Neuro: General: patient oriented x3, gait normal and moves all extremities Cranial nerves: Yes Equal, round and reactive pupils present Psych: Appearance: grossly normal Mental Status: mental status grossly normal Results Labs CBC & Chem 7: 02/09/22 05:21 02/09/22 05:21 Microbiology Microbiology Results: Microbiology 02/04/22 17:35 Blood - Venous Blood Culture - Preliminary No growth after 48 hours. 02/04/22 15:57 Blood - Venous Blood Culture - Final Assessment and Plan (1) Dysphagia: Status: Acute (2) Candidiasis: Status: Acute (3) Rectovaginal fistula: Status: Acute (4) Rectal bleeding: Status: Acute Plan Unfortunate 67 YF with DM, ovarian cancer with extensive hepatic, pulmonary, intra-abdominal metastasis, history of enterovesical fistula, recurrent UTIs, history of SBO, severe protein calorie malnutrition with recent hospitalization for failure to thrive/fall; She was felt not to be a candidate for further chemotherapy.? However, patient was not willing for hospice care. She has been seen by surgery for the colovesical fistula during a previous admission and has been deemed not to be a surgical candidate. Patient is not actively following with Oncology due to advanced disease and considered not likely to benefit from disease directed treatment, Pt noted to have small tiny blood clots with streaks of blood in the diaper attributed to rectal bleeding Likely from hemorrhoids versus colon involvement with metastatic disease RECOMMENDATIONS: 1. Monitor H & H daily and transfuse prn 2. Agree with fluconazole for oral/esophageal candidiasis 3. Given advanced disease, pt is not a candidate for invasive procedures Procedures Date of Service Date of Service: 02/07/22
[2022-02-07 16:07] LABS: Glucose, Whole Blood 69 mg/dL (60-115)
[2022-02-07 19:26] VITALS: BP 107/50; PULSE 94; RESP 18; TEMP 36.8; O2SAT 97
[2022-02-07 20:19] LABS: Glucose, Whole Blood 83 mg/dL (60-115)
[2022-02-07] MEDS: traZODone HCL 50 MG TABLET PO (21:58)
[2022-02-07] MEDS: Apixaban 5 MG TABLET 10 MG PO (21:58)
[2022-02-07 23:37] VITALS: BP 108/55; PULSE 92; RESP 18; TEMP 37.2; O2SAT 93
[2022-02-08 03:39] VITALS: BP 96/51; PULSE 91; RESP 18; TEMP 37.2; O2SAT 96
[2022-02-08] MEDS: Mag&Al/Sim/Diphenhyd/Lidocaine 10 ML ORAL.SUSP PO ×5 (05:38→20:35)
[2022-02-08 06:53] LABS: Hematocrit 34.1 % (37.0-47.0); Hemoglobin 11.1 g/dl (12.0-16.0); Mean Corpuscular HGB Conc 32.6 g/dl (31.0-35.0); Mean Corpuscular Hemoglobin 28.1 pg (27.0-33.0); Mean Corpuscular Volume 86.3 fL (80.0-98.0); Mean Platelet Volume 9.8 fL (9.4-12.3); Platelet Count 268 X10*3/uL (160-400); Red Blood Count 3.95 X10*6/uL (4.20-5.50); Red Cell Distribution Width 17.5 % (11.0-16.0); White Blood Count 10.5 X10*3/uL (4.8-10.8)
[2022-02-08 07:24] LABS: Anion Gap 9 (12-20); Blood Urea Nitrogen 7 mg/dL (9-16); Calcium 6.9 mg/dL (8.4-10.2); Carbon Dioxide 25 mmol/L (22-29); Chloride 102 mmol/L (96-108); Creatinine Clr Calc Pharmacy 71.1; Estimated Glomerular Filt Rate > 60; Glucose Random 68 mg/dL (60-115); Potassium 4.1 mmol/L (3.3-5.1); Sodium 132 mmol/L (135-145)
[2022-02-08 07:42] LABS: Glucose, Whole Blood 69 mg/dL (60-115)
[2022-02-08 08:00] VITALS: BP 106/57; PULSE 84; RESP 15; TEMP 36.6; O2SAT 95
[2022-02-08] MEDS: Multivitamin TABLET 1 TAB PO (09:29)
[2022-02-08] MEDS: Apixaban 5 MG TABLET 10 MG PO ×2 (09:29→20:35)
[2022-02-08] MEDS: Thiamine HCL 100 MG TABLET PO (09:29)
[2022-02-08] MEDS: Fluticasone Propionate Nasal 16 GM SPRAY 1 SPRAY NOSTRIL-B (09:30)
[2022-02-08] MEDS: 0.9 % Sodium Chloride 1,000 ML 100 ML IVCONT (09:41)
[2022-02-08] MEDS: fentaNYL 25 MCG PATCH.TD72 TRANSDERMA (09:46)
--- NOTE | 2022-02-08 09:48 | MHC.CLN ---
F/U CONTINUES WITH USUALLY POOR INTAKE, 0-25% X 2 DAYS. DIET=PUREE WITH ENSURE TID (1050 KCALS, 60 G PROTEIN). SUSPECT ERROR IN WEIGHT 02/05=47 KG. WEIGHT 02/04=37.195KG. COMPARING WEIGHT =37.195 KG, SHOWS SIGNIFICANT WEIGHT LOSS X 9 MONTHS, -17.5%. WEIGHT LOSS CONSISTENT WITH REPORTED POOR/FAIR INTAKE, DYSPHAGIA, AND METASTATIC CANCER. NUTRITION DX SEVERE MALNUTRITION IN THE CONTEXT OF CHRONIC ILLNESS. SKIN: REDNESS TO BUTTOCKS, STAGE I LEFT HEEL. CONTINUE CURRENT DIET AND SUPPLEMENT. FOLLOW WEIGHTS, INTAKE, DIET TOLERANCE.
--- NOTE | 2022-02-08 10:33 | HO.PM.IMPN ---
Subjective Subjective Date of Service: 02/08/22 Interval History: Mouth pain slightly improved Hypoglycemia improved Chronic abd/pelvic pain from CA Had a little bright red blood mixed with stool yesterday US positive for RLE DVT; started apixaban Review of Systems Review of Systems: Yes all other systems are reviewed and are negative Physical Exam Vital Signs: Vital Signs: Last Vital Signs Temp 98 F 02/08/22 08:00 Pulse 84 02/08/22 08:00 Resp 15 02/08/22 08:00 BP 106/57 L 02/08/22 08:00 Pulse Ox 95 02/08/22 08:00 O2 Del Method 02/08/22 08:00 O2 Flow Rate 2 02/06/22 03:48 BMI result Body Mass Index 19.5 Gen: frail, cachectic HEENT: sclera anicteric, dry mucosa, angular cheilitis Neck: supple Lungs: clear to auscultation bilaterally Heart: regular rate and rhythm, no murmurs Abd: soft, tender, no rebound Ext: RLE swollen Skin: warm/well-perfused Neuro: alert and oriented x3, no focal findings Psych: appropriate affect Objective Data Active Medications Apixaban (Apixaban 5 Mg Tablet) 10 mg PO BID [facility] Stop: 02/14/22 09:01 Last Admin: 02/08/22 09:29 Dose: 10 mg Documented By: BENTON Dextrose (Dextrose 50 % 25 Gm/50 Ml Syringe) 25 gm IVPUSH Q15M PRN; Protocol PRN Reason: per Hypoglycemia Standing Ord. Last Admin: 02/05/22 06:35 Dose: 25 gm Documented By: TRACEY Fentanyl (Fentanyl 25 Mcg Patch.Td72) 25 mcg TRANSDERMA Q3D [facility] Last Admin: 02/08/22 09:46 Dose: 25 mcg Documented By: BENTON Fluticasone Propionate (Fluticasone Propionate Nasal 16 Gm [place]) 1 spray NOSTRIL-B DAILY [facility] Last Admin: 02/08/22 09:30 Dose: 1 spray Documented By: BENTON Glucose (Glucose Gel 15 Gm Gel..Gram.) 15 gm PO Q15M PRN; Protocol PRN Reason: per Hypoglycemia Standing Ord. Hydromorphone HCl (Hydromorphone Hcl 0.5 Mg/0.5 Ml Syringe) 0.25 mg IVPUSH Q4H PRN; Protocol PRN Reason: Breakthrough Pain Last Admin: 02/07/22 22:09 Dose: 0.25 mg Documented By: HARRY Fluconazole 100 mg/ IV (Miscellaneous Supplies) 50 mls @ 50 mls/hr IV Q24H [facility] Last Infusion: 02/07/22 11:53 Dose: 0 mls/hr Documented By: BENTON Acyclovir Sodium 235 mg/ (Sodium Chloride) 104.7 mls @ 104.7 mls/hr IV Q8H [facility] Last Infusion: 02/08/22 01:00 Dose: 0 mls/hr Documented By: HARRY Sodium Chloride (Ns) 1,000 mls @ 100 mls/hr IVCONT .Q10H [facility] Stop: 02/08/22 18:14 Last Admin: 02/08/22 09:41 Dose: 100 mls/hr Documented By: BENTON Lidocaine/Diphenhydr/Alum/Mg/Simeth (Mag&Al/Sim/Diphenhyd/Lidocaine 10 Ml Oral.Susp) 10 ml PO Q4H [facility]; Protocol Last Admin: 02/08/22 09:29 Dose: 10 ml Documented By: BENTON Melatonin (Melatonin 3 Mg Tablet) 6 mg PO BEDTIME PRN PRN Reason: Insomnia Multivitamins/Vitamin C (Multivitamin Tablet) 1 tab PO DAILY [facility] Last Admin: 02/08/22 09:29 Dose: 1 tab Documented By: BENTON Ondansetron HCl (Ondansetron Hcl 4 Mg/2 Ml Vial) 4 mg IVPUSH Q4H PRN PRN Reason: nausea;vomting Oxybutynin Chloride (Oxybutynin Chloride Er 5 Mg Tab.Er.24) 10 mg PO DAILY [facility] Last Admin: 02/08/22 09:29 Dose: 10 mg Documented By: BENTON Oxycodone HCl (Oxycodone Hcl Immed Release 5 Mg Tablet) 5 mg PO Q4H PRN PRN Reason: Pain, breakthrough Last Admin: 02/07/22 18:46 Dose: 5 mg Documented By: BENTON Senna/Docusate Sodium (Sennosides/Docusate Sodium Tablet) 2 tab PO DAILY PRN PRN Reason: Constipation Sodium Chloride (0.9 % Sodium Chloride Flush 3 Ml Syringe) 3 ml IVFLUSH QSHIFT [facility] Last Admin: 02/08/22 09:30 Dose: Not Given Documented By: BENTON Non-Admin Reason: IV Running Thiamine HCl (Thiamine Hcl 100 Mg Tablet) 100 mg PO DAILY [facility] Last Admin: 02/08/22 09:29 Dose: 100 mg Documented By: BENTON Trazodone HCl (Trazodone Hcl 50 Mg Tablet) 50 mg PO BEDTIME [facility] Last Admin: 02/07/22 21:58 Dose: 50 mg Documented By: HARRY Labs CBC & Chem 7: 02/08/22 06:08 02/08/22 06:08 Labs: Laboratory Results - last 24 hr 02/07/22 02/07/22 02/07/22 11:28 15:22 19:29 MCV MCH MCHC RDW Plt Count MPV Absolute Nucleated RBC Nucleated RBC % (auto) Anion Gap Estim Creat Clear Calc Estimated GFR POC Glucose 106 69 83 Random Glucose Calcium 02/08/22 02/08/22 02/08/22 06:08 06:08 07:34 MCV 86.3 MCH 28.1 MCHC 32.6 RDW 17.5 H Plt Count 268 MPV 9.8 Absolute Nucleated RBC 0.000 Nucleated RBC % (auto) 0.0 Anion Gap 9 L Estim Creat Clear Calc 71.1 Estimated GFR > 60 POC Glucose 69 Random Glucose 68 Calcium 6.9 L Assessment and Plan (1) Candidiasis: Status: Acute Plan hospital d#5 67yo F with 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 + recurrent UTIs, severe malnutrition presented after fall and weakness, admitted with severe anemia found to have candidiasis, oral and likely esophageal also oral HSV hypoglycemic due to malnutrition found to have RLE DVT # malignancy-associated DVT - start apixaban lower dose 5 mg bid due to very low body weight # BRBPR - GI consulted, likely rectal bleeding from hemorrhoids vs colon involvement with metastatic dz, continue AC for now and monitor Hb # anemia of chronic disease - transfused 2u pRBCs 02/05 with appropriate increase in H+H # hypoglycemia related to poor PO intake - d/c D5 1/2 NS and continue to monitor BG # hypovolemic hyponatremia - mild- will give 1L NS and recheck BMP in AM # candidiasis, oral and suspected esophageal - fluconazole 200 mg once 02/05, then 100 mg daily, on d#10/24 - WAGE AND SALARY SPECIALIST consulted re dysphagia. give NDD 1 solids, thin liquids # possible oral HSV - acyclovir 5 mg/kg q8h per ID d#3 # possible UTI - UCX difficult to interpret with enterovesical fistula. given 1 dose of ceftriaxone in ED. no symptoms; per ID no UTI # severe protein-calorie malnutrition - Ensure 1 can tid # metastatic ovarian CA - not on treatment. per discussion with pt, , and daughter Jaquelin via phone, goals of care are palliation of symptoms at this point; however, she is not interested in hospice care. - continue fentanyl patch with oxycodone prn breakthrough pain # VTE ppx - on apixaban # dispo - anticipate home when improved In my clinical judgment, the patient requires continued hospitalization for the following reasons: IV fluids, IV antifungal/antiviral Quality Stroke Does the patient have a stroke diagnosis?: No VTE Prior VTE?: No VTE Risk Level:: Medical - moderate - high VTE Device Contraindication: Treatment Not Indicated VTE Drug Contraindication: N/A - Med Ordered
[2022-02-08] MEDS: Fluconazole in NaCl,Iso-Osm 100 MG in Container,Empty 0 ML 50 MG IV (10:37)
[2022-02-08 11:29] LABS: Glucose, Whole Blood 88 mg/dL (60-115)
[2022-02-08 11:56] VITALS: BP 102/51; PULSE 87; RESP 20; TEMP 36.7; O2SAT 96
--- NOTE | 2022-02-08 13:49 | MHC.SL.SWA ---
Speech Pathologist Impression: Oropharyngeal dysphagia Risk of Aspiration Due to: Poor PO Intake Dysphasia Diet Status: Recommend continue w/ pureed solids and thin liquids. COLD FOOD PACKER will continue to follow to monitor tolerance and assess for potential upgrade. Liquid Consistency and Strategies for Safe Swallow: Liquid Intake Recommendation: Thin Liquid Intake Strategies: Small Sips Solid Food Consistency: Dietary Recommendations: Pureed (NDD1) Additional Modifications to Solid Foods: Due to extensive report of oral pain by patient, she may be reluctant to take food/liquid orally at this time, and only take small amounts at any presentation of a meal. Pt will need supervision during meals to assure that she is able to tolerate eating due to currently level of reported oral pain. Would recommend providing smaller, more frequent meals to encourage PO intake. Oral Medication Intake: Crushed with Puree Please contact the pharmacy regarding appropriate crushable or liquid drug formulations that are available whenever modified delivery is recommended. Compensatory Strategies and Precautions to be Taken for Safe Swallow: Sitting Upright (90 deg) Small Bites and Sips Alternate Liquids/Solids Rate of Ingestion Change Supervision While Eating and Drinking for Safe Swallow: Total Supervision (1:1) Foods to Avoid: Difficulty to chew solids. Swallowing Recommended Treatments: Compens. Strategy Educat. Recommendation for Speech: Inpatient Speech Therapy Electrical Designer Drafter Clinican/Clinical Fellow: No Supervisory Statement: I have reviewed and agree with the student/clinical fellow's documentation: N/A Speech Language Pathologist: Yoly Figueroa M.A., [facility]-COLD FOOD PACKER
[2022-02-08] MEDS: oxyCODONE HCl Immed Release 5 MG TABLET PO ×2 (14:39→20:44)
[2022-02-08 15:55] VITALS: BP 109/72; PULSE 73; RESP 18; TEMP 37.7; O2SAT 96
[2022-02-08 16:07] LABS: Glucose, Whole Blood 96 mg/dL (60-115)
[2022-02-08 19:18] VITALS: BP 111/71; PULSE 78; RESP 18; TEMP 37.5; O2SAT 98
[2022-02-08 19:44] LABS: Glucose, Whole Blood 76 mg/dL (60-115)
[2022-02-08] MEDS: traZODone HCL 50 MG TABLET PO (20:36)
[2022-02-08] MEDS: Dextrose 5 % and Lactated Ring 1,000 ML 50 ML IVCONT (22:35)
[2022-02-09] VITALS: BP 105/53; PULSE 91; RESP 18; TEMP 37.2; O2SAT 97
[2022-02-09] MEDS: Mag&Al/Sim/Diphenhyd/Lidocaine 10 ML ORAL.SUSP PO ×6 (00:27→20:00)
[2022-02-09] MEDS: oxyCODONE HCl Immed Release 5 MG TABLET PO ×3 (03:18→13:46)
[2022-02-09 04:00] VITALS: BP 114/56; PULSE 90; RESP 18; TEMP 37.1; O2SAT 93
[2022-02-09 05:46] LABS: Hematocrit 32.9 % (37.0-47.0); Hemoglobin 10.6 g/dl (12.0-16.0)
[2022-02-09 06:07] LABS: Anion Gap 8 (12-20); Blood Urea Nitrogen 7 mg/dL (9-16); Calcium 7.2 mg/dL (8.4-10.2); Carbon Dioxide 27 mmol/L (22-29); Chloride 103 mmol/L (96-108); Creatinine Clr Calc Pharmacy 71.1; Estimated Glomerular Filt Rate > 60; Glucose Random 64 mg/dL (60-115); Potassium 4.4 mmol/L (3.3-5.1); Sodium 134 mmol/L (135-145)
[2022-02-09 08:00] VITALS: BP 93/50; PULSE 90; RESP 17; TEMP 36.6; O2SAT 93
[2022-02-09 08:01] LABS: Glucose, Whole Blood 67 mg/dL (60-115)
[2022-02-09] MEDS: 0.9 % Sodium Chloride Flush 3 ML SYRINGE IVFLUSH ×2 (08:31→17:07)
[2022-02-09] MEDS: Fluticasone Propionate Nasal 16 GM SPRAY 1 SPRAY NOSTRIL-B (08:32)
[2022-02-09] MEDS: Apixaban 5 MG TABLET 10 MG PO ×2 (09:02→20:00)
[2022-02-09] MEDS: Multivitamin TABLET 1 TAB PO (09:03)
[2022-02-09] MEDS: HYDROmorphone HCl 0.5 MG/0.5 ML SYRINGE 0.25 MG IVPUSH ×2 (09:03→13:45)
[2022-02-09] MEDS: Thiamine HCL 100 MG TABLET PO (09:04)
[2022-02-09 12:00] VITALS: BP 98/54; PULSE 86; RESP 12; TEMP 36.6; O2SAT 94
[2022-02-09 12:17] LABS: Glucose, Whole Blood 88 mg/dL (60-115)
--- NOTE | 2022-02-09 12:21 | P.PNIM_ITS ---
Subjective Subjective Date of Service: 02/09/22 <Deborah Johnson NP - Last Filed: 02/09/22 13:50> 03/09/22 <Domenic Kirkland MD - Last Filed: 03/09/22 16:02> Review of Systems Mouth pain slightly improved Hypoglycemia improved Chronic abd/pelvic pain from CA Had a little bright red blood mixed with stool yesterday US positive for RLE DVT; started apixaban <Deborah Johnson NP - Last Filed: 02/09/22 13:50> Physical Exam Vital Signs: Vital Signs: Last Vital Signs Temp 97.9 F 02/09/22 08:00 Pulse 90 02/09/22 08:00 Resp 17 02/09/22 08:00 BP 93/50 L 02/09/22 08:00 Pulse Ox 93 02/09/22 08:00 O2 Del Method 02/09/22 08:00 O2 Flow Rate 2 02/06/22 03:48 BMI result Body Mass Index 19.5 <Deborah Johnson NP - Last Filed: 02/09/22 13:50> Appearing in no acute distress lung sounds are clear to auscultation heart regular rate rhythm, clear S1, S2 positive bowel sounds, abdomen is soft, nontender neuro patient is alert x3, no focal deficits <Deborah Johnson NP - Last Filed: 02/09/22 13:50> Objective Data Active Medications Apixaban (Apixaban 5 Mg Tablet) 10 mg PO BID [facility] Stop: 02/14/22 09:01 Last Admin: 02/09/22 09:02 Dose: 10 mg Documented By: JUAN DIEGO Dextrose (Dextrose 50 % 25 Gm/50 Ml Syringe) 25 gm IVPUSH Q15M PRN; Protocol PRN Reason: per Hypoglycemia Standing Ord. Last Admin: 02/05/22 06:35 Dose: 25 gm Documented By: TRACEY Fentanyl (Fentanyl 25 Mcg Patch.Td72) 25 mcg TRANSDERMA Q3D [facility] Last Admin: 02/08/22 09:46 Dose: 25 mcg Documented By: BENTON Fluticasone Propionate (Fluticasone Propionate Nasal 16 Gm [place]) 1 spray NOSTRIL-B DAILY [facility] Last Admin: 02/09/22 08:32 Dose: 1 spray Documented By: JUAN DIEGO Glucose (Glucose Gel 15 Gm Gel..Gram.) 15 gm PO Q15M PRN; Protocol PRN Reason: per Hypoglycemia Standing Ord. Hydromorphone HCl (Hydromorphone Hcl 0.5 Mg/0.5 Ml Syringe) 0.25 mg IVPUSH Q4H PRN; Protocol PRN Reason: Breakthrough Pain Last Admin: 02/09/22 09:03 Dose: 0.25 mg Documented By: JUAN DIEGO Fluconazole 100 mg/ IV (Miscellaneous Supplies) 50 mls @ 50 mls/hr IV Q24H [facility] Last Infusion: 02/08/22 12:17 Dose: 0 mls/hr Documented By: BENTON Acyclovir Sodium 235 mg/ (Sodium Chloride) 104.7 mls @ 104.7 mls/hr IV Q8H [facility] Last Infusion: 02/09/22 10:19 Dose: 0 mls/hr Documented By: JUAN DIEGO Dextrose/Lactated Ringer's (D5lr) 1,000 mls @ 50 mls/hr IVCONT .Q20H [facility] Last Admin: 02/08/22 22:35 Dose: 50 mls/hr Documented By: [place] Lidocaine/Diphenhydr/Alum/Mg/Simeth (Mag&Al/Sim/Diphenhyd/Lidocaine 10 Ml Oral.Susp) 10 ml PO Q4H [facility]; Protocol Last Admin: 02/09/22 09:02 Dose: 10 ml Documented By: JUAN DIEGO Melatonin (Melatonin 3 Mg Tablet) 6 mg PO BEDTIME PRN PRN Reason: Insomnia Multivitamins/Vitamin C (Multivitamin Tablet) 1 tab PO DAILY [facility] Last Admin: 02/09/22 09:03 Dose: 1 tab Documented By: JUAN DIEGO Ondansetron HCl (Ondansetron Hcl 4 Mg/2 Ml Vial) 4 mg IVPUSH Q4H PRN PRN Reason: nausea;vomting Oxybutynin Chloride (Oxybutynin Chloride Er 5 Mg Tab.Er.24) 10 mg PO DAILY [facility] Last Admin: 02/09/22 09:06 Dose: 10 mg Documented By: JUAN DIEGO Oxycodone HCl (Oxycodone Hcl Immed Release 5 Mg Tablet) 5 mg PO Q4H PRN PRN Reason: Pain, breakthrough Last Admin: 02/09/22 09:03 Dose: 5 mg Documented By: JUAN DIEGO Senna/Docusate Sodium (Sennosides/Docusate Sodium Tablet) 2 tab PO DAILY PRN PRN Reason: Constipation Sodium Chloride (0.9 % Sodium Chloride Flush 3 Ml Syringe) 3 ml IVFLUSH QSHIFT [facility] Last Admin: 02/09/22 08:31 Dose: 3 ml Documented By: JUAN DIEGO Thiamine HCl (Thiamine Hcl 100 Mg Tablet) 100 mg PO DAILY [facility] Last Admin: 02/09/22 09:04 Dose: 100 mg Documented By: JUAN DIEGO Trazodone HCl (Trazodone Hcl 50 Mg Tablet) 50 mg PO BEDTIME [facility] Last Admin: 02/08/22 20:36 Dose: 50 mg Documented By: FAWN <Deborah Johnson NP - Last Filed: 02/09/22 13:50> Labs CBC & Chem 7: : 02/09/22 05:21 02/15/22 05:36 <Deborah Johnson NP - Last Filed: 02/09/22 13:50> Labs: Laboratory Results - last 24 hr 02/08/22 02/08/22 02/09/22 15:45 19:40 05:21 Anion Gap 8 L Estim Creat Clear Calc 71.1 Estimated GFR > 60 POC Glucose 96 76 Random Glucose 64 Calcium 7.2 L 02/09/22 02/09/22 07:41 12:01 Anion Gap Estim Creat Clear Calc Estimated GFR POC Glucose 67 88 Random Glucose Calcium <Deborah Johnson NP - Last Filed: 02/09/22 13:50> Assessment and Plan (1) Candidiasis: Status: Resolved <Deborah Johnson NP - Last Filed: 02/09/22 13:50> Assessment and Plan: 67yo F with 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 + recurrent UTIs, severe malnutrition presented after fall and weakness, admitted with severe anemia found to have candidiasis, oral and likely esophageal also oral HSV hypoglycemic due to malnutrition found to have RLE DVT # malignancy-associated DVT - start apixaban lower dose 5 mg bid due to very low body weight # BRBPR - GI consulted, likely rectal bleeding from hemorrhoids vs colon involvement with metastatic dz, continue AC for now and monitor Hb # anemia of chronic disease - transfused 2u pRBCs 02/05 with appropriate increase in H+H # hypoglycemia related to poor PO intake - d/c D5 1/2 NS and continue to monitor BG # hypovolemic hyponatremia - mild- will give 1L NS and recheck BMP in AM # candidiasis, oral and suspected esophageal - fluconazole 200 mg once 02/05, then 100 mg daily, on d#3/ - ACID CRANE OPERATOR consulted re dysphagia. give NDD 1 solids, thin liquids # possible oral HSV - acyclovir 5 mg/kg q8h per ID d#3 # possible UTI - UCX difficult to interpret with enterovesical fistula. given 1 dose of ceftriaxone in ED. no symptoms; per ID no UTI # severe protein-calorie malnutrition - Ensure 1 can tid # metastatic ovarian CA - not on treatment. per discussion with pt, , and daughter Jaquelin via phone, goals of care are palliation of symptoms at this point; however, she is not interested in hospice care. - continue fentanyl patch with oxycodone prn breakthrough pain # VTE ppx - on apixaban # dispo - anticipate home when improved In my clinical judgment, the patient requires continued hospitalization for the following reasons: IV fluids, IV antifungal/antiviral <Deborah Johnson NP - Last Filed: 02/09/22 13:50> Quality Stroke Does the patient have a stroke diagnosis?: No <Deborah Johnson NP - Last Filed: 02/09/22 13:50> VTE Prior VTE?: No <Deborah Johnson NP - Last Filed: 02/09/22 13:50> VTE Risk Level:: Medical - moderate - high <Deborah Johnson NP - Last Filed: 02/09/22 13:50> VTE Device Contraindication: Treatment Not Indicated <Deborah Johnson NP - Last Filed: 02/09/22 13:50> VTE Drug Contraindication: N/A - Med Ordered <Deborah Johnson NP - Last Filed: 02/09/22 13:50>
[2022-02-09] MEDS: Fluconazole in NaCl,Iso-Osm 100 MG in Container,Empty 0 ML 50 MG IV (13:10)
[2022-02-09 16:10] VITALS: BP 107/53; PULSE 90; RESP 20; TEMP 36.8; O2SAT 95
[2022-02-09] MEDS: Dextrose 5 % and Lactated Ring 1,000 ML 50 ML IVCONT (16:51)
[2022-02-09 17:18] LABS: Glucose, Whole Blood 75 mg/dL (60-115)
[2022-02-09 19:46] VITALS: BP 108/54; PULSE 90; RESP 20; TEMP 36.8; O2SAT 96
[2022-02-09] MEDS: traZODone HCL 50 MG TABLET PO (20:00)
[2022-02-09 20:38] LABS: Glucose, Whole Blood 53 mg/dL (60-115)
[2022-02-09 20:39] LABS: Glucose, Whole Blood 52 mg/dL (60-115)
[2022-02-09] MEDS: Dextrose 50 % 25 GM/50 ML SYRINGE IVPUSH (20:39)
[2022-02-09] MEDS: Dextrose 10 % 1,000 ML 50 ML IVCONT (21:00)
[2022-02-09 21:10] LABS: Glucose, Whole Blood 143 mg/dL (60-115)
[2022-02-10] VITALS (7 sets, daily range): BP systolic 92–122; BP diastolic 38–56; PULSE 88–136; RESP 14–22; TEMP 36.1–37.6; O2SAT 93–98
[2022-02-10] MEDS: 0.9 % Sodium Chloride Flush 3 ML SYRINGE IVFLUSH ×3 (00:57→15:18)
--- NOTE | 2022-02-10 02:26 | PC.NURSE ---
At 1999 on 02/09/22 PT BS 53, orange juice and belarusian ice given to PT at 2029 PT BS 52, notified and at 2044 D50 given IV. At 2104 PT BS 142, IV fluids changed from D5 LR to Dextrose 10%.
[2022-02-10] MEDS: HYDROmorphone HCl 0.5 MG/0.5 ML SYRINGE 0.25 MG IVPUSH ×3 (05:43→15:46)
[2022-02-10 07:49] LABS: Glucose, Whole Blood 98 mg/dL (60-115)
[2022-02-10] MEDS: Apixaban 5 MG TABLET 10 MG PO ×2 (08:16→22:54)
[2022-02-10] MEDS: oxyCODONE HCl Immed Release 5 MG TABLET PO ×3 (08:17→22:59)
[2022-02-10] MEDS: Mag&Al/Sim/Diphenhyd/Lidocaine 10 ML ORAL.SUSP PO ×4 (08:19→22:55)
[2022-02-10] MEDS: Multivitamin TABLET 1 TAB PO (08:19)
[2022-02-10] MEDS: Fluticasone Propionate Nasal 16 GM SPRAY 1 SPRAY NOSTRIL-B (08:21)
[2022-02-10] MEDS: Thiamine HCL 100 MG TABLET PO (08:29)
--- NOTE | 2022-02-10 10:36 | HO.PM.IMPN ---
Subjective Subjective Date of Service: 02/10/22 <Deborah Johnson NP - Last Filed: 02/10/22 10:45> 02/15/22 <Duarte Correa MD - Last Filed: 02/15/22 09:44> Review of Systems Follow up FTT Mouth pain slightly improved still with Chronic abd/pelvic pain from CA <Deborah Johnson NP - Last Filed: 02/10/22 10:45> Physical Exam Vital Signs: Vital Signs: Last Vital Signs Temp 99.1 F 02/10/22 07:26 Pulse 102 H 02/10/22 07:26 Resp 18 02/10/22 07:26 BP 97/50 L 02/10/22 07:26 Pulse Ox 96 02/10/22 07:26 O2 Del Method 02/10/22 07:26 O2 Flow Rate 2 02/06/22 03:48 BMI result Body Mass Index 19.5 <Deborah Johnson NP - Last Filed: 02/10/22 10:45> Appearing in no acute distress, thin and frail lung sounds are clear to auscultation heart regular rate rhythm, clear S1, S2 positive bowel sounds, abdomen is soft, nontender neuro patient is alert x3, no focal deficits <Deborah Johnson NP - Last Filed: 02/10/22 10:45> Objective Data Active Medications Apixaban (Apixaban 5 Mg Tablet) 10 mg PO BID [facility] Stop: 02/14/22 09:01 Last Admin: 02/10/22 08:16 Dose: 10 mg Documented By: JUAN DIEGO Dextrose (Dextrose 50 % 25 Gm/50 Ml Syringe) 25 gm IVPUSH Q15M PRN; Protocol PRN Reason: per Hypoglycemia Standing Ord. Last Admin: 02/09/22 20:39 Dose: 25 gm Documented By: MORRINL Fentanyl (Fentanyl 25 Mcg Patch.Td72) 25 mcg TRANSDERMA Q3D [facility] Last Admin: 02/08/22 09:46 Dose: 25 mcg Documented By: BENTON Fluticasone Propionate (Fluticasone Propionate Nasal 16 Gm [place]) 1 spray NOSTRIL-B DAILY [facility] Last Admin: 02/10/22 08:21 Dose: 1 spray Documented By: JUAN DIEGO Glucose (Glucose Gel 15 Gm Gel..Gram.) 15 gm PO Q15M PRN; Protocol PRN Reason: per Hypoglycemia Standing Ord. Hydromorphone HCl (Hydromorphone Hcl 0.5 Mg/0.5 Ml Syringe) 0.25 mg IVPUSH Q4H PRN; Protocol PRN Reason: Breakthrough Pain Last Admin: 02/10/22 05:43 Dose: 0.25 mg Documented By: MORRINL Fluconazole 100 mg/ IV (Miscellaneous Supplies) 50 mls @ 50 mls/hr IV Q24H [facility] Last Infusion: 02/09/22 15:20 Dose: 0 mls/hr Documented By: JUAN DIEGO Acyclovir Sodium 235 mg/ (Sodium Chloride) 104.7 mls @ 104.7 mls/hr IV Q8H [facility] Last Admin: 02/10/22 09:35 Dose: 104.7 mls/hr Documented By: JUAN IDEGO Dextrose (D10) 1,000 mls @ 50 mls/hr IVCONT .Q20H [facility] Last Admin: 02/09/22 21:00 Dose: 50 mls/hr Documented By: [place] Lidocaine/Diphenhydr/Alum/Mg/Simeth (Mag&Al/Sim/Diphenhyd/Lidocaine 10 Ml Oral.Susp) 10 ml PO Q4H [facility]; Protocol Last Admin: 02/10/22 08:19 Dose: 10 ml Documented By: JUAN DIEGO Melatonin (Melatonin 3 Mg Tablet) 6 mg PO BEDTIME PRN PRN Reason: Insomnia Multivitamins/Vitamin C (Multivitamin Tablet) 1 tab PO DAILY [facility] Last Admin: 02/10/22 08:19 Dose: 1 tab Documented By: JUAN DIEGO Ondansetron HCl (Ondansetron Hcl 4 Mg/2 Ml Vial) 4 mg IVPUSH Q4H PRN PRN Reason: nausea;vomting Oxybutynin Chloride (Oxybutynin Chloride Er 5 Mg Tab.Er.24) 10 mg PO DAILY [facility] Last Admin: 02/10/22 08:16 Dose: 10 mg Documented By: JUAN DIEGO Oxycodone HCl (Oxycodone Hcl Immed Release 5 Mg Tablet) 5 mg PO Q4H PRN PRN Reason: Pain, breakthrough Last Admin: 02/10/22 08:17 Dose: 5 mg Documented By: HO.NGENOAL Senna/Docusate Sodium (Sennosides/Docusate Sodium Tablet) 2 tab PO DAILY PRN PRN Reason: Constipation Sodium Chloride (0.9 % Sodium Chloride Flush 3 Ml Syringe) 3 ml IVFLUSH QSHIFT [facility] Last Admin: 02/10/22 08:16 Dose: 3 ml Documented By: JUAN DIEGO Thiamine HCl (Thiamine Hcl 100 Mg Tablet) 100 mg PO DAILY [facility] Last Admin: 02/10/22 08:29 Dose: 100 mg Documented By: JUAN DIEGO Trazodone HCl (Trazodone Hcl 50 Mg Tablet) 50 mg PO BEDTIME [facility] Last Admin: 02/09/22 20:00 Dose: 50 mg Documented By: DAVIDRINL <Deborah Johnson NP - Last Filed: 02/10/22 10:45> Labs CBC & Chem 7: : 02/09/22 05:21 02/15/22 05:36 <Deborah Johnson NP - Last Filed: 02/10/22 10:45> Labs: Laboratory Results - last 24 hr 02/09/22 02/09/22 02/09/22 12:01 17:11 19:49 POC Glucose 88 75 53 L* 02/09/22 02/09/22 02/10/22 20:25 21:05 07:38 POC Glucose 52 L* 143 H 98 <Deborah Johnson NP - Last Filed: 02/10/22 10:45> Microbiology Microbiology Results: Microbiology 02/04/22 17:35 Blood Culture - Final Blood - Venous No growth after 5 days. 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 + recurrent UTIs, severe malnutrition presented after fall and weakness, admitted with severe anemia found to have candidiasis, oral and likely esophageal also oral HSV hypoglycemic due to malnutrition found to have RLE DVT Malignancy-associated DVT continue apixaban lower dose 5 mg bid due to very low body weight BRBPR GI consulted, likely rectal bleeding from hemorrhoids vs colon involvement with metastatic dz, continue AC for now and monitor Hb Anemia of chronic disease transfused 2u pRBCs 02/05 with appropriate increase in H+H Hypoglycemia related to poor PO intake continue to monitor IV fluids Hypovolemic hyponatremia mild follow BMP Candidiasis, oral and suspected esophageal fluconazole 200 mg once 02/05, then 100 mg daily for [address] MIXER OPERATOR consulted re dysphagia. give NDD 1 solids, thin liquids Possible oral HSV acyclovir 5 mg/kg q8h per ID adult FTT/Severe protein-calorie malnutrition Ensure 1 can tid IV fluids Metastatic ovarian CA not on treatment. per discussion with pt, , and daughter Jaquelin via phone, goals of care are palliation of symptoms at this point; however, she is not interested in hospice care. continue fentanyl patch with oxycodone prn breakthrough pain VTE ppx on apixaban Attending Dr. Sunny Mooneyo anticipate home when improved continued hospitalization for IV pain medication, IV antivirals and new malignancy related DVT <Deborah Johnson NP - Last Filed: 02/10/22 10:45> Quality Stroke Does the patient have a stroke diagnosis?: No <Deborah Johnson NP - Last Filed: 02/10/22 10:45> VTE Prior VTE?: No <Deborah Johnson NP - Last Filed: 02/10/22 10:45> VTE Risk Level:: Medical - moderate - high <Deborah Johnson NP - Last Filed: 02/10/22 10:45> VTE Device Contraindication: Treatment Not Indicated <Deborah Johnson NP - Last Filed: 02/10/22 10:45> VTE Drug Contraindication: N/A - Med Ordered <Deborah Johnson NP - Last Filed: 02/10/22 10:45>
[2022-02-10] MEDS: Fluconazole in NaCl,Iso-Osm 100 MG in Container,Empty 0 ML 50 MG IV (11:31)
[2022-02-10 12:00] LABS: Glucose, Whole Blood 81 mg/dL (60-115)
[2022-02-10 16:57] LABS: Glucose, Whole Blood 106 mg/dL (60-115)
[2022-02-10] MEDS: Dextrose 10 % 1,000 ML 50 ML IVCONT (18:54)
[2022-02-10 20:44] LABS: Glucose, Whole Blood 104 mg/dL (60-115)
[2022-02-10] MEDS: traZODone HCL 50 MG TABLET PO (22:54)
[2022-02-11] VITALS: BP 102/45; PULSE 104; RESP 14; TEMP 37.2; O2SAT 95
[2022-02-11] MEDS: HYDROmorphone HCl 0.5 MG/0.5 ML SYRINGE 0.25 MG IVPUSH (00:38)
[2022-02-11] MEDS: Dextrose 10 % 1,000 ML 50 ML IVCONT (00:42)
[2022-02-11 03:25] VITALS: BP 102/55; PULSE 106; RESP 18; TEMP 36.4; O2SAT 93
[2022-02-11] MEDS: Mag&Al/Sim/Diphenhyd/Lidocaine 10 ML ORAL.SUSP PO ×5 (06:27→21:24)
--- NOTE | 2022-02-11 06:29 | PC.NURSE ---
at 0515 am pt had seizure blank out / stare into space for few seconds. notified order rcd for ativan 1 mg iv given pt awake now normal to pt. blood glucose taken poc= 185.
[2022-02-11 07:37] LABS: Glucose, Whole Blood 96 mg/dL (60-115)
[2022-02-11 07:52] VITALS: BP 92/47; PULSE 85; RESP 16; TEMP 37.6; O2SAT 94
[2022-02-11] MEDS: Thiamine HCL 100 MG TABLET PO (08:41)
[2022-02-11] MEDS: Apixaban 5 MG TABLET 10 MG PO ×2 (08:41→21:24)
[2022-02-11] MEDS: Multivitamin TABLET 1 TAB PO (08:41)
[2022-02-11] MEDS: Fluticasone Propionate Nasal 16 GM SPRAY 1 SPRAY NOSTRIL-B (09:15)
[2022-02-11] MEDS: fentaNYL 25 MCG PATCH.TD72 TRANSDERMA (09:26)
--- NOTE | 2022-02-11 10:25 | P.PNIM_ITS ---
Subjective Subjective Date of Service: 02/11/22 Review of Systems Follow up FTT Mouth pain slightly improved still with Chronic abd/pelvic pain from CA Physical Exam Vital Signs: Vital Signs: Last Vital Signs Temp 99.7 F 02/11/22 07:52 Pulse 85 02/11/22 07:52 Resp 16 02/11/22 07:52 BP 92/47 L 02/11/22 07:52 Pulse Ox 94 02/11/22 07:52 O2 Del Method 02/11/22 07:52 O2 Flow Rate 2 02/11/22 00:00 BMI result Body Mass Index 19.5 Appearing in no acute distress, thin and frail lung sounds are clear to auscultation heart regular rate rhythm, clear S1, S2 positive bowel sounds, abdomen is soft, nontender neuro patient is alert x3, no focal deficits Objective Data Active Medications Apixaban (Apixaban 5 Mg Tablet) 10 mg PO BID [facility] Stop: 02/14/22 09:01 Last Admin: 02/11/22 08:41 Dose: 10 mg Documented By: BENTON Dextrose (Dextrose 50 % 25 Gm/50 Ml Syringe) 25 gm IVPUSH Q15M PRN; Protocol PRN Reason: per Hypoglycemia Standing Ord. Last Admin: 02/09/22 20:39 Dose: 25 gm Documented By: DAVIDRINCampbell Fentanyl (Fentanyl 25 Mcg Patch.Td72) 25 mcg TRANSDERMA Q3D [facility] Last Admin: 02/11/22 09:26 Dose: 25 mcg Documented By: BENTON Fluticasone Propionate (Fluticasone Propionate Nasal 16 Gm [place]) 1 spray NOSTRIL-B DAILY [facility] Last Admin: 02/11/22 09:15 Dose: 1 spray Documented By: BENTON Glucose (Glucose Gel 15 Gm Gel..Gram.) 15 gm PO Q15M PRN; Protocol PRN Reason: per Hypoglycemia Standing Ord. Hydromorphone HCl (Hydromorphone Hcl 0.5 Mg/0.5 Ml Syringe) 0.25 mg IVPUSH Q4H PRN; Protocol PRN Reason: Breakthrough Pain Last Admin: 02/11/22 00:38 Dose: 0.25 mg Documented By: PHOEN[place] Fluconazole 100 mg/ IV (Miscellaneous Supplies) 50 mls @ 50 mls/hr IV Q24H [facility] Last Infusion: 02/10/22 12:42 Dose: 0 mls/hr Documented By: JUAN DIEGO Acyclovir Sodium 235 mg/ (Sodium Chloride) 104.7 mls @ 104.7 mls/hr IV Q8H [facility] Last Admin: 02/11/22 09:09 Dose: 104.7 mls/hr Documented By: BENTON Dextrose (D10) 1,000 mls @ 50 mls/hr IVCONT .Q20H [facility] Last Admin: 02/11/22 00:42 Dose: 50 mls/hr Documented By: PHOEN[place] Lidocaine/Diphenhydr/Alum/Mg/Simeth (Mag&Al/Sim/Diphenhyd/Lidocaine 10 Ml Oral.Susp) 10 ml PO Q4H [facility]; Protocol Last Admin: 02/11/22 08:42 Dose: 10 ml Documented By: BENTON Melatonin (Melatonin 3 Mg Tablet) 6 mg PO BEDTIME PRN PRN Reason: Insomnia Multivitamins/Vitamin C (Multivitamin Tablet) 1 tab PO DAILY [facility] Last Admin: 02/11/22 08:41 Dose: 1 tab Documented By: BENTON Ondansetron HCl (Ondansetron Hcl 4 Mg/2 Ml Vial) 4 mg IVPUSH Q4H PRN PRN Reason: nausea;vomting Oxybutynin Chloride (Oxybutynin Chloride Er 5 Mg Tab.Er.24) 10 mg PO DAILY [facility] Last Admin: 02/11/22 08:41 Dose: 10 mg Documented By: BENTON Oxycodone HCl (Oxycodone Hcl Immed Release 5 Mg Tablet) 5 mg PO Q4H PRN PRN Reason: Pain, breakthrough Last Admin: 02/10/22 22:59 Dose: 5 mg Documented By: PHOEN[place] Senna/Docusate Sodium (Sennosides/Docusate Sodium Tablet) 2 tab PO DAILY PRN PRN Reason: Constipation Sodium Chloride (0.9 % Sodium Chloride Flush 3 Ml Syringe) 3 ml IVFLUSH QSHIFT [facility] Last Admin: 02/11/22 08:52 Dose: Not Given Documented By: BENTON Non-Admin Reason: IV Running Thiamine HCl (Thiamine Hcl 100 Mg Tablet) 100 mg PO DAILY [facility] Last Admin: 02/11/22 08:41 Dose: 100 mg Documented By: BENTON Trazodone HCl (Trazodone Hcl 50 Mg Tablet) 50 mg PO BEDTIME [facility] Last Admin: 02/10/22 22:54 Dose: 50 mg Documented By: PHOENIX Labs CBC & Chem 7: 02/09/22 05:21 02/09/22 05:21 Labs: Laboratory Results - last 24 hr 02/10/22 02/10/22 02/10/22 11:25 16:30 20:38 POC Glucose 81 106 104 02/11/22 07:33 POC Glucose 96 Assessment and Plan (1) Candidiasis: Status: Acute Plan 67yo F with 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 + recu rrent UTIs, severe malnutrition presented after fall and weakness, admitted with severe anemia found to have candidiasis, oral and likely esophageal also oral HSV hypoglycemic due to malnutrition found to have RLE DVT Chronic pain secondary to malignancy continue IV, fent patch and oral medications Malignancy-associated DVT continue apixaban lower dose 5 mg bid due to very low body weight [facility] GI consulted, likely rectal bleeding from hemorrhoids vs colon involvement with metastatic dz, continue AC for now and monitor Hb Anemia of chronic disease transfused 2u pRBCs 02/05 with appropriate increase in H+H Hypoglycemia related to poor PO intake continue to monitor IV fluids Hypovolemic hyponatremia mild follow BMP Candidiasis, oral and suspected esophageal fluconazole 200 mg once 02/05, then 100 mg daily for 9 days [employer]OMOBI[employer] consulted re dysphagia. give NDD 1 solids, thin liquids Possible oral HSV acyclovir 5 mg/kg q8h per ID adult FTT/Severe protein-calorie malnutrition Ensure 1 can tid IV fluids Metastatic ovarian CA not on treatment. per discussion with pt, , and daughter Jaquelin via phone, goals of care are palliation of symptoms at this point; however, she is not interested in hospice care. continue fentanyl patch with oxycodone prn breakthrough pain VTE ppx on apixaban Attending Dr. Fortino Hoang anticipate home when improved continued hospitalization for IV pain medication, IV antivirals and new malignancy related DVT Quality Stroke Does the patient have a stroke diagnosis?: No VTE Prior VTE?: No VTE Risk Level:: Medical - moderate - high VTE Device Contraindication: Treatment Not Indicated VTE Drug Contraindication: N/A - Med Ordered
[2022-02-11] MEDS: Fluconazole in NaCl,Iso-Osm 100 MG in Container,Empty 0 ML 50 MG IV (11:03)
[2022-02-11 11:39] LABS: Glucose, Whole Blood 84 mg/dL (60-115)
[2022-02-11 12:00] VITALS: BP 100/58; PULSE 97; RESP 16; TEMP 37.4; O2SAT 94
--- NOTE | 2022-02-11 13:32 | MHC.CLN ---
F/U CONTINUES WITH USUALLY POOR INTAKE, 0-25%. DIET=PUREE WITH ENSURE TID (1050 KCALS, 60 G PROTEIN). NUTRITION DX SEVERE MALNUTRITION IN THE CONTEXT OF CHRONIC ILLNESS. SKIN: REDNESS TO BUTTOCKS AND LEFT HEEL. CONTINUE CURRENT DIET AND SUPPLEMENT. ENCOURAGE INTAKE ABLE. FOLLOW WEIGHTS, INTAKE, DIET TOLERANCE.
[2022-02-11 15:38] VITALS: BP 82/49; PULSE 89; RESP 20; TEMP 37; O2SAT 99
[2022-02-11] MEDS: oxyCODONE HCl Immed Release 5 MG TABLET PO ×2 (15:58→21:28)
[2022-02-11 16:36] LABS: Glucose, Whole Blood 134 mg/dL (60-115)
--- NOTE | 2022-02-11 16:43 | MHC.CM.PN ---
per multidisciplinary rounds pt cont's to had uncontrolled abd pain d/t CA and pt not ready for d/c today, cm will cont to follow d/c needs.
[2022-02-11 19:50] VITALS: BP 92/42; PULSE 92; RESP 18; TEMP 36.7; O2SAT 100
[2022-02-11 20:08] LABS: Glucose, Whole Blood 123 mg/dL (60-115)
[2022-02-11] MEDS: traZODone HCL 50 MG TABLET PO (21:24)
[2022-02-11] MEDS: 0.9 % Sodium Chloride Flush 3 ML SYRINGE IVFLUSH (21:24)
[2022-02-11] MEDS: Melatonin 3 MG TABLET 6 MG PO (21:28)
[2022-02-12] VITALS: BP 102/50; PULSE 101; RESP 16; TEMP 36.6; O2SAT 96
[2022-02-12] MEDS: Mag&Al/Sim/Diphenhyd/Lidocaine 10 ML ORAL.SUSP PO ×6 (01:21→20:50)
[2022-02-12 04:00] VITALS: BP 97/50; PULSE 102; RESP 14; TEMP 36.9; O2SAT 94
[2022-02-12 07:38] LABS: Glucose, Whole Blood 46 mg/dL (60-115)
[2022-02-12 07:52] VITALS: BP 91/46; PULSE 99; RESP 18; TEMP 37.1; O2SAT 93
[2022-02-12 08:03] LABS: Glucose, Whole Blood 51 mg/dL (60-115)
[2022-02-12 08:48] LABS: Glucose, Whole Blood 70 mg/dL (60-115)
[2022-02-12] MEDS: 0.9 % Sodium Chloride Flush 3 ML SYRINGE IVFLUSH (09:27)
[2022-02-12] MEDS: Dextrose 10 % 1,000 ML 75 ML IVCONT (09:27)
[2022-02-12] MEDS: Multivitamin TABLET 1 TAB PO (09:37)
[2022-02-12] MEDS: Fluticasone Propionate Nasal 16 GM SPRAY 1 SPRAY NOSTRIL-B (09:37)
[2022-02-12] MEDS: Thiamine HCL 100 MG TABLET PO (09:37)
[2022-02-12] MEDS: Apixaban 5 MG TABLET 10 MG PO ×2 (09:37→20:49)
--- NOTE | 2022-02-12 10:21 | P.PNIM_ITS ---
Subjective Subjective Date of Service: 02/12/22 Review of Systems Follow up FTT Mouth pain slightly improved still with Chronic abd/pelvic pain from CA Physical Exam Vital Signs: Vital Signs: Last Vital Signs Temp 98.7 F 02/12/22 07:52 Pulse 99 02/12/22 07:52 Resp 18 02/12/22 07:52 BP 91/46 L 02/12/22 07:52 Pulse Ox 93 02/12/22 07:52 O2 Del Method 02/12/22 07:52 O2 Flow Rate 2 02/11/22 00:00 BMI result Body Mass Index 19.5 Appearing thin and frail lung sounds are clear to auscultation heart regular rate rhythm, clear S1, S2 positive bowel sounds, abdomen is soft, diffuse tenderness neuro patient is alert x3, no focal deficits Objective Data Active Medications Apixaban (Apixaban 5 Mg Tablet) 10 mg PO BID [facility] Stop: 02/14/22 09:01 Last Admin: 02/12/22 09:37 Dose: 10 mg Documented By: IBAN Dextrose (Dextrose 50 % 25 Gm/50 Ml Syringe) 25 gm IVPUSH Q15M PRN; Protocol PRN Reason: per Hypoglycemia Standing Ord. Last Admin: 02/09/22 20:39 Dose: 25 gm Documented By: DAVIDRINCampbell Fentanyl (Fentanyl 25 Mcg Patch.Td72) 25 mcg TRANSDERMA Q3D [facility] Last Admin: 02/11/22 09:26 Dose: 25 mcg Documented By: BENTON Fluticasone Propionate (Fluticasone Propionate Nasal 16 Gm [place]) 1 spray N OSTRIL-B DAILY [facility] Last Admin: 02/12/22 09:37 Dose: 1 spray Documented By: IBAN Glucose (Glucose Gel 15 Gm Gel..Gram.) 15 gm PO Q15M PRN; Protocol PRN Reason: per Hypoglycemia Standing Ord. Hydromorphone HCl (Hydromorphone Hcl 0.5 Mg/0.5 Ml Syringe) 0.25 mg IVPUSH Q4H PRN; Protocol PRN Reason: Breakthrough Pain Last Admin: 02/11/22 00:38 Dose: 0.25 mg Documented By: PHOEN[place] Fluconazole 100 mg/ IV (Miscellaneous Supplies) 50 mls @ 50 mls/hr IV Q24H [facility] Last Infusion: 02/11/22 12:17 Dose: 0 mls/hr Documented By: BENTON Acyclovir Sodium 235 mg/ (Sodium Chloride) 104.7 mls @ 104.7 mls/hr IV Q8H [facility] Last Admin: 02/12/22 09:32 Dose: 104.7 mls/hr Documented By: IBAN Dextrose (D10) 1,000 mls @ 75 mls/hr IVCONT .[id number] [facility] Last Admin: 02/12/22 09:27 Dose: 75 mls/hr Documented By: IBAN Lidocaine/Diphenhydr/Alum/Mg/Simeth (Mag&Al/Sim/Diphenhyd/Lidocaine 10 Ml Oral.Susp) 10 ml PO Q4H [facility]; Protocol Last Admin: 02/12/22 09:37 Dose: 10 ml Documented By: IBAN Melatonin (Melatonin 3 Mg Tablet) 6 mg PO BEDTIME PRN PRN Reason: Insomnia Last Admin: 02/11/22 21:28 Dose: 6 mg Documented By: ANASTASIA Multivitamins/Vitamin C (Multivitamin Tablet) 1 tab PO DAILY [facility] Last Admin: 02/12/22 09:37 Dose: 1 tab Documented By: IBAN Ondansetron HCl (Ondansetron Hcl 4 Mg/2 Ml Vial) 4 mg IVPUSH Q4H PRN PRN Reason: nausea;vomting Oxybutynin Chloride (Oxybutynin Chloride Er 5 Mg Tab.Er.24) 10 mg PO DAILY [facility] Last Admin: 02/12/22 09:36 Dose: 10 mg Documented By: IBAN Oxycodone HCl (Oxycodone Hcl Immed Release 5 Mg Tablet) 5 mg PO Q4H PRN PRN Reason: Pain, Mild (Pain Scale 1-3) Senna/Docusate Sodium (Sennosides/Docusate Sodium Tablet) 2 tab PO DAILY PRN PRN Reason: Constipation Sodium Chloride (0.9 % Sodium Chloride Flush 3 Ml Syringe) 3 ml IVFLUSH QSHIFT [facility] Last Admin: 02/12/22 09:27 Dose: 3 ml Documented By: IBAN Thiamine HCl (Thiamine Hcl 100 Mg Tablet) 100 mg PO DAILY [facility] Last Admin: 02/12/22 09:37 Dose: 100 mg Documented By: IBAN Trazodone HCl (Trazodone Hcl 50 Mg Tablet) 50 mg PO BEDTIME [facility] Last Admin: 02/11/22 21:24 Dose: 50 mg Documented By: ANASTASIA Labs CBC & Chem 7: 02/09/22 05:21 02/09/22 05:21 Labs: Laboratory Results - last 24 hr 02/11/22 02/11/22 02/11/22 11:30 15:42 19:54 POC Glucose 84 134 H 123 H 02/12/22 02/12/22 02/12/22 07:34 07:59 08:44 POC Glucose 46 L* 51 L* 70 Assessment and Plan (1) Candidiasis: Status: Acute Plan 67yo F with 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 give NDD 1 solids, thin liquids still with throat pain, will add nystatin swish and swallow Possible oral HSV acyclovir 5 mg/kg q8h per ID total 10 days, started 02/06/22 Chronic pain secondary to malignancy continue IV, fent patch and oral medications Malignancy-associated DVT continue apixaban lower dose 5 mg bid due to very low body weight [facility] GI consulted, likely rectal bleeding from hemorrhoids vs colon involvement with metastatic dz, continue AC for now and monitor Hb Anemia of chronic disease. Stable transfused 2u pRBCs 02/05 with appropriate increase in H+H Hypoglycemia related to poor PO intake continue to monitor IV fluids Hypovolemic hyponatremia mild follow BMP adult FTT/Severe protein-calorie malnutrition Ensure 1 can tid IV fluids Metastatic ovarian CA not on treatment. per discussion with pt, , and daughter Jaquelin via phone, goals of care are palliation of symptoms at this point; however, she is not interested in hospice care. continue fentanyl patch with oxycodone prn breakthrough pain VTE ppx on apixaban Attending Dr. Fortino Hoang anticipate home when improved continued hospitalization for IV pain medication, IV antivirals and new malignancy related DVT Quality Stroke Does the patient have a stroke diagnosis?: No VTE Prior VTE?: No VTE Risk Level:: Medical - moderate - high VTE Device Contraindication: Treatment Not Indicated VTE Drug Contraindication: N/A - Med Ordered
[2022-02-12] MEDS: Fluconazole in NaCl,Iso-Osm 100 MG in Container,Empty 0 ML 50 MG IV (10:54)
[2022-02-12 11:26] LABS: Glucose, Whole Blood 68 mg/dL (60-115)
[2022-02-12 12:00] VITALS: BP 94/47; PULSE 92; RESP 18; TEMP 37.2; O2SAT 94
[2022-02-12] MEDS: Nystatin Oral Susp 500,000 UNIT/5 ML ORAL.SUSP 200000 UNIT BUCCAL ×3 (14:11→20:50)
[2022-02-12 15:52] VITALS: BP 90/44; PULSE 83; RESP 14; TEMP 37; O2SAT 96
[2022-02-12 16:04] LABS: Glucose, Whole Blood 120 mg/dL (60-115)
[2022-02-12] MEDS: HYDROmorphone HCl 0.5 MG/0.5 ML SYRINGE 0.25 MG IVPUSH (17:52)
[2022-02-12 19:53] VITALS: BP 92/58; PULSE 84; RESP 18; TEMP 36.9; O2SAT 96
[2022-02-12 20:35] LABS: Glucose, Whole Blood 86 mg/dL (60-115)
[2022-02-12] MEDS: traZODone HCL 50 MG TABLET PO (20:49)
[2022-02-12] MEDS: oxyCODONE HCl Immed Release 5 MG TABLET PO (21:01)
[2022-02-13] VITALS (7 sets, daily range): BP systolic 93–110; BP diastolic 46–52; PULSE 82–99; RESP 16–18; TEMP 36–37.4; O2SAT 93–98
[2022-02-13] MEDS: Mag&Al/Sim/Diphenhyd/Lidocaine 10 ML ORAL.SUSP PO ×4 (00:08→20:55)
[2022-02-13] MEDS: Dextrose 10 % 1,000 ML 75 ML IVCONT ×2 (03:20→11:09)
[2022-02-13 07:41] LABS: Glucose, Whole Blood 96 mg/dL (60-115)
[2022-02-13 09:27] LABS: Anion Gap 11 (12-20); Blood Urea Nitrogen 9 mg/dL (9-16); Carbon Dioxide 24 mmol/L (22-29); Chloride 96 mmol/L (96-108); Creatinine Clr Calc Pharmacy 61.4; Estimated Glomerular Filt Rate > 60; Glucose Random 94 mg/dL (60-115); Potassium 4.8 mmol/L (3.3-5.1); Sodium 126 mmol/L (135-145)
--- NOTE | 2022-02-13 09:47 | P.PNIM_ITS ---
Subjective Subjective Date of Service: 02/13/22 Review of Systems Follow up FTT Mouth pain improving slightly Still with chronic abd and pelvic pain from CA Physical Exam Vital Signs: Vital Signs: Last Vital Signs Temp 97.5 F 02/13/22 07:35 Pulse 86 02/13/22 07:35 Resp 17 02/13/22 07:35 BP 100/52 L 02/13/22 07:35 Pulse Ox 95 02/13/22 07:35 O2 Del Method 02/13/22 07:35 O2 Flow Rate 2 02/13/22 04:00 BMI result Body Mass Index 19.5 Appearing in no acute distress, thin and frail lung sounds are clear to auscultation heart regular rate rhythm, clear S1, S2 positive bowel sounds, abdomen is soft, diffuse tenderness neuro patient is alert x3, no focal deficits Objective Data Active Medications Apixaban (Apixaban 5 Mg Tablet) 10 mg PO BID [facility] Stop: 02/14/22 09:01 Last Admin: 02/12/22 20:49 Dose: 10 mg Documented By: IBAN Dextrose (Dextrose 50 % 25 Gm/50 Ml Syringe) 25 gm IVPUSH Q15M PRN; Protocol PRN Reason: per Hypoglycemia Standing Ord. Last Admin: 02/09/22 20:39 Dose: 25 gm Documented By: DAVIDRINCampbell Fentanyl (Fentanyl 25 Mcg Patch.Td72) 25 mcg TRANSDERMA Q3D [facility] Last Admin: 02/11/22 09:26 Dose: 25 mcg Documented By: BENTON Fluticasone Propionate (Fluticasone Propionate Nasal 16 Gm [place]) 1 spray NOSTRIL-B DAILY [facility] Last Admin: 02/12/22 09:37 Dose: 1 spray Documented By: IABN Glucose (Glucose Gel 15 Gm Gel..Gram.) 15 gm PO Q15M PRN; Protocol PRN Reason: per Hypoglycemia Standing Ord. Hydromorphone HCl (Hydromorphone Hcl 0.5 Mg/0.5 Ml Syringe) 0.25 mg IVPUSH Q4H PRN; Protocol PRN Reason: Breakthrough Pain Last Admin: 02/12/22 17:52 Dose: 0.25 mg Documented By: IBAN Fluconazole 100 mg/ IV (Miscellaneous Supplies) 50 mls @ 50 mls/hr IV Q24H [facility] Last Infusion: 02/12/22 11:55 Dose: 0 mls/hr Documented By: IBAN Acyclovir Sodium 235 mg/ (Sodium Chloride) 104.7 mls @ 104.7 mls/hr IV Q8H [facility] Last Infusion: 02/13/22 01:07 Dose: 0 mls/hr Documented By: RAMANDEEP Dextrose (D10) 1,000 mls @ 75 mls/hr IVCONT .[id number] [facility] Last Admin: 02/13/22 03:20 Dose: 75 mls/hr Documented By: RAMANDEEP Lidocaine/Diphenhydr/Alum/Mg/Simeth (Mag&Al/Sim/Diphenhyd/Lidocaine 10 Ml O ral.Susp) 10 ml PO Q4H [facility]; Protocol Last Admin: 02/13/22 05:54 Dose: Not Given Documented By: RAMANDEEP Non-Admin Reason: Patient Refused Melatonin (Melatonin 3 Mg Tablet) 6 mg PO BEDTIME PRN PRN Reason: Insomnia Last Admin: 02/11/22 21:28 Dose: 6 mg Documented By: ANASTASIA Multivitamins/Vitamin C (Multivitamin Tablet) 1 tab PO DAILY [facility] Last Admin: 02/12/22 09:37 Dose: 1 tab Documented By: IBAN Nystatin (Nystatin Oral Susp 500,000 Unit/5 Ml Oral.Susp) 200,000 unit BUCCAL QID [facility]; Protocol Last Admin: 02/12/22 20:50 Dose: 200,000 unit Documented By: IBAN Ondansetron HCl (Ondansetron Hcl 4 Mg/2 Ml Vial) 4 mg IVPUSH Q4H PRN PRN Reason: nausea;vomting Oxybutynin Chloride (Oxybutynin Chloride Er 5 Mg Tab.Er.24) 10 mg PO DAILY [facility] Last Admin: 02/12/22 09:36 Dose: 10 mg Documented By: IBAN Oxycodone HCl (Oxycodone Hcl Immed Release 5 Mg Tablet) 5 mg PO Q4H PRN PRN Reason: Pain, Mild (Pain Scale 1-3) Last Admin: 02/12/22 21:01 Dose: 5 mg Documented By: IBAN Senna/Docusate Sodium (Sennosides/Docusate Sodium Tablet) 2 tab PO DAILY PRN PRN Reason: Constipation Sodium Chloride (0.9 % Sodium Chloride Flush 3 Ml Syringe) 3 ml IVFLUSH QSHIFT [facility] Last Admin: 02/13/22 00:05 Dose: Not Given Documented By: RAMANDEEP Non-Admin Reason: IV Running Thiamine HCl (Thiamine Hcl 100 Mg Tablet) 100 mg PO DAILY [facility] Last Admin: 02/12/22 09:37 Dose: 100 mg Documented By: IBAN Trazodone HCl (Trazodone Hcl 50 Mg Tablet) 50 mg PO BEDTIME [facility] Last Admin: 02/12/22 20:49 Dose: 50 mg Documented By: IBAN Labs CBC & Chem 7: 02/09/22 05:21 02/13/22 09:07 Labs: Laboratory Results - last 24 hr 02/12/22 02/12/22 02/12/22 11:16 15:55 19:55 Anion Gap Estim Creat Clear Calc Estimated GFR POC Glucose 68 120 H 86 Random Glucose Calcium 02/13/22 02/13/22 07:37 09:07 Anion Gap 11 L Estim Creat Clear Calc 61.4 Estimated GFR > 60 POC Glucose 96 Random Glucose 94 Calcium 7.0 L Assessment and Plan (1) Candidiasis: Status: Acute Plan 67yo F with 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 Stable transfused 2u pRBCs 02/05 with appropriate increase in H+H Hypoglycemia related to poor PO intake continue to monitor IV fluids Hypovolemic hyponatremia mild follow BMP Metastatic ovarian CA not on treatment. per discussion with pt, , and daughter Jaquelin via phone, goals of care are palliation of symptoms at this point; however, she is not interested in hospice care. continue fentanyl patch with oxycodone prn breakthrough pain VTE ppx on apixaban Attending Dr. Fortino Hoang anticipate home when improved continued hospitalization for IV pain medication, IV antivirals and new malignancy related DVT. started on IV PPN and IV PPI Quality Stroke Does the patient have a stroke diagnosis?: No VTE Prior VTE?: No VTE Risk Level:: Medical - moderate - high VTE Device Contraindication: Treatment Not Indicated VTE Drug Contraindication: N/A - Med Ordered
--- NOTE | 2022-02-13 10:11 | MHC.CLN ---
F/U PER DISCUSSION WITH PROVIDER, RECOMMEND START PPN FOR NUTRITION SUPPORT. PATIENT WITH POOR INTAKE AND SEVERE MALNUTRITION. RECOMMEND D10AA4.25 AT 30ML/HR TO PROVIDE 367KCALS, 31G PROTEIN. REPLETE LYTES NEEDED. DISCUSSED WITH PHARMACY. MONITOR MG, PHOS , AND K+ FOR RE-FEEDING. RECOMMEND 30 ML PER HOUR FOR DAY 1 (02/13/22) AND DAY 2 (02/14/22) DUE TO RISK OF RE-FEEDING. RD TO REASSESS WITH TEAM ON 02/15.
[2022-02-13] MEDS: Pantoprazole Sodium 40 MG/10 ML VIAL IVPUSH ×2 (10:55→17:44)
[2022-02-13] MEDS: Apixaban 5 MG TABLET 10 MG PO ×2 (10:55→20:51)
[2022-02-13] MEDS: Multivitamin TABLET 1 TAB PO (10:55)
[2022-02-13] MEDS: 0.9 % Sodium Chloride Flush 3 ML SYRINGE IVFLUSH ×2 (10:55→17:44)
[2022-02-13] MEDS: oxyCODONE HCl Immed Release 5 MG TABLET PO ×3 (10:56→22:09)
[2022-02-13] MEDS: Thiamine HCL 100 MG TABLET PO (10:56)
[2022-02-13] MEDS: Fluticasone Propionate Nasal 16 GM SPRAY 1 SPRAY NOSTRIL-B (10:57)
[2022-02-13] MEDS: Nystatin Oral Susp 500,000 UNIT/5 ML ORAL.SUSP 200000 UNIT BUCCAL ×3 (10:58→20:50)
[2022-02-13 10:59] LABS: Albumin Level 1.5 g/dL (3.5-5.0); Magnesium 1.8 mg/dL (1.6-2.6); Phosphorus 3.7 mg/dL (2.7-4.5); Triglycerides 64 mg/dL
[2022-02-13 11:18] LABS: Glucose, Whole Blood 84 mg/dL (60-115)
--- NOTE | 2022-02-13 11:53 | MHC.SLORD ---
Speech Language Pathology Order Status: KNITTING SUPERVISOR attempted to see patient to re-evaluate swallow for potential upgrade. Patient sleeping, awoke w/ KNITTING SUPERVISOR arrival. Patient refused PO trials, stating she wanted to eat later. Patient currently on PUREED (NDD1) diet d/t oral pain with THIN liquids. KNITTING SUPERVISOR will continue to follow.
--- NOTE | 2022-02-13 15:43 | MHC.CM.PN ---
PATIENT STILL WITH ACUTE PAIN NEEDS PPN TO START CASE MANAGEMENT FOLLOWING
[2022-02-13 16:18] LABS: Glucose, Whole Blood 114 mg/dL (60-115)
[2022-02-13 20:37] LABS: Glucose, Whole Blood 72 mg/dL (60-115)
[2022-02-13] MEDS: traZODone HCL 50 MG TABLET PO (20:51)
[2022-02-14 02:38] LABS: Glucose, Whole Blood 74 mg/dL (60-115)
[2022-02-14 03:56] VITALS: BP 104/52; PULSE 90; RESP 17; TEMP 36.2; O2SAT 96
[2022-02-14] MEDS: Mag&Al/Sim/Diphenhyd/Lidocaine 10 ML ORAL.SUSP PO ×5 (05:51→21:14)
[2022-02-14] MEDS: Pantoprazole Sodium 40 MG/10 ML VIAL IVPUSH ×2 (05:51→17:17)
[2022-02-14 06:03] LABS: Anion Gap 9 (12-20); Blood Urea Nitrogen 8 mg/dL (9-16); Carbon Dioxide 27 mmol/L (22-29); Chloride 99 mmol/L (96-108); Creatinine Clr Calc Pharmacy 63.2; Estimated Glomerular Filt Rate > 60; Glucose Random 80 mg/dL (60-115); Magnesium 1.7 mg/dL (1.6-2.6); Potassium 4.3 mmol/L (3.3-5.1); Sodium 131 mmol/L (135-145)
[2022-02-14 07:29] VITALS: BP 82/42; PULSE 93; RESP 17; TEMP 36.6; O2SAT 97
[2022-02-14 07:45] LABS: Glucose, Whole Blood 69 mg/dL (60-115)
--- NOTE | 2022-02-14 08:43 | P.PNIM_ITS ---
Subjective Subjective Date of Service: 02/14/22 Review of Systems Follow up FTT Mouth pain improving slightly Still with chronic abd and pelvic pain from CA Physical Exam Vital Signs: Vital Signs: Last Vital Signs Temp 97.9 F 02/14/22 07:29 Pulse 93 02/14/22 07:29 Resp 17 02/14/22 07:29 BP 82/42 L 02/14/22 07:29 Pulse Ox 97 02/14/22 07:29 O2 Del Method 02/14/22 07:29 O2 Flow Rate 2 02/13/22 04:00 BMI result Body Mass Index 19.5 weak and frail appearing lung sounds are clear to auscultation heart regular rate rhythm, clear S1, S2 positive bowel sounds, abdomen is soft, nontender neuro patient is alert x3, no focal deficits Objective Data Active Medications Apixaban (Apixaban 5 Mg Tablet) 10 mg PO BID [facility] Stop: 02/14/22 09:01 Last Admin: 02/13/22 20:51 Dose: 10 mg Documented By: LAMIN Dextrose (Dextrose 50 % 25 Gm/50 Ml Syringe) 25 gm IVPUSH Q15M PRN; Protocol PRN Reason: per Hypoglycemia Standing Ord. Last Admin: 02/09/22 20:39 Dose: 25 gm Documented By: DAVIDRINCampbell Fentanyl (Fentanyl 25 Mcg Patch.Td72) 25 mcg TRANSDERMA Q3D [facility] Last Admin: 02/11/22 09:26 Dose: 25 mcg Documented By: BENTON Fluticasone Propionate (Fluticasone Propionate Nasal 16 Gm [place]) 1 spray NOSTRIL-B DAILY [facility] Last Admin: 02/13/22 10:57 Dose: 1 spray Documented By: MONA Glucose (Glucose Gel 15 Gm Gel..Gram.) 15 gm PO Q15M PRN; Protocol PRN Reason: per Hypoglycemia Standing Ord. Acyclovir Sodium 235 mg/ (Sodium Chloride) 104.7 mls @ 104.7 mls/hr IV Q8H [facility] Last Infusion: 02/14/22 03:20 Dose: 0 mls/hr Documented By: LAMIN Trace Metals 2.7 ml/ Amino (Acids/Electrolytes/Dextrose) 720 mls @ 30 mls/hr IV DAILY@1800 [facility] Stop: 02/14/22 17:59 Last Admin: 02/13/22 19:12 Dose: 30 mls/hr Documented By: MONA Lidocaine/Diphenhydr/Alum/Mg/Simeth (Mag&Al/Sim/Diphenhyd/Lidocaine 10 Ml Oral.Susp) 10 ml PO Q4H [facility]; Protocol Last Admin: 02/14/22 05:51 Dose: 10 ml Documented By: LAMIN Melatonin (Melatonin 3 Mg Tablet) 6 mg PO BEDTIME PRN PRN Reason: Insomnia Last Admin: 02/11/22 21:28 Dose: 6 mg Documented By: ANASTASIA Multivitamins/Vitamin C (Multivitamin Tablet) 1 tab PO DAILY [facility] Last Admin: 02/13/22 10:55 Dose: 1 tab Documented By: MNOA Nystatin (Nystatin Oral Susp 500,000 Unit/5 Ml Oral.Susp) 200,000 unit BUCCAL QID [facility]; Protocol Last Admin: 02/13/22 20:50 Dose: 200,000 unit Documented By: LAMIN Ondansetron HCl (Ondansetron Hcl 4 Mg/2 Ml Vial) 4 mg IVPUSH Q4H PRN PRN Reason: nausea;vomting Oxybutynin Chloride (Oxybutynin Chloride Er 5 Mg Tab.Er.24) 10 mg PO DAILY [facility] Last Admin: 02/13/22 10:57 Dose: 10 mg Documented By: MONA Oxycodone HCl (Oxycodone Hcl Immed Release 5 Mg Tablet) 5 mg PO Q4H PRN PRN Reason: Pain, Mild (Pain Scale 1-3) Last Admin: 02/13/22 22:09 Dose: 5 mg Documented By: LAMIN Pantoprazole Sodium (Pantoprazole Sodium 40 Mg/10 Ml Vial) 40 mg IVPUSH BID@0630,1630 [facility] Last Admin: 02/14/22 05:51 Dose: 40 mg Documented By: LAMIN Senna/Docusate Sodium (Sennosides/Docusate Sodium Tablet) 2 tab PO DAILY PRN PRN Reason: Constipation Sodium Chloride (0.9 % Sodium Chloride Flush 3 Ml Syringe) 3 ml IVFLUSH QSHIFT [facility] Last Admin: 02/13/22 23:22 Dose: Not Given Documented By: LAMIN Non-Admin Reason: IV Running Thiamine HCl (Thiamine Hcl 100 Mg Tablet) 100 mg PO DAILY [facility] Last Admin: 02/13/22 10:56 Dose: 100 mg Documented By: MONA Trazodone HCl (Trazodone Hcl 50 Mg Tablet) 50 mg PO BEDTIME [facility] Last Admin: 02/13/22 20:51 Dose: 50 mg Documented By: LAMIN Labs CBC & Chem 7: 02/09/22 05:21 02/14/22 05:23 Labs: Laboratory Results - last 24 hr 02/13/22 02/13/22 02/13/22 09:07 11:14 15:42 Anion Gap 11 L Estim Creat Clear Calc 61.4 Estimated GFR > 60 POC Glucose 84 114 Random Glucose 94 Calcium 7.0 L Phosphorus 3.7 Magnesium 1.8 Albumin 1.5 L D Triglycerides 64 02/13/22 02/14/22 02/14/22 19:42 02:33 05:23 Anion Gap 9 L Estim Creat Clear Calc 63.2 Estimated GFR > 60 POC Glucose 72 74 Random Glucose 80 Calcium 7.0 L Phosphorus Magnesium 1.7 Albumin Triglycerides 02/14/22 07:30 Anion Gap Estim Creat Clear Calc Estimated GFR POC Glucose 69 Random Glucose Calcium Phosphorus Magnesium Albumin Triglycerides Assessment and Plan (1) Candidiasis: Status: Acute Plan 67yo F with 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 Improving Likely from poor PO intake starting PPN will adjust Candidiasis, oral and suspected esophageal fluconazole completed 10 days MANAGER WORK consulted re dysphagia. 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 Stable transfused 2u pRBCs 02/05 with appropriate increase in H+H Hypoglycemia related to poor PO intake continue to monitor IV fluids Hypovolemic hyponatremia mild follow BMP Metastatic ovarian CA not on treatment. per discussion with pt, , and daughter Jaquelin via phone, goals of care are palliation of symptoms at this point; however, she is not interested in hospice care. continue fentanyl patch with oxycodone prn breakthrough pain Protein calorie malnutrition BMI 19.6 Started on PPN encouraged oral intake VTE ppx on apixaban Attending Dr. Fortino Hoang anticipate home when improved continued hospitalization for IV pain medication, IV antivirals and new malignancy related DVT. started on IV PPN and IV PPI Quality Stroke Does the patient have a stroke diagnosis?: No VTE Prior VTE?: No VTE Risk Level:: Medical - moderate - high VTE Device Contraindication: Treatment Not Indicated VTE Drug Contraindication: N/A - Med Ordered
[2022-02-14] MEDS: Nystatin Oral Susp 500,000 UNIT/5 ML ORAL.SUSP 200000 UNIT BUCCAL ×3 (09:32→17:17)
[2022-02-14] MEDS: Apixaban 5 MG TABLET 10 MG PO (09:33)
[2022-02-14] MEDS: Thiamine HCL 100 MG TABLET PO (09:33)
[2022-02-14] MEDS: Multivitamin TABLET 1 TAB PO (09:33)
[2022-02-14] MEDS: fentaNYL 25 MCG PATCH.TD72 TRANSDERMA (09:38)
--- NOTE | 2022-02-14 10:11 | MHC.SL.SWA ---
Speech Pathologist Impression: Oropharyngeal dysphagia Risk of Aspiration Due to: Poor PO Intake Dysphasia Diet Status: Upgrade Liquid Consistency and Strategies for Safe Swallow: Liquid Intake Recommendation: Thin Liquid Intake Strategies: Small Sips Solid Food Consistency: Dietary Recommendations: Chopped/Advanced (NDD3) Additional Modifications to Solid Foods: Recommend UPGRADE to CHOPPED/ADVANCED (NDD3) solids w/ sauces/gravies and maintain THIN liquids, pills CRUSHED in PUREE. Continue total supervision and aspiration precautions. Diet order updated by MACHINE SETTER SUPERVISOR. Sent [place] Message to , RN, RD w/ recommendations. MACHINE SETTER SUPERVISOR will continue to follow to monitor tolerance and assess for potential upgrade. Due to extensive report of oral pain by patient, she may be reluctant to take food/liquid orally at this time, and only take small amounts at any presentation of a meal. Pt will need supervision during meals to assure that she is able to tolerate eating due to currently level of reported oral pain. Would recommend providing smaller, more frequent meals to encourage PO intake. Oral Medication Intake: Crushed with Puree Please contact the pharmacy regarding appropriate crushable or liquid drug formulations that are available whenever modified delivery is recommended. Compensatory Strategies and Precautions to be Taken for Safe Swallow: Sitting Upright (90 deg) Small Bites and Sips Alternate Liquids/Solids Rate of Ingestion Change Supervision While Eating and Drinking for Safe Swallow: Total Supervision (1:1) Foods to Avoid: Difficulty to chew solids. Swallowing Recommended Treatments: Compens. Strategy Educat. Recommendation for Speech: Inpatient Speech Therapy 1 f/u Building Construction Foreman Clinican/Clinical Fellow: No Supervisory Statement: I have reviewed and agree with the student/clinical fellow's documentation: N/A Speech Language Pathologist: Yoly Figueroa M.A., [facility]-MACHINE SETTER SUPERVISOR
--- NOTE | 2022-02-14 10:26 | MHC.CLN ---
F/U PO INTAKE 25% AVG SUGAR MILL WORKER RECOMMENDING UPGRADE TO CHOPPED DIET PT C/O MOUTH PAIN CAUSING POOR PO PT RECEIVED D10AA4.25 AT 30ML/HR REVIEWED LABS-NO S/S RE-FEEDING AT THIS TIME RECOMMEND INCREASING D10AA4.25 TO 45ML/HR TO PROVIDE 551KCALS, 46G PROTEIN. REPLETE LYTES NEEDED. DISCUSSED WITH PHARMACY. CONTINUE TO MONITOR MG, PHOS , AND K+ FOR RE-FEEDING.
[2022-02-14] MEDS: oxyCODONE HCl Immed Release 5 MG TABLET PO ×2 (10:48→15:19)
[2022-02-14 11:18] VITALS: BP 81/41; PULSE 100; RESP 17; TEMP 36; O2SAT 94
[2022-02-14 11:42] LABS: Glucose, Whole Blood 91 mg/dL (60-115)
[2022-02-14 12:42] LABS: Phosphorus 3.8 mg/dL (2.7-4.5)
--- NOTE | 2022-02-14 14:38 | MHC.CM.PN ---
PPN STARTED 02/13/22 CASE MANAGEMENT FOLLOWING FOR PATIENT'S RETURN HOME
[2022-02-14 15:36] VITALS: BP 99/55; PULSE 81; RESP 18; TEMP 36.8; O2SAT 98
[2022-02-14 16:17] LABS: Glucose, Whole Blood 80 mg/dL (60-115)
[2022-02-14 19:09] VITALS: BP 101/53; PULSE 83; RESP 18; TEMP 36.6; O2SAT 96
[2022-02-14 20:13] LABS: Glucose, Whole Blood 76 mg/dL (60-115)
[2022-02-14] MEDS: traZODone HCL 50 MG TABLET PO (21:15)
[2022-02-15] VITALS: BP 98/47; PULSE 84; RESP 18; TEMP 36.6; O2SAT 97
[2022-02-15] MEDS: oxyCODONE HCl Immed Release 5 MG TABLET PO ×3 (01:36→14:20)
[2022-02-15] MEDS: Mag&Al/Sim/Diphenhyd/Lidocaine 10 ML ORAL.SUSP PO (01:37)
[2022-02-15 04:00] VITALS: BP 100/49; PULSE 98; RESP 18; TEMP 36.2; O2SAT 95
[2022-02-15] MEDS: Pantoprazole Sodium 40 MG/10 ML VIAL IVPUSH (05:42)
[2022-02-15 06:21] LABS: Anion Gap 11 (12-20); Blood Urea Nitrogen 10 mg/dL (9-16); Calcium 7.1 mg/dL (8.4-10.2); Carbon Dioxide 23 mmol/L (22-29); Chloride 100 mmol/L (96-108); Estimated Glomerular Filt Rate > 60; Glucose Random 96 mg/dL (60-115); Magnesium 1.9 mg/dL (1.6-2.6); Potassium 4.6 mmol/L (3.3-5.1); Sodium 129 mmol/L (135-145)
[2022-02-15 07:37] VITALS: BP 107/52; PULSE 98; RESP 17; TEMP 37.1; O2SAT 96
[2022-02-15] MEDS: Multivitamin TABLET 1 TAB PO (07:44)
[2022-02-15] MEDS: Thiamine HCL 100 MG TABLET PO (07:44)
[2022-02-15 07:45] LABS: Glucose, Whole Blood 99 mg/dL (60-115)
--- NOTE | 2022-02-15 09:41 | MHC.CLN ---
F/U AVERAGE PO INTAKE 25%. DIET=NDD3 WITH ENSURE TID (1050 KCALS, 60 G PROTEIN). PPN RUNNING D10AA4.25 AT 45ML/HR TO PROVIDE 551KCALS, 46G PROTEIN. REPLETE LYTES NEEDED. REVIEWED LABS. NO INDICATION OF RE-FEEDING AT THIS TIME. DISCUSSED WITH PHARMACY. RD RECOMMENDS CONTINUE RATE OF 45 ML PER HOUR WITH NO LIPIDS. CONTINUE TO MONITOR MG, PHOS , AND K+ FOR RE-FEEDING.
--- NOTE | 2022-02-15 09:48 | P.PNIM_ITS ---
Subjective Subjective Date of Service: 02/24/22 Interval History: Mouth pain slightly improved Hypoglycemia improved Chronic abd/pelvic pain from CA Had a little bright red blood mixed with stool yesterday US positive for RLE DVT; started apixaban Review of Systems Follow up FTT Mouth pain improving slightly Still with chronic abd and pelvic pain from CA Physical Exam Vital Signs: Vital Signs: Last Vital Signs Temp 98.8 F 02/15/22 07:37 Pulse 98 02/15/22 07:37 Resp 17 02/15/22 07:37 BP 107/52 L 02/15/22 07:37 Pulse Ox 96 02/15/22 07:37 O2 Del Method 02/15/22 07:37 O2 Flow Rate 2 02/15/22 07:37 BMI result Body Mass Index 19.5 Objective Data Active Medications Dextrose (Dextrose 50 % 25 Gm/50 Ml Syringe) 25 gm IVPUSH Q15M PRN; Protocol PRN Reason: per Hypoglycemia Standing Ord. Last Admin: 02/09/22 20:39 Dose: 25 gm Documented By: FAWN Fentanyl (Fentanyl 25 Mcg Patch.Td72) 25 mcg TRANSDERMA Q3D [facility] Last Admin: 02/14/22 09:38 Dose: 25 mcg Documented By: IBAN Fluticasone Propionate (Fluticasone Propionate Nasal 16 Gm [place]) 1 spray NOSTRIL-B DAILY [facility] Last Admin: 02/14/22 10:02 Dose: Not Given Documented By: IBAN Non-Admin Reason: Med Not Available Glucose (Glucose Gel 15 Gm Gel..Gram.) 15 gm PO Q15M PRN; Protocol PRN Reason: per Hypoglycemia Standing Ord. Acyclovir Sodium 235 mg/ (Sodium Chloride) 104.7 mls @ 104.7 mls/hr IV Q8H [facility] Last Infusion: 02/15/22 02:07 Dose: 0 mls/hr Documented By: LAMIN Amino Acids/Electrolytes/Dextrose (Clinimix E 4.25%-10%) 1,080 mls @ 45 mls/hr IV DAILY@1800 [facility] Stop: 02/15/22 17:59 Last Admin: 02/14/22 18:29 Dose: 45 mls/hr Documented By: IBAN Lidocaine/Diphenhydr/Alum/Mg/Simeth (Mag&Al/Sim/Diphenhyd/Lidocaine 10 Ml Oral.Susp) 10 ml PO Q4H [facility]; Protocol Last Admin: 02/15/22 05:47 Dose: Not Given Documented By: LAMIN Non-Admin Reason: Patient Refused Melatonin (Melatonin 3 Mg Tablet) 6 mg PO BEDTIME PRN PRN Reason: Insomnia Last Admin: 02/11/22 21:28 Dose: 6 mg Documented By: ANASTASIA Multivitamins/Vitamin C (Multivitamin Tablet) 1 tab PO DAILY [facility] Last Admin: 02/15/22 07:44 Dose: 1 tab Documented By: IBAN Nystatin (Nystatin Oral Susp 500,000 Unit/5 Ml Oral.Susp) 200,000 unit BUCCAL Q ID [facility]; Protocol Last Admin: 02/14/22 22:35 Dose: Not Given Documented By: LAMIN Non-Admin Reason: Patient Refused Ondansetron HCl (Ondansetron Hcl 4 Mg/2 Ml Vial) 4 mg IVPUSH Q4H PRN PRN Reason: nausea;vomting Oxybutynin Chloride (Oxybutynin Chloride Er 5 Mg Tab.Er.24) 10 mg PO DAILY [facility] Last Admin: 02/15/22 07:43 Dose: 10 mg Documented By: IBAN Oxycodone HCl (Oxycodone Hcl Immed Release 5 Mg Tablet) 5 mg PO Q4H PRN PRN Reason: Pain, Mild (Pain Scale 1-3) Last Admin: 02/15/22 07:43 Dose: 5 mg Documented By: IBAN Pantoprazole Sodium (Pantoprazole Sodium 40 Mg/10 Ml Vial) 40 mg IVPUSH BID@0630,1630 [facility] Last Admin: 02/15/22 05:42 Dose: 40 mg Documented By: LAMIN Senna/Docusate Sodium (Sennosides/Docusate Sodium Tablet) 2 tab PO DAILY PRN PRN Reason: Constipation Sodium Chloride (0.9 % Sodium Chloride Flush 3 Ml Syringe) 3 ml IVFLUSH QSHIFT [facility] Last Admin: 02/15/22 07:46 Dose: Not Given Documented By: IBAN Non-Admin Reason: IV Running Thiamine HCl (Thiamine Hcl 100 Mg Tablet) 100 mg PO DAILY [facility] Last Admin: 02/15/22 07:44 Dose: 100 mg Documented By: IBAN Trazodone HCl (Trazodone Hcl 50 Mg Tablet) 50 mg PO BEDTIME [facility] Last Admin: 02/14/22 21:15 Dose: 50 mg Documented By: LAMIN Labs CBC & Chem 7: 02/09/22 05:21 02/15/22 05:36 Labs: Laboratory Results - last 24 hr 02/14/22 02/14/22 02/14/22 05:23 11:20 16:06 Anion Gap Estim Creat Clear Calc Estimated GFR POC Glucose 91 80 Random Glucose Calcium Phosphorus 3.8 Magnesium 02/14/22 02/15/22 02/15/22 20:04 05:36 07:39 Anion Gap 11 L Estim Creat Clear Calc 75.0 Estimated GFR > 60 POC Glucose 76 99 Random Glucose 96 Calcium 7.1 L Phosphorus Magnesium 1.9 Assessment and Plan (1) Cellulitis: Status: Acute Plan 67yo F with 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 Improving Likely from poor PO intake starting PPN will adjust Candidiasis, oral and suspected esophageal fluconazole completed 10 days LOCAL COORDINATOR consulted re dysphagia.? 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 Stable transfused 2u pRBCs 02/05 with appropriate increase in H+H Hypoglycemia related to poor PO intake continue to monitor IV fluids Hypovolemic hyponatremia mild follow BMP Metastatic ovarian CA not on treatment.? per discussion with pt, , and daughter Jaquelin via phone, goals of care are palliation of symptoms at this point; however, she is not interested in hospice care. continue fentanyl patch with oxycodone prn breakthrough pain Protein calorie malnutrition BMI 19.6 Started on PPN encouraged oral intake VTE ppx on apixaban Attending Dr. Freitas Dispo home in next couple of days ?continued hospitalization for IV pain medication, IV antivirals, . started on IV PPN and IV PPI Quality Stroke Does the patient have a stroke diagnosis?: No VTE Prior VTE?: No VTE Risk Level:: Medical - moderate - high VTE Device Contraindication: Treatment Not Indicated VTE Drug Contraindication: N/A - Med Ordered
[2022-02-15 10:29] LABS: Albumin Level 1.4 g/dL (3.5-5.0); Phosphorus 3.8 mg/dL (2.7-4.5)
[2022-02-15 11:43] VITALS: BP 100/51; PULSE 81; RESP 17; TEMP 36.6; O2SAT 96
[2022-02-15 11:54] LABS: Glucose, Whole Blood 107 mg/dL (60-115)
--- NOTE | 2022-02-15 12:03 | P.DS_ITS ---
DS: Providers Provider Date of Service: 02/15/22 Date of admission: 02/04/22 22:57 Primary care physician: Katalina Larson MD Consults: 02/04/22 22:57 Consult to Infectious Diseases Routine Consulting Provider: Luiza Pizarro Reason for consultation: Recurrent UTI, history of colovesical fistula, oral thrush 02/07/22 15:08 Consult to Gastroenterology Routine Consulting Provider: Ayana Pena Reason for consultation: BRBPR. ANemic, transfused DS: Diagnosis Discharge Diagnosis (1) Candidiasis: Status: Resolved DS: Summary Hospital Course Hospital Course: Date of Service: 02/04/22 Chief Complaint: Poor oral intake 67-year-old female with a past medical history of diabetes, ovarian cancer with metastasis, history of enterovesical fistula, recurrent UTIs, history of SBO, severe protein calorie malnutrition, recent admission to the hospital for adult failure to thrive/fall; presented to the hospital today with a chief complaint of generalized weakness/not feeling well.? Most of the history provided with the patient and patient's family at bedside.? Reportedly patient has been not doing well over the past 2 days.? Also mentioned patient has decreased oral intake and has not be eating well.? Mentions she has difficulty swallowing secondary to pain in the mouth. Patient also reports having abdominal discomfort, denies any nausea vomiting or diarrhea.? Reports subjective fevers.? Patient's daughter mentioned that patient was planned to be on chronic suppressive antibiotics but has not been started yet.? Review of all other systems is negative except mentioned above ER course: Per ER team patient on presentation noted to have low-grade temperature 9 informed right, mild abdominal tenderness; CT scan of the abdomen showed no acute change in her chronic intra-abdominal findings.? Urinalysis was pending.? Patient noted to have tachycardia and mild leukocytosis; patient was empirically given ceftriaxone.? Also noted to have albumin 1.5-> received IV albumin, severely elevated [id number] to be worsening cancer.? Admitted to the hospital for further management. Hospital course: adult failure to thrive with Severe protein-calorie malnutrition related to advance and wide spread metastatic ovarian cancer with enterovesicular fistula and treatable or operatable, she is frequently ill and frequently hospitalized and family at this juncture has not been ready for hospice, paliative or comfort care. 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 She has been treated with IV acyclovir for 10 days now, and oral Nystatin and at this point is no longer complaining of oral pain and tolerating some diet. She was given PPN in the hospical. I have discussed with loydather with case management that her overall condition is unlikely to change because of the underlying malignancu and her nutrition status unlikely to impve and therefore a joint terminal attack controller plan such as PEG should be considered but at this point they wish not to have any invasive procedure including PEG and will try to feed as much as possible. We discussed possible hospice,code status change to DNR.. Hyponatremia. 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 give NDD 1 solids, thin liquids still with throat pain, will add nystatin swish and swallow> somewhat improved Possible oral HSV acyclovir 5 mg/kg q8h per ID total 10 days, started 02/06/22, stop 02/15/22 Chronic pain secondary to malignancy fent patch and oral oxycodone--Family doens't want dilaudid Malignancy-associated DVT-- continue apixaban BRBPR GI consulted, likely rectal bleeding from hemorrhoids vs colon involvement with metastatic dz, continue AC for now and monitor for sings of bleeding Anemia of chronic disease. Stable transfused 2u pRBCs 02/05 with appropriate increase in H+H Hypoglycemia related to poor PO intake Metastatic ovarian CA not on treatment.? per discussion with pt, , and daughter Jaquelin via phone, goals of care are palliation of symptoms at this point; however, she is not interested in hospice care. continue fentanyl patch with oxycodone prn breakthrough pain Severe Protein calorie malnutrition---Encourage oral intake Time Spent with Patient Time attestation: Total time spent providing and/or coordinating discharge services: Discharge coordination time: Greater than 30 minutes Quality: Safe Use of Opioids Does Pt have an Active Cancer Diagnosis on the Problem List?: No Quality: Stroke Does the patient have a stroke diagnosis?: No Physical Exam Vital Signs: Vital Signs: Last Vital Signs Temp 97.8 F 02/15/22 11:43 Pulse 81 02/15/22 11:43 Resp 17 02/15/22 11:43 BP 100/51 L 02/15/22 11:43 Pulse Ox 96 02/15/22 11:43 O2 Del Method 02/15/22 11:43 O2 Flow Rate 2 02/15/22 07:37 BMI result Body Mass Index 19.5 DS: Data Data Completed and Pending Completed studies during hospitalization [Text1]: Procedures Insertion of Infusion Device into Superior Vena Cava, Percutaneous Approach (05/03/21) Transfusion of Nonautologous Red Blood Cells into Peripheral Vein, Percutaneous Approach (10/02/21) Labs on day of discharge: Laboratory Results - last 24 hr 02/14/22 02/14/22 02/14/22 05:23 16:06 20:04 Sodium Potassium Chloride Carbon Dioxide Anion Gap BUN Creatinine Estim Creat Clear Calc Estimated GFR POC Glucose 80 76 Random Glucose Calcium Phosphorus 3.8 Magnesium Albumin 02/15/22 02/15/22 02/15/22 05:36 07:39 11:44 Sodium 129 L Potassium 4.6 Chloride 100 Carbon Dioxide 23 Anion Gap 11 L BUN 10 Creatinine 0.54 Estim Creat Clear Calc 75.0 Estimated GFR > 60 POC Glucose 99 107 Random Glucose 96 Calcium 7.1 L Phosphorus 3.8 Magnesium 1.9 Albumin 1.4 L Discharge Plan Discharge Anticipated Discharge Date/Time: 02/15/22 11:57 Patient Disposition: Home Health Service Discharge Diagnosis: Oral HSV, Candidiasis Referrals: [facility] [Outside] - 1 Week Katalina Larson MD [Primary Care Provider] - 1 Week Discharge Medications: New nystatin 100,000 unit/mL Suspension 200,000 unit buccal QID Qty: 200 0RF Protocol: Apply to: Apply to: swish and swallow Prilosec 10 mg susp,delayed release for recon 20 mg PO DAILY 30 Days Qty: 30 0RF Eliquis 5 mg tablet 5 mg PO BID Qty: 60 0RF Continued melatonin 5 mg tablet 1 tab PO BEDTIME PRN (Reason: Insomnia) sennosides-docusate sodium [Senna Plus] 8.6-50 mg tablet 2 tab PO DAILY PRN (Reason: Constipation) Label Comments: PER PATIENT: DOES NOT TAKE REGULARLY fentanyl 25 mcg/hr patch 72 hour 1 patch topical Q3D trazodone 50 mg tablet 50 mg PO BEDTIME oxybutynin chloride 10 mg tablet extended release 24 hr 1 tab PO DAILY thiamine HCl (vitamin B1) 100 mg tablet 1 tab DAILY fluticasone propionate 50 mcg/actuation spray,suspension 1 spray intranasal DAILY oxycodone 5 mg tablet 5 mg PO DAILY PRN (Reason: Pain, Mild) multivitamin with folic acid [Daily-Beltran (with folic acid)] 400 mcg tablet 1 tab PO DAILY Pediatric Oint (cod liver oil) Ointment 1 ea TOPICAL TID Discontinued hydromorphone 2 mg tablet 2 mg PO Q6H PRN (Reason: severe pain (scale score 7-10)) Qty: 30 0RF Rx Instructions: Partial Fill upon patient request. Discharge Orders: Discharge Order (Routine); Ordered 02/15/22 Ordered By: Duarte Correa Diet: Advance to usual diet Activity on Discharge: As tolerated Stand Alone Forms: Patient Portal Discharge page Care Plan Goals: improved nutrition Health Concerns: metastatic cancer Plan of Treatment: Focus on nutrition and comfort May resume iv fluids at home as previous to hospitalization Assessment: as above Discharge Date/Time: 02/15/22 16:25
--- NOTE | 2022-02-15 13:49 | MHC.CM.PN ---
PATIENT IS RETURNING HOME FOR [facility]. DAUGHTER, JOSEFINA, SPOUSE, PATIENT, AND FRIEND (IN ROOM) AWARE OF PLAN. RN AWARE [facility] IS GOING TO RESUME CARE. FAMILY HAS DECIDED AGAINST CONTINUING PPN AND ASKS THAT LAST DOSE OF ABX NOT BE ADMINISTERED. FAMILY STILL INSISTS FULL CODE STATUS
[2022-02-15] MEDS: Apixaban 5 MG TABLET PO (14:18)
--- NOTE | 2022-02-15 16:41 | MHC.SL.SWA ---
Speech Pathologist Impression: Oropharyngeal dysphagia Risk of Aspiration Due to: Poor PO Intake Dysphasia Diet Status: Downgrade Liquid Consistency and Strategies for Safe Swallow: Liquid Intake Recommendation: Thin Liquid Intake Strategies: Small Sips Solid Food Consistency: Dietary Recommendations: Grnd/Mech Altered (NDD2) Additional Modifications to Solid Foods: Due to extensive report of oral pain by patient, she may be reluctant to take food/liquid orally at this time, and only take small amounts at any presentation of a meal. Pt will need supervision during meals to assure that she is able to tolerate eating due to currently level of reported oral pain. Would recommend providing smaller, more frequent meals to encourage PO intake. Oral Medication Intake: Crushed with Puree Please contact the pharmacy regarding appropriate crushable or liquid drug formulations that are available whenever modified delivery is recommended. Compensatory Strategies and Precautions to be Taken for Safe Swallow: Sitting Upright (90 deg) Small Bites and Sips Alternate Liquids/Solids Rate of Ingestion Change Supervision While Eating and Drinking for Safe Swallow: Total Supervision (1:1) Foods to Avoid: Difficulty to chew solids. Swallowing Recommended Treatments: Compens. Strategy Educat. Recommendation for Speech: Inpatient Speech Therapy Comment: Pt presents with extensive oral pain in jaw, lips, tongue and throat,reduced jaw opening, and pain with presence of food and liquid in mouth, pain on swallow. Would recommend referral to ENT or further assessment to determine source of oral pain. Service Dismantler Clinican/Clinical Fellow: No Supervisory Statement: I have reviewed and agree with the student/clinical fellow's documentation: N/A Speech Language Pathologist: Yoly Figueroa M.A., CCC-CADDIE SUPERVISOR
== END 2022-02-15 16:25 | disposition home health service (06) | DRG 157 ==
LOC: HO.ED 21:36 → HO.EDOVER 23:22 → HO.S3 23:33
PROVIDERS: Family Medicine; Hospitalist; Physician Assistant; Admitting Provider Hospitalist; Emergency Provider Emergency Medicine; PCP Pediatrics; Responsible Provider Nurse Practitioner Acute Care; Visit Provider Internal Medicine
DX: B00.2 Herpesviral gingivostomatitis and pharyngotonsillitis (principal); E43 Unspecified severe protein-calorie malnutrition; Z68.1 Body mass index [BMI] 19.9 or less, adult; B37.81 Candidal esophagitis; C56.9 Malignant neoplasm of unspecified ovary; N32.1 Vesicointestinal fistula; E87.2 Acidosis; I82.411 Acute embolism and thrombosis of right femoral vein; I82.811 Embolism and thrombosis of superficial veins of right lower extremity; E22.2 Syndrome of inappropriate secretion of antidiuretic hormone; C78.7 Secondary malignant neoplasm of liver and intrahepatic bile duct; C78.02 Secondary malignant neoplasm of left lung; C78.01 Secondary malignant neoplasm of right lung; C79.11 Secondary malignant neoplasm of bladder; K62.5 Hemorrhage of anus and rectum; E88.09 Other disorders of plasma-protein metabolism, not elsewhere classified; E11.649 Type 2 diabetes mellitus with hypoglycemia without coma; D63.0 Anemia in neoplastic disease; G89.3 Neoplasm related pain (acute) (chronic); E86.1 Hypovolemia; R62.7 Adult failure to thrive; Z20.822 Contact with and (suspected) exposure to COVID-19; Z87.440 Personal history of urinary (tract) infections; Z92.21 Personal history of antineoplastic chemotherapy; Z91.041 Radiographic dye allergy status; Z88.0 Allergy status to penicillin; Z79.01 Long term (current) use of anticoagulants; Z79.51 Long term (current) use of inhaled steroids; Z79.899 Other long term (current) drug therapy
CPT/HCPCS: 36415; 71250; 74176; 80048; 80053; 80076; 82040; 82272; 82607; 82728; 82746; 82947; 83605; 83615; 83735; 84100; 84478; 85014; 85018; 85025; 85027; 85045; 86850; 86900; 86901; 86923; 87040; 87635; 92526; 92610; 93005; 93970; 96361; 96365; 96366; 96367; 96375; 97161; 99285; J0133; J0696; J1170; J1450; J2270; P9016; P9047

== ENCOUNTER 2022-02-18 14:36 | Emergency (ER) | payer OTHER, SELFPAY ==
[2022-02-18 16:10] VITALS: BP 110/58; PULSE 127; RESP 16; TEMP 37; O2SAT 98; BMI 17.6
--- NOTE | 2022-02-18 17:02 | ED_ITS ---
HPI - General Adult General Chief complaint: General Medical Stated complaint: clogged iv port, swollen r arm and leg Time Seen by Provider: 02/18/22 14:45 Source: patient Mode of arrival: ambulatory Limitations: no limitations History of Present Illness HPI narrative: Patient with medical history of diabetes, terminal metastatic ovarian cancer on palliative care, history of enterovesical fistula, recurrent UTI, history of SBO and severe protein calorie malnutrition with PICC line right arm for IV hydration just discharged on 02/15 comes back as ACCOUNTS RECEIVABLE COORDINATOR could not flush and give fluids to the PICC line today Related Data Home Medications Medication Instructions Recorded Confirmed melatonin 5 mg tablet 1 tab PO BEDTIME PRN Insomnia 05/03/21 02/05/22 fentanyl 25 mcg/hr transdermal 1 patch topical Q3D 10/02/21 02/05/22 patch sennosides 8.6 mg-docusate sodium 2 tab PO DAILY PRN Constipation 10/02/21 02/05/22 50 mg tablet (Senna Plus) fluticasone propionate 50 1 spray intranasal DAILY 01/19/22 02/05/22 mcg/actuation nasal spray,suspension multivitamin with folic acid 400 1 tab PO DAILY 01/19/22 02/05/22 mcg tablet (Daily-Beltran (with folic acid)) oxybutynin chloride 10 mg 1 tab PO DAILY 01/19/22 02/05/22 tablet,extended release 24 hr oxycodone 5 mg tablet 5 mg PO DAILY PRN Pain, Mild 01/19/22 02/05/22 thiamine HCl (vitamin B1) 100 mg 1 tab DAILY 01/19/22 02/05/22 tablet trazodone 50 mg tablet 50 mg PO BEDTIME insomnia 01/19/22 02/05/22 zinc oxide-cod liver oil topical 1 ea topical TID 02/05/22 02/05/22 ointment (Pediatric Oint (cod liver oil)) Previous Rx's Medication Instructions Recorded apixaban 5 mg tablet (Eliquis) 5 mg PO BID #60 tabs 02/15/22 nystatin 100,000 unit/mL oral 200,000 unit buccal QID #200 mL 02/15/22 suspension omeprazole magnesium 10 mg oral 20 mg PO DAILY 30 days #30 ea 02/15/22 suspension,delayed release (Prilosec) Allergies Allergy/AdvReac Type Severity Reaction Status Date / Time Iodinated Contrast Media Allergy Severe DIFF.BREATH Verified 02/18/22 16:10 [IV Dye, Iodine Containing] ING Penicillins AdvReac Mild PASSED OUT Verified 02/18/22 16:10 Environmental Allergy Mild ITCHY Uncoded 05/04/20 16:02 EYES/RUNNY NOSE DYE Allergy Unknown Unknown Uncoded 05/03/21 16:31 PENICILLIN G Allergy Unknown Unknown Uncoded 05/03/21 16:31 Review of Systems Review of Systems: Yes all other systems are reviewed and are negative [facility] Past Medical History Medical History Acute UTI Arthritis Bacteremia Diabetes Enterovesical fistula On total parenteral nutrition Osteoporosis Pelvic cancer Rectovaginal fistula Surgical History History of colon resection Hx of cholecystectomy Family History Family History Other No family history of coronary artery disease Social History Social History Household Members: Spouse Housing: House Do you presently have visiting nurse or other home services: No Alcohol intake: never Patient Tobacco Use Status: Never used Tobacco Advance Directives: Yes Advance Directives Information Provided: No Advance Directives on File: No Advance Directives Date on File: 05/04/21 service: No Current occupational status: unemployed and retired Physical Exam ED Vital Signs: Vital Signs - 24 hr 02/18/22 16:10 02/18/22 19:17 Temperature 98.6 F Pulse Rate 127 H 83 Respiratory Rate 16 14 Blood Pressure 110/58 L 118/55 L Pulse Oximetry 98 99 Oxygen Delivery Method Room Air Room Air BMI result Body Mass Index 17.6 Appearance: Alert. Oriented X3. No acute distress. Eyes: pallor++ ENT: Pharynx normal. Oral Mucosa moist Neck: Normal inspection. Neck supple. CVS: Normal heart rate and rhythm. Pulses normal. Respiratory: No respiratory distress. Equal air entry bilateral, no wheezing/rales/rhonchi Abdomen: Soft and nontender. Bowel sounds are present, , no CVA tenderness Skin: Skin warm and dry. Normal skin color. Normal skin turgor. Extremities: 2+ lower extremity edema. No calf tenderness Neuro: Oriented X 3. No motor deficit. No sensory deficit. Medical Decision Making MDM Narrative Medical decision making narrative: Patient PICC line was opened using tPA was given 1 L of saline will discharge patient home with family Discharge Plan Discharge Clinical Impression: Occluded PICC line Patient Disposition: Home, Self-Care Instructions: PICC (Peripherally Inserted Central Catheter) (DC) Additional Instructions: Care of your PICC line as advised taking medication as prescribed Prescriptions: No Action melatonin 5 mg tablet 1 tab PO BEDTIME PRN (Reason: Insomnia) sennosides-docusate sodium [Senna Plus] 8.6-50 mg tablet 2 tab PO DAILY PRN (Reason: Constipation) Label Comments: PER PATIENT: DOES NOT TAKE REGULARLY fentanyl 25 mcg/hr patch 72 hour 1 patch topical Q3D trazodone 50 mg tablet 50 mg PO BEDTIME oxybutynin chloride 10 mg tablet extended release 24 hr 1 tab PO DAILY thiamine HCl (vitamin B1) 100 mg tablet 1 tab DAILY fluticasone propionate 50 mcg/actuation spray,suspension 1 spray intranasal DAILY oxycodone 5 mg tablet 5 mg PO DAILY PRN (Reason: Pain, Mild) multivitamin with folic acid [Daily-Beltran (with folic acid)] 400 mcg tablet 1 tab PO DAILY Pediatric Oint (cod liver oil) Ointment 1 ea TOPICAL TID nystatin 100,000 unit/mL Suspension 200,000 unit buccal QID Qty: 200 0RF Protocol: Apply to: Apply to: swish and swallow Prilosec 10 mg susp,delayed release for recon 20 mg PO DAILY 30 Days Qty: 30 0RF Eliquis 5 mg tablet 5 mg PO BID Qty: 60 0RF Interventions: ED Discharge Assessment Last Done: 02/18/22 21:15 Discharge Date/Time: 02/18/22 21:16
[2022-02-18] MEDS: 0.9 % Sodium Chloride 1,000 ML 999 ML IV (18:24)
[2022-02-18 19:17] VITALS: BP 118/55; PULSE 83; RESP 14; O2SAT 99
[2022-02-18] MEDS: Alteplase Cath Clear 2 MG VIAL INTRACATH (19:26)
[2022-02-18] MEDS: oxyCODONE HCl Immed Release 5 MG TABLET PO (20:26)
--- NOTE | 2022-02-18 20:34 | ECG_ITS ---
Test Reason : cp Blood Pressure : / mmHG Vent. Rate : 091 BPM Atrial Rate : 091 BPM P-R Int : 100 ms QRS Dur : 062 ms QT Int : 336 ms P-R-T Axes : 025 -38 018 degrees QTc Int : 413 ms Sinus rhythm with short SC Left axis deviation Low voltage QRS Abnormal ECG When compared with ECG of 04-FEB-2022 14:08, Nonspecific T wave abnormality no longer evident in Anterolateral leads Referred By: Lior Niño Electronically Signed By:Charles Castelan
== END 2022-02-18 21:16 | disposition home or self-care (01) ==
PROVIDERS: Emergency Provider Internal Medicine; PCP Pediatrics
DX: T82.594A Other mechanical complication of infusion catheter, initial encounter (principal); Y82.8 Other medical devices associated with adverse incidents; Y92.9 Unspecified place or not applicable; E11.9 Type 2 diabetes mellitus without complications; E43 Unspecified severe protein-calorie malnutrition; R23.1 Pallor; R60.0 Localized edema; C56.9 Malignant neoplasm of unspecified ovary; Z87.440 Personal history of urinary (tract) infections; Z79.01 Long term (current) use of anticoagulants
CPT/HCPCS: 93005; 96360; 99284; J1642; J2997

== ENCOUNTER 2022-02-22 10:21 | Emergency (ER) | payer OTHER, SELFPAY ==
--- NOTE | ~2022-02-22 | US_ITS ---
EXAMINATION: US RIGHT UPPER EXTREMITY VENOUS ULTRASOUND US RIGHT LOWER EXTREMITY VENOUS ULTRASOUND CLINICAL INFORMATION: Right upper and right lower extremity swelling and pain. COMPARISON: None TECHNIQUE: Doppler spectral analysis and color flow Doppler imaging was performed of the right upper and right lower extremities. Compression and augmentation maneuvers were performed. Slightly technically limited due to patient's body habitus. FINDINGS: Right upper extremity: The right internal jugular, the right subclavian, the right axillary, the basilic, brachial and the right ulna and the radial veins are widely patent. The proximal cephalic vein is patent while the mid to distal right cephalic veins are not visualized due to overlying dressing. Right lower extremity: The right common femoral, femoral, popliteal and calf veins were well-identified and normal. They demonstrate normal compressibility and color fill-in. US/US venous duplex UE RT IMPRESSION: 1. The right upper extremity venous Doppler study shows no evidence of any thrombosis. The mid to distal part of the right cephalic veins are however not visualized due to overlying dressing, accordingly not evaluated. 2. The right lower extremity venous Doppler study shows no evidence of any thrombosis.
--- NOTE | ~2022-02-22 | US_ITS ---
EXAMINATION: US RIGHT UPPER EXTREMITY VENOUS ULTRASOUND US RIGHT LOWER EXTREMITY VENOUS ULTRASOUND CLINICAL INFORMATION: Right upper and right lower extremity swelling and pain. COMPARISON: None TECHNIQUE: Doppler spectral analysis and color flow Doppler imaging was performed of the right upper and right lower extremities. Compression and augmentation maneuvers were performed. Slightly technically limited due to patient's body habitus. FINDINGS: Right upper extremity: The right internal jugular, the right subclavian, the right axillary, the basilic, brachial and the right ulna and the radial veins are widely patent. The proximal cephalic vein is patent while the mid to distal right cephalic veins are not visualized due to overlying dressing. Right lower extremity: The right common femoral, femoral, popliteal and calf veins were well-identified and normal. They demonstrate normal compressibility and color fill-in. US/US venous duplex LE RT IMPRESSION: 1. The right upper extremity venous Doppler study shows no evidence of any thrombosis. The mid to distal part of the right cephalic veins are however not visualized due to overlying dressing, accordingly not evaluated. 2. The right lower extremity venous Doppler study shows no evidence of any thrombosis.
--- NOTE | ~2022-02-22 | XR_ITS ---
EXAMINATION: XR CHEST CLINICAL INFORMATION: Difficulty flushing right PICC. COMPARISON: 09/23/[address] dated 02/04/2022. TECHNIQUE: Frontal view of the chest was obtained. FINDINGS: Support devices: Right PICC is seen at the tip terminating at the level the atriocaval junction. Ovoid nodule is seen overlying the right lower lung with adjacent infiltrative changes. Mild scattered coarsened interstitial markings are seen bilaterally as well. XR/XR chest 1V IMPRESSION: 1. Right PICC appears in good position without overt abnormality. 2. Known ovoid nodule the right lung base with surrounding infiltrative changes that were not seen previously. Generalized increased interstitial markings bilaterally as well. This could represent an acute infectious/inflammatory process.
[2022-02-22 10:39] VITALS: BP 110/70; BP 125/60; PULSE 100; PULSE 91; RESP 18; TEMP 36.7; O2SAT 94; O2SAT 96; BMI 28.8
[2022-02-22 10:42] LABS: Glucose, Whole Blood 44 mg/dL (60-115)
--- NOTE | 2022-02-22 10:56 | ECG_ITS ---
Test Reason : weakness Blood Pressure : / mmHG Vent. Rate : 092 BPM Atrial Rate : 092 BPM P-R Int : 104 ms QRS Dur : 070 ms QT Int : 376 ms P-R-T Axes : 041 -35 -23 degrees QTc Int : 464 ms Sinus rhythm with short PA Left axis deviation Abnormal ECG When compared with ECG of 18-FEB-2022 20:41, No significant change was found Referred By: Ximena Bueno Electronically Signed By:Charles Castelan
--- NOTE | 2022-02-22 10:59 | ED_ITS ---
HPI - General Adult General Chief complaint: General Medical Stated complaint: RT LEG SWELLING, POC 41, STOMACH PAIN Time Seen by Provider: 02/22/22 10:56 Source: patient, family and old records reviewed Mode of arrival: EMS Limitations: no limitations History of Present Illness HPI narrative: 67 yo female with hx of DM, ovarian cancer with mets palliative goals at this time, enterovesical fistula, recurrent UTIs, SBO, severe malnutrition, GIB, DVT on eliquis, has PICC line in place at home for IVF due to fistula and recurrent need for IVF. Just admitted here 02/04 to 02/15 for thrush and oral HSV with poor nutrition and poor PO intake. Seen here on 02/18 as PILOT CONTROL OPERATOR could not flush PICC line tpa was infused and patient was given IVF. Daughter notes she feels her RLE is more swollen and when she gets fluids at home her R hand swells. Daughter would also like to talk to CM about home PT. MD complaint: weakness, RUE swelling, RLE swelling, PICC line malfunction Onset (ago): week(s) (1+) Severity: moderate Quality: dull Relieving factors: none Exacerbating factors: other (issues with PICC line at home) Associated symptoms: loss of appetite, malaise and weakness Related Data Home Medications Medication Instructions Recorded Confirmed melatonin 5 mg tablet 1 tab PO BEDTIME PRN Insomnia 05/03/21 02/05/22 fentanyl 25 mcg/hr transdermal 1 patch topical Q3D 10/02/21 02/05/22 patch sennosides 8.6 mg-docusate sodium 2 tab PO DAILY PRN Constipation 10/02/21 02/05/22 50 mg tablet (Senna Plus) fluticasone propionate 50 1 spray intranasal DAILY 01/19/22 02/05/22 mcg/actuation nasal spray,suspension multivitamin with folic acid 400 1 tab PO DAILY 01/19/22 02/05/22 mcg tablet (Daily-Beltran (with folic acid)) oxybutynin chloride 10 mg 1 tab PO DAILY 01/19/22 02/05/22 tablet,extended release 24 hr oxycodone 5 mg tablet 5 mg PO DAILY PRN Pain, Mild 01/19/22 02/05/22 thiamine HCl (vitamin B1) 100 mg 1 tab DAILY 01/19/22 02/05/22 tablet trazodone 50 mg tablet 50 mg PO BEDTIME insomnia 01/19/22 02/05/22 zinc oxide-cod liver oil topical 1 ea topical TID 02/05/22 02/05/22 ointment (Pediatric Oint (cod liver oil)) Previous Rx's Medication Instructions Recorded apixaban 5 mg tablet (Eliquis) 5 mg PO BID #60 tabs 02/15/22 nystatin 100,000 unit/mL oral 200,000 unit buccal QID #200 mL 02/15/22 suspension omeprazole magnesium 10 mg oral 20 mg PO DAILY 30 days #30 ea 02/15/22 suspension,delayed release (Prilosec) Allergies Allergy/AdvReac Type Severity Reaction Status Date / Time Iodinated Contrast Media Allergy Severe DIFF.BREATH Verified 02/18/22 16:10 [IV Dye, Iodine Containing] ING Penicillins AdvReac Mild PASSED OUT Verified 02/18/22 16:10 Environmental Allergy Mild ITCHY Uncoded 05/04/20 16:02 EYES/RUNNY NOSE DYE Allergy Unknown Unknown Uncoded 05/03/21 16:31 PENICILLIN G Allergy Unknown Unknown Uncoded 05/03/21 16:31 Review of Systems Review of Systems: Constitutional : No Weight loss, No Fever, No Chills, No Fatigue, No Malaise ENT/Mouth : No sore throat, No Rhinorrhea Eyes: No Eye Pain, No Swelling, No Redness Cardiovascular : No Chest Pain, No SOB, No Dyspnea on Exertion, No Orthopnea, pos Edema, No Palpitations Respiratory : No Cough, No Sputum, No Wheezing Gastrointestinal : No Nausea, No Vomiting, No Diarrhea, No Constipation, No abdominal Pain, No Hematochezia, No Melena Genitourinary : No Dysuria, No Urinary Frequency, No Hematuria, Musculoskeletal : No joint pain, No Myalgias, No Joint Swelling Skin : No Skin Lesions, No rash Neuro : pos Weakness, No Numbness, No Dizziness, No Headache Psych : No Anxiety/Panic, No Depression Heme/Lymph: No Bruising, No Bleeding,No Lymphadenopathy Endocrine : No Polyuria, No Polydipsia All other systems reviewed and are negative [facility] Past Medical History Attestation statement: The following information was validated with the patient. Medical History Acute UTI Arthritis Bacteremia Diabetes DVT (deep venous thrombosis) Enterovesical fistula Hypoalbuminemia On total parenteral nutrition Osteoporosis Pelvic cancer Physical deconditioning Rectovaginal fistula Weakness Surgical History History of colon resection Hx of cholecystectomy Family History Family History Other No family history of coronary artery disease Social History Social History Household Members: Spouse Housing: House Do you presently have visiting nurse or other home services: No Alcohol intake: never Patient Tobacco Use Status: Never used Tobacco Advance Directives: Yes Advance Directives Information Provided: No Advance Directives on File: No Advance Directives Date on File: 05/04/21 service: No Current occupational status: unemployed and retired Physical Exam ED Vital Signs: Vital Signs - 24 hr 02/22/22 10:39 Temperature 98.1 F Pulse Rate 91 Respiratory Rate 18 Blood Pressure 125/60 Pulse Oximetry 96 Oxygen Delivery Method Room Air BMI result Body Mass Index 28.8 Appearance: Lethargic, oriented. No acute distress. Cachectic frail Eyes: Pupils equal, round and reactive to light. ENT: Pharynx dry MM. Neck: Normal inspection. Neck supple. CVS: Normal heart rate and rhythm. Pulses normal. Respiratory: No respiratory distress. Breath sounds normal. Abdomen: Soft and nontender. Skin: Skin warm and dry. pale skin color. poor skin turgor. Extremities: 1+ pitting lower extremity edema. RUE PICC line in place flushes right away and draws back blood without issue on arrival - distal NV intact no swelling or redness in UE Neuro: Oriented X 3. No motor deficit. No sensory deficit. Course Course Course Narrative: PICC is working fine, will recheck blood sugar US pending CXR stable repeat dextrose BS in 50s, family does not want PEG tube, no hospice and if US negative they want to bring her home. They state they want to bring her home tonight. US negative Medical Decision Making MDM Narrative Medical decision making narrative: 67 yo female with hx of DM, ovarian cancer with mets palliative goals at this time, enterovesical fistula, recurrent UTIs, SBO, severe malnutrition, GIB, DVT on eliquis, has PICC line at this time c/o malfunctioning PICC line at home but it flushes on arrival with just saline and pulls back no issues. WIll obtain CXR. Basic labs ordered, has poor PO intake at home given IV dextrose 1 amp - will discuss with CM as well. DVT studies for RLE and RUE but compliant with eliquis suspect probably her low albumin and poor PO intake and that this is the progression of her disease. Lab Data Result diagrams: 02/22/22 11:20 02/22/22 11:20 Labs: Lab Results 02/22/22 02/22/22 02/22/22 Range/Units 10:39 11:02 11:20 WBC 12.7 H (4.8-10.8) X10*3/uL RBC 3.11 L D (4.20-5.50) X10*6/uL Hgb 8.8 L (12.0-16.0) g/dl Hct 27.7 L (37.0-47.0) % MCV 89.1 (80.0-98.0) fL MCH 28.3 (27.0-33.0) pg MCHC 31.8 (31.0-35.0) g/dl RDW 18.8 H (11.0-16.0) % Plt Count 229 (160-400) X10*3/uL MPV 9.8 (9.4-12.3) fL Immature Gran % (Auto) 0.5 H (0.0-0.4) % Neut % (Auto) 87.4 H (45-73) % Lymph % (Auto) 5.8 L (20-40) % Nye % (Auto) 6.0 (2-11) % Eos % (Auto) 0.1 (0-4) % Baso % (Auto) 0.2 (0-2) % Lymph # (Auto) 0.7 L (1.2-4.9) X10*3/uL Nye # (Auto) 0.8 (0.1-1.2) X10*3/uL Eos # (Auto) 0.0 (0.0-0.4) X10*3/uL Baso # (Auto) 0.0 (0.0-0.2) X10*3/uL Abs Immat Gran (auto) 0.07 H (0.00-0.03) X10*3/uL Absolute Neuts (auto) 11.1 H (2.0-8.3) x10*3/uL Absolute Nucleated RBC 0.000 (0.0-0.012) X10*3/uL Nucleated RBC % (auto) 0.0 (0.0-0.2) /100WBC PT (10.0-13.1) SEC INR (0.9-1.1) Sodium (135-145) mmol/L Potassium (3.3-5.1) mmol/L Chloride (96-108) mmol/L Carbon Dioxide (22-29) mmol/L Anion Gap (12-20) BUN (9-16) mg/dL Creatinine (0.5-1.4) mg/dL Estim Creat Clear Calc Estimated GFR POC Glucose 44 L* 101 (60-115) mg/dL Random Glucose (60-115) mg/dL Calcium (8.4-10.2) mg/dL Magnesium (1.6-2.6) mg/dL Total Bilirubin (0.0-1.0) mg/dL Direct Bilirubin (0.0-0.5) mg/dL AST (5-31) U/L ALT (0-31) U/L Alkaline Phosphatase (39-117) U/L Total Protein (6.5-8.0) g/dL Albumin (3.5-5.0) g/dL COVID-19 ([facility]) (Negative) COVID-19 Clin Com 02/22/22 02/22/22 02/22/22 Range/Units 11:20 11:20 11:20 WBC (4.8-10.8) X10*3/uL RBC (4.20-5.50) X10*6/uL Hgb (12.0-16.0) g/dl Hct (37.0-47.0) % MCV (80.0-98.0) fL MCH (27.0-33.0) pg MCHC (31.0-35.0) g/dl RDW (11.0-16.0) % Plt Count (160-400) X10*3/uL MPV (9.4-12.3) fL Immature Gran % (Auto) (0.0-0.4) % Neut % (Auto) (45-73) % Lymph % (Auto) (20-40) % Nye % (Auto) (2-11) % Eos % (Auto) (0-4) % Baso % (Auto) (0-2) % Lymph # (Auto) (1.2-4.9) X10*3/uL Nye # (Auto) (0.1-1.2) X10*3/uL Eos # (Auto) (0.0-0.4) X10*3/uL Baso # (Auto) (0.0-0.2) X10*3/uL Abs Immat Gran (auto) (0.00-0.03) X10*3/uL Absolute Neuts (auto) (2.0-8.3) x10*3/uL Absolute Nucleated RBC (0.0-0.012) X10*3/uL Nucleated RBC % (auto) (0.0-0.2) /100WBC PT 30.4 H (10.0-13.1) SEC INR 2.5 H (0.9-1.1) Sodium 131 L (135-145) mmol/L Potassium 3.9 (3.3-5.1) mmol/L Chloride 104 (96-108) mmol/L Carbon Dioxide 21 L (22-29) mmol/L Anion Gap 10 L (12-20) BUN 10 (9-16) mg/dL Creatinine 0.73 (0.5-1.4) mg/dL Estim Creat Clear Calc 63.8 Estimated GFR > 60 POC Glucose (60-115) mg/dL Random Glucose 215 H (60-115) mg/dL Calcium 7.0 L (8.4-10.2) mg/dL Magnesium 1.7 (1.6-2.6) mg/dL Total Bilirubin 0.8 (0.0-1.0) mg/dL Direct Bilirubin 0.8 H (0.0-0.5) mg/dL AST 74 H (5-31) U/L ALT 18 (0-31) U/L Alkaline Phosphatase 895 H (39-117) U/L Total Protein 6.6 (6.5-8.0) g/dL Albumin 1.4 L (3.5-5.0) g/dL COVID-19 ([facility]) Negative (Negative) COVID-19 Clin Com See Note 02/22/22 Range/Units 16:14 WBC (4.8-10.8) X10*3/uL RBC (4.20-5.50) X10*6/uL Hgb (12.0-16.0) g/dl Hct (37.0-47.0) % MCV (80.0-98.0) fL MCH (27.0-33.0) pg MCHC (31.0-35.0) g/dl RDW (11.0-16.0) % Plt Count (160-400) X10*3/uL MPV (9.4-12.3) fL Immature Gran % (Auto) (0.0-0.4) % Neut % (Auto) (45-73) % Lymph % (Auto) (20-40) % Nye % (Auto) (2-11) % Eos % (Auto) (0-4) % Baso % (Auto) (0-2) % Lymph # (Auto) (1.2-4.9) X10*3/uL Nye # (Auto) (0.1-1.2) X10*3/uL Eos # (Auto) (0.0-0.4) X10*3/uL Baso # (Auto) (0.0-0.2) X10*3/uL Abs Immat Gran (auto) (0.00-0.03) X10*3/uL Absolute Neuts (auto) (2.0-8.3) x10*3/uL Absolute Nucleated RBC (0.0-0.012) X10*3/uL Nucleated RBC % (auto) (0.0-0.2) /100WBC PT (10.0-13.1) SEC INR (0.9-1.1) Sodium (135-145) mmol/L Potassium (3.3-5.1) mmol/L Chloride (96-108) mmol/L Carbon Dioxide (22-29) mmol/L Anion Gap (12-20) BUN (9-16) mg/dL Creatinine (0.5-1.4) mg/dL Estim Creat Clear Calc Estimated GFR POC Glucose 51 L* (60-115) mg/dL Random Glucose (60-115) mg/dL Calcium (8.4-10.2) mg/dL Magnesium (1.6-2.6) mg/dL Total Bilirubin (0.0-1.0) mg/dL Direct Bilirubin (0.0-0.5) mg/dL AST (5-31) U/L ALT (0-31) U/L Alkaline Phosphatase (39-117) U/L Total Protein (6.5-8.0) g/dL Albumin (3.5-5.0) g/dL COVID-19 ([facility]) (Negative) COVID-19 Clin Com ECG Data Attestation: I personally reviewed and interpreted this ECG as follows: Interpretation: Rate: 92 Rhythm: NSR [place]: left Normal P waves. Normal VICENTE. Normal QRS complex. ST T wave : normal no CARLO qTC: normal prior studies: no acute ischemia The study has been interpreted contemporaneously by me. . Discharge Plan Discharge Clinical Impression: Adult failure to thrive, Occluded PICC line, Malnutrition, Hypoglycemia Patient Disposition: Home, Self-Care Instructions: Malnutrition (DC), Non-diabetic Hypoglycemia (ED), Failure to Thrive in Older Adults (ED) Additional Instructions: return to ED for any worsening symptoms or concerns Right upper extremity: The right internal jugular, the right subclavian, the right axillary, the basilic, brachial and the right ulna and the radial veins are widely patent. The proximal cephalic vein is patent while the mid to distal right cephalic veins are not visualized due to overlying dressing. Right lower extremity: The right common femoral, femoral, popliteal and calf veins were well-identified and normal. They demonstrate normal compressibility and color fill-in. ? US/US venous duplex UE RT IMPRESSION: ? 1. The right upper extremity venous Doppler study shows no evidence of any thrombosis. The mid to distal part of the right cephalic veins are however not visualized due to overlying dressing, accordingly not evaluated. 2. The right lower extremity venous Doppler study shows no evidence of any thrombosis. Prescriptions: No Action melatonin 5 mg tablet 1 tab PO BEDTIME PRN (Reason: Insomnia) sennosides-docusate sodium [Senna Plus] 8.6-50 mg tablet 2 tab PO DAILY PRN (Reason: Constipation) Label Comments: PER PATIENT: DOES NOT TAKE REGULARLY fentanyl 25 mcg/hr patch 72 hour 1 patch topical Q3D trazodone 50 mg tablet 50 mg PO BEDTIME oxybutynin chloride 10 mg tablet extended release 24 hr 1 tab PO DAILY thiamine HCl (vitamin B1) 100 mg tablet 1 tab DAILY fluticasone propionate 50 mcg/actuation spray,suspension 1 spray intranasal DAILY oxycodone 5 mg tablet 5 mg PO DAILY PRN (Reason: Pain, Mild) multivitamin with folic acid [Daily-Beltran (with folic acid)] 400 mcg tablet 1 tab PO DAILY Pediatric Oint (cod liver oil) Ointment 1 ea TOPICAL TID nystatin 100,000 unit/mL Suspension 200,000 unit buccal QID Qty: 200 0RF Protocol: Apply to: Apply to: swish and swallow Prilosec 10 mg susp,delayed release for recon 20 mg PO DAILY 30 Days Qty: 30 0RF Eliquis 5 mg tablet 5 mg PO BID Qty: 60 0RF
[2022-02-22 11:07] LABS: Glucose, Whole Blood 101 mg/dL (60-115)
[2022-02-22 11:25] LABS: MANUAL DIFF FLAG NO
[2022-02-22 11:26] LABS: Basophils Percent Auto 0.2 % (0-2); Eosinophils Percent Auto 0.1 % (0-4); Hematocrit 27.7 % (37.0-47.0); Hemoglobin 8.8 g/dl (12.0-16.0); Imm Gran Abs Auto 0.07 X10*3/uL (0.00-0.03); Imm Gran Pct Auto 0.5 % (0.0-0.4); Lymphocytes Absolute Auto 0.7 X10*3/uL (1.2-4.9); Lymphocytes Percent Auto 5.8 % (20-40); Mean Corpuscular HGB Conc 31.8 g/dl (31.0-35.0); Mean Corpuscular Hemoglobin 28.3 pg (27.0-33.0); Mean Corpuscular Volume 89.1 fL (80.0-98.0); Mean Platelet Volume 9.8 fL (9.4-12.3); Monocytes Absolute Auto 0.8 X10*3/uL (0.1-1.2); Neutrophils Absolute Auto 11.1 x10*3/uL (2.0-8.3); Neutrophils Percent Auto 87.4 % (45-73); Platelet Count 229 X10*3/uL (160-400); Red Blood Count 3.11 X10*6/uL (4.20-5.50); Red Cell Distribution Width 18.8 % (11.0-16.0); White Blood Count 12.7 X10*3/uL (4.8-10.8)
[2022-02-22] MEDS: Lactated Ringers 1,000 ML 999 ML IV (11:31)
[2022-02-22 11:32] LABS: INTERNATIONAL NORM RATIO 2.5 (0.9-1.1); Prothrombin Time 30.4 SEC (10.0-13.1)
[2022-02-22] MEDS: Dextrose 50 % 25 GM/50 ML SYRINGE IVPUSH ×2 (11:33→16:24)
--- NOTE | 2022-02-22 11:33 | PC.NURSE ---
Patients pulses palpate bilaterally. Right leg was ore swollen upon arrival, legs are elevated and appear equal in size at this time.
[2022-02-22 11:42] LABS: COVID-19 Test Negative (Negative); IDNOW Serial# 16C4AD1C
[2022-02-22 11:45] LABS: Alanine Aminotransferase 18 U/L (0-31); Albumin Level 1.4 g/dL (3.5-5.0); Alkaline Phosphatase 895 U/L (39-117); Anion Gap 10 (12-20); Aspartate Amino Transferase 74 U/L (5-31); Bilirubin Direct 0.8 mg/dL (0.0-0.5); Bilirubin Total 0.8 mg/dL (0.0-1.0); Blood Urea Nitrogen 10 mg/dL (9-16); Carbon Dioxide 21 mmol/L (22-29); Chloride 104 mmol/L (96-108); Creatinine Clr Calc Pharmacy 63.8; Estimated Glomerular Filt Rate > 60; Glucose Random 215 mg/dL (60-115); Magnesium 1.7 mg/dL (1.6-2.6); Potassium 3.9 mmol/L (3.3-5.1); Sodium 131 mmol/L (135-145); Total Protein 6.6 g/dL (6.5-8.0)
[2022-02-22] MEDS: Albumin Human 25 % 100 ML IV (12:15)
[2022-02-22 16:18] LABS: Glucose, Whole Blood 51 mg/dL (60-115)
--- NOTE | 2022-02-22 16:45 | MHC.CM.ED ---
CM met with patient and family at the request of Dr. Bueno. A&Ox3. PCP Dr. Katalina Larson. HCP on file. HCP#1/son Abdoul Turner ([phone]) & HCP2/daughter Noemy Turner ([phone]. Pt has ovarian CA with mets and has palliative care. Pt states she is comfortable and denies pain. Pt is very thin, but appears well cared for. Lives with . Has 24/7 BUSINESS CONTROL SPECIALIST (granddaughter) who lives with her and has family supports. [facility] provides snf. Pt has a W/C, cane and walker. Has not walked much in the past 2-3 weeks. Daughter denies need for further supports. Dr. Bueno spoke with patient regarding hospice. Daughter states that they do not want hospice, and that they have met with hospice and feel they can care for her at home. Pt has pain medications and fentanyl patch. Pt has PICC line for IV hydration if needed. Dr. Bueno spoke to daughter regarding PEG tube, as pt is malnourished, but daughter declines. States pt does eat small amounts. Daughter appears to have good understanding of pt illness, care needs and family supports. CM suggested MOLST completion to MD, but provider feels that daughter has declined PEG and did not want to address at this time. Daughter would like to take patient home, as her venous scans are negative for DVT. Given CM contact card with instructions to call at any time if she needs assistance. Daughter assures CM and Dr. Bueno that if the time comes for Hospice, she will speak with her PCP. Daughter also informed that she can speak with [facility] nurse. CM will follow for d/c needs.
[2022-02-22 16:53] LABS: Glucose, Whole Blood 85 mg/dL (60-115)
[2022-02-22 17:38] LABS: Glucose, Whole Blood 141 mg/dL (60-115)
== END 2022-02-22 21:02 | disposition home or self-care (01) ==
PROVIDERS: Emergency Provider Emergency Medicine
DX: R62.7 Adult failure to thrive (principal); E46 Unspecified protein-calorie malnutrition; E16.2 Hypoglycemia, unspecified; T82.594A Other mechanical complication of infusion catheter, initial encounter; Y82.8 Other medical devices associated with adverse incidents; Y92.019 Unspecified place in single-family (private) house as the place of occurrence of the external cause; R60.0 Localized edema; Z20.822 Contact with and (suspected) exposure to COVID-19; R53.1 Weakness; R53.83 Other fatigue; C56.9 Malignant neoplasm of unspecified ovary; C76.3 Malignant neoplasm of pelvis; E11.9 Type 2 diabetes mellitus without complications; Z86.718 Personal history of other venous thrombosis and embolism; Z79.01 Long term (current) use of anticoagulants
CPT/HCPCS: 71045; 80048; 80076; 82947; 83735; 85025; 85610; 87635; 93005; 93971; 96361; 96365; 96375; 96376; 99284; P9047

== ENCOUNTER 2022-03-02 02:32 | Inpatient (IN) | payer OTHER, SELFPAY ==
[2022-03-02] VITALS (27 sets, daily range): BP systolic 96–133; BP diastolic 39–70; PULSE 94–148; RESP 10–22; TEMP 36.4–37.6; O2SAT 88–100; BMI 18.5; BMI 19.6
--- NOTE | 2022-03-02 | ECG_ITS ---
Test Reason : AMS Blood Pressure : / mmHG Vent. Rate : 123 BPM Atrial Rate : 123 BPM P-R Int : 090 ms QRS Dur : 060 ms QT Int : 326 ms P-R-T Axes : 054 -30 229 degrees QTc Int : 466 ms Sinus tachycardia with short KS with Premature supraventricular complexes Left axis deviation Low voltage QRS Nonspecific T wave abnormality Abnormal ECG When compared with ECG of 22-FEB-2022 11:12, Premature supraventricular complexes are now Present Nonspecific T wave abnormality, worse in Anterolateral leads Referred By: Generic ED Physician Electronically Signed By:GHADA PENA MD
--- NOTE | ~2022-03-02 | XR_ITS ---
EXAMINATION: XR CHEST CLINICAL INFORMATION: Shortness of breath, hypoxic COMPARISON: 02/22/2022 TECHNIQUE: Frontal view of the chest was obtained. FINDINGS: Right PICC tip lies in the region of the right atrium. Lung volumes are symmetric. There are small bilateral pleural effusions with adjacent bibasilar opacities. Fissural fluid is also suspected on the right. Bilateral lung nodules visible on prior CT are not as well demonstrated radiographically. No appreciable pneumothorax. The cardiomediastinal contour is unremarkable. No acute osseous findings are seen. XR/XR chest 1V IMPRESSION: Small bilateral pleural effusions with adjacent bibasilar opacities, favored to at least partially be due to atelectasis. Fissural extension of fluid is suspected on the right. Known bilateral lung nodules are not well demonstrated radiographically.
--- NOTE | ~2022-03-02 | US_ITS ---
EXAMINATION: US VENOUS ULTRASOUND WITH DOPPLER LOWER EXTREMITY, RIGHT CLINICAL INFORMATION: Recent DVT right lower extremity. Follow-up. COMPARISON: Right lower extremity venous ultrasound with Doppler 02/22/2022, 02/07/2022. CT pelvis noncontrast 03/02/2022. TECHNIQUE: Ultrasound of the deep veins is performed from the hip to the calf with compression sonography and color and pulse Doppler assessment. Spectral analysis with color-flow imaging is performed. FINDINGS: There is partial thrombus again seen in the right common femoral vein with incomplete compressibility and incomplete color Doppler in the lumen. Similar findings noted on venous ultrasound 02/07/2022. There is reversal of flow in the greater saphenous vein with some scattered partial thrombus in the greater saphenous. There is also thrombus correlate in the leg involving the profunda femoris and the femoral vein in the upper to mid thigh. There is no thrombus demonstrated in the trifurcation, popliteal vein, or caudal aspect femoral vein. These areas show normal compressibility and respiratory variation with augmented flow. There is a prominent hypoechoic node again seen right inguinal region just under 2 cm. No abnormal color flow. Results called and discussed with Dr. Kaufman at 1423 hours on 03/05/2022. US/US venous duplex LE RT IMPRESSION: -Positive for DVT mid and upper right thigh involving femoral and profundus femoral veins. Partial thrombus in common femoral vein similar to prior ultrasound 02/07/2022. -Scattered thrombus greater saphenous vein with reversal of flow upper aspect.
--- NOTE | ~2022-03-02 | XR_ITS ---
EXAMINATION: XR ABDOMEN KUB CLINICAL INDICATION: Question continued small bowel obstruction COMPARISON: CT scan of March 02, 2022 TECHNIQUE: AP view of the abdomen. FINDINGS: No dilated loops of large or small bowel are evident. There is a right pleural effusion. Status post cholecystectomy XR/XR KUB IMPRESSION: No evidence of ileus or obstruction.
--- NOTE | ~2022-03-02 | XR_ITS ---
EXAMINATION: XR CHEST CLINICAL INFORMATION: Compare with VQ scan. COMPARISON: V/Q scan of same day and study of March 02, 2022 TECHNIQUE: AP portable view of the chest was obtained. FINDINGS: There are bilateral pleural effusions present right greater than left there is redistribution of vasculature and some interstitial and airspace disease as well as bronchial wall thickening and a perihilar appearance to disease consistent with pulmonary vascular congestion/edema. Heart normal size. No pneumothorax identified. Retrocardiac disease appears more prominent than on prior examination of March 02, 2022. Right upper extremity PICC line with tip at caval atrial junction. XR/XR chest 1V IMPRESSION: Pulmonary vascular congestion of cardiogenic or noncardiogenic etiology. Bibasilar airspace disease with small bilateral pleural effusions right greater than left. Findings are concordant with nuclear medicine pulmonary perfusion study.
--- NOTE | ~2022-03-02 | CT_ITS ---
EXAMINATION: CT ABDOMEN AND PELVIS WITHOUT CONTRAST CLINICAL INFORMATION: Vomiting, history of ovarian cancer, small bowel obstructions COMPARISON: 02/04/2022 TECHNIQUE: Multidetector volumetric imaging was performed from the superior aspect of the liver through the pubic symphysis. Sagittal and coronal reformatted images were obtained on the technologist's workstation. This CT examination was performed using dose optimization techniques as appropriate, variously including the following: *Automated exposure control *Adjustment of mA and/or kV according to patient size (this includes techniques or standardized protocols for targeted exams where dose is matched to indication/reason for exam; i.e. extremities or head) *Use of iterative reconstruction technique DLP: 398 mGy-cm FINDINGS: LUNG BASES: Partially visualized small pleural effusions with adjacent bibasilar opacities. Previously identified nodularity is not as well demonstrated on this exam. LIVER, GALLBLADDER, AND BILIARY TREE: Extensive masses are redemonstrated throughout the liver, grossly similar to prior. No biliary ductal dilatation. Patient is status post cholecystectomy. PANCREAS: Partial fatty atrophy is noted. SPLEEN: Unremarkable. ADRENAL GLANDS: Unremarkable. KIDNEYS AND URETERS: Moderate bilateral hydroureteronephrosis is noted, similar on the left and increased on the right compared to prior. No obstructing calculus is seen. BLADDER: Minimally distended, with a thick-walled appearance. Mild hyperdensity is noted in the right aspect of the bladder. GASTROINTESTINAL TRACT: There are several mildly to moderately dilated gas and fluid-filled small bowel loops in the left abdomen. Other small bowel loops in the abdomen appear nondilated, and overall pattern raises suspicion for small bowel obstruction. No discrete transition point is identified. There is some fluid distention of the colon. Suture lines noted in the central to right abdomen. Small amount of free fluid is present. ABDOMINAL WALL: Anasarca is noted. LYMPH NODES: Suboptimally assessed without intravenous contrast. Redemonstrated retroperitoneal adenopathy, similar to prior. Enlarged inguinal lymph nodes are also redemonstrated. VASCULAR: Suboptimally assessed without intravenous contrast. Moderate atherosclerotic calcifications are noted. PELVIC VISCERA: Status post hysterectomy. The pelvic region is not well assessed without intravenous contrast. There is soft tissue fullness in the pelvis which appears overall increased from prior, concerning for progressive adenopathy. OSSEOUS STRUCTURES: Scattered degenerative changes noted. CT/CT abdomen pelvis wo con IMPRESSION: 1. Several dilated small bowel loops in the left abdomen, concerning for obstruction. Discrete transition point is not identified. 2. Suboptimal assessment of the pelvis without intravenous contrast. However, there is suspected increasing soft tissue density suspicious for worsening malignancy. 3. Moderate bilateral hydroureteronephrosis, similar on the left and increased in the right compared to prior. Appearance is concerning for sequelae of mass effect on the distal ureters. 4. Extensive hepatic masses redemonstrated. 5. Redemonstrated retroperitoneal and bilateral inguinal lymphadenopathy. 6. Small amount of free fluid. 7. Partially visualized small pleural effusions and adjacent bibasilar opacities favoring atelectasis.
--- NOTE | ~2022-03-02 | NM_ITS ---
PULMONARY PERFUSION ONLY STUDY: CLINICAL INDICATION: Tachycardia. Positive DVT study at right lower extremity. Patient apparently has allergy to iodinated contrast medium. PROCEDURE: Following the intravenous administration of 4.0 millicuries technetium 99m MAA, images of the chest were obtained in multiple projections using a gamma scintiphotographic camera. The radiotracer was injected through right upper arm PICC line without complications. COMPARISON: Chest radiograph done today, and on 03/02/2022 and right lower extremity DVT study done on 03/04/2022. PERFUSION IMAGES: No segmental perfusion defects or other perfusion abnormalities are noted. Note is made of nonsegmental mild decrease radiotracer activities along the course of the bilateral pleural fissures including the right minor fissure, consistent with changes secondary to bilateral small pleural effusions, as is documented on the current chest radiograph as well as on the previous chest radiograph. NM/NM pul perfusion IMPRESSION: Based on perfusion only modified PIOPED 2 criteria, PE is absent.
[2022-03-02] MEDS: 0.9 % Sodium Chloride 1,000 ML 999 ML IVCONT ×2 (02:47→05:35)
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
[2022-03-02 02:56] LABS: MANUAL DIFF FLAG NO
[2022-03-02 02:58] LABS: Basophils Percent Auto 0.1 % (0-2); Eosinophils Percent Auto 0.1 % (0-4); Hematocrit 24.5 % (37.0-47.0); Hemoglobin 8.2 g/dl (12.0-16.0); Imm Gran Abs Auto 0.13 X10*3/uL (0.00-0.03); Imm Gran Pct Auto 0.7 % (0.0-0.4); Lymphocytes Absolute Auto 1.5 X10*3/uL (1.2-4.9); Lymphocytes Percent Auto 7.7 % (20-40); Mean Corpuscular HGB Conc 33.5 g/dl (31.0-35.0); Mean Corpuscular Hemoglobin 28.9 pg (27.0-33.0); Mean Corpuscular Volume 86.3 fL (80.0-98.0); Mean Platelet Volume 10.8 fL (9.4-12.3); Monocytes Absolute Auto 1.1 X10*3/uL (0.1-1.2); Monocytes Percent Auto 5.7 % (2-11); Neutrophils Absolute Auto 16.8 x10*3/uL (2.0-8.3); Neutrophils Percent Auto 85.7 % (45-73); Platelet Count 213 X10*3/uL (160-400); Red Blood Count 2.84 X10*6/uL (4.20-5.50); Red Cell Distribution Width 21.8 % (11.0-16.0); White Blood Count 19.6 X10*3/uL (4.8-10.8)
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
[2022-03-02 03:07] LABS: GASOB Int Neg Ctl Valid YES; GASOB Int Pos Ctl Valid YES; Occult Blood Gastric POSITIVE (NEG)
[2022-03-02 03:07] LABS: INTERNATIONAL NORM RATIO 3.9 (0.9-1.1); Prothrombin Time 47.7 SEC (10.0-13.1)
[2022-03-02 03:08] LABS: GASOB Lot 20512
[2022-03-02 03:09] LABS: D Dimer High Sensitivity 2003 NG/ML; Venous Blood Gas Refer to POC result
[2022-03-02 03:09] LABS: VBG Base Excess 5.6 mmol/L; VBG HCO3 27 mmol/L (22-26); VBG pCO2 31 mmHg; VBG pH 7.55 (7.32-7.43); VBG pO2 95 mmHg
[2022-03-02 03:15] LABS: COVID-19 Test Negative (Negative)
--- NOTE | 2022-03-02 03:21 | PC.NURSE ---
While settling patient into room and triaging, assessing, and treating patient per orders, supervisor in charge comes into room and asks if patient is able to have visitors. This RN explains that pt is not yet dressed; another few minutes before visitors into room. At that time, pt's son enters into room with two security guards as a physical barrier between son and patient as pt's son is aggravated, yelling, with threatening posture. Pt asks please let him give me a kiss and then he'll leave. Pt's son permitted to bedside, gives patient a hug and kiss, and exits room. Pt to ED CT. While pt at CT, a female visitor is found pacing around the ED. She was asked where she is going; she yells I need to see my mom. I'm looking for my mom. Someone needs to be with her at all times, she cannot be alone. She's dying! Security to dept to assist. Pt's daughter non-redirectable, screaming MAMA! MAMA! That's my mom! I need to be with her. Security acting as physical barrier between pt's daughter and facility staff. This RN to try and de-escalate, explaining that pt is currently in CT scan and nobody can be in the room with her d/t radiation from the machine. Pt's daughter screams I don't believe you! I need to be by her side; someone needs to be by her side at all times! Where is she?! Let me get her! Pt's daughter begins ambulating towards CT. Pt's daughter's behavior escalates. Security instructing pt's daughter to leave the dept. Pt's daughter refusing, yelling I want her to leave here, then! I want her out of here; I don't want her here! I'm her healthcare proxy. Pt's daughter handcuffed patient and [employer] contacted. Dr. Trinidad made aware that pt's daughter states she is the HCP and would like to have pt sign out AMA. [facility] staff able to locate HCP form, print it, and note that pt's daughter is HCP. Dr. Trinidad to pt's bedside in [place] with this RN and Brittanie Patricia, cardiothoracic surgeon. Dr. Trinidad asks pt if she would prefer to speak in [place] or [place]. Pt chooses Taj[place]. Dr. Trinidad assesses pt's level of orientation. Pt oriented to self, place, situation and time. Risks of leaving AMA were explained to pt by Dr. Trinidad. Dr Trinidad explains to pt that her children came into ED agitated and have had to had the table maker called. Pt verbalizes understanding and voices that she would like to remain as a patient in [facility] ED. Pt denies wanting to leave AMA. When this RN, Brittanie RN, and Dr. Trinidad leave pt's bedside in [place], this RN notes that pt's daughter and security have left the dept. Staff made this RN aware that pt's was calm and cooperative in [place], wanting to come and see patient and is agreeable to remaining calm and cooperative, is agreeable to plan for remaining a patient.
[2022-03-02 03:22] LABS: B Type Natriuretic Peptide 118 pg/mL (<100); Troponin-I High Sensitivity 7.3 ng/L (<3.5-17.0)
[2022-03-02 03:26] LABS: Glucose, Whole Blood 45 mg/dL (60-115)
[2022-03-02 03:35] LABS: Alanine Aminotransferase 14 U/L (0-31); Albumin Level 1.5 g/dL (3.5-5.0); Alkaline Phosphatase 669 U/L (39-117); Anion Gap 15 (12-20); Aspartate Amino Transferase 89 U/L (5-31); Bilirubin Direct 1.6 mg/dL (0.0-0.5); Bilirubin Total 1.9 mg/dL (0.0-1.0); Blood Urea Nitrogen 23 mg/dL (9-16); Calcium 6.7 mg/dL (8.4-10.2); Carbon Dioxide 24 mmol/L (22-29); Chloride 101 mmol/L (96-108); Creatinine Clr Calc Pharmacy 30.9; Estimated Glomerular Filt Rate 45; Glucose Random 60 mg/dL (60-115); Lipase 6 U/L (8-78); Magnesium 1.5 mg/dL (1.6-2.6); Potassium 4.9 mmol/L (3.3-5.1); Sodium 135 mmol/L (135-145); Total Protein 6.6 g/dL (6.5-8.0)
[2022-03-02 03:37] LABS: Lactic Acid 4.5 mmol/L (0.5-2.0)
[2022-03-02 03:49] LABS: Glucose, Whole Blood 118 mg/dL (60-115)
[2022-03-02] MEDS: ondansetron HCL 4 MG/2 ML VIAL IVPUSH (04:35)
[2022-03-02] MEDS: Magnesium Sulfate/H2O 2 GM/50 ML PIGGYBACK IV (04:37)
[2022-03-02 04:46] LABS: OBS Int Ctl Valid YES; OBS1 POSITIVE (NEGATIVE)
[2022-03-02 04:48] LABS: Appearance Urine TURBID; Color Urine RED; Glucose Urine UA 250 MG/DL (NEG); Leukocyte Esterase Urine 3+ (NEG); Nitrite Urine POS (NEG); PH 8.5 (5.0-8.0); Specific Gravity - Urine <= 1.005 (1.005-1.025); UACC Culture Trigger YES; Urine Blood 3+ (NEG); Urine Ketones 40 MG/DL (NEG)
[2022-03-02 04:51] LABS: Urine Protein 3+ MG/DL (NEG-TRACE)
[2022-03-02 04:54] LABS: Reflex Lactate? Lactic Acid Added
[2022-03-02 04:56] LABS: Hyaline Casts Urine 0-2 /LPF; Waxy Casts Urine 0-2 /LPF
[2022-03-02 04:58] LABS: Bacteria Urine 4+ /LPF; RBC Urine TNTC /HPF (0)
[2022-03-02 05:09] LABS: Hematocrit 21.7 % (37.0-47.0); Hemoglobin 7.2 g/dl (12.0-16.0)
[2022-03-02] MEDS: Pantoprazole Sodium 40 MG/10 ML VIAL 80 MG IVPUSH (05:26)
[2022-03-02] MEDS: Octreotide Acetate 100 MCG/ML AMPUL 50 MCG IVPUSH (05:29)
[2022-03-02] MEDS: levoFLOXacin/D5W 500 MG/100 ML PIGGYBACK 100 MG IV (06:21)
--- NOTE | 2022-03-02 06:29 | PC.NURSE ---
Per Dr Trinidad, continue with q2h lactic until WNL. Also, plan for 2nd unit of blood after 1st is complete.
[2022-03-02 07:00] LABS: Glucose, Whole Blood 76 mg/dL (60-115)
[2022-03-02 07:07] LABS: Reflex Lactate? 2 Y
[2022-03-02 08:11] LABS: ~Lactic Acid-LAB USE ONLY 3.8 mmol/L (0.5-2.0)
--- NOTE | 2022-03-02 10:02 | PHA.MEDREC ---
Pharmacy Consult ? Medication Reconciliation Pharmacy has completed the medication reconciliation. Spoke with daughter who did not have a list of medications her mom is taking with her. She was familiar with some medications. daughter states patient is on fentanyl patches q3d and the strength depends on her pain .
[2022-03-02] MEDS: Albumin Human 25 % 100 ML IV ×2 (10:47→11:16)
--- NOTE | 2022-03-02 11:41 | P.HPCC_ITS ---
History of Present Illness Date of Service: 03/02/22 Attending physician on admission: Jayson Dela Cruz Chief Complaint: Hematemesis and BRBPR Mrs. Turner was admitted to the ICU this morning with upper GI bleeding. The patient is a 67 yo woman with advanced metastatic ovarian cancer, first diagnosed in 2013, with recurrence in 2016, and had been on chemotherapy until 2019.? She has been treated previously at [facility] and at [facility].? Her last visit with her oncologist Dr. Calhoun was in July,.? She has not received any chemotherapy since 2019.? In June 2020 she was noted to have progression of her disease and developed an enterovesical fistula.? In December of 2020 she underwent laparotomy, small-bowel resection, repair of a colovesical fistula, and bladder repair.? 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 In July 2021 her oncologist discussed DNR/DNI status and hospice care with the patient, given that she had significant progression of her cancer and her performance status had declined significantly.? She was felt not to be candidate for further chemotherapy.? However, the patient was not willing to agree to h ospice care. The patient was admitted to [facility] in September, with pelvic pain and colovesical fistula.? CT scan showed extensive carcinomatosis and extensive disease in her pelvis with multiple peritoneal implants, worsening pulmonary nodules, and metastatic disease in the liver.? A Diaz catheter was placed and the Diaz catheter tip entered an adjacent small bowel loop.? At that time, Dr. Duenas advised that the patient was no longer a candidate for palliative chemotherapy.? She was treated for UTI.? For iron deficiency anemia, she recommended blood transfusion.? The patient was seen by Dr. Lyn and he opined that she is not a candidate for surgical intervention.? From the notes that I read in her chart, it seems that the family was resistant to hospice and DNR status, but the patient herself did not want any intubation or artificial life support and was more receptive to the idea of hospice care.? Ultimately she was discharged home on antibiotics. She was readmitted February 04-February 15 for failure to thrive.? She was found to have hyponatremia, possible oral HSV with pain in the mouth, and chronic pain. ?On February 07, she was found to have DVT of the RLE.? She was started on Eliquis.? She had some rectal bleeding at that hospitalization, thought to be hemorrhoidal.? She was transfused 2 units of RBCs.? She was treated with IV ac yclovir and nystatin, and she was given PPN.? Family did not wish to have a PEG.? As far as I can tell, she was discharged back to home. HISTORY OF PRESENT ILLNESS: The patient was BIBA from home early this morning because the family called because the patient was vomiting ?dark stuff all day?, and passing blood in her stool.? Per EMS, on arrival the patient had Sat in low 60s.? On 6 L nasal cannula, SpO2 was high 90s. In the ED, the patient was complaining of nausea and vomiting and abdominal pain.? Heart rate was 123, blood pressure 133/70, respiratory rate was 17 on 3 L oxygen, with sat of 99%.? She was afebrile.? Height is 5 ft, weight 45 kg, BMI 18.? The patient was alert, and oriented x3.? Breathing easy.? The abdomen was soft, but tender throughout.? Digital rectal exam showed fresh blood, and a small gush of red blood.? There was stool and blood in the vaginal vault. Labs in the ED were notable for a white count 19.6, hemoglobin 8.2 (was 8.8 one week ago), PT 47/3.9, sodium was 135, BUN/creatinine 23/1.2 (was 10/0.7), bicarb was 24, glucose was 60, lactic acid was 4.5, magnesium was 1.5, total bili was 1.9 (was 0.8) albumin was 1.5.? Venous blood gas showed 7.55/31/+[address] (compared to CT from February 04) showed several dilated small bowel loops in the left abdomen, not seen on the earlier CT, concerning for obstruction. ?A discrete transition point is not identified.? Increasing soft tissue density in the pelvis suspicious for worsening malignancy.? Moderate bilateral hydroureteronephrosis, similar on the left and increased in the right compared to prior CT, concerning for sequelae of mass effect on the distal ureters.? Redemonstrated extensive hepatic masses and retroperitoneal and bilateral inguinal lymphadenopathy. The patient was given Kcentra, an amp of D50, ceftriaxone, magnesium, 1 unit of blood, and IV fluids.? On my recommendation, the patient was also given Protonix and octreotide, and scheduled for admission to ICU.? There was no further rectal bleeding in the ED.? HR came down to about 100, BP dropped into the 90s but then came up to the 110s range.? Lactate improved to 3.8. On my exam in the ICU, the patient is fully awake, and via assistant associate professor seems to be oriented and appropriate.? She has a 2nd unit of RBCs hanging.? She has a right arm single lumen PICC line.? She looks very pale, frail, and emaciated.? Looks thoroughly nontoxic (as much as you can say that about anyone who?s emaciated like this.)? HR 106, BP 115/64, Breathing easy, Sat 92% on room air.? Temp 97.9?.? No JVD at 10?.? Chest CTA.? RRR, S1 and S2, no M or G.? Abomen is firm, slightly protuberant, and fairly tender.? No edema.? Her extremities are very thin.? There is obvious stool and blood, along with urine, in her diaz catheter (so I?m assuming that the tip of the catheter is in her bladder, not in a loop of bowel, altho that is not a certainty). REPEAT LABORATORY DATA:? Hemoglobin down to 7.2 after volume resuscitation.? Last POC was 76, follow-up lactate was down at 3.8. MICROBIOLOGY:? 2/2 sets of blood cultures reported positive at 11 hours for Gram-negative rods. IMPRESSION:? This is a 67-year-old woman with advanced and worsening widely metastatic ovarian cancer with enterovesical and enterovaginal fistula.? She?s cachectic, and at the end of life.? Any kind of invasive procedure would be inappropriate (to put it mildly).? The primary focus should be on ensuring her comfort.? Any other treatments (antibiotics, blood, ppi, etc.) are purely secondary and supportive.? At this time there is no need for consultation from GI or from surgery. Discussed the situation with Dr. Craig by telephone. 1. Advanced and worsening widely metastatic ovarian cancer. 2. Enterovesicle and enterovaginal fistula. 3. Coagulopathy.? Secondary to Eliquis.? ?Reversed? with Kcentra (such as it is). 4. Upper GI bleed.? Statistically most likely secondary to peptic ulcer disease.? Complicated by anticoagulation with Eliquis.? She was ?reversed? with Kcentra, and I wrote her for Pepcid infusion and octreotide x 24hrs.? No longer actively bleeding, as far as I can tell. 5. Severe protein calorie malnutrition.? No indication for any kind of parent eral nutrition. 6. ID. ?She was given Levaquin in the ED. ?I?ll switch her to Zosyn.? (I?m not sure whether or not antibiotics are usually prescribed for this kind of chronic fistula.? The patient was seen by Dr Pizarro on February 05 at which time she had the colovesicle fistula, and Dr. Pizarro didn?t prescribe any.? But she did recommend Zosyn for the acute colovesicle fistula in September.? A surgical consult in regard to that specific question might also have a helpful opinion.) ?? ?As far as the lactic acid goes, she?s not in septic shock, and clinically she doesn?t look septic (normal mental status, normal breathing, not hypotensive).? But she?s clearly bacteremic.? She?s had 2L of crystalloid so far, plus 2 units RBCs, plus 200 cc albumin.? Repeat lactate is pending. I spoke with the patient's sister (the only family member present at this time) and discussed what was going on. It seems to me that the sister does not understand and fully appreciate the severity and finality of the patient's condition. I explained to her in plain language that her sister is dying and that nothing we can do will change that outcome. I further told her plainly that the only choice was whether her sister dies in comfort, or suffers until she dies. I asked her to have the rest of the family come in so we can all talk. There is no need for intensive care.? She can be cared for on med-surg in a measured, noninvasive fashion.? Will sign out to the hospitalists. I ordered follow-up labs for tonight and tomorrow morning. ADDENDUM: I spoke to the patient's two sons in conference.? They understand Urdu well.? I asked them what they thought about what was going on, and I discussed her condition and treatment.? I opined to them that she was suffering greatly and that we should focus on making her comfortable.? I indicated that the outcome is certain -- she?s going to -- and the only choice we have now is whether she dies in peace and comfort, or whether she dies with pain and suffering.? One son fully grasps the practical reality of the situation and is realistic (at least according to our standards).? The other son is of the opinion that his mother staying alive is the best outcome possible, even if it means she is suffering.? There is no convincing him, bec he is completely unable to appreciate (at least in my conversations with him) that there are things worse than .? He is of the opinion that God will take her when it?s her time. ?I explained to both of them the difference between hospice -- where she would get care focused only on her pain -- versus here in the hospital, where she will get care for her pain and for her other problems, such as GI bleeding and infection.? But I explained to them we would not do any invasive procedures, including no scopes. I told the two sons that the patient will be transferred to a regular room where she will get slow, measured, noninvasive treatment, and she will not be readmitted to the ICU while I am on service.? The son who wants his mother to be kept alive at all costs insists that we do everything, including CPR.? I told him that while I am on service, she will not get CPR or life support from me.? His response was that he will make sure that she does not come to this hospital in the future. I discussed the above with AALIYAH Jerez. Time (including extensive full chart review): 180+ min [facility] Past Medical History Medical History Acute UTI Arthritis Bacteremia Diabetes DVT (deep venous thrombosis) Enterovesical fistula Hypoalbuminemia On total parenteral nutrition Osteoporosis Pelvic cancer Physical deconditioning Rectovaginal fistula Weakness Family History Family History Other No family history of coronary artery disease Surgical History Surgical History History of colon resection Hx of cholecystectomy Social History Social History Household Members: Spouse Housing: Apartment Do you presently have visiting nurse or other home services: Yes (3x/wk) Alcohol intake: never Patient Tobacco Use Status: Never used Tobacco Use of substances other than those prescribed or required for medical reasons: No Have you been hit, kicked, punched, or otherwise hurt by someone within the past year? If so, by whom?: No Do you feel safe in your current relationship?: Yes Is there a partner from a previous relationship who is making you feel unsafe now?: No Are you made to feel afraid or neglected: No Advance Directives: Yes Advance Directives Information Provided: Yes Advance Directives on File: No Advance Directives Date on File: 05/04/21 Do you have thoughts of harming others: None Do you have a plan to hurt others: No Plan Recently lost weight without trying: Yes How much weight loss: Unsure Eating poorly because of decreased appetite: Yes Nutrition screen score: 5 Nutrition Risks: Acute nausea or vomiting x1 week, Anorexia and Poor intake 0-2 5% >4 days Patient : No : No Poor oral hygiene: Yes service: No Current occupational status: unemployed and retired Meds Allergies Allergy/AdvReac Type Severity Reaction Status Date / Time Iodinated Contrast Media Allergy Severe DIFF.BREATH Verified 03/02/22 05:07 [IV Dye, Iodine Containing] ING Penicillins AdvReac Mild PASSED OUT Verified 03/02/22 05:07 Environmental Allergy Mild ITCHY Uncoded 03/02/22 05:07 EYES/RUNNY NOSE PENICILLIN G Allergy Unknown Unknown Uncoded 03/02/22 05:07 Active Medications: Current Medications Levofloxacin (Levaquin) 500 mg in 100 mls @ 100 mls/hr IV Q24H MARY Last Infusion: 03/02/22 07:21 Dose: Infused Pantoprazole Sodium 80 mg/ (Sodium Chloride) 100 mls @ 10 mls/hr IV .Q10H MARY Octreotide Acetate 500 mcg/ (Sodium Chloride) 501 mls @ 25.05 mls/hr IVCONT .Q20H [facility] Home Medications Medication Instructions Recorded Confirmed Last Taken Type fentanyl 25 mcg/hr transdermal 1 patch topical Q3D 10/02/21 03/02/22 02/02/22 History patch sennosides 8.6 mg-docusate sodium 2 tab PO DAILY PRN Constipation 10/02/21 03/02/22 Unknown History 50 mg tablet (Senna Plus) fluticasone propionate 50 1 spray intranasal DAILY 01/19/22 03/02/22 Unknown History mcg/actuation nasal spray,suspension oxybutynin chloride 10 mg 1 tab PO DAILY 01/19/22 03/02/22 Unknown History tablet,extended release 24 hr thiamine HCl (vitamin B1) 100 mg 1 tab DAILY 01/19/22 03/02/22 Unknown History tablet trazodone 50 mg tablet 50 mg PO BEDTIME insomnia 01/19/22 03/02/22 Unknown History zinc oxide-cod liver oil topical 1 ea topical TID 02/05/22 03/02/22 Unknown History ointment (Pediatric Oint (cod liver oil)) fentanyl 12 mcg/hr transdermal 1 patch topical Q3D 03/02/22 03/02/22 Unknown His tory patch melatonin 5 mg tablet 1 tab PO BEDTIME 03/02/22 03/02/22 Unknown History multivitamin with folic acid 400 1 tab PO DAILY 03/02/22 03/02/22 Unknown History mcg tablet (Daily-Beltran (with folic acid)) nitrofurantoin 1 cap DAILY 03/02/22 03/02/22 Unknown History monohydrate/macrocrystals 100 mg capsule omeprazole magnesium 10 mg oral 20 mg PO DAILY@0630 03/02/22 03/02/22 Unknown History suspension,delayed release (Prilosec) ondansetron HCl 4 mg tablet 1 tab PO Q8H PRN Nausea 03/02/22 03/02/22 Unknown History oxycodone 10 mg tablet 1 tab PO Q8H 03/02/22 03/02/22 Unknown History Physical Exam 2 Vital Signs: Vital Signs: Last Vital Signs Temp 97.9 F 03/02/22 11:00 Pulse 102 H 03/02/22 11:00 Resp 16 03/02/22 11:00 BP 115/64 03/02/22 11:00 Pulse Ox 98 03/02/22 11:00 O2 Del Method 03/02/22 11:00 O2 Flow Rate 2 03/02/22 11:00 Oxygen Flow Rate 2 03/02/22 10:43 BMI result Body Mass Index 19.6 Results Labs CBC and Chem 7: 03/02/22 12:45 03/02/22 12:45 Labs: Laboratory Results - last 24 hr 03/02/22 03/02/22 03/02/22 02:39 02:45 02:45 MCV 86.3 MCH 28.9 MCHC 33.5 RDW 21.8 H Plt Count 213 MPV 10.8 Immature Gran % (Auto) 0.7 H Neut % (Auto) 85.7 H Lymph % (Auto) 7.7 L [place] % (Auto) 5.7 Eos % (Auto) 0.1 Baso % (Auto) 0.1 Lymph # (Auto) 1.5 [place] # (Auto) 1.1 Eos # (Auto) 0.0 Baso # (Auto) 0.0 Abs Immat Gran (auto) 0.13 H Absolute Neuts (auto) 16.8 H Absolute Nucleated RBC 0.000 Nucleated RBC % (auto) 0.0 PT INR D-Dimer High Sensitivty VBG pH VBG pCO2 VBG pO2 VBG HCO3 VBG O2 Saturation VBG Base Excess Anion Gap 15 Estim Creat Clear Calc 30.9 Estimated GFR 45 POC Glucose 45 L* Random Glucose 60 Lactic Acid Lactic Acid F/U @ 2Hr Lactic Acid F/U @ 4Hr Calcium 6.7 L Magnesium 1.5 L Total Bilirubin 1.9 H Direct Bilirubin 1.6 H AST 89 H ALT 14 Alkaline Phosphatase 669 H D Troponin I High Sens B-Natriuretic Peptide Total Protein 6.6 Albumin 1.5 L Lipase 6 L Urine Color Urine Appearance Urine pH Ur Specific [place] Urine Protein Urine Glucose (UA) Urine Ketones Urine Blood Urine Nitrite Ur Leukocyte Esterase Urine RBC Urine WBC Ur Squamous Epith Cells Urine Bacteria Hyaline Casts Waxy Casts Gastric Occult Blood Stool Occult Blood COVID-19 ([facility]) COVID-19 Clin Com Blood Type Antibody Screen Crossmatch 03/02/22 03/02/22 03/02/22 02:45 02:45 02:45 MCV MCH MCHC RDW Plt Count MPV Immature Gran % (Auto) Neut % (Auto) Lymph % (Auto) [place] % (Auto) Eos % (Auto) Baso % (Auto) Lymph # (Auto) [place] # (Auto) Eos # (Auto) Baso # (Auto) Abs Immat Gran (auto) Absolute Neuts (auto) Absolute Nucleated RBC Nucleated RBC % (auto) PT 47.7 H INR 3.9 H D-Dimer High Sensitivty 2003 VBG pH VBG pCO2 VBG pO2 VBG HCO3 VBG O2 Saturation VBG Base Excess Anion Gap Estim Creat Clear Calc Estimated GFR POC Glucose Random Glucose Lactic Acid 4.5 H* Lactic Acid F/U @ 2Hr Lactic Acid F/U @ 4Hr Calcium Magnesium Total Bilirubin Direct Bilirubin AST ALT Alkaline Phosphatase Troponin I High Sens 7.3 D B-Natriuretic Peptide 118 H Total Protein Albumin Lipase Urine Color Urine Appearance Urine pH Ur Specific [place] Urine Protein Urine Glucose (UA) Urine Ketones Urine Blood Urine Nitrite Ur Leukocyte Esterase Urine RBC Urine WBC Ur Squamous Epith Cells Urine Bacteria Hyaline Casts Waxy Casts Gastric Occult Blood Stool Occult Blood COVID-19 ([facility]) COVID-Fixetude Com Blood Type Antibody Screen Crossmatch 03/02/22 03/02/22 03/02/22 02:45 02:54 02:57 MCV MCH MCHC RDW Plt Count MPV Immature Gran % (Auto) Neut % (Auto) Lymph % (Auto) [place] % (Auto) Eos % (Auto) Baso % (Auto) Lymph # (Auto) [place] # (Auto) Eos # (Auto) Baso # (Auto) Abs Immat Gran (auto) Absolute Neuts (auto) Absolute Nucleated RBC Nucleated RBC % (auto) PT INR D-Dimer High Sensitivty VBG pH 7.55 H VBG pCO2 31 VBG pO2 95 VBG HCO3 27 H VBG O2 Saturation 98.0 VBG Base Excess 5.6 Anion Gap Estim Creat Clear Calc Estimated GFR POC Glucose Random Glucose Lactic Acid Lactic Acid F/U @ 2Hr Lactic Acid F/U @ 4Hr Calcium Magnesium Total Bilirubin Direct Bilirubin AST ALT Alkaline Phosphatase Troponin I High Sens B-Natriuretic Peptide Total Protein Albumin Lipase Urine Color Urine Appearance Urine pH Ur Specific [place] Urine Protein Urine Glucose (UA) Urine Ketones Urine Blood Urine Nitrite Ur Leukocyte Esterase Urine RBC Urine WBC Ur Squamous Epith Cells Urine Bacteria Hyaline Casts Waxy Casts Gastric Occult Blood Stool Occult Blood COVID-19 ([facility]) Negative COVID-Fixetude Com See Note Blood Type O Positive Antibody Screen NEGATIVE Crossmatch See Detail 03/02/22 03/02/22 03/02/22 02:59 03:44 04:30 MCV MCH MCHC RDW Plt Count MPV Immature Gran % (Auto) Neut % (Auto) Lymph % (Auto) [place] % (Auto) Eos % (Auto) Baso % (Auto) Lymph # (Auto) [place] # (Auto) Eos # (Auto) Baso # (Auto) Abs Immat Gran (auto) Absolute Neuts (auto) Absolute Nucleated RBC Nucleated RBC % (auto) PT INR D-Dimer High Sensitivty VBG pH VBG pCO2 VBG pO2 VBG HCO3 VBG O2 Saturation VBG Base Excess Anion Gap Estim Creat Clear Calc Estimated GFR POC Glucose 118 H Random Glucose Lactic Acid Lactic Acid F/U @ 2Hr Lactic Acid F/U @ 4Hr Calcium Magnesium Total Bilirubin Direct Bilirubin AST ALT Alkaline Phosphatase Troponin I High Sens B-Natriuretic Peptide Total Protein Albumin Lipase Urine Color RED A Urine Appearance TURBID Urine pH 8.5 H Ur Specific [place] <= 1.005 Urine Protein 3+ H Urine Glucose (UA) 250 H Urine Ketones 40 Urine Blood 3+ H Urine Nitrite POS H Ur Leukocyte Esterase 3+ H Urine RBC TNTC H Urine WBC 76-150 H Ur Squamous Epith Cells NONE Urine Bacteria 4+ Hyaline Casts 0-2 Waxy Casts 0-2 Gastric Occult Blood POSITIVE H Stool Occult Blood COVID-19 ([facility]) COVID-19 Clin Com Blood Type Antibody Screen Crossmatch 03/02/22 03/02/22 03/02/22 04:30 05:04 06:56 MCV MCH MCHC RDW Plt Count MPV Immature Gran % (Auto) Neut % (Auto) Lymph % (Auto) [place] % (Auto) Eos % (Auto) Baso % (Auto) Lymph # (Auto) [place] # (Auto) Eos # (Auto) Baso # (Auto) Abs Immat Gran (auto) Absolute Neuts (auto) Absolute Nucleated RBC Nucleated RBC % (auto) PT INR D-Dimer High Sensitivty VBG pH VBG pCO2 VBG pO2 VBG HCO3 VBG O2 Saturation VBG Base Excess Anion Gap Estim Creat Clear Calc Estimated GFR POC Glucose 76 Random Glucose Lactic Acid Lactic Acid F/U @ 2Hr 5.0 H* Lactic Acid F/U @ 4Hr Calcium Magnesium Total Bilirubin Direct Bilirubin AST ALT Alkaline Phosphatase Troponin I High Sens B-Natriuretic Peptide Total Protein Albumin Lipase Urine Color Urine Appearance Urine pH Ur Specific [place] Urine Protein Urine Glucose (UA) Urine Ketones Urine Blood Urine Nitrite Ur Leukocyte Esterase Urine RBC Urine WBC Ur Squamous Epith Cells Urine Bacteria Hyaline Casts Waxy Casts Gastric Occult Blood Stool Occult Blood POSITIVE COVID-19 ([facility]) COVID-19 Clin Com Blood Type Antibody Screen Crossmatch 03/02/22 07:43 MCV MCH MCHC RDW Plt Count MPV Immature Gran % (Auto) Neut % (Auto) Lymph % (Auto) [place] % (Auto) Eos % (Auto) Baso % (Auto) Lymph # (Auto) [place] # (Auto) Eos # (Auto) Baso # (Auto) Abs Immat Gran (auto) Absolute Neuts (auto) Absolute Nucleated RBC Nucleated RBC % (auto) PT INR D-Dimer High Sensitivty VBG pH VBG pCO2 VBG pO2 VBG HCO3 VBG O2 Saturation VBG Base Excess Anion Gap Estim Creat Clear Calc Estimated GFR POC Glucose Random Glucose Lactic Acid Lactic Acid F/U @ 2Hr Lactic Acid F/U @ 4Hr 3.8 H* Calcium Magnesium Total Bilirubin Direct Bilirubin AST ALT Alkaline Phosphatase Troponin I High Sens B-Natriuretic Peptide Total Protein Albumin Lipase Urine Color Urine Appearance Urine pH Ur Specific [place] Urine Protein Urine Glucose (UA) Urine Ketones Urine Blood Urine Nitrite Ur Leukocyte Esterase Urine RBC Urine WBC Ur Squamous Epith Cells Urine Bacteria Hyaline Casts Waxy Casts Gastric Occult Blood Stool Occult Blood COVID-19 ([facility]) COVID-19 Clin Com Blood Type Antibody Screen Crossmatch Imaging Radiologist's Impressions: Impressions Abdomen/Pelvis CT 03/02/22 03:14 IMPRESSION: 1. Several dilated small bowel loops in the left abdomen, concerning for obstruction. Discrete transition point is not identified. 2. Suboptimal assessment of the pelvis without intravenous contrast. However, there is suspected increasing soft tissue density suspicious for worsening malignancy. 3. Moderate bilateral hydroureteronephrosis, similar on the left and increased in the right compared to prior. Appearance is concerning for sequelae of mass effect on the distal ureters. 4. Extensive hepatic masses redemonstrated. 5. Redemonstrated retroperitoneal and bilateral inguinal lymphadenopathy. 6. Small amount of free fluid. 7. Partially visualized small pleural effusions and adjacent bibasilar opacities favoring atelectasis. Chest X-Ray 03/02/22 03:15 IMPRESSION: Small bilateral pleural effusions with adjacent bibasilar opacities, favored to at least partially be due to atelectasis. Fissural extension of fluid is suspected on the right. Known bilateral lung nodules are not well demonstrated radiographically.
--- NOTE | 2022-03-02 11:44 | PC.NURSE ---
On arrival to unit pt cleaned of bloody stool and a diaz catheter inserted with brown-red output. at bedside to discuss plan of care and t prognosis with sister. Son is on his way from [place] and plans to include him in discussion to possibly make patietn comfort measures. At this time pt reports only mild pain to lower back and abdomen. Ubnit of blood almost completed at this time. Protonix and octreotide to by started but delay r/t access. Plan for blood draw after blood transfusion and to transfer pt to hospitalist service.
[2022-03-02] MEDS: Pantoprazole Sodium 80 MG in 0.9 % Sodium Chloride 80 ML 10 MG IV ×2 (11:54→21:41)
[2022-03-02] MEDS: Lactated Ringers 1,000 ML 40 ML IVCONT ×2 (12:31→21:03)
[2022-03-02 12:56] LABS: Hematocrit 28.7 % (37.0-47.0); Hemoglobin 9.6 g/dl (12.0-16.0); Mean Corpuscular HGB Conc 33.4 g/dl (31.0-35.0); Mean Corpuscular Hemoglobin 28.9 pg (27.0-33.0); Mean Corpuscular Volume 86.4 fL (80.0-98.0); Mean Platelet Volume 10.9 fL (9.4-12.3); Platelet Count 131 X10*3/uL (160-400); Red Blood Count 3.32 X10*6/uL (4.20-5.50); Red Cell Distribution Width 19.5 % (11.0-16.0); White Blood Count 14.8 X10*3/uL (4.8-10.8)
[2022-03-02 13:01] LABS: INTERNATIONAL NORM RATIO 2.4 (0.9-1.1); Prothrombin Time 28.1 SEC (10.0-13.1)
[2022-03-02 13:12] LABS: Albumin Level 2.7 g/dL (3.5-5.0); Anion Gap 15 (12-20); Blood Urea Nitrogen 22 mg/dL (9-16); Calcium 6.8 mg/dL (8.4-10.2); Carbon Dioxide 21 mmol/L (22-29); Chloride 105 mmol/L (96-108); Creatinine Clr Calc Pharmacy 35.3; Estimated Glomerular Filt Rate 49; Glucose Random 61 mg/dL (60-115); Phosphorus 4.9 mg/dL (2.7-4.5); Potassium 4.5 mmol/L (3.3-5.1); Sodium 136 mmol/L (135-145)
[2022-03-02] MEDS: Octreotide Acetate 500 MCG in 0.9 % Sodium Chloride 500 ML 25.05 MCG IVCONT (13:23)
[2022-03-02 13:24] LABS: Reflex Lactate? No addnl Lactic Acid
[2022-03-02 13:24] LABS: Cancel Lactic Acid Canceled
[2022-03-02] MEDS: HYDROmorphone HCl 0.5 MG/0.5 ML SYRINGE IVPUSH ×3 (14:24→21:58)
[2022-03-02] MEDS: Piperacillin Sodium/Tazobactam 3.375 GM in 0.9 % Sodium Chloride 50 ML IV ×2 (14:24→20:45)
--- NOTE | 2022-03-02 16:20 | PM.EVENT ---
Event Note Date of Service: 03/02/22 Event Note: Patient was downgraded from the ICU this afternoon with multiple acute issues as well as underlying metastatic cancer. I spoke with Iris with the assistance of a programmer analyst health it and her nurse Karina present and discussed goals of care. We filled out a MOLST form indicating her desire to be a do not resuscitate. She was awake, alert, oriented and able to make this decision herself. She verbalized that she would not want CPR and she would not want to be put on a ventilator. Her was then involved in the conversation and he understands and respects her wishes to be a DNR.
--- NOTE | 2022-03-02 16:21 | PC.NURSE ---
Clarification needed regarding code status of patient. AALIYAH Townsedn notified who came to bedside and with an lang interpreter completed a MOLST form. Pt is alert and oriented x3 at this time and a hospital lang interpreter was used during the MOLST discussion. kosher dietary service manager at bedside with lang interpreter to help patient fill out a HCP form. Family at this time is very involved in decision making thought has differing opinions regarding patient's care. At this time the HCP remains Abdoul as documented. This RN, Cary FISCHER, and manager universal spoke in depth reading the meaning of a MOLST and healthcare proxy and when it can be evoked. At this time pt's code status is DNR/DNI according to the patient's wishes and documented MOLST form.
[2022-03-02] MEDS: Lactated Ringers 1,000 ML 999 ML IV (20:30)
[2022-03-02 20:31] LABS: MANUAL DIFF FLAG NO
[2022-03-02 20:35] LABS: Basophils Absolute Auto 0.1 X10*3/uL (0.0-0.2); Basophils Percent Auto 0.3 % (0-2); Eosinophils Percent Auto 0.1 % (0-4); Hematocrit 28.4 % (37.0-47.0); Hematocrit 28.6 % (37.0-47.0); Hemoglobin 9.7 g/dl (12.0-16.0); Hemoglobin 9.8 g/dl (12.0-16.0); Imm Gran Abs Auto 0.11 X10*3/uL (0.00-0.03); Imm Gran Pct Auto 0.7 % (0.0-0.4); Lymphocytes Absolute Auto 1.1 X10*3/uL (1.2-4.9); Lymphocytes Percent Auto 7.4 % (20-40); Mean Corpuscular HGB Conc 34.3 g/dl (31.0-35.0); Mean Corpuscular Hemoglobin 29.5 pg (27.0-33.0); Mean Corpuscular Volume 86.1 fL (80.0-98.0); Mean Platelet Volume 10.4 fL (9.4-12.3); Monocytes Absolute Auto 1.2 X10*3/uL (0.1-1.2); Monocytes Percent Auto 7.7 % (2-11); Neutrophils Absolute Auto 12.4 x10*3/uL (2.0-8.3); Neutrophils Percent Auto 83.8 % (45-73); Platelet Count 129 X10*3/uL (160-400); Red Blood Count 3.32 X10*6/uL (4.20-5.50); Red Cell Distribution Width 19.9 % (11.0-16.0); White Blood Count 14.8 X10*3/uL (4.8-10.8)
[2022-03-02 20:46] LABS: Lactic Acid 1.9 mmol/L (0.5-2.0)
[2022-03-02 20:56] LABS: Anion Gap 16 (12-20); Blood Urea Nitrogen 23 mg/dL (9-16); Calcium 6.5 mg/dL (8.4-10.2); Carbon Dioxide 19 mmol/L (22-29); Chloride 106 mmol/L (96-108); Creatinine Clr Calc Pharmacy 32.6; Estimated Glomerular Filt Rate 45; Glucose Random 40 mg/dL (60-115); Potassium 4.3 mmol/L (3.3-5.1); Sodium 137 mmol/L (135-145)
--- NOTE | 2022-03-02 22:09 | P.PNCC_ITS ---
Subjective Subjective Date of Service: 03/02/22 Interval History: Clinical Precedent to this date: ?Patient has underlying history of ovarian metastatic cancer who has been treated with chemotherapy up until 2019. ?Patient had been on Eliquis for a recently diagnosed DVT in the setting of metastatic cancer. ?She had been admitted earlier to the ICU as the patient presented to the ER vomiting dark contents and passing blood in her stool.? She had been hypotensive in the ER.? Patient received Kcentra, ceftriaxone, 1 unit of packed red blood cells and IV fluids, O2 tried and PPI but given her poor prognosis, cachexia among others, the patient was made DNR DNI and deemed to be stable enough at the time to be transferred to the floor. Subjective:? Today pt at 19:45, I noted on the monitor the patient was having a continues heart rate in the 150s with a blood pressure around 107 systolic.? The patient was about to be transferred to the floor, this point I have reached out to Dr. Dela Cruz and notified him that I do not think the patient should be transfer even though she is DNR DNI, she appears to be bleeding as blood is noted on sheets of her bed, the patient denies any pain, feels lightheaded. Focused Review of systems:? As above otherwise denies dizziness, nausea vomiting, abdominal pain, chest pain, shortness a breath. Lower abdominal pain is a new manifestation to me, localized in the lower abdominal area, constant and ongoing, stabbing at times, 9/10 with no radiation. The medication given to her is barely taking the edge of. Objective VS: ?110/55, 150, 18, 94% General:? Alert oriented x3, no acute distress, cachectic Skin:? Intact, no lesions or rash, fragile and dry. Cardiac:? Clear S1-S2 tachycardic 150 beats per minute, no murmurs rubs or gallops. Pulmonary:? Clear to auscultation, no wheezes, rales or rhonchi. Abdomen:? Protuberant, positive bowel sounds in all 4 quadrants.? Soft; it is e vident that the patient is bleeding, she has Musculoskeletal:? Moving all 4 extremities upon request a major joints, no calf tenderness, no edema. Neurologic:? As above, no focal deficits. Vascular:? 2+ pulses upper and lower extremities distally. ? SIGNIFICANT LABORATORY DATA:? Reviewed from earlier, last H&H is 9.6 and 28.7, platelets 131 ASSESSMENT AND PLAN: 1. Continuous upper GI bleed 2. Reactive tachycardia rule out hemorrhagic shock 3. Chronic can advance metastatic ovarian cancer 4. Hypoglycemia At this point, we will hold off on transferring the patient out of the ICU unless we absolutely need to, laboratories and lactic acid will be repeated, lactated Ringer's at bolus will be given, if needed will give her transfusion. Upon discussion with Dr. Dela Cruz in further review of the chart, the patient has filled out a MOLST form with the internal medicine physician assistant professor nurse education and is her wishes not to receive any type of procedures including no endoscopy or colonoscopy, just medical treatment and transfusions as needed. Will monitor her H&H, I believe the patient is in a great deal of pain. She has been receiving Dilaudid 0.5 mg every 1 hour, I will increase this to 1 mg every hour as needed and if necessary start her on a RECORDS MANAGEMENT DIRECTOR pump. A critical blood sugar of 40 was called from the lab, 1 amp of D50 ordered. All of the above has been discussed with the hospitalist Dr. Edawrd; when needed will transfer the patient otherwise early in the morning. Clinical update 03/03/2022 at 01:15 Patient is hemodynamically stable with exception of mild tachycardia 105-110 beats per minute. Heart rate is 1 0 6/56, no more episodes of bleeding. She did not receive transfusion, rather she got IV fluids and her H&H is currently better at 10.1 and 29.6 respectively. The patient is now stable for transfer to [facility], case discussed with the internal medicine physician. Code status remains DNR DNI Critical care time used for critical evaluation of this patient, diagnosis, treatment and coordination of care, review her records and documentation TOTAL CRITICAL CARE TIME 60 MIN Patient's care was discussed in detail with Dr. Dela Cruz.? He is aware of all the above as well as the plan of care for this patient.? Critical Care Time (minutes): 60 Physical Exam Vital Signs: Vital Signs: Last Vital Signs Temp 99 F 03/02/22 21:00 Pulse 106 H 03/02/22 21:00 Resp 14 03/02/22 21:00 BP 107/51 L 03/02/22 21:00 Pulse Ox 94 03/02/22 21:00 O2 Del Method 03/02/22 21:00 O2 Flow Rate 2 03/02/22 21:00 Oxygen Flow Rate 2 03/02/22 10:43 BMI result Body Mass Index 19.6 Objective Data Labs CBC & Chem 7: 03/02/22 23:50 03/02/22 20:12 Labs: Laboratory Results - last 24 hr 03/02/22 03/02/22 03/02/22 02:39 02:45 02:45 WBC 19.6 H RBC 2.84 L Hgb 8.2 L Hct 24.5 L MCV 86.3 MCH 28.9 MCHC 33.5 RDW 21.8 H Plt Count 213 MPV 10.8 Immature Gran % (Auto) 0.7 H Neut % (Auto) 85.7 H Lymph % (Auto) 7.[address] [place] % (Auto) 5.7 Eos % (Auto) 0.1 Baso % (Auto) 0.1 Lymph # (Auto) 1.5 [place] # (Auto) 1.1 Eos # (Auto) 0.0 Baso # (Auto) 0.0 Abs Immat Gran (auto) 0.13 H Absolute Neuts (auto) 16.8 H Absolute Nucleated RBC 0.000 Nucleated RBC % (auto) 0.0 PT INR D-Dimer High Sensitivty VBG pH VBG pCO2 VBG pO2 VBG HCO3 VBG O2 Saturation VBG Base Excess Sodium 135 Potassium 4.9 D Chloride 101 Carbon Dioxide 24 Anion Gap 15 BUN 23 H D Creatinine 1.20 Estim Creat Clear Calc 30.9 Estimated GFR 45 POC Glucose 45 L* Random Glucose 60 Lactic Acid Lactic Acid F/U @ 2Hr Lactic Acid F/U @ 4Hr Calcium 6.7 L Phosphorus Magnesium 1.5 L Total Bilirubin 1.9 H Direct Bilirubin 1.6 H AST 89 H ALT 14 Alkaline Phosphatase 669 H D Troponin I High Sens B-Natriuretic Peptide Total Protein 6.6 Albumin 1.5 L Lipase 6 L Urine Color Urine Appearance Urine pH Ur Specific [place] Urine Protein Urine Glucose (UA) Urine Ketones Urine Blood Urine Nitrite Ur Leukocyte Esterase Urine RBC Urine WBC Ur Squamous Epith Cells Urine Bacteria Hyaline Casts Waxy Casts Gastric Occult Blood Stool Occult Blood COVID-19 (CULLEN) COVID-19 Clin Com Blood Type Antibody Screen Crossmatch 03/02/22 03/02/22 03/02/22 02:45 02:45 02:45 WBC RBC Hgb Hct MCV MCH MCHC RDW Plt Count MPV Immature Gran % (Auto) Neut % (Auto) Lymph % (Auto) [place] % (Auto) Eos % (Auto) Baso % (Auto) Lymph # (Auto) [place] # (Auto) Eos # (Auto) Baso # (Auto) Abs Immat Gran (auto) Absolute Neuts (auto) Absolute Nucleated RBC Nucleated RBC % (auto) PT 47.7 H INR 3.9 H D-Dimer High Sensitivty 2003 VBG pH VBG pCO2 VBG pO2 VBG HCO3 VBG O2 Saturation VBG Base Excess Sodium Potassium Chloride Carbon Dioxide Anion Gap BUN Creatinine Estim Creat Clear Calc Estimated GFR POC Glucose Random Glucose Lactic Acid 4.5 H* Lactic Acid F/U @ 2Hr Lactic Acid F/U @ 4Hr Calcium Phosphorus Magnesium Total Bilirubin Direct Bilirubin AST ALT Alkaline Phosphatase Troponin I High Sens 7.3 D B-Natriuretic Peptide 118 H Total Protein Albumin Lipase Urine Color Urine Appearance Urine pH Ur Specific [place] Urine Protein Urine Glucose (UA) Urine Ketones Urine Blood Urine Nitrite Ur Leukocyte Esterase Urine RBC Urine WBC Ur Squamous Epith Cells Urine Bacteria Hyaline Casts Waxy Casts Gastric Occult Blood Stool Occult Blood COVID-19 (CULLEN) COVID-19 Clin Com Blood Type Antibody Screen Crossmatch 03/02/22 03/02/22 03/02/22 02:45 02:54 02:57 WBC RBC Hgb Hct MCV MCH MCHC RDW Plt Count MPV Immature Gran % (Auto) Neut % (Auto) Lymph % (Auto) [place] % (Auto) Eos % (Auto) Baso % (Auto) Lymph # (Auto) [place] # (Auto) Eos # (Auto) Baso # (Auto) Abs Immat Gran (auto) Absolute Neuts (auto) Absolute Nucleated RBC Nucleated RBC % (auto) PT INR D-Dimer High Sensitivty VBG pH 7.55 H VBG pCO2 31 VBG pO2 95 VBG HCO3 27 H VBG O2 Saturation 98.0 VBG Base Excess 5.6 Sodium Potassium Chloride Carbon Dioxide Anion Gap BUN Creatinine Estim Creat Clear Calc Estimated GFR POC Glucose Random Glucose Lactic Acid Lactic Acid F/U @ 2Hr Lactic Acid F/U @ 4Hr Calcium Phosphorus Magnesium Total Bilirubin Direct Bilirubin AST ALT Alkaline Phosphatase Troponin I High Sens B-Natriuretic Peptide Total Protein Albumin Lipase Urine Color Urine Appearance Urine pH Ur Specific [place] Urine Protein Urine Glucose (UA) Urine Ketones Urine Blood Urine Nitrite Ur Leukocyte Esterase Urine RBC Urine WBC Ur Squamous Epith Cells Urine Bacteria Hyaline Casts Waxy Casts Gastric Occult Blood Stool Occult Blood COVID-19 (CULLEN) Negative COVID-19 Clin Com See Note Blood Type O Positive Antibody Screen NEGATIVE Crossmatch See Detail 03/02/22 03/02/22 03/02/22 02:59 03:44 04:30 WBC RBC Hgb Hct MCV MCH MCHC RDW Plt Count MPV Immature Gran % (Auto) Neut % (Auto) Lymph % (Auto) [place] % (Auto) Eos % (Auto) Baso % (Auto) Lymph # (Auto) [place] # (Auto) Eos # (Auto) Baso # (Auto) Abs Immat Gran (auto) Absolute Neuts (auto) Absolute Nucleated RBC Nucleated RBC % (auto) PT INR D-Dimer High Sensitivty VBG pH VBG pCO2 VBG pO2 VBG HCO3 VBG O2 Saturation VBG Base Excess Sodium Potassium Chloride Carbon Dioxide Anion Gap BUN Creatinine Estim Creat Clear Calc Estimated GFR POC Glucose 118 H Random Glucose Lactic Acid Lactic Acid F/U @ 2Hr Lactic Acid F/U @ 4Hr Calcium Phosphorus Magnesium Total Bilirubin Direct Bilirubin AST ALT Alkaline Phosphatase Troponin I High Sens B-Natriuretic Peptide Total Protein Albumin Lipase Urine Color RED A Urine Appearance TURBID Urine pH 8.5 H Ur Specific [place] <= 1.005 Urine Protein 3+ H Urine Glucose (UA) 250 H Urine Ketones 40 Urine Blood 3+ H Urine Nitrite POS H Ur Leukocyte Esterase 3+ H Urine RBC TNTC H Urine WBC 76-150 H Ur Squamous Epith Cells NONE Urine Bacteria 4+ Hyaline Casts 0-2 Waxy Casts 0-2 Gastric Occult Blood POSITIVE H Stool Occult Blood COVID-19 (CULLEN) COVID-19 Clin Com Blood Type Antibody Screen Crossmatch 03/02/22 03/02/22 03/02/22 04:30 05:04 05:04 WBC RBC Hgb 7.2 L Hct 21.7 L MCV MCH MCHC RDW Plt Count MPV Immature Gran % (Auto) Neut % (Auto) Lymph % (Auto) [place] % (Auto) Eos % (Auto) Baso % (Auto) Lymph # (Auto) [place] # (Auto) Eos # (Auto) Baso # (Auto) Abs Immat Gran (auto) Absolute Neuts (auto) Absolute Nucleated RBC Nucleated RBC % (auto) PT INR D-Dimer High Sensitivty VBG pH VBG pCO2 VBG pO2 VBG HCO3 VBG O2 Saturation VBG Base Excess Sodium Potassium Chloride Carbon Dioxide Anion Gap BUN Creatinine Estim Creat Clear Calc Estimated GFR POC Glucose Random Glucose Lactic Acid Lactic Acid F/U @ 2Hr 5.0 H* Lactic Acid F/U @ 4Hr Calcium Phosphorus Magnesium Total Bilirubin Direct Bilirubin AST ALT Alkaline Phosphatase Troponin I High Sens B-Natriuretic Peptide Total Protein Albumin Lipase Urine Color Urine Appearance Urine pH Ur Specific [place] Urine Protein Urine Glucose (UA) Urine Ketones Urine Blood Urine Nitrite Ur Leukocyte Esterase Urine RBC Urine WBC Ur Squamous Epith Cells Urine Bacteria Hyaline Casts Waxy Casts Gastric Occult Blood Stool Occult Blood POSITIVE COVID-19 (CULLEN) COVID-19 Polimax Blood Type Antibody Screen Crossmatch 03/02/22 03/02/22 03/02/22 06:56 07:43 12:45 WBC 14.8 H RBC 3.32 L Hgb 9.6 L D Hct 28.7 L D MCV 86.4 MCH 28.9 MCHC 33.4 RDW 19.5 H Plt Count 131 L D MPV 10.9 Immature Gran % (Auto) Neut % (Auto) Lymph % (Auto) [place] % (Auto) Eos % (Auto) Baso % (Auto) Lymph # (Auto) [place] # (Auto) Eos # (Auto) Baso # (Auto) Abs Immat Gran (auto) Absolute Neuts (auto) Absolute Nucleated RBC 0.000 Nucleated RBC % (auto) 0.0 PT INR D-Dimer High Sensitivty VBG pH VBG pCO2 VBG pO2 VBG HCO3 VBG O2 Saturation VBG Base Excess Sodium Potassium Chloride Carbon Dioxide Anion Gap BUN Creatinine Estim Creat Clear Calc Estimated GFR POC Glucose 76 Random Glucose Lactic Acid Lactic Acid F/U @ 2Hr Lactic Acid F/U @ 4Hr 3.8 H* Calcium Phosphorus Magnesium Total Bilirubin Direct Bilirubin AST ALT Alkaline Phosphatase Troponin I High Sens B-Natriuretic Peptide Total Protein Albumin Lipase Urine Color Urine Appearance Urine pH Ur Specific [place] Urine Protein Urine Glucose (UA) Urine Ketones Urine Blood Urine Nitrite Ur Leukocyte Esterase Urine RBC Urine WBC Ur Squamous Epith Cells Urine Bacteria Hyaline Casts Waxy Casts Gastric Occult Blood Stool Occult Blood COVID-19 (CULLEN) COVID-19 Polimax Blood Type Antibody Screen Crossmatch 03/02/22 03/02/2203/02/22 12:45 12:45 12:45 WBC RBC Hgb Hct MCV MCH MCHC RDW Plt Count MPV Immature Gran % (Auto) Neut % (Auto) Lymph % (Auto) [place] % (Auto) Eos % (Auto) Baso % (Auto) Lymph # (Auto) [place] # (Auto) Eos # (Auto) Baso # (Auto) Abs Immat Gran (auto) Absolute Neuts (auto) Absolute Nucleated RBC Nucleated RBC % (auto) PT 28.1 H INR 2.4 H D-Dimer High Sensitivty VBG pH VBG pCO2 VBG pO2 VBG HCO3 VBG O2 Saturation VBG Base Excess Sodium 136 Potassium 4.5 Chloride 105 Carbon Dioxide 21 L Anion Gap 15 BUN 22 H Creatinine 1.11 Estim Creat Clear Calc 35.3 Estimated GFR 49 POC Glucose Random Glucose 61 Lactic Acid 3.0 H* Lactic Acid F/U @ 2Hr Lactic Acid F/U @ 4Hr Calcium 6.8 L Phosphorus 4.9 H Magnesium 2.0 Total Bilirubin Direct Bilirubin AST ALT Alkaline Phosphatase Troponin I High Sens B-Natriuretic Peptide Total Protein Albumin 2.7 L D Lipase Urine Color Urine Appearance Urine pH Ur Specific [place] Urine Protein Urine Glucose (UA) Urine Ketones Urine Blood Urine Nitrite Ur Leukocyte Esterase Urine RBC Urine WBC Ur Squamous Epith Cells Urine Bacteria Hyaline Casts Waxy Casts Gastric Occult Blood Stool Occult Blood COVID-19 (CULLEN) COVID-19 Clin Com Blood Type Antibody Screen Crossmatch 03/02/22 03/02/22 03/02/22 20:12 20:12 20:12 WBC 14.8 H RBC 3.32 L Hgb 9.7 L 9.8 L Hct 28.4 L 28.6 L MCV 86.1 MCH 29.5 MCHC 34.3 RDW 19.9 H Plt Count 129 L MPV 10.4 Immature Gran % (Auto) 0.7 H Neut % (Auto) 83.8 H Lymph % (Auto) 7.[address] [place] % (Auto) 7.7 Eos % (Auto) 0.1 Baso % (Auto) 0.3 Lymph # (Auto) 1.[address] [place] # (Auto) 1.2 Eos # (Auto) 0.0 Baso # (Auto) 0.1 Abs Immat Gran (auto) 0.11 H Absolute Neuts (auto) 12.4 H Absolute Nucleated RBC 0.000 Nucleated RBC % (auto) 0.0 PT INR D-Dimer High Sensitivty VBG pH VBG pCO2 VBG pO2 VBG HCO3 VBG O2 Saturation VBG Base Excess Sodium Potassium Chloride Carbon Dioxide Anion Gap BUN Creatinine Estim Creat Clear Calc Estimated GFR POC Glucose Random Glucose Lactic Acid 1.9 Lactic Acid F/U @ 2Hr Lactic Acid F/U @ 4Hr Calcium Phosphorus Magnesium Total Bilirubin Direct Bilirubin AST ALT Alkaline Phosphatase Troponin I High Sens B-Natriuretic Peptide Total Protein Albumin Lipase Urine Color Urine Appearance Urine pH Ur Specific [place] Urine Protein Urine Glucose (UA) Urine Ketones Urine Blood Urine Nitrite Ur Leukocyte Esterase Urine RBC Urine WBC Ur Squamous Epith Cells Urine Bacteria Hyaline Casts Waxy Casts Gastric Occult Blood Stool Occult Blood COVID-19 (CULLEN) COVID-19 Polimax Blood Type Antibody Screen Crossmatch 03/02/22 20:12 WBC RBC Hgb Hct MCV MCH MCHC RDW Plt Count MPV Immature Gran % (Auto) Neut % (Auto) Lymph % (Auto) [place] % (Auto) Eos % (Auto) Baso % (Auto) Lymph # (Auto) [place] # (Auto) Eos # (Auto) Baso # (Auto) Abs Immat Gran (auto) Absolute Neuts (auto) Absolute Nucleated RBC Nucleated RBC % (auto) PT INR D-Dimer High Sensitivty VBG pH VBG pCO2 VBG pO2 VBG HCO3 VBG O2 Saturation VBG Base Excess Sodium 137 Potassium 4.3 Chloride 106 Carbon Dioxide 19 L Anion Gap 16 BUN 23 H Creatinine 1.20 Estim Creat Clear Calc 32.6 Estimated GFR 45 POC Glucose Random Glucose 40 L* Lactic Acid Lactic Acid F/U @ 2Hr Lactic Acid F/U @ 4Hr Calcium 6.5 L Phosphorus Magnesium Total Bilirubin Direct Bilirubin AST ALT Alkaline Phosphatase Troponin I High Sens B-Natriuretic Peptide Total Protein Albumin Lipase Urine Color Urine Appearance Urine pH Ur Specific [place] Urine Protein Urine Glucose (UA) Urine Ketones Urine Blood Urine Nitrite Ur Leukocyte Esterase Urine RBC Urine WBC Ur Squamous Epith Cells Urine Bacteria Hyaline Casts Waxy Casts Gastric Occult Blood Stool Occult Blood COVID-19 (CULLEN) COVID-19 Aidin Com Blood Type Antibody Screen Crossmatch Microbiology Microbiology Results: Microbiology 03/02/22 02:48 Blood - Venous Blood Culture - Preliminary Prelim: GNR Gram Stain only 03/02/22 02:45 Blood - Venous Blood Culture - Preliminary Prelim: GNR Gram Stain only Quality Stroke Does the patient have a stroke diagnosis?: No VTE Prior VTE?: Yes VTE Risk Level:: Medical - moderate - high VTE Device Contraindication: N/A - Device Ordered VTE Drug Contraindication: Treatment Not Indicated
[2022-03-02 22:28] LABS: Glucose, Whole Blood 92 mg/dL (60-115)
[2022-03-02] MEDS: Dextrose 50 % 25 GM/50 ML SYRINGE IVPUSH (22:41)
[2022-03-02 23:58] LABS: Hematocrit 29.6 % (37.0-47.0); Hemoglobin 10.1 g/dl (12.0-16.0)
[2022-03-03] VITALS (10 sets, daily range): BP systolic 98–112; BP diastolic 52–67; PULSE 99–149; RESP 12–20; TEMP 36.1–37.2; O2SAT 92–97
[2022-03-03] MEDS: Piperacillin Sodium/Tazobactam 3.375 GM in 0.9 % Sodium Chloride 50 ML IV ×4 (02:53→20:37)
[2022-03-03 06:46] LABS: Hematocrit 31.1 % (37.0-47.0); Hemoglobin 10.7 g/dl (12.0-16.0); Mean Corpuscular HGB Conc 34.4 g/dl (31.0-35.0); Mean Corpuscular Hemoglobin 29.7 pg (27.0-33.0); Mean Corpuscular Volume 86.4 fL (80.0-98.0); Mean Platelet Volume 11.1 fL (9.4-12.3); Platelet Count 116 X10*3/uL (160-400); Red Cell Distribution Width 20.1 % (11.0-16.0); White Blood Count 14.6 X10*3/uL (4.8-10.8)
[2022-03-03 07:21] LABS: Lactic Acid 2.2 mmol/L (0.5-2.0)
[2022-03-03 07:33] LABS: Alanine Aminotransferase 11 U/L (0-31); Albumin Level 2.1 g/dL (3.5-5.0); Alkaline Phosphatase 630 U/L (39-117); Anion Gap 15 (12-20); Aspartate Amino Transferase 72 U/L (5-31); Bilirubin Total 3.4 mg/dL (0.0-1.0); Blood Urea Nitrogen 22 mg/dL (9-16); Calcium 6.6 mg/dL (8.4-10.2); Carbon Dioxide 19 mmol/L (22-29); Chloride 109 mmol/L (96-108); Creatinine Clr Calc Pharmacy 32.1; Estimated Glomerular Filt Rate 44; Glucose Random 44 mg/dL (60-115); Magnesium 1.8 mg/dL (1.6-2.6); Phosphorus 3.8 mg/dL (2.7-4.5); Sodium 139 mmol/L (135-145); Total Protein 6.1 g/dL (6.5-8.0)
[2022-03-03 07:39] LABS: Glucose, Whole Blood 37 mg/dL (60-115)
[2022-03-03] MEDS: Dextrose 50 % 25 GM/50 ML SYRINGE IVPUSH (07:53)
[2022-03-03] MEDS: Dextrose 5 % and 0.9 % NaCl 1,000 ML 80 ML IVCONT ×2 (07:53→20:36)
--- NOTE | 2022-03-03 08:01 | MHC.CM.PN ---
Per documentation, Patient completed a MOLST yesterday and her wishes are to be a DNR, no CPR, no vent. A HCP was completed on 10/06/21, naming Abdoul (Son) @ [phone] as the primary HCP/Agent and Felicia (Daughter) @ [phone] as the Alternate HCP/Agent.CM will await instruction from MD as to whether or not Hospice/GIP will be considered. CM will follow.
[2022-03-03 08:21] LABS: Glucose, Whole Blood 139 mg/dL (60-115)
--- NOTE | 2022-03-03 08:28 | MHC.CM.PN ---
Late Entry for 03/02: Met with pt, her spouse and two sons, Cooper and Abdoul (HCP) at different times during the day to review d/c planning needs and to assist with family conflict re: goal of care. Pt resides with spouse and has immense family support. All family members agree to keep pt at home and no SNF placement. Pt very frail, wincing at times but conversant, alert and oriented. Pt had completed a MOLST form with provider, deaf interpreter and RN witness. Pt does not want CPR or intubation but will agree to other supportive measures. Pt's son, HCP Abdoul strongly opposed any care that does not involve aggressive resuscitative measures despite pt's wishes. Multiple care providers have discussed and educated him on pt prognosis and her own wishes to no avail. Pt will return to home with family support - although considerable time was spend on educating family on Hospice, no decisions were able to be made. Pt will need BLS transport.
[2022-03-03 08:39] LABS: Reflex Lactate? Lactic Acid Added
[2022-03-03] MEDS: Pantoprazole Sodium 80 MG in 0.9 % Sodium Chloride 80 ML 10 MG IV (09:27)
[2022-03-03 09:35] LABS: Glucose, Whole Blood 108 mg/dL (60-115)
[2022-03-03 09:48] LABS: ~Lactic Acid-LAB USE ONLY 3.1 mmol/L (0.5-2.0)
[2022-03-03 09:50] LABS: Cancel Lactic Acid Canceled
[2022-03-03] MEDS: HYDROmorphone HCl 0.5 MG/0.5 ML SYRINGE 1 MG IVPUSH ×2 (10:17→11:24)
--- NOTE | 2022-03-03 10:44 | P.CNGI_ITS ---
History of Present Illness Data of Consult Service Date: 03/03/22 Requesting physician: Cary Jerez Primary Care Provider: Unknown Physician HPI Reason for consult: anemia, blood loss ?67 yo woman with advanced metastatic ovarian cancer with carcinomatosis, first diagnosed in 2013, with recurrence in 2017, and had been on chemotherapy until 2019 who I am seeing for assessment for anemia Limited hx from patient, weak and lethargic, v softly spoken She presents with hematemesis with nausea and diffuse abdominal pain with bloody stools and discomfort with poor appetite and failure to thrive. She had a digital rectal exam performed in ED which showed fresh blood, and a small gush of red blood.? There was stool and blood in the vaginal vault. Patient has been on eliquis for right lower limb DVT and was therefore given Kcentra, ceftriaxone, magnesium, 1 unit of blood, protonix, octeotide and IV fluids.? These treatments improved her BP and pulse rate. CT imaging revealed several dilated small bowel loops in the left abdomen, concerning for obstruction without a discrete transition point .? Increasing soft tissue density in the pelvis suspicious for worsening malignancy.? Moderate bilateral hydroureteronephrosis, similar on the left and increased in the right compared to prior CT, concerning for sequelae of mass effect on the distal ureters.? Redemonstrated extensive hepatic masses and retroperitoneal and bilateral inguinal lymphadenopathy. She was initially in ICU but down graded to IMC, not had any further hematemesis or rectal bleeding and denies any nausea but still has diffuse abdo pain. Review of Systems Review of Systems: Constitutional : Complaining of weight loss, No Fever, No Chills, No Night Sweats, No Fatigue, No Malaise ENT/Mouth : No Hearing loss, No Ear Pain, No Nasal Congestion, No Sinus Pain, No Hoarseness, No sore throat, No Rhinorrhea, No Swallowing Difficulty Eyes: No Eye Pain, No Swelling, No Redness, No Foreign Body, No Discharge, No Vision Changes Cardiovascular : No Chest Pain, No SOB, No Dyspnea on Exertion, No Orthopnea, No Edema, No Palpitations Respiratory : No Cough, No Sputum, No Wheezing, No Smoke Exposure, complaining o f Gastrointestinal : Complaining of nausea, vomiting blood, no diarrhea, possible rectal bleeding Genitourinary : Complaining of vaginal bleeding,, No Dysuria, No Urinary Frequency, No Hematuria, No Urinary Incontinence, No Urgency, No Flank Pain, No Urinary Flow Changes, No Hesitancy Musculoskeletal : No joint pain, No Myalgias, No Joint Swelling Skin : No Skin Lesions, No rash Neuro : No Weakness, No Numbness, No Paresthesias, No Loss of Consciousness, No Dizziness, No Headache Psych : No Anxiety/Panic, No Depression, No SI/HI/AH/VH, No Social Issues, Heme/Lymph: No Bruising, No Bleeding,No Lymphadenopathy Endocrine : No Polyuria, No Polydipsia, No Temperature Intolerance Yes all other systems are reviewed and are negative Constitutional: Constitutional: Denies chills and Denies fever(s) Cardiovascular: Cardiovascular: Denies chest pain, Reports palpitations and Denies dyspnea Respiratory: Respiratory: Denies cough and Denies dyspnea Gastrointestinal: Gastrointestinal: Reports abdominal pain and Denies vomiting Endocrine: Endocrine: Reports palpitations PMFSH Past Medical History Medical History Acute UTI Arthritis Bacteremia Diabetes DVT (deep venous thrombosis) Enterovesical fistula Hypoalbuminemia On total parenteral nutrition Osteoporosis Pelvic cancer Physical deconditioning Rectovaginal fistula Weakness Family History Family History Other No family history of coronary artery disease Surgical History Surgical History History of colon resection Hx of cholecystectomy Social History Social History Household Members: Spouse Housing: Apartment Do you presently have visiting nurse or other home services: Yes (3x/wk) Alcohol intake: never Patient Tobacco Use Status: Never used Tobacco Use of substances other than those prescribed or required for medical reasons: No Currently Displaying Signs/Symptoms of Drug Intoxication Withdrawal: No Have you been hit, kicked, punched, or otherwise hurt by someone within the past year? If so, by whom?: No Do you feel safe in your current relationship?: Yes Is there a partner from a previous relationship who is making you feel unsafe now?: No Are you made to feel afraid or neglected: No Advance Directives: Yes Advance Directives Information Provided: Yes Advance Directives on File: No Advance Directives Date on File: 05/04/21 Do you have thoughts of harming others: None Do you have a plan to hurt others: No Plan Recently lost weight without trying: Yes How much weight loss: Unsure Eating poorly because of decreased appetite: Yes Nutrition screen score: 5 Nutrition Risks: Acute nausea or vomiting x1 week, Anorexia and Poor intake 0- 25% >4 days Patient : No : No Poor oral hygiene: Yes service: No Current occupational status: unemployed and retired Meds Allergies Allergy/AdvReac Type Severity Reaction Status Date / Time Iodinated Contrast Media Allergy Severe DIFF.BREATH Verified 03/02/22 05:07 [IV Dye, Iodine Containing] ING Penicillins AdvReac Mild PASSED OUT Verified 03/02/22 05:07 Environmental Allergy Mild ITCHY Uncoded 03/02/22 05:07 EYES/RUNNY NOSE PENICILLIN G Allergy Unknown Unknown Uncoded 03/02/22 05:07 Active Medications: Current Medications Dextrose (Dextrose 50 % 25 Gm/50 Ml Syringe) 25 gm IVPUSH Q15M PRN; Protocol PRN Reason: per Hypoglycemia Standing Ord. Last Admin: 03/03/22 07:53 Dose: 25 gm Glucose (Glucose Gel 15 Gm Gel..Gram.) 15 gm PO Q15M PRN; Protocol PRN Reason: per Hypoglycemia Standing Ord. Hydromorphone HCl (Hydromorphone Hcl 0.5 Mg/0.5 Ml Syringe) 1 mg IVPUSH Q1H PRN; Protocol PRN Reason: Pain, Moderate (Pain Scale 4-6 Last Admin: 03/03/22 10:17 Dose: 1 mg Octreotide Acetate 500 mcg/ (Sodium Chloride) 501 mls @ 25.05 mls/hr IVCONT .Q20H [facility] Last Infusion: 03/03/22 09:28 Dose: Infused Piperacillin Sod/Tazobactam (Sod 3.375 gm/ Sodium Chloride) 50 mls @ 100 mls/hr IV Q6H [facility] Last Infusion: 03/03/22 09:28 Dose: Infused Dextrose/Sodium Chloride (D5ns) 1,000 mls @ 80 mls/hr IVCONT .[id number] [facility] Last Admin: 03/03/22 07:53 Dose: 80 mls/hr Pantoprazole Sodium 80 mg/ (Sodium Chloride) 100 mls @ 10 mls/hr IV .Q10H [facility] Last Admin: 03/03/22 09:27 Dose: 8 mg/hr, 10 mls/hr Home Medications Medication Instructions Recorded Confirmed Last Taken Type fentanyl 25 mcg/hr transdermal 1 patch topical Q3D 10/02/21 03/02/22 02/02/22 History patch sennosides 8.6 mg-docusate sodium 2 tab PO DAILY PRN Constipation 10/02/21 03/02/22 Unknown History 50 mg tablet (Senna Plus) fluticasone propionate 50 1 spray intranasal DAILY 01/19/22 03/02/22 Unknown History mcg/actuation nasal spray,suspension oxybutynin chloride 10 mg 1 tab PO DAILY 01/19/22 03/02/22 Unknown History tablet,extended release 24 hr thiamine HCl (vitamin B1) 100 mg 1 tab DAILY 01/19/22 03/02/22 Unknown History tablet trazodone 50 mg tablet 50 mg PO BEDTIME insomnia 01/19/22 03/02/22 Unknown History zinc oxide-cod liver oil topical 1 ea topical TID 02/05/22 03/02/22 Unknown History ointment (Pediatric Oint (cod liver oil)) fentanyl 12 mcg/hr transdermal 1 patch topical Q3D 03/02/22 03/02/22 Unknown History patch melatonin 5 mg tablet 1 tab PO BEDTIME 03/02/22 03/02/22 Unknown History multivitamin with folic acid 400 1 tab PO DAILY 03/02/22 03/02/22 Unknown History mcg tablet (Daily-Beltran (with folic acid)) nitrofurantoin 1 cap DAILY 03/02/22 03/02/22 Unknown History monohydrate/macrocrystals 100 mg capsule omeprazole magnesium 10 mg oral 20 mg PO DAILY@0630 03/02/22 03/02/22 Unknown History suspension,delayed release (Prilosec) ondansetron HCl 4 mg tablet 1 tab PO Q8H PRN Nausea 03/02/22 03/02/22 Unknown History oxycodone 10 mg tablet 1 tab PO Q8H 03/02/22 03/02/22 Unknown History Physical Exam Vital Signs: Vital Signs: Last Vital Signs Temp 97.5 F 03/03/22 08:00 Pulse 99 03/03/22 08:00 Resp 18 03/03/22 08:00 BP 98/56 L 03/03/22 08:00 Pulse Ox 93 03/03/22 08:00 O2 Del Method 03/03/22 08:00 O2 Flow Rate 2 03/03/22 01:00 Oxygen Flow Rate 2 03/02/22 10:43 BMI result Body Mass Index 19.6 EXAM: GENERAL: The patient is weak, lethargic, tired VITAL SIGNS:see workflow HEENT: Nonicteric sclerae, PERRLA, EOMI. Oropharynx clear. Moist mucous membranes. Conjunctivae appear poorly perfused. No thyroid mass. CHEST: Chest wall is nontender. HEART: increased rate and rhythm without murmurs. LUNGS: Clear to auscultation bilaterally. ABDOMEN: Hard, positive bowel sounds, difusely tender, no organomegaly.no flank tenderness, distended SKIN: No rash, no excessive bruising, petechiae, or purpura. NEUROLOGIC: Cranial nerves II-XII intact without motor/sensory deficit. psych: low mood Const: Other: Appearance: Alert. Oriented X3. Ill-appearing, weak Eyes: Pupils equal, round and reactive to light. ENT: Pharynx normal. Neck: Normal inspection. Neck supple. No lymph nodes noted. No crepitus CVS: Normal heart rate and rhythm. Pulses normal. Normal S1 and S2 Respiratory: No respiratory distress. Breath sounds normal. No Wheezing. No rales Abdomen: Soft , tenderness to palpation in all abdomen Digital rectal exam shows fresh blood, there was a small gush of blood : There seems to be an intravesicular fistula, there is stool in the vaginal vault and blood. Skin: Skin warm and dry. Patient is very pale Extremities: No lower extremity edema. No Lacerations. No Rash Neuro: Oriented X 3. No motor deficit. No sensory deficit. Moving all extremities. No slurred speech. CN 2 through 12 grossly intact Psych: calm, cooperative General: alert, awake and ill appearing Nutritional Appearance: malnourished and thin Orientation/consciousness: patient oriented x3 Neuro: General: patient oriented x3 Extrem: General: Yes normal to inspection Results Labs CBC & Chem 7: 03/03/22 06:29 03/03/22 06:29 Labs: Short CBC 03/02/22 03/02/22 03/02/22 Range/Units 12:45 20:12 20:12 WBC 14.8 H 14.8 H (4.8-10.8) X10*3/uL Hgb 9.6 L D 9.7 L 9.8 L (12.0-16.0) g/dl Hct 28.7 L D 28.4 L 28.6 L (37.0-47.0) % Plt Count 131 L D 129 L (160-400) X10*3/uL 03/02/22 03/03/22 Range/Units 23:50 06:29 WBC 14.6 H (4.8-10.8) X10*3/uL Hgb 10.1 L 10.7 L (12.0-16.0) g/dl Hct 29.6 L 31.1 L (37.0-47.0) % Plt Count 116 L (160-400) X10*3/uL BMP 03/02/22 03/02/22 03/03/22 12:45 20:12 06:29 Sodium 136 137 139 Potassium 4.5 4.3 4.0 Chloride 105 106 109 H Carbon Dioxide 21 L 19 L 19 L BUN 22 H 23 H 22 H Creatinine 1.11 1.20 1.22 Calcium 6.8 L 6.5 L 6.6 L Liver Function 03/02/22 03/03/22 Range/Units 12:45 06:29 Total Bilirubin 3.4 H (0.0-1.0) mg/dL AST 72 H (5-31) U/L ALT 11 (0-31) U/L Alkaline Phosphatase 630 H (39-117) U/L Albumin 2.7 L D 2.1 L D (3.5-5.0) g/dL Microbiology Microbiology Results: Microbiology 03/02/22 Unknown Urine Catheterized - Straight Catheter Urine Culture - Final 03/02/22 02:48 Blood - Venous Blood Culture - Preliminary Gram negative tess 03/02/22 02:45 Blood - Venous Blood Culture - Preliminary Gram negative tess Imaging CT scan - abdomen: Attestation: I personally reviewed and interpreted this imaging study as follows: My impression: massive enlarged liver, b/l hydronephrosis, pelvic masses Assessment and Plan (1) Anemia: Status: Acute (2) Small intestine obstruction: Status: Acute Plan 1/ Hematemsis with rectal bleeding on background of eliquis use with advanced metastatic ovarian ca with peritoneal carcinomatosis, and bowel obstruction. She may have mallor proctor tear due to vomiting caused by obstruction or generalized mucosal bleeding or DIC from her neoplasia. She may also have bleeding from erosion of the neoplasia itself into underlying blood vessels. ddx; AVM, dieulafoy, esophagitis and PUD. Since having kcentra and PPI with octreotide she has improved. PLAN: 1/ cont with PPI and octreotide 2/ can place NGT for obstruction if ongoing and not improving, can recheck a KUB 3/ EGD would be high risk given her current condition and guarded prognosis, would cont with conservative therapy. 4/ would hold on anti coagulation, disucss with vascular for other options such as IVC filter. If she has ingoing massive bleeding then may need IR embolization but she is in v poor condition and may not have the reserve to undergo an interventional procedure such as that. Procedures Date of Service Date of Service: 03/03/22
[2022-03-03] MEDS: Octreotide Acetate 500 MCG in 0.9 % Sodium Chloride 500 ML 25.05 MCG IVCONT (11:23)
--- NOTE | 2022-03-03 11:53 | P.PNIM_ITS ---
Subjective Subjective Date of Service: 03/03/22 Interval History: Seen and examined this morning Downgraded from the ICU yesterday Follow-up for multiple issues, including metastatic cancer, GI bleeding History obtained with the assistance of insulation nozzleman Last evening patient had a MOLST form filled out indicating her wishes to be DNR/DNI. Today her family is urging her to change her code status back to full code, initially the patient was resistant but eventually gave in She continues to have a significant amount of abdominal pain Review of Systems Review of Systems: Yes all other systems are reviewed and are negative Constitutional Constitutional: Denies chills and Denies fever(s) Cardiovascular Cardiovascular: Denies chest pain, Reports palpitations and Denies dyspnea Respiratory Respiratory: Denies cough and Denies dyspnea Gastrointestinal Gastrointestinal: Reports abdominal pain and Denies vomiting Endocrine Endocrine: Reports palpitations Physical Exam Vital Signs: Vital Signs: Last Vital Signs Temp 97.5 F 03/03/22 08:00 Pulse 99 03/03/22 08:00 Resp 18 03/03/22 08:00 BP 98/56 L 03/03/22 08:00 Pulse Ox 93 03/03/22 08:00 O2 Del Method 03/03/22 08:00 O2 Flow Rate 2 03/03/22 01:00 Oxygen Flow Rate 2 03/02/22 10:43 BMI result Body Mass Index 19.6 Const: General: alert, awake and ill appearing Nutritional Appearance: malnourished and thin Orientation/consciousness: patient oriented x3 Neuro: General: patient oriented x3 Objective Data Active Medications Dextrose (Dextrose 50 % 25 Gm/50 Ml Syringe) 25 gm IVPUSH Q15M PRN; Protocol PRN Reason: per Hypoglycemia Standing Ord. Last Admin: 03/03/22 07:53 Dose: 25 gm Documented By: JUAN DIEGO Glucose (Glucose Gel 15 Gm Gel..Gram.) 15 gm PO Q15M PRN; Protocol PRN Reason: per Hypoglycemia Standing Ord. Hydromorphone HCl (Hydromorphone Hcl 0.5 Mg/0.5 Ml Syringe) 1 mg IVPUSH Q1H PRN; Protocol PRN Reason: Pain, Moderate (Pain Scale 4-6 Last Admin: 03/03/22 11:24 Dose: 1 mg Documented By: JUAN DIEGO Octreotide Acetate 500 mcg/ (Sodium Chloride) 501 mls @ 25.05 mls/hr IVCONT .Q20H [facility] Last Admin: 03/03/22 11:23 Dose: 25 mcg/hr, 25.05 mls/hr Documented By: JUAN DIEGO Piperacillin Sod/Tazobactam (Sod 3.375 gm/ Sodium Chloride) 50 mls @ 100 mls/hr IV Q6H [facility] Last Infusion: 03/03/22 09:28 Dose: 0 mls/hr Documented By: JUAN DIEGO Dextrose/Sodium Chloride (D5ns) 1,000 mls @ 80 mls/hr IVCONT .[id number] [facility] Last Admin: 03/03/22 07:53 Dose: 80 mls/hr Documented By: JUAN DIEGO Pantoprazole Sodium 80 mg/ (Sodium Chloride) 100 mls @ 10 mls/hr IV .Q10H [facility] Last Admin: 03/03/22 09:27 Dose: 8 mg/hr, 10 mls/hr Documented By: JUAN DIEGO Labs CBC & Chem 7: 03/03/22 06:29 03/03/22 06:29 Labs: Laboratory Results - last 24 hr 03/02/22 03/02/22 03/02/22 02:57 12:45 12:45 MCV 86.4 MCH 28.9 MCHC 33.4 RDW 19.5 H Plt Count 131 L D MPV 10.9 Immature Gran % (Auto) Neut % (Auto) Lymph % (Auto) Armstrong % (Auto) Eos % (Auto) Baso % (Auto) Lymph # (Auto) Armstrong # (Auto) Eos # (Auto) Baso # (Auto) Abs Immat Gran (auto) Absolute Neuts (auto) Absolute Nucleated RBC 0.000 Nucleated RBC % (auto) 0.0 PT INR Anion Gap 15 Estim Creat Clear Calc 35.3 Estimated GFR 49 POC Glucose Random Glucose 61 Lactic Acid Lactic Acid F/U @ 2Hr Calcium 6.8 L Phosphorus 4.9 H Magnesium 2.0 Total Bilirubin AST ALT Alkaline Phosphatase Total Protein Albumin 2.7 L D Crossmatch See Detail 03/02/22 03/02/22 03/02/22 12:45 12:45 20:12 MCV MCH MCHC RDW Plt Count MPV Immature Gran % (Auto) Neut % (Auto) Lymph % (Auto) Armstrong % (Auto) Eos % (Auto) Baso % (Auto) Lymph # (Auto) Armstrong # (Auto) Eos # (Auto) Baso # (Auto) Abs Immat Gran (auto) Absolute Neuts (auto) Absolute Nucleated RBC Nucleated RBC % (auto) PT 28.1 H INR 2.4 H Anion Gap Estim Creat Clear Calc Estimated GFR POC Glucose Random Glucose Lactic Acid 3.0 H* 1.9 Lactic Acid F/U @ 2Hr Calcium Phosphorus Magnesium Total Bilirubin AST ALT Alkaline Phosphatase Total Protein Albumin Crossmatch 03/02/22 03/02/22 03/02/22 20:12 20:12 22:24 MCV 86.1 MCH 29.5 MCHC 34.3 RDW 19.9 H Plt Count 129 L MPV 10.4 Immature Gran % (Auto) 0.7 H Neut % (Auto) 83.8 H Lymph % (Auto) 7.4 L Armstrong % (Auto) 7.7 Eos % (Auto) 0.1 Baso % (Auto) 0.3 Lymph # (Auto) 1.1 L Armstrong # (Auto) 1.2 Eos # (Auto) 0.0 Baso # (Auto) 0.1 Abs Immat Gran (auto) 0.11 H Absolute Neuts (auto) 12.4 H Absolute Nucleated RBC 0.000 Nucleated RBC % (auto) 0.0 PT INR Anion Gap 16 Estim Creat Clear Calc 32.6 Estimated GFR 45 POC Glucose 92 Random Glucose 40 L* Lactic Acid Lactic Acid F/U @ 2Hr Calcium 6.5 L Phosphorus Magnesium Total Bilirubin AST ALT Alkaline Phosphatase Total Protein Albumin Crossmatch 03/03/22 03/03/22 03/03/22 06:29 06:29 06:29 MCV 86.4 MCH 29.7 MCHC 34.4 RDW 20.1 H Plt Count 116 L MPV 11.1 Immature Gran % (Auto) Neut % (Auto) Lymph % (Auto) Armstrong % (Auto) Eos % (Auto) Baso % (Auto) Lymph # (Auto) Armstrong # (Auto) Eos # (Auto) Baso # (Auto) Abs Immat Gran (auto) Absolute Neuts (auto) Absolute Nucleated RBC 0.000 Nucleated RBC % (auto) 0.0 PT INR Anion Gap 15 Estim Creat Clear Calc 32.1 Estimated GFR 44 POC Glucose Random Glucose 44 L* Lactic Acid 2.2 H* Lactic Acid F/U @ 2Hr Calcium 6.6 L Phosphorus 3.8 Magnesium 1.8 Total Bilirubin 3.4 H AST 72 H ALT 11 Alkaline Phosphatase 630 H Total Protein 6.1 L Albumin 2.1 L D Crossmatch 03/03/22 03/03/22 03/03/22 07:35 08:13 09:06 MCV MCH MCHC RDW Plt Count MPV Immature Gran % (Auto) Neut % (Auto) Lymph % (Auto) Armstrong % (Auto) Eos % (Auto) Baso % (Auto) Lymph # (Auto) Armstrong # (Auto) Eos # (Auto) Baso # (Auto) Abs Immat Gran (auto) Absolute Neuts (auto) Absolute Nucleated RBC Nucleated RBC % (auto) PT INR Anion Gap Estim Creat Clear Calc Estimated GFR POC Glucose 37 L* 139 H Random Glucose Lactic Acid Lactic Acid F/U @ 2Hr 3.1 H* Calcium Phosphorus Magnesium Total Bilirubin AST ALT Alkaline Phosphatase Total Protein Albumin Crossmatch 03/03/22 09:26 MCV MCH MCHC RDW Plt Count MPV Immature Gran % (Auto) Neut % (Auto) Lymph % (Auto) Armstrong % (Auto) Eos % (Auto) Baso % (Auto) Lymph # (Auto) Armstrong # (Auto) Eos # (Auto) Baso # (Auto) Abs Immat Gran (auto) Absolute Neuts (auto) Absolute Nucleated RBC Nucleated RBC % (auto) PT INR Anion Gap Estim Creat Clear Calc Estimated GFR POC Glucose 108 Random Glucose Lactic Acid Lactic Acid F/U @ 2Hr Calcium Phosphorus Magnesium Total Bilirubin AST ALT Alkaline Phosphatase Total Protein Albumin Crossmatch Microbiology Microbiology Results: Microbiology 03/02/22 Unknown Urine Culture - Final Urine Catheterized - Straight Catheter 03/02/22 02:48 Blood Culture - Preliminary Blood - Venous Gram negative tess 03/02/22 02:45 Blood Culture - Preliminary Blood - Venous Gram negative tess Assessment and Plan (1) GI bleed: Status: Acute (2) Anemia: Status: Acute (3) Small intestine obstruction: Status: Acute Plan This is a 67 year old female with advanced metastatic ovarian cancer, enterovesical fistula, DVT on Eliquis admitted to the ICU on March 02 for GI bleeding and possible small-bowel obstruction. She was treated with Kcentra your Protonix and octreotide. She was downgraded from the ICU in the afternoon on January 31 GI bleed H&H stable Not likely candidate for any invasive measures such as EGD -GI consult pending -continue octreotide -continue IV PPI -Eliquis on hold. given kcentra in ED Gram negative tess bacteremia 2/2 blood cultures + probable urinary source given colovesicular fistula UCx >100,000 mixed bella continue zosyn Possible SBO dilated bowel loops but no discrete transition point surgery consult pending Hypoglycemia r/t to poor po intake -continue D5 drip -prn dextrose h/o DVT Eliquis on hold for GIB vascular consult for ?IVC filter placement Advanced metastatic cancer with colovesicular fistula CT abdomen showing extensive metastases No longer candidate for palliative care Not a surgical candidate for repair of fistula Multiple providers have recommended hospice, family has declined a numerous occasions Pain control Severe protein calorie malnutrition Continue clear liquid diet- consider advancing diet after GI evaluation thrombocytopenia likely r/t acute illness follow CBC home medications on hold Attending-Dr. Freitas Code status-Patient signed MOLST form in ICU indicating wishes to be DNR/DNI however today family has convinced her to rescind her MOLST form and change her back to a full code. HCP - son Abdoul listed as HCP. patient indicated she would want her to be HCP but does not want to take that role due to the devide in his family regarding the patient care. Quality Stroke Does the patient have a stroke diagnosis?: No VTE Prior VTE?: Yes VTE Risk Level:: Medical - moderate - high VTE Device Contraindication: N/A - Device Ordered VTE Drug Contraindication: Treatment Not Indicated
[2022-03-03 12:19] LABS: Glucose, Whole Blood 104 mg/dL (60-115)
[2022-03-03 13:37] LABS: Glucose, Whole Blood 103 mg/dL (60-115)
--- NOTE | 2022-03-03 13:48 | MHC.CM.PN ---
See today's Medical note for updated changes.
--- NOTE | 2022-03-03 15:14 | MHC.CM.PN ---
CM was called to Patient's room by her [facility] [place] RN/Tonie and Dr. Correa joined shortly after. Daughter/Alternate HCP/Felicia presented a new HCP, filled out today, naming herself as the Primary HCP/Agent and Patient's as Alternate HCP/Agent (removing Son/Abdoul from his original position as the Primary HCP Agent). Per the discussion with MD, ORIGINAL HCP dated in September of this year will be honored (R/T question of Patient's full ability to comprehend what she is signing(PAIN MEDS INVOLVED), possible influence/pressure from Visitors). MD provided education to Felicia regarding Patient's condition and prognosis and encouraged Felicia to meet with family, to carry out PATIENT's wishes. CM will follow.
[2022-03-03] MEDS: Morphine Sulfate 4 MG/ML CARTRIDGE IVPUSH ×2 (16:07→20:46)
[2022-03-03 16:09] LABS: Glucose, Whole Blood 116 mg/dL (60-115)
--- NOTE | 2022-03-03 19:10 | PC.NURSE ---
Pt alert and oriented x3 but is speaking and understands minimal Bangladeshi. At 0719 critical blood sugars of 44. OJgiven with no effect. Again at 0719 critical Lactic lvel of 2.2. POC at 0743 is 39. Given D5 25g, and started on D5 NaCl running at 80ml/hr. Blood sugars improved. POC was 139 at 0813. New orders for Q1hr blood sugar checks. at 0930 blood sugar of 108, then 104 at 1030am.Lactic acid level critically high at 3.1 at 0947. notified. Jessica notified and new orders for Q2hr POCs. Pt's family at bedside discussing code status. Family decided they wanted the pt to remain full code. Pt's daughter came out and asked to fill out another HCP form. Pt was very lethargic when she agreed to sign the HCP form. Pt's daughter came out to the nurses station concerned about her mother getting Dilaudid for pain control. She stated that the pt does not do well and causes dry lips, and mouth sores. This nurse consulted with Pharmacy and they clarified that, that it was not the case. Family informed about it and they were adamant that they did not want the Dilaudid. Morphine ordered and they still said the wanted just Oxycodone. Small family meeting with , mukesh bautista and this nurse. Pt's daughter informed and educated on pt's condition and comfortability.
[2022-03-03] MEDS: ondansetron HCL 4 MG/2 ML VIAL IVPUSH (20:47)
[2022-03-03 21:26] LABS: Glucose, Whole Blood 108 mg/dL (60-115)
--- NOTE | 2022-03-03 23:00 | MHC.PIE ---
Patient surrounded by family. Patient grimacing, abd guarded. Family reports patient not tolerating PO intake, gagging when attempting to drink. Complaining of abd pain, but worried will not tolerate pain meds. No antiemetic ordered at this time. Dr Nix made aware - ordered zofran PRN. Medicated w/ Morphine & zofran with good effect (see MAR).
--- NOTE | 2022-03-03 23:00 | MHC.PIE ---
Assumed care at [facility] 2000 - patient noted to be consistently tachycardic 123-126, ST. Patient in pain at times, but also dozing, no change in HR. Dr Edward made aware - order to check rectal temp - temp 99.0. Temp reported to Dr Edward. No new orders at this time.
--- NOTE | 2022-03-03 23:29 | P.PNGS_ITS ---
Subjective Subjective Date of Service: 03/03/22 Interval history: pt having trouble eating but a little hungry but cant hold down anything Physical Exam Vital Signs: Vital Signs: Last Vital Signs Temp 99 F 03/03/22 21:48 Pulse 126 H 03/03/22 21:12 Resp 15 03/03/22 21:12 BP 102/53 L 03/03/22 21:12 Pulse Ox 97 03/03/22 19:58 O2 Del Method 03/03/22 19:58 O2 Flow Rate 2 03/03/22 19:58 Oxygen Flow Rate 2 03/02/22 10:43 BMI result Body Mass Index 19.6 GI: Other: little distended and painful Objective Data Active Medications Dextrose (Dextrose 50 % 25 Gm/50 Ml Syringe) 25 gm IVPUSH Q15M PRN; Protocol PRN Reason: per Hypoglycemia Standing Ord. Last Admin: 03/03/22 07:53 Dose: 25 gm Documented By: JUAN DIEGO Glucose (Glucose Gel 15 Gm Gel..Gram.) 15 gm PO Q15M PRN; Protocol PRN Reason: per Hypoglycemia Standing Ord. Octreotide Acetate 500 mcg/ (Sodium Chloride) 501 mls @ 25.05 mls/hr IVCONT .Q20H [facility] Last Admin: 03/03/22 11:23 Dose: 25 mcg/hr, 25.05 mls/hr Documented By: JUAN DIEGO Piperacillin Sod/Tazobactam (Sod 3.375 gm/ Sodium Chloride) 50 mls @ 100 mls/hr IV Q6H [facility] Last Infusion: 03/03/22 21:13 Dose: 0 mls/hr Documented By: JOAO Dextrose/Sodium Chloride (D5ns) 1,000 mls @ 80 mls/hr IVCONT .[id number] [facility] Last Admin: 03/03/22 20:36 Dose: 80 mls/hr Documented By: JOAO Morphine Sulfate (Morphine Sulfate 4 Mg/Ml Cartridge) 4 mg IVPUSH Q3H PRN; Pro tocol PRN Reason: Pain, Severe (Pain Scale 7-10) Last Admin: 03/03/22 20:46 Dose: 4 mg Documented By: JOAO Ondansetron HCl (Ondansetron Hcl 4 Mg/2 Ml Vial) 4 mg IVPUSH Q8H PRN PRN Reason: Nausea and Vomiting Last Admin: 03/03/22 20:47 Dose: 4 mg Documented By: JOAO Pantoprazole Sodium (Pantoprazole Sodium 40 Mg/10 Ml Vial) 40 mg IVPUSH DAILY@0630 [facility] Labs CBC & Chem 7: 03/03/22 06:29 03/03/22 06:29 Labs: Laboratory Results - last 24 hr 03/03/22 03/03/22 03/03/22 06:29 06:29 06:29 MCV 86.4 MCH 29.7 MCHC 34.4 RDW 20.1 H Plt Count 116 L MPV 11.1 Absolute Nucleated RBC 0.000 Nucleated RBC % (auto) 0.0 Anion Gap 15 Estim Creat Clear Calc 32.1 Estimated GFR 44 POC Glucose Random Glucose 44 L* Lactic Acid 2.2 H* Lactic Acid F/U @ 2Hr Calcium 6.6 L Phosphorus 3.8 Magnesium 1.8 Total Bilirubin 3.4 H AST 72 H ALT 11 Alkaline Phosphatase 630 H Total Protein 6.1 L Albumin 2.1 L D 03/03/22 03/03/22 03/03/22 07:35 08:13 09:06 MCV MCH MCHC RDW Plt Count MPV Absolute Nucleated RBC Nucleated RBC % (auto) Anion Gap Estim Creat Clear Calc Estimated GFR POC Glucose 37 L* 139 H Random Glucose Lactic Acid Lactic Acid F/U @ 2Hr 3.1 H* Calcium Phosphorus Magnesium Total Bilirubin AST ALT Alkaline Phosphatase Total Protein Albumin 03/03/22 03/03/22 03/03/22 09:26 11:20 13:21 MCV MCH MCHC RDW Plt Count MPV Absolute Nucleated RBC Nucleated RBC % (auto) Anion Gap Estim Creat Clear Calc Estimated GFR POC Glucose 108 104 103 Random Glucose Lactic Acid Lactic Acid F/U @ 2Hr Calcium Phosphorus Magnesium Total Bilirubin AST ALT Alkaline Phosphatase Total Protein Albumin 03/03/22 03/03/22 16:05 21:19 MCV MCH MCHC RDW Plt Count MPV Absolute Nucleated RBC Nucleated RBC % (auto) Anion Gap Estim Creat Clear Calc Estimated GFR POC Glucose 116 H 108 Random Glucose Lactic Acid Lactic Acid F/U @ 2Hr Calcium Phosphorus Magnesium Total Bilirubin AST ALT Alkaline Phosphatase Total Protein Albumin Microbiology Microbiology Results: Microbiology 03/02/22 Unknown Urine Culture - Final Urine Catheterized - Straight Catheter 03/02/22 02:48 Blood Culture - Preliminary Blood - Venous Gram negative tess 03/02/22 02:45 Blood Culture - Preliminary Blood - Venous Gram negative tess Procedures Date of Service Date of Service: 03/03/22 Progress Note: A&P Assessment and plan (1) Pelvic cancer: Status: Acute Plan pt with metastatic ovarian cancer and carcinomatosis. thee is no options for any abdominal surgery = explained to family. pt should be made dnr and palliative care Time Spent With Patient Time: Total time spent is greater than 50% in coordination of care (as documented) at patient's floor/unit and/or counseling patient: Quality Stroke Does the patient have a stroke diagnosis?: No VTE Prior VTE?: Yes VTE Risk Level:: Medical - moderate - high VTE Device Contraindication: N/A - Device Ordered VTE Drug Contraindication: Treatment Not Indicated
[2022-03-04] VITALS (8 sets, daily range): BP systolic 106–129; BP diastolic 52–67; PULSE 103–156; RESP 16–20; TEMP 36.1–36.8; O2SAT 93–97; BMI 19.6
--- NOTE | 2022-03-04 | ECG_ITS ---
Test Reason : tachycardia Blood Pressure : / mmHG Vent. Rate : 122 BPM Atrial Rate : 122 BPM P-R Int : 100 ms QRS Dur : 062 ms QT Int : 282 ms P-R-T Axes : 030 -14 -86 degrees QTc Int : 401 ms Sinus tachycardia Low voltage QRS Possible Anterolateral infarct , age undetermined Abnormal ECG When compared with ECG of 02-MAR-2022 02:43, Premature supraventricular complexes are no longer Present Borderline criteria for Anterior infarct are now Present Borderline criteria for Anterolateral infarct are now Present Referred By: Deborah Johnson Electronically Signed By:Charles Castelan
[2022-03-04] MEDS: Morphine Sulfate 4 MG/ML CARTRIDGE IVPUSH ×2 (01:08→09:09)
[2022-03-04] MEDS: Piperacillin Sodium/Tazobactam 3.375 GM in 0.9 % Sodium Chloride 50 ML IV ×4 (01:14→20:24)
[2022-03-04] MEDS: ondansetron HCL 4 MG/2 ML VIAL IVPUSH ×2 (01:19→09:09)
[2022-03-04 04:55] LABS: Glucose, Whole Blood 83 mg/dL (60-115)
[2022-03-04] MEDS: Pantoprazole Sodium 40 MG/10 ML VIAL IVPUSH (06:23)
[2022-03-04 07:06] LABS: Hematocrit 30.7 % (37.0-47.0); Hemoglobin 10.3 g/dl (12.0-16.0); Mean Corpuscular HGB Conc 33.6 g/dl (31.0-35.0); Mean Corpuscular Hemoglobin 29.2 pg (27.0-33.0); Mean Platelet Volume 10.9 fL (9.4-12.3); Platelet Count 117 X10*3/uL (160-400); Red Blood Count 3.53 X10*6/uL (4.20-5.50); Red Cell Distribution Width 20.9 % (11.0-16.0); White Blood Count 15.1 X10*3/uL (4.8-10.8)
[2022-03-04 07:31] LABS: Anion Gap 12 (12-20); Blood Urea Nitrogen 20 mg/dL (9-16); Calcium 6.6 mg/dL (8.4-10.2); Carbon Dioxide 21 mmol/L (22-29); Chloride 112 mmol/L (96-108); Creatinine Clr Calc Pharmacy 31.4; Estimated Glomerular Filt Rate 43; Glucose Random 80 mg/dL (60-115); Potassium 3.2 mmol/L (3.3-5.1); Sodium 142 mmol/L (135-145)
[2022-03-04] MEDS: Dextrose 5 % and 0.9 % NaCl 1,000 ML 80 ML IVCONT (10:00)
--- NOTE | 2022-03-04 10:11 | P.PNIM_ITS ---
Subjective Subjective Date of Service: 03/04/22 Interval History: Seen and examined this morning Downgraded from the ICU Follow-up for multiple issues, including metastatic cancer, GI bleeding Last evening patient had a MOLST form filled out indicating her wishes to be DNR/DNI. Today her family is urging her to change her code status back to full code, initially the patient was resistant but eventually gave in She continues to have a significant amount of abdominal pain Review of Systems Review of Systems: Yes all other systems are reviewed and are negative Constitutional Constitutional: Denies chills and Denies fever(s) Cardiovascular Cardiovascular: Denies chest pain, Reports palpitations and Denies dyspnea Respiratory Respiratory: Denies cough and Denies dyspnea Gastrointestinal Gastrointestinal: Reports abdominal pain and Denies vomiting Endocrine Endocrine: Reports palpitations Physical Exam Vital Signs: Vital Signs: Last Vital Signs Temp 97.4 F 03/04/22 07:53 Pulse 108 H 03/04/22 07:53 Resp 20 03/04/22 07:53 BP 106/52 L 03/04/22 07:53 Pulse Ox 97 03/04/22 07:53 O2 Del Method 03/04/22 07:53 O2 Flow Rate 2 03/04/22 07:53 Oxygen Flow Rate 2 03/02/22 10:43 BMI result Body Mass Index 19.6 Appearing in no acute distress, thin and frail head is normocephalic atraumatic eyes pupils are PERRLA sclera is anicteric mouth throat mucous membranes are intact and dry lung sounds are clear to auscultation heart regular rate rhythm, clear S1, S2 positive bowel sounds neuro patient is alert x3, no focal deficits Lethargic Objective Data Active Medications Dextrose (Dextrose 50 % 25 Gm/50 Ml Syringe) 25 gm IVPUSH Q15M PRN; Protocol PRN Reason: per Hypoglycemia Standing Ord. Last Admin: 03/03/22 07:53 Dose: 25 gm Documented By: ANAENOAL Glucose (Glucose Gel 15 Gm Gel..Gram.) 15 gm PO Q15M PRN; Protocol PRN Reason: per Hypoglycemia Standing Ord. Octreotide Acetate 500 mcg/ (Sodium Chloride) 501 mls @ 25.05 mls/hr IVCONT .Q20H [facility] Last Admin: 03/04/22 09:59 Dose: 25 mcg/hr, 25.05 mls/hr Documented By: HO.N-SOFFA Piperacillin Sod/Tazobactam (Sod 3.375 gm/ Sodium Chloride) 50 mls @ 100 mls/hr IV Q6H [facility] Last Infusion: 03/04/22 10:00 Dose: 0 mls/hr Documented By: TODD Dextrose/Sodium Chloride (D5ns) 1,000 mls @ 80 mls/hr IVCONT .[id number] [facility] Last Admin: 03/04/22 10:00 Dose: 80 mls/hr Documented By: TODD Morphine Sulfate (Morphine Sulfate 4 Mg/Ml Cartridge) 4 mg IVPUSH Q3H PRN; Protocol PRN Reason: Pain, Severe (Pain Scale 7-10) Last Admin: 03/04/22 09:09 Dose: 4 mg Documented By: TODD Ondansetron HCl (Ondansetron Hcl 4 Mg/2 Ml Vial) 4 mg IVPUSH Q8H PRN PRN Reason: Nausea and Vomiting Last Admin: 03/04/22 09:09 Dose: 4 mg Documented By: TODD Pantoprazole Sodium (Pantoprazole Sodium 40 Mg/10 Ml Vial) 40 mg IVPUSH DAILY@0630 [facility] Last Admin: 03/04/22 06:23 Dose: 40 mg Documented By: KEHINDE Labs CBC & Chem 7: 03/04/22 06:32 03/04/22 06:32 Labs: Laboratory Results - last 24 hr 03/03/22 03/03/22 03/03/22 11:20 13:21 16:05 MCV MCH MCHC RDW Plt Count MPV Absolute Nucleated RBC Nucleated RBC % (auto) Anion Gap Estim Creat Clear Calc Estimated GFR POC Glucose 104 103 116 H Random Glucose Calcium 03/03/22 03/04/22 03/04/22 21:19 04:51 06:32 MCV 87.0 MCH 29.2 MCHC 33.6 RDW 20.9 H Plt Count 117 L MPV 10.9 Absolute Nucleated RBC 0.000 Nucleated RBC % (auto) 0.0 Anion Gap Estim Creat Clear Calc Estimated GFR POC Glucose 108 83 Random Glucose Calcium 03/04/22 06:32 MCV MCH MCHC RDW Plt Count MPV Absolute Nucleated RBC Nucleated RBC % (auto) Anion Gap 12 Estim Creat Clear Calc 31.4 Estimated GFR 43 POC Glucose Random Glucose 80 Calcium 6.6 L Microbiology Microbiology Results: Microbiology 03/02/22 02:48 Blood Culture - Preliminary Blood - Venous Gram negative tess 03/02/22 02:45 Blood Culture - Preliminary Blood - Venous Gram negative tess 03/02/22 Unknown Urine Culture - Final Urine Catheterized - Straight Catheter Assessment and Plan (1) GI bleed: Status: Acute (2) Anemia: Status: Acute (3) Small intestine obstruction: Status: Acute Plan This is a 67 year old female with advanced metastatic ovarian cancer, enterovesical fistula, DVT on Eliquis admitted to the ICU on March 02 for GI bleeding and possible small-bowel obstruction. She was treated with Kcentra your Protonix and octreotide. She was downgraded from the ICU in the afternoon on January 31 Dysphagia speech eval Possible SBO dilated bowel loops but no discrete transition point surgery rec conservative measures may need NGT for continued nausea will check KUB give phenergan for continued nausea GI bleed. still bleeding H&H stable Not likely candidate for any invasive measures such as EGD GI rec checking KUB, continue IV PPI and octreotide Eliquis on hold. given kcentra in ED Hypokalemia poor intake replete follow BMP Gram negative tess bacteremia 2/2 blood cultures + probable urinary source given colovesicular fistula UCx >100,000 mixed bella continue zosyn Severe protein calorie malnutrition having nausea Continue clear liquid diet as tolerated may need to consider TPN if she is not eating Hypoglycemia r/t to poor po intake continue D5 drip prn dextrose h/o DVT Eliquis on hold for GIB vascular consult for ?IVC filter placement Advanced metastatic cancer with colovesicular fistula CT abdomen showing extensive metastases No longer candidate for palliative care Not a surgical candidate for repair of fistula Multiple providers have recommended hospice, family has declined a numerous occasions Pain control thrombocytopenia likely r/t acute illness follow CBC Attending-Dr. Freitas Code status-Patient signed MOLST form in ICU indicating wishes to be DNR/DNI however family has convinced her to rescind her MOLST form and change her back to a full code. HCP - son Abdoul listed as HCP. patient indicated she would want her to be HCP but does not want to take that role due to the divide in his family regarding the patient care. Quality Stroke Does the patient have a stroke diagnosis?: No VTE Prior VTE?: Yes VTE Risk Level:: Medical - moderate - high VTE Device Contraindication: N/A - Device Ordered VTE Drug Contraindication: Treatment Not Indicated
[2022-03-04 10:34] LABS: Glucose, Whole Blood 68 mg/dL (60-115)
--- NOTE | 2022-03-04 11:01 | PM.CNGS ---
History of Present Illness Consult details Consult date: 03/04/22 Reason for consult: other (dvt) Narrative: Very complex 67-year-old female presents to us for evaluation regarding DVT in the presence of a GI bleed. 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 She has had a a very complex some prolonged hospital stay. During this stay she was initially noted to have a questionable right lower extremity DVT. Left side was negative. Upon discussion with the where I was able to get most of the history she has a remote history of this right lower extremity DVT. She had been anticoagulated with Eliquis. Due to her GI bleed she is no longer able to be anticoagulated. She now presents to us for vascular evaluation. Review of Systems Review of Systems: Yes all other systems are reviewed and are negative Constitutional: Constitutional: Reports lethargy, Reports malaise and Reports weight loss ENT: Reports Normal hearing present Cardiovascular: Cardiovascular: Denies chest pain, Denies chest pain at rest, Denies chest pain with activity and Denies pedal edema Respiratory: Respiratory: Denies cough Gastrointestinal: Gastrointestinal: Denies abdominal pain Musculoskeletal: Musculoskeletal: Denies abnormal gait, Denies muscle cramps and Denies radiating pain into limb Integumentary/Breasts: Skin/Breast: Denies skin ulcer and Denies wounds Neurologic: Reports Normal hearing present and Denies abnormal gait Psychiatric: Psychiatric: Reports no additional psychiatric complaints [facility] Past Medical History Medical History (Updated 03/04/22 @ 11:03 by Corky Kaufman MD) Acute UTI Arthritis Bacteremia Diabetes DVT (deep venous thrombosis) Enterovesical fistula Hypoalbuminemia On total parenteral nutrition Osteoporosis Pelvic cancer Physical deconditioning Rectovaginal fistula Weakness Family History Family History Other No family history of coronary artery disease Surgical History Surgical History History of colon resection Hx of cholecystectomy Social History Social History Household Members: Spouse Housing: Apartment Do you presently have visiting nurse or other home services: Yes (3x/wk) Alcohol intake: never Patient Tobacco Use Status: Never used Tobacco Use of substances other than those prescribed or required for medical reasons: No Currently Displaying Signs/Symptoms of Drug Intoxication Withdrawal: No Have you been hit, kicked, punched, or otherwise hurt by someone within the past year? If so, by whom?: No Do you feel safe in your current relationship?: Yes Is there a partner from a previous relationship who is making you feel unsafe now?: No Are you made to feel afraid or neglected: No Advance Directives: Yes Advance Directives Information Provided: Yes Advance Directives on File: No Advance Directives Date on File: 05/04/21 Do you have thoughts of harming others: None Do you have a plan to hurt others: No Plan Recently lost weight without trying: Yes How much weight loss: Unsure Eating poorly because of decreased appetite: Yes Nutrition screen score: 5 Nutrition Risks: Acute nausea or vomiting x1 week, Anorexia and Poor intake 0-25% >4 days Patient : No : No Poor oral hygiene: Yes service: No Current occupational status: unemployed and retired Meds Allergies Allergy/AdvReac Type Severity Reaction Status Date / Time Iodinated Contrast Media Allergy Severe DIFF.BREATH Verified 03/02/22 05:07 [IV Dye, Iodine Containing] ING Penicillins AdvReac Mild PASSED OUT Verified 03/02/22 05:07 Environmental Allergy Mild ITCHY Uncoded 03/02/22 05:07 EYES/RUNNY NOSE PENICILLIN G Allergy Unknown Unknown Uncoded 03/02/22 05:07 Active Medications: Current Medications Dextrose (Dextrose 50 % 25 Gm/50 Ml Syringe) 25 gm IVPUSH Q15M PRN; Protocol PRN Reason: per Hypoglycemia Standing Ord. Last Admin: 03/03/22 07:53 Dose: 25 gm Glucose (Glucose Gel 15 Gm Gel..Gram.) 15 gm PO Q15M PRN; Protocol PRN Reason: per Hypoglycemia Standing Ord. Octreotide Acetate 500 mcg/ (Sodium Chloride) 501 mls @ 25.05 mls/hr IVCONT .Q20H [facility] Last Admin: 03/04/22 09:59 Dose: 25 mcg/hr, 25.05 mls/hr Piperacillin Sod/Tazobactam (Sod 3.375 gm/ Sodium Chloride) 50 mls @ 100 mls/hr IV Q6H [facility] Last Infusion: 03/04/22 10:00 Dose: Infused Dextrose/Sodium Chloride (D5ns) 1,000 mls @ 80 mls/hr IVCONT .[id number] [facility] Last Admin: 03/04/22 10:00 Dose: 80 mls/hr Promethazine HCl 6.25 mg/ (Sodium Chloride) 50.25 mls @ 201 mls/hr IV Q6H PRN PRN Reason: Nausea Morphine Sulfate (Morphine Sulfate 4 Mg/Ml Cartridge) 4 mg IVPUSH Q3H PRN; Protocol PRN Reason: Pain, Severe (Pain Scale 7-10) Last Admin: 03/04/22 09:09 Dose: 4 mg Ondansetron HCl (Ondansetron Hcl 4 Mg/2 Ml Vial) 4 mg IVPUSH Q8H PRN PRN Reason: Nausea and Vomiting Last Admin: 03/04/22 09:09 Dose: 4 mg Pantoprazole Sodium (Pantoprazole Sodium 40 Mg/10 Ml Vial) 40 mg IVPUSH DAILY@0630 [facility] Last Admin: 03/04/22 06:23 Dose: 40 mg Home Medications Medication Instructions Recorded Confirmed Last Taken Type fentanyl 25 mcg/hr transdermal 1 patch topical Q3D 10/02/21 03/02/22 02/02/22 History patch sennosides 8.6 mg-docusate sodium 2 tab PO DAILY PRN Constipation 10/02/21 03/02/22 Unknown History 50 mg tablet (Senna Plus) fluticasone propionate 50 1 spray intranasal DAILY 01/19/22 03/02/22 Unknown History mcg/actuation nasal spray,suspension oxybutynin chloride 10 mg 1 tab PO DAILY 01/19/22 03/02/22 Unknown History tablet,extended release 24 hr thiamine HCl (vitamin B1) 100 mg 1 tab DAILY 01/19/22 03/02/22 Unknown History tablet trazodone 50 mg tablet 50 mg PO BEDTIME insomnia 01/19/22 03/02/22 Unknown History zinc oxide-cod liver oil topical 1 ea topical TID 02/05/22 03/02/22 Unknown History ointment (Pediatric Oint (cod liver oil)) fentanyl 12 mcg/hr transdermal 1 patch topical Q3D 03/02/22 03/02/22 Unknown History patch melatonin 5 mg tablet 1 tab PO BEDTIME 03/02/22 03/02/22 Unknown History multivitamin with folic acid 400 1 tab PO DAILY 03/02/22 03/02/22 Unknown History mcg tablet (Daily-Beltran (with folic acid)) nitrofurantoin 1 cap DAILY 03/02/22 03/02/22 Unknown History monohydrate/macrocrystals 100 mg capsule omeprazole magnesium 10 mg oral 20 mg PO DAILY@0630 03/02/22 03/02/22 Unknown History suspension,delayed release (Prilosec) ondansetron HCl 4 mg tablet 1 tab PO Q8H PRN Nausea 03/02/22 03/02/22 Unknown History oxycodone 10 mg tablet 1 tab PO Q8H 03/02/22 03/02/22 Unknown History Physical Exam Vital Signs: Vital Signs: Last Vital Signs Temp 97.4 F 03/04/22 07:53 Pulse 108 H 03/04/22 07:53 Resp 20 03/04/22 07:53 BP 106/52 L 03/04/22 07:53 Pulse Ox 97 03/04/22 07:53 O2 Del Method 03/04/22 07:53 O2 Flow Rate 2 03/04/22 07:53 Oxygen Flow Rate 2 03/02/22 10:43 BMI result Body Mass Index 19.6 Const: General: cooperative, healthy appearing and comfortable Orientation/consciousness: oriented to person, oriented to place and oriented to time HEENT: Head: Yes normal to inspection Neck: Neck: Yes normal visual inspection Carotids: no bruits Chest: Chest palpation & inspection: normal inspection of the chest Resp: Effort & Inspection: normal respiratory effort and able to speak in complete sentences Auscultation: clear to auscultation bilaterally, no crackles, no rales, no rhonchi and no wheezes Cardio: Rate: regular rate Rhythm: regular rhythm Heart sounds: S1 normal heart sound present and S2 normal heart sound present Bruits: no carotid bruits Peripheral pulses: Peripheral pulses 2+ throughout GI: Inspection: Yes normal to inspection Skin: Wounds: no wounds Hair: normal Neuro: General: oriented to person, oriented to place and oriented to time Cranial nerves: Yes CN's II-XII intact bilaterally and Yes Normal hearing present Cognition (Neuro): normal cognition Motor exam (neuro): 5/5 motor strength present throughout Extrem: Other: venous exam: Bilateral +1 edema General: No clubbing, No cyanosis and No edema Psych: Appearance: grossly normal Mental Status: mental status grossly normal Speech and movement: Normal speech and movement present Results Labs Result diagrams: 03/04/22 06:32 03/04/22 06:32 Labs: Abnormal lab results 03/03/22 03/04/22 03/04/22 Range/Units 16:05 06:32 06:32 WBC 15.1 H (4.8-10.8) X10*3/uL RBC 3.53 L (4.20-5.50) X10*6/uL Hgb 10.3 L (12.0-16.0) g/dl Hct 30.7 L (37.0-47.0) % RDW 20.9 H (11.0-16.0) % Plt Count 117 L (160-400) X10*3/uL Potassium 3.2 L (3.3-5.1) mmol/L Chloride 112 H (96-108) mmol/L Carbon Dioxide 21 L (22-29) mmol/L BUN 20 H (9-16) mg/dL POC Glucose 116 H (60-115) mg/dL Calcium 6.6 L (8.4-10.2) mg/dL Short CBC 03/04/22 Range/Units 06:32 WBC 15.1 H (4.8-10.8) X10*3/uL Hgb 10.3 L (12.0-16.0) g/dl Hct 30.7 L (37.0-47.0) % Plt Count 117 L (160-400) X10*3/uL BMP 03/04/22 06:32 Sodium 142 Potassium 3.2 L Chloride 112 H Carbon Dioxide 21 L BUN 20 H Creatinine 1.25 Calcium 6.6 L Urine 03/02/22 Range/Units 04:30 Urine Color RED A Urine Appearance TURBID Urine pH 8.5 H (5.0-8.0) Ur Specific Clio <= 1.005 (1.005-1.025) Urine Protein 3+ H (NEG-TRACE) MG/DL Urine Glucose (UA) 250 H (NEG) MG/DL All other labs normal. Assessment and Plan (1) DVT (deep venous thrombosis): Status: Acute Plan Patient has a remote history of right lower extremity DVT. I did review all her venous testing and on 02/06 the right lower extremity looked like it had a superficial venous thrombosis that extended into the common femoral vein. She was anticoagulated with Eliquis. Due to her GI bleed she is no longer able to be anticoagulated. The question is should of filter be required. I have taken the liberty of ordering repeat venous testing of that right lower extremity. I would like to see the extent of that clot. Should it resolve or be improved I would hold off on any filter placement. She has multiple comorbidities and a complex course. Overall level of care should be readdressed. We will continue to follow with you and should a filter be required would be happy to place. Thank you for allowing us to participate in this patient's care. If there are any questions or concerns please do not hesitate to contact us. Procedures Date of Service Date of Service: 03/04/22
[2022-03-04 13:21] LABS: Glucose, Whole Blood 65 mg/dL (60-115)
--- NOTE | 2022-03-04 14:45 | PC.NURSE ---
Addendum entered by Adelso Gomez RN 03/04/22 18:17: informed x2 pt HR still sustaining 130s+ Addendum entered by Adelso Gomez RN 03/04/22 16:11: pt HR sustaining 130-160s while in bed w/ no activity. md informed, vitals obtained, ECG to be obtained per md verbal order Addendum entered by Adelso Gomez RN 03/04/22 15:00: pt requesting pain medication refusing prn morphine. md informed. Original Note: Family at bedside assisting with care. Pt refused to finish phenergan drip stating she wasnt feeling well while receiving it. pt and family also no longer want morphine or dilaudid for pain, requesting PO Oxy. speech eval was performed and pt did pass. informed of pt having multiple small BM's that are bloody w/ blood clots. safety and fall precautions in place. call mcadams within reach. pt repositioning self.
--- NOTE | 2022-03-04 14:48 | MHC.CLN ---
RE: CONSULT PT IS SEVERELY MALNOURISHED PT WITH SEVERELY DEPLETED SUBCUTANEOUS FAT AND MUSCLE MASS WITH +3 ANASARCA AND CHRONIC POOR PO INTAKE R/T TERMINAL DX OVARIAN CA WITH METS DIET RX: C/L-APPROPRIATE NOTED PT GAGGING ON LIQUIDS AT TIMES FAMILY IN DISAGREEMENT OVER GOALS OF CARE, HOWEVER NOTED NO PEG TUBE PER FAMILY IF TPN NEEDED; RECOMMEND D10AA4.25 AT 30ML/HR TO PROVIDE 367KCALS, 31G PROTEIN WILL FOLLOW WITH TEAM AND PROVIDE SUPPORT NEEDED SEE ALSO FULL CLINICAL NUTRITION ASSESSMENT
[2022-03-04 15:44] LABS: Glucose, Whole Blood 60 mg/dL (60-115)
[2022-03-04] MEDS: oxyCODONE HCl Immed Release 5 MG TABLET 10 MG PO (16:01)
[2022-03-04 16:57] LABS: Hematocrit 32.1 % (37.0-47.0); Hemoglobin 10.7 g/dl (12.0-16.0)
--- NOTE | 2022-03-04 17:22 | MHC.SL.SWA ---
Speech Pathologist Impression: Oropharyngeal dysphagia Risk of Aspiration Due to: Medically Fragile Dysphasia Diet Status: Upgrade Liquid Consistency and Strategies for Safe Swallow: Liquid Intake Recommendation: Thin Liquid Intake Strategies: Small Sips No Straws Liquids by Teaspoon Only Solid Food Consistency: Dietary Recommendations: Pureed (NDD1) Additional Modifications to Solid Foods: Pt currently on clear liquid diet. When cleared for advancement in diet, recommend pureed (NDD1) solids (d/t fatigue) with thin liquids by teaspoon, pills crushed in puree. Notified MD, RN, RD via [employer] Message. Pt requires total 1:1 assistance feeding d/t generalized weakness; monitor for any overt s/s of aspiration. Ensure aspiration precautions: -take small sips of liquid by teaspoon -avoid the use of straws -one sip at a time -one bite at a time, ensure oral cavity is clear before taking more bites -upright 90 degree position while eating and drinking and for at least 30 minutes afterwards -frequent oral care Oral Medication Intake: Crushed with Puree Please contact the pharmacy regarding appropriate crushable or liquid drug formulations that are available whenever modified delivery is recommended. Compensatory Strategies and Precautions to be Taken for Safe Swallow: Sitting Upright (90 deg) No Straw Liquids from Spoon Small Bites and Sips Rate of Ingestion Change Oral Check Supervision While Eating and Drinking for Safe Swallow: Total Assistance (1:1) Swallowing Recommended Treatments: Compens. Strategy Educat. Recommendation for Speech: Inpatient Speech Therapy A Operator Clinican/Clinical Fellow: No Supervisory Statement: I have reviewed and agree with the student/clinical fellow's documentation: N/A Speech Language Pathologist: Yoly Figueroa M.A., CCC-[facility]
[2022-03-04] MEDS: Potassium Chloride/H20 10 MEQ/100 ML PIGGYBACK 100 MEQ IV (17:55)
[2022-03-04 18:04] LABS: Glucose, Whole Blood 66 mg/dL (60-115)
[2022-03-04 18:07] LABS: Troponin-I High Sensitivity 5.9 ng/L (<3.5-17.0)
--- NOTE | 2022-03-04 18:52 | PM.EVENT ---
Event Note Date of Service: 03/04/22 Event Note: Tachycardia record shows that patient has been tachycardic throughout stay, ECG shows sinus tach, presently HR around 130s, she's assymptomatic, no hypoxic, H/H has been checked earlier to be stable, patient with multiple and complex medical and ethical issues, terminally sick recent gIb and unable to anticoagulate with history of vte, diffuse metastatic cancer, there is being multiple back and forth on code status and is now back to full code, ICU has categorically stated no candidate to code. Sinus tach like related to ongoing underlying multiple issues--cancer, recent gib, volume depletion, bP is maintained and patient is assymptomatic and she has had episode throughout stay and thus no specicic treatment indicated at this time, will continue to monitor. The should be ongoing conversation with the family to address code status which under acceptable norms should be DNR/DNI and comfort care. For now increase IVF, continue monitor, and reassess if her clinical condition changes
[2022-03-04 19:16] LABS: Glucose, Whole Blood 58 mg/dL (60-115)
[2022-03-04] MEDS: Dextrose 50 % 25 GM/50 ML SYRINGE IVPUSH (19:22)
[2022-03-04 19:57] LABS: Glucose, Whole Blood 138 mg/dL (60-115)
--- NOTE | 2022-03-04 20:38 | PC.NURSE ---
Pt's family asked for Oxycodone for patients pain. I explained it was due at 20:00 and I would be back in around then to give it as well as the Zofran they requested and her IV antibiotics. Entered patients room at 20:19. Patients daughter stated she already gave her mother Zofran and Oxycodone (patients own from home). Nursing supervisor brine notified and she spoke with patients daughter who stated she will not give her anymore and will bring the meds home.
[2022-03-05] MEDS: Potassium Chloride/H20 10 MEQ/100 ML PIGGYBACK 100 MEQ IV (01:39)
[2022-03-05] MEDS: Piperacillin Sodium/Tazobactam 3.375 GM in 0.9 % Sodium Chloride 50 ML IV ×3 (01:41→16:01)
[2022-03-05 02:36] LABS: Glucose, Whole Blood 58 mg/dL (60-115)
[2022-03-05] MEDS: Glucose Gel 15 GM GEL..GRAM. PO ×2 (02:37→03:08)
[2022-03-05 03:04] LABS: Glucose, Whole Blood 46 mg/dL (60-115)
[2022-03-05] MEDS: oxyCODONE HCl Immed Release 5 MG TABLET 10 MG PO ×3 (03:13→20:43)
[2022-03-05 03:34] VITALS: BP 111/55; PULSE 148; RESP 17; TEMP 36.8; O2SAT 92
[2022-03-05 03:42] LABS: Glucose, Whole Blood 109 mg/dL (60-115)
--- NOTE | 2022-03-05 03:53 | PC.NURSE ---
HS POC 58. Pt lethargic at time. Gave 25GM IV Dextrose and recheck POC was 138. Around 0200, went in to hang patients antibiotics and recheck POC. Found patients IV turned off (had D5NS infusing at 125mls/hr). Pt's daughter stated it was beeping so she shut it off. This was around 2129, after Zosyn completed. Restarted IV and discussed with patients daughter the importance of not shutting the IV off. She stated it wasn't running. I told her when I left the room it was and reminded her that I showed it to her at the time (the drip in the chamber as well as the arrows going across the screen). Nursing painter supervisor notified. POC at 0230 was 58. After receiving 2 rounds of 15GM'sof PO Glucose, patients POC was 109. Will check a next scheduled draw in am. Will continue to monitor.
[2022-03-05 05:04] LABS: Glucose, Whole Blood 76 mg/dL (60-115)
[2022-03-05] MEDS: Pantoprazole Sodium 40 MG/10 ML VIAL IVPUSH (05:29)
[2022-03-05] MEDS: Dextrose 5 % and 0.9 % NaCl 1,000 ML 125 ML IVCONT (05:29)
--- NOTE | 2022-03-05 06:25 | PC.NURSE ---
06:15. CITY DISPATCHER came to me stating the patients daughter turned off the IV. I went in and patients daughter stated the IV said to shut it off . I turned on the IV, reexplaining the importance of not touching the IV so her mother could get her much needed IV fluids with the glucose (since shes has been running low). When I turned the IV back on, the history was wiped out and I had to reprogram the whole thing. Pt's daughter just interrupted me from writing this note to say the IV was eeping-I went in and adjusted the line-the patients arm was laying on it. Pt c/o headache. Cold compress given. Requested Tylenol fro directed to give Morphine or Oxycodone. Pt refuses Morphine. Oxycodone not due. Will pass along to day shift to medicate when due if still needed. Nursing carpet finishing supervisor made aware of patients daughter shutting of IV and ensuing low blood sugars.
[2022-03-05 08:00] VITALS: BP 131/84; PULSE 130; RESP 20; TEMP 36.7; O2SAT 97; BMI 19.1
[2022-03-05 08:02] LABS: Glucose, Whole Blood 101 mg/dL (60-115)
--- NOTE | 2022-03-05 08:55 | HO.PM.IMPN ---
Subjective Subjective Date of Service: 03/05/22 Review of Systems Follow up UGI bleed Sleeping during visit still tachy Physical Exam Vital Signs: Vital Signs: Last Vital Signs Temp 98.0 F 03/05/22 08:00 Pulse 130 H 03/05/22 08:00 Resp 20 03/05/22 08:00 BP 131/84 03/05/22 08:00 Pulse Ox 97 03/05/22 08:00 O2 Del Method 03/05/22 08:00 O2 Flow Rate 2 03/05/22 08:00 Oxygen Flow Rate 2 03/02/22 10:43 BMI result Body Mass Index 19.1 Appearing in no acute distress lung sounds are clear to auscultation heart regular rate rhythm, tacycardic positive bowel sounds, abdomen is soft, nontender neuro patient is sleeping, had not slept all night Objective Data Active Medications Dextrose (Dextrose 50 % 25 Gm/50 Ml Syringe) 25 gm IVPUSH Q15M PRN; Protocol PRN Reason: per Hypoglycemia Standing Ord. Last Admin: 03/04/22 19:22 Dose: 25 gm Documented By: KINGSTON Fentanyl (Fentanyl 25 Mcg Patch.Td72) 25 mcg TRANSDERMA Q72H [facility] Glucose (Glucose Gel 15 Gm Gel..Gram.) 15 gm PO Q15M PRN; Protocol PRN Reason: per Hypoglycemia Standing Ord. Last Admin: 03/05/22 03:08 Dose: 15 gm Documented By: KINGSTON Octreotide Acetate 500 mcg/ (Sodium Chloride) 501 mls @ 25.05 mls/hr IVCONT .Q20H [facility] Last Admin: 03/04/22 15:02 Dose: Not Given Documented By: TODD Non-Admin Reason: Medication Discontinued Piperacillin Sod/Tazobactam (Sod 3.375 gm/ Sodium Chloride) 50 mls @ 100 mls/hr IV Q6H [facility] Last Admin: 03/05/22 08:26 Dose: 100 mls/hr Documented By: MINI Promethazine HCl 6.25 mg/ (Sodium Chloride) 50.25 mls @ 201 mls/hr IV Q6H PRN PRN Reason: Nausea Last Infusion: 03/04/22 12:39 Dose: 0 mls/hr Documented By: TODD Morphine Sulfate (Morphine Sulfate 4 Mg/Ml Cartridge) 4 mg IVPUSH Q3H PRN; Protocol PRN Reason: Pain, Severe (Pain Scale 7-10) Last Admin: 03/04/22 09:09 Dose: 4 mg Documented By: TODD Ondansetron HCl (Ondansetron Hcl 4 Mg/2 Ml Vial) 4 mg IVPUSH Q8H PRN PRN Reason: Nausea and Vomiting Last Admin: 03/04/22 09:09 Dose: 4 mg Documented By: TODD Oxycodone HCl (Oxycodone Hcl Immed Release 5 Mg Tablet) 10 mg PO Q4H PRN PRN Reason: Pain, Mild (Pain Scale 1-3) Last Admin: 03/05/22 03:13 Dose: 10 mg Documented By: KINGSTON Pantoprazole Sodium (Pantoprazole Sodium 40 Mg/10 Ml Vial) 40 mg IVPUSH DAILY@0630 [facility] Last Admin: 03/05/22 05:29 Dose: 40 mg Documented By: KINGSTON Labs CBC & Chem 7: 03/04/22 16:38 03/04/22 06:32 Labs: Laboratory Results - last 24 hr 03/04/22 03/04/22 03/04/22 10:31 13:18 15:39 POC Glucose 68 65 60 Troponin I High Sens 03/04/22 03/04/22 03/04/22 16:38 17:54 19:11 POC Glucose 66 58 L* Troponin I High Sens 5.9 03/04/22 03/05/22 03/05/22 19:53 02:32 03:00 POC Glucose 138 H 58 L* 46 L* Troponin I High Sens 03/05/22 03/05/22 03/05/22 03:36 05:01 07:25 POC Glucose 109 76 101 Troponin I High Sens Microbiology Microbiology Results: Microbiology 03/02/22 02:48 Blood Culture - Preliminary Blood - Venous Gram negative tess 03/02/22 02:45 Blood Culture - Preliminary Blood - Venous Gram negative tess Assessment and Plan (1) GI bleed: Status: Acute (2) Anemia: Status: Acute (3) Small intestine obstruction: Status: Acute Plan This is a 67 year old female with advanced metastatic ovarian cancer, enterovesical fistula, DVT on Eliquis admitted to the ICU on Le 16th for GI bleeding and possible small-bowel obstruction. She was treated with Kcentra your Protonix and octreotide. She was downgraded from the ICU in the afternoon on January 31 03/05/22 Family has been quite difficult to deal with. Daughter this morning was concerned that the potassium was causing the patient to have tachycardia. Nursing staff also informed me that she was caught self medicating her mother with what is presumed to be home oxycodone and she has been shutting off the IV pumps. She was told firmly this morning that she is not to self medicate her mother and she is not to touch the IV pumps and she should locate nursing staff for that. She stated understanding. A chest CTA was ordered to assess for PE due to tachycardia however the daughter declined to have her mother go down as she was resting. She also declined to have labs drawn on her mother at this time. Discussion was had with Osmar Tobin, finance director and he was made aware of the situation. Dysphagia speech eval rec puree diet not eating much today, may have to consider TPA Possible SBO dilated bowel loops but no discrete transition point surgery rec conservative measures KUB showed no ileus or obstruction give phenergan for continued nausea GI bleed. still bleeding H&H stable Not likely candidate for any invasive measures such as EGD continue IV PPI and octreotide Eliquis on hold. given kcentra in ED Hypokalemia poor intake replete follow BMP Gram negative tess bacteremia 2/2 blood cultures + probable urinary source given colovesicular fistula UCx >100,000 mixed bella continue zosyn Severe protein calorie malnutrition having nausea Continue clear liquid diet as tolerated may need to consider TPN if she is not eating Hypoglycemia r/t to poor po intake continue D5 drip prn dextrose h/o DVT Eliquis on hold for GIB vascular consult for ?IVC filter placement Advanced metastatic cancer with colovesicular fistula CT abdomen showing extensive metastases No longer candidate for palliative care Not a surgical candidate for repair of fistula Multiple providers have recommended hospice, family has declined a numerous occasions Pain control thrombocytopenia likely r/t acute illness follow CBC Attending-Dr. Freitas Code status-Patient signed MOLST form in ICU indicating wishes to be DNR/DNI however family has convinced her to rescind her MOLST form and change her back to a full code. HCP - son Abdoul listed as HCP. patient indicated she would want her to be HCP but does not want to take that role due to the divide in his family regarding the patient care. Quality Stroke Does the patient have a stroke diagnosis?: No VTE Prior VTE?: Yes VTE Risk Level:: Medical - moderate - high VTE Device Contraindication: N/A - Device Ordered VTE Drug Contraindication: Treatment Not Indicated
--- NOTE | 2022-03-05 09:06 | HO.VASCPN ---
Subjective Subjective Date of Service: 03/05/22 Patient reports: no new complaints Interval history: Very complex 67-year-old female with prior history DVT that was confirmed with repeat ultrasound yesterday on the right lower extremity presents for vascular follow-up. Of note she has been not anticoagulated due to history of GI bleed. She has metastatic cancer as well. She presents for vascular follow-up with patients family at bedside. Of note nurse was present during conversation with family. Physical Exam Vital Signs: Vital Signs: Last Vital Signs Temp 98.0 F 03/05/22 08:00 Pulse 130 H 03/05/22 08:00 Resp 20 03/05/22 08:00 BP 131/84 03/05/22 08:00 Pulse Ox 97 03/05/22 08:00 O2 Del Method 03/05/22 08:00 O2 Flow Rate 2 03/05/22 08:00 Oxygen Flow Rate 2 03/02/22 10:43 BMI result Body Mass Index 19.1 Const: General: confusion, lethargic and tired appearing Nutritional Appearance: cachectic Orientation/consciousness: confusion and lethargic HEENT: Head: Yes normal to inspection Neck: Carotids: no bruits Chest: Chest palpation & inspection: normal inspection of the chest Resp: Effort & Inspection: normal respiratory effort and able to speak in complete sentences Auscultation: clear to auscultation bilaterally Cardio: Rate: regular rate Heart sounds: S1 normal heart sound present and S2 normal heart sound present GI: Inspection: Yes normal to inspection Skin: General skin exam: no rashes or lesions noted Wounds: no wounds Neuro: General: CN's II-XI intact bilaterally and confusion Extrem: Other: Plus two edema bilaterally General: Yes edema Psych: Appearance: grossly normal and well kempt Speech and movement: Normal speech and movement present Affect: normal affect Progress Note: A&P Assessment and plan (1) DVT (deep venous thrombosis): Status: Acute Assessment and Plan: Patient has confirm DVT. It would be my formal recommendation for an IVC filter as she is not able to be anticoagulated due to bowel fistulization and GI bleed. I had a very giovanna discussion with the patient's family at bedside and the did not want to proceed with any additional procedures. Will hold off on IVC filter. In addition would recommend holding off on CT scan as no intervention is going to be performed, or the patient cannot be anticoagulated. I once again had a discussion with the family regarding the patient's overall status and consideration end of life care. We will hold off on any procedures at the current time. Thank you for allowing us to assist in her care. If there are any questions or concerns please do not hesitate to contact us. Time Spent With Patient Time: Total time spent is greater than 50% in coordination of care (as documented) at patient's floor/unit and/or counseling patient: Procedures Date of Service Date of Service: 03/05/22 Quality Stroke Does the patient have a stroke diagnosis?: No VTE Prior VTE?: Yes VTE Risk Level:: Medical - moderate - high VTE Device Contraindication: N/A - Device Ordered VTE Drug Contraindication: Treatment Not Indicated
[2022-03-05 11:34] LABS: Glucose, Whole Blood 96 mg/dL (60-115)
[2022-03-05 11:39] VITALS: BP 119/60; PULSE 137; RESP 20; TEMP 36.7; O2SAT 100
[2022-03-05 11:45] LABS: MANUAL DIFF FLAG NO
[2022-03-05 11:56] LABS: Basophils Percent Auto 0.1 % (0-2); Eosinophils Percent Auto 0.2 % (0-4); Hematocrit 31.5 % (37.0-47.0); Hemoglobin 10.4 g/dl (12.0-16.0); Imm Gran Abs Auto 0.26 X10*3/uL (0.00-0.03); Imm Gran Pct Auto 1.5 % (0.0-0.4); Lymphocytes Absolute Auto 1.1 X10*3/uL (1.2-4.9); Lymphocytes Percent Auto 6.1 % (20-40); Mean Corpuscular Hemoglobin 29.2 pg (27.0-33.0); Mean Corpuscular Volume 88.5 fL (80.0-98.0); Mean Platelet Volume 10.4 fL (9.4-12.3); Monocytes Percent Auto 6.1 % (2-11); NRBC Pct Auto 0.1 /100WBC (0.0-0.2); Neutrophils Absolute Auto 14.7 x10*3/uL (2.0-8.3); Platelet Count 114 X10*3/uL (160-400); Red Blood Count 3.56 X10*6/uL (4.20-5.50); Red Cell Distribution Width 21.5 % (11.0-16.0); White Blood Count 17.1 X10*3/uL (4.8-10.8)
[2022-03-05 12:09] LABS: Anion Gap 12 (12-20); Blood Urea Nitrogen 19 mg/dL (9-16); Calcium 6.8 mg/dL (8.4-10.2); Carbon Dioxide 20 mmol/L (22-29); Chloride 117 mmol/L (96-108); Creatinine Clr Calc Pharmacy 30.8; Estimated Glomerular Filt Rate 43; Glucose Random 93 mg/dL (60-115); Potassium 3.3 mmol/L (3.3-5.1); Sodium 146 mmol/L (135-145)
[2022-03-05] MEDS: Dextrose 5 % and 0.9 % NaCl 1,000 ML 100 ML IVCONT (13:04)
--- NOTE | 2022-03-05 13:11 | PC.NURSE ---
1311-pt to [facility] with tech for VQ scan. family at bedside. pt received pain medication prior to scan for abdominal pain
--- NOTE | 2022-03-05 15:01 | PM.DS ---
DS: Providers Provider Date of Service: 03/05/22 Date of admission: 03/02/22 09:15 Primary care physician: Katalina Larson MD Consults: 03/02/22 16:26 Consult to General Surgery Routine Consulting Provider: Angela Mac Reason for consultation: SBO Has provider been notified: No 03/03/22 07:29 Consult to Gastroenterology Routine Consulting Provider: Bindu Craig Reason for consultation: gib Has provider been notified: No 03/03/22 07:41 Consult to Vascular Surgery Routine Consulting Provider: Corky Kaufman Reason for consultation: h/o DVT on AC, now with GIB Has provider been notified: No Attending physician on discharge: Conrad Freitas Discharging clinician: Deborah Johnson DS: Diagnosis Discharge Diagnosis (1) DVT (deep venous thrombosis): Status: Acute (2) GI bleed: Status: Acute (3) Anemia: Status: Acute (4) Small intestine obstruction: Status: Acute DS: Summary Hospital Course Hospital Course: HP as per admitting provider Mrs. Turner was admitted to the ICU this morning with upper GI bleeding. The patient is a 67 yo woman with advanced metastatic ovarian cancer, first diagnosed in 2013, with recurrence in 2016, and had been on chemotherapy until 2019.? She has been treated previously at [facility] and at [facility].? Her last visit with her oncologist Dr. Calhoun was in July,.? She has not received any chemotherapy since 2019.? In June 2020 she was noted to have progression of her disease and developed an enterovesical fistula.? In December of 2020 she underwent laparotomy, small-bowel resection, repair of a colovesical fistula, and bladder repair.? 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 In July 2021 her oncologist discussed DNR/DNI status and hospice care with the patient, given that she had significant progression of her cancer and her performance status had declined significantly.? She was felt not to be candidate for further chemotherapy.? However, the patient was not willing to agree to hospice care. The patient was admitted to [facility] in September, with pelvic pain and colovesical fistula.? CT scan showed extensive carcinomatosis and extensive disease in her pelvis with multiple peritoneal implants, worsening pulmonary nodules, and metastatic disease in the liver.? A Moses catheter was placed and the Moses catheter tip entered an adjacent small bowel loop.? At that time, Dr. Duenas advised that the patient was no longer a candidate for palliative chemotherapy.? She was treated for UTI.? For iron deficiency anemia, she recommended blood transfusion.? The patient was seen by Dr. Lyn and he opined that she is not a candidate for surgical intervention.? From the notes that I read in her chart, it seems that the family was resistant to hospice and DNR status, but the patient herself did not want any intubation or artificial life support and was more receptive to the idea of hospice care.? Ultimately she was discharged home on antibiotics. She was readmitted February 04-February 15 for failure to thrive.? She was found to have hyponatremia, possible oral HSV with pain in the mouth, and chronic pain. ?On February 07, she was found to have DVT of the RLE.? She was started on Eliquis.? She had some rectal bleeding at that hospitalization, thought to be hemorrhoidal.? She was transfused 2 units of RBCs.? She was treated with IV acyclovir and nystatin, and she was given PPN.? Family did not wish to have a PEG.? As far as I can tell, she was discharged back to home. HISTORY OF PRESENT ILLNESS: The patient was BIBA from home early this morning because the family called because the patient was vomiting ?dark stuff all day?, and passing blood in her stool.? Per EMS, on arrival the patient had Sat in low 60s.? On 6 L nasal cannula, SpO2 was high 90s. In the ED, the patient was complaining of nausea and vomiting and abdominal pain.? Heart rate was 123, blood pressure 133/70, respiratory rate was 17 on 3 L oxygen, with sat of 99%.? She was afebrile.? Height is 5 ft, weight 45 kg, BMI 18.? The patient was alert, and oriented x3.? Breathing easy.? The abdomen was soft, but tender throughout.? Digital rectal exam showed fresh blood, and a small gush of red blood.? There was stool and blood in the vaginal vault. Labs in the ED were notable for a white count 19.6, hemoglobin 8.2 (was 8.8 one week ago), PT 47/3.9, sodium was 135, BUN/creatinine 23/1.2 (was 10/0.7), bicarb was 24, glucose was 60, lactic acid was 4.5, magnesium was 1.5, total bili was 1.9 (was 0.8) albumin was 1.5.? Venous blood gas showed 7.55/31/+[address] (compared to CT from February 04) showed several dilated small bowel loops in the left abdomen, not seen on the earlier CT, concerning for obstruction. ?A discrete transition point is not identified.? Increasing soft tissue density in the pelvis suspicious for worsening malignancy.? Moderate bilateral hydroureteronephrosis, similar on the left and increased in the right compared to prior CT, concerning for sequelae of mass effect on the distal ureters.? Redemonstrated extensive hepatic masses and retroperitoneal and bilateral inguinal lymphadenopathy. The patient was given Kcentra, an amp of D50, ceftriaxone, magnesium, 1 unit of blood, and IV fluids.? On my recommendation, the patient was also given Protonix and octreotide, and scheduled for admission to ICU.? There was no further rectal bleeding in the ED.? HR came down to about 100, BP dropped into the 90s but then came up to the 110s range.? Lactate improved to 3.8 . Extensive conversation was had with the patients family, from the intensive care provider, regarding poor outcomes with resuscitation for the patient, family insists on full resuscitation including CPR and intubation. 03/05/22 Family has been quite difficult to deal with. Daughter this morning was concerned that the potassium was causing the patient to have tachycardia. Nursing staff also informed me that she was caught self medicating her mother with what is presumed to be home oxycodone and she has been shutting off the IV pumps. She was told firmly this morning that she is not to self medicate her mother and she is not to touch the IV pumps and she should locate nursing staff for that. She stated understanding. The family is declining IV morphine and IV dilaudid for the patients pain control, at this point no one is entirely sure why. Discussion was had with Osmar Tobin, culinary director and he was made aware of the situation. It seems like the patient would be me more comfortable at home being taken care of by her family. The family understands that she is terminally ill. Dysphagia speech eval rec puree diet may continue IV fluids at home as she was before She should now have D5NS due to episodes of hypoglycemia which are related to poor appetite Possible SBO. NO further vomiting dilated bowel loops but no discrete transition point on CT KUB showed no ileus or obstruction GI bleed. No further bleeding H&H stable Not candidate for any invasive measures such as EGD Treated with IV PPI and octreotide Eliquis on hold. given kcentra in ED Hypokalemia poor intake replete follow BMP Gram negative tess bacteremia 2/2 blood cultures + probable urinary source given colovesicular fistula UCx >100,000 mixed bella Treated with zosyn 14 days total oral abx Severe protein calorie malnutrition enocurage oral intake IV fluids at home Hypoglycemia r/t to poor po intake continue D5 drip at home h/o DVT Eliquis on hold for GIB vascular consult for IVC filter placement, which would be a better option as opposed to anticoagulation, The patients family has declined the IVC filter specifically her daughter Noemy. follow up with PCP prior to restarting Eliquis, although she is high risk for bleeding Advanced metastatic cancer with colovesicular fistula CT abdomen showing extensive metastases No longer candidate for palliative care Not a surgical candidate for repair of fistula Multiple providers have recommended hospice, family has declined on numerous occasions Pain control thrombocytopenia likely r/t acute illness follow CBC Not requiring oxygen on home o2 evaluation Time Spent with Patient Time attestation: Total time spent providing and/or coordinating discharge services: Discharge coordination time: Greater than 30 minutes Quality: Safe Use of Opioids Does Pt have an Active Cancer Diagnosis on the Problem List?: No Quality: Stroke Does the patient have a stroke diagnosis?: No Physical Exam Vital Signs: Vital Signs: Last Vital Signs Temp 98.1 F 03/05/22 11:39 Pulse 137 H 03/05/22 11:39 Resp 20 03/05/22 11:39 BP 119/60 03/05/22 11:39 Pulse Ox 100 03/05/22 11:39 O2 Del Method 03/05/22 11:39 O2 Flow Rate 2 03/05/22 11:39 Oxygen Flow Rate 2 03/02/22 10:43 BMI result Body Mass Index 19.1 Appearing in no acute distress, thin and frail head is normocephalic atraumatic eyes pupils are PERRLA sclera is anicteric mouth throat mucous membranes are intact and moist neck is supple no lymphadenopathy, no JVD noted lung sounds are clear to auscultation heart regular rate rhythm, clear S1, S2 positive bowel sounds, abdomen is soft, nontender neuro patient is alert , sleepy DS: Data Data Completed and Pending Completed studies during hospitalization [Text1]: Procedures Insertion of Infusion Device into Superior Vena Cava, Percutaneous Approach (05/03/21) Transfusion of Nonautologous Red Blood Cells into Peripheral Vein, Percutaneous Approach (02/04/22) Labs on day of discharge: Laboratory Results - last 24 hr 03/04/22 03/04/22 03/04/22 15:39 16:38 16:38 WBC RBC Hgb 10.7 L Hct 32.1 L MCV MCH MCHC RDW Plt Count MPV Immature Gran % (Auto) Neut % (Auto) Lymph % (Auto) Posey % (Auto) Eos % (Auto) Baso % (Auto) Lymph # (Auto) Posey # (Auto) Eos # (Auto) Baso # (Auto) Abs Immat Gran (auto) Absolute Neuts (auto) Absolute Nucleated RBC Nucleated RBC % (auto) Sodium Potassium Chloride Carbon Dioxide Anion Gap BUN Creatinine Estim Creat Clear Calc Estimated GFR POC Glucose 60 Random Glucose Calcium Troponin I High Sens 5.9 03/04/22 03/04/22 03/04/22 17:54 19:11 19:53 WBC RBC Hgb Hct MCV MCH MCHC RDW Plt Count MPV Immature Gran % (Auto) Neut % (Auto) Lymph % (Auto) Posey % (Auto) Eos % (Auto) Baso % (Auto) Lymph # (Auto) Posey # (Auto) Eos # (Auto) Baso # (Auto) Abs Immat Gran (auto) Absolute Neuts (auto) Absolute Nucleated RBC Nucleated RBC % (auto) Sodium Potassium Chloride Carbon Dioxide Anion Gap BUN Creatinine Estim Creat Clear Calc Estimated GFR POC Glucose 66 58 L* 138 H Random Glucose Calcium Troponin I High Sens 03/05/22 03/05/22 03/05/22 02:32 03:00 03:36 WBC RBC Hgb Hct MCV MCH MCHC RDW Plt Count MPV Immature Gran % (Auto) Neut % (Auto) Lymph % (Auto) Posey % (Auto) Eos % (Auto) Baso % (Auto) Lymph # (Auto) Posey # (Auto) Eos # (Auto) Baso # (Auto) Abs Immat Gran (auto) Absolute Neuts (auto) Absolute Nucleated RBC Nucleated RBC % (auto) Sodium Potassium Chloride Carbon Dioxide Anion Gap BUN Creatinine Estim Creat Clear Calc Estimated GFR POC Glucose 58 L* 46 L* 109 Random Glucose Calcium Troponin I High Sens 03/05/22 03/05/22 03/05/22 05:01 07:25 11:08 WBC RBC Hgb Hct MCV MCH MCHC RDW Plt Count MPV Immature Gran % (Auto) Neut % (Auto) Lymph % (Auto) Posey % (Auto) Eos % (Auto) Baso % (Auto) Lymph # (Auto) Posey # (Auto) Eos # (Auto) Baso # (Auto) Abs Immat Gran (auto) Absolute Neuts (auto) Absolute Nucleated RBC Nucleated RBC % (auto) Sodium Potassium Chloride Carbon Dioxide Anion Gap BUN Creatinine Estim Creat Clear Calc Estimated GFR POC Glucose 76 101 96 Random Glucose Calcium Troponin I High Sens 03/05/22 03/05/22 11:40 11:40 WBC 17.1 H RBC 3.56 L Hgb 10.4 L Hct 31.5 L MCV 88.5 MCH 29.2 MCHC 33.0 RDW 21.5 H Plt Count 114 L MPV 10.4 Immature Gran % (Auto) 1.5 H Neut % (Auto) 86.0 H Lymph % (Auto) 6.1 L Posey % (Auto) 6.1 Eos % (Auto) 0.2 Baso % (Auto) 0.1 Lymph # (Auto) 1.1 L Posey # (Auto) 1.0 Eos # (Auto) 0.0 Baso # (Auto) 0.0 Abs Immat Gran (auto) 0.26 H Absolute Neuts (auto) 14.7 H Absolute Nucleated RBC 0.020 H Nucleated RBC % (auto) 0.1 Sodium 146 H Potassium 3.3 Chloride 117 H Carbon Dioxide 20 L Anion Gap 12 BUN 19 H Creatinine 1.24 Estim Creat Clear Calc 30.8 Estimated GFR 43 POC Glucose Random Glucose 93 Calcium 6.8 L Troponin I High Sens Preliminary micro results at discharge 03/02/22 02:48 Blood Culture - Preliminary Blood - Venous Gram negative tess Klebsiella pneumoniae 03/02/22 02:45 Blood Culture - Preliminary Blood - Venous Gram negative tess Discharge Plan Discharge Anticipated Discharge Date/Time: 03/05/22 15:16 Patient Disposition: Home Health Service Discharge Diagnosis: GI bleed Dysphagia Hypoglycemia Gram-negative tess bacteremia Severe protein calorie malnutrition Advanced metastatic cancer with colovesicular fistula Referrals: [facility] [Outside] - 1 Day (RESUMPTION OF PALLIATIVE CARE ) Katalina Larson MD [Primary Care Provider] - 1 Week Discharge Medications: New cefuroxime axetil 500 mg tablet 500 mg PO BID Qty: 20 0RF oxycodone 10 mg tablet 10 mg PO Q4H PRN (Reason: pain) Qty: 30 0RF Rx Instructions: Partial Fill upon patient request. Continued sennosides-docusate sodium [Senna Plus] 8.6-50 mg tablet 2 tab PO DAILY PRN (Reason: Constipation) Label Comments: PER PATIENT: DOES NOT TAKE REGULARLY fentanyl 25 mcg/hr patch 72 hour 1 patch topical Q3D Rx Instructions: apply with 12 mcg/hr patch trazodone 50 mg tablet 50 mg PO BEDTIME oxybutynin chloride 10 mg tablet extended release 24 hr 1 tab PO DAILY thiamine HCl (vitamin B1) 100 mg tablet 1 tab DAILY fluticasone propionate 50 mcg/actuation spray,suspension 1 spray intranasal DAILY oxycodone 10 mg tablet 1 tab PO Q8H melatonin 5 mg tablet 1 tab PO BEDTIME multivitamin with folic acid [Daily-Beltran (with folic acid)] 400 mcg tablet 1 tab PO DAILY ondansetron HCl 4 mg tablet 1 tab PO Q8H PRN (Reason: Nausea) fentanyl 12 mcg/hr patch 72 hour 1 patch topical Q3D Rx Instructions: apply with 25 mcg/hr patch Prilosec 10 mg susp,delayed release for recon 20 mg PO DAILY@0630 Pediatric Oint (cod liver oil) Ointment 1 ea TOPICAL TID nystatin 100,000 unit/mL Suspension 200,000 unit buccal QID Qty: 200 0RF Protocol: Apply to: Apply to: swish and swallow Discontinued nitrofurantoin monohyd/m-cryst 100 mg capsule 1 cap DAILY Eliquis 5 mg tablet 5 mg PO BID Qty: 60 0RF Hold Instructions: Resume on 03/12/22. Follow up with primary care provider prior to restarting Discharge Orders: Discharge Order (Routine); Ordered 03/05/22 Ordered By: Deborah Johnson Diet: Advance to usual diet Activity on Discharge: As tolerated Stand Alone Forms: Patient Portal Discharge page Care Plan Goals: Maintaining blood sugars at an acceptable level Report any further bleeding to primary care provider Health Concerns: GI bleed Dysphagia Hypoglycemia Gram-negative tess bacteremia Severe protein calorie malnutrition Advanced metastatic cancer with colovesicular fistula Plan of Treatment: Take all medications as prescribed Home IV fluids will be switched to D5 normal saline secondary to hypoglycemia Encourage oral intake, recommendation is for pureed diet Pain management with oxycodone and fentanyl patch last patch was placed on 03/04/2022 Take Ceftin 500mg twice daily as prescribed Stop Khari and follow up with primary care provider within one week to determine whether you should on be anticoagulation, you are a high risk for bleeding. Assessment: See discharge summary
--- NOTE | 2022-03-05 15:30 | MHC.SLORD ---
Speech Language Pathology Order Status: Pt NPO pending Nuclear Med procedure. Will re-attempt tomorrow.
[2022-03-05 16:00] VITALS: BP 112/56; PULSE 147; RESP 18; TEMP 36.8; O2SAT 99
[2022-03-05] MEDS: Dextrose 5 % 1,000 ML 100 ML IVCONT (16:11)
--- NOTE | 2022-03-05 16:33 | MHC.CM.PN ---
PT DISCHARGING HOME W/RESUMPTION OF [facility] FOR PALLIATIVE CARE, PT WILL HAVE HOME O2 EVAL COMPLETED PRIOR TO D/C, CM MET W/PT WHO REQUESTED AMBULANCE TRANSPORT HOME, PER [facility] THE EARLIEST THEY CAN TRANSPORT IS 8PM HOWEVER WILL ATTEMPT TO COME SOONER IF POSSIBLE.
[2022-03-05 16:47] LABS: Glucose, Whole Blood 78 mg/dL (60-115)
[2022-03-05 17:35] VITALS: PULSE 120; O2SAT 95
[2022-03-05 20:00] VITALS: BP 112/59; PULSE 130; RESP 18; TEMP 36.9; O2SAT 96
== END 2022-03-05 21:22 | disposition home health service (06) | DRG 377 ==
LOC: HO.ED 09:12 → HO.EDOVER 09:21 → HO.ICU 09:24 → HO.IMC 18:01 → HO.ICU 20:14 → HO.IMC 03-03 01:24
PROVIDERS: Physician Assistant Medical; Admitting Provider Anesthesiology; Emergency Provider Emergency Medicine; PCP Pediatrics; Visit Provider Nurse Practitioner Acute Care
DX: K92.0 Hematemesis (principal); E43 Unspecified severe protein-calorie malnutrition; D68.32 Hemorrhagic disorder due to extrinsic circulating anticoagulants; C56.9 Malignant neoplasm of unspecified ovary; C78.7 Secondary malignant neoplasm of liver and intrahepatic bile duct; C80.0 Disseminated malignant neoplasm, unspecified; N13.6 Pyonephrosis; Z68.1 Body mass index [BMI] 19.9 or less, adult; N32.1 Vesicointestinal fistula; T45.515A Adverse effect of anticoagulants, initial encounter; Z66 Do not resuscitate; D63.0 Anemia in neoplastic disease; E87.6 Hypokalemia; R13.10 Dysphagia, unspecified; E83.42 Hypomagnesemia; R00.0 Tachycardia, unspecified; D69.6 Thrombocytopenia, unspecified; Z20.822 Contact with and (suspected) exposure to COVID-19; K62.5 Hemorrhage of anus and rectum; Z86.718 Personal history of other venous thrombosis and embolism; Z91.041 Radiographic dye allergy status; Z92.21 Personal history of antineoplastic chemotherapy; E16.2 Hypoglycemia, unspecified; Z88.0 Allergy status to penicillin; Z79.01 Long term (current) use of anticoagulants; Z79.51 Long term (current) use of inhaled steroids; Z79.899 Other long term (current) drug therapy
CPT/HCPCS: 36415; 71045; 74018; 74176; 78580; 80048; 80053; 80076; 81001; 82040; 82271; 82272; 82803; 82947; 83605; 83690; 83735; 83880; 84100; 84484; 85014; 85018; 85025; 85027; 85379; 85610; 86850; 86900; 86901; 86923; 87040; 87077; 87086; 87186; 87205; 87635; 92610; 93005; 93971; 96361; 96365; 96366; 96367; 96375; 99285; A9540; C1758; J1170; J1956; J2270; J2354; J2405; J2543; J2550; J3475; J7168; P9016; P9047